=== PATIENT | female | born 1965 | race Caucasian/White ===

== ENCOUNTER 2016-08-01 08:59 | Emergency (ER) | payer MEDICAID ==
[~2016-08-01] VITALS: Ht 162.6 cm; Wt 61.8 kg
[~2016-08-01 08:59] MED LIST: CORT1SOL RIGHT EAR; FURO1TAB62 PO; LEVO50TA4 PO; SPIR50TA PO; XIFA550T4 PO
[2016-08-01 09:05] VITALS: BP 113/59; PULSE 92; RESP 16; TEMP 99; O2SAT 97
[2016-08-01] MEDS ORDERED: ONDANSETRON ODT 4 MG TAB PO ONE (09:30)
[2016-08-01] MEDS ORDERED: DICYCLOMINE HCL 20 MG/2 ML VIAL IM ONE (09:30)
[2016-08-01] MEDS ORDERED: SODIUM CHLORIDE 0.9% FLUSH 5 ML FLUSH IVF PRN (09:30)
--- NOTE | 2016-08-01 09:33 | PD ---
HPI Chief Complaint: GI Complaint Time Seen by Provider: 09:16 Travel History International Travel<30 days: No Contact w/Intl Traveler<30days: No Traveled to known affect area: No History of Present Illness HPI Patient presents with complaints of nausea vomiting and loose stools since last night. Patient has concerns of blood in her stool. States it is bright red. Patient with history of cirrhosis and ascites. 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 Reports poor fluid intake. Denies fever. Positive sick contacts. No new rashes. Reports alcohol cessation for 4 years. PFSH Past Medical History Hx Anticoagulant Therapy: No Arthritis: No Asthma: No Autoimmune Disease: No Anxiety: No Depression: Yes Heart Rhythm Problems: No Cancer: No Cardiovascular Problems: No High Cholesterol: No Chemotherapy: No Chest Pain: No Congestive Heart Failure: No Cirrhosis: Yes COPD: No Cerebrovascular Accident: No Diabetes: No Diminished Hearing: No Endocrine: Yes Gastrointestinal Disorders: Yes (HX OF UPPER GI BLEED;ESOPHAGEAL VARICES ; BLEEDING ULCERS) GERD: Yes Genitourinary: No Hepatitis: Yes (ALCOHOLIC HEPATITIS) Hiatal Hernia: No Immune Disorder: No Kidney Stones: No Musculoskeletal: No Neurologic: Yes Psychiatric: Yes Reproductive: No Respiratory: No Immunizations Current: Yes Migraines: No Radiation Therapy: No Renal Failure: No Seizures: No Sickle Cell Disease: No Sleep Apnea: No Thyroid Disease: Yes (Hypothyroidism) Ulcer: Yes ?: Not Menopausal: Yes Past Surgical History Abdominal Surgery: Yes (umbilical hernia repair ; CHOLECYSTECTOMY) AICD: No Body Medical Devices: NONE Cardiac Surgery: No Cholecystectomy: Yes (2006) Ear Surgery: No Endocrine Surgery: No Eye Surgery: Yes (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) Genitourinary Surgery: No Gynecologic Surgery: Yes (PT STATES AFTER OF DAUGHTER PLACENTA WAS PARITALLY RETAINED; ) Hysterectomy: No Insulin Pump: No Joint Replacement: Yes (RIGHT HIP REPLACEMENT) Oral Surgery: Yes (MULTIPLE ENDOSCOPY WITH CLIPPING AND BANDING) Pacemaker: No Thoracic Surgery: No Other Surgery: Yes (Cholecystectomy) Social History Alcohol Use: No (H/O ALCOHOLISM QUIT 3 YEARS AGO) Tobacco Use: No Substance Use: Yes Allergies-Medications (Allergen,Severity, Reaction): Coded Allergies: Codeine (Verified Allergy, Severe, VOMITING, 08/01/16) MILD REACTION- VOMITING Morphine (Verified Allergy, Severe, Nausea/Vomiting, 08/01/16) MILD REACTION Aspirin (Verified Adverse Reaction, Severe, Bleeding, 08/01/16) STOMACH "BLEEDS" PER PT ; SEVERE REACTION Nortriptyline (Verified Adverse Reaction, Severe, Hallucinations, 08/01/16) vomiting ; INTERMEDIATE REACTION Reported Meds & Prescriptions Reported Meds & Active Scripts Active Zofran (Ondansetron HCl) 4 Mg Tab 4 Mg PO Q6HR PRN Levsin (Hyoscyamine Sulfate) 0.125 Mg Tab 0.125 Mg PO Q4H Reported Zinc 25 Mg Tab 25 Mg PO DAILY Magnesium Citrate 100 Mg Tab 100 Mg PO DAILY Klor-Con M10 (Potassium Chloride Microencaps) 10 Meq Tab 10 Meq PO DAILY Levothyroxine (Levothyroxine Sodium) 50 Mcg Tab 25 Mcg PO DAILY Spironolactone 50 Mg Tab 50 Mg PO DAILY Lasix (Furosemide) 20 Mg Tab 20 Mg PO DAILY Xifaxan (Rifaximin) 550 Mg Tab 550 Mg PO DAILY Review of Systems General / Constitutional: No: Fever Eyes: No: Visual changes HENT: No: Headaches Cardiovascular: No: Chest Pain or Discomfort Respiratory: No: Shortness of Breath Gastrointestinal: Positive: Nausea, Vomiting, Diarrhea, No: Abdominal Pain Genitourinary: No: Dysuria Musculoskeletal: No: Pain Skin: No Rash Neurologic: No: Weakness Psychiatric: No: Depression Endocrine: No: Polydipsia Hematologic/Lymphatic: No: Easy Bruising Physical Exam Narrative GENERAL: Well-nourished, well-developed patient. SKIN: Warm and dry. HEAD: Normocephalic. EYES: No scleral icterus. No injection or drainage. NECK: Supple, trachea midline. No JVD or lymphadenopathy. CARDIOVASCULAR: Regular rate and rhythm without murmurs, gallops, or rubs. RESPIRATORY: Breath sounds equal bilaterally. No accessory muscle use. GASTROINTESTINAL: Abdomen soft, distended, nontender, positive fluid wave MUSCULOSKELETAL: No cyanosis, or edema. BACK: Nontender without obvious deformity. No CVA tenderness. Data Data Last Documented VS Vital Signs Date Time Temp Pulse Resp B/P Pulse Ox O2 Delivery O2 Flow Rate FiO2 08/01/16 09:31 20 08/01/16 09:05 99.0 92 113/59 97 Orders Complete Blood Count With Diff (08/01/16 09:16) Urinalysis - C+S If Indicated (08/01/16 09:16) Iv Access Insert/Monitor (08/01/16 09:16) Sodium Chloride 0.9% Flush (Ns Flush) (08/01/16 09:30) Dicyclomine Inj (Bentyl Inj) (08/01/16 09:30) Ondansetron Odt (Zofran Odt) (08/01/16 09:30) Urine Culture (08/01/16 09:35) Labs Laboratory Tests Test 08/01/16 08/01/16 09:35 09:38 Urine Collection Type CLEAN CATCH Urine Color DILAN Urine Turbidity SLIGHT Urine pH 8.0 Urine Specific [place] 1.026 Urine Protein TRACE mg/dL Urine Glucose (UA) NEG mg/dL Urine Ketones TRACE mg/dL Urine Occult Blood TRACE Urine Nitrite NEG Urine Bilirubin NEG Urine Leukocyte Esterase NEG Urine RBC 0-3 /hpf Urine WBC 0-2 /hpf Urine Squamous Epithelial 6-8 /hpf Cells Urine Amorphous Sediment MOD Urine Bacteria MOD /hpf Microscopic Urinalysis Comment CULTURE INDICATED Urine Collection Time 0935 White Blood Count 3.5 TH/MM3 Red Blood Count 3.67 MIL/MM3 Hemoglobin 12.2 GM/DL Hematocrit 35.5 % Mean Corpuscular Volume 96.7 FL Mean Corpuscular Hemoglobin 33.1 PG Mean Corpuscular Hemoglobin 34.2 % Concent Red Cell Distribution Width 16.0 % Platelet Count 79 TH/MM3 Mean Platelet Volume 7.1 FL Neutrophils (%) (Auto) 55.8 % Lymphocytes (%) (Auto) 19.0 % Monocytes (%) (Auto) 18.6 % Eosinophils (%) (Auto) 4.8 % Basophils (%) (Auto) 1.8 % Neutrophils # (Auto) 1.9 TH/MM3 Lymphocytes # (Auto) 0.7 TH/MM3 Monocytes # (Auto) 0.6 TH/MM3 Eosinophils # (Auto) 0.2 TH/MM3 Basophils # (Auto) 0.1 TH/MM3 CBC Comment AUTO DIFF Differential Comment AUTO DIFF CONFIRMED Platelet Estimate LOW Platelet Morphology Comment NORMAL MDM Medical Decision Making Medical Screen Exam Complete: Yes Emergency Medical Condition: Yes Differential Diagnosis Gastroenteritis, progressive cirrhosis, reflux Narrative Course Assessment and plan discussed with patient at bedside. Hemoccult positive. Tolerated fluid challenge. CBC did not reveal anemia. Diagnosis Primary Impression: Gastroenteritis Additional Impression: BRBPR (bright red blood per rectum) Additional Instructions: Anti-medic and antispasmodic as directed. Encouraged to keep her Tuesday appointment with her thermodynamicist. Encouraged a bland high-fiber brat diet. Encouraged fluids. Med/Other Pt SpecificInfo: Prescription(s) given Scripts Ondansetron (Zofran)4 Mg Tab4 Mg PO Q6HR PRN (NAUSEA OR VOMITING) #20 TAB Ref 0 Prov:Alonso Salas MD 08/01/16 Hyoscyamine (Levsin)0.125 Mg Tab0.125 Mg PO Q4H #20 TAB Ref 0 Prov:Alonso Salas MD 08/01/16 Disposition: DISCHARGE HOME Condition: Good Alonso Salas MD Aug 01, 2016 09:33
[2016-08-01] MEDS ORDERED: ZINC25TA PO (09:39)
[2016-08-01] MEDS ORDERED: MAGN100T2 PO (09:39)
[2016-08-01] MEDS ORDERED: POTA-88 PO (09:39)
[2016-08-01 09:46] LABS: AUTOMATED NEUTROPHIL # 1.9 TH/MM3 (1.8-7.7); BASOPHIL # 0.1 TH/MM3 (0-0.2); BASOPHIL % 1.8 % (0.0-2.0); EOSINOPHIL # 0.2 TH/MM3 (0-0.4); EOSINOPHIL % 4.8 % (0.0-4.0); HEMATOCRIT 35.5 % (35.0-46.0); LYMPHOCYTE # 0.7 TH/MM3 (1.0-4.8); MEAN CELL VOLUME 96.7 FL (80.0-100.0); MEAN CORPUSCULAR HEMOGLOBIN 33.1 PG (27.0-34.0); MEAN CORPUSCULAR HGB CONC 34.2 % (32.0-36.0); MONO % 18.6 % (0.0-8.0); NEUT % 55.8 % (16.0-70.0); PLATELET COUNT 79 TH/MM3 (150-450); RED BLOOD COUNT 3.67 MIL/MM3 (4.00-5.30); WHITE BLOOD COUNT 3.5 TH/MM3 (4.0-11.0)
[2016-08-01 09:49] LABS: HEMO FLAGS AUTO DIFF
[2016-08-01 09:57] LABS: BLOOD, URINE TRACE (NEG); GLUCOSE,URINE NEG (NEG); KETONE, URINE TRACE mg/dL (NEG); NITRITE,URINE NEG (NEG)
[2016-08-01] MEDS ORDERED: ZOFR4TAB PO (09:58)
[2016-08-01] MEDS ORDERED: LEVS0.123 PO (09:58)
[2016-08-01 09:59] LABS: METHOD OF COLLECTION CLEAN CATCH; URINE COLOR AMBER (YELLW/STRAW)
[2016-08-01 10:02] LABS: BACTERIA, URINE MOD /hpf; COMMENT (UR) CULTURE INDICATED; COMMENT2 (UR) MUCOUS PRESENT; CULTURE IF INDICATED CULTURE INDICATED; RBC, URINE 0-3 /hpf (0-3); WBC, URINE 0-2 /hpf (0-5)
[2016-08-01 10:06] LABS: PLATELET ESTIMATE SMEAR LOW (NORMAL); PLATELET MORPHOLOGY NORMAL (NORMAL); SCAN/DIFF AUTO DIFF CONFIRMED
[2016-08-01 11:20] VITALS: BP 115/61
== END 2016-08-01 11:22 | disposition home or self-care (01) ==
LOC: PHED 08:59
DX: K52.9 Noninfective gastroenteritis and colitis, unspecified (principal); K62.5 Hemorrhage of anus and rectum; K74.60 Unspecified cirrhosis of liver; R18.8 Other ascites; K21.9 Gastro-esophageal reflux disease without esophagitis; E03.9 Hypothyroidism, unspecified; R82.90 Unspecified abnormal findings in urine
CPT/HCPCS: 81001; 85025; 87086; 96372; 99284; J0500

== ENCOUNTER 2016-08-07 08:40 | Emergency (ER) | payer MEDICAID ==
[~2016-08-07] VITALS: Ht 162.6 cm; Wt 62.0 kg
[~2016-08-07 08:40] MED LIST changes: -CORT1SOL RIGHT EAR; +LEVS0.123 PO; +MAGN100T2 PO; +POTA-88 PO; +ZINC25TA PO; +ZOFR4TAB PO
[2016-08-07 08:44] VITALS: BP 113/66; PULSE 86; RESP 16; TEMP 98.6; O2SAT 97
[2016-08-07] MEDS ORDERED: PANT40TA3 PO (09:05)
[2016-08-07] MEDS ORDERED: SODIUM CHLORIDE 0.9% FLUSH 5 ML FLUSH IVF PRN (09:15)
--- NOTE | 2016-08-07 09:16 | PD ---
HPI Chief Complaint: Abdominal Pain Time Seen by Provider: 09:07 Travel History International Travel<30 days: No Contact w/Intl Traveler<30days: No Traveled to known affect area: No History of Present Illness HPI 51-year-old female with history of cirrhosis, GI bleeding, ascites, follows up with Drs. Tsai, seen last week for gastroenteritis, presents to the ER today because of increased abdominal bloating, discomfort, and shortness of breath. She states that she had been seen by her GI doctor on Tuesday and they had increased her furosemide and her spironolactone. However, she is still feeling increased bloating. Pain is rated 8 out of 10. She denies any vomiting, fevers, blood in the stools, black stools, or any other symptoms. She states that she had some blood in the stools as well during her last visit. Modifying Factors: None Associated Signs & Symptoms: Increased abdominal girth, abdominal discomfort, shortness of breath Risk Factors: Cirrhosis, ascites PFSH Past Medical History Hx Anticoagulant Therapy: No Arthritis: No Asthma: No Autoimmune Disease: No Anxiety: No Depression: Yes Heart Rhythm Problems: No Cancer: No Cardiovascular Problems: No High Cholesterol: No Chemotherapy: No Chest Pain: No Congestive Heart Failure: No Cirrhosis: Yes COPD: No Cerebrovascular Accident: No Diabetes: No Diminished Hearing: No Endocrine: Yes Gastrointestinal Disorders: Yes (HX OF UPPER GI BLEED;ESOPHAGEAL VARICES ; BLEEDING ULCERS) GERD: Yes Genitourinary: No Hepatitis: Yes (ALCOHOLIC HEPATITIS) Hiatal Hernia: No Immune Disorder: No Kidney Stones: No Medical other: Yes (ETHROMBOCYTOPENIA) Musculoskeletal: No Neurologic: Yes Psychiatric: Yes Reproductive: No Respiratory: No Immunizations Current: Yes Migraines: No Radiation Therapy: No Renal Failure: No Seizures: No Sickle Cell Disease: No Sleep Apnea: No Thyroid Disease: Yes (Hypothyroidism) Ulcer: Yes ?: Not LMP: MENOPAUSAL Menopausal: Yes Past Surgical History Abdominal Surgery: Yes (umbilical hernia repair , ESOPHAGEAL BANDING) AICD: No Body Medical Devices: NONE Cardiac Surgery: No Cholecystectomy: Yes (2006) Ear Surgery: No Endocrine Surgery: No Eye Surgery: Yes (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) Genitourinary Surgery: No Gynecologic Surgery: Yes (PT STATES AFTER OF DAUGHTER PLACENTA WAS PARITALLY RETAINED; ) Hysterectomy: No Insulin Pump: No Joint Replacement: Yes (RIGHT HIP REPLACEMENT) Oral Surgery: Yes Pacemaker: No Thoracic Surgery: No Other Surgery: Yes (Cholecystectomy) Social History Alcohol Use: No (H/O ALCOHOLISM QUIT 3 YEARS AGO) Tobacco Use: No Substance Use: Yes Allergies-Medications (Allergen,Severity, Reaction): Coded Allergies: Codeine (Verified Allergy, Severe, VOMITING, 08/07/16) MILD REACTION- VOMITING Morphine (Verified Allergy, Severe, Nausea/Vomiting, 08/07/16) MILD REACTION Aspirin (Verified Adverse Reaction, Severe, Bleeding, 08/07/16) STOMACH "BLEEDS" PER PT ; SEVERE REACTION Nortriptyline (Verified Adverse Reaction, Severe, Hallucinations, 08/07/16) vomiting ; INTERMEDIATE REACTION Reported Meds & Prescriptions Reported Meds & Active Scripts Active Reported Pantoprazole (Pantoprazole Sodium) 40 Mg Tab 40 Mg PO DAILY Levothyroxine (Levothyroxine Sodium) 50 Mcg Tab 50 Mcg PO DAILY Spironolactone 50 Mg Tab 100 Mg PO DAILY Lasix (Furosemide) 20 Mg Tab 40 Mg PO DAILY Xifaxan (Rifaximin) 550 Mg Tab 550 Mg PO DAILY Review of Systems Except as stated in HPI: all other systems reviewed are Neg Physical Exam Narrative GENERAL: Well-nourished, well-developed middle aged white female patient in no acute distress at rest. SKIN: Warm and dry. HEAD: Normocephalic. EYES: No scleral icterus. No injection or drainage. NECK: Supple, trachea midline. CARDIOVASCULAR: Regular rate and rhythm without murmurs, gallops, or rubs. RESPIRATORY: Breath sounds equal bilaterally. No accessory muscle use. GASTROINTESTINAL: Abdomen moderately distended, nontender, positive fluid wave. MUSCULOSKELETAL: No cyanosis, or edema. BACK: Nontender without obvious deformity. No CVA tenderness. Data Data Last Documented VS Vital Signs Date Time Temp Pulse Resp B/P Pulse Ox O2 Delivery O2 Flow Rate FiO2 08/07/16 09:37 99 Room Air 08/07/16 08:44 98.6 86 16 113/66 Orders Complete Blood Count With Diff (08/07/16 09:07) Comprehensive Metabolic Panel (08/07/16 09:07) Lipase (08/07/16 09:07) Urinalysis - C+S If Indicated (08/07/16 09:07) Abdomen, Flat & Upright (08/07/16 ) Iv Access Insert/Monitor (08/07/16 09:07) Ecg Monitoring (08/07/16 09:07) Oximetry (08/07/16 09:07) Sodium Chloride 0.9% Flush (Ns Flush) (08/07/16 09:15) Chest, Single Ap (08/07/16 09:07) Furosemide Inj (Lasix Inj) (08/07/16 11:15) Labs Laboratory Tests Test 08/07/16 08/07/16 09:21 09:25 White Blood Count 4.5 TH/MM3 Red Blood Count 3.82 MIL/MM3 Hemoglobin 12.5 GM/DL Hematocrit 37.2 % Mean Corpuscular Volume 97.2 FL Mean Corpuscular Hemoglobin 32.7 PG Mean Corpuscular Hemoglobin 33.6 % Concent Red Cell Distribution Width 17.7 % Platelet Count 108 TH/MM3 Mean Platelet Volume 7.9 FL Neutrophils (%) (Auto) 54.8 % Lymphocytes (%) (Auto) 25.6 % Monocytes (%) (Auto) 11.8 % Eosinophils (%) (Auto) 5.7 % Basophils (%) (Auto) 2.1 % Neutrophils # (Auto) 2.4 TH/MM3 Lymphocytes # (Auto) 1.2 TH/MM3 Monocytes # (Auto) 0.5 TH/MM3 Eosinophils # (Auto) 0.3 TH/MM3 Basophils # (Auto) 0.1 TH/MM3 CBC Comment DIFF FINAL Differential Comment Sodium Level 137 MEQ/L Potassium Level 4.8 MEQ/L Chloride Level 104 MEQ/L Carbon Dioxide Level 24.5 MEQ/L Anion Gap 9 MEQ/L Blood Urea Nitrogen 5 MG/DL Creatinine 0.76 MG/DL Estimat Glomerular Filtration 80 ML/MIN Rate Random Glucose 101 MG/DL Calcium Level 7.5 MG/DL Protein Corrected Calcium 7.5 MG/DL Total Bilirubin 3.2 MG/DL Aspartate Amino Transf 87 U/L (AST/SGOT) Alanine Aminotransferase 35 U/L (ALT/SGPT) Alkaline Phosphatase 198 U/L Total Protein 7.0 GM/DL Albumin 1.9 GM/DL Lipase 96 U/L Urine Collection Type CLEAN CATCH Urine Color YELLOW Urine Turbidity CLEAR Urine pH 6.5 Urine Specific [place] 1.007 Urine Protein NEG mg/dL Urine Glucose (UA) NEG mg/dL Urine Ketones NEG mg/dL Urine Occult Blood NEG Urine Nitrite NEG Urine Bilirubin NEG Urine Leukocyte Esterase NEG Urine WBC 0-2 /hpf Urine Squamous Epithelial 0-5 /hpf Cells Microscopic Urinalysis Comment CULT NOT INDICATED Urine Collection Time 09:25 [facility] Medical Decision Making Medical Screen Exam Complete: Yes Emergency Medical Condition: Yes Medical Record Reviewed: Yes Interpretation(s) Laboratory Tests Test 08/07/16 09:21 Red Blood Count 3.82 MIL/MM3 (4.00-5.30) Red Cell Distribution Width 17.7 % (11.6-17.2) Platelet Count 108 TH/MM3 (150-450) Monocytes (%) (Auto) 11.8 % (0.0-8.0) Eosinophils (%) (Auto) 5.7 % (0.0-4.0) Basophils (%) (Auto) 2.1 % (0.0-2.0) Blood Urea Nitrogen 5 MG/DL (7-18) Estimat Glomerular Filtration 80 ML/MIN (>89) Rate Calcium Level 7.5 MG/DL (8.5-10.1) Protein Corrected Calcium 7.5 MG/DL (8.5-10.1) Total Bilirubin 3.2 MG/DL (0.2-1.0) Aspartate Amino Transf 87 U/L (15-37) (AST/SGOT) Alkaline Phosphatase 198 U/L (45-117) Albumin 1.9 GM/DL (3.4-5.0) Last 24 hours Impressions Chest X-Ray 08/07/16 0907 Signed Impressions: Service Date/Time: Sunday, August 07, 2016 09:25 - CONCLUSION: No acute disease. Chandrakant Srinivasan MD Abdomen X-Ray 08/07/16 0000 Signed Impressions: Service Date/Time: Sunday, August 07, 2016 09:21 - CONCLUSION: Nonobstructive bowel gas pattern. Chandrakant Srinivasan MD Differential Diagnosis Worsening ascites versus SBP versus obstruction Narrative Course Patient has no significant leukocytosis and abdomen is nontender, I do not suspect SBP in this case. X-ray of the abdomen did not reveal any signs of acute obstruction. Chest x-ray did not show any signs of acute pulmonary processes. Lab work did not show significant changes from baseline. Her liver enzymes are mildly elevated consistent with history of cirrhosis. Her ascites is moderate although not tense at this time. Vital signs are stable with normal saturations. She is not in acute distress in the ER. At this point, the case was discussed with Dr. Moscoso who is covering for patient's GI doctor and he states that at this point he would continue medical management on current dosages and give the patient a dose of Lasix here in the ER. He has recommended that the patient follow-up in the office this week to see how her medical management is going and she can always get paracentesis in the office as needed as well. In addition, he agrees with giving tramadol for pain as needed. Return for any worsening in symptoms as necessary. The plan has been discussed with her and she is agreeable. Diagnosis Primary Impression: OTHER ASCITES Referrals: Dillon Burnett MD Med/Other Pt SpecificInfo: Prescription(s) given Scripts Tramadol 50 Mg Tab50 Mg PO Q6H PRN (PAIN) #20 TAB Ref 0 Prov:Jennifer Levi MD 08/07/16 Disposition: 01 DISCHARGE HOME Condition: Stable Jennifer Levi MD Aug 07, 2016 09:16
[2016-08-07 09:32] LABS: BLOOD, URINE NEG (NEG); GLUCOSE,URINE NEG (NEG); KETONE, URINE NEG (NEG); NITRITE,URINE NEG (NEG); PH, URINE 6.5 (5.0-8.5)
[2016-08-07 09:33] LABS: AUTOMATED NEUTROPHIL # 2.4 TH/MM3 (1.8-7.7); BASOPHIL # 0.1 TH/MM3 (0-0.2); BASOPHIL % 2.1 % (0.0-2.0); EOSINOPHIL # 0.3 TH/MM3 (0-0.4); EOSINOPHIL % 5.7 % (0.0-4.0); HEMATOCRIT 37.2 % (35.0-46.0); HEMO FLAGS DIFF FINAL; LYMPH % 25.6 % (9.0-44.0); LYMPHOCYTE # 1.2 TH/MM3 (1.0-4.8); MEAN CELL VOLUME 97.2 FL (80.0-100.0); MEAN CORPUSCULAR HEMOGLOBIN 32.7 PG (27.0-34.0); MEAN CORPUSCULAR HGB CONC 33.6 % (32.0-36.0); MONO % 11.8 % (0.0-8.0); NEUT % 54.8 % (16.0-70.0); PLATELET COUNT 108 TH/MM3 (150-450); RED BLOOD COUNT 3.82 MIL/MM3 (4.00-5.30); RED CELL DISTRIBUTION WIDTH 17.7 % (11.6-17.2); WHITE BLOOD COUNT 4.5 TH/MM3 (4.0-11.0)
[2016-08-07 09:36] LABS: METHOD OF COLLECTION CLEAN CATCH; URINE COLOR YELLOW (YELLW/STRAW); WBC, URINE 0-2 /hpf (0-5)
[2016-08-07 09:37] VITALS: O2SAT 99
[2016-08-07 09:37] LABS: COMMENT (UR) CULT NOT INDICATED; CULTURE IF INDICATED CULT NOT INDICATED; SQUAMOUS EPITHELIAL CELL URINE 0-5 /hpf (0-5)
--- NOTE | 2016-08-07 09:46 | RADHPO ---
EXAM DATE/TIME: 08/07/2016 09:21 [facility] COMPARISON: No previous studies available for comparison. INDICATIONS : Abdomen pain, swelling, fever, cough, short of breath MEDICAL HISTORY : Liver failure, ascites SURGICAL HISTORY : Inguinal hernia repair. left hip ENCOUNTER: Initial ACUITY: 1 week PAIN SCORE: 8/10 LOCATION: Bilateral abdomen FINDINGS: Supine and upright views of the abdomen were performed. The abdominal bowel gas pattern is normal. No air fluid levels are seen. No abnormal masses, calcifications, or organomegaly is seen. The visu alized lower lungs are clear. No evidence of free intraperitoneal gas. Left hip prosthesis. The oss eous structures are unremarkable. CONCLUSION: Nonobstructive bowel gas pattern. Chandrakant Srinivasan MD on August 07, 2016 at 9:44 Board Certified Radiologist. This report was verified electronically.
--- NOTE | 2016-08-07 09:46 | RADHPO ---
EXAM DATE/TIME: 08/07/2016 09:25 [facility] COMPARISON: CHEST SINGLE AP, March 09, 2013, 9:18. INDICATIONS : Short of breath, fever, cough, abdomen pain MEDICAL HISTORY : liver failure, ascites SURGICAL HISTORY : Inguinal hernia repair. left hip ENCOUNTER: Initial ACUITY: 1 week PAIN SCORE: 0/10 LOCATION: Bilateral chest FINDINGS: A single view of the chest demonstrates the lungs to be symmetrically aerated without evidence of mas s, infiltrate or effusion. The cardiomediastinal contours are unremarkable. Osseous structures are intact. CONCLUSION: No acute disease. Chandrakant Srinivasan MD on August 07, 2016 at 9:45 Board Certified Radiologist. This report was verified electronically.
[2016-08-07 10:39] LABS: BICARBONATE 24.5 MEQ/L (21.0-32.0); CALCIUM-PROTEIN CORRECTED 7.5 MG/DL (8.5-10.1); POTASSIUM 4.8 MEQ/L (3.5-5.1); TOTAL BILIRUBIN ADULT 3.2 MG/DL (0.2-1.0)
[2016-08-07] MEDS ORDERED: FUROSEMIDE 40 MG/4 ML VIAL IV PUSH ONE (11:15)
[2016-08-07] MEDS ORDERED: TRAM50TA PO (11:20)
[2016-08-07 11:38] VITALS: BP 95/53; PULSE 76; RESP 15; O2SAT 98
== END 2016-08-07 12:03 | disposition home or self-care (01) ==
LOC: PHED 08:40
DX: R18.8 Other ascites (principal); K74.60 Unspecified cirrhosis of liver; R06.02 Shortness of breath; E03.9 Hypothyroidism, unspecified; Z86.59 Personal history of other mental and behavioral disorders; Z87.19 Personal history of other diseases of the digestive system; Z86.69 Personal history of other diseases of the nervous system and sense organs; Z86.2 Personal history of diseases of the blood and blood-forming organs and certain disorders involving the immune mechanism
CPT/HCPCS: 71010; 74020; 80053; 81001; 83690; 85025; 99284

== ENCOUNTER 2016-08-13 10:13 | Emergency (ER) | payer MEDICAID ==
[~2016-08-13] VITALS: Ht 162.6 cm; Wt 58.5 kg
[~2016-08-13 10:13] MED LIST changes: -LEVS0.123 PO; -MAGN100T2 PO; +PANT40TA3 PO; -POTA-88 PO; +TRAM50TA PO; -ZINC25TA PO; -ZOFR4TAB PO
[2016-08-13 10:16] VITALS: BP 100/54; PULSE 80; RESP 16; TEMP 99.2; O2SAT 96
[2016-08-13] MEDS ORDERED: SODIUM CHLOR 0.9% 1000 ML INJ 1,000 ML IV SCH (11:24)
[2016-08-13 11:26] VITALS: O2SAT 96
[2016-08-13] MEDS ORDERED: SODIUM CHLORIDE 0.9% FLUSH 5 ML FLUSH IVF PRN (11:30)
[2016-08-13 11:34] LABS: AUTOMATED NEUTROPHIL # 2.8 TH/MM3 (1.8-7.7); BASOPHIL # 0.1 TH/MM3 (0-0.2); BASOPHIL % 3.2 % (0.0-2.0); EOSINOPHIL # 0.2 TH/MM3 (0-0.4); EOSINOPHIL % 5.1 % (0.0-4.0); HEMATOCRIT 40.2 % (35.0-46.0); HEMO FLAGS DIFF FINAL; LYMPH % 17.9 % (9.0-44.0); LYMPHOCYTE # 0.8 TH/MM3 (1.0-4.8); MEAN CELL VOLUME 98.3 FL (80.0-100.0); MEAN CORPUSCULAR HEMOGLOBIN 32.2 PG (27.0-34.0); MEAN CORPUSCULAR HGB CONC 32.8 % (32.0-36.0); MONO % 10.2 % (0.0-8.0); NEUT % 63.6 % (16.0-70.0); PLATELET COUNT 104 TH/MM3 (150-450); RED BLOOD COUNT 4.09 MIL/MM3 (4.00-5.30); WHITE BLOOD COUNT 4.3 TH/MM3 (4.0-11.0)
[2016-08-13 11:50] LABS: INTERNATIONAL NORMALIZED RATIO 1.4 RATIO; PROTHROMBIN TIME - PATIENT 16.2 SEC (9.8-11.6)
--- NOTE | 2016-08-13 12:06 | PD ---
HPI Chief Complaint: GI Complaint Time Seen by Provider: 11:01 Travel History International Travel<30 days: No Contact w/Intl Traveler<30days: No Traveled to known affect area: No History of Present Illness HPI 51-year-old female came to the emergency room with history of ascites, constipation and abdominal discomfort that's been for past week. Her last bowel movement was 1 week ago. Patient has history of alcoholic cirrhosis and has history of ascites. She was seen in the emergency room on the for abdominal pain with some rectal bleeding. After the workup she was discharged home. As per the patient she went to see her GI specialist Dr. Burnett and was told that she should go back to the emergency room to be admitted so that a colonoscopy can be done. She says that her GI specialist just cannot do it in the office since he no longer takes her insurance. Patient does not have any rectal bleed currently. In fact she hasn't had a bowel movement in 6 days. She has not been drinking much fluid she says. Her appetite is not what it used to be. Vital signs however are stable. [facility] Past Medical History Narrative Medical List of her past, social and family medical history was reviewed from the nursing note. Hx Anticoagulant Therapy: No Arthritis: No Asthma: No Autoimmune Disease: No Anxiety: No Depression: Yes Heart Rhythm Problems: No Cancer: No Cardiovascular Problems: No High Cholesterol: No Chemotherapy: No Chest Pain: No Congestive Heart Failure: No Cirrhosis: Yes COPD: No Cerebrovascular Accident: No Diabetes: No Diminished Hearing: No Endocrine: Yes Gastrointestinal Disorders: Yes (HX OF UPPER GI BLEED;ESOPHAGEAL VARICES ; BLEEDING ULCERS) GERD: Yes Genitourinary: No Hepatitis: Yes (ALCOHOLIC HEPATITIS) Hiatal Hernia: No Immune Disorder: No Kidney Stones: No Medical other: Yes (ESOPHAGEAL VARICES; LIVER CIRRHOSIS; THROMBOCYTOPENIA ;) Musculoskeletal: No Neurologic: Yes Psychiatric: Yes Reproductive: No Respiratory: No Immunizations Current: Yes Migraines: No Radiation Therapy: No Renal Failure: No Seizures: No Sickle Cell Disease: No Sleep Apnea: No Thyroid Disease: Yes (Hypothyroidism) Ulcer: Yes Tetanus Vaccination: > 5 Years Influenza Vaccination: Yes ?: Not Menopausal: Yes Past Surgical History Abdominal Surgery: Yes (umbilical hernia repair , ESOPHAGEAL BANDING) AICD: No Body Medical Devices: NONE Cardiac Surgery: No Cholecystectomy: Yes (2006) Ear Surgery: No Endocrine Surgery: No Eye Surgery: Yes (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) Genitourinary Surgery: No Gynecologic Surgery: Yes (PT STATES AFTER OF DAUGHTER PLACENTA WAS PARITALLY RETAINED; ) Hysterectomy: No Insulin Pump: No Joint Replacement: Yes (RIGHT HIP REPLACEMENT) Oral Surgery: Yes Pacemaker: No Thoracic Surgery: No Other Surgery: Yes (Cholecystectomy) Social History Alcohol Use: No (H/O ALCOHOLISM QUIT 3 YEARS AGO) Tobacco Use: No Substance Use: Yes Allergies-Medications (Allergen,Severity, Reaction): Coded Allergies: Codeine (Verified Allergy, Severe, VOMITING, 08/13/16) MILD REACTION- VOMITING Morphine (Verified Allergy, Severe, Nausea/Vomiting, 08/13/16) MILD REACTION Aspirin (Verified Adverse Reaction, Severe, Bleeding, 08/13/16) STOMACH "BLEEDS" PER PT ; SEVERE REACTION Nortriptyline (Verified Adverse Reaction, Severe, Hallucinations, 08/13/16) vomiting ; INTERMEDIATE REACTION Comments List of her allergies reviewed from the nursing note. Reported Meds & Prescriptions Reported Meds & Active Scripts Active Reported Pantoprazole (Pantoprazole Sodium) 40 Mg Tab 40 Mg PO DAILY Levothyroxine (Levothyroxine Sodium) 50 Mcg Tab 50 Mcg PO DAILY Spironolactone 50 Mg Tab 100 Mg PO DAILY Lasix (Furosemide) 20 Mg Tab 40 Mg PO DAILY Xifaxan (Rifaximin) 550 Mg Tab 550 Mg PO DAILY Narrative Medication List of her home medications reviewed from the nursing note. Review of Systems Except as stated in HPI: all other systems reviewed are Neg Physical Exam Narrative GENERAL: Awake, alert, mild distress SKIN: Warm and dry. HEAD: Atraumatic. Normocephalic. EYES: Pupils equal and round. No scleral icterus. No injection or drainage. ENT: No nasal bleeding or discharge. Dry mucous membrane NECK: Trachea midline. No JVD. CARDIOVASCULAR: Regular rate and rhythm. No murmur appreciated. RESPIRATORY: No accessory muscle use. Clear to auscultation. Breath sounds equal bilaterally. GASTROINTESTINAL: Abdomen soft, distended, ascites. Hepatic and splenic margins not palpable. MUSCULOSKELETAL: No obvious deformities. No clubbing. No cyanosis. No edema. NEUROLOGICAL: Awake and alert. No obvious cranial nerve deficits. Motor grossly within normal limits. Normal speech. PSYCHIATRIC: Appropriate mood and affect; insight and judgment normal. Data Data Last Documented VS Vital Signs Date Time Temp Pulse Resp B/P Pulse Ox O2 Delivery O2 Flow Rate FiO2 08/13/16 13:40 74 17 101/65 98 Room Air 08/13/16 10:16 99.2 Orders Complete Blood Count With Diff (08/13/16 11:24) Comprehensive Metabolic Panel (08/13/16 11:24) Prothrombin Time / Inr (Pt) (08/13/16 11:24) Ct Abd/Pel W/O Iv Contrast (08/13/16 11:24) Iv Access Insert/Monitor (08/13/16 11:24) Ecg Monitoring (08/13/16 11:24) Oximetry (08/13/16 11:24) Sodium Chlor 0.9% 1000 Ml Inj (Ns 1000 M (08/13/16 11:24) Sodium Chloride 0.9% Flush (Ns Flush) (08/13/16 11:30) Type And Screen (08/13/16 11:24) Labs Laboratory Tests Test 08/13/16 08/13/16 11:30 12:25 White Blood Count 4.3 TH/MM3 Red Blood Count 4.09 MIL/MM3 Hemoglobin 13.2 GM/DL Hematocrit 40.2 % Mean Corpuscular Volume 98.3 FL Mean Corpuscular Hemoglobin 32.2 PG Mean Corpuscular Hemoglobin 32.8 % Concent Red Cell Distribution Width 17.0 % Platelet Count 104 TH/MM3 Mean Platelet Volume 7.1 FL Neutrophils (%) (Auto) 63.6 % Lymphocytes (%) (Auto) 17.9 % Monocytes (%) (Auto) 10.2 % Eosinophils (%) (Auto) 5.1 % Basophils (%) (Auto) 3.2 % Neutrophils # (Auto) 2.8 TH/MM3 Lymphocytes # (Auto) 0.8 TH/MM3 Monocytes # (Auto) 0.4 TH/MM3 Eosinophils # (Auto) 0.2 TH/MM3 Basophils # (Auto) 0.1 TH/MM3 CBC Comment DIFF FINAL Differential Comment Prothrombin Time 16.2 SEC Prothromb Time International 1.4 RATIO Ratio Blood Type O POSITIVE Antibody Screen NEGATIVE Sodium Level 139 MEQ/L Potassium Level 3.9 MEQ/L Chloride Level 103 MEQ/L Carbon Dioxide Level 26.3 MEQ/L Anion Gap 10 MEQ/L Blood Urea Nitrogen 6 MG/DL Creatinine 0.68 MG/DL Estimat Glomerular Filtration 91 ML/MIN Rate Random Glucose 91 MG/DL Calcium Level 7.6 MG/DL Total Bilirubin 3.7 MG/DL Aspartate Amino Transf 71 U/L (AST/SGOT) Alanine Aminotransferase 31 U/L (ALT/SGPT) Alkaline Phosphatase 219 U/L Total Protein 7.5 GM/DL Albumin 2.1 GM/DL MDM Medical Decision Making Medical Screen Exam Complete: Yes Emergency Medical Condition: Yes Medical Record Reviewed: Yes Differential Diagnosis Ascites, constipation, rectal bleeding Narrative Course 1:11 PM blood test results are back and within acceptable limits. CT Scan shows tense ascites. Awaiting for the hospitalist to call back to admit this patient. They will need to consult her GI specialist when she is admitted to get further instructions. 2:02 PM I discussed the case with patient's GI specialist Dr. Burnett upon the Hospitalist's request since she did not meet admission criteria as per her and expressed to him about the lab results being completely normal and patient not having any active rectal bleed. He said there was a miscommunication and what he had actually told the patient was that she should come to the emergency room if she is having rectal bleeding. Otherwise if I am comfortable then the patient can be discharged home. He will follow-up with the patient and try to schedule a colonoscopy as an outpatient. This has been mentioned to the patient and she understands. She will be going home. Procedures EKG Prior to Arrival: No Diagnosis Primary Impression: Ascites Qualified Code: K70.31 - Ascites due to alcoholic cirrhosis Additional Impressions: Alcoholic cirrhosis of liver Qualified Code: K70.31 - Alcoholic cirrhosis of liver with ascites History of rectal bleeding Jaundice Referrals: Dillon Burnett MD 2 days Additional Instructions: Please return to the ER if you're having rectal bleeding or any other concerns. Otherwise follow-up with your GI specialist in couple days. Med/Other Pt SpecificInfo: No Change to Meds Disposition: 01 DISCHARGE HOME Condition: Stable Sotero Tolentino MD Aug 13, 2016 12:06
--- NOTE | 2016-08-13 12:27 | RADHPO ---
EXAM DATE/TIME: 08/13/2016 11:46 [facility] COMPARISON: No previous studies available for comparison. INDICATIONS: Abdominal pain and distention x 2 weeks. Constipation x 6 days. ORAL CONTRAST: No oral contrast ingested. RADIATION DOSE: 6.65 CTDIvol (mGy) MEDICAL HISTORY: Gastroesophageal reflux disease. Ascites. SURGICAL HISTORY: Cholecystectomy. ENCOUNTER: Initial ACUITY: 2 weeks PAIN SCALE: 7/10 LOCATION: Diffuse abdomen. TECHNIQUE: Volumetric scanning of the abdomen and pelvis was performed. Using automated exposure control and ad justment of the mA and/or kV according to patient size, radiation dose was kept as low as reasonably achievable to obtain optimal diagnostic quality images. FINDINGS: Lung bases are clear. Moderate ascites is present extending into the pelvis. Moderate edema is pre sent in the mesentery. Liver is small and shrunken. Spleen is mildly prominent. Lack of intravenous contrast makes evaluation of portal vein difficult. There is a focal low density lesion present in the left lobe of the liver that measures approximately 1.8 cm. This is incompletely evaluated on today's exam. Kidneys are unremarkable. Pelvic contents otherwise than ascites unremarkable. CONCLUSION: Tense ascites. Etiology is not apparent on this non-contrast CT. Kaz Anderson MD FACR on August 13, 2016 at 12:19 Board Certified Radiologist. This report was verified electronically.
[2016-08-13 12:40] LABS: CHLORIDE 103 MEQ/L (98-107); POTASSIUM 3.9 MEQ/L (3.5-5.1); SODIUM (NA) 139 MEQ/L (136-145)
[2016-08-13 12:45] LABS: ANION GAP 10 MEQ/L (5-15); BICARBONATE 26.3 MEQ/L (21.0-32.0); BLOOD UREA NITROGEN 6 MG/DL (7-18)
[2016-08-13 12:48] LABS: ALT (GPT) 31 U/L (10-53); AST (GOT) 71 U/L (15-37); GLOMERULAR FILTRATION RATE 91 ML/MIN (>89)
[2016-08-13 12:50] LABS: TOTAL BILIRUBIN ADULT 3.7 MG/DL (0.2-1.0)
[2016-08-13 12:51] LABS: ALKALINE PHOSPHATASE 219 U/L (45-117)
[2016-08-13 13:40] VITALS: BP 101/65; PULSE 74; RESP 17; O2SAT 98
== END 2016-08-13 14:22 | disposition home or self-care (01) ==
LOC: PHED 10:13
DX: K70.31 Alcoholic cirrhosis of liver with ascites (principal); E03.9 Hypothyroidism, unspecified; F10.21 Alcohol dependence, in remission; Z79.899 Other long term (current) drug therapy
CPT/HCPCS: 74176; 80053; 85025; 85610; 86850; 86900; 86901; 96360; 99284; J7030

== ENCOUNTER 2016-08-24 17:38 | Emergency (ER) | payer MEDICAID ==
[~2016-08-24] VITALS: Ht 162.6 cm; Wt 57.0 kg
[~2016-08-24 17:38] MED LIST changes: -TRAM50TA PO
[2016-08-24 17:43] VITALS: BP 93/66; PULSE 87; RESP 16; TEMP 98.8; O2SAT 97
--- NOTE | 2016-08-24 18:08 | PD ---
HPI Chief Complaint: Pain: Acute or Chronic Time Seen by Provider: 17:56 Travel History International Travel<30 days: No Contact w/Intl Traveler<30days: No Traveled to known affect area: No History of Present Illness HPI This is a 51-year-old female who has a history of alcoholic cirrhosis who presents to the emergency department with 1 day of pain in both of her legs, described as a sharp stabbing feeling in her knees, extending down her calf and upper mid thigh on the right leg, worse with movement and walking, improved with rest. Her reports she has trouble sitting down and standing. This is never happened before. She has no swelling and has had no trauma. She tried to take tramadol but that didn't help. She denies any numbness or weakness. PFSH Past Medical History Hx Anticoagulant Therapy: No Arthritis: No Asthma: No Autoimmune Disease: No Anxiety: No Depression: Yes Heart Rhythm Problems: No Cancer: No Cardiovascular Problems: No High Cholesterol: No Chemotherapy: No Chest Pain: No Congestive Heart Failure: No Cirrhosis: Yes COPD: No Cerebrovascular Accident: No Diabetes: No Diminished Hearing: No Endocrine: Yes Gastrointestinal Disorders: Yes (HX OF UPPER GI BLEED;ESOPHAGEAL VARICES ; BLEEDING ULCERS) GERD: Yes Genitourinary: No Headaches: No Hepatitis: Yes (ALCOHOLIC HEPATITIS) Hiatal Hernia: No Heparin Induced Thrombocytopen: No Hypertension: No Immune Disorder: No Implanted Vascular Access Dvce: No Kidney Stones: No Medical other: Yes (ESOPHAGEAL VARICES; LIVER CIRRHOSIS; THROMBOCYTOPENIA ;) Musculoskeletal: No Neurologic: Yes Psychiatric: Yes Reproductive: No Respiratory: No Immunizations Current: Yes Migraines: No Radiation Therapy: No Renal Failure: No Seizures: No Sickle Cell Disease: No Sleep Apnea: No Thyroid Disease: Yes (Hypothyroidism) Ulcer: Yes ?: Not LMP: MENOPAUSAL Menopausal: Yes Past Surgical History Abdominal Surgery: Yes (umbilical hernia repair , ESOPHAGEAL BANDING) AICD: No Body Medical Devices: NONE Cardiac Surgery: No Cholecystectomy: Yes (2006) Ear Surgery: No Endocrine Surgery: No Eye Surgery: Yes (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) Genitourinary Surgery: No Gynecologic Surgery: Yes (PT STATES AFTER OF DAUGHTER PLACENTA WAS PARITALLY RETAINED; ) Hysterectomy: No Insulin Pump: No Joint Replacement: Yes (RIGHT HIP REPLACEMENT) Neurologic Surgery: No Oral Surgery: Yes Pacemaker: No Thoracic Surgery: No Other Surgery: Yes (Cholecystectomy) Social History Alcohol Use: No (H/O ALCOHOLISM QUIT 3 YEARS AGO) Tobacco Use: No Substance Use: Yes Allergies-Medications (Allergen,Severity, Reaction): Coded Allergies: Codeine (Verified Allergy, Severe, VOMITING, 08/24/16) MILD REACTION- VOMITING Morphine (Verified Allergy, Severe, PT DENIES, 08/24/16) MILD REACTION Aspirin (Verified Adverse Reaction, Severe, Bleeding, 08/24/16) STOMACH "BLEEDS" PER PT ; SEVERE REACTION Nortriptyline (Verified Adverse Reaction, Severe, Hallucinations, 08/24/16) vomiting ; INTERMEDIATE REACTION Reported Meds & Prescriptions Reported Meds & Active Scripts Active Reported Pantoprazole (Pantoprazole Sodium) 40 Mg Tab 40 Mg PO DAILY Levothyroxine (Levothyroxine Sodium) 50 Mcg Tab 50 Mcg PO DAILY Spironolactone 50 Mg Tab 100 Mg PO DAILY Lasix (Furosemide) 20 Mg Tab 40 Mg PO DAILY Xifaxan (Rifaximin) 550 Mg Tab 550 Mg PO DAILY Review of Systems Except as stated in HPI: all other systems reviewed are Neg Physical Exam Narrative GENERAL: Chronically ill-appearing. SKIN: Warm and dry. HEAD: Atraumatic. Normocephalic. EYES: Pupils equal and round. No injection or drainage. ENT: Moist mucous membranes NECK: Trachea midline. CARDIOVASCULAR: Regular rate and rhythm. No murmur appreciated. 2+ bilateral DP pulses with normal capillary refill. RESPIRATORY: Clear to auscultation. Breath sounds equal bilaterally. GASTROINTESTINAL: Abdomen soft, non-tender, mildly distended with ascites. MUSCULOSKELETAL: No obvious deformities. No warmth or effusion at the knees or ankles. No swelling of the legs. No focal tenderness in the lumbar spine. NEUROLOGICAL: Awake and alert. No obvious cranial nerve deficits. 5 out of 5 strength in the bilateral lower extremities. PSYCHIATRIC: Appropriate mood and affect; insight and judgment normal. Data Data Last Documented VS Vital Signs Date Time Temp Pulse Resp B/P Pulse Ox O2 Delivery O2 Flow Rate FiO2 08/24/16 17:43 98.8 87 16 93/66 97 Orders Complete Blood Count With Diff (08/24/16 18:04) Comprehensive Metabolic Panel (08/24/16 18:04) ^ Insert Iv (08/24/16 18:04) Oxycodone (Roxicodone) (08/24/16 18:15) Ondansetron Odt (Zofran Odt) (08/24/16 19:00) Labs Laboratory Tests Test 08/24/16 18:38 White Blood Count 5.7 TH/MM3 Red Blood Count 3.73 MIL/MM3 Hemoglobin 12.1 GM/DL Hematocrit 36.0 % Mean Corpuscular Volume 96.6 FL Mean Corpuscular Hemoglobin 32.3 PG Mean Corpuscular Hemoglobin 33.4 % Concent Red Cell Distribution Width 16.1 % Platelet Count 105 TH/MM3 Mean Platelet Volume 7.0 FL Neutrophils (%) (Auto) 61.1 % Lymphocytes (%) (Auto) 18.4 % Monocytes (%) (Auto) 11.2 % Eosinophils (%) (Auto) 5.3 % Basophils (%) (Auto) 4.0 % Neutrophils # (Auto) 3.5 TH/MM3 Lymphocytes # (Auto) 1.1 TH/MM3 Monocytes # (Auto) 0.6 TH/MM3 Eosinophils # (Auto) 0.3 TH/MM3 Basophils # (Auto) 0.2 TH/MM3 CBC Comment DIFF FINAL Differential Comment MDM Medical Decision Making Medical Screen Exam Complete: Yes Emergency Medical Condition: Yes Differential Diagnosis Electrolyte abnormality, hemarthrosis, osteoarthritis, septic arthritis Narrative Course This is a 51-year-old female who has a history of cirrhosis who presents to the emergency department with pain in her knees and legs unlike pain she's had in the past. She denies any back pain, numbness or weakness. She has a normal neurovascular exam. I eyes physician for this patient would be an electrolyte abnormality causing her pain given she is on diuretics for her cirrhosis. Labs were obtained. She was given oxycodone and Zofran. Labs will be followed up by oncoming provider. Jacy Dhaliwal MD Aug 24, 2016 18:08
[2016-08-24 18:47] LABS: AUTOMATED NEUTROPHIL # 3.5 TH/MM3 (1.8-7.7); BASOPHIL # 0.2 TH/MM3 (0-0.2); EOSINOPHIL # 0.3 TH/MM3 (0-0.4); EOSINOPHIL % 5.3 % (0.0-4.0); HEMO FLAGS DIFF FINAL; LYMPH % 18.4 % (9.0-44.0); LYMPHOCYTE # 1.1 TH/MM3 (1.0-4.8); MEAN CELL VOLUME 96.6 FL (80.0-100.0); MEAN CORPUSCULAR HEMOGLOBIN 32.3 PG (27.0-34.0); MEAN CORPUSCULAR HGB CONC 33.4 % (32.0-36.0); MONO % 11.2 % (0.0-8.0); NEUT % 61.1 % (16.0-70.0); PLATELET COUNT 105 TH/MM3 (150-450); RED BLOOD COUNT 3.73 MIL/MM3 (4.00-5.30); RED CELL DISTRIBUTION WIDTH 16.1 % (11.6-17.2); WHITE BLOOD COUNT 5.7 TH/MM3 (4.0-11.0)
[2016-08-24] MEDS ORDERED: ONDANSETRON ODT 4 MG TAB PO ONE (19:00)
[2016-08-24 19:01] VITALS: BP 101/67; PULSE 88; RESP 16; O2SAT 99
[2016-08-24 19:12] LABS: CHLORIDE 95 MEQ/L (98-107); POTASSIUM 3.8 MEQ/L (3.5-5.1); SODIUM (NA) 130 MEQ/L (136-145)
[2016-08-24 19:15] LABS: ANION GAP 10 MEQ/L (5-15); BICARBONATE 24.7 MEQ/L (21.0-32.0)
[2016-08-24 19:16] LABS: BLOOD UREA NITROGEN 6 MG/DL (7-18)
[2016-08-24 19:18] LABS: ALT (GPT) 35 U/L (10-53)
[2016-08-24 19:19] LABS: AST (GOT) 72 U/L (15-37); GLOMERULAR FILTRATION RATE 90 ML/MIN (>89)
[2016-08-24 19:20] LABS: TOTAL BILIRUBIN ADULT 5.6 MG/DL (0.2-1.0)
[2016-08-24 19:21] LABS: ALKALINE PHOSPHATASE 202 U/L (45-117); CREATINE KINASE 177 U/L (26-192)
[2016-08-24] MEDS ORDERED: PROMETHAZINE INJ 25 MG/ML VIAL IM ONE ×2 (19:45→20:15)
--- NOTE | 2016-08-24 19:56 | PD ---
Physical Exam Time Seen by Provider: 19:[address] Dhaliwal but this patient with me to make a disposition. The patient has been here on a weekly basis, 4 times this month now. Most of her visits regarding pain associated with ascites but today's visit is pain regarding both knees and the left ankle. She said she was sent home on tramadol but tramadol doesn't work at all she states. She states the only thing that worked for her was Dilaudid. She was given Roxicodone in the emergency department and vomited. She is given both Zofran and Phenergan for her vomiting. She says the Roxicodone has not helped the patient's pain. Data Data Last Documented VS Vital Signs Date Time Temp Pulse Resp B/P Pulse Ox O2 Delivery O2 Flow Rate FiO2 08/24/16 20:07 87 16 114/67 99 Room Air 08/24/16 17:43 98.8 Orders Complete Blood Count With Diff (08/24/16 18:04) Comprehensive Metabolic Panel (08/24/16 18:04) ^ Insert Iv (08/24/16 18:04) Oxycodone (Roxicodone) (08/24/16 18:15) Ondansetron Odt (Zofran Odt) (08/24/16 19:00) Creatine Kinase (Cpk) (08/24/16 18:38) Promethazine Inj (Phenergan Inj) (08/24/16 19:45) Lipase (08/24/16 18:38) Hydromorphone Pf Inj (Dilaudid Pf Inj) (08/24/16 20:15) Promethazine Inj (Phenergan Inj) (08/24/16 20:15) Labs Laboratory Tests Test 08/24/16 18:38 White Blood Count 5.7 TH/MM3 Red Blood Count 3.73 MIL/MM3 Hemoglobin 12.1 GM/DL Hematocrit 36.0 % Mean Corpuscular Volume 96.6 FL Mean Corpuscular Hemoglobin 32.3 PG Mean Corpuscular Hemoglobin 33.4 % Concent Red Cell Distribution Width 16.1 % Platelet Count 105 TH/MM3 Mean Platelet Volume 7.0 FL Neutrophils (%) (Auto) 61.1 % Lymphocytes (%) (Auto) 18.4 % Monocytes (%) (Auto) 11.2 % Eosinophils (%) (Auto) 5.3 % Basophils (%) (Auto) 4.0 % Neutrophils # (Auto) 3.5 TH/MM3 Lymphocytes # (Auto) 1.1 TH/MM3 Monocytes # (Auto) 0.6 TH/MM3 Eosinophils # (Auto) 0.3 TH/MM3 Basophils # (Auto) 0.2 TH/MM3 CBC Comment DIFF FINAL Differential Comment Sodium Level 130 MEQ/L Potassium Level 3.8 MEQ/L Chloride Level 95 MEQ/L Carbon Dioxide Level 24.7 MEQ/L Anion Gap 10 MEQ/L Blood Urea Nitrogen 6 MG/DL Creatinine 0.69 MG/DL Estimat Glomerular Filtration 90 ML/MIN Rate Random Glucose 86 MG/DL Calcium Level 7.6 MG/DL Total Bilirubin 5.6 MG/DL Aspartate Amino Transf 72 U/L (AST/SGOT) Alanine Aminotransferase 35 U/L (ALT/SGPT) Alkaline Phosphatase 202 U/L Total Creatine Kinase 177 U/L Total Protein 7.6 GM/DL Albumin 2.2 GM/DL Lipase 89 U/L [facility] Medical Record Reviewed: Yes Supervised Visit with SHALA: Yes Interpretation(s) The complete metabolic profile shows a sodium of 1:30, calcium corrected the CBC is essentially normal. Of 7.6, total bilirubin of 5.6 with AST of 72 and alkaline phosphatase of 202 and albumin of 2.2. Differential Diagnosis Arthralgias associated with cirrhosis, joint space infectionhighly unlikely, drug seeking behaviorunlikely Narrative Course The patient appears to have cirrhosis associated polyarthralgias. The patient states she has significant pain and will be given Dilaudid 2 mg tablets #15. She needs to keep her appointment with Dr. Friedman next Tuesday as scheduled. Diagnosis Primary Impression: Alcoholic cirrhosis of liver Additional Impression: Large joint arthralgia of multiple sites Additional Instruction: Use of Dilaudid as sparingly as he can. You are very sensitive to narcotics and the Dilaudid may make you nauseated. The Phenergan is for nausea. Do not drink alcohol or drive on either of these medications. I know you are not going to drink alcohol. Follow-up with her media producer as scheduled Med/Other Pt SpecificInfo: Prescription(s) given Scripts Promethazine (Phenergan)25 Mg Tab25 Mg PO Q6H PRN (Nausea/Vomiting) #30 TAB Ref 0 Prov:Kendall Vargas MD 08/24/16 Hydromorphone (Dilaudid)2 Mg Tab2 Mg PO Q6H PRN (Pain Management) #15 TAB Ref 0 Prov:Kendall Vargas MD 08/24/16 Disposition: 01 DISCHARGE HOME Condition: Stable Kendall Vargas MD Aug 24, 2016 19:56
[2016-08-24 20:07] VITALS: BP 114/67; PULSE 87; RESP 16; O2SAT 99
[2016-08-24] MEDS ORDERED: HYDROmorphone HCL PF 1 MG/ML VIAL IVP ONE (20:15)
[2016-08-24] MEDS ORDERED: DILA2TAB2 PO (20:39)
[2016-08-24] MEDS ORDERED: PROM25TA5 PO (20:39)
[2016-08-24 21:31] VITALS: BP 112/72
== END 2016-08-24 21:34 | disposition home or self-care (01) ==
LOC: PHED 17:38
DX: K70.31 Alcoholic cirrhosis of liver with ascites (principal); K70.11 Alcoholic hepatitis with ascites; F10.21 Alcohol dependence, in remission
CPT/HCPCS: 80053; 82550; 83690; 85025; 96372; 96374; 99283; J1170; J2550

== ENCOUNTER 2016-11-19 13:40 | Inpatient (IN) | payer MEDICAID ==
[2016-11-19] VITALS (9 sets, daily range): BP systolic 100–115; BP diastolic 55–67; PULSE 89–107; RESP 16–20; TEMP 97.4–97.9; O2SAT 98–100
[~2016-11-19] VITALS: Ht 152.4 cm; Wt 60.8 kg
[~2016-11-19 13:40] MED LIST changes: +DILA2TAB2 PO; +PROM25TA5 PO
--- NOTE | 2016-11-19 13:54 | PD ---
HPI Chief Complaint: Altered Mental Status Time Seen by Provider: 13:42 Travel History International Travel<30 days: No Contact w/Intl Traveler<30days: No Traveled to known affect area: No History of Present Illness HPI The patient is a 51-year-old female who presents emergency department for altered mental status. The patient's poor historian and is unable to provide any significant history, she repetitively says "I'm okay Calvin ". The patient will say yes to a complete review of systems, however, does have an altered mental status. The patient does have a history of cirrhosis with previous liver failure and esophageal varices with previous admissions. The patient does not provide any further information. The history is obtained from the electronic medical record. PFSH Past Medical History Hx Anticoagulant Therapy: No Arthritis: No Asthma: No Autoimmune Disease: No Anxiety: No Depression: Yes Heart Rhythm Problems: No Cancer: No Cardiovascular Problems: No High Cholesterol: No Chemotherapy: No Chest Pain: No Congestive Heart Failure: No Cirrhosis: Yes COPD: No Cerebrovascular Accident: No Diabetes: No Diminished Hearing: No Endocrine: Yes Gastrointestinal Disorders: Yes (HX OF UPPER GI BLEED;ESOPHAGEAL VARICES ; BLEEDING ULCERS) GERD: Yes Genitourinary: No Headaches: No Hepatitis: Yes (ALCOHOLIC HEPATITIS) Hiatal Hernia: No Heparin Induced Thrombocytopen: No Hypertension: No Immune Disorder: No Implanted Vascular Access Dvce: No Kidney Stones: No Musculoskeletal: No Neurologic: Yes Psychiatric: Yes Reproductive: No Respiratory: No Immunizations Current: Yes Migraines: No Radiation Therapy: No Renal Failure: No Seizures: No Sickle Cell Disease: No Sleep Apnea: No Thyroid Disease: Yes (Hypothyroidism) Ulcer: Yes Menopausal: Yes Past Surgical History Abdominal Surgery: Yes (umbilical hernia repair , ESOPHAGEAL BANDING) AICD: No Body Medical Devices: NONE Cardiac Surgery: No Cholecystectomy: Yes (2006) Ear Surgery: No Endocrine Surgery: No Eye Surgery: Yes (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) Genitourinary Surgery: No Gynecologic Surgery: Yes (PT STATES AFTER OF DAUGHTER PLACENTA WAS PARITALLY RETAINED; ) Hysterectomy: No Insulin Pump: No Joint Replacement: Yes (RIGHT HIP REPLACEMENT) Neurologic Surgery: No Oral Surgery: Yes Pacemaker: No Thoracic Surgery: No Other Surgery: Yes (Cholecystectomy) Social History Alcohol Use: No (H/O ALCOHOLISM QUIT 3 YEARS AGO) Tobacco Use: No Substance Use: Yes Allergies-Medications (Allergen,Severity, Reaction): Coded Allergies: Codeine (Verified Allergy, Severe, VOMITING, 08/24/16) MILD REACTION- VOMITING Morphine (Verified Allergy, Severe, PT DENIES, 08/24/16) MILD REACTION Aspirin (Verified Adverse Reaction, Severe, Bleeding, 08/24/16) STOMACH "BLEEDS" PER PT ; SEVERE REACTION Nortriptyline (Verified Adverse Reaction, Severe, Hallucinations, 08/24/16) vomiting ; INTERMEDIATE REACTION Reported Meds & Prescriptions Reported Meds & Active Scripts Active Phenergan (Promethazine HCl) 25 Mg Tab 25 Mg PO Q6H PRN Dilaudid (Hydromorphone HCl) 2 Mg Tab 2 Mg PO Q6H PRN Reported Pantoprazole (Pantoprazole Sodium) 40 Mg Tab 40 Mg PO DAILY Levothyroxine (Levothyroxine Sodium) 50 Mcg Tab 50 Mcg PO DAILY Spironolactone 50 Mg Tab 100 Mg PO DAILY Lasix (Furosemide) 20 Mg Tab 40 Mg PO DAILY Xifaxan (Rifaximin) 550 Mg Tab 550 Mg PO DAILY Review of Systems ROS Limitations: Altered Mental Status Except as stated in HPI: all other systems reviewed are Neg Neurologic: Positive: Change in Mentation Physical Exam Exam Limitations: Altered Mental Status Narrative GENERAL: Awake, confused 51-year-old female who appears older than her stated age but is in no acute respiratory distress. SKIN: Focused skin assessment warm/dry. Telangiectasias noted over the chest wall. HEAD: Atraumatic. Normocephalic. EYES: Pupils equal and round. Pupils are 5 mm bilateral and reactive. ENT: No nasal bleeding or discharge. Mucous membranes pink and moist. NECK: Trachea midline. No JVD. CARDIOVASCULAR: Regular rate and rhythm. No murmur appreciated. Heart rate in the 90s. RESPIRATORY: No accessory muscle use. Clear to auscultation. Breath sounds equal bilaterally. GASTROINTESTINAL: Abdomen soft, enlarged liver border. Minimal caput medusa. MUSCULOSKELETAL: No obvious deformities. No clubbing. No cyanosis. No edema. Thin extremities with mild atrophy. NEUROLOGICAL: Awake, confused, but is all 4 extremities, but does not follow commands or answer questions. PSYCHIATRIC: Confused. Data Data Last Documented VS Vital Signs Date Time Temp Pulse Resp B/P Pulse Ox O2 Delivery O2 Flow Rate FiO2 11/19/16 14:58 93 18 100/55 100 11/19/16 14:26 97.4 Orders Ammonia (11/19/16 13:47) Complete Blood Count With Diff (11/19/16 13:47) Comprehensive Metabolic Panel (11/19/16 13:47) Creatine Kinase (Cpk) (11/19/16 13:47) Prothrombin Time / Inr (Pt) (11/19/16 13:47) Act Partial Throm Time (Ptt) (11/19/16 13:47) Troponin I (11/19/16 13:47) Thyroid Stimulating Hormone (11/19/16 13:47) Urinalysis - C+S If Indicated (11/19/16 13:47) Lactic Acid Sepsis Protocol (11/19/16 13:47) Blood Culture (11/19/16 13:47) Chest, Single Ap (11/19/16 13:47) Ct Brain W/O Iv Contrast(Rout) (11/19/16 13:47) Blood Glucose (11/19/16 13:47) Ecg Monitoring (11/19/16 13:47) Iv Access Insert/Monitor (11/19/16 13:47) Oximetry (11/19/16 13:47) Sodium Chloride 0.9% Flush (Ns Flush) (11/19/16 14:00) Drug Screen, Random Urine (11/19/16 13:54) Alcohol (Ethanol) (11/19/16 13:47) Lactulose Liq (Lactulose Liq) (11/19/16 14:30) Urine Culture (11/19/16 14:22) Lactulose Liq (Lactulose Liq) (11/19/16 15:30) Admit Order (Ed Use Only) (11/19/16 15:28) Labs Laboratory Tests Test 11/19/16 11/19/16 13:58 14:22 White Blood Count 6.0 TH/MM3 Red Blood Count 3.37 MIL/MM3 Hemoglobin 11.7 GM/DL Hematocrit 34.6 % Mean Corpuscular Volume 102.8 FL Mean Corpuscular Hemoglobin 34.7 PG Mean Corpuscular Hemoglobin 33.8 % Concent Red Cell Distribution Width 15.8 % Platelet Count 121 TH/MM3 Mean Platelet Volume 6.9 FL Neutrophils (%) (Auto) 68.7 % Lymphocytes (%) (Auto) 12.7 % Monocytes (%) (Auto) 14.1 % Eosinophils (%) (Auto) 2.6 % Basophils (%) (Auto) 1.9 % Neutrophils # (Auto) 4.0 TH/MM3 Lymphocytes # (Auto) 0.8 TH/MM3 Monocytes # (Auto) 0.9 TH/MM3 Eosinophils # (Auto) 0.2 TH/MM3 Basophils # (Auto) 0.1 TH/MM3 CBC Comment DIFF FINAL Differential Comment Prothrombin Time 16.1 SEC Prothromb Time International 1.4 RATIO Ratio Activated Partial 31.4 SEC Thromboplast Time Sodium Level 129 MEQ/L Potassium Level 4.1 MEQ/L Chloride Level 97 MEQ/L Carbon Dioxide Level 22.9 MEQ/L Anion Gap 9 MEQ/L Blood Urea Nitrogen 9 MG/DL Creatinine 0.97 MG/DL Estimat Glomerular Filtration 61 ML/MIN Rate Random Glucose 127 MG/DL Lactic Acid Level 3.0 mmol/L Calcium Level 7.7 MG/DL Total Bilirubin 4.6 MG/DL Aspartate Amino Transf 77 U/L (AST/SGOT) Alanine Aminotransferase 42 U/L (ALT/SGPT) Alkaline Phosphatase 209 U/L Ammonia 223 MCMOL/L Total Creatine Kinase 190 U/L Troponin I LESS THAN 0.02 NG/ML Total Protein 7.1 GM/DL Albumin 1.9 GM/DL Thyroid Stimulating Hormone 1.700 uIU/ML 3rd Gen Ethyl Alcohol Level LESS THAN 3 MG/DL Urine Collection Type CATH Urine Color YELLOW Urine Turbidity CLEAR Urine pH 8.0 Urine Specific [place] 1.024 Urine Protein 30 mg/dL Urine Glucose (UA) NEG mg/dL Urine Ketones TRACE mg/dL Urine Occult Blood NEG Urine Nitrite NEG Urine Bilirubin SMALL Urine Leukocyte Esterase NEG Urine WBC 0-2 /hpf Urine Squamous Epithelial > 8 /hpf Cells Urine Bacteria MOD /hpf Microscopic Urinalysis Comment CATH-CULTURE IND Urine Collection Time 14:22 Urine Opiates Screen NEG Urine Barbiturates Screen NEG Urine Amphetamines Screen NEG Urine Benzodiazepines Screen NEG Urine Cocaine Screen NEG Urine Cannabinoids Screen NEG MDM Medical Decision Making Medical Screen Exam Complete: Yes Emergency Medical Condition: Yes Medical Record Reviewed: Yes Interpretation(s) EKG reveals normal sinus rhythm with a rate in 93. Low QRS voltage noted. Nonspecific T-wave changes. Laboratory Tests Test 11/19/16 11/19/16 13:58 14:22 White Blood Count 6.0 TH/MM3 Red Blood Count 3.37 MIL/MM3 Hemoglobin 11.7 GM/DL Hematocrit 34.6 % Mean Corpuscular Volume 102.8 FL Mean Corpuscular Hemoglobin 34.7 PG Mean Corpuscular Hemoglobin 33.8 % Concent Red Cell Distribution Width 15.8 % Platelet Count 121 TH/MM3 Mean Platelet Volume 6.9 FL Neutrophils (%) (Auto) 68.7 % Lymphocytes (%) (Auto) 12.7 % Monocytes (%) (Auto) 14.1 % Eosinophils (%) (Auto) 2.6 % Basophils (%) (Auto) 1.9 % Neutrophils # (Auto) 4.0 TH/MM3 Lymphocytes # (Auto) 0.8 TH/MM3 Monocytes # (Auto) 0.9 TH/MM3 Eosinophils # (Auto) 0.2 TH/MM3 Basophils # (Auto) 0.1 TH/MM3 CBC Comment DIFF FINAL Differential Comment Prothrombin Time 16.1 SEC Prothromb Time International 1.4 RATIO Ratio Activated Partial 31.4 SEC Thromboplast Time Sodium Level 129 MEQ/L Potassium Level 4.1 MEQ/L Chloride Level 97 MEQ/L Carbon Dioxide Level 22.9 MEQ/L Anion Gap 9 MEQ/L Blood Urea Nitrogen 9 MG/DL Creatinine 0.97 MG/DL Estimat Glomerular Filtration 61 ML/MIN Rate Random Glucose 127 MG/DL Lactic Acid Level 3.0 mmol/L Calcium Level 7.7 MG/DL Total Bilirubin 4.6 MG/DL Aspartate Amino Transf 77 U/L (AST/SGOT) Alanine Aminotransferase 42 U/L (ALT/SGPT) Alkaline Phosphatase 209 U/L Ammonia 223 MCMOL/L Total Creatine Kinase 190 U/L Troponin I LESS THAN 0.02 NG/ML Total Protein 7.1 GM/DL Albumin 1.9 GM/DL Thyroid Stimulating Hormone 1.700 uIU/ML 3rd Gen Ethyl Alcohol Level LESS THAN 3 MG/DL Urine Collection Type CATH Urine Color YELLOW Urine Turbidity CLEAR Urine pH 8.0 Urine Specific [place] 1.024 Urine Protein 30 mg/dL Urine Glucose (UA) NEG mg/dL Urine Ketones TRACE mg/dL Urine Occult Blood NEG Urine Nitrite NEG Urine Bilirubin SMALL Urine Leukocyte Esterase NEG Urine WBC 0-2 /hpf Urine Squamous Epithelial > 8 /hpf Cells Urine Bacteria MOD /hpf Microscopic Urinalysis Comment CATH-CULTURE IND Urine Collection Time 14:22 Urine Opiates Screen NEG Urine Barbiturates Screen NEG Urine Amphetamines Screen NEG Urine Benzodiazepines Screen NEG Urine Cocaine Screen NEG Urine Cannabinoids Screen NEG Last Impressions Chest X-Ray 11/19/16 1347 Signed Impressions: Service Date/Time: Saturday, November 19, 2016 14:09 - CONCLUSION: No acute disease. Chandrakant Srinivasan MD CT of the brain reveals no acute intracranial disease Differential Diagnosis Differential diagnosis includes elevated ammonia level, encephalopathy, encephalitis, meningitis, hyponatremia, subdural hemorrhage, intracranial hemorrhage, alcohol intoxication, sepsis. Narrative Course IV was established, labs are drawn and sent, and the patient was placed on cardiac telemetry monitoring and continuous pulse oximetry monitoring. EKG was ordered and interpreted. CT of the brain and chest x-ray were obtained. Bedside blood glucose was 118. Rectal temperature was obtained. Ammonia level was sent to lab. CT the brain is negative. Chest x-rays unremarkable. Patient 's sodium is 129, however, ammonia levels 223. Electrolytes orally was ordered , however, the patient refused to drink the lactulose secondary to her altered mental status. Therefore, rectal lactulose enema was ordered. The patient's service desk associate is Dr. Burnett and who recently increased her lactulose dose , however, the states the patient did not take her lactulose yesterday. She is also on another medication for elevated ammonia levels, however, the cannot recall the name. The patient will be admitted for elevated ammonia level. Physician Communication Physician Communication The on-call medical service was paged for admission. I discussed the patient with Dr. Hernandez who agrees with admission. Diagnosis Primary Impression: Hyperammonemia Additional Impression: Altered mental status Qualified Code: R41.82 - Altered mental status, unspecified altered mental status type Admitting Information Admitting Physician Requests: Admit Condition: Stable Shekhar Laureano MD November 19, 2016 13:54
[2016-11-19] MEDS ORDERED: SODIUM CHLORIDE 0.9% FLUSH 5 ML FLUSH IV FLUSH PRN (14:00)
[2016-11-19 14:10] LABS: BASOPHIL # 0.1 TH/MM3 (0-0.2); BASOPHIL % 1.9 % (0.0-2.0); EOSINOPHIL # 0.2 TH/MM3 (0-0.4); EOSINOPHIL % 2.6 % (0.0-4.0); HEMATOCRIT 34.6 % (35.0-46.0); LYMPH % 12.7 % (9.0-44.0); LYMPHOCYTE # 0.8 TH/MM3 (1.0-4.8); MEAN CELL VOLUME 102.8 FL (80.0-100.0); MEAN CORPUSCULAR HEMOGLOBIN 34.7 PG (27.0-34.0); MEAN CORPUSCULAR HGB CONC 33.8 % (32.0-36.0); MONO % 14.1 % (0.0-8.0); NEUT % 68.7 % (16.0-70.0); PLATELET COUNT 121 TH/MM3 (150-450); RED BLOOD COUNT 3.37 MIL/MM3 (4.00-5.30); RED CELL DISTRIBUTION WIDTH 15.8 % (11.6-17.2)
[2016-11-19 14:11] LABS: HEMO FLAGS DIFF FINAL
[2016-11-19 14:15] LABS: CHLORIDE 97 MEQ/L (98-107); POTASSIUM 4.1 MEQ/L (3.5-5.1); SODIUM (NA) 129 MEQ/L (136-145)
[2016-11-19 14:18] LABS: ANION GAP 9 MEQ/L (5-15); BICARBONATE 22.9 MEQ/L (21.0-32.0)
[2016-11-19 14:19] LABS: BLOOD UREA NITROGEN 9 MG/DL (7-18)
[2016-11-19 14:21] LABS: ALT (GPT) 42 U/L (10-53); AST (GOT) 77 U/L (15-37)
[2016-11-19 14:22] LABS: APTT (PATIENT) 31.4 SEC (24.3-30.1); GLOMERULAR FILTRATION RATE 61 ML/MIN (>89); INTERNATIONAL NORMALIZED RATIO 1.4 RATIO; PROTHROMBIN TIME - PATIENT 16.1 SEC (9.8-11.6)
[2016-11-19 14:23] LABS: TOTAL BILIRUBIN ADULT 4.6 MG/DL (0.2-1.0)
[2016-11-19 14:24] LABS: ALKALINE PHOSPHATASE 209 U/L (45-117); CREATINE KINASE 190 U/L (26-192)
[2016-11-19] MEDS ORDERED: LACTULOSE SYRUP 20 GM/30 ML CUP PO ONE (14:30)
--- NOTE | 2016-11-19 14:40 | RADHPO ---
EXAM DATE/TIME: 11/19/2016 14:09 [facility] COMPARISON: CHEST SINGLE AP, August 07, 2016, 9:25. INDICATIONS : Patient passed out today and is short of breath. MEDICAL HISTORY : Gastroesophageal reflux disease. Ascites. SURGICAL HISTORY : Cholecystectomy. ENCOUNTER: Initial ACUITY: 1 day PAIN SCORE: 0/10 LOCATION: Bilateral chest FINDINGS: A single view of the chest demonstrates the lungs to be symmetrically aerated without evidence of mas s, infiltrate or effusion. The cardiomediastinal contours are unremarkable. Osseous structures are intact. CONCLUSION: No acute disease. Chandrakant Srinivasan MD on November 19, 2016 at 14:38 Board Certified Radiologist. This report was verified electronically.
[2016-11-19 14:52] LABS: BLOOD, URINE NEG (NEG); GLUCOSE,URINE NEG (NEG); KETONE, URINE TRACE mg/dL (NEG); NITRITE,URINE NEG (NEG)
[2016-11-19 15:00] LABS: BARBITURATES, URINE NEG (NEG)
[2016-11-19 15:01] LABS: AMPHETAMINE, URINE NEG (NEG)
[2016-11-19 15:09] LABS: COCAINE, URINE NEG (NEG)
[2016-11-19 15:10] LABS: METHOD OF COLLECTION CATH; URINE COLOR YELLOW (YELLW/STRAW)
[2016-11-19 15:11] LABS: BACTERIA, URINE MOD /hpf; COMMENT (UR) CATH-CULTURE IND; CULTURE IF INDICATED CATH CULTURE IND; SQUAMOUS EPITHELIAL CELL URINE > 8 /hpf (0-5); WBC, URINE 0-2 /hpf (0-5)
--- NOTE | 2016-11-19 15:19 | RADHPO ---
EXAM DATE/TIME: 11/19/2016 14:38 [facility] COMPARISON: CT BRAIN W/O CONTRAST, March 21, 2013, 9:09. INDICATIONS : Altered mental stratus changes, cirrhosis. RADIATION DOSE: 58.83 CTDIvol (mGy) MEDICAL HISTORY : Gastroesophageal reflux disease. thrombocytopenia, gi bleed, former alcohol abuse SURGICAL HISTORY : Inguinal hernia repair. left eye issues, loss of vision ENCOUNTER: Initial ACUITY: 1 day PAIN SCALE: Non-responsive LOCATION: cranial confusion TECHNIQUE: Multiple contiguous axial images were obtained of the head. Using automated exposure control and adj ustment of the mA and/or kV according to patient size, radiation dose was kept as low as reasonably a chievable to obtain optimal diagnostic quality images. FINDINGS: CEREBRUM: Cortical atrophy. The ventricles are normal for age. No evidence of midline shift, mass lesion, hemo rrhage or acute infarction. No extra-axial fluid collections are seen. POSTERIOR FOSSA: The cerebellum and brainstem are intact. The 4th ventricle is midline. The cerebellopontine angle i s unremarkable. EXTRACRANIAL: The visualized portion of the orbits is intact. SKULL: The calvaria is intact. No evidence of skull fracture. CONCLUSION: No acute intracranial disease. Chandrakant Srinivasan MD on November 19, 2016 at 15:16 Board Certified Radiologist. This report was verified electronically.
[2016-11-19 16:04] LABS: LACTIC ACID GHOST NOT REPORTABLE
[2016-11-19] MEDS ORDERED: SODIUM CHLORIDE 0.9% FLUSH 10 ML FLUSH IV FLUSH PRN (16:15)
[2016-11-19] MEDS ORDERED: ONDANSETRON HCL 4 MG/2 ML VIAL IVP PRN (16:15)
[2016-11-19] MEDS ORDERED: LACTULOSE LIQ 300 ML in WATER STERILE FOR IRR BTL 700 ML RECTAL ONE (16:30)
[2016-11-19] MEDS ORDERED: PANTOPRAZOLE SODIUM 40 MG VIAL IV PUSH SCH (17:00)
--- NOTE | 2016-11-19 17:04 | HHI.HP ---
[facility] Service [facility] Primary Care Physician David Vo MD Admission Diagnosis hyperammonia, altered mental status Diagnoses: Chief Complaint: Altered mental status Travel History International Travel<30 Days: No Contact w/Intl Traveler <30 Da: No Traveled to Known Affected Are: No History of Present Illness The patient is a 51-year-old female with a past medical history of alcohol cirrhosis who is presenting to the hospital with altered mental status. The patient is unable to participate in her history that she only says "yes" over and over. She appears uncomfortable and tries to climb out of bed frequently. She did seem to indicate abdominal pain with palpation in that area. She also seemed to indicate some photophobia as bright lights seem to irritate her. Per the patient's the patient has been having difficulty with taking her pills. She has been vomiting after ingesting medications. He does not believe she has been taking her lactulose. She follows with gastroenterology and was recommended to go to the hospital a few weeks ago by her sap bpc developer for low sodium levels but the patient did not want to. The patient's states that the patient does want everything done. He says that she has tried hospice in the past but had a bad experience at that time. He stated that she suffered anoxic brain injury about 4 years ago while at hospice. The patient had a sitter outside of her room for safety purposes. Review of Systems ROS Limitations: Clinical Condition, Altered Mental Status, Uncooperative, Poor Historian Except as stated in HPI: all other systems reviewed are Neg Past Family Social History Past Medical History Alcohol cirrhosis History of alcohol abuse Hyperammonemia History of esophageal varices Hypothyroidism Chronic thrombocytopenia Depression History of anorexia with bulimia Past Surgical History Hernia repair Cholecystectomy Allergies: Coded Allergies: Codeine (Verified Allergy, Severe, VOMITING, 08/24/16) MILD REACTION- VOMITING Morphine (Verified Allergy, Severe, PT DENIES, 08/24/16) MILD REACTION Aspirin (Verified Adverse Reaction, Severe, Bleeding, 08/24/16) STOMACH "BLEEDS" PER PT ; SEVERE REACTION Nortriptyline (Verified Adverse Reaction, Severe, Hallucinations, 08/24/16) vomiting ; INTERMEDIATE REACTION Active Ordered Medications Current Medications Medications (Trade) Dose Ordered Sig/Ángela Route Start Time Stop Time Status Last Admin (Xifaxan) 550 mg BID PO 11/19/16 21:00 (NS Flush) 2 ml UNSCH PRN IV FLUSH 11/19/16 16:15 (NS Flush) 2 ml BID IV FLUSH 11/19/16 21:00 (Zofran Inj) 4 mg Q6H PRN IVP 11/19/16 16:15 (Lactulose Liq) 30 ml QID PO 11/19/16 18:00 (Protonix Inj) 40 mg Q24H IV PUSH 11/19/16 17:00 (Synthroid Inj) 25 mcg DAILY@06 IV PUSH 11/19/16 17:00 Family History Unable to obtain at this time Social History Unable to obtain at this time Physical Exam Vital Signs Vital Signs Date Time Temp Pulse Resp B/P Pulse Ox O2 Delivery O2 Flow Rate FiO2 11/19/16 14:58 93 18 100/55 100 11/19/16 14:31 100 11/19/16 14:26 97.4 91 18 107/62 100 11/19/16 13:45 100 20 100/55 100 Physical Exam GENERAL: Awake and restless. SKIN: Focused skin assessment warm/dry. Telangiectasias noted over the chest wall. HEAD: Atraumatic. Normocephalic. EYES: Pupils equal and round. Pupils are 5 mm bilateral and reactive. ENT: No nasal bleeding or discharge. Mucous membranes pink and moist. NECK: Trachea midline. No JVD. CARDIOVASCULAR: Tachycardic. Grade 2 systolic murmur appreciated. RESPIRATORY: No accessory muscle use. Clear to auscultation. Breath sounds equal bilaterally. GASTROINTESTINAL: Abdomen soft, enlarged liver border. Minimal caput medusa. MUSCULOSKELETAL: No obvious deformities. No clubbing. No cyanosis. No edema. Thin extremities with mild atrophy. NEUROLOGICAL: Awake, confused, but moves all 4 extremities, but does not follow commands or answer questions. PSYCHIATRIC: Confused. Laboratory Laboratory Tests Test 11/19/16 11/19/16 13:58 14:22 White Blood Count 6.0 Red Blood Count 3.37 Hemoglobin 11.7 Hematocrit 34.6 Mean Corpuscular Volume 102.8 Mean Corpuscular Hemoglobin 34.7 Mean Corpuscular Hemoglobin 33.8 Concent Red Cell Distribution Width 15.8 Platelet Count 121 Mean Platelet Volume 6.9 Neutrophils (%) (Auto) 68.7 Lymphocytes (%) (Auto) 12.7 Monocytes (%) (Auto) 14.1 Eosinophils (%) (Auto) 2.6 Basophils (%) (Auto) 1.9 Neutrophils # (Auto) 4.0 Lymphocytes # (Auto) 0.8 Monocytes # (Auto) 0.9 Eosinophils # (Auto) 0.2 Basophils # (Auto) 0.1 CBC Comment DIFF FINAL Differential Comment Prothrombin Time 16.1 Prothromb Time International 1.4 Ratio Activated Partial 31.4 Thromboplast Time Sodium Level 129 Potassium Level 4.1 Chloride Level 97 Carbon Dioxide Level 22.9 Anion Gap 9 Blood Urea Nitrogen 9 Creatinine 0.97 Estimat Glomerular Filtration 61 Rate Random Glucose 127 Lactic Acid Level 3.0 Calcium Level 7.7 Total Bilirubin 4.6 Aspartate Amino Transf 77 (AST/SGOT) Alanine Aminotransferase 42 (ALT/SGPT) Alkaline Phosphatase 209 Ammonia 223 Total Creatine Kinase 190 Troponin I LESS THAN 0.02 Total Protein 7.1 Albumin 1.9 Thyroid Stimulating Hormone 1.700 3rd Gen Ethyl Alcohol Level LESS THAN 3 Urine Collection Type CATH Urine Color YELLOW Urine Turbidity CLEAR Urine pH 8.0 Urine Specific [place] 1.024 Urine Protein 30 Urine Glucose (UA) NEG Urine Ketones TRACE Urine Occult Blood NEG Urine Nitrite NEG Urine Bilirubin SMALL Urine Leukocyte Esterase NEG Urine WBC 0-2 Urine Squamous Epithelial > 8 Cells Urine Bacteria MOD Microscopic Urinalysis Comment CATH-CULTURE IND Urine Collection Time 14:22 Urine Opiates Screen NEG Urine Barbiturates Screen NEG Urine Amphetamines Screen NEG Urine Benzodiazepines Screen NEG Urine Cocaine Screen NEG Urine Cannabinoids Screen NEG Date/Time Procedure Status Source Growth 11/19/16 14:22 Urine Culture Received Urine Clean Catch Pending 11/19/16 14:06 Aerobic Blood Culture Received Blood Peripheral Pending 11/19/16 14:06 Anaerobic Blood Culture Received Blood Peripheral Pending Result Diagram: 11/19/16 1358 11/19/16 1358 Imaging Last Impressions Head CT 11/19/167 Signed Impressions: Service Date/Time: Saturday, November 19, 2016 14:38 - CONCLUSION: No acute intracranial disease. Chandrakant Srinivasan MD Chest X-Ray 11/19/16 1347 Signed Impressions: Service Date/Time: Saturday, November 19, 2016 14:09 - CONCLUSION: No acute disease. Chandrakant Srinivasan MD Assessment and Plan Assessment and Plan Acute metabolic encephalopathy The patient is altered. She is found to have an ammonia level of 223. She has not been able to take her home medications secondary to nausea and vomiting. - Lactulose enema ordered. - NG tube if patient unable to take home meds including lactulose and rifaximin. - GI consult requested. - Monitor LFTs. - PT/ OT/ ST. - Neuro checks. - blood and urine cultures pending. - keep the pt NPO. 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 MELD score calculated at 22. - hold off on diuretics as lactic acid level was 3 and pt can use intravascular volume. Will follow levels. - continue lactulose and rifaximin. NGT if needed. May need to start tube feeds eventually. - GI eval pending. - consider palliative consult. - IV PPI. - follow blood glucose levels. - consider paracentesis to rule out SBP. Pt is currently afebrile and without leukocytosis. Will defer to GI. Hyponatremia S/t hypervolemia. - monitor while pt is NPO. Hold off on IVFs. - resume diuretics when appropriate. Thrombocytopenia S/t liver disease and likely splenic sequestration. - follow CBC. Hypotension Likely s/t liver disease. - hold off on diuretics. Hypothyroidism The pt is on levothyroxine. - switch to IV levothyroxine as the pt cannot safely swallow pills at this time. PPx: SCDs Code Status Full Discussed Condition With Pt, pt's , Dr. BagleyLaureano Physician Certification 2 Midnight Certification Type: Admission for Inpatient Services Order for Inpatient Services The services are ordered in accordance with Medicare regulations or non- Medicare payer requirements, as applicable. In the case of services not specified as inpatient-only, they are appropriately provided as inpatient services in accordance with the 2-midnight benchmark. Estimated LOS (days): 2 days is the estimated time the patient will need to remain in the hospital, assuming treatment plan goals are met and no additional complications. Post-Hospital Plan: Not yet determined Calvin Hernandez DO November 19, 2016 17:04
[2016-11-19] MEDS ORDERED: FURO40TA PO (17:08)
[2016-11-19] MEDS: LEVOTHYROXINE SODIUM 100 MCG VIAL IV PUSH SCH (19:00)
[2016-11-19] MEDS: LACTULOSE SYRUP 20 GM/30 ML CUP PO SCH ×2 (20:06→22:44)
[2016-11-19] MEDS: RIFAXIMIN 550 MG TAB PO SCH (21:16)
[2016-11-19] MEDS: SODIUM CHLORIDE 0.9% FLUSH 10 ML FLUSH IV FLUSH SCH (21:16)
[2016-11-20] VITALS (8 sets, daily range): BP systolic 104–116; BP diastolic 64–72; PULSE 80–103; RESP 16–22; TEMP 96.9–99.1; O2SAT 98–100
[2016-11-20] MEDS ORDERED: DEXTROSE 5% IN WATE 1000ML INJ 1,000 ML IV SCH (07:00)
[2016-11-20] MEDS: LEVOTHYROXINE SODIUM 100 MCG VIAL IV PUSH SCH (07:18)
[2016-11-20 07:33] LABS: CHLORIDE 101 MEQ/L (98-107); POTASSIUM 3.7 MEQ/L (3.5-5.1); SODIUM (NA) 133 MEQ/L (136-145)
[2016-11-20 07:36] LABS: AUTOMATED NEUTROPHIL # 2.6 TH/MM3 (1.8-7.7); BASOPHIL # 0.1 TH/MM3 (0-0.2); BASOPHIL % 1.5 % (0.0-2.0); EOSINOPHIL # 0.3 TH/MM3 (0-0.4); HEMATOCRIT 32.4 % (35.0-46.0); HEMO FLAGS DIFF FINAL; LYMPH % 17.3 % (9.0-44.0); LYMPHOCYTE # 0.8 TH/MM3 (1.0-4.8); MEAN CELL VOLUME 102.2 FL (80.0-100.0); MEAN CORPUSCULAR HEMOGLOBIN 33.8 PG (27.0-34.0); MEAN CORPUSCULAR HGB CONC 33.1 % (32.0-36.0); MONO % 17.5 % (0.0-8.0); NEUT % 57.7 % (16.0-70.0); PLATELET COUNT 111 TH/MM3 (150-450); RED BLOOD COUNT 3.17 MIL/MM3 (4.00-5.30); RED CELL DISTRIBUTION WIDTH 15.6 % (11.6-17.2); WHITE BLOOD COUNT 4.6 TH/MM3 (4.0-11.0)
[2016-11-20 07:45] LABS: ANION GAP 10 MEQ/L (5-15); BLOOD UREA NITROGEN 10 MG/DL (7-18)
[2016-11-20 07:46] LABS: GLOMERULAR FILTRATION RATE 83 ML/MIN (>89)
[2016-11-20 07:47] LABS: AST (GOT) 68 U/L (15-37)
[2016-11-20 07:49] LABS: ALKALINE PHOSPHATASE 135 U/L (45-117); ALT (GPT) 34 U/L (10-53); INTERNATIONAL NORMALIZED RATIO 1.5 RATIO; PROTHROMBIN TIME - PATIENT 17.1 SEC (9.8-11.6)
[2016-11-20] MEDS ORDERED: LEVOTHYROXINE SODIUM 50 MCG TAB PO SCH (09:00)
[2016-11-20] MEDS: RIFAXIMIN 550 MG TAB PO SCH ×2 (09:01→21:23)
[2016-11-20] MEDS: LACTULOSE SYRUP 20 GM/30 ML CUP PO SCH ×4 (09:01→21:23)
[2016-11-20] MEDS: SODIUM CHLORIDE 0.9% FLUSH 10 ML FLUSH IV FLUSH SCH ×2 (09:02→21:23)
[2016-11-20] MEDS: cefTRIAXone INJ 1,000 MG in SODIUM CHLORIDE 0.9% INJ 100 ML IV SCH (09:02)
--- NOTE | 2016-11-20 09:50 | HHI.PR ---
Subjective Remarks The patient was resting in bed. She was awake and alert and able to answer all questions. She stated that she has not taken her lactulose in 3 years because it causes diarrhea. She says she takes her rifaximin once a day instead of twice a day. She says she does have abdominal pain from the ascites. Discussed with gastroenterology. Objective Vitals Vital Signs Date Time Temp Pulse Resp B/P Pulse Ox O2 Delivery O2 Flow Rate FiO2 11/20/16 08:00 97.1 94 17 108/69 100 11/20/16 04:00 98.2 80 16 115/70 100 11/20/16 00:53 98.0 86 18 116/72 99 11/19/16 21:26 97.9 89 16 115/67 98 11/19/16 20:00 92 11/19/16 19:07 99 11/19/16 17:29 107 16 100/60 100 11/19/16 16:30 100 21 11/19/16 14:58 93 18 100/55 100 11/19/16 14:31 100 11/19/16 14:26 97.4 91 18 107/62 100 11/19/16 13:45 100 20 100/55 100 Result Diagram: 11/20/1617 11/20/16616 Imaging Last Impressions Head CT 11/19/161346 Signed Impressions: Service Date/Time: Saturday, November 19, 2016 14:38 - CONCLUSION: No acute intracranial disease. Chandrakant Srinivasan MD Chest X-Ray 11/19/161346 Signed Impressions: Service Date/Time: Saturday, November 19, 2016 14:09 - CONCLUSION: No acute disease. Chandrakant Srinivasan MD Objective Remarks GENERAL: No apparent distress. SKIN: Focused skin assessment warm/dry. Telangiectasias noted over the chest wall. HEAD: Atraumatic. Normocephalic. EYES: Pupils equal and round. Pupils are 5 mm bilateral and reactive. ENT: No nasal bleeding or discharge. Mucous membranes pink and moist. NECK: Trachea midline. No JVD. CARDIOVASCULAR: Tachycardic. Grade 2 systolic murmur appreciated. RESPIRATORY: No accessory muscle use. Clear to auscultation. Breath sounds equal bilaterally. GASTROINTESTINAL: Abdomen soft, enlarged liver border. Minimal caput medusa. MUSCULOSKELETAL: No obvious deformities. No clubbing. No cyanosis. No edema. Thin extremities with mild atrophy. NEUROLOGICAL: Awake and alert, moves all 4 extremities. PSYCHIATRIC: Mood and affect appropriate. Medications and IVs Current Medications Medications (Trade) Dose Ordered Sig/Ángela Route Start Time Stop Time Status Last Admin (Xifaxan) 550 mg BID PO 11/19/16 21:00 11/20/16 09:01 (NS Flush) 2 ml UNSCH PRN IV FLUSH 11/19/16 16:15 (NS Flush) 2 ml BID IV FLUSH 11/19/16 21:00 11/20/16 09:02 (Zofran Inj) 4 mg Q6H PRN IVP 11/19/16 16:15 (Lactulose Liq) 30 ml QID PO 11/19/16 18:00 11/20/16 09:01 (Protonix Inj) 40 mg Q24H IV PUSH 11/19/16 17:00 11/19/16 20:06 Levothyroxine Sodium 25 mcg 25 mcg DAILY@06 IV PUSH 11/19/16 17:00 11/20/16 07:18 Dextrose 1,000 ml @ 42 mls/hr [id number] IV 11/20/16 07:00 11/20/16 07:18 (Rocephin Inj/NS Inj) 100 ml @ 200 mls/hr Q24H IV 11/20/16 09:00 11/20/16 09:02 A/P Assessment and Plan Acute metabolic encephalopathy The patient is altered. She is found to have an ammonia level of 223. She has not been able to take her home medications secondary to nausea and vomiting. S/ p NGT. The pt is now alert and oriented. GI consult appreciated. - Lactulose QID. - GI following. - Monitor LFTs. - PT/ OT/ ST. - start diet. - Neuro checks. - blood and urine cultures pending. - repeat ammonia level. 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 MELD score calculated at 22. - resume diuretics. - continue lactulose and rifaximin. - PPI. - follow blood glucose levels. - paracentesis ordered to rule out SBP. Hyponatremia S/t hypervolemia. - monitor while pt is NPO. Hold off on IVFs. - resume diuretics when appropriate. Thrombocytopenia/ Anemia S/t liver disease, splenic sequestration. - follow CBC. Hypotension Likely s/t liver disease. Improved. - resume diuretics. Hypothyroidism The pt is on levothyroxine. - continue home meds. PPx: SCDs Discharge Planning Awaiting clinical improvement. Calvin Hernandez DO November 20, 2016 09:50
[2016-11-20] MEDS: PANTOPRAZOLE SOD 40 MG DELAYED RELEASE TAB PO SCH (10:47)
[2016-11-20] MEDS: FUROSEMIDE 40 MG TAB PO SCH (10:47)
--- NOTE | 2016-11-20 11:22 | MB ---
cc: ANTONIO DREW MD DATE OF CONSULTATION: 11/20/2016. REASON FOR CONSULTATION: Hepatic encephalopathy. HISTORY OF PRESENT ILLNESS: Ms. Santamaria is a 51-year-old female patient with a known case of alcohol-induced liver disease who was hospitalized in the past and evaluated for possible liver transplantation and was taken off the list after improvement in her condition. She is known to our service from previous admission. She came to the emergency room this time complaining of decreased level of consciousness and as reported by her . The patient was not taking her medicine and was throwing up and having abdominal pain. The patient was seen in the emergency room and initial evaluation showed she had evidence of hepatic encephalopathy as manifested by increase in ammonia level and low sodium level. The patient was admitted for further evaluation, and over the last 24-hours, the patient improved significantly. At the current time, she is able to communicate, although she cannot remember the reason why she was hospitalized. The patient denies any abdominal pain, nausea, vomiting. Denies any fevers, chills. Denies any change in urine color or stool color. No other symptoms. The patient is known to Dr. Burnett from the office with frequent visits for her liver cirrhosis and possible liver transplantation. She was found to have recently a sodium of 129 and was advised to be hospitalized, but the patient refused to do so. Also, the patient was seen at [facility] for possible liver transplantation and she was placed on the list. She was taken off the list after her improvement. REVIEW OF SYSTEMS All fourteen element review of systems negative other than the ones mentioned in the history of present illness. PAST MEDICAL HISTORY: 1. The patient is known to have alcohol-induced liver cirrhosis. 2. . 3. History of alcohol abuse. The patient denies recent alcohol use over the last 2 years. 4. 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 5. History of esophageal varices. 6. History of chronic thrombocytopenia. 7. Depression. 8. History of anorexia with bulimia. 9. Hypothyroidism. PAST SURGICAL HISTORY: 1. Hernia repair. 2. Cholecystectomy. MEDICATIONS: 1. Xifaxan 550 milligrams p.o. twice a day. 2. Synthroid 25 micrograms p.o. daily. 3. Protonix 40 milligrams p.o. daily. 4. Lactulose 50 mL p.o. four times a day. ALLERGIES: 1. CODEINE. 2. MORPHINE. 3. ASPIRIN. 4. NORTRIPTYLINE. FAMILY HISTORY: Noncontributory. PSYCHOSOCIAL HISTORY: The patient lives with her . Limited psychosocial history at the current time secondary to her encephalopathy. PHYSICAL EXAMINATION: GENERAL: On examination, the patient was found to be comfortable in bed. At the current time, not in distress or in pain. Jaundice and slight pallor. HEAD AND NECK: Atraumatic and normocephalic. Pupils equal and react to light bilaterally. Yellow-tinged skin. The neck is supple. No lymphadenopathy. No thyromegaly. CHEST: Multiple spider angiomas on the anterior chest wall. No chest wall deformity. Clear to auscultation bilaterally. No crackles or wheezes. HEART: Regular rate and rhythm. No murmurs. ABDOMEN: Abdomen soft with no tenderness. Distended with a moderate amount of ascites. EXTREMITIES: Normal pulses. +1 edema bilateral. NEUROLOGICAL EXAMINATION: Cranial nerves II through XII are grossly intact. No asterixis at this time. No motor or sensory deficit. SKIN: No rashes. LABORATORY DATA: Sodium 153 up from 129 on admission. Lactic acid 1.9 down from 3 on admission. AST of 68, ALT 34, alkaline phosphatase 135. Albumin 1.7, total bilirubin 4.6. INR 1.6. IMAGING STUDIES: CT head is negative for acute injury. ASSESSMENT AND PLAN: A 51-year-old female patient who presented with: 1. 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 2. Recurrent ascites. The patient is a due for abdominal paracentesis. Will need to schedule that during this hospitalization to rule occult spontaneous bacterial peritonitis as that can contribute to her encephalopathy. 3. Hyponatremia, improved with proper hydration. 5. Thrombocytopenia secondary to portal hypertension. 6. Esophageal varices. 7. History of alcohol abuse. The patient denies using alcohol over the last two years. 8. Depression. 9. Hypothyroidism. PLAN: Agree with the plan as above. 1. Will switch to lactulose orally today since she is more awake and resume Xifaxan as previously prescribed. 2. Continue correction of hyponatremia as ordered 3. Schedule abdominal paracentesis for diagnostic and therapeutic purposes. 4. Continue supportive care. Further recommendations to follow. Thank you for the consult. Antonio HERNÁNDEZ/MARCO ANTONIO /8:55 AM /11:06 AM SONIA
--- NOTE | 2016-11-20 14:35 | PD.RAD ---
Post US Procedure Prog Note Pre Procedure Diagnosis: (1) Ascites Post Procedure Diagnosis: (1) Ascites Procedure Date: November 20, 2016 Supervising Radiologist: David Olvera Proceduralist/Assist: Amaya Hayes Anesthesia: Local Plan of Activity Patient to Unit: Nursing Unit Patient Condition: Good See PACS Report for procedural detail/treatment Drainage Procedure Procedure 1 Imaging Guidance: Ultrasound Side: Left Procedure Type: Paracentesis Colombian: 6 Drainage: Suction Fluid Description: Clear, Yellow David Olvera MD November 20, 2016 14:35
--- NOTE | 2016-11-20 15:39 | RADHPO ---
EXAM DATE/TIME: 11/20/2016 11:02 [facility] COMPARISON: No previous studies available for comparison. EXTERNAL COMPARISON: [facility], Ultrasound abdomen, Jul 01 2016 INDICATIONS : Ascites. MEDICAL HISTORY : Cirrhosis. Gastroesophageal reflux disease. Trombocytopenia. GI bleed. ETOH abuse. SURGICAL HISTORY : Inguinal hernia. Left eye problems. ENCOUNTER: Subsequent ACUITY: > 1 yr PAIN SCORE: 5/10 LOCATION: Left lower quadrant FLUID: Total volume of 3900 cc of clear, red fluid was removed. Fluid was sent to lab for ordered studies. Post procedure scanning reveals no hematoma or other complication. TECHNIQUE: 1. Ultrasound guidance for abdominal paracentesis. 2. Paracentesis. The risks, benefits, and alternatives to ultrasound guided paracentesis were explained to the patient in detail including the risk of bleeding and infection. Written and verbal informed consent was obt ained. With the patient on the ultrasound table, ultrasound imaging was used to select the most appropriate approach for paracentesis. Overlying skin was prepped and draped in the usual sterile fashion and wi th a local anesthetic, a dermatotomy was made with an 11 blade scalpel. A 6 Swazi [id number] ca theter was introduced into the peritoneal cavity and fluid was collected. The patient tolerated the procedure well and left the ultrasound suite in stable condition. CONCLUSION: Uncomplicated ultrasound guided paracentesis. David Olvera MD on November 20, 2016 at 15:37 Board Certified Radiologist. This report was verified electronically.
--- NOTE | 2016-11-20 16:49 | EKG ---
Date Performed: 11/19/2016 Time Performed: 13:38:06 PTAGE: 51 years EKG: Sinus rhythm Poor R wave progression - probable normal variant Anterior T wave changes are nonspecific Low QRS vo ltages in precordial leads Borderline ECG Since PREVIOUS TRACING 03/21/2013, QRS voltage generally decreased and the ST-T changes are ne w. PREVIOUS TRACIN03/21/2013 08.42 DOCTOR: Ulises Guevara Interpretating Date/Time 11/20/2016 16:48:57
[2016-11-20 16:56] LABS: PERITONEAL LYMPHS 11 %; PERITONEAL MESOTHELIAL 58 %; PERITONEAL MONOS 4 %; PERITONEAL POLYS(SEGS) 27 %; PERITONEAL WBC 121 /MM3 (0-10)
[2016-11-20] MEDS: SPIRONOLACTONE 50 MG TAB PO SCH (17:39)
[2016-11-20] MEDS: HYDROmorphone HCL PF 1 MG/ML VIAL IV PUSH PRN (22:11)
[2016-11-21 00:48] VITALS: BP 115/72; PULSE 92; RESP 18; TEMP 98.8; O2SAT 98
[2016-11-21] MEDS: HYDROmorphone HCL PF 1 MG/ML VIAL IV PUSH PRN ×2 (02:10→06:13)
[2016-11-21 04:00] VITALS: BP 104/61; PULSE 80; RESP 16; TEMP 98; O2SAT 100
[2016-11-21] MEDS ORDERED: LEVOTHYROXINE SODIUM 50 MCG TAB PO SCH (06:00)
[2016-11-21 07:35] LABS: HEMATOCRIT 33.3 % (35.0-46.0); MEAN CELL VOLUME 103.4 FL (80.0-100.0); MEAN CORPUSCULAR HEMOGLOBIN 34.8 PG (27.0-34.0); MEAN CORPUSCULAR HGB CONC 33.7 % (32.0-36.0); PLATELET COUNT 120 TH/MM3 (150-450); RED BLOOD COUNT 3.22 MIL/MM3 (4.00-5.30); REVIEW FLAG FINAL; WHITE BLOOD COUNT 5.6 TH/MM3 (4.0-11.0)
[2016-11-21 07:37] LABS: POTASSIUM 3.7 MEQ/L (3.5-5.1)
[2016-11-21 07:41] LABS: BICARBONATE 22.7 MEQ/L (21.0-32.0); MAGNESIUM 1.8 MG/DL (1.5-2.5)
[2016-11-21 08:00] VITALS: BP 117/89; PULSE 102; RESP 20; TEMP 97.3; O2SAT 96
[2016-11-21] MEDS: RIFAXIMIN 550 MG TAB PO SCH (09:10)
[2016-11-21] MEDS: FUROSEMIDE 40 MG TAB PO SCH (09:11)
[2016-11-21] MEDS: SPIRONOLACTONE 50 MG TAB PO SCH (09:11)
[2016-11-21] MEDS: PANTOPRAZOLE SOD 40 MG DELAYED RELEASE TAB PO SCH (09:11)
[2016-11-21] MEDS: LACTULOSE SYRUP 20 GM/30 ML CUP PO SCH (09:13)
[2016-11-21] MEDS: cefTRIAXone INJ 1,000 MG in SODIUM CHLORIDE 0.9% INJ 100 ML IV SCH (09:14)
[2016-11-21] MEDS: SODIUM CHLORIDE 0.9% FLUSH 10 ML FLUSH IV FLUSH SCH (09:14)
--- NOTE | 2016-11-21 09:54 | HHI.GIFU ---
Subjective Remarks Awake and Alert, asymptomatic Objective Vitals I&O Vital Signs Date Time Temp Pulse Resp B/P Pulse Ox O2 Delivery O2 Flow Rate FiO2 11/21/16 08:00 97.3 102 20 117/89 96 11/21/16 04:00 98.0 80 16 104/61 100 11/21/16 00:48 98.8 92 18 115/72 98 11/20/16 21:25 99.1 99 22 106/64 99 11/20/16 19:55 103 11/20/16 15:45 97.2 94 18 108/72 98 11/20/16 12:00 96.9 100 18 104/70 99 11/20/16 10:00 99 21 I/O 11/20/16 11/20/16 11/20/16 11/21/16 11/21/16 11/21/16 07:00 15:00 23:00 07:00 15:00 23:00 Intake Total 0 ml Balance 0 ml Intake Oral 0 ml # Voids 3 3 4 # Bowel Movements 1 3 2 Laboratory Laboratory Tests Test 11/20/16 11/20/16 11/21/16 09:54 14:20 06:50 Lactate Dehydrogenase 258 Total Protein 6.4 Peritoneal Fluid WBC 121 Peritoneal Fluid RBC 3350 Peritoneal Fluid Neutrophils 27 Peritoneal Fluid Lymphocytes 11 Peritoneal Fluid Monocytes 4 Peritoneal Fluid Mesothelial 58 Cells White Blood Count 5.6 Red Blood Count 3.22 Hemoglobin 11.2 Hematocrit 33.3 Mean Corpuscular Volume 103.4 Mean Corpuscular Hemoglobin 34.8 Mean Corpuscular Hemoglobin 33.7 Concent Red Cell Distribution Width 15.0 Platelet Count 120 Mean Platelet Volume 6.7 Sodium Level 133 Potassium Level 3.7 Chloride Level 102 Carbon Dioxide Level 22.7 Anion Gap 8 Blood Urea Nitrogen 13 Creatinine 0.81 Estimat Glomerular Filtration 75 Rate Random Glucose 116 Calcium Level 8.1 Magnesium Level 1.8 Date/Time Procedure Status Source Growth 11/20/16 14:20 Gram Stain - Final Resulted Fluid Peritoneal Fluid 11/20/16 14:20 Body Fluid Culture Resulted Fluid Peritoneal Fluid Pending 11/19/16 14:22 Urine Culture - Final Complete Urine Clean Catch 10-50,000 CFU/ML MIXED MANDY... 11/19/16 14:06 Aerobic Blood Culture - Preliminary Resulted Blood Peripheral NO GROWTH IN 1 DAY 11/19/16 14:06 Anaerobic Blood Culture - Preliminary Resulted Blood Peripheral NO GROWTH IN 1 DAY Physical Exam HEENT: Pupils round and reactive to light; normocephalic; atraumatic; no jaundice. Throat is clear. NECK: Neck is supple, no JVD, no lymphadenopathy. CHEST: Chest is clear to auscultation and percussion. CARDIAC: Regular rate and rhythm with no murmur gallop or rubs. ABDOMEN: Soft, nondistended, nontender; no hepatosplenomegaly; bowel sounds are present in all four quadrants. EXTREMITIES: No clubbing, cyanosis, or edema. SKIN: Normal; no rash; no jaundice. 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 Assessment and Plan Plan 1. 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 2. Recurrent ascites. S/P paracentesis of 3.9 liters, negative for SBP 3. Hyponatremia, improved with proper hydration. 4. Thrombocytopenia secondary to portal hypertension. 5 . Esophageal varices. 6 . History of alcohol abuse. The patient denies using alcohol over the last two years. 7 . Depression. 8. Hypothyroidism. PLAN: - Continue lactulose orally and Xifaxan. - Supportive care. - Stable from GI point of view for discharge and follow up at [facility]. Antonio Wilson MD November 21, 2016 09:54
[2016-11-21] MEDS ORDERED: XIFA550T4 PO (11:03)
[2016-11-21] MEDS ORDERED: ALDA50TA2 PO (11:03)
[2016-11-21] MEDS ORDERED: OXYC-392 PO (11:03)
[2016-11-21] MEDS ORDERED: LACT10SO PO (11:03)
[2016-11-21] MEDS ORDERED: LEVO50TA4 PO (11:03)
--- NOTE | 2016-11-21 11:05 | HHI.DCPOC ---
Discharge Care Plan Diagnosis: (1) Ascites (2) Altered mental status (3) Hyperammonemia (4) Alcoholic cirrhosis of liver Goals to Promote Your Health * To prevent worsening of your condition and complications * To maintain your health at the optimal level Directions to Meet Your Goals Take your medications as prescribed Follow your dietary instruction Follow activity as directed Keep your appointments as scheduled Take your immunizations and boosters as scheduled If your symptoms worsen call your PCP, if no PCP go to Urgent Care Center or Emergency Room Smoking is Dangerous to Your Health. Avoid second hand smoke Call the 24-hour hour crisis hotline for domestic abuse at Calvin Hernandez DO November 21, 2016 11:05
--- NOTE | 2016-11-21 11:10 | HHI.PR ---
Subjective Remarks The patient was feeling great this morning. She was tolerating a diet. She did have pain at the site of the paracentesis. She is requesting pain medication for that. She has been having bowel movements. She has been ambulating. Discussed with nursing. Objective Vitals Vital Signs Date Time Temp Pulse Resp B/P Pulse Ox O2 Delivery O2 Flow Rate FiO2 11/21/16 08:00 97.3 102 20 117/89 96 11/21/16 04:00 98.0 80 16 104/61 100 11/21/16 00:48 98.8 92 18 115/72 98 11/20/16 21:25 99.1 99 22 106/64 99 11/20/16 19:55 103 11/20/16 15:45 97.2 94 18 108/72 98 11/20/16 12:00 96.9 100 18 104/70 99 I/O 11/20/16 11/20/16 11/20/16 11/21/16 11/21/16 11/21/16 07:00 15:00 23:00 07:00 15:00 23:00 Intake Total 0 ml Balance 0 ml Intake Oral 0 ml # Voids 3 3 4 # Bowel Movements 1 3 2 Result Diagram: 11/21/16 0650 11/21/16 0650 Imaging Last Impressions Cyst Biopsy Asp-Paracentesis US 11/20/16 0000 Signed Impressions: Service Date/Time: Sunday, November 20, 2016 11:02 - CONCLUSION: Uncomplicated ultrasound guided paracentesis. David Olvera MD Head CT 11/19/16 1347 Signed Impressions: Service Date/Time: Saturday, November 19, 2016 14:38 - CONCLUSION: No acute intracranial disease. Chandrakant Srinivasan MD Chest X-Ray 11/19/16 9809 Signed Impressions: Service Date/Time: Saturday, November 19, 2016 14:09 - CONCLUSION: No acute disease. Chandrakant Srinivasan MD Objective Remarks GENERAL: No apparent distress. SKIN: Focused skin assessment warm/dry. HEAD: Atraumatic. Normocephalic. EYES: Pupils equal and round. Pupils are 5 mm bilateral and reactive. ENT: No nasal bleeding or discharge. Mucous membranes pink and moist. NECK: Trachea midline. No JVD. Enlarged thyroid. CARDIOVASCULAR: Tachycardic. Grade 2 systolic murmur appreciated. RESPIRATORY: No accessory muscle use. Clear to auscultation. Breath sounds equal bilaterally. GASTROINTESTINAL: Abdomen soft, enlarged liver border. Tender to palpation at paracentesis sites. MUSCULOSKELETAL: No obvious deformities. No clubbing. No cyanosis. No edema. Thin extremities with mild atrophy. NEUROLOGICAL: Awake and alert, moves all 4 extremities. PSYCHIATRIC: Mood and affect appropriate. Procedures Paracentesis 11/20/16 Medications and IVs Current Medications Medications (Trade) Dose Ordered Sig/Ángela Route Start Time Stop Time Status Last Admin (Xifaxan) 550 mg BID PO 11/19/16 21:00 11/21/16 09:10 (NS Flush) 2 ml UNSCH PRN IV FLUSH 11/19/16 16:15 (NS Flush) 2 ml BID IV FLUSH 11/19/16 21:00 11/21/16 09:14 (Zofran Inj) 4 mg Q6H PRN IVP 11/19/16 16:15 11/21/16 06:12 Lactulose 30 ml 30 ml QID PO 11/19/16 18:00 11/21/16 09:13 (Rocephin Inj/NS Inj) 100 ml @ 200 mls/hr Q24H IV 11/20/16 09:00 11/21/16 09:14 (Lasix) 40 mg DAILY PO 11/20/16 10:00 11/21/16 09:11 (Aldactone) 50 mg BID@09,18 PO 11/20/16 18:00 11/21/16 09:11 (Synthroid) 50 mcg DAILY@0600 PO 11/21/16 06:00 11/21/16 06:12 (Protonix) 40 mg DAILY PO 11/20/16 10:00 11/21/16 09:11 (Roxicodone) 5 mg Q6H PRN PO 11/20/16 22:00 11/21/16 09:13 (Dilaudid Pf Inj) 0.2 mg Q4H PRN IV PUSH 11/20/16 22:00 11/21/16 06:13 A/P Assessment and Plan Acute metabolic encephalopathy The patient is altered. She is found to have an ammonia level of 223. She has not been able to take her home medications secondary to nausea and vomiting. S/ p NGT. The pt is now alert and oriented. GI consult appreciated. Ammonia level is down to 33. S/p paracentesis 11/21, no SBP. - Lactulose, titrate to 3-4 bowel movements daily. - GI follow up. - Monitor LFTs. - PT/ OT/ ST. - diet as tolerated. - Neuro checks. - peritoneal, blood and urine cultures pending. NGTD. 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 MELD score calculated at 22. S/p paracentesis. - resume diuretics. - continue lactulose and rifaximin. - PPI. - follow blood glucose levels. - outpt GI follow-up. Hyponatremia S/t hypervolemia. Sodium improved to 133. - resume diuretics. Thrombocytopenia/ Anemia S/t liver disease, splenic sequestration. - follow CBC. Hypotension Likely s/t liver disease. Improved. - resumed diuretics. Hypothyroidism The pt is on levothyroxine. She has an enlarged thyroid on exam. - continue home meds. PPx: SCDs Discharge Planning Discharge home. Discharge time greater than 30 minutes. Calvin Hernandez DO November 21, 2016 11:10
== END 2016-11-21 12:07 | disposition home or self-care (01) | DRG 71 ==
LOC: PHED 13:40 → PHEDA 15:29 → PH3B 18:14
PROVIDERS: ADMIT Hospitalist; ATTEND Hospitalist
PROC: 0W9G30Z Drainage of Peritoneal Cavity with Drainage Device, Percutaneous Approach (ICD-10-PCS; principal; 2016-11-20)
DX: G93.41 Metabolic encephalopathy (principal); E87.1 Hypo-osmolality and hyponatremia; D69.59 Other secondary thrombocytopenia; K76.6 Portal hypertension; I85.00 Esophageal varices without bleeding; E72.4 Disorders of ornithine metabolism; I95.9 Hypotension, unspecified; G93.1 Anoxic brain damage, not elsewhere classified; K70.31 Alcoholic cirrhosis of liver with ascites; E87.70 Fluid overload, unspecified; K72.90 Hepatic failure, unspecified without coma; R62.7 Adult failure to thrive; E03.9 Hypothyroidism, unspecified; F10.20 Alcohol dependence, uncomplicated; R63.0 Anorexia; F32.9 Major depressive disorder, single episode, unspecified; D64.9 Anemia, unspecified; K21.9 Gastro-esophageal reflux disease without esophagitis; Z86.59 Personal history of other mental and behavioral disorders; Z86.73 Personal history of transient ischemic attack (TIA), and cerebral infarction without residual deficits
CPT/HCPCS: 49083; 70450; 71010; 80048; 80053; 80307; 81001; 82042; 82140; 82550; 82945; 82948; 83605; 83615; 83690; 83735; 84155; 84157; 84443; 84484; 85025; 85027; 85610; 85730; 87040; 87070; 87086; 87205; 89051; 93005; C1729; C9113; J0696; J1170; J2405; J7070

== ENCOUNTER 2016-11-26 21:46 | Emergency (ER) | payer MEDICAID ==
[~2016-11-26] VITALS: Ht 162.6 cm; Wt 56.6 kg
[~2016-11-26 21:46] MED LIST changes: +ALDA50TA2 PO; -DILA2TAB2 PO; -FURO1TAB62 PO; +FURO40TA PO; +LACT10SO PO; +OXYC-392 PO; -PANT40TA3 PO; -PROM25TA5 PO; -SPIR50TA PO
[2016-11-26 21:51] VITALS: BP 106/63; PULSE 89; RESP 18; TEMP 98.7; O2SAT 99
--- NOTE | 2016-11-26 22:24 | PD ---
HPI Chief Complaint: Abdominal Pain Time Seen by Provider: 22:09 Travel History International Travel<30 days: No Contact w/Intl Traveler<30days: No Traveled to known affect area: No History of Present Illness HPI She does take Rifaximin twice daily to lower her ammonia level. She also takes Aldactone and furosemide and oxycodone. The patient is a 51-year-old female with a history of alcoholic cirrhosis who complains of bilateral lower abdominal pain. She had 4 L removed on Tuesday, [address] Mclaughlin said there probably 6 L (she denies any fever or vomiting but does have nausea. She does not smoke. She has not drank alcohol in 4 years. PFSH Past Medical History Hx Anticoagulant Therapy: No Arthritis: No Asthma: No Autoimmune Disease: No Anxiety: No Depression: Yes Heart Rhythm Problems: No Cancer: No Cardiovascular Problems: No High Cholesterol: No Chemotherapy: No Chest Pain: No Congestive Heart Failure: No Cirrhosis: Yes COPD: No Cerebrovascular Accident: No Diabetes: No Diminished Hearing: No Endocrine: Yes Gastrointestinal Disorders: Yes (HX OF UPPER GI BLEED;ESOPHAGEAL VARICES ; BLEEDING ULCERS) GERD: No Genitourinary: No Headaches: No Hepatitis: Yes (ALCOHOLIC HEPATITIS) Hiatal Hernia: Yes Heparin Induced Thrombocytopen: No Hypertension: No Immune Disorder: No Implanted Vascular Access Dvce: No Kidney Stones: No Medical other: Yes (ESOPHAGEAL VARICES; LIVER CIRRHOSIS; THROMBOCYTOPENIA ;) Musculoskeletal: No Neurologic: No Psychiatric: Yes Reproductive: No Respiratory: No Immunizations Current: Yes Migraines: No Radiation Therapy: No Renal Failure: No Seizures: No Sickle Cell Disease: No Sleep Apnea: No Thyroid Disease: Yes (Hypothyroidism) Ulcer: No Tetanus Vaccination: > 5 Years Influenza Vaccination: Yes ?: Not Menopausal: Yes Past Surgical History Abdominal Surgery: Yes (lewis briseno) AICD: No Body Medical Devices: NONE Cardiac Surgery: No Cholecystectomy: Yes (2006) Ear Surgery: No Endocrine Surgery: No Eye Surgery: No Genitourinary Surgery: No Gynecologic Surgery: No Hysterectomy: No Insulin Pump: No Joint Replacement: Yes (RIGHT HIP REPLACEMENT) Neurologic Surgery: No Oral Surgery: No Pacemaker: No Thoracic Surgery: No Other Surgery: Yes (Cholecystectomy) Social History Alcohol Use: No (H/O ALCOHOLISM QUIT 3 YEARS AGO) Tobacco Use: No Substance Use: Yes Allergies-Medications (Allergen,Severity, Reaction): Coded Allergies: Codeine (Verified Allergy, Severe, VOMITING, 11/26/16) MILD REACTION- VOMITING Morphine (Verified Allergy, Severe, PT DENIES, 11/26/16) MILD REACTION Aspirin (Verified Adverse Reaction, Severe, Bleeding, 11/26/16) STOMACH "BLEEDS" PER PT ; SEVERE REACTION Nortriptyline (Verified Adverse Reaction, Severe, Hallucinations, 11/26/16) vomiting ; INTERMEDIATE REACTION Reported Meds & Prescriptions Reported Meds & Active Scripts Active Oxycodone (Oxycodone HCl) 5 Mg Tab 5 Mg PO Q6H PRN Aldactone (Spironolactone) 50 Mg Tab 50 Mg PO BID@, Xifaxan (Rifaximin) 550 Mg Tab 550 Mg PO BID Lactulose Liq (Lactulose) 10 Gm/15 Ml Soln 30 Ml PO TID PRN Titrate to 3-4 bowel movements daily Levothyroxine (Levothyroxine Sodium) 50 Mcg Tab 125 Mcg PO DAILY Reported Furosemide 40 Mg Tab 40 Mg PO DAILY Review of Systems Except as stated in HPI: all other systems reviewed are Neg Physical Exam Narrative GENERAL: The patient is alert, oriented 3 in slight apparent distress with her bilateral abdominal discomfort. Her vital signs are normal. SKIN: Focused skin assessment warm/dry. HEAD: Atraumatic. Normocephalic. EYES: Pupils equal and round. No scleral icterus. No injection or drainage. ENT: No nasal bleeding or discharge. Mucous membranes pink and moist. NECK: Trachea midline. No JVD. CARDIOVASCULAR: Regular rate and rhythm. No murmur appreciated. RESPIRATORY: No accessory muscle use. Clear to auscultation. Breath sounds equal bilaterally. GASTROINTESTINAL: Abdomen soft, tender in the bilateral lower quadrants to direct palpation, moderately distended from ascites. Hepatic and splenic margins not palpable. No guarding or rebound is present. MUSCULOSKELETAL: No obvious deformities. No clubbing. No cyanosis. No edema. NEUROLOGICAL: Awake and alert. No obvious cranial nerve deficits. Motor grossly within normal limits. Normal speech. PSYCHIATRIC: Appropriate mood and affect; insight and judgment normal. Data Data Last Documented VS Vital Signs Date Time Temp Pulse Resp B/P Pulse Ox O2 Delivery O2 Flow Rate FiO2 11/26/16 21:51 98.7 89 18 106/63 99 Orders Complete Blood Count With Diff (6/2/17 22:16) Comprehensive Metabolic Panel (11/26/16 22:16) Ammonia (11/26/16 22:16) Ct Abd/Pel W/O Iv Contrast (11/26/16 22:16) Labs Laboratory Tests Test 11/26/16 22:50 White Blood Count 7.3 TH/MM3 Red Blood Count 3.05 MIL/MM3 Hemoglobin 10.6 GM/DL Hematocrit 31.4 % Mean Corpuscular Volume 102.8 FL Mean Corpuscular Hemoglobin 34.7 PG Mean Corpuscular Hemoglobin 33.8 % Concent Red Cell Distribution Width 14.6 % Platelet Count 141 TH/MM3 Mean Platelet Volume 7.1 FL Neutrophils (%) (Auto) 61.2 % Lymphocytes (%) (Auto) 13.7 % Monocytes (%) (Auto) 17.6 % Eosinophils (%) (Auto) 3.7 % Basophils (%) (Auto) 3.8 % Neutrophils # (Auto) 4.4 TH/MM3 Lymphocytes # (Auto) 1.0 TH/MM3 Monocytes # (Auto) 1.3 TH/MM3 Eosinophils # (Auto) 0.3 TH/MM3 Basophils # (Auto) 0.3 TH/MM3 CBC Comment DIFF FINAL Differential Comment Sodium Level 128 MEQ/L Potassium Level 4.7 MEQ/L Chloride Level 95 MEQ/L Carbon Dioxide Level 21.8 MEQ/L Anion Gap 11 MEQ/L Blood Urea Nitrogen 13 MG/DL Creatinine 0.87 MG/DL Estimat Glomerular Filtration 69 ML/MIN Rate Random Glucose 111 MG/DL Calcium Level 8.1 MG/DL Total Bilirubin 2.6 MG/DL Aspartate Amino Transf 72 U/L (AST/SGOT) Alanine Aminotransferase 39 U/L (ALT/SGPT) Alkaline Phosphatase 199 U/L Ammonia 102 MCMOL/L Total Protein 6.5 GM/DL Albumin 1.7 GM/DL [facility] Medical Decision Making Medical Screen Exam Complete: Yes Emergency Medical Condition: Yes Medical Record Reviewed: Yes Interpretation(s) The CT of the abdomen/pelvis without IV contrast shows cirrhosis, splenomegaly with signs of hypertension and moderate ascites. The left hepatic lobe has a cystic mass which is getting larger since July 2016. The CBC shows a hemoglobin of 10.6, hematocrit of 31.4, MCV of 103 and platelet count of 141, 000. It is not significantly different than one done on the of last month. The sodium is 128, glucose 111, calcium 8.1, total bilirubin 2.6, AST of 72 and alkaline phosphatase of 199 with ammonia level of 102 and albumin of 1.7. The only significant change from blood drawn on the of last month is the ammonia. Differential Diagnosis Abdominal pain from ascites, intra-abdominal abscessunlikely, diverticulitis, urinary tract infection, elevated ammonia level, electrolyte disorder Narrative Course The patient is alert and oriented 3 and the ammonia level does not appear to be a problem at this time. She states she can take her Xifaxan/lactulose. She will need to follow-up on the cystic mass outlined above. Diagnosis Primary Impression: Cirrhosis of liver Additional Impressions: Ascites Mass of left lobe of liver Additional Instructions: As we discussed, you will need to follow-up with the cystic mass with your GI doctor to make sure it is not a cancer. We will refill your Zofran prescription tonight. Follow-up with your GI doctor as soon as possible. Med/Other Pt SpecificInfo: Prescription(s) given Scripts Ondansetron (Zofran)8 Mg Tab8 Mg PO TID #30 TAB Ref 0 Prov:Kendall Vargas MD 11/27/16 Disposition: 01 DISCHARGE HOME Condition: Stable Kendall Vargas MD Nov 26, 2016 22:24
[2016-11-26 23:04] LABS: AUTOMATED NEUTROPHIL # 4.4 TH/MM3 (1.8-7.7); BASOPHIL # 0.3 TH/MM3 (0-0.2); BASOPHIL % 3.8 % (0.0-2.0); CHLORIDE 95 MEQ/L (98-107); EOSINOPHIL # 0.3 TH/MM3 (0-0.4); EOSINOPHIL % 3.7 % (0.0-4.0); HEMATOCRIT 31.4 % (35.0-46.0); HEMO FLAGS DIFF FINAL; LYMPH % 13.7 % (9.0-44.0); MEAN CELL VOLUME 102.8 FL (80.0-100.0); MEAN CORPUSCULAR HEMOGLOBIN 34.7 PG (27.0-34.0); MEAN CORPUSCULAR HGB CONC 33.8 % (32.0-36.0); MONO % 17.6 % (0.0-8.0); NEUT % 61.2 % (16.0-70.0); PLATELET COUNT 141 TH/MM3 (150-450); POTASSIUM 4.7 MEQ/L (3.5-5.1); RED BLOOD COUNT 3.05 MIL/MM3 (4.00-5.30); RED CELL DISTRIBUTION WIDTH 14.6 % (11.6-17.2); SODIUM (NA) 128 MEQ/L (136-145); WHITE BLOOD COUNT 7.3 TH/MM3 (4.0-11.0)
[2016-11-26 23:08] LABS: ANION GAP 11 MEQ/L (5-15); BICARBONATE 21.8 MEQ/L (21.0-32.0); BLOOD UREA NITROGEN 13 MG/DL (7-18)
[2016-11-26 23:11] LABS: ALT (GPT) 39 U/L (10-53); AST (GOT) 72 U/L (15-37); GLOMERULAR FILTRATION RATE 69 ML/MIN (>89)
[2016-11-26 23:13] LABS: TOTAL BILIRUBIN ADULT 2.6 MG/DL (0.2-1.0)
[2016-11-26 23:14] LABS: ALKALINE PHOSPHATASE 199 U/L (45-117)
--- NOTE | 2016-11-26 23:32 | RADHPO ---
EXAM DATE/TIME: 11/26/2016 23:01 [facility] COMPARISON: CT ABDOMEN & PELVIS W/O CONTRAST, August 13, 2016, 11:46. INDICATIONS : Lower abdominal pain. ORAL CONTRAST: No oral contrast ingested. RADIATION DOSE: 9.44 CTDIvol (mGy) MEDICAL HISTORY : Cirrhosis. Ulcers. Hernia, hiatal.Hep C. Ascites. SURGICAL HISTORY : Left hip replacement. ENCOUNTER: Initial ACUITY: 3 days PAIN SCALE: 10/10 LOCATION: Bilateral lower quadrant TECHNIQUE: Volumetric scanning of the abdomen and pelvis was performed. Using automated exposure control and ad justment of the mA and/or kV according to patient size, radiation dose was kept as low as reasonably achievable to obtain optimal diagnostic quality images. FINDINGS: The previously seen low attenuating mainly cystic mass in the left hepatic lobe has enlarged ishan suring 2.5 cm, it measured 1.8 cm previously. The liver appears cirrhotic with moderate ascites throu ghout the abdomen and pelvis not significantly changed with haziness of the mesentery probably due to passive congestion. The spleen is enlarged measuring 14.6 cm in craniocaudal dimension without focal lesions for technique. There are varices in the upper abdomen at the level of the gastroesophageal j unction and splenic hilum in addition to retroperitoneum. The kidneys, adrenals and pancreas are unre markable. CONCLUSION: 1. Cirrhosis, splenomegaly signs of portal venous hypertension and moderate amount of ascites. 2. Left hepatic lobe mainly low attenuating cystic mass appears larger since 07/2016. Underlying neopl astic etiologies are difficult to exclude and not adequately characterized. Bailey Quick MD on November 26, 2016 at 23:23 Board Certified Radiologist. This report was verified electronically.
[2016-11-26 23:58] VITALS: BP 100/66; PULSE 76; RESP 16; O2SAT 97
[2016-11-27] MEDS ORDERED: ZOFR8TAB PO (00:07)
[2016-11-27 00:20] VITALS: BP 100/60; TEMP 98.2
== END 2016-11-27 00:43 | disposition home or self-care (01) ==
LOC: PHED 21:46
DX: K70.31 Alcoholic cirrhosis of liver with ascites (principal); K76.89 Other specified diseases of liver; R11.0 Nausea; E03.9 Hypothyroidism, unspecified; Z86.59 Personal history of other mental and behavioral disorders; Z87.19 Personal history of other diseases of the digestive system
CPT/HCPCS: 74176; 80053; 82140; 85025

== ENCOUNTER 2016-12-04 14:28 | Emergency (ER) | payer MEDICAID ==
[~2016-12-04] VITALS: Ht 162.6 cm; Wt 53.5 kg
[~2016-12-04 14:28] MED LIST changes: +ZOFR8TAB PO
[2016-12-04 14:32] VITALS: BP 109/61; PULSE 90; RESP 16; TEMP 98.5; O2SAT 99
[2016-12-04] MEDS ORDERED: SODIUM CHLORIDE 0.9% FLUSH 5 ML FLUSH IV FLUSH PRN (14:45)
--- NOTE | 2016-12-04 14:55 | PD ---
HPI Chief Complaint: Abnormal Results Time Seen by Provider: 14:48 Travel History International Travel<30 days: No Contact w/Intl Traveler<30days: No Traveled to known affect area: No History of Present Illness HPI 51-year-old female with history of hepatitis and cirrhosis, hypothyroidism, has had episodes of elevated ammonia levels leading to altered mental status in the past, is brought in I her significant other because she has been looking more disoriented, and he is concerned that this is the same pattern as per previous episodes of elevated ammonia levels. Patient is conversant, denies any fevers, vomiting, abdominal pains, or any other new issues. Modifying Factors: None Associated Signs & Symptoms: Increased disorientation Risk Factors: Liver issues, elevated ammonia levels PFSH Past Medical History Hx Anticoagulant Therapy: No Arthritis: No Asthma: No Autoimmune Disease: No Anxiety: No Depression: Yes Heart Rhythm Problems: No Cancer: No Cardiovascular Problems: No High Cholesterol: No Chemotherapy: No Chest Pain: No Congestive Heart Failure: No Cirrhosis: Yes COPD: No Cerebrovascular Accident: No Diabetes: No Diminished Hearing: No Endocrine: Yes Gastrointestinal Disorders: Yes (HX OF UPPER GI BLEED;ESOPHAGEAL VARICES ; BLEEDING ULCERS) GERD: No Genitourinary: No Headaches: No Hepatitis: Yes (ALCOHOLIC HEPATITIS) Hiatal Hernia: Yes Heparin Induced Thrombocytopen: No Hypertension: No Immune Disorder: No Implanted Vascular Access Dvce: No Kidney Stones: No Medical other: Yes (ESOPHAGEAL VARICES; LIVER CIRRHOSIS; THROMBOCYTOPENIA ;) Musculoskeletal: No Neurologic: No Psychiatric: Yes Reproductive: No Respiratory: No Immunizations Current: Yes Migraines: No Radiation Therapy: No Renal Failure: No Seizures: No Sickle Cell Disease: No Sleep Apnea: No Thyroid Disease: Yes (Hypothyroidism) Ulcer: No ?: Not Menopausal: Yes Past Surgical History Abdominal Surgery: Yes (lewis briseno) AICD: No Body Medical Devices: NONE Cardiac Surgery: No Cholecystectomy: Yes (2006) Ear Surgery: No Endocrine Surgery: No Eye Surgery: No Genitourinary Surgery: No Gynecologic Surgery: No Hysterectomy: No Insulin Pump: No Joint Replacement: Yes (RIGHT HIP REPLACEMENT) Neurologic Surgery: No Oral Surgery: No Pacemaker: No Thoracic Surgery: No Other Surgery: Yes (Cholecystectomy) Social History Alcohol Use: No (H/O ALCOHOLISM ) Tobacco Use: No Substance Use: Yes Allergies-Medications (Allergen,Severity, Reaction): Coded Allergies: Codeine (Verified Allergy, Severe, VOMITING, 12/04/16) MILD REACTION- VOMITING Morphine (Verified Allergy, Severe, PT DENIES, 12/04/16) MILD REACTION Aspirin (Verified Adverse Reaction, Severe, Bleeding, 12/04/16) STOMACH "BLEEDS" PER PT ; SEVERE REACTION Nortriptyline (Verified Adverse Reaction, Severe, Hallucinations, 12/04/16) vomiting ; INTERMEDIATE REACTION Reported Meds & Prescriptions Reported Meds & Active Scripts Active Zofran (Ondansetron HCl) 8 Mg Tab 8 Mg PO TID Oxycodone (Oxycodone HCl) 5 Mg Tab 5 Mg PO Q6H PRN Aldactone (Spironolactone) 50 Mg Tab 50 Mg PO BID@,18 Xifaxan (Rifaximin) 550 Mg Tab 550 Mg PO BID Lactulose Liq (Lactulose) 10 Gm/15 Ml Soln 30 Ml PO TID PRN Titrate to 3-4 bowel movements daily Levothyroxine (Levothyroxine Sodium) 50 Mcg Tab 125 Mcg PO DAILY Reported Furosemide 40 Mg Tab 40 Mg PO DAILY Review of Systems Except as stated in HPI: all other systems reviewed are Neg (patient is able to answer some questions on her own, the rest is from her ) Physical Exam Narrative GENERAL: Well-developed middle age female patient currently in mild distress. Awake, alert, oriented 3. Answering questions on her own. SKIN: Focused skin assessment warm/dry. HEAD: Atraumatic. Normocephalic. EYES: Pupils equal and round. No scleral icterus. No injection or drainage. ENT: No nasal bleeding or discharge. Mucous membranes pink and moist. NECK: Trachea midline. No JVD. CARDIOVASCULAR: Regular rate and rhythm. No murmur appreciated. RESPIRATORY: No accessory muscle use. Clear to auscultation. Breath sounds equal bilaterally. GASTROINTESTINAL: Abdomen soft, non-tender, nondistended. Hepatic and splenic margins not palpable. MUSCULOSKELETAL: No obvious deformities. No clubbing. No cyanosis. No edema. NEUROLOGICAL: Awake and alert. No obvious cranial nerve deficits. Motor grossly within normal limits. Normal speech. PSYCHIATRIC: Appropriate mood and affect; insight and judgment normal. Data Data Last Documented VS Vital Signs Date Time Temp Pulse Resp B/P Pulse Ox O2 Delivery O2 Flow Rate FiO2 12/04/16 15:04 100 Room Air 12/04/16 14:32 98.5 90 16 109/61 Orders Ammonia (12/04/16 14:40) Complete Blood Count With Diff (12/04/16 14:40) Comprehensive Metabolic Panel (12/04/16 14:40) Urinalysis - C+S If Indicated (12/04/16 14:40) Blood Glucose (12/04/16 14:40) Ecg Monitoring (12/04/16 14:40) Iv Access Insert/Monitor (12/04/16 14:40) Oximetry (12/04/16 14:40) Sodium Chloride 0.9% Flush (Ns Flush) (12/04/16 14:45) Prothrombin Time / Inr (Pt) (12/04/16 14:48) Act Partial Throm Time (Ptt) (12/04/16 14:48) Urine Culture (12/04/16 15:00) Labs Laboratory Tests Test 12/04/16 12/04/16 15:00 15:03 Urine Collection Type CLEAN CATCH Urine Color YELLOW Urine Turbidity CLEAR Urine pH 6.0 Urine Specific [place] 1.006 Urine Protein NEG mg/dL Urine Glucose (UA) NEG mg/dL Urine Ketones NEG mg/dL Urine Occult Blood NEG Urine Nitrite NEG Urine Bilirubin NEG Urine Leukocyte Esterase NEG Urine RBC 0-3 /hpf Urine Squamous Epithelial 0-5 /hpf Cells Urine Amorphous Sediment FEW Urine Bacteria MOD /hpf Microscopic Urinalysis Comment CULTURE INDICATED Urine Collection Time 1500 White Blood Count 5.8 TH/MM3 Red Blood Count 3.64 MIL/MM3 Hemoglobin 12.5 GM/DL Hematocrit 37.3 % Mean Corpuscular Volume 102.4 FL Mean Corpuscular Hemoglobin 34.3 PG Mean Corpuscular Hemoglobin 33.5 % Concent Red Cell Distribution Width 15.0 % Platelet Count 163 TH/MM3 Mean Platelet Volume 7.4 FL Neutrophils (%) (Auto) 74.4 % Lymphocytes (%) (Auto) 9.8 % Monocytes (%) (Auto) 9.8 % Eosinophils (%) (Auto) 3.3 % Basophils (%) (Auto) 2.7 % Neutrophils # (Auto) 4.2 TH/MM3 Lymphocytes # (Auto) 0.6 TH/MM3 Monocytes # (Auto) 0.6 TH/MM3 Eosinophils # (Auto) 0.2 TH/MM3 Basophils # (Auto) 0.2 TH/MM3 CBC Comment DIFF FINAL Differential Comment Prothrombin Time 14.4 SEC Prothromb Time International 1.3 RATIO Ratio Activated Partial 29.4 SEC Thromboplast Time Sodium Level 133 MEQ/L Potassium Level 4.4 MEQ/L Chloride Level 102 MEQ/L Carbon Dioxide Level 20.9 MEQ/L Anion Gap 10 MEQ/L Blood Urea Nitrogen 10 MG/DL Creatinine 0.90 MG/DL Estimat Glomerular Filtration 66 ML/MIN Rate Random Glucose 142 MG/DL Calcium Level 7.7 MG/DL Total Bilirubin 3.5 MG/DL Aspartate Amino Transf 76 U/L (AST/SGOT) Alanine Aminotransferase 43 U/L (ALT/SGPT) Alkaline Phosphatase 199 U/L Ammonia 68 MCMOL/L Total Protein 7.7 GM/DL Albumin 2.0 GM/DL MDM Medical Decision Making Medical Screen Exam Complete: Yes Emergency Medical Condition: Yes Medical Record Reviewed: Yes Interpretation(s) Laboratory Tests Test 12/04/16 12/04/16 15:00 15:03 Urine Bacteria MOD /hpf (NONE) Red Blood Count 3.64 MIL/MM3 (4.00-5.30) Mean Corpuscular Volume 102.4 FL (80.0-100.0) Mean Corpuscular Hemoglobin 34.3 PG (27.0-34.0) Neutrophils (%) (Auto) 74.4 % (16.0-70.0) Monocytes (%) (Auto) 9.8 % (0.0-8.0) Basophils (%) (Auto) 2.7 % (0.0-2.0) Lymphocytes # (Auto) 0.6 TH/MM3 (1.0-4.8) Prothrombin Time 14.4 SEC (9.8-11.6) Sodium Level 133 MEQ/L (136-145) Carbon Dioxide Level 20.9 MEQ/L (21.0-32.0) Estimat Glomerular Filtration 66 ML/MIN (>89) Rate Random Glucose 142 MG/DL (74-106) Calcium Level 7.7 MG/DL (8.5-10.1) Total Bilirubin 3.5 MG/DL (0.2-1.0) Aspartate Amino Transf 76 U/L (15-37) (AST/SGOT) Alkaline Phosphatase 199 U/L (45-117) Ammonia 68 MCMOL/L (11-32) Albumin 2.0 GM/DL (3.4-5.0) Differential Diagnosis Increased disorientationrule out metabolic issues versus elevated ammonia level versus liver failure Narrative Course Patient is alert, awake and able to answer questions quite appropriately. At this point, lab work returns showing mildly elevated ammonia levels of 68 which appears to be improved from the last admission. Otherwise, LFTs are elevated, appears to be baseline for this patient. There are no signs of significant infections or significant metabolic issues. Abdomen is benign, it is not significantly distended at this time. I have talked to patient and regarding observation admission versus close follow-up with her physicians. Patient's states that he is comfortable with close outpatient follow-up , he states that he is fairly used to observing her on his own and will bring her back should she develop any further symptoms. At this point, my plan would be to release her with follow-up to primary care physician and GI doctor. Patient is already on Aldactone and Lasix. She has chronic diarrhea secondary to the lactulose that she also gets. There does not appear to be other acute processes. Return for any worsening in symptoms as needed. The plan was discussed with patient's and he states understanding. Case is discussed with Drs. Burnett who agrees with plan. Diagnosis Primary Impression: Cirrhosis of liver Additional Impression: Hyperammonemia Disposition: 01 DISCHARGE HOME Condition: Stable Jennifer Levi MD Dec 04, 2016 14:55 Jennifer Levi MD Dec 04, 2016 14:55
[2016-12-04 15:04] VITALS: O2SAT 100
[2016-12-04 15:09] LABS: AUTOMATED NEUTROPHIL # 4.2 TH/MM3 (1.8-7.7); BASOPHIL # 0.2 TH/MM3 (0-0.2); BASOPHIL % 2.7 % (0.0-2.0); EOSINOPHIL # 0.2 TH/MM3 (0-0.4); EOSINOPHIL % 3.3 % (0.0-4.0); HEMATOCRIT 37.3 % (35.0-46.0); HEMO FLAGS DIFF FINAL; LYMPH % 9.8 % (9.0-44.0); LYMPHOCYTE # 0.6 TH/MM3 (1.0-4.8); MEAN CELL VOLUME 102.4 FL (80.0-100.0); MEAN CORPUSCULAR HEMOGLOBIN 34.3 PG (27.0-34.0); MEAN CORPUSCULAR HGB CONC 33.5 % (32.0-36.0); MONO % 9.8 % (0.0-8.0); NEUT % 74.4 % (16.0-70.0); PLATELET COUNT 163 TH/MM3 (150-450); RED BLOOD COUNT 3.64 MIL/MM3 (4.00-5.30); WHITE BLOOD COUNT 5.8 TH/MM3 (4.0-11.0)
[2016-12-04 15:11] LABS: BLOOD, URINE NEG (NEG); GLUCOSE,URINE NEG (NEG); KETONE, URINE NEG (NEG); NITRITE,URINE NEG (NEG)
[2016-12-04 15:17] LABS: CHLORIDE 102 MEQ/L (98-107); POTASSIUM 4.4 MEQ/L (3.5-5.1); SODIUM (NA) 133 MEQ/L (136-145)
[2016-12-04 15:18] LABS: METHOD OF COLLECTION CLEAN CATCH; RBC, URINE 0-3 /hpf (0-3); URINE COLOR YELLOW (YELLW/STRAW)
[2016-12-04 15:19] LABS: BACTERIA, URINE MOD /hpf; COMMENT (UR) CULTURE INDICATED; COMMENT2 (UR) MUCOUS PRESENT; CULTURE IF INDICATED CULTURE INDICATED; SQUAMOUS EPITHELIAL CELL URINE 0-5 /hpf (0-5)
[2016-12-04 15:20] LABS: ANION GAP 10 MEQ/L (5-15); BICARBONATE 20.9 MEQ/L (21.0-32.0)
[2016-12-04 15:21] LABS: BLOOD UREA NITROGEN 10 MG/DL (7-18)
[2016-12-04 15:22] LABS: APTT (PATIENT) 29.4 SEC (24.3-30.1); INTERNATIONAL NORMALIZED RATIO 1.3 RATIO; PROTHROMBIN TIME - PATIENT 14.4 SEC (9.8-11.6)
[2016-12-04 15:23] LABS: ALT (GPT) 43 U/L (10-53); AST (GOT) 76 U/L (15-37)
[2016-12-04 15:24] LABS: GLOMERULAR FILTRATION RATE 66 ML/MIN (>89)
[2016-12-04 15:25] LABS: TOTAL BILIRUBIN ADULT 3.5 MG/DL (0.2-1.0)
[2016-12-04 15:26] LABS: ALKALINE PHOSPHATASE 199 U/L (45-117)
[2016-12-04 17:17] VITALS: BP 106/70; PULSE 70; RESP 16; O2SAT 98
== END 2016-12-04 17:19 | disposition home or self-care (01) ==
LOC: PHED 14:28
DX: K74.60 Unspecified cirrhosis of liver (principal); E72.20 Disorder of urea cycle metabolism, unspecified; R79.89 Other specified abnormal findings of blood chemistry; K75.9 Inflammatory liver disease, unspecified; E03.9 Hypothyroidism, unspecified; Z86.59 Personal history of other mental and behavioral disorders; Z87.19 Personal history of other diseases of the digestive system
CPT/HCPCS: 80053; 81001; 82140; 85025; 85610; 85730; 87086; 99283

== ENCOUNTER 2016-12-22 02:25 | Observation (INO) | payer MEDICAID ==
[2016-12-22] VITALS (14 sets, daily range): BP systolic 88–118; BP diastolic 49–78; PULSE 90–106; RESP 17–24; TEMP 97.4–98.5; O2SAT 98–100
[~2016-12-22] VITALS: Ht 162.6 cm; Wt 56.5 kg
[2016-12-22] MEDS ORDERED: PANT40TA3 PO (02:55)
[2016-12-22] MEDS ORDERED: ONDANSETRON HCL 4 MG/2 ML VIAL IV PUSH ONE (03:15)
[2016-12-22] MEDS ORDERED: VANCOMYCIN INJ 1,000 MG in SODIUM CHLOR 0.9% 250 ML INJ 250 ML IV ONE (03:15)
[2016-12-22] MEDS ORDERED: SODIUM CHLORID 0.9% 500 ML INJ 500 ML IV ONE (03:15)
[2016-12-22] MEDS ORDERED: SODIUM CHLORIDE 0.9% FLUSH 10 ML FLUSH IV FLUSH PRN ×2 (03:15→06:00)
--- NOTE | 2016-12-22 03:35 | PD ---
HPI Chief Complaint: Abdominal Pain Time Seen by Provider: 03:04 Travel History International Travel<30 days: No Contact w/Intl Traveler<30days: No Traveled to known affect area: No History of Present Illness HPI 51-year-old female presents to the emergency department by private transportation for 3 days of increasing abdominal girth with abdominal pain and shortness of breath. Patient states last paracentesis was November 28. Patient denies fever or chills. Patient does complain of generalized weakness. Patient did not take her pain medication reportedly because she does not like Her feel reportedly. She did not contact her managing physician. Patient has end-stage alcoholic liver disease. Patient has had peritonitis in the past. Patient reportedly is being assessed for liver transplant. Patient is followed by primary care provider as well as computer operations specialist Dr. Burnett. No report of vomiting or hematemesis and no change with bowels and no change in bowel movements no hematochezia no melena. Patient has had ongoing nausea. PFSH Past Medical History Narrative Medical Depression cirrhosis ascites peritonitis hepatic encephalopathy alcoholism esophageal varices GI bleed hypothyroidism paracentesis cholecystectomy substance use; nursing notes reviewed Hx Anticoagulant Therapy: No Arthritis: No Asthma: No Autoimmune Disease: No Anxiety: No Depression: Yes Heart Rhythm Problems: No Cancer: No Cardiovascular Problems: No High Cholesterol: No Chemotherapy: No Chest Pain: No Congestive Heart Failure: No Cirrhosis: Yes COPD: No Cerebrovascular Accident: No Diabetes: No Diminished Hearing: No Endocrine: Yes Gastrointestinal Disorders: Yes (HX OF UPPER GI BLEED;ESOPHAGEAL VARICES ; BLEEDING ULCERS) GERD: No Genitourinary: No Headaches: No Hepatitis: Yes (ALCOHOLIC HEPATITIS) Hiatal Hernia: Yes Heparin Induced Thrombocytopen: No Hypertension: No Immune Disorder: No Implanted Vascular Access Dvce: No Kidney Stones: No Medical other: Yes (ESOPHAGEAL VARICES; LIVER CIRRHOSIS; THROMBOCYTOPENIA ;) Musculoskeletal: No Neurologic: No Psychiatric: Yes Reproductive: No Respiratory: No Immunizations Current: Yes Migraines: No Radiation Therapy: No Renal Failure: No Seizures: No Sickle Cell Disease: No Sleep Apnea: No Thyroid Disease: Yes (Hypothyroidism) Ulcer: No Tetanus Vaccination: Unknown Influenza Vaccination: Yes ?: Not Menopausal: Yes Past Surgical History Abdominal Surgery: Yes (lewis briseno) AICD: No Body Medical Devices: NONE Cardiac Surgery: No Cholecystectomy: Yes (2006) Ear Surgery: No Endocrine Surgery: No Eye Surgery: No Genitourinary Surgery: No Gynecologic Surgery: No Hysterectomy: No Insulin Pump: No Joint Replacement: Yes (RIGHT HIP REPLACEMENT) Neurologic Surgery: No Oral Surgery: No Pacemaker: No Thoracic Surgery: No Other Surgery: Yes (Cholecystectomy) Social History Alcohol Use: No (H/O ALCOHOLISM ) Tobacco Use: No Substance Use: Yes Allergies-Medications (Allergen,Severity, Reaction): Coded Allergies: Codeine (Verified Allergy, Severe, VOMITING, 12/22/16) MILD REACTION- VOMITING Morphine (Verified Allergy, Severe, PT DENIES, 12/22/16) MILD REACTION Aspirin (Verified Adverse Reaction, Severe, Bleeding, 12/22/16) STOMACH "BLEEDS" PER PT ; SEVERE REACTION Nortriptyline (Verified Adverse Reaction, Severe, Hallucinations, 12/22/16) vomiting ; INTERMEDIATE REACTION Reported Meds & Prescriptions Reported Meds & Active Scripts Active Zofran (Ondansetron HCl) 8 Mg Tab 8 Mg PO TID Oxycodone (Oxycodone HCl) 5 Mg Tab 5 Mg PO Q6H PRN Aldactone (Spironolactone) 50 Mg Tab 50 Mg PO BID@,18 Xifaxan (Rifaximin) 550 Mg Tab 550 Mg PO BID Lactulose Liq (Lactulose) 10 Gm/15 Ml Soln 30 Ml PO TID PRN Titrate to 3-4 bowel movements daily Levothyroxine (Levothyroxine Sodium) 50 Mcg Tab 125 Mcg PO DAILY Reported Pantoprazole (Pantoprazole Sodium) 40 Mg Tab 40 Mg PO DAILY Furosemide 40 Mg Tab 40 Mg PO DAILY Review of Systems Except as stated in HPI: all other systems reviewed are Neg General / Constitutional: Positive: Chills, No: Fever HENT: No: Congestion Cardiovascular: No: Chest Pain or Discomfort Respiratory: Positive: Shortness of Breath Gastrointestinal: Positive: Nausea, Abdominal Pain, No: Vomiting, Diarrhea Genitourinary: No: Dysuria Musculoskeletal: No: Myalgias, Arthralgias Skin: No Rash Neurologic: Positive: Weakness Psychiatric: No: Anxiety Hematologic/Lymphatic: Positive: Easy Bruising, No: Lymph Node Enlargement Physical Exam Narrative GENERAL: Thin female in no acute distress no respiratory distress SKIN: Warm and dry. [place] HEAD: Normocephalic. EYES: No scleral icterus. No injection or drainage. NECK: Supple, trachea midline. No JVD or lymphadenopathy. CARDIOVASCULAR: Regular rate and rhythm without murmurs, gallops, or rubs. RESPIRATORY: Breath sounds equal bilaterally. No accessory muscle use. GASTROINTESTINAL: Abdomen soft, diffusely tender with fluid wave, nondistended. MUSCULOSKELETAL: No cyanosis, or edema. BACK: Nontender without obvious deformity. No CVA tenderness. Data Data Last Documented VS Vital Signs Date Time Temp Pulse Resp B/P Pulse Ox O2 Delivery O2 Flow Rate FiO2 12/22/16 04:25 105 24 102/50 98 Room Air 12/22/16 02:31 98.5 Orders Complete Blood Count With Diff (12/22/16 03:04) Comprehensive Metabolic Panel (12/22/16 03:04) Lipase (12/22/16 03:04) Lactic Acid (12/22/16 03:04) Prothrombin Time / Inr (Pt) (12/22/16 03:04) Act Partial Throm Time (Ptt) (12/22/16 03:04) Urinalysis - C+S If Indicated (12/22/16 03:04) Ct Abd/Pel W Iv Contrast(Rout) (12/22/16 03:04) Iv Access Insert/Monitor (12/22/16 03:04) Ecg Monitoring (12/22/16 03:04) Oximetry (12/22/16 03:04) Sodium Chloride 0.9% Flush (Ns Flush) (12/22/16 03:15) Electrocardiogram (12/22/16 03:04) Chest, Single Ap (12/22/16 03:04) Ammonia (12/22/16 03:04) Blood Culture (12/22/16 03:04) Magnesium (Mg) (12/22/16 03:04) Alcohol (Ethanol) (12/22/16 03:04) Ondansetron Inj (Zofran Inj) (12/22/16 03:15) Sodium Chlor 0.9% 1000 Ml Inj (Ns 1000 M (12/22/16 03:15) Sodium Chlorid 0.9% 500 Ml Inj (Ns 500 M (12/22/16 03:15) Vancomycin Inj (Vancomycin Inj) (12/22/16 03:15) Lactulose Liq (Lactulose Liq) (12/22/16 04:15) Lactic Acid (12/22/16 04:41) Iohexol 350 Inj (Omnipaque 350 Inj) (12/22/16 04:47) Piperacil-Tazo 4.5 Gm Premix (Zosyn 4.5 (12/22/16 05:00) Admit To Inpatient (12/22/16 ) Vital Signs (Adult) Q4H (12/22/16 06:00) Activity Oob With Assistance (12/22/16 06:00) Retread Technician / Telemetry .CONTINUOUS (12/22/16 06:00) Diet Heart Healthy (12/22/16 Breakfast) Sodium Chloride 0.9% Flush (Ns Flush) (12/22/16 06:00) Sodium Chloride 0.9% Flush (Ns Flush) (12/22/16 09:00) Basic Metabolic Panel (Bmp) (12/23/16 06:00) Complete Blood Count With Diff (12/23/16 06:00) Case Management Consult (12/22/16 06:00) Naloxone Inj (Narcan Inj) (12/22/16 06:00) Inpatient Certification (12/22/16 ) Labs Laboratory Tests Test 12/22/16 12/22/16 12/22/16 03:00 03:10 05:11 Urine Color DILAN Urine Turbidity CLEAR Urine pH 5.5 Urine Specific [place] GREATER THAN 1.035 Urine Protein TRACE mg/dL Urine Glucose (UA) NEG mg/dL Urine Ketones NEG mg/dL Urine Occult Blood NEG Urine Nitrite NEG Urine Bilirubin MOD Urine Leukocyte Esterase NEG Urine RBC 0-3 /hpf Urine Squamous Epithelial 0-5 /hpf Cells Urine Bacteria FEW /hpf Urine Mucus MOD /lpf Microscopic Urinalysis Comment CULT NOT INDICATED White Blood Count 6.8 TH/MM3 Red Blood Count 2.98 MIL/MM3 Hemoglobin 10.4 GM/DL Hematocrit 30.7 % Mean Corpuscular Volume 102.8 FL Mean Corpuscular Hemoglobin 34.7 PG Mean Corpuscular Hemoglobin 33.8 % Concent Red Cell Distribution Width 15.1 % Platelet Count 117 TH/MM3 Mean Platelet Volume 6.8 FL Neutrophils (%) (Auto) 61.3 % Lymphocytes (%) (Auto) 17.6 % Monocytes (%) (Auto) 15.0 % Eosinophils (%) (Auto) 4.3 % Basophils (%) (Auto) 1.8 % Neutrophils # (Auto) 4.2 TH/MM3 Lymphocytes # (Auto) 1.2 TH/MM3 Monocytes # (Auto) 1.0 TH/MM3 Eosinophils # (Auto) 0.3 TH/MM3 Basophils # (Auto) 0.1 TH/MM3 CBC Comment DIFF FINAL Differential Comment Prothrombin Time 15.5 SEC Prothromb Time International 1.4 RATIO Ratio Activated Partial 31.5 SEC Thromboplast Time Sodium Level 133 MEQ/L Potassium Level 4.0 MEQ/L Chloride Level 100 MEQ/L Carbon Dioxide Level 21.4 MEQ/L Anion Gap 12 MEQ/L Blood Urea Nitrogen 7 MG/DL Creatinine 0.68 MG/DL Estimat Glomerular Filtration 91 ML/MIN Rate Random Glucose 133 MG/DL Lactic Acid Level 3.3 mmol/L 2.3 mmol/L Calcium Level 7.4 MG/DL Protein Corrected Calcium 7.6 MG/DL Magnesium Level 1.6 MG/DL Total Bilirubin 2.6 MG/DL Aspartate Amino Transf 63 U/L (AST/SGOT) Alanine Aminotransferase 36 U/L (ALT/SGPT) Alkaline Phosphatase 197 U/L Ammonia 231 MCMOL/L Total Protein 6.8 GM/DL Albumin 1.8 GM/DL Lipase 209 U/L Ethyl Alcohol Level LESS THAN 3 MG/DL MDM Medical Decision Making Medical Screen Exam Complete: Yes Emergency Medical Condition: Yes Medical Record Reviewed: Yes Interpretation(s) NH3: 231, elevated Last Impressions Chest X-Ray 12/22/16303 Signed Impressions: Service Date/Time: Thursday, December 22, 2016 03:21 - CONCLUSION: The lungs are clear. Faisal Geronimo MD Abdomen/Pelvis CT 12/22/16303 Signed Impressions: Service Date/Time: Thursday, December 22, 2016 04:35 - CONCLUSION: No acute findings. Cirrhosis and severe ascites, similar in severity to 2013.. Faisal Geronimo MD CBC & BMP Diagram 12/22/16 03:10 Vital Signs Date Time Temp Pulse Resp B/P Pulse Ox O2 Delivery O2 Flow Rate FiO2 12/22/16 04:25 105 24 102/50 98 Room Air 12/22/16 03:46 104 94/49 99 Room Air 12/22/16 02:43 18 12/22/16 02:31 98.5 106 18 99/63 100 lactic acid: 3.3, elevated Differential Diagnosis Abdominal pain, increasing ascites, spontaneous bacterial peritonitis, UTI, pancreatitis, hepatic encephalopathy/hyperammonemia, alcohol ingestion Narrative Course Patient with tachycardia hypotension abdominal tenderness with fluid wave consistent with ascites concerning for SBP blood cultures and lactic acid specimens collected along with basic labs and serum ammonia level; chest x-ray ordered; patient presumptively administered vancomycin may require addition of Zosyn. Patient given fluid bolus 500 cc normal saline. Patient identified to have ascites CT abdomen and pelvis reveals no other acute abnormality total white cell count is within normal range patient does have chronic thrombocytopenia is noted to have hyperammonemia due to abdominal tenderness with ascites and worsening symptoms within the past 2 days patient presumptively manage for possible peritonitis and does note to have elevated lactic acid. Patient resting more comfortably has received lactulose Patient aware plan for admission and patient's case discussed with JARAD Howell Sepsis Criteria SIRS Criteria (2 or more): Heart rate over 90 Physician Communication Physician Communication discussed with Dr Crabtree--admit to [facility] service Diagnosis Primary Impression: Abdominal pain Qualified Code: R10.84 - Generalized abdominal pain Additional Impressions: Ascites Qualified Code: K70.31 - Ascites due to alcoholic cirrhosis Cirrhosis of liver Hyperammonemia Admitting Information Admitting Physician Requests: Admit Kerrie Boyle MD Dec 22, 2016 03:35
[2016-12-22 03:38] LABS: AUTOMATED NEUTROPHIL # 4.2 TH/MM3 (1.8-7.7); BASOPHIL # 0.1 TH/MM3 (0-0.2); BASOPHIL % 1.8 % (0.0-2.0); EOSINOPHIL # 0.3 TH/MM3 (0-0.4); EOSINOPHIL % 4.3 % (0.0-4.0); HEMATOCRIT 30.7 % (35.0-46.0); HEMO FLAGS DIFF FINAL; LYMPH % 17.6 % (9.0-44.0); LYMPHOCYTE # 1.2 TH/MM3 (1.0-4.8); MEAN CELL VOLUME 102.8 FL (80.0-100.0); MEAN CORPUSCULAR HEMOGLOBIN 34.7 PG (27.0-34.0); MEAN CORPUSCULAR HGB CONC 33.8 % (32.0-36.0); NEUT % 61.3 % (16.0-70.0); PLATELET COUNT 117 TH/MM3 (150-450); RED BLOOD COUNT 2.98 MIL/MM3 (4.00-5.30); RED CELL DISTRIBUTION WIDTH 15.1 % (11.6-17.2); WHITE BLOOD COUNT 6.8 TH/MM3 (4.0-11.0)
[2016-12-22] MEDS: SODIUM CHLOR 0.9% 1000 ML INJ 1,000 ML IV SCH ×2 (03:39→12:39)
[2016-12-22 03:41] LABS: BLOOD, URINE NEG (NEG); GLUCOSE,URINE NEG (NEG); KETONE, URINE NEG (NEG); NITRITE,URINE NEG (NEG); PH, URINE 5.5 (5.0-8.5)
[2016-12-22 03:47] LABS: CHLORIDE 100 MEQ/L (98-107); SODIUM (NA) 133 MEQ/L (136-145)
[2016-12-22 03:52] LABS: APTT (PATIENT) 31.5 SEC (24.3-30.1); INTERNATIONAL NORMALIZED RATIO 1.4 RATIO; PROTHROMBIN TIME - PATIENT 15.5 SEC (9.8-11.6)
[2016-12-22 03:56] LABS: URINE COLOR AMBER (YELLW/STRAW)
[2016-12-22 03:57] LABS: BACTERIA, URINE FEW /hpf; MUCUS URINE MOD /lpf (OCC); SQUAMOUS EPITHELIAL CELL URINE 0-5 /hpf (0-5)
[2016-12-22 03:58] LABS: COMMENT (UR) CULT NOT INDICATED; CULTURE IF INDICATED CULT NOT INDICATED; RBC, URINE 0-3 /hpf (0-3)
[2016-12-22] MEDS ORDERED: LACTULOSE SYRUP 20 GM/30 ML CUP PO ONE (04:15)
--- NOTE | 2016-12-22 04:16 | RADRPT ---
EXAM DATE/TIME: 12/22/2016 03:21 [facility] COMPARISON: CHEST SINGLE AP, November 19, 2016, 14:09. INDICATIONS : Chest and abdominal pain. MEDICAL HISTORY : Cirrhosis. Ulcers. Hernia, hiatal.Hep C. Ascites. SURGICAL HISTORY : None. ENCOUNTER: Initial ACUITY: 1 day PAIN SCORE: 8/10 LOCATION: Bilateral lower chest FINDINGS: A single view of the chest demonstrates the lungs to be symmetrically aerated without evidence of mas s, infiltrate or effusion. The cardiomediastinal contours are unremarkable. Osseous structures are intact. CONCLUSION: The lungs are clear. Faisal Geronimo MD on December 22, 2016 at 4:14 Board Certified Radiologist. This report was verified electronically.
[2016-12-22 04:25] LABS: ALKALINE PHOSPHATASE 197 U/L (45-117); ALT (GPT) 36 U/L (10-53); ANION GAP 12 MEQ/L (5-15); AST (GOT) 63 U/L (15-37); BICARBONATE 21.4 MEQ/L (21.0-32.0); BLOOD UREA NITROGEN 7 MG/DL (7-18); CALCIUM-PROTEIN CORRECTED 7.6 MG/DL (8.5-10.1); GLOMERULAR FILTRATION RATE 91 ML/MIN (>89); MAGNESIUM 1.6 MG/DL (1.5-2.5); TOTAL BILIRUBIN ADULT 2.6 MG/DL (0.2-1.0)
[2016-12-22] MEDS ORDERED: IOHEXOL 350 MG/ML 10 ML VIAL (for RAD DIAG) IV ONE (04:47)
[2016-12-22] MEDS ORDERED: PIPERACIL-TAZO 4.5 GM PREMIX 100 ML IV ONE (05:00)
--- NOTE | 2016-12-22 05:17 | RADRPT ---
EXAM DATE/TIME: 12/22/2016 04:35 [facility] COMPARISON: CT ABDOMEN & PELVIS W CONTRAST, January 16, 2013, 1:33. INDICATIONS : Bilateral flank pain. IV CONTRAST: 85 cc Omnipaque 350 (iohexol) IV ORAL CONTRAST: No oral contrast ingested. RADIATION DOSE: 6.58 CTDIvol (mGy) MEDICAL HISTORY : Hepatitis C. Cirrhosis. Hypothyroidism. SURGICAL HISTORY : Cholecystectomy. Umbilical hernia repair. ENCOUNTER: Initial ACUITY: 4 - 6 days PAIN SCALE: 7/10 LOCATION: Bilateral flank TECHNIQUE: Volumetric scanning of the abdomen and pelvis was performed. Using automated exposure control and ad justment of the mA and/or kV according to patient size, radiation dose was kept as low as reasonably achievable to obtain optimal diagnostic quality images. DICOM format image data is available electro nically for review and comparison. FINDINGS: Comparison is made to an examination performed in December 2012 which demonstrated cirrhosis, left hepati c cyst, severe ascites and multiple upper abdominal varices. On today's examination, the severity of the ascites and the configuration of the liver is stable. There is symmetric enhancement of the kid neys without evidence of hydronephrosis or renal stone. The spleen is enlarged, stable from prior. No dilated loops of small or large bowel. Left total hip arthroplasty. Cholecystectomy. The visual ized lower lungs are clear. CONCLUSION: No acute findings. Cirrhosis and severe ascites, similar in severity to 2012.. Faisal Geronimo MD on December 22, 2016 at 5:07 Board Certified Radiologist. This report was verified electronically.
[2016-12-22] MEDS ORDERED: NALOXONE HCL 0.4 MG/ML AMP IV PRN (06:00)
[2016-12-22] MEDS ORDERED: SODIUM CHLORIDE 0.9% FLUSH 10 ML FLUSH IVF PRN (06:15)
[2016-12-22] MEDS: LEVOTHYROXINE SODIUM 125 MCG TAB PO SCH (07:41)
[2016-12-22] MEDS ORDERED: SODIUM CHLORIDE 0.9% FLUSH 10 ML FLUSH IV FLUSH SCH (09:00)
--- NOTE | 2016-12-22 09:57 | RADRPT ---
EXAM DATE/TIME: 12/22/2016 07:42 [facility] COMPARISON: EXTERNAL COMPARISON: US GUIDED ABD PARACENTESIS, November 20, 2016, 11:02. [facility], US ABDOMEN - COMPLETE , Jul 01 2016, July 08, 2015. INDICATIONS : Ascites. MEDICAL HISTORY : Hypothyroidism. Hernia, hiatal. Cirrhosis. Hep C. Thrombocytopenia. Esophogeal varices. GI bleed. Ble eding ulcers. GERD. Anorexia. Bulimia. ETOH abuse. SURGICAL HISTORY : Cholecystectomy Paracentesis. EGD banding. Right hip replacement. Blood transfusions. ENCOUNTER: Subsequent ACUITY: 1 month PAIN SCORE: 8/10 LOCATION: Left lower quadrant FLUID: Total volume of 3,400 cc of clear, yellow fluid was removed. Fluid was sent to lab for ordered studies. Post procedure scanning reveals no hematoma or other complication. TECHNIQUE: 1. Ultrasound guidance for abdominal paracentesis. 2. Paracentesis. The risks, benefits, and alternatives to ultrasound guided paracentesis were explained to the patient in detail including the risk of bleeding and infection. Written and verbal informed consent was obt ained. With the patient on the ultrasound table, ultrasound imaging was used to select the most appropriate approach for paracentesis. Overlying skin was prepped and draped in the usual sterile fashion and wi th a local anesthetic, a dermatotomy was made with an 11 blade scalpel. A 6 [place] Elh-[id number] ca theter was introduced into the peritoneal cavity and fluid was collected. The patient tolerated the procedure well and left the ultrasound suite in stable condition. CONCLUSION: Uncomplicated ultrasound guided paracentesis. Faisal Soriano Jr., MD on December 22, 2016 at 9:54 Board Certified Radiologist. This report was verified electronically.
[2016-12-22] MEDS: SODIUM CHLORIDE 0.9% FLUSH 10 ML FLUSH IV FLUSH SCH ×2 (10:22→20:55)
[2016-12-22] MEDS: ONDANSETRON ODT 4 MG TAB PO SCH ×3 (10:23→17:03)
[2016-12-22] MEDS: SPIRONOLACTONE 50 MG TAB PO SCH ×2 (10:23→17:03)
[2016-12-22] MEDS: LACTULOSE SYRUP 20 GM/30 ML CUP PO SCH ×4 (10:23→20:55)
[2016-12-22] MEDS: FUROSEMIDE 40 MG TAB PO SCH (10:23)
[2016-12-22] MEDS: RIFAXIMIN 550 MG TAB PO SCH ×2 (10:23→20:56)
[2016-12-22] MEDS: PANTOPRAZOLE SOD 40 MG DELAYED RELEASE TAB PO SCH (10:23)
[2016-12-22 11:39] LABS: PERITONEAL WBC 149 /MM3 (0-10)
[2016-12-22 12:19] LABS: PERITONEAL HISTIOCYTES 71 %; PERITONEAL LYMPHS 6 %; PERITONEAL MESOTHELIAL 17 %; PERITONEAL POLYS(SEGS) 6 %
[2016-12-22] MEDS: PIPERACIL-TAZO 4.5 GM PREMIX 100 ML IV SCH ×3 (12:39→23:15)
--- NOTE | 2016-12-22 20:31 | MB ---
cc: KAE CASTELLANOS M.D. DATE OF CONSULTATION 12/22/[address] Crabtree REASON FOR CONSULTATION Ascites, nausea. HISTORY OF PRESENT ILLNESS Ms. Santamaria is a 51-year-old lady with history of liver cirrhosis secondary to alcohol, known to us from previous visits to the hospital and to the office who came to emergency room with increased abdominal distension, found to have ascites. Also, she has some nausea. She has had paracentesis since her admission to the hospital. She feels much better. She was recently seen in our office and was advised to continue her current medication, low-salt diet and started on lactulose due to elevated ammonia level. The patient was evaluated to [facility] for possible liver transplantation, placed on the list initially but due to her clinical improvement she was taken off. Today, she is feeling much better after paracentesis. She denies any use of alcohol. She denies noncompliance with medication, recent travel or infection. PAST MEDICAL HISTORY She has liver cirrhosis secondary to alcohol, hypothyroidism, history of GI bleed secondary to esophageal varices, history status post banding. PAST SURGICAL HISTORY She has left hip replaced. Lap choley, hernia repair. ALLERGIES ASPIRIN, CODEINE, MORPHINE AND NORTRIPTYLINE. SOCIAL HISTORY She denies any smoking, drinking or drug use. Stopped drinking 4 years ago. MEDICATIONS She is takin. Lasix. 2. Lactulose. 3. Synthroid. 4. Zofran. 5. Protonix. 6. Piperacillin. 7. Rifaximine. At home she is takin. Lasix. 2. Lactulose. 3. Synthroid. 4. Zofran. 5. Oxycodone. 6. Protonix. 7. Rifaximine. 8. Spironolactone. REVIEW OF SYSTEMS CONSTITUTIONAL: On review of systems she denies any fever or chills, weight loss or weight gain. ENT: No alteration in baseline hearing or visual acuity PULMONARY: Denies any chest pain, shortness of breath. GASTROINTESTINAL: As above. GENITOURINARY: Denies dysuria, hematuria. HEMATOLOGIC: No history of anemia or bleeding disorder. SKIN: No alteration in baseline skin lesion. NEUROLOGICAL: No history of TIA or CVA kind of symptoms. PHYSICAL EXAMINATION GENERAL: On clinical examination she is sitting comfortably in bed at this time in no acute distress. VITAL SIGNS: Temperature is 97.7, pulse 98, respirations 17, blood pressure 104/65. She was hypertensive earlier in the day. HEENT: Jaundice. NECK: No JVD. No lymphadenopathy. CHEST: Clear to auscultation, palpation. CARDIOVASCULAR: S1-S2. No murmur. ABDOMEN: Abdomen is soft, mildly distended. Mild ascites. Bowel sounds are present. RADIOGRAPHER TECHNOLOGIST: Is awake, alert, oriented x3. No indication of flapping tremor at this time. LABORATORY DATA Her hemoglobin was 10.4, white count is 6.8, MCV 102, platelets 117. Her bilirubin is 2.6, ammonia 231, AST 63, ALT 36. Her alcohol level was negative. Paracentesis showed WBC 149 with neutrophils 6%, RBC 219, albumin and total protein is pending. No indication of SBP at this time. IMPRESSION Ms. Santamaria is a 51-year-old lady with history of end-stage liver disease secondary to alcohol admitted with increased abdominal distension and ascites. No indication of SBP at this time. RECOMMENDATIONS Two gram sodium diet. Continue Lasix and Aldactone tailored according to her blood pressure. Ammonia level no clinical indication at this time of hepatic encephalopathy. Continue lactulose and spironolactone. If stable, may be discharged home in the morning and follow up in the office in 1-2 weeks. Thank you for referring her to our office for consultation. If remains hospitalized will continue to follow the patient along with you. Kae Castellanos MD BSB/EO /5:57 PM /8:20 PM
--- NOTE | 2016-12-22 23:09 | EKG ---
Date Performed: 12/22/2016 Time Performed: 03:59:08 PTAGE: 51 years EKG: SINUS TACHYCARDIA WITH OCCASIONAL SUPRAVENTRICULAR PREMATURE COMPLEXES ABNORMAL RHYTHM ECG PREVIOUS TRACING : 11/19/2016 13.38 Compared to prior tracing no significant change DOCTOR: Uzma Galarza Interpretating Date/Time 12/22/2016 23:07:16
[2016-12-23] VITALS: BP 92/56; PULSE 91; RESP 18; TEMP 98.3; O2SAT 97
[2016-12-23] MEDS: SODIUM CHLOR 0.9% 1000 ML INJ 1,000 ML IV SCH ×2 (02:23→10:52)
[2016-12-23 03:12] LABS: BODY FLUID LDH 40 U/L (()); BODY FLUID LDH SOURCE PERITONEAL (())
[2016-12-23 04:00] VITALS: BP 90/68; PULSE 91; RESP 16; TEMP 98.2; O2SAT 97
[2016-12-23] MEDS: LEVOTHYROXINE SODIUM 125 MCG TAB PO SCH (05:44)
[2016-12-23] MEDS: PIPERACIL-TAZO 4.5 GM PREMIX 100 ML IV SCH ×2 (05:44→11:00)
[2016-12-23 06:16] LABS: AUTOMATED NEUTROPHIL # 2.9 TH/MM3 (1.8-7.7); BASOPHIL % 0.3 % (0.0-2.0); EOSINOPHIL # 0.3 TH/MM3 (0-0.4); EOSINOPHIL % 6.6 % (0.0-4.0); HEMATOCRIT 27.6 % (35.0-46.0); LYMPH % 16.3 % (9.0-44.0); LYMPHOCYTE # 0.7 TH/MM3 (1.0-4.8); MEAN CORPUSCULAR HEMOGLOBIN 34.3 PG (27.0-34.0); MONO % 14.3 % (0.0-8.0); NEUT % 62.5 % (16.0-70.0); PLATELET COUNT 100 TH/MM3 (150-450); RED BLOOD COUNT 2.73 MIL/MM3 (4.00-5.30); RED CELL DISTRIBUTION WIDTH 14.4 % (11.6-17.2); WHITE BLOOD COUNT 4.6 TH/MM3 (4.0-11.0)
[2016-12-23 06:18] LABS: HEMO FLAGS DIFF FINAL
[2016-12-23 06:25] LABS: POTASSIUM 3.3 MEQ/L (3.5-5.1)
[2016-12-23 06:36] LABS: BICARBONATE 20.4 MEQ/L (21.0-32.0)
[2016-12-23 08:00] VITALS: BP 97/65; PULSE 81; RESP 18; TEMP 97.9; O2SAT 98
[2016-12-23] MEDS: LACTULOSE SYRUP 20 GM/30 ML CUP PO SCH (08:22)
[2016-12-23] MEDS: ONDANSETRON ODT 4 MG TAB PO SCH (08:22)
[2016-12-23] MEDS: RIFAXIMIN 550 MG TAB PO SCH (08:22)
[2016-12-23] MEDS: PANTOPRAZOLE SOD 40 MG DELAYED RELEASE TAB PO SCH (08:22)
[2016-12-23] MEDS: SPIRONOLACTONE 50 MG TAB PO SCH (09:00)
[2016-12-23] MEDS: FUROSEMIDE 40 MG TAB PO SCH (09:00)
[2016-12-23] MEDS: SODIUM CHLORIDE 0.9% FLUSH 10 ML FLUSH IV FLUSH SCH (10:53)
--- NOTE | 2016-12-23 11:54 | HHI.HP ---
[facility] Service [facility] Primary Care Physician David Vo MD Admission Diagnosis abdominal pain; cirrhosis w/ascites; hyperammonemia Diagnoses: Chief Complaint: Abdominal pain, ascites. Travel History International Travel<30 Days: No Contact w/Intl Traveler <30 Da: No Traveled to Known Affected Are: No History of Present Illness Ms. Santamaria is a pleasant 51-year-old female with a history of alcoholic liver disease who presented to the emergency department on 12/22/2016 due to abdominal distention, pain, ascites. Patient recently underwent paracentesis on November 28, 2016. Patient denies any chest pain, fever or chills. Denies any changes in bowel or bladder habits. Patient underwent paracentesis which improved her symptoms. Review of Systems Except as stated in HPI: all other systems reviewed are Neg Past Family Social History Past Medical History Alcoholic liver disease, hypothyroidism, esophageal varices. Past Surgical History Left hip replacement, laparoscopic cholecystectomy, hernia repair Reported Medications Zofran (Ondansetron HCl) 8 Mg Tab 8 Mg PO TID Oxycodone (Oxycodone HCl) 5 Mg Tab 5 Mg PO Q6H PRN Aldactone (Spironolactone) 50 Mg Tab 50 Mg PO BID@09,18 Xifaxan (Rifaximin) 550 Mg Tab 550 Mg PO BID Lactulose Liq (Lactulose) 10 Gm/15 Ml Soln 30 Ml PO TID PRN Titrate to 3-4 bowel movements daily Levothyroxine (Levothyroxine Sodium) 50 Mcg Tab 125 Mcg PO DAILY Reported Pantoprazole (Pantoprazole Sodium) 40 Mg Tab 40 Mg PO DAILY Furosemide 40 Mg Tab 40 Mg PO DAILY Allergies: Coded Allergies: Codeine (Verified Allergy, Severe, VOMITING, 12/22/16) MILD REACTION- VOMITING Morphine (Verified Allergy, Severe, PT DENIES, 12/22/16) MILD REACTION Aspirin (Verified Adverse Reaction, Severe, Bleeding, 12/22/16) STOMACH "BLEEDS" PER PT ; SEVERE REACTION Nortriptyline (Verified Adverse Reaction, Severe, Hallucinations, 12/22/16) vomiting ; INTERMEDIATE REACTION Family History Patient was adopted and thus does not know much family history. Social History Denies using tobacco or alcohol. Physical Exam Vital Signs Vital Signs Date Time Temp Pulse Resp B/P Pulse Ox O2 Delivery O2 Flow Rate FiO2 12/23/16 08:00 97.9 81 18 97/65 98 12/23/16 04:00 98.2 91 16 90/68 97 12/23/16 00:00 98.3 91 18 92/56 97 12/22/16 21:35 99 21 12/22/16 20:07 90 12/22/16 20:00 97.4 99 18 118/78 100 12/22/16 16:00 97.7 98 17 104/65 98 12/22/16 12:00 97.7 96 18 91/52 100 Physical Exam GENERAL: This is a well-nourished, well-developed patient, in no apparent distress. SKIN: No rashes, ecchymoses or lesions. Warm and dry. HEAD: Atraumatic. Normocephalic. No temporal or scalp tenderness. EYES: Pupils equal round and reactive. No injection or drainage. ENT: Nose without bleeding, purulent drainage or septal hematoma. Airway patent. NECK: Trachea midline. No lymphadenopathy. Supple, nontender, no meningeal signs. CARDIOVASCULAR: Regular rate and rhythm without murmurs, gallops, or rubs. No JVD. RESPIRATORY: Clear to auscultation. Breath sounds equal bilaterally. No wheezes , rales, or rhonchi. GASTROINTESTINAL: Abdomen soft, somewhat distended, non-tender. No guarding. MUSCULOSKELETAL: Extremities without clubbing, cyanosis, or edema. NEUROLOGICAL: Awake and alert. Cranial nerves II through XII intact. No focal neurological deficits. Normal speech. Laboratory Laboratory Tests Test 12/23/16 05:15 White Blood Count 4.6 Red Blood Count 2.73 Hemoglobin 9.4 Hematocrit 27.6 Mean Corpuscular Volume 101.0 Mean Corpuscular Hemoglobin 34.3 Mean Corpuscular Hemoglobin 34.0 Concent Red Cell Distribution Width 14.4 Platelet Count 100 Mean Platelet Volume 6.8 Neutrophils (%) (Auto) 62.5 Lymphocytes (%) (Auto) 16.3 Monocytes (%) (Auto) 14.3 Eosinophils (%) (Auto) 6.6 Basophils (%) (Auto) 0.3 Neutrophils # (Auto) 2.9 Lymphocytes # (Auto) 0.7 Monocytes # (Auto) 0.7 Eosinophils # (Auto) 0.3 Basophils # (Auto) 0.0 CBC Comment DIFF FINAL Differential Comment Sodium Level 138 Potassium Level 3.3 Chloride Level 107 Carbon Dioxide Level 20.4 Anion Gap 11 Blood Urea Nitrogen 6 Creatinine 0.65 Estimat Glomerular Filtration 96 Rate Random Glucose 137 Calcium Level 7.2 Protein Corrected Calcium 8.0 Total Protein 5.6 Date/Time Procedure Status Source Growth 12/22/16 09:18 Gram Stain - Final Resulted Fluid Peritoneal Fluid 12/22/16 09:18 Body Fluid Culture Resulted Fluid Peritoneal Fluid Pending 12/22/16 03:15 Aerobic Blood Culture - Preliminary Resulted Blood Peripheral NO GROWTH IN 1 DAY 12/22/16 03:15 Anaerobic Blood Culture - Preliminary Resulted Blood Peripheral NO GROWTH IN 1 DAY Result Diagram: 12/23/16 0515 12/23/16 0515 Imaging Last Impressions Chest X-Ray 12/22/164 Signed Impressions: Service Date/Time: Thursday, December 22, 2016 03:21 - CONCLUSION: The lungs are clear. Faisal Geronimo MD Abdomen/Pelvis CT 12/22/164 Signed Impressions: Service Date/Time: Thursday, December 22, 2016 04:35 - CONCLUSION: No acute findings. Cirrhosis and severe ascites, similar in severity to 2013.. Faisal Geronimo MD Cyst Biopsy Asp-Paracentesis US 12/22/16 0000 Signed Impressions: Service Date/Time: Thursday, December 22, 2016 07:42 - CONCLUSION: Uncomplicated ultrasound guided paracentesis. Faisal Soriano Jr., MD Assessment and Plan Problem List: (1) Alcoholic cirrhosis of liver ICD Code: K70.30 Status: Acute (2) Ascites ICD Code: R18.8 Status: Acute (3) Hypothyroidism ICD Code: 244.9 Status: Chronic Assessment and Plan Ms. Santamaria is a 51-year-old female with a history of alcoholic liver disease who presented to the emergency department on 12/22/2016 due to ascites, abdominal pain, abdominal distention. No fever or chills. Patient underwent GI evaluation as well as paracentesis. - Alcoholic cirrhosis of liver - Ascites - Status post paracentesis. Currently patient is doing well. - Continue Lasix and Aldactone. He blood pressure is low patient was advised to reduce dosages of these 2 medications. - Follow-up with GI in the outpatient setting. - No signs of hepatitic encephalopathy. Continue lactulose to obtain 2-3 loose bowel movements. - Hypothyroidism - continue levothyroxine. Full code. Discharge patient to home Condition on discharge: Improved Heart healthy, low-sodium Diet as tolerated Ad Jennifer activity Rx written: None Follow-up with primary care physician within one week and GI follow-up within one to 2 weeks. Problem Qualifiers (1) Ascites: Qualified Code: K70.31 - Ascites due to alcoholic cirrhosis Stephen Danielle DO Dec 23, 2016 11:54 am
[2016-12-23 12:00] VITALS: BP 113/70; PULSE 121; RESP 22; TEMP 97.8; O2SAT 91
== END 2016-12-23 13:17 | disposition home or self-care (01) ==
LOC: PHED 02:25 → PHEDA 06:02 → INTOOBSV 06:02 → PH3A 08:14
PROVIDERS: ADMIT Hospitalist; ATTEND Hospitalist
DX: K70.31 Alcoholic cirrhosis of liver with ascites (principal); E03.9 Hypothyroidism, unspecified; B19.20 Unspecified viral hepatitis C without hepatic coma; R16.1 Splenomegaly, not elsewhere classified; R11.0 Nausea; R94.31 Abnormal electrocardiogram [ECG] [EKG]; R00.0 Tachycardia, unspecified; R53.1 Weakness; R06.02 Shortness of breath; F10.20 Alcohol dependence, uncomplicated; F32.9 Major depressive disorder, single episode, unspecified; Z79.899 Other long term (current) drug therapy
CPT/HCPCS: 49083; 71010; 74177; 76937; 80048; 80053; 80307; 81001; 82140; 83605; 83615; 83690; 83735; 84155; 85025; 85610; 85730; 87040; 87070; 87205; 89051; 93005; 96361; 96365; 96367; 96375; 99285; C1729; G0378; J2405; J2543; J3370; J7030; J7040; J7050; Q9967

== ENCOUNTER 2017-01-05 12:31 | Emergency (ER) | payer MEDICAID ==
[~2017-01-05] VITALS: Ht 162.6 cm; Wt 65.7 kg
[~2017-01-05 12:31] MED LIST changes: +PANT40TA3 PO
[2017-01-05 12:39] VITALS: BP 96/58; PULSE 95; RESP 20; TEMP 97.8; O2SAT 100
--- NOTE | 2017-01-05 12:59 | PD ---
HPI Chief Complaint: Abdominal Pain Time Seen by Provider: 12:44 Travel History International Travel<30 days: No Contact w/Intl Traveler<30days: No Traveled to known affect area: No History of Present Illness HPI The patient was seen and examined in the presence of the nurse. This patient complains of abdominal bloating and wants paracentesis. She has alcoholic liver disease with ascites and gets frequent paracentesis. She has not set up outpatient one. Not having acute abdominal pain. Severity is moderate. She no longer drinks alcohol. No alleviating factors. She used to be on hospice but no longer is. Last paracentesis was 2 weeks ago. No fever PFSH Past Medical History Hx Anticoagulant Therapy: No Arthritis: No Asthma: No Autoimmune Disease: No Anxiety: No Depression: Yes Heart Rhythm Problems: No Cancer: No Cardiovascular Problems: No High Cholesterol: No Chemotherapy: No Chest Pain: No Congestive Heart Failure: No Cirrhosis: Yes COPD: No Cerebrovascular Accident: No Diabetes: No Diminished Hearing: No Endocrine: Yes Gastrointestinal Disorders: Yes (HX OF UPPER GI BLEED;ESOPHAGEAL VARICES ; BLEEDING ULCERS) GERD: No Genitourinary: No Headaches: No Hepatitis: Yes (ALCOHOLIC HEPATITIS) Hiatal Hernia: Yes Heparin Induced Thrombocytopen: No Hypertension: No Immune Disorder: No Implanted Vascular Access Dvce: No Kidney Stones: No Musculoskeletal: No Neurologic: No Psychiatric: Yes Reproductive: No Respiratory: No Immunizations Current: Yes Migraines: No Radiation Therapy: No Renal Failure: No Seizures: No Sickle Cell Disease: No Sleep Apnea: No Thyroid Disease: Yes (Hypothyroidism) Ulcer: No ?: Not Menopausal: Yes Past Surgical History Abdominal Surgery: Yes (lap benjamin, hernia repair) AICD: No Body Medical Devices: NONE Cardiac Surgery: No Cholecystectomy: Yes (2006) Ear Surgery: No Endocrine Surgery: No Eye Surgery: No Genitourinary Surgery: No Gynecologic Surgery: No Hysterectomy: No Insulin Pump: No Joint Replacement: Yes (LEFT HIP REPLACEMENT) Neurologic Surgery: No Oral Surgery: No Pacemaker: No Thoracic Surgery: No Other Surgery: Yes (Cholecystectomy) Social History Alcohol Use: No (H/O ALCOHOLISM ) Tobacco Use: No Substance Use: Yes ("STOPPED 30 YEARS AGO") Allergies-Medications (Allergen,Severity, Reaction): Coded Allergies: Codeine (Verified Allergy, Severe, VOMITING, 01/05/17) MILD REACTION- VOMITING Morphine (Verified Allergy, Severe, PT DENIES, 01/05/17) MILD REACTION Aspirin (Verified Adverse Reaction, Severe, Bleeding, 01/05/17) STOMACH "BLEEDS" PER PT ; SEVERE REACTION Nortriptyline (Verified Adverse Reaction, Severe, Hallucinations, 01/05/17) vomiting ; INTERMEDIATE REACTION Reported Meds & Prescriptions Reported Meds & Active Scripts Active Aldactone (Spironolactone) 50 Mg Tab 50 Mg PO BID@18 Xifaxan (Rifaximin) 550 Mg Tab 550 Mg PO BID Lactulose Liq (Lactulose) 10 Gm/15 Ml Soln 30 Ml PO TID PRN Titrate to 3-4 bowel movements daily Levothyroxine (Levothyroxine Sodium) 50 Mcg Tab 125 Mcg PO DAILY Reported Levaquin (Levofloxacin) 500 Mg Tablet 500 Mg PO Q6HR Pantoprazole (Pantoprazole Sodium) 40 Mg Tab 40 Mg PO DAILY Furosemide 40 Mg Tab 40 Mg PO DAILY Review of Systems General / Constitutional: No: Fever Eyes: No: Visual changes HENT: No: Headaches Cardiovascular: No: Chest Pain or Discomfort Respiratory: No: Shortness of Breath Gastrointestinal: No: Abdominal Pain Genitourinary: No: Dysuria Musculoskeletal: No: Pain Skin: No Rash Neurologic: No: Weakness Psychiatric: No: Depression Endocrine: No: Polydipsia Hematologic/Lymphatic: No: Easy Bruising Physical Exam Narrative GENERAL: Well-nourished, well-developed patient in no apparent distress. SKIN: Focused skin assessment reveals no rash and nodules. Skin is Warm and dry. HEAD: Atraumatic. Normocephalic. EYES: Pupils equal and round. No scleral icterus. No injection or drainage. ENT: No nasal bleeding or discharge. Mucous membranes pink and moist. NECK: Trachea midline. No JVD. CARDIOVASCULAR: Regular rate and rhythm. No murmur appreciated. RESPIRATORY: No accessory muscle use. Clear to auscultation. Breath sounds equal bilaterally. GASTROINTESTINAL: Abdomen soft, distended, nontender. Hepatic and splenic margins not palpable. MUSCULOSKELETAL: No obvious deformities. No clubbing. No cyanosis. No edema. NEUROLOGICAL: Awake and alert. No obvious cranial nerve deficits. Motor grossly within normal limits. Normal speech. PSYCHIATRIC: Appropriate mood and affect; insight and judgment normal. Data Data Last Documented VS Vital Signs Date Time Temp Pulse Resp B/P Pulse Ox O2 Delivery O2 Flow Rate FiO2 01/05/17 12:39 97.8 95 20 96/58 100 Orders Complete Blood Count With Diff (01/05/17 13:31) Prothrombin Time / Inr (Pt) (01/05/17 13:31) Act Partial Throm Time (Ptt) (01/05/17 13:31) Tramadol (Ultram) (01/05/17 14:00) Labs Laboratory Tests Test 01/05/17 13:50 White Blood Count 5.3 TH/MM3 Red Blood Count 3.43 MIL/MM3 Hemoglobin 11.1 GM/DL Hematocrit 33.9 % Mean Corpuscular Volume 99.0 FL Mean Corpuscular Hemoglobin 32.4 PG Mean Corpuscular Hemoglobin 32.8 % Concent Red Cell Distribution Width 14.6 % Platelet Count 111 TH/MM3 Mean Platelet Volume 6.9 FL Neutrophils (%) (Auto) 61.4 % Lymphocytes (%) (Auto) 15.1 % Monocytes (%) (Auto) 16.8 % Eosinophils (%) (Auto) 5.4 % Basophils (%) (Auto) 1.3 % Neutrophils # (Auto) 3.2 TH/MM3 Lymphocytes # (Auto) 0.8 TH/MM3 Monocytes # (Auto) 0.9 TH/MM3 Eosinophils # (Auto) 0.3 TH/MM3 Basophils # (Auto) 0.1 TH/MM3 CBC Comment DIFF FINAL Differential Comment Prothrombin Time 17.6 SEC Prothromb Time International 1.6 RATIO Ratio Activated Partial 34.8 SEC Thromboplast Time MDM Medical Decision Making Medical Screen Exam Complete: Yes Emergency Medical Condition: Yes Medical Record Reviewed: Yes Differential Diagnosis Ascites, alcoholic liver disease, hepatitis Narrative Course I have reviewed the patient's electronic medical record. Reviewed her most recent history and physical from November 2016. She had 2 paracentesis in November I'm going to ask shoe parts caser to me with her and attempt to set up an outpatient paracentesis for the near future and instructor in the future how to set this up because it's obviously going to be an ongoing issue. She does not need paracentesis emergently now. She has a soft benign nontender abdomen with obvious ascites. manager information has arranged for her to have outpatient paracentesis tomorrow morning at 8 AM They asked her if we could run a CBC and coagulation studies which I am doing so she will not have to go to an outpatient lab for that. She stable for outpatient follow-up tomorrow as scheduled Diagnosis Primary Impression: Alcoholic cirrhosis of liver Qualified Code: K70.31 - Alcoholic cirrhosis of liver with ascites Additional Instructions: The patient was advised to follow up with their physician and return if they worsen. You have outpatient paracentesis scheduled for 8 AM tomorrow morning Med/Other Pt SpecificInfo: Other Disposition: 01 DISCHARGE HOME Condition: Stable Nick Garcia MD Jan 05, 2017 12:59
[2017-01-05] MEDS ORDERED: LEVA500T20 PO (13:06)
[2017-01-05 13:57] LABS: AUTOMATED NEUTROPHIL # 3.2 TH/MM3 (1.8-7.7); BASOPHIL # 0.1 TH/MM3 (0-0.2); BASOPHIL % 1.3 % (0.0-2.0); EOSINOPHIL # 0.3 TH/MM3 (0-0.4); EOSINOPHIL % 5.4 % (0.0-4.0); HEMATOCRIT 33.9 % (35.0-46.0); HEMO FLAGS DIFF FINAL; LYMPH % 15.1 % (9.0-44.0); LYMPHOCYTE # 0.8 TH/MM3 (1.0-4.8); MEAN CORPUSCULAR HEMOGLOBIN 32.4 PG (27.0-34.0); MEAN CORPUSCULAR HGB CONC 32.8 % (32.0-36.0); MONO % 16.8 % (0.0-8.0); NEUT % 61.4 % (16.0-70.0); PLATELET COUNT 111 TH/MM3 (150-450); RED BLOOD COUNT 3.43 MIL/MM3 (4.00-5.30); RED CELL DISTRIBUTION WIDTH 14.6 % (11.6-17.2); WHITE BLOOD COUNT 5.3 TH/MM3 (4.0-11.0)
[2017-01-05] MEDS ORDERED: traMADol HCL 50 MG TAB PO ONE (14:00)
[2017-01-05 14:14] LABS: APTT (PATIENT) 34.8 SEC (24.3-30.1); INTERNATIONAL NORMALIZED RATIO 1.6 RATIO; PROTHROMBIN TIME - PATIENT 17.6 SEC (9.8-11.6)
[2017-01-05] MEDS ORDERED: PHYTONADIONE 10 MG/ML VIAL SQ ONE (14:30)
[2017-01-05 14:33] VITALS: BP 104/56
== END 2017-01-05 14:46 | disposition home or self-care (01) ==
LOC: PHED 12:31
DX: K70.31 Alcoholic cirrhosis of liver with ascites (principal); F10.21 Alcohol dependence, in remission
CPT/HCPCS: 85025; 85610; 85730; 96372; 99284; J3430

== ENCOUNTER 2017-01-06 07:45 | Day surgery (SDC) | payer MEDICAID ==
[~2017-01-06 07:45] MED LIST changes: +LEVA500T20 PO; -OXYC-392 PO; -ZOFR8TAB PO
[2017-01-06 08:12] VITALS: BP 102/61; PULSE 95; RESP 16; TEMP 98.7; O2SAT 99
[2017-01-06 09:55] VITALS: BP 102/66; PULSE 93; RESP 16; TEMP 97.6; O2SAT 93
--- NOTE | 2017-01-06 10:01 | RADRPT ---
EXAM DATE/TIME: 01/06/2017 08:04 [facility] COMPARISON: EXTERNAL COMPARISON: US GUIDED ABD PARACENTESIS, December 22, 2016, 7:42. [facility], US ABDOMEN COMPLETE, Jul 08. [facility], US ABDOMEN COMPLETE, Jul 01, 2016. INDICATIONS : Ascities. MEDICAL HISTORY : Cirrhosis. Hepatitis. Hypothyroidism. Anorexia. Hiatal hernia. Thrombocytopenia. Esophogeal varices. SURGICAL HISTORY : Cholecystectomy Left hip replacement. ENCOUNTER: Subsequent ACUITY: > 1 yr PAIN SCORE: 8/10 LOCATION: Left lower quadrant FLUID: Total volume of 5100 cc of clear, yellow fluid was removed. Fluid was discarded. Paracentesis was therapeutic only. Post procedure scanning reveals no hematoma or other complication. TECHNIQUE: 1. Ultrasound guidance for abdominal paracentesis. 2. Paracentesis. The risks, benefits, and alternatives to ultrasound guided paracentesis were explained to the patient in detail including the risk of bleeding and infection. Written and verbal informed consent was obt ained. With the patient on the ultrasound table, ultrasound imaging was used to select the most appropriate approach for paracentesis. Overlying skin was prepped and draped in the usual sterile fashion and wi th a local anesthetic, a dermatotomy was made with an 11 blade scalpel. A 6 [id number] ca theter was introduced into the peritoneal cavity and fluid was collected. The patient tolerated the procedure well and left the ultrasound suite in stable condition. CONCLUSION: Uncomplicated ultrasound guided paracentesis. Hussain Anderson MD on January 06, 2017 at 9:54 Board Certified Radiologist. This report was verified electronically.
[2017-01-06 10:10] VITALS: BP 95/65; PULSE 90; RESP 16; O2SAT 93
[2017-01-06] MEDS ORDERED: ALBUMIN HUMAN 25% 12.5GM-W/25GM FOR 37.5GM IV ONE (10:15)
[2017-01-06] MEDS ORDERED: ALBUMIN HUMAN 25% 25GM-W/12.5GM FOR 37.5GM IV ONE (10:15)
[2017-01-06 10:25] VITALS: BP 100/62; PULSE 86; RESP 16; O2SAT 100
== END 2017-01-06 11:15 | disposition home or self-care (01) ==
LOC: HRAD 07:45 → HRIP 07:59 → HRAD 11:15
PROVIDERS: ATTEND Internal Medicine Gastroenterology
DX: R18.8 Other ascites (principal); K75.9 Inflammatory liver disease, unspecified; K74.60 Unspecified cirrhosis of liver; E03.9 Hypothyroidism, unspecified; Z96.642 Presence of left artificial hip joint
CPT/HCPCS: 49083; 96365; C1729; P9047

== ENCOUNTER 2017-02-03 15:44 | Emergency (ER) | payer MEDICAID ==
[~2017-02-03] VITALS: Ht 162.6 cm; Wt 60.0 kg
[2017-02-03 15:46] VITALS: BP 109/59; PULSE 89; RESP 16; TEMP 97.8; O2SAT 100
--- NOTE | 2017-02-03 16:17 | PD ---
HPI Chief Complaint: Abdominal Pain Time Seen by Provider: 16:17 Travel History International Travel<30 days: No Contact w/Intl Traveler<30days: No Traveled to known affect area: No History of Present Illness HPI 51-year-old female with history of alcohol cirrhosis and associated ascites with multiple paracentesis in the past, presents today for evaluation of worsening ascites with associated shortness of breath. Patient states that she has not followed up with her primary care or GI specialist and is requesting a paracentesis today here in the emergency department. Reports abdominal "pressure" and feels like her spleen is being "pushed on." Denies nausea or vomiting. Denies any recent illnesses, fever, or chills. Patient states that she follows with Dr. Burnett and has appointment with him next week. States she is no longer drinking alcohol. She has no other symptoms to report at this time. PFSH Past Medical History Hx Anticoagulant Therapy: No Arthritis: No Asthma: No Autoimmune Disease: No Anxiety: No Depression: Yes Heart Rhythm Problems: No Cancer: No Cardiovascular Problems: No High Cholesterol: No Chemotherapy: No Chest Pain: No Congestive Heart Failure: No Cirrhosis: Yes COPD: No Cerebrovascular Accident: No Diabetes: No Diminished Hearing: No Endocrine: Yes Gastrointestinal Disorders: Yes (HX OF UPPER GI BLEED;ESOPHAGEAL VARICES ; BLEEDING ULCERS) GERD: No Genitourinary: No Headaches: No Hepatitis: Yes (ALCOHOLIC HEPATITIS) Hiatal Hernia: Yes Heparin Induced Thrombocytopen: No Hypertension: No Immune Disorder: No Implanted Vascular Access Dvce: No Kidney Stones: No Musculoskeletal: No Neurologic: No Psychiatric: Yes Reproductive: No Respiratory: No Immunizations Current: Yes Migraines: No Radiation Therapy: No Renal Failure: No Seizures: No Sickle Cell Disease: No Sleep Apnea: No Thyroid Disease: Yes (Hypothyroidism) Ulcer: No ?: Not Menopausal: Yes Past Surgical History Abdominal Surgery: Yes (lap benjamin, hernia repair) AICD: No Body Medical Devices: NONE Cardiac Surgery: No Cholecystectomy: Yes (2006) Ear Surgery: No Endocrine Surgery: No Eye Surgery: No Genitourinary Surgery: No Gynecologic Surgery: No Hysterectomy: No Insulin Pump: No Joint Replacement: Yes (LEFT HIP REPLACEMENT) Neurologic Surgery: No Oral Surgery: No Pacemaker: No Thoracic Surgery: No Other Surgery: Yes (Cholecystectomy) Social History Alcohol Use: No (H/O ALCOHOLISM ) Tobacco Use: No Substance Use: Yes Allergies-Medications (Allergen,Severity, Reaction): Coded Allergies: Codeine (Verified Allergy, Severe, VOMITING, 02/03/17) MILD REACTION- VOMITING Morphine (Verified Allergy, Severe, PT DENIES, 02/03/17) MILD REACTION Aspirin (Verified Adverse Reaction, Severe, Bleeding, 02/03/17) STOMACH "BLEEDS" PER PT ; SEVERE REACTION Nortriptyline (Verified Adverse Reaction, Severe, Hallucinations, 02/03/17) vomiting ; INTERMEDIATE REACTION Reported Meds & Prescriptions Reported Meds & Active Scripts Active Aldactone (Spironolactone) 50 Mg Tab 50 Mg PO BID@ Xifaxan (Rifaximin) 550 Mg Tab 550 Mg PO BID Levothyroxine (Levothyroxine Sodium) 50 Mcg Tab 125 Mcg PO DAILY Reported Lactulose Liq (Lactulose) 10 Gm/15 Ml Soln 30 Ml PO BID PRN Pantoprazole (Pantoprazole Sodium) 40 Mg Tab 40 Mg PO DAILY Furosemide 40 Mg Tab 40 Mg PO DAILY Review of Systems Except as stated in HPI: all other systems reviewed are Neg Physical Exam Narrative GENERAL: Chronically ill-appearing female patient, ambulatory and in no acute distress SKIN: Focused skin assessment warm/dry. HEAD: Atraumatic. Normocephalic. EYES: Pupils equal and round. No scleral icterus. No injection or drainage. ENT: No nasal bleeding or discharge. Mucous membranes pink and moist. NECK: Trachea midline. No JVD. CARDIOVASCULAR: Regular rate and rhythm. No murmur appreciated. RESPIRATORY: No accessory muscle use. Clear to auscultation. Breath sounds equal bilaterally. GASTROINTESTINAL: Abdomen soft, nontender, ascitic in nature.. No rebound tenderness. No guarding. MUSCULOSKELETAL: No obvious deformities. No clubbing. No cyanosis. No edema. NEUROLOGICAL: Awake and alert. No obvious cranial nerve deficits. Motor grossly within normal limits. Normal speech. Data Data Last Documented VS Vital Signs Date Time Temp Pulse Resp B/P Pulse Ox O2 Delivery O2 Flow Rate FiO2 02/03/17 16:17 20 02/03/17 15:46 97.8 89 109/59 100 Room Air Orders Iv Access Insert/Monitor (02/03/17 16:24) Complete Blood Count With Diff (02/03/17 16:24) Comprehensive Metabolic Panel (02/03/17 16:24) Coag Profile (02/03/17 16:24) Us Abdomen Lower Limited (02/03/17 ) Potassium Chloride (Kcl) (02/03/17 17:30) Labs Laboratory Tests Test 02/03/17 16:35 White Blood Count 4.4 TH/MM3 Red Blood Count 3.49 MIL/MM3 Hemoglobin 11.6 GM/DL Hematocrit 34.2 % Mean Corpuscular Volume 98.1 FL Mean Corpuscular Hemoglobin 33.4 PG Mean Corpuscular Hemoglobin 34.0 % Concent Red Cell Distribution Width 15.8 % Platelet Count 116 TH/MM3 Mean Platelet Volume 7.1 FL Neutrophils (%) (Auto) 59.6 % Lymphocytes (%) (Auto) 21.4 % Monocytes (%) (Auto) 12.1 % Eosinophils (%) (Auto) 6.1 % Basophils (%) (Auto) 0.8 % Neutrophils # (Auto) 2.6 TH/MM3 Lymphocytes # (Auto) 0.9 TH/MM3 Monocytes # (Auto) 0.5 TH/MM3 Eosinophils # (Auto) 0.3 TH/MM3 Basophils # (Auto) 0.0 TH/MM3 CBC Comment DIFF FINAL Differential Comment Prothrombin Time 16.6 SEC Prothromb Time International 1.5 RATIO Ratio Activated Partial 32.5 SEC Thromboplast Time Sodium Level 136 MEQ/L Potassium Level 3.2 MEQ/L Chloride Level 102 MEQ/L Carbon Dioxide Level 23.9 MEQ/L Anion Gap 10 MEQ/L Blood Urea Nitrogen 6 MG/DL Creatinine 0.81 MG/DL Estimat Glomerular Filtration 75 ML/MIN Rate Random Glucose 137 MG/DL Calcium Level 7.7 MG/DL Total Bilirubin 4.6 MG/DL Aspartate Amino Transf 51 U/L (AST/SGOT) Alanine Aminotransferase 29 U/L (ALT/SGPT) Alkaline Phosphatase 191 U/L Total Protein 7.3 GM/DL Albumin 2.0 GM/DL MDM Medical Decision Making Medical Screen Exam Complete: Yes Emergency Medical Condition: Yes Medical Record Reviewed: Yes Differential Diagnosis Ascites versus alcoholic cirrhosis versus liver failure versus the left leg abnormality versus fluid overload Narrative Course 51-year-old female presents to the emergency department for evaluation of ascites. This is chronic and ongoing for the patient. She appears without distress. Her vital signs are stable. Laboratory Tests Test 02/03/17 16:35 White Blood Count 4.4 TH/MM3 Red Blood Count 3.49 MIL/MM3 Hemoglobin 11.6 GM/DL Hematocrit 34.2 % Mean Corpuscular Volume 98.1 FL Mean Corpuscular Hemoglobin 33.4 PG Mean Corpuscular Hemoglobin 34.0 % Concent Red Cell Distribution Width 15.8 % Platelet Count 116 TH/MM3 Mean Platelet Volume 7.1 FL Neutrophils (%) (Auto) 59.6 % Lymphocytes (%) (Auto) 21.4 % Monocytes (%) (Auto) 12.1 % Eosinophils (%) (Auto) 6.1 % Basophils (%) (Auto) 0.8 % Neutrophils # (Auto) 2.6 TH/MM3 Lymphocytes # (Auto) 0.9 TH/MM3 Monocytes # (Auto) 0.5 TH/MM3 Eosinophils # (Auto) 0.3 TH/MM3 Basophils # (Auto) 0.0 TH/MM3 CBC Comment DIFF FINAL Differential Comment Prothrombin Time 16.6 SEC Prothromb Time International 1.5 RATIO Ratio Activated Partial 32.5 SEC Thromboplast Time Sodium Level 136 MEQ/L Potassium Level 3.2 MEQ/L Chloride Level 102 MEQ/L Carbon Dioxide Level 23.9 MEQ/L Anion Gap 10 MEQ/L Blood Urea Nitrogen 6 MG/DL Creatinine 0.81 MG/DL Estimat Glomerular Filtration 75 ML/MIN Rate Random Glucose 137 MG/DL Calcium Level 7.7 MG/DL Total Bilirubin 4.6 MG/DL Aspartate Amino Transf 51 U/L (AST/SGOT) Alanine Aminotransferase 29 U/L (ALT/SGPT) Alkaline Phosphatase 191 U/L Total Protein 7.3 GM/DL Albumin 2.0 GM/DL Last Impressions Abdomen Ultrasound 02/03/17 0000 Signed Impressions: Service Date/Time: January 16:40 - CONCLUSION: Moderate amount of abdominal/pelvic ascites. Deepak Rhoades MD Patient's bilirubin is elevated, but similar to previous lab work. Liver enzymes are also elevated and this is to be expected. I discussed my attending physician who has reviewed the findings. Patient will be discharged with an outpatient order for ultrasound-guided paracentesis. 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
[2017-02-03] MEDS ORDERED: LACT10SO PO (16:25)
[2017-02-03 16:52] LABS: AUTOMATED NEUTROPHIL # 2.6 TH/MM3 (1.8-7.7); BASOPHIL % 0.8 % (0.0-2.0); EOSINOPHIL # 0.3 TH/MM3 (0-0.4); EOSINOPHIL % 6.1 % (0.0-4.0); HEMATOCRIT 34.2 % (35.0-46.0); HEMO FLAGS DIFF FINAL; LYMPH % 21.4 % (9.0-44.0); LYMPHOCYTE # 0.9 TH/MM3 (1.0-4.8); MEAN CELL VOLUME 98.1 FL (80.0-100.0); MEAN CORPUSCULAR HEMOGLOBIN 33.4 PG (27.0-34.0); MONO % 12.1 % (0.0-8.0); NEUT % 59.6 % (16.0-70.0); PLATELET COUNT 116 TH/MM3 (150-450); RED BLOOD COUNT 3.49 MIL/MM3 (4.00-5.30); RED CELL DISTRIBUTION WIDTH 15.8 % (11.6-17.2); WHITE BLOOD COUNT 4.4 TH/MM3 (4.0-11.0)
[2017-02-03 17:06] LABS: APTT (PATIENT) 32.5 SEC (24.3-30.1); INTERNATIONAL NORMALIZED RATIO 1.5 RATIO; PROTHROMBIN TIME - PATIENT 16.6 SEC (9.8-11.6)
--- NOTE | 2017-02-03 17:08 | RADRPT ---
EXAM DATE/TIME: 02/03/2017 16:40 [facility] COMPARISON: US GUIDED ABD PARACENTESIS, December 22, 2016, 7:42. US ABDOMEN - LOWER LIMITED, February 06, 2013, 12:30. INDICATIONS : Ascities. MEDICAL HISTORY : Arthritis. Cirrhosis. Hepatitis. Hypothyroidism. Asthma. Upper GI bleed. Esophageal varices. Anorexia . Hiatal hernia. Endocrine disorders. Depression. Anxiety. Thrombocytopenia. SURGICAL HISTORY : Cholecystectomy. EGD banding. Hernia repair. Left hip replacement. ENCOUNTER: Initial ACUITY: 1 day PAIN SCORE: 2/10 LOCATION: Abdomen. AREA EVALUATED: Abdomen. FINDINGS: Imaging of the abdomen and pelvis was performed to evaluate for ascites for possible paracentesis. T here is a moderate amount of ascites the abdomen. CONCLUSION: Moderate amount of abdominal/pelvic ascites. Deepak Rhoades MD on February 03, 2017 at 17:05 Board Certified Radiologist. This report was verified electronically.
[2017-02-03 17:12] LABS: ALT (GPT) 29 U/L (10-53); ANION GAP 10 MEQ/L (5-15); AST (GOT) 51 U/L (15-37); BICARBONATE 23.9 MEQ/L (21.0-32.0); BLOOD UREA NITROGEN 6 MG/DL (7-18); CHLORIDE 102 MEQ/L (98-107); GLOMERULAR FILTRATION RATE 75 ML/MIN (>89); POTASSIUM 3.2 MEQ/L (3.5-5.1); SODIUM (NA) 136 MEQ/L (136-145)
[2017-02-03 17:14] LABS: ALKALINE PHOSPHATASE 191 U/L (45-117); TOTAL BILIRUBIN ADULT 4.6 MG/DL (0.2-1.0)
[2017-02-03] MEDS ORDERED: POTASSIUM CHLORIDE 10 MEQ CONTROLLED RELEASE TAB PO ONE (17:30)
== END 2017-02-03 17:45 | disposition home or self-care (01) ==
LOC: NEPC 15:44
DX: K70.11 Alcoholic hepatitis with ascites (principal); K70.31 Alcoholic cirrhosis of liver with ascites; E87.6 Hypokalemia; E03.9 Hypothyroidism, unspecified; Z86.59 Personal history of other mental and behavioral disorders; Z87.19 Personal history of other diseases of the digestive system
CPT/HCPCS: 76705; 80053; 85025; 85610; 85730; 99284

== ENCOUNTER 2017-02-05 20:48 | Emergency (ER) | payer MEDICAID ==
[~2017-02-05] VITALS: Ht 162.6 cm; Wt 61.0 kg
[~2017-02-05 20:48] MED LIST changes: -LEVA500T20 PO
[2017-02-05 20:49] VITALS: BP 114/58; PULSE 100; RESP 18; TEMP 98.8; O2SAT 97
--- NOTE | 2017-02-05 21:08 | PD ---
HPI Chief Complaint: Abdominal Pain Time Seen by Provider: 21:08 Travel History International Travel<30 days: No Contact w/Intl Traveler<30days: No Traveled to known affect area: No History of Present Illness HPI 51 YO female with PMH of alcoholic liver failure presents to the ED for evaluation of belly pain, increased ascites. Patient states that she was seen here 2 days ago but her symptoms are "much worse" since that visit. She endorses difficulty breathing and distention of the abdomen. She denies lower extremity edema, fever, chills, nausea, vomiting. She endorses compliance with her spironolactone and furosemide. She has an appointment with Dr. Friedman for paracentesis in two days. PFSH Past Medical History Hx Anticoagulant Therapy: No Arthritis: Yes Asthma: Yes Autoimmune Disease: No Anxiety: Yes Depression: Yes Heart Rhythm Problems: No Cancer: No Cardiovascular Problems: No High Cholesterol: No Chemotherapy: No Chest Pain: No Congestive Heart Failure: No Cirrhosis: Yes COPD: No Cerebrovascular Accident: No Diabetes: No Diminished Hearing: No Endocrine: Yes Gastrointestinal Disorders: Yes (HX OF UPPER GI BLEED;ESOPHAGEAL VARICES ; BLEEDING ULCERS) GERD: No Genitourinary: No Headaches: No Hepatitis: Yes (ALCOHOLIC HEPATITIS) Hiatal Hernia: Yes Heparin Induced Thrombocytopen: No Hypertension: No Immune Disorder: No Implanted Vascular Access Dvce: No Kidney Stones: No Musculoskeletal: No Neurologic: No Psychiatric: Yes Reproductive: No Respiratory: No Immunizations Current: Yes Migraines: No Radiation Therapy: No Renal Failure: No Seizures: No Sickle Cell Disease: No Sleep Apnea: No Thyroid Disease: Yes (Hypothyroidism) Ulcer: No ?: Not Menopausal: Yes Past Surgical History Abdominal Surgery: Yes (lap benjamin, hernia repair) AICD: No Body Medical Devices: NONE Cardiac Surgery: No Cholecystectomy: Yes (2006) Ear Surgery: No Endocrine Surgery: No Eye Surgery: No Genitourinary Surgery: No Gynecologic Surgery: No Hysterectomy: No Insulin Pump: No Joint Replacement: Yes (LEFT HIP REPLACEMENT) Neurologic Surgery: No Oral Surgery: No Pacemaker: No Thoracic Surgery: No Other Surgery: Yes (Cholecystectomy) Social History Alcohol Use: No (H/O ALCOHOLISM ) Tobacco Use: No Substance Use: Yes Allergies-Medications (Allergen,Severity, Reaction): Coded Allergies: Codeine (Verified Allergy, Severe, VOMITING, 02/05/17) MILD REACTION- VOMITING Morphine (Verified Allergy, Severe, PT DENIES, 02/05/17) MILD REACTION Aspirin (Verified Adverse Reaction, Severe, Bleeding, 02/05/17) STOMACH "BLEEDS" PER PT ; SEVERE REACTION Nortriptyline (Verified Adverse Reaction, Severe, Hallucinations, 02/05/17) vomiting ; INTERMEDIATE REACTION Reported Meds & Prescriptions Reported Meds & Active Scripts Active Roxicodone (Oxycodone HCl) 5 Mg Tab 5 Mg PO Q8HR USE SPARRINGLY POSSIBLE Aldactone (Spironolactone) 50 Mg Tab 50 Mg PO BID@ Xifaxan (Rifaximin) 550 Mg Tab 550 Mg PO BID Levothyroxine (Levothyroxine Sodium) 50 Mcg Tab 125 Mcg PO DAILY Reported Lactulose Liq (Lactulose) 10 Gm/15 Ml Soln 30 Ml PO BID PRN Pantoprazole (Pantoprazole Sodium) 40 Mg Tab 40 Mg PO DAILY Furosemide 40 Mg Tab 40 Mg PO DAILY Review of Systems Except as stated in HPI: all other systems reviewed are Neg Physical Exam Narrative GENERAL: Well-nourished, well-developed patient. SKIN: Focused skin assessment warm/dry. HEAD: Normocephalic. EYES: No scleral icterus. No injection or drainage. NECK: Supple, trachea midline. No JVD or lymphadenopathy. CARDIOVASCULAR: Regular rate and rhythm without murmurs, gallops, or rubs. RESPIRATORY: Breath sounds clear and equal bilaterally. No accessory muscle use. GASTROINTESTINAL: Abdomen soft, distended, positive fluid wave shift. MUSCULOSKELETAL: No cyanosis, or edema. BACK: Nontender without obvious deformity. No CVA tenderness. Data Data Last Documented VS Vital Signs Date Time Temp Pulse Resp B/P Pulse Ox O2 Delivery O2 Flow Rate FiO2 02/05/17 21:22 91 18 100 Room Air 02/05/17 20:49 98.8 114/58 Orders Complete Blood Count With Diff (02/05/17 21:15) Comprehensive Metabolic Panel (02/05/17 21:15) Prothrombin Time / Inr (Pt) (02/05/17 21:15) Act Partial Throm Time (Ptt) (02/05/17 21:15) Sodium Chloride 0.9% Flush (Ns Flush) (02/05/17 21:15) Electrocardiogram (02/05/17 21:15) Ammonia (02/05/17 21:15) Chest, Single Ap (02/05/17 ) Ondansetron Odt (Zofran Odt) (02/05/17 22:00) Oxycodone-Acetamin 5-325 Mg (Percocet (02/05/17 22:00) Calcium Carbonate Chew (Tums Chew) (02/05/17 22:45) Labs Laboratory Tests Test 02/05/17 21:30 White Blood Count 4.6 TH/MM3 Red Blood Count 3.09 MIL/MM3 Hemoglobin 10.0 GM/DL Hematocrit 30.5 % Mean Corpuscular Volume 98.7 FL Mean Corpuscular Hemoglobin 32.3 PG Mean Corpuscular Hemoglobin 32.7 % Concent Red Cell Distribution Width 15.9 % Platelet Count 114 TH/MM3 Mean Platelet Volume 7.3 FL Neutrophils (%) (Auto) 52.5 % Lymphocytes (%) (Auto) 22.7 % Monocytes (%) (Auto) 16.2 % Eosinophils (%) (Auto) 8.2 % Basophils (%) (Auto) 0.4 % Neutrophils # (Auto) 2.4 TH/MM3 Lymphocytes # (Auto) 1.1 TH/MM3 Monocytes # (Auto) 0.8 TH/MM3 Eosinophils # (Auto) 0.4 TH/MM3 Basophils # (Auto) 0.0 TH/MM3 CBC Comment DIFF FINAL Differential Comment Prothrombin Time 16.6 SEC Prothromb Time International 1.5 RATIO Ratio Activated Partial 33.8 SEC Thromboplast Time Sodium Level 134 MEQ/L Potassium Level 4.2 MEQ/L Chloride Level 103 MEQ/L Carbon Dioxide Level 22.1 MEQ/L Anion Gap 9 MEQ/L Blood Urea Nitrogen 5 MG/DL Creatinine 0.73 MG/DL Estimat Glomerular Filtration 84 ML/MIN Rate Random Glucose 125 MG/DL Calcium Level 7.2 MG/DL Protein Corrected Calcium 7.5 MG/DL Total Bilirubin 2.8 MG/DL Aspartate Amino Transf 54 U/L (AST/SGOT) Alanine Aminotransferase 26 U/L (ALT/SGPT) Alkaline Phosphatase 182 U/L Ammonia 127 MCMOL/L Total Protein 6.5 GM/DL Albumin 1.8 GM/DL [facility] Medical Decision Making Medical Screen Exam Complete: Yes Emergency Medical Condition: Yes Interpretation(s) EKG rate 93, sinus rhythm. Normal intervals. Normal axis. No ST changes. Reviewed by Dr. Tellez. Differential Diagnosis Ascites versus spontaneous bacterial peritonitis versus pleural effusion versus other Narrative Course 51 YO female with PMH of alcoholic liver failure presents to the ED for evaluation of belly pain, increased ascites. Patient states that she was seen here 2 days ago but her symptoms are "much worse" since that visit. She endorses difficulty breathing and distention of the abdomen. She denies lower extremity edema, fever, chills, nausea, vomiting. She endorses compliance with her spironolactone and furosemide. She has an appointment with Dr. Tam for paracentesis in 2 days. Patient afebrile on presentation. Belly is tense with a positive fluid wave shift. Mild extra work of breathing but the lungs are clear to auscultation bilaterally. Reviewed the patient's record reveals she had lab work drawn 2 days ago. Labs today show protein corrected calcium of 7.2. Patient was administered 1g calcium chew. Ammonia mildly elevated at 127. Patient on lactulose at home. Patient was administered sublingual Zofran and by mouth Percocet. Chest x-ray without acute cardiopulmonary process. Dr. Ott discussed outpatient paracentesis with the patient. She is stable and discharged for outpatient paracentesis as planned. Diagnosis Primary Impression: Abdominal pain Qualified Code: R10.9 - Abdominal pain, unspecified abdominal location Additional Impression: Ascites Qualified Code: K70.31 - Ascites due to alcoholic cirrhosis Referrals: Dillon Burnett MD Patient Instructions: Ascites (ED), General Instructions Additional Instructions: Follow-up with Dr. Burnett as planned. Return to the ED for any urgent or emergent medical condition. Scripts Oxycodone (Roxicodone)5 Mg Tab5 Mg PO Q8HR #10 TAB Ref 0 USE SPARRINGLY POSSIBLE Prov:Ravi Tellez MD 02/05/17 Disposition: 01 DISCHARGE HOME Condition: Stable Saloni Jenkins Feb 05, 2017 21:08
[2017-02-05] MEDS ORDERED: SODIUM CHLORIDE 0.9% FLUSH 10 ML FLUSH IV FLUSH PRN (21:15)
[2017-02-05 21:22] VITALS: PULSE 91; RESP 18; O2SAT 100
[2017-02-05 21:44] LABS: AUTOMATED NEUTROPHIL # 2.4 TH/MM3 (1.8-7.7); BASOPHIL % 0.4 % (0.0-2.0); EOSINOPHIL # 0.4 TH/MM3 (0-0.4); EOSINOPHIL % 8.2 % (0.0-4.0); HEMATOCRIT 30.5 % (35.0-46.0); HEMO FLAGS DIFF FINAL; LYMPH % 22.7 % (9.0-44.0); LYMPHOCYTE # 1.1 TH/MM3 (1.0-4.8); MEAN CELL VOLUME 98.7 FL (80.0-100.0); MEAN CORPUSCULAR HEMOGLOBIN 32.3 PG (27.0-34.0); MEAN CORPUSCULAR HGB CONC 32.7 % (32.0-36.0); MONO % 16.2 % (0.0-8.0); NEUT % 52.5 % (16.0-70.0); PLATELET COUNT 114 TH/MM3 (150-450); RED BLOOD COUNT 3.09 MIL/MM3 (4.00-5.30); RED CELL DISTRIBUTION WIDTH 15.9 % (11.6-17.2); WHITE BLOOD COUNT 4.6 TH/MM3 (4.0-11.0)
--- NOTE | 2017-02-05 21:48 | RADRPT ---
EXAM DATE/TIME: 02/05/2017 21:26 [facility] COMPARISON: CHEST SINGLE AP, December 22, 2016, 3:21. INDICATIONS : Shortness of breath. MEDICAL HISTORY : None. SURGICAL HISTORY : Cholecystectomy. ENCOUNTER: Initial ACUITY: 1 day PAIN SCORE: 9/10 LOCATION: Left lower chest FINDINGS: Single AP view of the chest. The lungs are clear. Cardiomediastinal silhouette within normal limits. No evidence of pleural effusion or pneumothorax. CONCLUSION: No acute cardiopulmonary disease identified. Dario Langford MD on February 05, 2017 at 21:46 Board Certified Radiologist. This report was verified electronically.
--- NOTE | 2017-02-05 21:52 | PD ---
Data Data Last Documented VS Vital Signs Date Time Temp Pulse Resp B/P Pulse Ox O2 Delivery O2 Flow Rate FiO2 02/05/17 21:22 91 18 100 Room Air 02/05/17 20:49 98.8 114/58 Orders Complete Blood Count With Diff (02/05/17 21:15) Comprehensive Metabolic Panel (02/05/17 21:15) Prothrombin Time / Inr (Pt) (02/05/17 21:15) Act Partial Throm Time (Ptt) (02/05/17 21:15) Sodium Chloride 0.9% Flush (Ns Flush) (02/05/17 21:15) Electrocardiogram (02/05/17 21:15) Ammonia (02/05/17 21:15) Chest, Single Ap (02/05/17 ) Ondansetron Odt (Zofran Odt) (02/05/17 22:00) Oxycodone-Acetamin 5-325 Mg (Percocet (02/05/17 22:00) Labs Laboratory Tests Test 02/05/17 21:30 White Blood Count 4.6 TH/MM3 Red Blood Count 3.09 MIL/MM3 Hemoglobin 10.0 GM/DL Hematocrit 30.5 % Mean Corpuscular Volume 98.7 FL Mean Corpuscular Hemoglobin 32.3 PG Mean Corpuscular Hemoglobin 32.7 % Concent Red Cell Distribution Width 15.9 % Platelet Count 114 TH/MM3 Mean Platelet Volume 7.3 FL Neutrophils (%) (Auto) 52.5 % Lymphocytes (%) (Auto) 22.7 % Monocytes (%) (Auto) 16.2 % Eosinophils (%) (Auto) 8.2 % Basophils (%) (Auto) 0.4 % Neutrophils # (Auto) 2.4 TH/MM3 Lymphocytes # (Auto) 1.1 TH/MM3 Monocytes # (Auto) 0.8 TH/MM3 Eosinophils # (Auto) 0.4 TH/MM3 Basophils # (Auto) 0.0 TH/MM3 CBC Comment DIFF FINAL Differential Comment Prothrombin Time 16.6 SEC Prothromb Time International 1.5 RATIO Ratio Activated Partial 33.8 SEC Thromboplast Time Sodium Level 134 MEQ/L Potassium Level 4.2 MEQ/L Chloride Level 103 MEQ/L Carbon Dioxide Level 22.1 MEQ/L Anion Gap 9 MEQ/L Blood Urea Nitrogen 5 MG/DL Creatinine 0.73 MG/DL Estimat Glomerular Filtration 84 ML/MIN Rate Random Glucose 125 MG/DL Calcium Level 7.2 MG/DL Protein Corrected Calcium 7.5 MG/DL Total Bilirubin 2.8 MG/DL Aspartate Amino Transf 54 U/L (AST/SGOT) Alanine Aminotransferase 26 U/L (ALT/SGPT) Alkaline Phosphatase 182 U/L Ammonia 127 MCMOL/L Total Protein 6.5 GM/DL Albumin 1.8 GM/DL [facility] Supervised Visit with SHALA: Yes Narrative Course I, Dr. Tellez, have reviewed the advance practice practitioner's documentation and am in agreement, met with the patient face to face, made the diagnosis, and the medical decision making was done by me. *My assessment and Findings: And is a 51-year-old female with a history of alcoholic cirrhosis and recurrent ascites presents emergency Department with recurrent ascites. She second visit to the emergency department this week. Patient my physical exam is a fair amount of ascites but certainly her abdomen is not tense. It is benign and soft. No peritoneal signs. She is afebrile. Labs were obtained today and certainly she has a fair amount of hypoalbuminemia with the albumin of 1.8. Her ammonia was 127 and a time of the patient is alert and awake and oriented at this point. Chest x-ray was obtained here because her primary concern is that it hurts her when she takes a deep breath. Chest x-ray is clear. She is in no distress at all. She was given pain medicine. I discussed with her that at this point it would be safer for her to have ultrasonic guided paracentesis. Discussed with her continued use of her lactulose discussed return to ED criteria. Med/Other Pt SpecificInfo: Prescription(s) given Scripts Oxycodone (Roxicodone)5 Mg Tab5 Mg PO Q8HR #10 TAB Ref 0 USE SPARRINGLY POSSIBLE Prov:Ravi Tellez MD 02/05/17 Disposition: 01 DISCHARGE HOME Condition: Stable Ravi Tellez MD Feb 05, 2017 21:52
[2017-02-05 21:54] LABS: APTT (PATIENT) 33.8 SEC (24.3-30.1); INTERNATIONAL NORMALIZED RATIO 1.5 RATIO; PROTHROMBIN TIME - PATIENT 16.6 SEC (9.8-11.6)
[2017-02-05] MEDS ORDERED: ONDANSETRON ODT 4 MG TAB PO ONE (22:00)
[2017-02-05] MEDS ORDERED: oxyCODONE/ACETAMINOPHEN 5 MG/325 MG TAB PO ONE (22:00)
[2017-02-05 22:06] LABS: BICARBONATE 22.1 MEQ/L (21.0-32.0); CALCIUM-PROTEIN CORRECTED 7.5 MG/DL (8.5-10.1); POTASSIUM 4.2 MEQ/L (3.5-5.1); TOTAL BILIRUBIN ADULT 2.8 MG/DL (0.2-1.0)
[2017-02-05] MEDS ORDERED: OXYC1TAB13 PO (22:31)
[2017-02-05] MEDS ORDERED: CALCIUM CARBONATE 500 MG CHEWABLE TAB CHEW ONE (22:45)
--- NOTE | 2017-02-06 12:23 | EKG ---
Date Performed: 02/05/2017 Time Performed: 21:27:04 PTAGE: 51 years EKG: Sinus rhythm NORMAL ECG PREVIOUS TRACING : 12/22/2016 03.59 Compared to prior tracing no significant change DOCTOR: Enrike Main Interpretating Date/Time 02/06/2017 12:21:41
== END 2017-02-05 22:56 | disposition home or self-care (01) ==
LOC: NEPC 20:48
DX: K70.31 Alcoholic cirrhosis of liver with ascites (principal); E88.09 Other disorders of plasma-protein metabolism, not elsewhere classified; K70.40 Alcoholic hepatic failure without coma; K70.11 Alcoholic hepatitis with ascites; M13.88 Other specified arthritis, other site; J45.909 Unspecified asthma, uncomplicated; F41.9 Anxiety disorder, unspecified; E03.9 Hypothyroidism, unspecified; Z79.899 Other long term (current) drug therapy
CPT/HCPCS: 71010; 80053; 82140; 85025; 85610; 85730; 93005; 99285

== ENCOUNTER 2017-02-08 09:58 | Day surgery (SDC) | payer MEDICAID ==
[~2017-02-08 09:58] MED LIST changes: +OXYC1TAB13 PO
[2017-02-08] MEDS ORDERED: ALBUMIN HUMAN 25% 25 GM/100 ML BAGP IV ONE (12:30)
[2017-02-08 12:50] VITALS: BP 102/57; PULSE 88; RESP 18; TEMP 97.9; O2SAT 99
[2017-02-08 13:20] VITALS: BP 112/72; PULSE 68; RESP 20; O2SAT 99
--- NOTE | 2017-02-08 13:54 | RADRPT ---
EXAM DATE/TIME: 02/08/2017 11:30 [facility] COMPARISON: US GUIDED ABD PARACENTESIS, January 06, 2017, 8:04. INDICATIONS : Ascites. MEDICAL HISTORY : Hypothyroidism. Hernia, hiatal. Arthritis. Asthma. Upper GI bleed. Bleeding ulcers. Esophageal varice s. Anorexia. Bulimia. Cirrhosis. Alcoholic hepatitis. Thrombocytopenia. Depression. Anxiety. Substanc e use. SURGICAL HISTORY : Cholecystectomy EGD banding. Hernia repair. Left hip replacement. Blood transfusions. ENCOUNTER: Subsequent ACUITY: 1 month PAIN SCORE: 8/10 LOCATION: Left lower quadrant FLUID: Total volume of 3,500 cc of clear, yellow fluid was removed. Fluid was discarded. Paracentesis was therapeutic only. Post procedure scanning reveals no hematoma or other complication. TECHNIQUE: 1. Ultrasound guidance for abdominal paracentesis. 2. Paracentesis. The risks, benefits, and alternatives to ultrasound guided paracentesis were explained to the patient in detail including the risk of bleeding and infection. Written and verbal informed consent was obt ained. With the patient on the ultrasound table, ultrasound imaging was used to select the most appropriate approach for paracentesis. Overlying skin was prepped and draped in the usual sterile fashion and wi th a local anesthetic, a dermatotomy was made with an 11 blade scalpel. A 6 [place] [id number] ca theter was introduced into the peritoneal cavity and fluid was collected. The patient tolerated the procedure well and left the ultrasound suite in stable condition. CONCLUSION: Uncomplicated ultrasound guided paracentesis. Ravi Russo MD on February 08, 2017 at 13:53 Board Certified Radiologist. This report was verified electronically.
== END 2017-02-08 13:30 | disposition home or self-care (01) ==
LOC: HRAD 09:58 → HRIP 09:59 → HRAD 13:30
PROVIDERS: ATTEND Emergency Medicine Emergency Medical Services
DX: K70.31 Alcoholic cirrhosis of liver with ascites (principal); F10.20 Alcohol dependence, uncomplicated; K70.10 Alcoholic hepatitis without ascites; E03.9 Hypothyroidism, unspecified; J45.909 Unspecified asthma, uncomplicated; F32.9 Major depressive disorder, single episode, unspecified; F41.9 Anxiety disorder, unspecified; D69.6 Thrombocytopenia, unspecified; R63.0 Anorexia
CPT/HCPCS: 49083; C1729

== ENCOUNTER 2017-02-12 11:23 | Emergency (ER) | payer MEDICAID ==
[~2017-02-12] VITALS: Ht 162.6 cm; Wt 52.7 kg
[2017-02-12 11:30] VITALS: BP 100/52; PULSE 107; RESP 15; TEMP 98.4; O2SAT 99
--- NOTE | 2017-02-12 12:20 | PD ---
HPI Chief Complaint: Abnormal Results Time Seen by Provider: 12:06 Travel History International Travel<30 days: No Contact w/Intl Traveler<30days: No Traveled to known affect area: No History of Present Illness HPI Patient presents with concerns of elevated ammonia levels. Diagnosed with end- stage liver disease 4 years ago. Receives paracentesis to 3 weeks. Reports undergoing this procedure on Tuesday when she was given a sleep aid. States she slept through her treatment to reduce her ammonia levels on and has become more lethargic since. Denies any nausea vomiting diarrhea or fever. No new rashes. Denies any alcohol use. PFSH Past Medical History Hx Anticoagulant Therapy: No Arthritis: Yes Asthma: Yes Autoimmune Disease: No Anxiety: Yes Depression: Yes Heart Rhythm Problems: No Cancer: No Cardiovascular Problems: No High Cholesterol: No Chemotherapy: No Chest Pain: No Congestive Heart Failure: No Cirrhosis: Yes COPD: No Cerebrovascular Accident: No Diabetes: No Diminished Hearing: No Endocrine: Yes Gastrointestinal Disorders: Yes (HX OF UPPER GI BLEED;ESOPHAGEAL VARICES ; BLEEDING ULCERS) GERD: No Genitourinary: No Headaches: No Hepatitis: Yes (ALCOHOLIC HEPATITIS) Hiatal Hernia: Yes Heparin Induced Thrombocytopen: No Hypertension: No Immune Disorder: No Implanted Vascular Access Dvce: No Kidney Stones: No Musculoskeletal: No Neurologic: No Psychiatric: Yes Reproductive: No Respiratory: No Immunizations Current: Yes Migraines: No Radiation Therapy: No Renal Failure: No Seizures: No Sickle Cell Disease: No Sleep Apnea: No Thyroid Disease: Yes (Hypothyroidism) Ulcer: No Menopausal: Yes Past Surgical History Abdominal Surgery: Yes (lap benjamin, hernia repair) AICD: No Body Medical Devices: NONE Cardiac Surgery: No Cholecystectomy: Yes (2006) Ear Surgery: No Endocrine Surgery: No Eye Surgery: No Genitourinary Surgery: No Gynecologic Surgery: No Hysterectomy: No Insulin Pump: No Joint Replacement: Yes (LEFT HIP REPLACEMENT) Neurologic Surgery: No Oral Surgery: No Pacemaker: No Thoracic Surgery: No Other Surgery: Yes (Cholecystectomy) Social History Alcohol Use: No (H/O ALCOHOLISM ) Tobacco Use: No Substance Use: Yes Allergies-Medications (Allergen,Severity, Reaction): Coded Allergies: codeine (Unverified Allergy, Severe, VOMITING, 02/12/17) MILD REACTION- VOMITING morphine (Unverified Allergy, Severe, PT DENIES, 02/12/17) MILD REACTION aspirin (Unverified Adverse Reaction, Severe, Bleeding, 02/12/17) STOMACH "BLEEDS" PER PT ; SEVERE REACTION nortriptyline (Unverified Adverse Reaction, Severe, Hallucinations, ) vomiting ; INTERMEDIATE REACTION Reported Meds & Prescriptions Reported Meds & Active Scripts Active Roxicodone (Oxycodone HCl) 5 Mg Tab 5 Mg PO Q8HR USE SPARRINGLY POSSIBLE Aldactone (Spironolactone) 50 Mg Tab 50 Mg PO BID@ Xifaxan (Rifaximin) 550 Mg Tab 550 Mg PO BID Levothyroxine (Levothyroxine Sodium) 50 Mcg Tab 125 Mcg PO DAILY Reported Lactulose Liq (Lactulose) 10 Gm/15 Ml Soln 30 Ml PO BID PRN Pantoprazole (Pantoprazole Sodium) 40 Mg Tab 40 Mg PO DAILY Furosemide 40 Mg Tab 40 Mg PO DAILY Review of Systems General / Constitutional: No: Fever Eyes: No: Visual changes HENT: No: Headaches Cardiovascular: No: Chest Pain or Discomfort Respiratory: No: Shortness of Breath Gastrointestinal: No: Abdominal Pain Genitourinary: No: Dysuria Musculoskeletal: No: Pain Skin: No Rash Neurologic: No: Weakness Psychiatric: No: Depression Endocrine: No: Polydipsia Hematologic/Lymphatic: No: Easy Bruising Physical Exam Narrative GENERAL: Failure to thrive SKIN: Focused skin assessment warm/dry. HEAD: Normocephalic. EYES: No scleral icterus. No injection or drainage. NECK: Supple, trachea midline. No JVD or lymphadenopathy. CARDIOVASCULAR: Regular rate and rhythm without murmurs, gallops, or rubs. RESPIRATORY: Breath sounds equal bilaterally. No accessory muscle use. GASTROINTESTINAL: Abdomen soft, non-tender, minimally distended no hepatomegaly MUSCULOSKELETAL: No cyanosis, or edema. BACK: Nontender without obvious deformity. No CVA tenderness. Data Data Last Documented VS Vital Signs Date Time Temp Pulse Resp B/P Pulse Ox O2 Delivery O2 Flow Rate FiO2 02/12/17 13:48 100 16 99 Room Air 02/12/17 13:38 104/46 02/12/17 11:30 98.4 Orders Comprehensive Metabolic Panel (02/12/17 12:06) Complete Blood Count With Diff (02/12/17 12:06) Urinalysis - C+S If Indicated (02/12/17 12:06) Ammonia (02/12/17 12:06) Thyroid Stimulating Hormone (02/12/17 12:20) Labs Laboratory Tests Test 02/12/17 02/12/17 12:30 12:40 Urine Collection Type CLEAN CATCH Urine Color YELLOW Urine Turbidity CLEAR Urine pH 5.5 Urine Specific [place] 1.006 Urine Protein NEG mg/dL Urine Glucose (UA) NEG mg/dL Urine Ketones NEG mg/dL Urine Occult Blood NEG Urine Nitrite NEG Urine Bilirubin NEG Urine Leukocyte Esterase NEG Urine WBC 0-2 /hpf Urine Squamous Epithelial 0-5 /hpf Cells Microscopic Urinalysis Comment CULT NOT INDICATED Urine Collection Time 12:30 White Blood Count 6.4 TH/MM3 Red Blood Count 3.59 MIL/MM3 Hemoglobin 11.7 GM/DL Hematocrit 34.0 % Mean Corpuscular Volume 94.9 FL Mean Corpuscular Hemoglobin 32.7 PG Mean Corpuscular Hemoglobin 34.5 % Concent Red Cell Distribution Width 15.9 % Platelet Count 148 TH/MM3 Mean Platelet Volume 6.9 FL Neutrophils (%) (Auto) 65.5 % Lymphocytes (%) (Auto) 15.8 % Monocytes (%) (Auto) 12.4 % Eosinophils (%) (Auto) 1.6 % Basophils (%) (Auto) 4.7 % Neutrophils # (Auto) 4.1 TH/MM3 Lymphocytes # (Auto) 1.0 TH/MM3 Monocytes # (Auto) 0.8 TH/MM3 Eosinophils # (Auto) 0.1 TH/MM3 Basophils # (Auto) 0.3 TH/MM3 CBC Comment DIFF FINAL Differential Comment Sodium Level 127 MEQ/L Potassium Level 3.3 MEQ/L Chloride Level 94 MEQ/L Carbon Dioxide Level 22.4 MEQ/L Anion Gap 11 MEQ/L Blood Urea Nitrogen 8 MG/DL Creatinine 0.85 MG/DL Estimat Glomerular Filtration 71 ML/MIN Rate Random Glucose 111 MG/DL Calcium Level 8.3 MG/DL Total Bilirubin 4.1 MG/DL Aspartate Amino Transf 60 U/L (AST/SGOT) Alanine Aminotransferase 33 U/L (ALT/SGPT) Alkaline Phosphatase 186 U/L Ammonia 67 MCMOL/L Total Protein 7.5 GM/DL Albumin 2.0 GM/DL Thyroid Stimulating Hormone 0.006 uIU/ML 3rd Gen [facility] Medical Decision Making Medical Screen Exam Complete: Yes Emergency Medical Condition: Yes Differential Diagnosis Liver failure, hyperammonemia, sepsis, UTI Narrative Course Assessment and plan discussed with patient and at bedside. Labs discussed. Ammonia levels discussed. Diagnosis Primary Impression: Hyperammonemia Additional Impression: Alcoholic cirrhosis of liver Qualified Code: K70.31 - Alcoholic cirrhosis of liver with ascites Patient Instructions: General Instructions Additional Instructions: Encouraged to continue lactulose as directed. Encouraged to continue/follow-up with specialists. Return to emergency room with any onset of new symptoms. Med/Other Pt SpecificInfo: No Meds Exist/No RX given Disposition: 01 DISCHARGE HOME Condition: Good Alonso Salas MD Feb 12, 2017 12:20
[2017-02-12 12:30] VITALS: BP 97/48; PULSE 99; RESP 16; O2SAT 100
[2017-02-12 12:49] LABS: AUTOMATED NEUTROPHIL # 4.1 TH/MM3 (1.8-7.7); BASOPHIL # 0.3 TH/MM3 (0-0.2); BASOPHIL % 4.7 % (0.0-2.0); EOSINOPHIL # 0.1 TH/MM3 (0-0.4); EOSINOPHIL % 1.6 % (0.0-4.0); HEMO FLAGS DIFF FINAL; LYMPH % 15.8 % (9.0-44.0); MEAN CELL VOLUME 94.9 FL (80.0-100.0); MEAN CORPUSCULAR HEMOGLOBIN 32.7 PG (27.0-34.0); MEAN CORPUSCULAR HGB CONC 34.5 % (32.0-36.0); MONO % 12.4 % (0.0-8.0); NEUT % 65.5 % (16.0-70.0); PLATELET COUNT 148 TH/MM3 (150-450); RED BLOOD COUNT 3.59 MIL/MM3 (4.00-5.30); RED CELL DISTRIBUTION WIDTH 15.9 % (11.6-17.2); WHITE BLOOD COUNT 6.4 TH/MM3 (4.0-11.0)
[2017-02-12 12:50] LABS: BLOOD, URINE NEG (NEG); GLUCOSE,URINE NEG (NEG); KETONE, URINE NEG (NEG); NITRITE,URINE NEG (NEG); PH, URINE 5.5 (5.0-8.5)
[2017-02-12 12:55] VITALS: BP 93/47; PULSE 99; RESP 16; O2SAT 100
[2017-02-12 12:56] LABS: COMMENT (UR) CULT NOT INDICATED; CULTURE IF INDICATED CULT NOT INDICATED; METHOD OF COLLECTION CLEAN CATCH; SQUAMOUS EPITHELIAL CELL URINE 0-5 /hpf (0-5); URINE COLOR YELLOW (YELLW/STRAW); WBC, URINE 0-2 /hpf (0-5)
[2017-02-12 13:00] LABS: CHLORIDE 94 MEQ/L (98-107); POTASSIUM 3.3 MEQ/L (3.5-5.1); SODIUM (NA) 127 MEQ/L (136-145)
[2017-02-12 13:04] LABS: ANION GAP 11 MEQ/L (5-15); BICARBONATE 22.4 MEQ/L (21.0-32.0); BLOOD UREA NITROGEN 8 MG/DL (7-18)
[2017-02-12 13:07] LABS: ALT (GPT) 33 U/L (10-53); AST (GOT) 60 U/L (15-37); GLOMERULAR FILTRATION RATE 71 ML/MIN (>89)
[2017-02-12 13:08] LABS: TOTAL BILIRUBIN ADULT 4.1 MG/DL (0.2-1.0)
[2017-02-12 13:10] LABS: ALKALINE PHOSPHATASE 186 U/L (45-117)
[2017-02-12 13:38] VITALS: BP 104/46; PULSE 101; RESP 16; O2SAT 100
[2017-02-12 14:32] VITALS: BP 100/53
== END 2017-02-12 14:35 | disposition home or self-care (01) ==
LOC: PHED 11:23
DX: E72.20 Disorder of urea cycle metabolism, unspecified (principal); K70.31 Alcoholic cirrhosis of liver with ascites; E03.9 Hypothyroidism, unspecified
CPT/HCPCS: 80053; 81001; 82140; 84443; 85025; 99283

== ENCOUNTER 2017-02-15 05:28 | Inpatient (IN) | payer MEDICAID ==
[~2017-02-15] VITALS: Ht 162.6 cm; Wt 60.4 kg
[2017-02-15] VITALS (9 sets, daily range): BP systolic 104–124; BP diastolic 55–83; PULSE 86–102; RESP 14–20; TEMP 96.7–98.2; O2SAT 96–100
[2017-02-15] MEDS ORDERED: SODIUM CHLOR 0.9% 1000 ML INJ 1,000 ML IV SCH (06:00)
[2017-02-15] MEDS ORDERED: ONDANSETRON HCL 4 MG/2 ML VIAL IV ONE ×2 (06:00→07:00)
--- NOTE | 2017-02-15 06:08 | PD ---
HPI Chief Complaint: GI Complaint Time Seen by Provider: 05:42 Travel History International Travel<30 days: No Contact w/Intl Traveler<30days: No Traveled to known affect area: No History of Present Illness HPI The patient is a 51-year-old female, frequent visitor to this emergency department, who has alcoholic cirrhosis and has had intractable vomiting since . She came in on Tuesday, 2 days ago and was sent home. Her states she cannot handle even clear liquids and vomits even water. She gave up drinking alcohol for 9 years ago. The vomiting has caused her abdominal pain which she states is a 10 over 10. The abdominal pain is in the midline epigastric region. She denies any blood in the vomitus or stool. She denies any fever. She has been unable to take the Zofran pills that she was prescribed. She is followed by Dr. Vo as her primary care physician and Dr. Reed is her manager technical training. She claims her abdominal pain is a 10 over 10 PFSH Past Medical History Hx Anticoagulant Therapy: No Arthritis: Yes Asthma: Yes Autoimmune Disease: No Anxiety: Yes Depression: Yes Heart Rhythm Problems: No Cancer: No Cardiovascular Problems: No High Cholesterol: No Chemotherapy: No Chest Pain: No Congestive Heart Failure: No Cirrhosis: Yes (end stage) COPD: No Cerebrovascular Accident: No Diabetes: No Diminished Hearing: No Endocrine: Yes Gastrointestinal Disorders: Yes (HX OF UPPER GI BLEED;ESOPHAGEAL VARICES ; BLEEDING ULCERS) GERD: No Genitourinary: No Headaches: No Hepatitis: Yes (ALCOHOLIC HEPATITIS) Hiatal Hernia: Yes Heparin Induced Thrombocytopen: No Hypertension: No Immune Disorder: No Implanted Vascular Access Dvce: No Kidney Stones: No Medical other: Yes (ESOPHAGEAL VARICES; LIVER CIRRHOSIS; THROMBOCYTOPENIA ;) Musculoskeletal: No Neurologic: No Psychiatric: Yes Reproductive: No Respiratory: No Immunizations Current: Yes Migraines: No Radiation Therapy: No Renal Failure: No Seizures: No Sickle Cell Disease: No Sleep Apnea: No Thyroid Disease: Yes (Hypothyroidism) Ulcer: No Tetanus Vaccination: Unknown Influenza Vaccination: Yes ?: Not Menopausal: Yes Past Surgical History Abdominal Surgery: Yes (lap benjamin,umbilical hernia repair) AICD: No Body Medical Devices: NONE Cardiac Surgery: No Cholecystectomy: Yes (2006) Ear Surgery: No Endocrine Surgery: No Eye Surgery: No Genitourinary Surgery: No Gynecologic Surgery: No Hysterectomy: No Insulin Pump: No Joint Replacement: Yes (LEFT HIP REPLACEMENT) Neurologic Surgery: No Oral Surgery: No Pacemaker: No Thoracic Surgery: No Other Surgery: Yes (Cholecystectomy) Social History Alcohol Use: No (H/O ALCOHOLISM ) Tobacco Use: No Substance Use: No Allergies-Medications (Allergen,Severity, Reaction): Coded Allergies: codeine (Unverified Allergy, Severe, VOMITING, 02/15/17) MILD REACTION- VOMITING morphine (Unverified Allergy, Severe, PT DENIES, 02/15/17) MILD REACTION aspirin (Unverified Adverse Reaction, Severe, Bleeding, 02/15/17) STOMACH "BLEEDS" PER PT ; SEVERE REACTION nortriptyline (Unverified Adverse Reaction, Severe, Hallucinations, ) vomiting ; INTERMEDIATE REACTION Reported Meds & Prescriptions Reported Meds & Active Scripts Active Roxicodone (Oxycodone HCl) 5 Mg Tab 5 Mg PO Q8HR USE SPARRINGLY POSSIBLE Aldactone (Spironolactone) 50 Mg Tab 50 Mg PO BID@ Xifaxan (Rifaximin) 550 Mg Tab 550 Mg PO BID Levothyroxine (Levothyroxine Sodium) 50 Mcg Tab 125 Mcg PO DAILY Reported Lactulose Liq (Lactulose) 10 Gm/15 Ml Soln 30 Ml PO BID PRN Pantoprazole (Pantoprazole Sodium) 40 Mg Tab 40 Mg PO DAILY Furosemide 40 Mg Tab 40 Mg PO DAILY Review of Systems Except as stated in HPI: all other systems reviewed are Neg Physical Exam Narrative GENERAL: The patient is alert, oriented 3 in moderate to severe distress with her abdominal pain. Her vital signs show pulse of 100 and blood pressure 119/ 55 but are otherwise normal. SKIN: Focused skin assessment warm/dry. HEAD: Atraumatic. Normocephalic. EYES: Pupils equal and round. No scleral icterus. No injection or drainage. ENT: No nasal bleeding or discharge. Mucous membranes pink and moist. NECK: Trachea midline. No JVD. CARDIOVASCULAR: Regular rate and rhythm. No murmur appreciated. RESPIRATORY: No accessory muscle use. Clear to auscultation. Breath sounds equal bilaterally. GASTROINTESTINAL: Abdomen soft, with tenderness to direct palpation above the umbilicus midline, slightly distended. Hepatic and splenic margins not palpable. No guarding or rebound is present. MUSCULOSKELETAL: No obvious deformities. No clubbing. No cyanosis. No edema. NEUROLOGICAL: Awake and alert. No obvious cranial nerve deficits. Motor grossly within normal limits. Normal speech. PSYCHIATRIC: Appropriate mood and affect; insight and judgment normal. Data Data Last Documented VS Vital Signs Date Time Temp Pulse Resp B/P (MAP) Pulse Ox O2 Delivery O2 Flow Rate FiO2 02/15/17 05:50 98 15 104/57 (73) 99 Room Air 02/15/17 05:32 98.1 Orders Orders Complete Blood Count With Diff (02/15/17 05:56) Comprehensive Metabolic Panel (02/15/17 05:56) Prothrombin Time / Inr (Pt) (02/15/17 05:56) Act Partial Throm Time (Ptt) (02/15/17 05:56) Urinalysis - C+S If Indicated (02/15/17 05:56) Ammonia (02/15/17 05:56) Ondansetron Inj (Zofran Inj) (02/15/17 06:00) Sodium Chlor 0.9% 1000 Ml Inj (Ns 1000 M (02/15/17 06:00) Hydromorphone Pf Inj (Dilaudid Pf Inj) (02/15/17 06:15) Ondansetron Inj (Zofran Inj) (02/15/17 07:00) Hydromorphone Pf Inj (Dilaudid Pf Inj) (02/15/17 07:00) Labs Laboratory Tests Test 02/15/17 05:55 02/15/17 06:45 White Blood Count 6.5 TH/MM3 Red Blood Count 3.42 MIL/MM3 Hemoglobin 10.9 GM/DL Hematocrit 32.3 % Mean Corpuscular Volume 94.5 FL Mean Corpuscular Hemoglobin 32.0 PG Mean Corpuscular Hemoglobin Concent 33.8 % Red Cell Distribution Width 15.0 % Platelet Count 148 TH/MM3 Mean Platelet Volume 6.9 FL Neutrophils (%) (Auto) 61.9 % Lymphocytes (%) (Auto) 18.0 % Monocytes (%) (Auto) 14.0 % Eosinophils (%) (Auto) 5.0 % Basophils (%) (Auto) 1.1 % Neutrophils # (Auto) 4.0 TH/MM3 Lymphocytes # (Auto) 1.2 TH/MM3 Monocytes # (Auto) 0.9 TH/MM3 Eosinophils # (Auto) 0.3 TH/MM3 Basophils # (Auto) 0.1 TH/MM3 CBC Comment DIFF FINAL Differential Comment MDM Medical Decision Making Medical Screen Exam Complete: Yes Emergency Medical Condition: Yes Medical Record Reviewed: Yes Differential Diagnosis Gastritis with intractable vomiting, dehydration, electrolyte disorder, pancreatitis, colitis, hepatic encephalopathy, hypo-/hyperglycemia, renal insufficiency, dehydration Narrative Course It is now 0700 and the patient is transferred to Dr. Espinoza. Kendall Vargas MD Feb 15, 2017 06:08
[2017-02-15] MEDS ORDERED: HYDROmorphone HCL PF 1 MG/ML VIAL IVP ONE ×2 (06:15→07:00)
[2017-02-15 06:26] LABS: BASOPHIL # 0.1 TH/MM3 (0-0.2); BASOPHIL % 1.1 % (0.0-2.0); EOSINOPHIL # 0.3 TH/MM3 (0-0.4); HEMATOCRIT 32.3 % (35.0-46.0); HEMO FLAGS DIFF FINAL; LYMPHOCYTE # 1.2 TH/MM3 (1.0-4.8); MEAN CELL VOLUME 94.5 FL (80.0-100.0); MEAN CORPUSCULAR HGB CONC 33.8 % (32.0-36.0); NEUT % 61.9 % (16.0-70.0); PLATELET COUNT 148 TH/MM3 (150-450); RED BLOOD COUNT 3.42 MIL/MM3 (4.00-5.30); WHITE BLOOD COUNT 6.5 TH/MM3 (4.0-11.0)
[2017-02-15 07:00] LABS: POTASSIUM 3.1 MEQ/L (3.5-5.1)
[2017-02-15 07:05] LABS: APTT (PATIENT) 33.9 SEC (24.3-30.1); INTERNATIONAL NORMALIZED RATIO 1.6 RATIO; PROTHROMBIN TIME - PATIENT 18.1 SEC (9.8-11.6)
[2017-02-15 07:10] LABS: BICARBONATE 23.6 MEQ/L (21.0-32.0); CALCIUM-PROTEIN CORRECTED 7.7 MG/DL (8.5-10.1); TOTAL BILIRUBIN ADULT 3.4 MG/DL (0.2-1.0)
[2017-02-15 07:21] LABS: BLOOD, URINE NEG (NEG); GLUCOSE,URINE NEG (NEG); KETONE, URINE TRACE mg/dL (NEG); NITRITE,URINE POS (NEG); PH, URINE 5.5 (5.0-8.5)
[2017-02-15 07:26] LABS: BACTERIA, URINE RARE /hpf; COMMENT (UR) CULTURE INDICATED; CULTURE IF INDICATED CULTURE INDICATED; METHOD OF COLLECTION CLEAN CATCH; SQUAMOUS EPITHELIAL CELL URINE 0-5 /hpf (0-5); URINE COLOR AMBER (YELLW/STRAW); WBC, URINE 0-2 /hpf (0-5)
[2017-02-15] MEDS ORDERED: PROMETHAZINE INJ 25 MG/ML VIAL IM ONE (07:45)
[2017-02-15] MEDS ORDERED: IOHEXOL 350 MG/ML 10 ML VIAL (for RAD DIAG) IVCONTRAST ONE (07:54)
--- NOTE | 2017-02-15 07:59 | PD ---
Physical Exam Date Seen by Provider: Feb 15, 2017 Time Seen by Provider: 07:00 Narrative Patient signed out to me by Dr. Vargas, please see previous notes for further details. Patient has had multiple episodes of vomiting at home and not doing well despite Zofran given several days ago. She is actively vomiting in the ER and had been given multiple doses of Zofran as well here. IV fluids given. Laboratory Tests Test 02/15/17 05:55 02/15/17 06:45 02/15/17 07:05 Red Blood Count 3.42 MIL/MM3 (4.00-5.30) Hemoglobin 10.9 GM/DL (11.6-15.3) Hematocrit 32.3 % (35.0-46.0) Platelet Count 148 TH/MM3 (150-450) Mean Platelet Volume 6.9 FL (7.0-11.0) Monocytes (%) (Auto) 14.0 % (0.0-8.0) Eosinophils (%) (Auto) 5.0 % (0.0-4.0) Prothrombin Time 18.1 SEC (9.8-11.6) Activated Partial Thromboplast Time 33.9 SEC (24.3-30.1) Albumin 1.7 GM/DL (3.4-5.0) Calcium Level 7.3 MG/DL (8.5-10.1) Alkaline Phosphatase 143 U/L (45-117) Aspartate Amino Transf (AST/SGOT) 46 U/L (15-37) Total Bilirubin 3.4 MG/DL (0.2-1.0) Sodium Level 126 MEQ/L (136-145) Potassium Level 3.1 MEQ/L (3.5-5.1) Chloride Level 93 MEQ/L (98-107) Protein Corrected Calcium 7.7 MG/DL (8.5-10.1) Ammonia 87 MCMOL/L (11-32) Urine Color DILAN (YELLW/STRAW) Urine Protein 30 mg/dL (NEG-TRACE) Urine Ketones TRACE mg/dL (NEG) Urine Nitrite POS (NEG) Urine Bilirubin MOD (NEG) Urine Bacteria RARE /hpf (NONE) Lab work shows hyponatremia and at this point, my plan would be to admit the patient for further treatment of nausea and vomiting as well as hyponatremia as per discussion with Dr. Vargas. Case is discussed with Dr. Duggan for admission. Data Data Last Documented VS Vital Signs Date Time Temp Pulse Resp B/P (MAP) Pulse Ox O2 Delivery O2 Flow Rate FiO2 02/15/17 07:51 99 16 112/67 (82) 98 02/15/17 06:55 Room Air 02/15/17 05:32 98.1 Orders Orders Complete Blood Count With Diff (02/15/17 05:56) Comprehensive Metabolic Panel (02/15/17 05:56) Prothrombin Time / Inr (Pt) (02/15/17 05:56) Act Partial Throm Time (Ptt) (02/15/17 05:56) Urinalysis - C+S If Indicated (02/15/17 05:56) Ammonia (02/15/17 05:56) Ondansetron Inj (Zofran Inj) (02/15/17 06:00) Sodium Chlor 0.9% 1000 Ml Inj (Ns 1000 M (02/15/17 06:00) Hydromorphone Pf Inj (Dilaudid Pf Inj) (02/15/17 06:15) Ondansetron Inj (Zofran Inj) (02/15/17 07:00) Hydromorphone Pf Inj (Dilaudid Pf Inj) (02/15/17 07:00) Abdomen, Flat & Upright (02/15/17 07:13) Urine Culture (02/15/17 07:05) Promethazine Inj (Phenergan Inj) (02/15/17 07:45) Admit Order (Ed Use Only) (02/15/17 07:53) Labs Laboratory Tests Test 02/15/17 05:55 02/15/17 06:45 02/15/17 07:05 White Blood Count 6.5 TH/MM3 Red Blood Count 3.42 MIL/MM3 Hemoglobin 10.9 GM/DL Hematocrit 32.3 % Mean Corpuscular Volume 94.5 FL Mean Corpuscular Hemoglobin 32.0 PG Mean Corpuscular Hemoglobin Concent 33.8 % Red Cell Distribution Width 15.0 % Platelet Count 148 TH/MM3 Mean Platelet Volume 6.9 FL Neutrophils (%) (Auto) 61.9 % Lymphocytes (%) (Auto) 18.0 % Monocytes (%) (Auto) 14.0 % Eosinophils (%) (Auto) 5.0 % Basophils (%) (Auto) 1.1 % Neutrophils # (Auto) 4.0 TH/MM3 Lymphocytes # (Auto) 1.2 TH/MM3 Monocytes # (Auto) 0.9 TH/MM3 Eosinophils # (Auto) 0.3 TH/MM3 Basophils # (Auto) 0.1 TH/MM3 CBC Comment DIFF FINAL Differential Comment Prothrombin Time 18.1 SEC Prothromb Time International Ratio 1.6 RATIO Activated Partial Thromboplast Time 33.9 SEC Blood Urea Nitrogen 8 MG/DL Creatinine 0.66 MG/DL Random Glucose 103 MG/DL Total Protein 6.4 GM/DL Albumin 1.7 GM/DL Calcium Level 7.3 MG/DL Alkaline Phosphatase 143 U/L Aspartate Amino Transf (AST/SGOT) 46 U/L Alanine Aminotransferase (ALT/SGPT) 29 U/L Total Bilirubin 3.4 MG/DL Sodium Level 126 MEQ/L Potassium Level 3.1 MEQ/L Chloride Level 93 MEQ/L Carbon Dioxide Level 23.6 MEQ/L Anion Gap 9 MEQ/L Estimat Glomerular Filtration Rate 94 ML/MIN Protein Corrected Calcium 7.7 MG/DL Ammonia 87 MCMOL/L Urine Collection Type CLEAN CATCH Urine Color DILAN Urine Turbidity CLEAR Urine pH 5.5 Urine Specific [place] 1.030 Urine Protein 30 mg/dL Urine Glucose (UA) NEG mg/dL Urine Ketones TRACE mg/dL Urine Occult Blood NEG Urine Nitrite POS Urine Bilirubin MOD Urine Leukocyte Esterase NEG Urine WBC 0-2 /hpf Urine Squamous Epithelial Cells 0-5 /hpf Urine Amorphous Sediment SMALL Urine Bacteria RARE /hpf Microscopic Urinalysis Comment CULTURE INDICATED MDM Medical Record Reviewed: Yes Supervised Visit with SHALA: No Diagnosis Primary Impression: Nausea and vomiting Additional Impression: Hyponatremia Admitting Information Admitting Physician Requests: Admit Jennifer Levi MD Feb 15, 2017 07:59
[2017-02-15] MEDS ORDERED: METOCLOPRAMIDE HCL 10 MG/2 ML VIAL IV PUSH PRN (08:15)
[2017-02-15] MEDS ORDERED: NALOXONE HCL 0.4 MG/ML AMP IV PRN (08:15)
[2017-02-15] MEDS ORDERED: PROMETHAZINE INJ 25 MG/ML VIAL IM PRN (08:15)
[2017-02-15] MEDS ORDERED: SODIUM CHLORIDE 0.9% FLUSH 10 ML FLUSH IV FLUSH PRN (08:15)
--- NOTE | 2017-02-15 08:28 | RADRPT ---
EXAM DATE/TIME: 02/15/2017 08:03 [facility] COMPARISON: ABDOMEN FLAT & UPRIGHT, August 07, 2016, 9:21. INDICATIONS : Vomiting. MEDICAL HISTORY : Hypothyroidism. Cirrhosis. Asthma. GI bleed. Esophageal varices. Alcoholic hepatitis. Thrombocyt opneia. SURGICAL HISTORY : Cholecystectomy. Umbilical hernia repair. Esophageal dilitation. Total left hip replacement. ENCOUNTER: Initial ACUITY: 4 - 6 days PAIN SCORE: 10/10 LOCATION: entire abdomen. FINDINGS: There are multiple loops of mildly dilated small bowel primarily in the upper abdomen. Air is seen in the distal descending colon and rectum. No significant air-fluid levels on upright view. No signific ant pneumatosis or free air. Small calcifications in the right pelvis likely reflect phleboliths. No abnormal calcifications. Left hip arthroplasty in place. No focal bony lesions. CONCLUSION: 1. Findings consistent with partial small bowel obstruction versus developing adynamic ileus. 2. No evidence for perforation or bowel infarction at this time. Martin Olmos MD on February 15, 2017 at 8:24 Board Certified Radiologist. This report was verified electronically.
[2017-02-15] MEDS: SODIUM CHLORIDE 0.9% FLUSH 10 ML FLUSH IV FLUSH SCH ×2 (09:00→20:01)
[2017-02-15] MEDS: FUROSEMIDE 40 MG TAB PO SCH (09:11)
[2017-02-15] MEDS: PANTOPRAZOLE SOD 40 MG DELAYED RELEASE TAB PO SCH (09:11)
[2017-02-15] MEDS: D5-1/2 NS + KCL 20 MEQ INJ 1,000 ML IV SCH ×2 (09:11→17:08)
[2017-02-15] MEDS: LACTULOSE SYRUP 20 GM/30 ML CUP PO SCH ×2 (09:12→20:01)
--- NOTE | 2017-02-15 10:57 | HHI.HP ---
[facility] David Vo MD Admission Diagnosis vomiting/dehydration/hyponatremia Diagnoses: (1) Nausea and vomiting (2) Alcoholic cirrhosis of liver (3) Hyperammonemia (4) Hyponatremia (5) Hypokalemia (6) Ascites (7) Abdominal pain Travel History International Travel<30 Days: No Contact w/Intl Traveler <30 Da: No Traveled to Known Affected Are: No History of Present Illness This is a 57-year-old female with long-standing history of cirrhosis due to alcoholism who presents with a five-day history of nausea and vomiting, she has been unable to keep any food down including broth. The patient also complains of diffuse abdominal pain which is typical for ascites. She presented to the ER for this last night and was requested for observation. The patient undergoes routine paracentesis with the last being February 08. She is followed by the [facility]. The patient denies fever or chills. She denies hematochezia, melena, hematemesis. Denies dysuria. She does endorse night sweats. She denies any recent confusion. She states she has been compliant with lactulose. Review of Systems Constitutional: DENIES: Fever, Chills Eyes: DENIES: Diplopia Ears, nose, mouth, throat: DENIES: Throat pain, Hoarseness Respiratory: DENIES: Cough, Shortness of breath Cardiovascular: DENIES: Chest pain, Lower Extremity Edema Gastrointestinal: COMPLAINS OF: Abdominal pain, Nausea, Vomiting, DENIES: Black stools, Bloody stools, Diarrhea Genitourinary: DENIES: Urgency, Dysuria Musculoskeletal: DENIES: Muscle aches, Joint Swelling Integumentary: COMPLAINS OF: Pruritus, DENIES: Rash Hematologic/lymphatic: DENIES: Lymphadenopathy Neurologic: DENIES: Abnormal gait, Localized weakness Psychiatric: DENIES: Anxiety, Confusion Past Family Social History Past Medical History Alcoholic cirrhosis of the liver, ascites with regular paracentesis History of esophageal varices History of hospitalizations for hepatic encephalopathy Depression History of anorexia with bulimia Hypothyroidism Past Surgical History Hernia repair Cholecystectomy Allergies: Coded Allergies: codeine (Unverified Allergy, Severe, VOMITING, 02/15/17) MILD REACTION- VOMITING morphine (Unverified Allergy, Severe, PT DENIES, 02/15/17) MILD REACTION aspirin (Unverified Adverse Reaction, Severe, Bleeding, 02/15/17) STOMACH "BLEEDS" PER PT ; SEVERE REACTION nortriptyline (Unverified Adverse Reaction, Severe, Hallucinations, ) vomiting ; INTERMEDIATE REACTION Family History Reviewed and noncontributory Social History The patient denies alcohol use. Denies illicit drug use. She is . Physical Exam Vital Signs Vital Signs Date Time Temp Pulse Resp B/P (MAP) Pulse Ox O2 Delivery O2 Flow Rate FiO2 02/15/17 09:41 96.7 102 16 119/83 (95) 100 02/15/17 09:33 99 16 124/74 (91) 98 02/15/17 07:51 99 16 112/67 (82) 98 02/15/17 07:00 16 02/15/17 06:55 101 20 115/67 (83) 98 Room Air 02/15/17 05:50 98 15 104/57 (73) 99 Room Air 02/15/17 05:32 98.1 100 14 119/55 (76) 100 Physical Exam GENERAL: chronically ill appearing female patient. SKIN: Warm and dry. Scattered spider telangiectasias. HEAD: Normocephalic. EYES: No scleral icterus. No injection or drainage. Pupils are constricted. NECK: Supple, trachea midline. No JVD or lymphadenopathy. CARDIOVASCULAR: Regular rate and rhythm with 2/6 systolic murmur at the left sternal border. RESPIRATORY: Breath sounds equal bilaterally. No accessory muscle use. GASTROINTESTINAL: Abdomen soft, non-tender, nondistended. Positive ascites noted. EXTREMITIES: No pedal edema. NEUROLOGICAL: Awake, alert, and oriented x 3. Non-focal. Laboratory Laboratory Tests Test 02/15/17 05:55 02/15/17 06:45 02/15/17 07:05 White Blood Count 6.5 Red Blood Count 3.42 Hemoglobin 10.9 Hematocrit 32.3 Mean Corpuscular Volume 94.5 Mean Corpuscular Hemoglobin 32.0 Mean Corpuscular Hemoglobin Concent 33.8 Red Cell Distribution Width 15.0 Platelet Count 148 Mean Platelet Volume 6.9 Neutrophils (%) (Auto) 61.9 Lymphocytes (%) (Auto) 18.0 Monocytes (%) (Auto) 14.0 Eosinophils (%) (Auto) 5.0 Basophils (%) (Auto) 1.1 Neutrophils # (Auto) 4.0 Lymphocytes # (Auto) 1.2 Monocytes # (Auto) 0.9 Eosinophils # (Auto) 0.3 Basophils # (Auto) 0.1 CBC Comment DIFF FINAL Differential Comment Prothrombin Time 18.1 Prothromb Time International Ratio 1.6 Activated Partial Thromboplast Time 33.9 Blood Urea Nitrogen 8 Creatinine 0.66 Random Glucose 103 Total Protein 6.4 Albumin 1.7 Calcium Level 7.3 Alkaline Phosphatase 143 Aspartate Amino Transf (AST/SGOT) 46 Alanine Aminotransferase (ALT/SGPT) 29 Total Bilirubin 3.4 Sodium Level 126 Potassium Level 3.1 Chloride Level 93 Carbon Dioxide Level 23.6 Anion Gap 9 Estimat Glomerular Filtration Rate 94 Protein Corrected Calcium 7.7 Ammonia 87 Lipase 105 Thyroid Stimulating Hormone 3rd Gen LESS THAN 0.005 Urine Collection Type CLEAN CATCH Urine Color DILAN Urine Turbidity CLEAR Urine pH 5.5 Urine Specific [place] 1.030 Urine Protein 30 Urine Glucose (UA) NEG Urine Ketones TRACE Urine Occult Blood NEG Urine Nitrite POS Urine Bilirubin MOD Urine Leukocyte Esterase NEG Urine WBC 0-2 Urine Squamous Epithelial Cells 0-5 Urine Amorphous Sediment SMALL Urine Bacteria RARE Microscopic Urinalysis Comment CULTURE INDICATED Date/Time Source Procedure Growth Status 02/15/17 07:05 Urine Clean Catch Urine Culture Pending Received Result Diagram: 02/15/17 0555 02/15/17 0645 Caprini VTE Risk Assessment Caprini VTE Risk Assessment: Mod/High Risk (score >= 2) VTE Pharm Contraindication: End Stage Liver Disease Caprini Risk Assessment Model Point Value = 1 Point Value = 2 Point Value = 3 Point Value = 5 Age 41-60 Minor surgery BMI > 25 kg/m2 Swollen legs Varicose veins or History of unexplained or recurrent spontaneous Oral contraceptives or hormone replacement Sepsis (< 1 month) Serious lung disease, including pneumonia (< 1 month) Abnormal pulmonary function Acute myocardial infarction Congestive heart failure (< 1 month) History of inflammatory bowel disease Medical patient at bed rest Age 61-74 Arthroscopic surgery Major open surgery (> 45 min) Laparoscopic surgery (> 45 min) Malignancy Confined to bed (> 72 hours) Immobilizing plaster cast Central venous access Age >= 75 History of VTE Family history of VTE Factor V Leiden Prothrombin [id number] Lupus anticoagulant Anticardiolipin antibodies Elevated serum homocysteine Heparin-induced thrombocytopenia Other congenital or acquired thrombophilia Stroke (< 1 month) Elective arthroplasty Hip, pelvis, or leg fracture Acute spinal cord injury (< 1 month) Prophylaxis Regimen Total Risk Factor Score Risk Level Prophylaxis Regimen 0-1 Low Early ambulation 2 Moderate Order ONE of the following: *Sequential Compression Device (SCD) *Heparin 5000 units SQ BID 3-4 Higher Order ONE of the following medications: *Heparin 5000 units SQ TID *Enoxaparin/Lovenox 40 mg SQ daily (WT < 150 kg, CrCl > 30 mL/min) *Enoxaparin/Lovenox 30 mg SQ daily (WT < 150 kg, CrCl > 10-29 mL/min) *Enoxaparin/Lovenox 30 mg SQ BID (WT < 150 kg, CrCl > 30 mL/min) AND/OR *Sequential Compression Device (SCD) 5 or more Highest Order ONE of the following medications: *Heparin 5000 units SQ TID (Preferred with Epidurals) *Enoxaparin/Lovenox 40 mg SQ daily (WT < 150 kg, CrCl > 30 mL/min) *Enoxaparin/Lovenox 30 mg SQ daily (WT < 150 kg, CrCl > 10-29 mL/min) *Enoxaparin/Lovenox 30 mg SQ BID (WT < 150 kg, CrCl > 30 mL/min) AND *Sequential Compression Device (SCD) Assessment and Plan Assessment and Plan 57 year-old female with cirrhosis of the liver due to alcoholism presents with intractable nausea and vomiting for 5 days Assessment: Intractable nausea and vomiting Hyponatremia Hypokalemia Abnormal urinalysis Alcoholic cirrhosis of the liver, ascites with regular paracentesis History of esophageal varices History of hospitalizations for hepatic encephalopathy Depression History of anorexia with bulimia Hypothyroidism place in observation, give gentle IV fluids D5 1/2 NS with 20 meq Kcl/L, anti- emetics. Replace her potassium. GI has been consulted. We'll follow-up abdominal x-ray ordered in the emergency department. Continue lactulose and rifaximin. Will start Rocephin pending results of urine culture. Continue Synthroid. Monitor ammonia levels. Currently mentation is clear but she does have risk for hepatic encephalopathy. Caution with pain medications. Monitor labs/electrolytes. DVT prophylaxis with SCDs. Suzie Duggan MD Feb 15, 2017 10:57
[2017-02-15] MEDS: SPIRONOLACTONE 50 MG TAB PO SCH ×2 (12:46→17:07)
[2017-02-15] MEDS: RIFAXIMIN 550 MG TAB PO SCH ×2 (12:46→20:01)
[2017-02-15] MEDS: cefTRIAXone INJ 1,000 MG in SODIUM CHLORIDE 0.9% INJ 100 ML IV SCH (12:46)
[2017-02-15] MEDS: LEVOTHYROXINE SODIUM 125 MCG TAB PO SCH (12:48)
--- NOTE | 2017-02-15 19:42 | MB ---
cc: ELMIRA RODRIGUEZ M.D. DATE OF CONSULTATION 02/15/[address] Duggan. REASON FOR REFERRAL Mental status changes and nausea, vomiting. HISTORY OF THE PRESENT ILLNESS Thank you for the consultation. This is a pleasant 57-year-old lady who is known to our practice. The patient has a long history of cirrhosis, alcohol-induced. The patient has not been drinking for at least a couple of years. She has been seen by us on a regular basis. She had paracentesis a few days ago on Tuesday and the day after she started having discomfort with nausea, vomiting. She had the paracentesis because of distension and abdominal pain because of the ascites. The patient denied any fever or chills but most of her problem was the nausea and vomiting that was not controlled with antiemetics and she felt that she had some fogginess and she doubled her dose of lactulose according to her in the last 24 hours. Currently she is doing okay. She feels good. No confusion recently and less nausea. REVIEW OF SYSTEMS All 12-point negative except HPI. ALLERGIES CODEINE, MORPHINE, ASPIRIN. NORTRIPTYLINE. FAMILY HISTORY Noncontributory. SOCIAL HISTORY No alcohol at this time. No drug or smoking. PAST MEDICAL HISTORY Significant for: 1. Depression. 2. Anoxia. 3. Hypothyroidism. 4. Esophageal varices. 5. Alcoholic cirrhosis. PHYSICAL EXAMINATION GENERAL: Alert, oriented no acute distress. VITAL SIGNS: Stable. HEENT: Pupils are round and reactive to light. NECK: Supple. CHEST: Clear to auscultation. CARDIOVASCULAR: Regular rate and rhythm. ABDOMEN: Soft, nondistended at this time, nontender, questionable ascites. EXTREMITIES: No edema, clubbing or cyanosis. NEUROLOGIC: Alert, oriented. PSYCHIATRIC: Appropriate. LABORATORY DATA White count 6.5, hemoglobin 10.9, platelets 148. INR 1.6. Total bilirubin 3.4. AST 46. ALT 29. Albumin 1.7. Lipase 105. Potassium 3.1. IMAGING Abdominal x-ray finding consistent of partial small bowel obstruction versus developing of ileus. ASSESSMENT/PLAN 1. Pleasant 51-year-old lady with cirrhosis secondary to alcohol. Apparently the patient does not drink alcohol and she is still on medical regimen. Her ascites is less frequent and smaller amount with the diuretics but she still needs that from time to time. 2. She might have an ileus, I doubt that she had bowel obstruction. Her symptom seems to be resolving and if tomorrow she is doing okay, then we are going to start a diet and advance as tolerated. Possibly small bowel follow-through to rule out obstruction or lesion. Meanwhile will continue lactulose and diuretics and we will follow up with you. MD OLVIN Moy/KK /6:17 PM /7:26 PM
[2017-02-16] VITALS: BP 118/67; PULSE 76; RESP 16; TEMP 97.9; O2SAT 100
[2017-02-16] MEDS: ONDANSETRON HCL 4 MG/2 ML VIAL IVP PRN ×2 (00:20→19:44)
[2017-02-16 04:00] VITALS: BP 125/75; PULSE 90; RESP 18; TEMP 97.8; O2SAT 98
[2017-02-16] MEDS: D5-1/2 NS + KCL 20 MEQ INJ 1,000 ML IV SCH ×3 (04:11→22:39)
--- NOTE | 2017-02-16 06:51 | RADRPT ---
EXAM DATE/TIME: 02/16/2017 06:15 [facility] COMPARISON: ABDOMEN FLAT & UPRIGHT, February 15, 2017, 8:03. INDICATIONS : Vomiting. MEDICAL HISTORY : Hypothyroidism. Cirrhosis. Asthma. GI bleed. Esophageal varices. Alcoholic hepatitis. Thrombocytopeni a. SURGICAL HISTORY : Cholecystectomy. Umbilical hernia repair. Esophageal dilatation. Total left hip replacement. ENCOUNTER: Subsequent ACUITY: 4 - 6 days PAIN SCORE: 7/10 LOCATION: all quadrants. FINDINGS: Supine and upright views of the abdomen were performed. There is gaseous distention of small and larg e bowel characteristic of a diffuse ileus. No definite evidence for obstruction. Previous left hip re placement. No free air identified. CONCLUSION: 1. Persistent gaseous distention of bowel most characteristic of an ileus, or possibly partial obstru ction.. Rogelio Lynch MD on February 16, 2017 at 6:47 Board Certified Radiologist. This report was verified electronically.
[2017-02-16 07:15] LABS: BICARBONATE 22.5 MEQ/L (21.0-32.0); CALCIUM-PROTEIN CORRECTED 7.9 MG/DL (8.5-10.1); TOTAL BILIRUBIN ADULT 3.3 MG/DL (0.2-1.0)
[2017-02-16 07:27] LABS: INTERNATIONAL NORMALIZED RATIO 1.6 RATIO; PROTHROMBIN TIME - PATIENT 17.8 SEC (9.8-11.6)
[2017-02-16 08:00] VITALS: BP 103/68; PULSE 80; PULSE 81; RESP 17; TEMP 97.9; O2SAT 100
[2017-02-16] MEDS: RIFAXIMIN 550 MG TAB PO SCH ×3 (09:07→22:24)
[2017-02-16] MEDS: FUROSEMIDE 40 MG TAB PO SCH (09:07)
[2017-02-16] MEDS: LACTULOSE SYRUP 20 GM/30 ML CUP PO SCH ×3 (09:07→22:24)
[2017-02-16] MEDS: SPIRONOLACTONE 50 MG TAB PO SCH ×2 (09:07→18:07)
[2017-02-16] MEDS: SODIUM CHLORIDE 0.9% FLUSH 10 ML FLUSH IV FLUSH SCH ×2 (09:07→20:57)
[2017-02-16] MEDS: LEVOTHYROXINE SODIUM 125 MCG TAB PO SCH (09:07)
[2017-02-16] MEDS: PANTOPRAZOLE SOD 40 MG DELAYED RELEASE TAB PO SCH (09:07)
[2017-02-16] MEDS ORDERED: POTASSIUM CHLORIDE 10 MEQ CONTROLLED RELEASE TAB PO ONE (09:45)
[2017-02-16] MEDS ORDERED: MAGNESIUM SULFATE 1 GM PREMIX 100 ML IV ONE (09:45)
[2017-02-16] MEDS ORDERED: POTASSIUM CHLOR 10 MEQ PREMIX 100 ML IV ONE (09:45)
[2017-02-16 12:00] VITALS: BP 104/78; PULSE 88; RESP 17; TEMP 98.3; O2SAT 100
[2017-02-16] MEDS ORDERED: LACTULOSE SYRUP 20 GM/30 ML CUP PO ONE (12:00)
[2017-02-16] MEDS: cefTRIAXone INJ 1,000 MG in SODIUM CHLORIDE 0.9% INJ 100 ML IV SCH ×2 (13:07→14:01)
[2017-02-16] MEDS ORDERED: POTASSIUM CHLORIDE 20 MEQ CONTROLLED RELEASE TAB PO ONE (13:30)
[2017-02-16 16:00] VITALS: BP 103/66; PULSE 89; RESP 17; TEMP 98.6; O2SAT 99
--- NOTE | 2017-02-16 17:15 | HHI.GIFU ---
GI Follow-up Note Consult Follow-up Subjective: Patient laying in bed comfortably, tolerated clear liquids, had liquid bowel movement ..Abdominal x -ray stable .No nausea, vomiting today , ordering food now Objective: PHYSICAL EXAMINATION: Vitals signs stable No fever Vital Signs Date Time Temp Pulse Resp B/P (MAP) Pulse Ox O2 Delivery O2 Flow Rate FiO2 02/16/17 16:00 98.6 89 17 103/66 (78) 99 02/16/17 12:00 98.3 88 17 104/78 (87) 100 HEENT: Pupils round and reactive to light; normocephalic; atraumatic; no jaundice. Throat is clear. NECK: Neck is supple, no JVD, no lymphadenopathy. CHEST: Chest is clear to auscultation and percussion. CARDIAC: Regular rate and rhythm with no murmur gallop or rubs. ABDOMEN: Soft, distended, nontender; no hepatosplenomegaly; bowel sounds are present in all four quadrants, hyperactive EXTREMITIES: No clubbing, cyanosis, or edema. SKIN: Normal; no rash; no jaundice. [employer]ER: No focal deficits; alert and oriented times three. Available Data (labs, X- Rays, Procedues) : Laboratory Tests Test 02/15/17 05:55 02/15/17 06:45 02/15/17 07:05 02/16/17 05:47 White Blood Count 6.5 TH/MM3 Red Blood Count 3.42 MIL/MM3 Hemoglobin 10.9 GM/DL Hematocrit 32.3 % Mean Corpuscular Volume 94.5 FL Mean Corpuscular Hemoglobin 32.0 PG Mean Corpuscular Hemoglobin Concent 33.8 % Red Cell Distribution Width 15.0 % Platelet Count 148 TH/MM3 Mean Platelet Volume 6.9 FL Neutrophils (%) (Auto) 61.9 % Lymphocytes (%) (Auto) 18.0 % Monocytes (%) (Auto) 14.0 % Eosinophils (%) (Auto) 5.0 % Basophils (%) (Auto) 1.1 % Neutrophils # (Auto) 4.0 TH/MM3 Lymphocytes # (Auto) 1.2 TH/MM3 Monocytes # (Auto) 0.9 TH/MM3 Eosinophils # (Auto) 0.3 TH/MM3 Basophils # (Auto) 0.1 TH/MM3 CBC Comment DIFF FINAL Differential Comment Prothrombin Time 18.1 SEC 17.8 SEC Prothromb Time International Ratio 1.6 RATIO 1.6 RATIO Activated Partial Thromboplast Time 33.9 SEC Blood Urea Nitrogen 8 MG/DL 5 MG/DL Creatinine 0.66 MG/DL 0.66 MG/DL Random Glucose 103 MG/DL 108 MG/DL Total Protein 6.4 GM/DL 6.0 GM/DL Albumin 1.7 GM/DL 1.6 GM/DL Calcium Level 7.3 MG/DL 7.3 MG/DL Alkaline Phosphatase 143 U/L 117 U/L Aspartate Amino Transf (AST/SGOT) 46 U/L 54 U/L Alanine Aminotransferase (ALT/SGPT) 29 U/L 30 U/L Total Bilirubin 3.4 MG/DL 3.3 MG/DL Sodium Level 126 MEQ/L 127 MEQ/L Potassium Level 3.1 MEQ/L 3.0 MEQ/L Chloride Level 93 MEQ/L 97 MEQ/L Carbon Dioxide Level 23.6 MEQ/L 22.5 MEQ/L Anion Gap 9 MEQ/L 8 MEQ/L Estimat Glomerular Filtration Rate 94 ML/MIN 94 ML/MIN Protein Corrected Calcium 7.7 MG/DL 7.9 MG/DL Ammonia 87 MCMOL/L 86 MCMOL/L Lipase 105 U/L Thyroid Stimulating Hormone 3rd Gen LESS THAN 0.005 uIU/ML Urine Collection Type CLEAN CATCH Urine Color DILAN Urine Turbidity CLEAR Urine pH 5.5 Urine Specific [place] 1.030 Urine Protein 30 mg/dL Urine Glucose (UA) NEG mg/dL Urine Ketones TRACE mg/dL Urine Occult Blood NEG Urine Nitrite POS Urine Bilirubin MOD Urine Leukocyte Esterase NEG Urine WBC 0-2 /hpf Urine Squamous Epithelial Cells 0-5 /hpf Urine Amorphous Sediment SMALL Urine Bacteria RARE /hpf Microscopic Urinalysis Comment CULTURE INDICATED Magnesium Level 1.4 MG/DL ASSESSMENT/PLAN: liver cirrhosis secondary ETOH use- states abstinent for a long time recurrent ascites s/p paracentesis - no indication of SBP ileus vs partial bowel obstruction nausea, vomiting resolved Recommendations ct abdomen/pelvis in am advance diet as tolerated paracentesis prn avoid ETOH and other hepatotoxics It was a pleasure seeing RosalioMichelle Leyla. Thank you for this consult. Entered by: Kae Pinon MD Feb 16, 2017 17:15
[2017-02-16] MEDS ORDERED: DIATRIZOATE MEGLUM/DIATRIZOATE SOD 9 ML CUP PO ONE (18:30)
[2017-02-16 20:00] VITALS: BP 108/62; PULSE 94; RESP 20; TEMP 99.2; O2SAT 99
[2017-02-16] MEDS ORDERED: HYDROmorphone HCL PF 1 MG/ML VIAL IV PUSH ONE (20:30)
--- NOTE | 2017-02-16 22:12 | RADRPT ---
EXAM DATE/TIME: 02/16/2017 21:34 [facility] COMPARISON: No previous studies available for comparison. INDICATIONS : Abdominal pain, evaluate ascites, ileus, or obstruction. IV CONTRAST: 100 cc Omnipaque 350 (iohexol) IV ORAL CONTRAST: Prescribed oral contrast ingested. RADIATION DOSE: 8.35 CTDIvol (mGy) MEDICAL HISTORY : Cirrhosis. Hepatitis. Thrombocytopenia. SURGICAL HISTORY : Cholecystectomy. Umbilical hernia repair.Hip replacement, left. ENCOUNTER: Initial ACUITY: 1 day PAIN SCALE: 5/10 LOCATION: abdomen TECHNIQUE: Volumetric scanning of the abdomen and pelvis was performed. Using automated exposure control and ad justment of the mA and/or kV according to patient size, radiation dose was kept as low as reasonably achievable to obtain optimal diagnostic quality images. DICOM format image data is available electro nically for review and comparison. FINDINGS: Lung bases demonstrate some dependent atelectasis. The liver cirrhosis. Stable hepatic cyst since November. Spleen, adrenals, kidneys and pancreas unremarka ble. Previous cholecystectomy. There is moderate ascites. No bowel obstruction. No free air. There is diffuse mural thickening of the colon most characteristic of a colitis. Moderate pelvic asci randi. Previous left hip replacement. CONCLUSION: 1. Diffuse mural thickening of the colon most characteristic of a mild colitis. 2. Liver cirrhosis with moderate ascites. 3. No bowel obstruction or free air. 4. Splenomegaly to 15 cm. Rogelio Lynch MD on February 16, 2017 at 22:05 Board Certified Radiologist. This report was verified electronically.
--- NOTE | 2017-02-16 22:59 | HHI.PR ---
Subjective Remarks Patient seen this morning. Says she is feeling a little better. Would like to try eating. Says that nausea is improving. Objective Vital Signs Date Time Temp Pulse Resp B/P (MAP) Pulse Ox O2 Delivery O2 Flow Rate FiO2 02/16/17 16:00 98.6 89 17 103/66 (78) 99 02/16/17 12:00 98.3 88 17 104/78 (87) 100 02/16/17 08:00 81 02/16/17 08:00 97.9 80 17 103/68 (80) 100 02/16/17 04:00 97.8 90 18 125/75 (92) 98 02/16/17 00:00 97.9 76 16 118/67 (84) 100 I/O 02/15/17 02/15/17 02/15/17 02/16/17 02/16/17 02/16/17 07:00 15:00 23:00 07:00 15:00 23:00 Intake Total 1360 ml 680 ml 180 ml 1050 ml Output Total 1 ml Balance 1360 ml 680 ml 179 ml 1050 ml Intake Oral 360 ml 380 ml 180 ml IV Total 1000 ml 300 ml 1050 ml Output Urine Total 1 ml # Voids 3 1 # Bowel Movements 4 0 0 Result Diagram: 02/15/17 0555 02/16/17 0547 Objective Remarks GENERAL: patient sitting up in bed. Appears comfortable. Alert and oriented. SKIN: Warm and dry. HEAD: Normocephalic. EYES: No scleral icterus. No injection or drainage. NECK: Supple, trachea midline. No JVD. CARDIOVASCULAR: Regular rate and rhythm without murmurs, gallops, or rubs. RESPIRATORY: Breath sounds equal bilaterally. No accessory muscle use. GASTROINTESTINAL: Abdomen soft, distended. Nontender. No rebound or guarding. MUSCULOSKELETAL: No cyanosis, or edema. BACK: Nontender without obvious deformity. No CVA tenderness. A/P Assessment and Plan ==02/16/17========= Hypokalemia. Potassium 3.0. Replaced. Hypomagnesemia. Potassium 1.4. Replaced. Hyponatremia. Sodium 127 up from 126. Hold IV fluids. Nausea and vomiting. Appreciate GI Assistance. 57 year-old female with cirrhosis of the liver due to alcoholism presents with intractable nausea and vomiting for 5 days Assessment: //Intractable nausea and vomiting //Hyponatremia //Hypokalemia //Abnormal urinalysis //Alcoholic cirrhosis of the liver, ascites with regular paracentesis //History of esophageal varices //History of hospitalizations for hepatic encephalopathy //Depression //History of anorexia with bulimia //Hypothyroidism place in observation, give gentle IV fluids D5 1/2 NS with 20 meq Kcl/L, anti- emetics. Replace her potassium. GI has been consulted. We'll follow-up abdominal x-ray ordered in the emergency department. Continue lactulose and rifaximin. Will start Rocephin pending results of urine culture. Continue Synthroid. Monitor ammonia levels. Currently mentation is clear but she does have risk for hepatic encephalopathy. Caution with pain medications. Monitor labs/electrolytes. DVT prophylaxis with SCDs. Discharge Planning discharge when cleared by gastroenterology. Jem Ramirez MD Feb 16, 2017 22:59
[2017-02-17] VITALS (7 sets, daily range): BP systolic 87–102; BP diastolic 59–74; PULSE 78–99; RESP 16–20; TEMP 97.6–99.1; O2SAT 96–99
[2017-02-17 05:56] LABS: BASOPHIL # 0.1 TH/MM3 (0-0.2); BASOPHIL % 1.2 % (0.0-2.0); EOSINOPHIL # 0.5 TH/MM3 (0-0.4); EOSINOPHIL % 8.8 % (0.0-4.0); HEMATOCRIT 29.5 % (35.0-46.0); HEMO FLAGS DIFF FINAL; LYMPH % 20.5 % (9.0-44.0); LYMPHOCYTE # 1.2 TH/MM3 (1.0-4.8); MEAN CELL VOLUME 95.7 FL (80.0-100.0); MEAN CORPUSCULAR HEMOGLOBIN 31.7 PG (27.0-34.0); MEAN CORPUSCULAR HGB CONC 33.2 % (32.0-36.0); MONO % 13.7 % (0.0-8.0); NEUT % 55.8 % (16.0-70.0); PLATELET COUNT 123 TH/MM3 (150-450); RED BLOOD COUNT 3.09 MIL/MM3 (4.00-5.30); RED CELL DISTRIBUTION WIDTH 15.2 % (11.6-17.2); WHITE BLOOD COUNT 5.6 TH/MM3 (4.0-11.0)
[2017-02-17 06:09] LABS: POTASSIUM 3.6 MEQ/L (3.5-5.1)
[2017-02-17 06:32] LABS: BICARBONATE 21.3 MEQ/L (21.0-32.0); MAGNESIUM 1.7 MG/DL (1.5-2.5)
[2017-02-17] MEDS: SODIUM CHLORIDE 0.9% FLUSH 10 ML FLUSH IV FLUSH SCH ×2 (09:00→20:17)
[2017-02-17] MEDS: LACTULOSE SYRUP 20 GM/30 ML CUP PO SCH ×2 (09:18→20:16)
[2017-02-17] MEDS: FUROSEMIDE 40 MG TAB PO SCH (09:19)
[2017-02-17] MEDS: SPIRONOLACTONE 50 MG TAB PO SCH ×2 (09:19→17:17)
[2017-02-17] MEDS: PANTOPRAZOLE SOD 40 MG DELAYED RELEASE TAB PO SCH (09:19)
[2017-02-17] MEDS: RIFAXIMIN 550 MG TAB PO SCH ×2 (09:19→20:16)
[2017-02-17 10:17] LABS: CALCIUM-PROTEIN CORRECTED 7.5 MG/DL (8.5-10.1)
[2017-02-17] MEDS: POTASSIUM PHOSPHATE/SODIUM PHOSPHATE 250 MG TAB PO SCH ×3 (12:20→22:25)
[2017-02-17] MEDS ORDERED: SODIUM PHOSPHATE INJ 15 MMOL in SODIUM CHLORIDE 0.9% INJ 150 ML IV ONE (13:00)
--- NOTE | 2017-02-17 19:35 | HHI.PR ---
Subjective Remarks Patient seen this morning. Says she tolerated a little breakfast. Reports nausea improved. Objective Vital Signs Date Time Temp Pulse Resp B/P (MAP) Pulse Ox O2 Delivery O2 Flow Rate FiO2 02/17/17 16:00 97.9 79 18 97/61 (73) 97 02/17/17 12:00 98.2 78 19 100/63 (75) 98 02/17/17 08:00 96 02/17/17 08:00 98.0 88 18 99/59 (72) 98 02/17/17 04:00 98.3 94 20 87/60 (69) 99 02/17/17 00:00 99.1 97 20 102/74 (83) 96 02/16/17 20:00 99.2 94 20 108/62 (77) 99 I/O 02/16/17 02/16/17 02/16/17 02/17/17 02/17/17 02/17/17 07:00 15:00 23:00 07:00 15:00 23:00 Intake Total 180 ml 1050 ml 1000 ml 1525 ml 380 ml Output Total 1 ml 370 ml 500 ml Balance 179 ml 1050 ml 630 ml 1025 ml 380 ml Intake Oral 180 ml 1000 ml 200 ml 380 ml IV Total 1050 ml 1325 ml Output Urine Total 1 ml 360 ml 500 ml Emesis 10 ml # Voids 1 1 # Bowel Movements 0 7 1 Result Diagram: 02/17/1751602/17/17516 Objective Remarks GENERAL: patient sitting up in bed. Appears comfortable. Alert and oriented. SKIN: Warm and dry. HEAD: Normocephalic. EYES: No scleral icterus. No injection or drainage. NECK: Supple, trachea midline. No JVD. CARDIOVASCULAR: Regular rate and rhythm without murmurs, gallops, or rubs. RESPIRATORY: Breath sounds equal bilaterally. No accessory muscle use. GASTROINTESTINAL: Abdomen soft, distended. Nontender. No rebound or guarding. MUSCULOSKELETAL: No cyanosis, or edema. BACK: Nontender without obvious deformity. No CVA tenderness. A/P Assessment and Plan ==02/17/17========= //Colitis as seen on CT. Switch antibiotics to Cipro and Flagyl. //Hypokalemia. Potassium 3.6. Resolved. //Hypomagnesemia. Potassium 1.7. Resolved after replacement. //Hyponatremia. Sodium 130 up from 127. Continue to Hold IV fluids. //Hyperthyroidism. Patient initially hypothyroid, however appears to be supratherapeutic on dosage. Holding for several days. We'll restart lower dose. //Nausea and vomiting. Appears to be improved. //Refused diarrhea reported by patient. Will check C. difficile. Likely this is secondary to lactulose however //Hepatic encephalopathy. Ammonia 86 most recently. Continue lactulose and rifaximin. 57 year-old female with cirrhosis of the liver due to alcoholism presents with intractable nausea and vomiting for 5 days Assessment: //Intractable nausea and vomiting //Hyponatremia //Hypokalemia //Abnormal urinalysis //Alcoholic cirrhosis of the liver, ascites with regular paracentesis //History of esophageal varices //History of hospitalizations for hepatic encephalopathy //Depression //History of anorexia with bulimia //Hypothyroidism place in observation, give gentle IV fluids D5 1/2 NS with 20 meq Kcl/L, anti- emetics. Replace her potassium. GI has been consulted. We'll follow-up abdominal x-ray ordered in the emergency department. Continue lactulose and rifaximin. Will start Rocephin pending results of urine culture. Continue Synthroid. Monitor ammonia levels. Currently mentation is clear but she does have risk for hepatic encephalopathy. Caution with pain medications. Monitor labs/electrolytes. DVT prophylaxis with SCDs. Discharge Planning discharge when cleared by gastroenterology. Jem Ramirez MD Feb 17, 2017 19:35
[2017-02-17] MEDS: CIPROFLOXACIN 500 MG TAB PO SCH (20:16)
[2017-02-17] MEDS: metroNIDAZOLE 500 MG TAB PO SCH (22:25)
[2017-02-18] VITALS: BP 109/72; PULSE 89; RESP 16; TEMP 97.1; O2SAT 96
[2017-02-18 01:53] LABS: C. DIFF EPI 027 PRESUMPTIVE NEGATIVE (NEGATIVE)
[2017-02-18 04:00] VITALS: BP 94/61; PULSE 88; RESP 16; TEMP 97.1; O2SAT 98
[2017-02-18] MEDS: POTASSIUM PHOSPHATE/SODIUM PHOSPHATE 250 MG TAB PO SCH (05:22)
[2017-02-18] MEDS: metroNIDAZOLE 500 MG TAB PO SCH ×2 (05:22→13:28)
[2017-02-18 06:57] LABS: AUTOMATED NEUTROPHIL # 2.8 TH/MM3 (1.8-7.7); BASOPHIL % 0.5 % (0.0-2.0); EOSINOPHIL # 0.5 TH/MM3 (0-0.4); EOSINOPHIL % 10.1 % (0.0-4.0); HEMATOCRIT 30.6 % (35.0-46.0); HEMO FLAGS DIFF FINAL; LYMPH % 22.6 % (9.0-44.0); LYMPHOCYTE # 1.2 TH/MM3 (1.0-4.8); MEAN CELL VOLUME 95.9 FL (80.0-100.0); MEAN CORPUSCULAR HEMOGLOBIN 31.9 PG (27.0-34.0); MEAN CORPUSCULAR HGB CONC 33.3 % (32.0-36.0); MONO % 13.2 % (0.0-8.0); NEUT % 53.6 % (16.0-70.0); PLATELET COUNT 124 TH/MM3 (150-450); RED CELL DISTRIBUTION WIDTH 15.3 % (11.6-17.2); WHITE BLOOD COUNT 5.2 TH/MM3 (4.0-11.0)
[2017-02-18 07:24] LABS: POTASSIUM 3.3 MEQ/L (3.5-5.1)
[2017-02-18 07:46] LABS: BICARBONATE 21.5 MEQ/L (21.0-32.0); INDIRECT BILIRUBIN 1.3 MG/DL (0.0-0.8); MAGNESIUM 1.6 MG/DL (1.5-2.5); TOTAL BILIRUBIN ADULT 2.5 MG/DL (0.2-1.0)
[2017-02-18 08:00] VITALS: BP 102/67; PULSE 93; PULSE 97; RESP 20; TEMP 98.4; O2SAT 97
--- NOTE | 2017-02-18 08:12 | HHI.GIFU ---
GI Follow-up Note Consult Follow-up Subjective: Patient laying in bed comfortably, feeling better.Pain in luq after eating, not new -scheduled for egd on mar 02, if not better we will add colonoscopy.Ileus-resolved Objective: PHYSICAL EXAMINATION: Vitals signs stable No fever Laboratory Tests Test 02/17/17 05:17 02/17/17 19:00 02/18/17 05:35 White Blood Count 5.6 TH/MM3 5.2 TH/MM3 Red Blood Count 3.09 MIL/MM3 3.20 MIL/MM3 Hemoglobin 9.8 GM/DL 10.2 GM/DL Hematocrit 29.5 % 30.6 % Mean Corpuscular Volume 95.7 FL 95.9 FL Mean Corpuscular Hemoglobin 31.7 PG 31.9 PG Mean Corpuscular Hemoglobin Concent 33.2 % 33.3 % Red Cell Distribution Width 15.2 % 15.3 % Platelet Count 123 TH/MM3 124 TH/MM3 Mean Platelet Volume 6.7 FL 6.7 FL Neutrophils (%) (Auto) 55.8 % 53.6 % Lymphocytes (%) (Auto) 20.5 % 22.6 % Monocytes (%) (Auto) 13.7 % 13.2 % Eosinophils (%) (Auto) 8.8 % 10.1 % Basophils (%) (Auto) 1.2 % 0.5 % Neutrophils # (Auto) 3.0 TH/MM3 2.8 TH/MM3 Lymphocytes # (Auto) 1.2 TH/MM3 1.2 TH/MM3 Monocytes # (Auto) 0.8 TH/MM3 0.7 TH/MM3 Eosinophils # (Auto) 0.5 TH/MM3 0.5 TH/MM3 Basophils # (Auto) 0.1 TH/MM3 0.0 TH/MM3 CBC Comment DIFF FINAL DIFF FINAL Differential Comment Blood Urea Nitrogen 3 MG/DL 4 MG/DL Creatinine 0.58 MG/DL 0.57 MG/DL Random Glucose 136 MG/DL 88 MG/DL Total Protein 6.2 GM/DL 6.3 GM/DL Albumin 1.7 GM/DL 1.7 GM/DL Calcium Level 7.0 MG/DL 7.2 MG/DL Phosphorus Level 1.8 MG/DL 2.9 MG/DL Magnesium Level 1.7 MG/DL 1.6 MG/DL Sodium Level 130 MEQ/L 132 MEQ/L Potassium Level 3.6 MEQ/L 3.3 MEQ/L Chloride Level 100 MEQ/L 100 MEQ/L Carbon Dioxide Level 21.3 MEQ/L 21.5 MEQ/L Anion Gap 9 MEQ/L 11 MEQ/L Estimat Glomerular Filtration Rate 110 ML/MIN 112 ML/MIN Protein Corrected Calcium 7.5 MG/DL Stool C. difficile Toxin (PCR) NEGATIVE Stl C. difficile Toxin Epiderm 027 PRESUMPTIVE NEGATIVE Alkaline Phosphatase 173 U/L Aspartate Amino Transf (AST/SGOT) 44 U/L Alanine Aminotransferase (ALT/SGPT) 28 U/L Total Bilirubin 2.5 MG/DL Direct Bilirubin 1.2 MG/DL Indirect Bilirubin 1.3 MG/DL HEENT: Pupils round and reactive to light; normocephalic; atraumatic; jaundice. Throat is clear. NECK: Neck is supple, no JVD, no lymphadenopathy. CHEST: Chest is clear to auscultation and percussion. CARDIAC: Regular rate and rhythm with no murmur gallop or rubs. ABDOMEN: Soft, nondistended, nontender; no hepatosplenomegaly; bowel sounds are present in all four quadrants. EXTREMITIES: No clubbing, cyanosis, or edema. SKIN: Normal; no rash; jaundice. 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 Available Data (labs, X- Rays, Procedues) : ASSESSMENT/PLAN: [id number] indication of sbo ascites -recurrent s/p recent paracentesis-no indication of sbp liver cirrhosis secondary etoh-abstinent at this time colitis on ct possible secondary third sapcing, stoo c diff negative Recommendations advance diet egd/colonoscopy as scheduled op, if not better and remains hospitalized we will do inpt if stable may dc home in 1-2 days avoid etoh/hepatotoxics It was a pleasure seeing Michelle Santamaria. Thank you for this consult. Entered by: Kae Pinon MD Feb 18, 2017 08:11
[2017-02-18 08:57] LABS: CALCIUM-PROTEIN CORRECTED 7.9 MG/DL (8.5-10.1)
[2017-02-18] MEDS: MAGNESIUM SULFATE 1 GM PREMIX 100 ML IV SCH ×2 (09:00→10:00)
[2017-02-18] MEDS ORDERED: POTASSIUM CHLORIDE 20 MEQ CONTROLLED RELEASE TAB PO ONE ×2 (09:00→13:00)
[2017-02-18] MEDS: SODIUM CHLORIDE 0.9% FLUSH 10 ML FLUSH IV FLUSH SCH (09:00)
[2017-02-18] MEDS: RIFAXIMIN 550 MG TAB PO SCH (09:42)
[2017-02-18] MEDS: CIPROFLOXACIN 500 MG TAB PO SCH (09:42)
[2017-02-18] MEDS: SPIRONOLACTONE 50 MG TAB PO SCH (09:42)
[2017-02-18] MEDS: PANTOPRAZOLE SOD 40 MG DELAYED RELEASE TAB PO SCH (09:42)
[2017-02-18] MEDS: LACTULOSE SYRUP 20 GM/30 ML CUP PO SCH (09:42)
[2017-02-18] MEDS: FUROSEMIDE 40 MG TAB PO SCH (09:42)
[2017-02-18 12:14] VITALS: BP 116/78; PULSE 89; RESP 19; TEMP 97.9; O2SAT 100
[2017-02-18] MEDS ORDERED: MAGN400T2 PO (12:36)
[2017-02-18] MEDS ORDERED: LEVO50TA4 PO (12:36)
[2017-02-18] MEDS ORDERED: METR-1 PO (12:36)
[2017-02-18] MEDS ORDERED: ONDA4TAB7 SL (12:36)
[2017-02-18] MEDS ORDERED: POTA10TA2 PO (12:36)
[2017-02-18] MEDS ORDERED: CIPR-9 PO (12:36)
[2017-02-18] MEDS ORDERED: MAGNESIUM OXIDE 400 MG TAB PO ONE (14:00)
[2017-02-18] MEDS ORDERED: POTASSIUM CHLORIDE 10 MEQ CONTROLLED RELEASE TAB PO ONE (14:00)
--- NOTE | 2017-02-21 15:37 | HHI.PR ---
Subjective Remarks Patient seen on the morning of 02/18. Feeling much better. Denies any chest pain or shortness of breath. Tolerating food. Would like to go home. Objective Result Diagram: 02/18/1735 02/18/1735 Objective Remarks GENERAL: patient sitting up in bed. Appears comfortable. Alert and oriented x3. SKIN: Warm and dry. HEAD: Normocephalic. EYES: No scleral icterus. No injection or drainage. NECK: Supple, trachea midline. No JVD. CARDIOVASCULAR: Regular rate and rhythm without murmurs, gallops, or rubs. RESPIRATORY: Breath sounds equal bilaterally. No accessory muscle use. GASTROINTESTINAL: Abdomen soft, distended. Nontender. No rebound or guarding. MUSCULOSKELETAL: No cyanosis, or edema. BACK: Nontender without obvious deformity. No CVA tenderness. A/P Assessment and Plan ==02/18/17========= //Colitis as seen on CT. continue Cipro and Flagyl. //Hypokalemia. Potassium 3.3. Replaced.. //Hypomagnesemia. 1.6 Resolved after replacement. //Hyponatremia. Sodium 132 up from 130. Tolerating by mouth fluids. Continue to Hold IV fluids. //Hypothyroidism. Patient initially hypothyroid, however appears to be supratherapeutic on dosage. Holding for several days. We'll restart lower dose at home. //Nausea and vomiting. Appears to be improved. //Profuse diarrhea reported by patient. Negative C. difficile. Likely this is secondary to lactulose. //Hepatic encephalopathy. Ammonia 86 most recently. She is alert and oriented 3. Continue lactulose and rifaximin. 57 year-old female with cirrhosis of the liver due to alcoholism presents with intractable nausea and vomiting for 5 days Assessment: //Intractable nausea and vomiting //Hyponatremia //Hypokalemia //Abnormal urinalysis //Alcoholic cirrhosis of the liver, ascites with regular paracentesis //History of esophageal varices //History of hospitalizations for hepatic encephalopathy //Depression //History of anorexia with bulimia //Hypothyroidism place in observation, give gentle IV fluids D5 1/2 NS with 20 meq Kcl/L, anti- emetics. Replace her potassium. GI has been consulted. We'll follow-up abdominal x-ray ordered in the emergency department. Continue lactulose and rifaximin. Will start Rocephin pending results of urine culture. Continue Synthroid. Monitor ammonia levels. Currently mentation is clear but she does have risk for hepatic encephalopathy. Caution with pain medications. Monitor labs/electrolytes. DVT prophylaxis with SCDs. Discharge Planning discharge home. Follow-up with gastroenterology as outpatient. Jem Raimrez MD Feb 21, 2017 15:37
--- NOTE | 2017-02-21 15:42 | HHI.DS ---
Discharge Summary Admission Date Feb 15, 2017 at 08:08 Discharge Date: Feb 18, 2017 Admitting Diagnosis vomiting/dehydration/hyponatremia (1) Nausea and vomiting ICD Code: R11.2 - Nausea with vomiting, unspecified Status: Acute (2) Alcoholic cirrhosis of liver ICD Code: K70.30 - Alcoholic cirrhosis of liver without ascites Status: Acute (3) Hyperammonemia ICD Code: E72.20 - Hyperammonemia Status: Acute (4) Hyponatremia ICD Code: E87.1 - Hypo-osmolality and hyponatremia Status: Acute (5) Hypokalemia ICD Code: E87.6 - Hypokalemia Status: Acute (6) Ascites ICD Code: R18.8 - Other ascites Status: Acute (7) Abdominal pain ICD Code: R10.9 - Unspecified abdominal pain Status: Acute Procedures No invasive procedures. Brief History - From Admission This is a 57-year-old female with long-standing history of cirrhosis due to alcoholism who presents with a five-day history of nausea and vomiting, she has been unable to keep any food down including broth. The patient also complains of diffuse abdominal pain which is typical for ascites. She presented to the ER for this last night and was requested for observation. The patient undergoes routine paracentesis with the last being February 08. [facility]. The patient denies fever or chills. She denies hematochezia, melena, hematemesis. Denies dysuria. She does endorse night sweats. She denies any recent confusion. She states she has been compliant with lactulose. CBC/BMP: 02/18/17 0535 02/18/17 0535 Imaging Last Impressions Abdomen/Pelvis CT 02/16/17 0000 Signed Impressions: Service Date/Time: Thursday, February 16, 2017 21:34 - CONCLUSION: 1. Diffuse mural thickening of the colon most characteristic of a mild colitis. 2. Liver cirrhosis with moderate ascites. 3. No bowel obstruction or free air. 4. Splenomegaly to 15 cm. Rogelio Lynch MD Abdomen X-Ray 02/16/17 0000 Signed Impressions: Service Date/Time: Thursday, February 16, 2017 06:15 - CONCLUSION: 1. Persistent gaseous distention of bowel most characteristic of an ileus, or possibly partial obstruction.. Rogelio Lynch MD Hospital Course Intractable nausea and vomiting was treated with antiemetics with improvement. She was continued on lactulose for hepatic encephalopathy. She did have profuse diarrhea, however this is likely secondary lactulose. C. difficile tested and negative. CT abdomen showed colitis. Patient was treated with broad -spectrum antibiotics with improvement, and will be continued on Cipro and Flagyl at home.. Patient did have some hypokalemia, as well as hypomagnesemia during admission, and will be sent home with supplementation. TSH was also found to be very low, and patient's dose of Synthroid was decreased. She will need a follow-up with primary care for this. Patient conveys understanding. Gastroenterology consulted during admission, will see patient in clinic. For problem-based summary for most recent progress note, please see below. ==02/18/17========= //Colitis as seen on CT. continue Cipro and Flagyl. //Hypokalemia. Potassium 3.3. Replaced.. //Hypomagnesemia. 1.6 Resolved after replacement. //Hyponatremia. Sodium 132 up from 130. Tolerating by mouth fluids. Continue to Hold IV fluids. //Hypothyroidism. Patient initially hypothyroid, however appears to be supratherapeutic on dosage. Holding for several days. We'll restart lower dose at home. //Nausea and vomiting. Appears to be improved. //Profuse diarrhea reported by patient. Negative C. difficile. Likely this is secondary to lactulose. //Hepatic encephalopathy. Ammonia 86 most recently. She is alert and oriented 3. Continue lactulose and rifaximin. 57 year-old female with cirrhosis of the liver due to alcoholism presents with intractable nausea and vomiting for 5 days Assessment: //Intractable nausea and vomiting //Hyponatremia //Hypokalemia //Abnormal urinalysis //Alcoholic cirrhosis of the liver, ascites with regular paracentesis //History of esophageal varices //History of hospitalizations for hepatic encephalopathy //Depression //History of anorexia with bulimia //Hypothyroidism place in observation, give gentle IV fluids D5 1/2 NS with 20 meq Kcl/L, anti- emetics. Replace her potassium. GI has been consulted. We'll follow-up abdominal x-ray ordered in the emergency department. Continue lactulose and rifaximin. Will start Rocephin pending results of urine culture. Continue Synthroid. Monitor ammonia levels. Currently mentation is clear but she does have risk for hepatic encephalopathy. Caution with pain medications. Monitor labs/electrolytes. DVT prophylaxis with SCDs. Pt Condition on Discharge: Good Discharge Disposition: Discharge Home Discharge Time: > 30 minutes Discharge Instructions DIET: Follow Instructions for: As Tolerated, No Restrictions Activities you can perform: Regular-No Restrictions Follow up Referrals: Gastroenterology - 1 Week with Kae Woodson MD PCP Follow-up - 1 Week with David Vo MD New Medications: Levothyroxine (Levothyroxine) 50 Mcg Tab 50 MCG PO DAILY for Thyroid, #30 TAB 0 Refills Magnesium Oxide (Magnesium Oxide) 400 Mg Tab 400 MG PO DAILY for Nutritional Supplement for 30 Days, TAB 0 Refills Ondansetron Odt (Ondansetron Odt) 4 Mg Tab 4 MG SL Q6HR PRN for Nausea/Vomiting, #28 TAB 0 Refills Potassium Chloride ER (Potassium Chloride ER) 10 Meq Tab 10 MEQ PO DAILY for Electrolyte Replacement, #30 TAB 0 Refills Ciprofloxacin (Cipro) 500 Mg Tab 500 MG PO Q12HR for colitis for 10 Days, TAB Metronidazole (Flagyl) 500 Mg Tab 500 MG PO Q8HR for colitis for 10 Days, TAB Continued Medications: Furosemide (Furosemide) 40 Mg Tab 40 MG PO DAILY, #30 TAB 0 Refills Lactulose Liq (Lactulose Liq) 10 Gm/15 Ml Soln 30 ML PO BID PRN for titrate to 3-4 bm, ML 0 Refills Oxycodone (Roxicodone) 5 Mg Tab 5 MG PO Q8HR for Pain Management, #10 TAB 0 Refills USE SPARRINGLY POSSIBLE Pantoprazole (Pantoprazole) 40 Mg Tab 40 MG PO DAILY for Reflux, #30 TAB 0 Refills Rifaximin (Xifaxan) 550 Mg Tab 550 MG PO BID for Liver, #60 TAB Spironolactone (Aldactone) 50 Mg Tab 50 MG PO BID@09,18 for Liver, #60 TAB Discontinued Medications: Levothyroxine (Levothyroxine) 50 Mcg Tab 125 MCG PO DAILY for Thyroid, #0 TAB 0 Refills Jem Ramirez MD Feb 21, 2017 15:42
== END 2017-02-18 13:48 | disposition home or self-care (01) | DRG 389 ==
LOC: PHED 05:28 → PHEDA 07:53 → OBSVTOIN 08:08 → PH3B 09:29
PROVIDERS: ADMIT Internal Medicine; ATTEND Internal Medicine
DX: K56.7 Ileus, unspecified (principal); E87.1 Hypo-osmolality and hyponatremia; K70.31 Alcoholic cirrhosis of liver with ascites; K72.90 Hepatic failure, unspecified without coma; K52.9 Noninfective gastroenteritis and colitis, unspecified; E83.42 Hypomagnesemia; E87.6 Hypokalemia; F32.9 Major depressive disorder, single episode, unspecified; E03.9 Hypothyroidism, unspecified; E86.0 Dehydration; Z86.59 Personal history of other mental and behavioral disorders
CPT/HCPCS: 74020; 74177; 76937; 80053; 80069; 80076; 81001; 82140; 83690; 83735; 84155; 84443; 85025; 85610; 85730; 87086; 87493; 96361; 96372; 96374; 96375; 96376; G8987-GP; G8988-GP; J0696; J1170; J2405; J2550; J2765; J3475; J3480; J7030; Q9963; Q9967

== ENCOUNTER 2017-02-23 17:53 | Inpatient (IN) | payer MEDICAID ==
[~2017-02-23] VITALS: Ht 162.6 cm; Wt 61.4 kg
[2017-02-23] VITALS (8 sets, daily range): BP systolic 73–98; BP diastolic 35–50; PULSE 61–72; RESP 16–18; TEMP 98.4; O2SAT 61–100
[~2017-02-23 17:53] MED LIST changes: +CIPR-9 PO; +MAGN400T2 PO; +METR-1 PO; +ONDA4TAB7 SL; +POTA10TA2 PO
[2017-02-23] MEDS ORDERED: SODIUM CHLORIDE 0.9% FLUSH 10 ML FLUSH IV FLUSH PRN ×2 (19:15→22:45)
[2017-02-23] MEDS ORDERED: HYDROmorphone HCL PF 1 MG/ML VIAL IV PUSH ONE (19:15)
[2017-02-23] MEDS ORDERED: ONDANSETRON HCL 4 MG/2 ML VIAL IV PUSH ONE (19:15)
[2017-02-23] MEDS ORDERED: SODIUM CHLORID 0.9% 500 ML INJ 500 ML IV ONE ×2 (19:15→20:30)
--- NOTE | 2017-02-23 19:20 | PD ---
HPI Chief Complaint: Abdominal Pain Time Seen by Provider: 19:18 Travel History International Travel<30 days: No Contact w/Intl Traveler<30days: No Traveled to known affect area: No History of Present Illness HPI 51-year-old female presents to the emergency department by private transportation the care of her spouse for evaluation of abdominal pain. Complains of sharp stabbing right upper quadrant abdominal pain. Pain is unremitting; 8-10/10 in intensity. Patient is been taking prescription oxycodone without symptomatically. No fever no chills no nausea no vomiting or diarrhea. Patient reportedly has been having bowel movements. Patient is status post cholecystectomy. Patient has history of chronic cirrhotic liver disease secondary to prior alcohol abuse. Patient rates pain as severe and unremitting. Patient also has history of ascites and is scheduled for paracentesis in 2 weeks. Patient was recently hospitalized last Tuesday through Tuesday for colitis, dehydration, and hyponatremia. Patient was discharged to home and on Tuesday started to develop sharp right upper quadrant abdominal pain. Patient is unable to identify exacerbating or alleviating factors. Patient has been drinking fluids but has noted decreased appetite. Patient is not noticed increase in abdominal. No report of hematemesis coffee- ground emesis melena hematochezia. Patient denies any alcohol use. Patient reports that Tuesday she did contact her ep specialist office Dr. Hayes and was encouraged to come to the emergency department if symptoms worsen. [facility] Past Medical History Narrative Medical Arthritis asthma anxiety depression cirrhosis ascites alcoholism esophageal varices GI bleed cholecystectomy hypothyroidism; no alcohol use no tobacco use; nursing notes reviewed Hx Anticoagulant Therapy: No Arthritis: Yes Asthma: Yes Autoimmune Disease: No Anxiety: Yes Depression: Yes Heart Rhythm Problems: No Cancer: No Cardiovascular Problems: No High Cholesterol: No Chemotherapy: No Chest Pain: No Congestive Heart Failure: No Cirrhosis: Yes (end stage) COPD: No Cerebrovascular Accident: No Diabetes: No Diminished Hearing: No Endocrine: Yes Gastrointestinal Disorders: Yes (HX OF UPPER GI BLEED;ESOPHAGEAL VARICES ; BLEEDING ULCERS) GERD: No Genitourinary: No Headaches: No Hepatitis: Yes (ALCOHOLIC HEPATITIS) Hiatal Hernia: Yes Heparin Induced Thrombocytopen: No Hypertension: No Immune Disorder: No Implanted Vascular Access Dvce: No Kidney Stones: No Medical other: Yes (ESOPHAGEAL VARICES; LIVER CIRRHOSIS; THROMBOCYTOPENIA ;) Musculoskeletal: No Neurologic: No Psychiatric: Yes Reproductive: No Respiratory: No Immunizations Current: Yes Migraines: No Radiation Therapy: No Renal Failure: No Seizures: No Sickle Cell Disease: No Sleep Apnea: No Thyroid Disease: Yes (Hypothyroidism) Ulcer: No Tetanus Vaccination: Unknown ?: Not Menopausal: Yes Past Surgical History Abdominal Surgery: Yes (lap benjamin,umbilical hernia repair) AICD: No Body Medical Devices: NONE Cardiac Surgery: No Cholecystectomy: Yes (2006) Ear Surgery: No Endocrine Surgery: No Eye Surgery: No Genitourinary Surgery: No Gynecologic Surgery: No Hysterectomy: No Insulin Pump: No Joint Replacement: Yes (LEFT HIP REPLACEMENT) Neurologic Surgery: No Oral Surgery: No Pacemaker: No Thoracic Surgery: No Other Surgery: Yes (Cholecystectomy) Social History Alcohol Use: No (H/O ALCOHOLISM ) Tobacco Use: No Substance Use: No Allergies-Medications (Allergen,Severity, Reaction): Coded Allergies: codeine (Unverified Allergy, Severe, VOMITING, 02/23/17) MILD REACTION- VOMITING morphine (Unverified Allergy, Severe, PT DENIES, 02/23/17) MILD REACTION aspirin (Unverified Adverse Reaction, Severe, Bleeding, 02/23/17) STOMACH "BLEEDS" PER PT ; SEVERE REACTION nortriptyline (Unverified Adverse Reaction, Severe, Hallucinations, ) vomiting ; INTERMEDIATE REACTION Reported Meds & Prescriptions Reported Meds & Active Scripts Active Potassium Chloride ER (Potassium Chloride) 10 Meq Tab 10 Meq PO DAILY Magnesium Oxide 400 Mg Tab 400 Mg PO DAILY 30 Days Ondansetron Odt 4 Mg Tab 4 Mg SL Q6HR PRN Flagyl (Metronidazole) 500 Mg Tab 500 Mg PO Q8HR 10 Days Levothyroxine (Levothyroxine Sodium) 50 Mcg Tab 50 Mcg PO DAILY Cipro (Ciprofloxacin HCl) 500 Mg Tab 500 Mg PO Q12HR 10 Days Roxicodone (Oxycodone HCl) 5 Mg Tab 5 Mg PO Q8HR USE SPARRINGLY POSSIBLE Aldactone (Spironolactone) 50 Mg Tab 50 Mg PO BID@ Xifaxan (Rifaximin) 550 Mg Tab 550 Mg PO BID Reported Lactulose Liq (Lactulose) 10 Gm/15 Ml Soln 30 Ml PO BID PRN Pantoprazole (Pantoprazole Sodium) 40 Mg Tab 40 Mg PO DAILY Furosemide 40 Mg Tab 40 Mg PO DAILY Review of Systems Except as stated in HPI: all other systems reviewed are Neg General / Constitutional: No: Fever, Weight Loss HENT: No: Sore Throat, Congestion Cardiovascular: No: Chest Pain or Discomfort Respiratory: No: Shortness of Breath Gastrointestinal: Positive: Abdominal Pain, Loss of Appetite, No: Nausea, Vomiting, Diarrhea, Hematemesis, Hematochezia Genitourinary: No: Dysuria, Decreased Urinary Output Musculoskeletal: No: Myalgias, Arthralgias, Cramping Skin: No Rash Neurologic: No: Weakness Psychiatric: No: Anxiety Endocrine: No: Heat Intolerance Hematologic/Lymphatic: No: Easy Bruising Physical Exam Narrative GENERAL: Well developed well nourished female in discomfort no respiratory distress SKIN: Warm and dry. HEAD: Normocephalic. EYES: No scleral icterus. No injection or drainage. NECK: Supple, trachea midline. No JVD or lymphadenopathy. CARDIOVASCULAR: Regular rate and rhythm without murmurs, gallops, or rubs. RESPIRATORY: Breath sounds equal bilaterally. No accessory muscle use. GASTROINTESTINAL: Abdomen soft, tender RUQ and epigastric distribution, soft non -tense distended, fluid wave. Rectal exam: Normal sphincter tone brown stool/ mucus on exam glove; no gross blood identified. MUSCULOSKELETAL: No cyanosis, or edema. BACK: Nontender without obvious deformity. No CVA tenderness. Data Data Last Documented VS Vital Signs Date Time Temp Pulse Resp B/P (MAP) Pulse Ox O2 Delivery O2 Flow Rate FiO2 02/23/17 22:33 61 18 81/35 (50) 61 Room Air 02/23/17 18:23 98.4 Orders Orders Complete Blood Count With Diff (02/23/17 19:15) Comprehensive Metabolic Panel (02/23/17 19:15) Lipase (02/23/17 19:15) Lactic Acid (02/23/17 19:15) Prothrombin Time / Inr (Pt) (02/23/17 19:15) Act Partial Throm Time (Ptt) (02/23/17 19:15) Urinalysis - C+S If Indicated (02/23/17 19:15) Iv Access Insert/Monitor (02/23/17 19:15) Ecg Monitoring (02/23/17 19:15) Oximetry (02/23/17 19:15) Sodium Chloride 0.9% Flush (Ns Flush) (02/23/17 19:15) Chest, Single Ap (02/23/17 19:15) Blood Culture (02/23/17 19:15) Magnesium (Mg) (02/23/17 19:15) Ondansetron Inj (Zofran Inj) (02/23/17 19:15) Hydromorphone Pf Inj (Dilaudid Pf Inj) (02/23/17 19:15) Sodium Chlorid 0.9% 500 Ml Inj (Ns 500 M (02/23/17 19:15) Ammonia (02/23/17 19:27) Ct Abd/Pel W/O Iv Contrast (02/23/17 ) Piperacil-Tazo 3.375 Gm Premix (Zosyn 3. (02/23/17 20:30) Sodium Chlorid 0.9% 500 Ml Inj (Ns 500 M (02/23/17 20:30) Sodium Chlor 0.9% 1000 Ml Inj (Ns 1000 M (02/23/17 21:45) Admit To Inpatient (02/23/17 ) Vital Signs (Adult) Q4H (02/23/17 22:34) Activity Oob With Assistance (02/23/17 22:34) Violin Maker Hand / Telemetry .CONTINUOUS (02/23/17 22:34) Intake + Output COCO.QSHIFT (02/23/17 22:34) Diet Heart Healthy (02/24/17 Breakfast) Sodium Chloride 0.9% Flush (Ns Flush) (02/23/17 22:45) Sodium Chloride 0.9% Flush (Ns Flush) (02/24/17 09:00) Basic Metabolic Panel (Bmp) (02/24/17 06:00) Complete Blood Count With Diff (02/24/17 06:00) Case Management Consult (02/23/17 22:34) Naloxone Inj (Narcan Inj) (02/23/17 22:45) Inpatient Certification (02/23/17 ) Ciprofloxacin 400 Mg Premix (Cipro 400 M (02/23/17 23:00) Admit Order (Ed Use Only) (02/23/17 ) ^ Saline Lock (02/23/17 22:37) Resp Oxygen Aldair C Titrat 1-4 L (02/23/17 ) Notify Dr: Other (02/23/17 22:37) Sodium Chloride 0.9% Flush (Ns Flush) (02/24/17 09:00) Sodium Chloride 0.9% Flush (Ns Flush) (02/23/17 22:45) Metronidazole 500 Mg Inj (Flagyl 500 Mg (02/24/17 00:00) Us Guided Abd Paracentesis (02/24/17 ) Protein Corrected Calcium(Pcc) (02/24/17 05:05) Labs Laboratory Tests Test 02/23/17 19:22 02/23/17 19:28 02/23/17 20:35 White Blood Count 5.9 TH/MM3 Red Blood Count 3.21 MIL/MM3 Hemoglobin 10.2 GM/DL Hematocrit 30.9 % Mean Corpuscular Volume 96.1 FL Mean Corpuscular Hemoglobin 31.7 PG Mean Corpuscular Hemoglobin Concent 33.0 % Red Cell Distribution Width 15.1 % Platelet Count 129 TH/MM3 Mean Platelet Volume 7.2 FL Neutrophils (%) (Auto) 59.3 % Lymphocytes (%) (Auto) 16.9 % Monocytes (%) (Auto) 17.9 % Eosinophils (%) (Auto) 5.4 % Basophils (%) (Auto) 0.5 % Neutrophils # (Auto) 3.5 TH/MM3 Lymphocytes # (Auto) 1.0 TH/MM3 Monocytes # (Auto) 1.0 TH/MM3 Eosinophils # (Auto) 0.3 TH/MM3 Basophils # (Auto) 0.0 TH/MM3 CBC Comment DIFF FINAL Differential Comment Prothrombin Time 18.7 SEC Prothromb Time International Ratio 1.7 RATIO Activated Partial Thromboplast Time 37.3 SEC Blood Urea Nitrogen 14 MG/DL Creatinine 2.00 MG/DL Random Glucose 172 MG/DL Total Protein 6.4 GM/DL Albumin 1.6 GM/DL Calcium Level 7.9 MG/DL Magnesium Level 1.8 MG/DL Alkaline Phosphatase 135 U/L Aspartate Amino Transf (AST/SGOT) 43 U/L Alanine Aminotransferase (ALT/SGPT) 28 U/L Total Bilirubin 2.2 MG/DL Sodium Level 127 MEQ/L Potassium Level 4.3 MEQ/L Chloride Level 96 MEQ/L Carbon Dioxide Level 20.6 MEQ/L Anion Gap 10 MEQ/L Estimat Glomerular Filtration Rate 26 ML/MIN Ammonia 22 MCMOL/L Lipase 130 U/L Lactic Acid Level 3.3 mmol/L Urine Color BROWN Urine Turbidity SLIGHT Urine pH 5.0 Urine Specific [place] 1.016 Urine Protein TRACE mg/dL Urine Glucose (UA) NEG mg/dL Urine Ketones TRACE mg/dL Urine Occult Blood NEG Urine Nitrite NEG Urine Bilirubin NEG Urine Leukocyte Esterase TRACE Urine RBC 0-3 /hpf Urine WBC 0-2 /hpf Urine Squamous Epithelial Cells 6-8 /hpf Urine Hyaline Casts 20-24 /lpf Microscopic Urinalysis Comment CULT NOT INDICATED MDM Medical Decision Making Medical Screen Exam Complete: Yes Emergency Medical Condition: Yes Medical Record Reviewed: Yes Interpretation(s) CT abd/pel w/o contrast: CONCLUSION: 1. Cirrhotic liver with a moderate to large amount of ascites. 2. 2 cm mass in the left lobe of the liver representing a cyst. This has gotten smaller over time. It was shown to represent a cyst on a prior MRI examination. 3. Splenomegaly. This is likely secondary to the hepatic abnormality and portal hypertension. David Fernandez MD on February 23, 2017 at 21:50 Last Impressions Chest X-Ray 02/23/17 1915 Signed Impressions: Service Date/Time: Thursday, February 23, 2017 19:54 - CONCLUSION: No acute disease. David Fernandez MD CBC & BMP Diagram 02/23/17 19:22 Total Protein 6.4, Albumin 1.6 L, Calcium Level 7.9 L, Magnesium Level 1.8, Alkaline Phosphatase 135 H, Aspartate Amino Transf (AST/SGOT) 43 H, Alanine Aminotransferase (ALT/SGPT) 28, Total Bilirubin 2.2 H, lipase 1:30, not elevated Lactic acid: 3.3, elevated Serum ammonia: 22, not elevated Urinalysis positive for small ketones small leukocyte Estrace and hyaline casts culture is not indicated Taz a patient's that is mildly prolonged Differential Diagnosis Peptic ulcer disease, gastritis, pancreatitis, colitis, perforated viscus, spontaneous bacterial peritonitis, dehydration, electrolyte disturbance Narrative Course IV access obtained specimens collected and sent for resulting including blood culture and lactic acid along with serum ammonia; patient given bolus of normal saline 500 cc times one dose as well as Zofran 4 mg IV and Dilaudid 0.2 mg IV Patient with additional normal saline bolus and blood pressure remains in the 90s/upper 80s additional bolus of normal saline administered total white cell count in normal range automated differential no left shift or neutrophilia; however lactic acid is elevated at 3.3 and bicarbonate is 20.6 mildly decreased ; review of abdominal pain with history of ascites patient given Zosyn 3.375 g IV piggyback with plan of additional dose of vancomycin to cover for spontaneous bacterial peritonitis; patient remains afebrile without tachycardia GCS 15; patient is currently on Cipro and Flagyl as an outpatient for diagnosis of colitis. At 10:[address] abdomen and pelvis resulted shows moderate ascites is increased from moderate to moderate to large ascites otherwise no acute process noted; patient GCS 15; patient receiving second bolus of normal saline 500 cc with plan for additional 500 cc bolus for blood pressure maintenance however will need to have paracentesis for ascites and need ongoing IV fluids for maintenance of intravascular volume. Patient is aware of plan for admission. Call placed to [facility] service. Critical Care Narrative Aggregate critical care time was 35 minutes. Time to perform other separately billable procedures was not included in the critical care time. My time did not include minutes spent treating any other patients simultaneously or on activities that did not directly contribute to the patient's treatment. The services I provided to this patient were to treat and/or prevent clinically significant deterioration that could result in: Sepsis, hypovolemic shock, I provided critical care services requiring my management, as noted below: Chart data review, documentation time, medication orders and management, vital sign assessments/reviewing monitor data, ordering and reviewing lab tests, ordering and interpreting/reviewing x-rays and diagnostic studies, care of the patient and discussion of the patient with the admitting physicians. [facility] Point of Care Internal Pos. & Neg. Controls: Passed Fecal Specimen Occult Blood: Positive Sepsis Criteria Severe Sepsis (+one): Lactate >2 Physician Communication Physician Communication call placed to [facility] --discussed with Dr Crabtree -- admit symptomatic ascites Diagnosis Primary Impression: Abdominal pain Qualified Codes: R10.11 - Right upper quadrant pain Additional Impressions: Ascites Qualified Codes: K70.31 - Alcoholic cirrhosis of liver with ascites Acute renal insufficiency Heme positive stool Thrombocytopenia Admitting Information Admitting Physician Requests: it Kerrie Boyle MD Feb 23, 2017 19:20
[2017-02-23 19:43] LABS: AUTOMATED NEUTROPHIL # 3.5 TH/MM3 (1.8-7.7); BASOPHIL % 0.5 % (0.0-2.0); EOSINOPHIL # 0.3 TH/MM3 (0-0.4); EOSINOPHIL % 5.4 % (0.0-4.0); HEMATOCRIT 30.9 % (35.0-46.0); HEMO FLAGS DIFF FINAL; LYMPH % 16.9 % (9.0-44.0); MEAN CELL VOLUME 96.1 FL (80.0-100.0); MEAN CORPUSCULAR HEMOGLOBIN 31.7 PG (27.0-34.0); MONO % 17.9 % (0.0-8.0); NEUT % 59.3 % (16.0-70.0); PLATELET COUNT 129 TH/MM3 (150-450); RED BLOOD COUNT 3.21 MIL/MM3 (4.00-5.30); RED CELL DISTRIBUTION WIDTH 15.1 % (11.6-17.2); WHITE BLOOD COUNT 5.9 TH/MM3 (4.0-11.0)
[2017-02-23 19:49] LABS: CHLORIDE 96 MEQ/L (98-107); POTASSIUM 4.3 MEQ/L (3.5-5.1); SODIUM (NA) 127 MEQ/L (136-145)
[2017-02-23 19:53] LABS: ANION GAP 10 MEQ/L (5-15); APTT (PATIENT) 37.3 SEC (24.3-30.1); BICARBONATE 20.6 MEQ/L (21.0-32.0); BLOOD UREA NITROGEN 14 MG/DL (7-18); INTERNATIONAL NORMALIZED RATIO 1.7 RATIO; MAGNESIUM 1.8 MG/DL (1.5-2.5); PROTHROMBIN TIME - PATIENT 18.7 SEC (9.8-11.6)
[2017-02-23 19:55] LABS: ALT (GPT) 28 U/L (10-53); AST (GOT) 43 U/L (15-37)
[2017-02-23 19:56] LABS: GLOMERULAR FILTRATION RATE 26 ML/MIN (>89)
[2017-02-23 19:57] LABS: TOTAL BILIRUBIN ADULT 2.2 MG/DL (0.2-1.0)
[2017-02-23 19:58] LABS: ALKALINE PHOSPHATASE 135 U/L (45-117)
--- NOTE | 2017-02-23 20:25 | RADRPT ---
EXAM DATE/TIME: 02/23/2017 19:54 [facility] COMPARISON: CHEST SINGLE AP, February 05, 2017, 21:26. INDICATIONS : Lower chest pain. MEDICAL HISTORY : Cirrhosis. Hepatitis. Thrombocytopenia. SURGICAL HISTORY : Cholecystectomy. Umbilical hernia repair.Hip replacement, left. ENCOUNTER: Initial ACUITY: 3 days PAIN SCORE: 10/10 LOCATION: Bilateral lower chest FINDINGS: A single view of the chest demonstrates the lungs to be symmetrically aerated without evidence of mas s, infiltrate or effusion. The cardiomediastinal contours are unremarkable. Osseous structures are intact. CONCLUSION: No acute disease. David Fernandez MD on February 23, 2017 at 20:23 Board Certified Radiologist. This report was verified electronically.
[2017-02-23] MEDS ORDERED: PIPERACIL-TAZO 3.375 GM PREMIX 50 ML IV ONE (20:30)
[2017-02-23 20:49] LABS: BLOOD, URINE NEG (NEG); GLUCOSE,URINE NEG (NEG); KETONE, URINE TRACE mg/dL (NEG); NITRITE,URINE NEG (NEG)
[2017-02-23 20:53] LABS: URINE COLOR BROWN (YELLW/STRAW)
[2017-02-23 20:54] LABS: RBC, URINE 0-3 /hpf (0-3); WBC, URINE 0-2 /hpf (0-5)
[2017-02-23 20:55] LABS: COMMENT (UR) CULT NOT INDICATED; CULTURE IF INDICATED CULT NOT INDICATED
[2017-02-23] MEDS ORDERED: SODIUM CHLOR 0.9% 1000 ML INJ 1,000 ML IV ONE (21:45)
--- NOTE | 2017-02-23 22:07 | RADRPT ---
EXAM DATE/TIME: 02/23/2017 21:14 [facility] COMPARISON: US ABDOMEN - LOWER LIMITED, February 03, 2017, 16:40. CHEST SINGLE AP, February 05, 2017, 21:26. CT ABDOMEN & PELVIS W CONTRAST, February 16, 2017, 21:34. CT ABDOMEN & PELVIS W/O CO NTRAST, November 26, 2016, 23:01. INDICATIONS : Right upper quadrant pain. ORAL CONTRAST: No oral contrast ingested. RADIATION DOSE: 7.78 CTDIvol (mGy) MEDICAL HISTORY : Cirrhosis. Hepatitis. SURGICAL HISTORY : Cholecystectomy. Umbilical hernia repair. ENCOUNTER: Initial ACUITY: 3 days PAIN SCALE: 8/10 LOCATION: Right upper quadrant TECHNIQUE: Volumetric scanning of the abdomen and pelvis was performed. Using automated exposure control and adjustment of the mA and/or kV according to patient size, radiation dose was kept as low as reasonably achievable to obtain optimal diagnostic quality images. DICOM format image data is av ailable electronically for review and comparison. FINDINGS: There is a cirrhotic appearing liver. There is hypertrophy of the left lobe and caudat e and atrophy of the right lobe. The liver surface is nodular. There is a moderate to large amount of ascites seen throughout the peritoneal cavity. There is a 2 cm mass seen at the left lobe of the liver. This appears smaller on the current exam. The spleen is enlarged measuring 14 cm in length. No focal splenic lesions are seen. The pancreas, a drenal glands and kidneys are unremarkable. The bowel is unremarkable. The patient is status post c holecystectomy. The pelvic structures appear grossly intact. There is a left hip prosthesis in plac e. There is some minimal dependent atelectasis at the lung bases. CONCLUSION: 1. Cirrhotic liver with a moderate to large amount of ascites. 2. 2 cm mass in the left lobe of the liver representing a cyst. This has gotten smaller over time. I t was shown to represent a cyst on a prior MRI examination. 3. Splenomegaly. This is likely secondary to the hepatic abnormality and portal hypertension. David Fernandez MD on February 23, 2017 at 21:50 Board Certified Radiologist. This report was verified electronically.
[2017-02-23] MEDS ORDERED: NALOXONE HCL 0.4 MG/ML AMP IV PRN (22:45)
[2017-02-23] MEDS ORDERED: SODIUM CHLORIDE 0.9% FLUSH 10 ML FLUSH IVF PRN (22:45)
[2017-02-23] MEDS: CIPROFLOXACIN 400 MG PREMIX 200 ML IV SCH (22:59)
[2017-02-24] VITALS (14 sets, daily range): BP systolic 80–92; BP diastolic 42–58; PULSE 60–68; RESP 16–18; TEMP 97–98.5; O2SAT 96–100
[2017-02-24] MEDS: metroNIDAZOLE 500 MG INJ 100 ML IV SCH ×4 (00:04→19:09)
[2017-02-24 05:34] LABS: BASOPHIL # 0.1 TH/MM3 (0-0.2); BASOPHIL % 1.8 % (0.0-2.0); EOSINOPHIL # 0.4 TH/MM3 (0-0.4); EOSINOPHIL % 8.7 % (0.0-4.0); HEMATOCRIT 29.3 % (35.0-46.0); HEMO FLAGS DIFF FINAL; LYMPH % 24.1 % (9.0-44.0); LYMPHOCYTE # 1.1 TH/MM3 (1.0-4.8); MEAN CELL VOLUME 93.3 FL (80.0-100.0); MEAN CORPUSCULAR HEMOGLOBIN 30.6 PG (27.0-34.0); MEAN CORPUSCULAR HGB CONC 32.7 % (32.0-36.0); MONO % 17.7 % (0.0-8.0); NEUT % 47.7 % (16.0-70.0); PLATELET COUNT 122 TH/MM3 (150-450); RED BLOOD COUNT 3.14 MIL/MM3 (4.00-5.30); RED CELL DISTRIBUTION WIDTH 14.6 % (11.6-17.2); WHITE BLOOD COUNT 4.4 TH/MM3 (4.0-11.0)
[2017-02-24 05:42] LABS: POTASSIUM 4.1 MEQ/L (3.5-5.1)
[2017-02-24 06:01] LABS: BICARBONATE 23.4 MEQ/L (21.0-32.0)
[2017-02-24] MEDS ORDERED: SODIUM CHLORIDE 0.9% FLUSH 10 ML FLUSH IV FLUSH SCH (09:00)
[2017-02-24] MEDS: SODIUM CHLORIDE 0.9% FLUSH 10 ML FLUSH IV FLUSH SCH ×2 (09:22→21:00)
--- NOTE | 2017-02-24 11:43 | HHI.HP ---
[facility] David Vo MD Admission Diagnosis Abdominal pain w/cirrhotic ascites; ARF;elevated lactic ac Diagnoses: Chief Complaint: Abdominal pain Travel History International Travel<30 Days: No Contact w/Intl Traveler <30 Da: No Traveled to Known Affected Are: No History of Present Illness Patient seen in ER after complaining of new right sided abdominal pain after recently being discharged to the hospital 02/21 after supportive and conservative treatment of ileus. The bedtime patient had left-sided sided abdominal pain. Tonight the pain is 7 out of 10 localized under the liver border. She had run out of her oxycodone. She denies constipation and has been having appropriate bowel movements per her report. 2 weeks ago she had a paracentesis. She denies fever or chills but notes that her abdomen is more distended and feels as if she has more fluid in the abdomen. She has had decreased appetite but no hematemesis or emesis. There is no melena. She does follow-up with advanced gastroenterology. Review of Systems Constitutional: DENIES: Diaphoretic episodes, Fatigue, Fever, Weight gain, Weight loss, Chills, Dizziness, Change in appetite, Night Sweats Endocrine: DENIES: Abnorml menstrual pattern, Heat/cold intolerance, Polydipsia , Polyuria, Polyphagia Eyes: DENIES: Blurred vision, Diplopia, Eye inflammation, Eye pain, Vision loss , Photosensitivity, Double Vision Ears, nose, mouth, throat: DENIES: Tinnitus, Hearing loss, Vertigo, Nasal discharge, Oral lesions, Throat pain, Hoarseness, Ear Pain, Running Nose, Epistaxis, Sinus Pain, Toothache, Odynophagia Respiratory: DENIES: Apneas, Cough, Snoring, Wheezing, Hemoptysis, Sputum production, Shortness of breath Cardiovascular: DENIES: Chest pain, Palpitations, Syncope, Dyspnea on Exertion , PND, Lower Extremity Edema, Orthopnea, Claudication Gastrointestinal: COMPLAINS OF: Abdominal pain, DENIES: Black stools, Bloody stools, Constipation, Diarrhea, Nausea, Vomiting, Difficulty Swallowing, Anorexia Genitourinary: DENIES: Abnormal vaginal bleeding, Dysmenorrhea, Dyspareunia, Sexual dysfunction, Urinary frequency, Urinary incontinence, Urgency, Hematuria , Dysuria, Nocturia, Vaginal discharge Musculoskeletal: DENIES: Joint pain, Muscle aches, Stiffness, Joint Swelling, Back pain, Neck pain Integumentary: DENIES: Abnormal pigmentation, Pruritus, Rash, Nail changes, Breast masses, Breast skin changes, Nipple discharge Hematologic/lymphatic: DENIES: Bruising, Lymphadenopathy Immunologic/allergic: DENIES: Eczema, Urticaria Neurologic: DENIES: Abnormal gait, Headache, Localized weakness, Paresthesias, Seizures, Speech Problems, Tremor, Poor Balance Psychiatric: DENIES: Anxiety, Confusion, Mood changes, Depression, Hallucinations, Agitation, Suicidal Ideation, Homicidal Ideation, Delusions Past Family Social History Past Medical History Alcoholic cirrhosis of the liver, ascites with regular paracentesis History of esophageal varices History of hospitalizations for hepatic encephalopathy Depression History of anorexia with bulimia Hypothyroidism Past Surgical History Hernia repair Cholecystectomy Reported Medications reviewed in EMR Allergies: Coded Allergies: codeine (Unverified Allergy, Severe, VOMITING, 02/23/17) MILD REACTION- VOMITING morphine (Unverified Allergy, Severe, PT DENIES, 02/23/17) MILD REACTION aspirin (Unverified Adverse Reaction, Severe, Bleeding, 02/23/17) STOMACH "BLEEDS" PER PT ; SEVERE REACTION nortriptyline (Unverified Adverse Reaction, Severe, Hallucinations, ) vomiting ; INTERMEDIATE REACTION Family History adopted Social History The patient denies current alcohol/tobacco use (quit 4 yrs ago). Denies illicit drug use. She is . Physical Exam Vital Signs Vital Signs Date Time Temp Pulse Resp B/P (MAP) Pulse Ox O2 Delivery O2 Flow Rate FiO2 02/24/17 08:10 63 16 88/47 (61) 98 02/24/17 08:00 97.0 61 16 83/50 (61) 96 02/24/17 07:27 16 02/24/17 07:05 98.2 62 16 89/43 (58) 100 Room Air 02/24/17 06:11 16 02/24/17 05:53 60 16 84/56 (65) 99 Room Air 02/24/17 05:33 60 16 87/46 (60) 100 Room Air 02/24/17 03:30 60 16 82/45 (57) 100 Room Air 02/24/17 01:24 61 18 84/42 (56) 100 Room Air 02/24/17 00:08 100 21 02/23/17 23:52 61 16 73/43 (53) 100 Room Air 02/23/17 23:49 61 16 81/47 (58) 100 Room Air 02/23/17 22:33 61 18 81/35 (50) 61 Room Air 02/23/17 21:50 64 18 90/45 (60) 100 Room Air 02/23/17 20:50 64 18 85/43 (57) 99 02/23/17 20:18 18 02/23/17 19:54 72 18 91/41 (58) 99 Room Air 02/23/17 19:00 18 02/23/17 19:00 72 18 98/44 (62) 100 Room Air 02/23/17 18:23 98.4 71 16 97/50 (66) 98 Physical Exam GENERAL: This is a well-nourished, well-developed patient, in no apparent distress. SKIN: No rashes, ecchymoses or lesions. Cool and dry. HEAD: Atraumatic. Normocephalic. No temporal or scalp tenderness. EYES: Pupils equal round and reactive. Extraocular motions intact. No scleral icterus. No injection or drainage. ENT: Nose without bleeding, purulent drainage or septal hematoma. Throat without erythema, tonsillar hypertrophy or exudate. Uvula midline. Airway patent. NECK: Trachea midline. No JVD or lymphadenopathy. Supple, nontender, no meningeal signs. CARDIOVASCULAR: Regular rate and rhythm without murmurs, gallops, or rubs. RESPIRATORY: Clear to auscultation. Breath sounds equal bilaterally. No wheezes , rales, or rhonchi. GASTROINTESTINAL: Abdomen soft, moderately tender, minimally distended. No hepato-splenomegaly, or palpable masses. No guarding. MUSCULOSKELETAL: Extremities without clubbing, cyanosis, or edema. No joint tenderness, effusion, or edema noted. No calf tenderness. Negative Homans sign bilaterally. NEUROLOGICAL: Awake and alert. Cranial nerves II through XII intact. Motor and sensory grossly within normal limits. Five out of 5 muscle strength in all muscle groups. Normal speech. Laboratory Laboratory Tests Test 02/23/17 19:22 02/23/17 19:28 02/23/17 20:35 02/24/17 05:05 White Blood Count 5.9 4.4 Red Blood Count 3.21 3.14 Hemoglobin 10.2 9.6 Hematocrit 30.9 29.3 Mean Corpuscular Volume 96.1 93.3 Mean Corpuscular Hemoglobin 31.7 30.6 Mean Corpuscular Hemoglobin Concent 33.0 32.7 Red Cell Distribution Width 15.1 14.6 Platelet Count 129 122 Mean Platelet Volume 7.2 6.9 Neutrophils (%) (Auto) 59.3 47.7 Lymphocytes (%) (Auto) 16.9 24.1 Monocytes (%) (Auto) 17.9 17.7 Eosinophils (%) (Auto) 5.4 8.7 Basophils (%) (Auto) 0.5 1.8 Neutrophils # (Auto) 3.5 2.0 Lymphocytes # (Auto) 1.0 1.1 Monocytes # (Auto) 1.0 0.8 Eosinophils # (Auto) 0.3 0.4 Basophils # (Auto) 0.0 0.1 CBC Comment DIFF FINAL DIFF FINAL Differential Comment Prothrombin Time 18.7 Prothromb Time International Ratio 1.7 Activated Partial Thromboplast Time 37.3 Blood Urea Nitrogen 14 14 Creatinine 2.00 1.70 Random Glucose 172 86 Total Protein 6.4 5.8 Albumin 1.6 Calcium Level 7.9 7.3 Magnesium Level 1.8 Alkaline Phosphatase 135 Aspartate Amino Transf (AST/SGOT) 43 Alanine Aminotransferase (ALT/SGPT) 28 Total Bilirubin 2.2 Sodium Level 127 130 Potassium Level 4.3 4.1 Chloride Level 96 100 Carbon Dioxide Level 20.6 23.4 Anion Gap 10 7 Estimat Glomerular Filtration Rate 26 32 Ammonia 22 Lipase 130 Lactic Acid Level 3.3 Urine Color BROWN Urine Turbidity SLIGHT Urine pH 5.0 Urine Specific [place] 1.016 Urine Protein TRACE Urine Glucose (UA) NEG Urine Ketones TRACE Urine Occult Blood NEG Urine Nitrite NEG Urine Bilirubin NEG Urine Leukocyte Esterase TRACE Urine RBC 0-3 Urine WBC 0-2 Urine Squamous Epithelial Cells 6-8 Urine Hyaline Casts 20-24 Microscopic Urinalysis Comment CULT NOT INDICATED Protein Corrected Calcium 8.0 Date/Time Source Procedure Growth Status 02/23/17 19:28 Blood Peripheral Aerobic Blood Culture - Preliminary NO GROWTH IN 1 DAY Resulted 02/23/17 19:28 Blood Peripheral Anaerobic Blood Culture - Preliminary NO GROWTH IN 1 DAY Resulted Result Diagram: 02/24/17 0505 02/24/17 0505 Imaging Last Impressions Chest X-Ray 02/23/17 1915 Signed Impressions: Service Date/Time: Thursday, February 23, 2017 19:54 - CONCLUSION: No acute disease. David Fernandez MD Abdomen/Pelvis CT 02/23/17 0000 Signed Impressions: Service Date/Time: Thursday, February 23, 2017 21:14 - CONCLUSION: 1. Cirrhotic liver with a moderate to large amount of ascites. 2. 2 cm mass in the left lobe of the liver representing a cyst. This has gotten smaller over time. It was shown to represent a cyst on a prior MRI examination. 3. Splenomegaly. This is likely secondary to the hepatic abnormality and portal hypertension. MD Margareth No VTE Risk Assessment Margareth VTE Risk Assessment: Mod/High Risk (score >= 2) VTE Pharm Contraindication: End Stage Liver Disease Caprini Risk Assessment Model Point Value = 1 Point Value = 2 Point Value = 3 Point Value = 5 Age 41-60 Minor surgery BMI > 25 kg/m2 Swollen legs Varicose veins or History of unexplained or recurrent spontaneous Oral contraceptives or hormone replacement Sepsis (< 1 month) Serious lung disease, including pneumonia (< 1 month) Abnormal pulmonary function Acute myocardial infarction Congestive heart failure (< 1 month) History of inflammatory bowel disease Medical patient at bed rest Age 61-74 Arthroscopic surgery Major open surgery (> 45 min) Laparoscopic surgery (> 45 min) Malignancy Confined to bed (> 72 hours) Immobilizing plaster cast Central venous access Age >= 75 History of VTE Family history of VTE Factor V Leiden Prothrombin [id number] Lupus anticoagulant Anticardiolipin antibodies Elevated serum homocysteine Heparin-induced thrombocytopenia Other congenital or acquired thrombophilia Stroke (< 1 month) Elective arthroplasty Hip, pelvis, or leg fracture Acute spinal cord injury (< 1 month) Prophylaxis Regimen Total Risk Factor Score Risk Level Prophylaxis Regimen 0-1 Low Early ambulation 2 Moderate Order ONE of the following: *Sequential Compression Device (SCD) *Heparin 5000 units SQ BID 3-4 Higher Order ONE of the following medications: *Heparin 5000 units SQ TID *Enoxaparin/Lovenox 40 mg SQ daily (WT < 150 kg, CrCl > 30 mL/min) *Enoxaparin/Lovenox 30 mg SQ daily (WT < 150 kg, CrCl > 10-29 mL/min) *Enoxaparin/Lovenox 30 mg SQ BID (WT < 150 kg, CrCl > 30 mL/min) AND/OR *Sequential Compression Device (SCD) 5 or more Highest Order ONE of the following medications: *Heparin 5000 units SQ TID (Preferred with Epidurals) *Enoxaparin/Lovenox 40 mg SQ daily (WT < 150 kg, CrCl > 30 mL/min) *Enoxaparin/Lovenox 30 mg SQ daily (WT < 150 kg, CrCl > 10-29 mL/min) *Enoxaparin/Lovenox 30 mg SQ BID (WT < 150 kg, CrCl > 30 mL/min) AND *Sequential Compression Device (SCD) Assessment and Plan Problem List: (1) Cirrhosis of liver Status: Chronic Plan: ETOH Related, chronic with new pain Stable with minimal ascites Will try diagnosis paracentesis r/o SBP empiric Flagyl/cipro Resume home oral pain medicine Follow overnight if cultures negative likely discharge home Code Status Full code Discussed Condition With Patient, spouse, MedSurg RN Physician Certification 2 Midnight Certification Type: Admission for Inpatient Services Order for Inpatient Services The services are ordered in accordance with Medicare regulations or non- Medicare payer requirements, as applicable. In the case of services not specified as inpatient-only, they are appropriately provided as inpatient services in accordance with the 2-midnight benchmark. Estimated LOS (days): 2 2 days is the estimated time the patient will need to remain in the hospital, assuming treatment plan goals are met and no additional complications. Post-Hospital Plan: Caryn Bunch MD Feb 24, 2017 11:43
[2017-02-24] MEDS: CIPROFLOXACIN 400 MG PREMIX 200 ML IV SCH ×2 (13:48→23:52)
[2017-02-24 14:39] LABS: PERITONEAL LYMPHS 12 %; PERITONEAL MONOS 38 %; PERITONEAL POLYS(SEGS) 3 %; PERITONEAL WBC 117 /MM3 (0-10)
[2017-02-24 14:41] LABS: PERITONEAL HISTIOCYTES 41 %; PERITONEAL MESOTHELIAL 6 %
[2017-02-25] VITALS: BP 84/53; PULSE 70; RESP 16; TEMP 98.3; O2SAT 98
[2017-02-25] MEDS: metroNIDAZOLE 500 MG INJ 100 ML IV SCH ×2 (01:09→05:53)
[2017-02-25 08:00] VITALS: BP 107/57; PULSE 66; RESP 17; TEMP 96.1; O2SAT 99
[2017-02-25] MEDS: SODIUM CHLORIDE 0.9% FLUSH 10 ML FLUSH IV FLUSH SCH (08:00)
[2017-02-25] MEDS ORDERED: ONDANSETRON HCL 4 MG/2 ML VIAL IV PUSH PRN (09:15)
[2017-02-25] MEDS ORDERED: OXYC1TAB13 PO (10:47)
[2017-02-25] MEDS ORDERED: ONDA4TAB7 SL (10:47)
--- NOTE | 2017-02-25 10:47 | HHI.DCPOC ---
Discharge Care Plan Diagnosis: (1) Abdominal pain Goals to Promote Your Health * To prevent worsening of your condition and complications * To maintain your health at the optimal level Directions to Meet Your Goals Take your medications as prescribed Follow your dietary instruction Follow activity as directed Keep your appointments as scheduled Take your immunizations and boosters as scheduled If your symptoms worsen call your PCP, if no PCP go to Urgent Care Center or Emergency Room Smoking is Dangerous to Your Health. Avoid second hand smoke Call the 24-hour hour crisis hotline for domestic abuse at Caryn Christie MD Feb 25, 2017 10:47
--- NOTE | 2017-02-25 10:58 | HHI.DS ---
Discharge Summary Admission Date Feb 23, 2017 at 22:39 Discharge Date: Feb 25, 2017 Admitting Diagnosis Abdominal pain w/cirrhotic ascites; ARF;elevated lactic ac (1) Cirrhosis of liver Status: Chronic Procedures Paracentesis 3.6 L Brief History - From Admission Patient seen in ER after complaining of new right sided abdominal pain after recently being discharged to the hospital 02/21 after supportive and conservative treatment of ileus. The bedtime patient had left-sided sided abdominal pain. Tonight the pain is 7 out of 10 localized under the liver border. She had run out of her oxycodone. She denies constipation and has been having appropriate bowel movements per her report. 2 weeks ago she had a paracentesis. She denies fever or chills but notes that her abdomen is more distended and feels as if she has more fluid in the abdomen. She has had decreased appetite but no hematemesis or emesis. There is no melena. She does follow-up with advanced gastroenterology. CBC/BMP: 02/24/17 0505 02/24/17 0505 Significant Findings Laboratory Tests Test 02/23/17 19:22 02/23/17 19:28 02/23/17 20:35 02/24/17 05:05 Red Blood Count 3.21 MIL/MM3 (4.00-5.30) 3.14 MIL/MM3 (4.00-5.30) Hemoglobin 10.2 GM/DL (11.6-15.3) 9.6 GM/DL (11.6-15.3) Hematocrit 30.9 % (35.0-46.0) 29.3 % (35.0-46.0) Platelet Count 129 TH/MM3 (150-450) 122 TH/MM3 (150-450) Monocytes (%) (Auto) 17.9 % (0.0-8.0) 17.7 % (0.0-8.0) Eosinophils (%) (Auto) 5.4 % (0.0-4.0) 8.7 % (0.0-4.0) Monocytes # (Auto) 1.0 TH/MM3 (0-0.9) Prothrombin Time 18.7 SEC (9.8-11.6) Activated Partial Thromboplast Time 37.3 SEC (24.3-30.1) Creatinine 2.00 MG/DL (0.50-1.00) 1.70 MG/DL (0.50-1.00) Random Glucose 172 MG/DL (74-106) Albumin 1.6 GM/DL (3.4-5.0) Calcium Level 7.9 MG/DL (8.5-10.1) 7.3 MG/DL (8.5-10.1) Alkaline Phosphatase 135 U/L (45-117) Aspartate Amino Transf (AST/SGOT) 43 U/L (15-37) Total Bilirubin 2.2 MG/DL (0.2-1.0) Sodium Level 127 MEQ/L (136-145) 130 MEQ/L (136-145) Chloride Level 96 MEQ/L (98-107) Carbon Dioxide Level 20.6 MEQ/L (21.0-32.0) Estimat Glomerular Filtration Rate 26 ML/MIN (>89) 32 ML/MIN (>89) Lactic Acid Level 3.3 mmol/L (0.4-2.0) Urine Color BROWN (YELLW/STRAW) Urine Ketones TRACE mg/dL (NEG) Urine Leukocyte Esterase TRACE (NEG) Urine Squamous Epithelial Cells 6-8 /hpf (0-5) Urine Hyaline Casts 20-24 /lpf (RARE) Mean Platelet Volume 6.9 FL (7.0-11.0) Total Protein 5.8 GM/DL (6.4-8.2) Protein Corrected Calcium 8.0 MG/DL (8.5-10.1) Test 02/24/17 11:30 Peritoneal Fluid WBC 117 /MM3 (0-10) Peritoneal Fluid RBC 152 /MM3 (0-0) Imaging Last Impressions Chest X-Ray 02/23/17 1915 Signed Impressions: Service Date/Time: Thursday, February 23, 2017 19:54 - CONCLUSION: No acute disease. David Fernandez MD Abdomen/Pelvis CT 02/23/17 0000 Signed Impressions: Service Date/Time: Thursday, February 23, 2017 21:14 - CONCLUSION: 1. Cirrhotic liver with a moderate to large amount of ascites. 2. 2 cm mass in the left lobe of the liver representing a cyst. This has gotten smaller over time. It was shown to represent a cyst on a prior MRI examination. 3. Splenomegaly. This is likely secondary to the hepatic abnormality and portal hypertension. David Fernandez MD PE at Discharge GENERAL: This is a well-nourished, well-developed patient, in no apparent distress. CARDIOVASCULAR: Regular rate and rhythm without murmurs, gallops, or rubs. RESPIRATORY: Clear to auscultation. Breath sounds equal bilaterally. No wheezes , rales, or rhonchi. GASTROINTESTINAL: Abdomen soft, non-tender, nondistended. Normal active bowel sounds MUSCULOSKELETAL: Extremities without clubbing, cyanosis, or edema. NEURO: Alert & Oriented x4 to person, place, time, situation. Moves all ext x4 Pt update on day of discharge Doing better. Abdominal pain resolved. Fluids does not look infected on preliminary studies, cultures pending Hospital Course Patient seen and evaluated for abdominal pain. She did require a paracentesis and this appeared to improve her abdominal discomfort. 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 Pt Condition on Discharge: Good Discharge Disposition: Discharge Home Discharge Time: <= 30 minutes Discharge Instructions DIET: Follow Instructions for: Heart Healthy Diet Activities you can perform: Regular-No Restrictions Follow up Referrals: Gastroenterology - 03/02/17 Continued Medications: Ciprofloxacin (Cipro) 500 Mg Tab 500 MG PO Q12HR for colitis for 10 Days, TAB Furosemide (Furosemide) 40 Mg Tab 40 MG PO DAILY, #30 TAB 0 Refills Lactulose Liq (Lactulose Liq) 10 Gm/15 Ml Soln 30 ML PO BID PRN for titrate to 3-4 bm, ML 0 Refills Levothyroxine (Levothyroxine) 50 Mcg Tab 50 MCG PO DAILY for Thyroid, #30 TAB 0 Refills Magnesium Oxide (Magnesium Oxide) 400 Mg Tab 400 MG PO DAILY for Nutritional Supplement for 30 Days, TAB 0 Refills Metronidazole (Flagyl) 500 Mg Tab 500 MG PO Q8HR for colitis for 10 Days, TAB Ondansetron Odt (Ondansetron Odt) 4 Mg Tab 4 MG SL Q6HR PRN for Nausea/Vomiting, #28 TAB 0 Refills (This prescription has been renewed) Oxycodone (Roxicodone) 5 Mg Tab 5 MG PO Q8HR for Pain Management, #20 TAB 0 Refills (This prescription has been renewed) USE SPARRINGLY POSSIBLE Pantoprazole (Pantoprazole) 40 Mg Tab 40 MG PO DAILY for Reflux, #30 TAB 0 Refills Potassium Chloride ER (Potassium Chloride ER) 10 Meq Tab 10 MEQ PO DAILY for Electrolyte Replacement, #30 TAB 0 Refills Rifaximin (Xifaxan) 550 Mg Tab 550 MG PO BID for Liver, #60 TAB Spironolactone (Aldactone) 50 Mg Tab 50 MG PO BID@18 for Liver, #60 TAB Caryn Christie MD Feb 25, 2017 10:58
[2017-02-25] MEDS: CIPROFLOXACIN 400 MG PREMIX 200 ML IV SCH (11:00)
--- NOTE | 2017-03-03 12:28 | RADRPT ---
EXAM DATE/TIME: 02/24/2017 10:57 [facility] COMPARISON: No previous studies available for comparison. INDICATIONS : Ascites. MEDICAL HISTORY : Hypothyroidism. Hernia, hiatal. Arthritis. Asthma. Upper GI bleed. Bleeding SURGICAL HISTORY : Cholecystectomy EGD banding. Hernia repair. Left hip replacement. Blood ENCOUNTER: Subsequent ACUITY: 2 weeks PAIN SCORE: 4/10 LOCATION: Right lower quadrant FLUID: Total volume of 3600 cc of clear, yellow fluid was removed. Fluid was sent to lab for ordered studies. Post procedure scanning reveals no hematoma or other complication. TECHNIQUE: 1. Ultrasound guidance for abdominal paracentesis. 2. Paracentesis. The risks, benefits, and alternatives to ultrasound guided paracentesis were explained to the patient in detail including the risk of bleeding and infection. Written and verbal informed consent was obt ained. With the patient on the ultrasound table, ultrasound imaging was used to select the most appropriate approach for paracentesis. Overlying skin was prepped and draped in the usual sterile fashion and wi th a local anesthetic, a dermatotomy was made with an 11 blade scalpel. A 6 [place] Tly-L-pevivelb ca theter was introduced into the peritoneal cavity and fluid was collected. The patient tolerated the procedure well and left the ultrasound suite in stable condition. CONCLUSION: Uncomplicated ultrasound guided paracentesis. Chandrakant Srinivasan MD on March 03, 2017 at 12:27 Board Certified Radiologist. This report was verified electronically.
== END 2017-02-25 11:33 | disposition home or self-care (01) | DRG 433 ==
LOC: PHED 17:53 → OBSVTOIN 22:39 → PHEDA 22:39 → PHEDH 02-24 02:39 → PH3A 02-24 08:15
PROVIDERS: ADMIT Hospitalist; ATTEND Hospitalist
PROC: 0W9G3ZX Drainage of Peritoneal Cavity, Percutaneous Approach, Diagnostic (ICD-10-PCS; principal; 2017-02-24)
DX: K70.31 Alcoholic cirrhosis of liver with ascites (principal); N17.9 Acute kidney failure, unspecified; K76.6 Portal hypertension; D69.6 Thrombocytopenia, unspecified; Z96.642 Presence of left artificial hip joint; E03.9 Hypothyroidism, unspecified; J45.909 Unspecified asthma, uncomplicated; M19.90 Unspecified osteoarthritis, unspecified site; F41.9 Anxiety disorder, unspecified; F32.9 Major depressive disorder, single episode, unspecified; F10.21 Alcohol dependence, in remission
CPT/HCPCS: 49083; 71010; 74176; 80048; 80053; 81001; 82140; 82150; 83605; 83690; 83735; 84155; 85025; 85610; 85730; 87040; 87070; 87205; 89051; 96361; 96365; 96375; C1729; J0744; J1170; J2405; J2543; J7030; J7040

== ENCOUNTER → 2017-03-02 | Day surgery (SDC) | payer MEDICAID ==
[~2017-03-02] MED LIST changes: +COMMODE BEDSIDE1 MI1; +LACTATED RINGER'S 1000 ML INJ 1,000 ML ONE; +PROM25TA10 PO; +PROP10TA6 PO; +PROPOFOL 500 MG/50 ML BTL IV ONE; +SPIR100T PO; +SPIR50TA PO; +ZOFR4TAB3 SL
--- NOTE | 2017-03-02 15:51 | GIPROC ---
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 TOPICAL ANESTHETIC: CONSENT: The patient understands the risks and benefits of the procedure and understands that these risks include, but are not limited to: sedation, allergic reaction, infection, perforation and/or bleeding. Alternative means of evaluation and treatment include, among others: physical exam, x-rays, and/or surgical intervention. The patient elects to proceed with this endoscopic procedure. medical equipment was checked for proper function. Hand hygiene and appropriate measures for infection prevention was taken. After the risks, benefits and alternatives of the procedure were thoroughly explained, Informed consent was verified, confirmed and timeout was successfully executed by the treatment team. The patient was anesthetized with topical anesthesia and the EC-[id number] ([id number]) endoscope was introduced through the mouth and advanced to the second portion of the duodenum. Retroflexed views revealed no abnormalities The gastroscope was then slowly withdrawn and removed. ESOPHAGUS: There was a single small varix. The varices were not bleeding. There was evidence of prior scarring. STOMACH: There was severe gastritis in the gastric antrum. A biopsy was performed using cold forceps. Sample sent for histology. DUODENUM: A medium sized angiodysplastic lesion with no bleeding found in the 1st part of the duodenum. Bipolar (BICAP) cautery with a 10Fr probe was applied to the site(s) for 5 secs using 20 valdez power. Moderate pressure was applied to the cautery site with complete hemostasis achieved. ADVERSE EVENTS: There were no complications. IMPRESSIONS: 1. There was gastritis in the gastric antrum; biopsy was performed 2. Medium sized angiodysplastic lesion with no bleeding found in the 1st part of the duodenum; Bipolar (BICAP) cautery with a 10Fr probe was applied to the site(s) for 5 secs; with complete hemostasis achieved 3. Retroflexed views revealed no abnormalities RECOMMENDATIONS: 1. Await biopsy results. Biopsy results will not be ready for 7-10 days. If you don't hear from us in two weeks, call our office for biopsy results. 2. Anti-reflux regimen 3. Continue PPI 4. Avoid NSAIDS PATIENT CONDITION: stable DISPOSITION: Home REPEAT EXAM: Return 1 year EGD Amy Reed MD eSigned: Amy Reed MD 03/02/2017 3:51 PM cc: Bobby Morales [facility] Penelope Vo M.D. PATIENT NAME: Michelle Santamaria MR#: [id number]
== END | disposition home or self-care (01) ==
LOC: ESDC 13:10
PROVIDERS: ATTEND Internal Medicine Gastroenterology
DX: K74.60 Unspecified cirrhosis of liver (principal); I85.00 Esophageal varices without bleeding; K29.70 Gastritis, unspecified, without bleeding; K31.89 Other diseases of stomach and duodenum
CPT/HCPCS: 00740; 43239; 43270; 88305; J7120

== ENCOUNTER 2017-03-08 21:19 | Inpatient (IN) | payer MEDICAID ==
[~2017-03-08] VITALS: Ht 170.2 cm; Wt 61.0 kg
[~2017-03-08 21:19] MED LIST changes: -COMMODE BEDSIDE1 MI1; -LACTATED RINGER'S 1000 ML INJ 1,000 ML ONE; -PROM25TA10 PO; -PROP10TA6 PO; -PROPOFOL 500 MG/50 ML BTL IV ONE; -SPIR100T PO; -SPIR50TA PO; -ZOFR4TAB3 SL
[2017-03-08 21:22] VITALS: BP 89/53; PULSE 86; RESP 16; TEMP 99.2; O2SAT 96
[2017-03-08] MEDS ORDERED: SPIR100T PO (21:39)
[2017-03-08] MEDS ORDERED: PROP10TA6 PO (21:39)
[2017-03-08 22:00] VITALS: BP 84/50; PULSE 76; RESP 16; O2SAT 100
[2017-03-08] MEDS ORDERED: SODIUM CHLORID 0.9% 500 ML INJ 500 ML IV ONE (22:00)
[2017-03-08] MEDS ORDERED: ONDANSETRON HCL 4 MG/2 ML VIAL IVP ONE (22:00)
[2017-03-08] MEDS ORDERED: SODIUM CHLORIDE 0.9% FLUSH 10 ML FLUSH IV FLUSH PRN (22:00)
[2017-03-08 22:30] VITALS: BP 78/47; PULSE 74; RESP 16; O2SAT 99
[2017-03-08 22:38] LABS: HEMATOCRIT 30.1 % (35.0-46.0); HEMO FLAGS DIFF FINAL; LYMPH % 16.1 % (9.0-44.0); MEAN CELL VOLUME 95.4 FL (80.0-100.0); MEAN CORPUSCULAR HEMOGLOBIN 32.7 PG (27.0-34.0); MEAN CORPUSCULAR HGB CONC 34.3 % (32.0-36.0); MONO % 14.9 % (0.0-8.0); NEUT % 60.9 % (16.0-70.0); PLATELET COUNT 158 TH/MM3 (150-450); RED BLOOD COUNT 3.16 MIL/MM3 (4.00-5.30); RED CELL DISTRIBUTION WIDTH 16.7 % (11.6-17.2); WHITE BLOOD COUNT 6.8 TH/MM3 (4.0-11.0)
[2017-03-08 22:39] LABS: AUTOMATED NEUTROPHIL # 4.1 TH/MM3 (1.8-7.7); BASOPHIL % 0.5 % (0.0-2.0); EOSINOPHIL # 0.5 TH/MM3 (0-0.4); EOSINOPHIL % 7.6 % (0.0-4.0); LYMPHOCYTE # 1.1 TH/MM3 (1.0-4.8)
--- NOTE | 2017-03-08 22:41 | RADRPT ---
EXAM DATE/TIME: 03/08/2017 22:12 [facility] COMPARISON: CHEST SINGLE AP, February 23, 2017, 19:54. INDICATIONS : Short of breath. MEDICAL HISTORY : Hypothyroidism. Hernia, hiatal. Arthritis. Asthma. Upper GI bleed. SURGICAL HISTORY : Cholecystectomy EGD banding. Hernia repair. Left hip replacement. ENCOUNTER: Subsequent ACUITY: 1 day PAIN SCORE: 0/10 LOCATION: Bilateral chest FINDINGS: A single view of the chest demonstrates the lungs to be symmetrically aerated without evidence of mas s, infiltrate or effusion. The cardiomediastinal contours are unremarkable. Osseous structures are intact. CONCLUSION: No evidence of acute cardiopulmonary disease. David Moreno MD on March 08, 2017 at 22:39 Board Certified Radiologist. This report was verified electronically.
[2017-03-08 22:42] LABS: INTERNATIONAL NORMALIZED RATIO 1.5 RATIO; PROTHROMBIN TIME - PATIENT 17.4 SEC (9.8-11.6)
[2017-03-08 22:51] LABS: INDIRECT BILIRUBIN 1.2 MG/DL (0.0-0.8); TOTAL BILIRUBIN ADULT 2.8 MG/DL (0.2-1.0)
[2017-03-08 22:53] LABS: BICARBONATE 20.6 MEQ/L (21.0-32.0); POTASSIUM 3.9 MEQ/L (3.5-5.1)
[2017-03-08 23:12] VITALS: BP 80/44; PULSE 75; RESP 16; O2SAT 100
[2017-03-08 23:20] VITALS: BP 80/44; PULSE 78; RESP 18; O2SAT 99
[2017-03-08] MEDS ORDERED: SODIUM CHLOR 0.9% 250 ML INJ 250 ML IV ONE (23:30)
[2017-03-09] VITALS (14 sets, daily range): BP systolic 78–89; BP diastolic 43–57; PULSE 67–87; RESP 14–18; TEMP 97.3–98.4; O2SAT 97–100
--- NOTE | 2017-03-09 00:12 | RADRPT ---
EXAM DATE/TIME: 03/08/2017 23:45 [place] COMPARISON: No previous studies available for comparison. INDICATIONS : Diffuse abdominal pain. ORAL CONTRAST: No oral contrast ingested. RADIATION DOSE: 6.63 CTDIvol (mGy) MEDICAL HISTORY : Cirrhosis. Ascites. GI bleed. Ulcers. Hiatal hernia. Hep C. SURGICAL HISTORY : Cholecystectomy. Umbilical hernia repair.Left hip replacement. Paracentesis. ENCOUNTER: Initial ACUITY: 2 days PAIN SCALE: 8/10 LOCATION: All quadrants. TECHNIQUE: Volumetric scanning of the abdomen and pelvis was performed. Using automated exposure control and ad justment of the mA and/or kV according to patient size, radiation dose was kept as low as reasonably achievable to obtain optimal diagnostic quality images. DICOM format image data is available electro nically for review and comparison. FINDINGS: Trace pleural fluid and dependent atelectasis in the lungs. The severe liver cirrhosis with stable 1.9 cm cyst in the left lobe. Mild splenomegaly to 13.4 cm. Moderate to severe ascites present. No free air. No bowel obstruction. Appendix normal. No acute bony abnormalities. Previous left hip replacement. CONCLUSION: 1. Liver cirrhosis with moderate to severe ascites. No bowel obstruction. No free air. No significant change from February 23. Rogelio Lynch MD on March 09, 2017 at 0:05 Board Certified Radiologist. This report was verified electronically.
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
[2017-03-09] MEDS ORDERED: SODIUM CHLORIDE 0.9% FLUSH 10 ML FLUSH IV FLUSH PRN (01:15)
[2017-03-09] MEDS ORDERED: NALOXONE HCL 0.4 MG/ML AMP IV PRN (01:15)
[2017-03-09] MEDS: SODIUM CHLORIDE 0.9% FLUSH 10 ML FLUSH IV FLUSH SCH ×2 (08:20→21:01)
[2017-03-09] MEDS: LEVOTHYROXINE SODIUM 50 MCG TAB PO SCH (08:29)
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
[2017-03-09] MEDS ORDERED: ALBUMIN HUMAN 25% 25 GM/100 ML BAGP IV ONE ×2 (10:30)
--- NOTE | 2017-03-09 10:42 | RADRPT ---
EXAM DATE/TIME: 03/09/2017 10:18 [facility] COMPARISON: US GUIDED ABD PARACENTESIS, February 24, 2017, 10:57. INDICATIONS : Abnormal labs. MEDICAL HISTORY : Hypothyroidism. Hernia, hiatal. Arthritis. Asthma. Upper GI bleed. SURGICAL HISTORY : Cholecystectomy EGD banding. Hernia repair. Left hip replacement. ENCOUNTER: Initial ACUITY: 1 day PAIN SCORE: 1/10 LOCATION: Bilateral flank MEASUREMENTS: RIGHT KIDNEY: 10.6 x 5.0 x 5.3 cm LEFT KIDNEY: 11.2 x 4.4 x 5.2 cm FINDINGS: RIGHT KIDNEY: Renal cortex is normal in thickness and echotexture. No hydronephrosis, stone, or mass. LEFT KIDNEY: Renal cortex is normal in thickness and echotexture. No hydronephrosis, stone, or mass. BLADDER: Within normal limits given the degree of distension. Note is made of diffuse abdominal ascites. CONCLUSION: 1. Diffuse abdominal ascites. 2. The kidneys are normal in appearance bilaterally without evidence of hydronephrosis. 3. The small portion of liver visualized appears quite cirrhotic. Hussain Anderson MD on March 09, 2017 at 10:39 Board Certified Radiologist. This report was verified electronically.
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
--- NOTE | 2017-03-09 11:32 | RADRPT ---
EXAM DATE/TIME: 03/09/2017 09:18 [facility] COMPARISON: US GUIDED ABD PARACENTESIS, February 24, 2017, 10:57. INDICATIONS : Ascites. MEDICAL HISTORY : Hypothyroidism. Hernia, hiatal. Arthritis. Asthma. Upper GI bleed. SURGICAL HISTORY : Paracentesis. Cholecystectomy. EGD banding. Hernia repair. Left hip replacement. ENCOUNTER: Subsequent ACUITY: 2 weeks PAIN SCORE: 1/10 LOCATION: Right lower quadrant FLUID: Total volume of 5000 cc of clear, yellow fluid was removed. Fluid was sent to lab for ordered studies. Post procedure scanning reveals no hematoma or other complication. TECHNIQUE: 1. Ultrasound guidance for abdominal paracentesis. 2. Paracentesis. The risks, benefits, and alternatives to ultrasound guided paracentesis were explained to the patient in detail including the risk of bleeding and infection. Written and verbal informed consent was obt ained. With the patient on the ultrasound table, ultrasound imaging was used to select the most appropriate approach for paracentesis. Overlying skin was prepped and draped in the usual sterile fashion and wi th a local anesthetic, a dermatotomy was made with an 11 blade scalpel. A 6 [id number] ca theter was introduced into the peritoneal cavity and fluid was collected. The patient tolerated the procedure well and left the ultrasound suite in stable condition. CONCLUSION: Uncomplicated ultrasound guided paracentesis. Ravi Russo MD on March 09, 2017 at 11:30 Board Certified Radiologist. This report was verified electronically.
[2017-03-09 11:42] LABS: PERITONEAL BASO 1 %; PERITONEAL HISTIOCYTES 55 %; PERITONEAL LYMPHS 14 %; PERITONEAL MESOTHELIAL 12 %; PERITONEAL MONOS 13 %; PERITONEAL POLYS(SEGS) 5 %
[2017-03-09 11:43] LABS: PERITONEAL WBC 60 /MM3 (0-10)
[2017-03-09] MEDS ORDERED: ALBUMIN HUMAN 25% 25GM-W/12.5GM FOR 37.5GM IV ONE (11:45)
[2017-03-09] MEDS ORDERED: ALBUMIN HUMAN 25% 12.5GM-W/25GM FOR 37.5GM IV ONE (11:45)
[2017-03-09] MEDS: RIFAXIMIN 550 MG TAB PO SCH ×2 (12:32→21:01)
[2017-03-09] MEDS: PANTOPRAZOLE SOD 40 MG DELAYED RELEASE TAB PO SCH (12:32)
[2017-03-09] MEDS: LACTULOSE SYRUP 20 GM/30 ML CUP PO SCH ×4 (12:32→21:01)
--- NOTE | 2017-03-09 14:10 | RADRPT ---
EXAM DATE/TIME: 03/09/2017 13:29 [facility] COMPARISON: US KIDNEY/RENAL/BLADDER, March 09, 2017, 10:18. INDICATIONS : Evaluate for portal vein thrombosis. MEDICAL HISTORY : Hypothyroidism. Arthritis. Cirrhosis. Confusion. Asthma. Anorexi. Bulimia. Hiatal hernia. Upper GI Bl eed. Esophageal varices. Alcoholic hepatitis. Thrombocytopenia. Ascites. Depression. Anxiety. SURGICAL HISTORY : Cholecystectomy. Umbilical hernia repair. Esophageal banding. Left hip replacement. Blood transfusi ons. Paracentesis. ENCOUNTER: Initial ACUITY: 1 day PAIN SCORE: 8/10 LOCATION: Bilateral upper quadrant MEASUREMENTS: LIVER: 12.0 cm length COMMON DUCT: 5 mm RIGHT KIDNEY: 10.0 x 4.7 x 5.3 cm SPLEEN: 14.5 cm length FINDINGS: LIVER: There is heterogeneous, increased echotexture of the liver most consistent with advanced cirrhosis. T he liver is quite small in size. No definite solid mass is seen. The main portal vein is patent with biphasic flow. There is diffuse ascites within the upper abdomen. COMMON DUCT: No intraluminal mass or stone visualized. GALLBLADDER: Surgically absent. PANCREAS: The pancreas was not visualized due to overlying bowel gas. RIGHT KIDNEY: No hydronephrosis, stone or mass. SPLEEN: The spleen is enlarged measuring at least 14.5 cm in transverse dimension. CONCLUSION: 1. Cirrhotic appearing, small liver with splenomegaly and ascites consistent with cirrhosis and mary l hypertension. Hussain Anderson MD on March 09, 2017 at 14:06 Board Certified Radiologist. This report was verified electronically.
[2017-03-10] VITALS (8 sets, daily range): BP systolic 81–91; BP diastolic 47–57; PULSE 65–80; RESP 16–18; TEMP 97.5–98.6; O2SAT 96–100
[2017-03-10 06:10] LABS: AUTOMATED NEUTROPHIL # 1.7 TH/MM3 (1.8-7.7); BASOPHIL % 0.6 % (0.0-2.0); EOSINOPHIL # 0.4 TH/MM3 (0-0.4); EOSINOPHIL % 9.9 % (0.0-4.0); HEMATOCRIT 30.1 % (35.0-46.0); HEMO FLAGS DIFF FINAL; LYMPH % 27.1 % (9.0-44.0); MEAN CELL VOLUME 95.6 FL (80.0-100.0); MEAN CORPUSCULAR HEMOGLOBIN 32.1 PG (27.0-34.0); MEAN CORPUSCULAR HGB CONC 33.6 % (32.0-36.0); MONO % 15.5 % (0.0-8.0); NEUT % 46.9 % (16.0-70.0); PLATELET COUNT 100 TH/MM3 (150-450); RED BLOOD COUNT 3.15 MIL/MM3 (4.00-5.30); RED CELL DISTRIBUTION WIDTH 16.9 % (11.6-17.2); WHITE BLOOD COUNT 3.6 TH/MM3 (4.0-11.0)
[2017-03-10] MEDS: ONDANSETRON HCL 4 MG/2 ML VIAL IV PUSH PRN ×2 (06:10→20:37)
[2017-03-10] MEDS: LEVOTHYROXINE SODIUM 50 MCG TAB PO SCH (06:10)
[2017-03-10 06:22] LABS: INTERNATIONAL NORMALIZED RATIO 1.7 RATIO; PROTHROMBIN TIME - PATIENT 19.4 SEC (9.8-11.6)
[2017-03-10 06:56] LABS: INDIRECT BILIRUBIN 1.6 MG/DL (0.0-0.8); TOTAL BILIRUBIN ADULT 2.9 MG/DL (0.2-1.0)
[2017-03-10 08:02] LABS: BICARBONATE 20.7 MEQ/L (21.0-32.0); POTASSIUM 3.4 MEQ/L (3.5-5.1)
[2017-03-10] MEDS ORDERED: ALBUMIN HUMAN 25% 12.5 GM/50 ML BAGP IV SCH (08:15)
[2017-03-10] MEDS: LACTULOSE SYRUP 20 GM/30 ML CUP PO SCH ×4 (09:00→21:00)
[2017-03-10] MEDS ORDERED: POTASSIUM CHLORIDE 20 MEQ CONTROLLED RELEASE TAB PO ONE (09:00)
[2017-03-10] MEDS: PANTOPRAZOLE SOD 40 MG DELAYED RELEASE TAB PO SCH (09:11)
[2017-03-10] MEDS: RIFAXIMIN 550 MG TAB PO SCH ×2 (09:12→21:00)
[2017-03-10] MEDS: SODIUM CHLORIDE 0.9% FLUSH 10 ML FLUSH IV FLUSH SCH ×2 (09:12→20:37)
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
--- NOTE | 2017-03-10 10:10 | HHI.PR ---
Subjective Remarks Follow-up for cirrhosis. The patient complains of lightheadedness and dizziness. She states lightheadedness has been going on for the past 2 weeks, but feels worse today. She complains of nausea and, poor appetite, and dry heaving. She has tolerated a little food here. She denies any abdominal pain and her abdomen feels better after paracentesis yesterday. She denies any fevers or chills. Objective Vitals Vital Signs Date Time Temp Pulse Resp B/P (MAP) Pulse Ox O2 Delivery O2 Flow Rate FiO2 03/10/17 08:59 97.8 65 16 91/57 (68) 100 03/10/17 04:01 97.9 73 18 83/51 (62) 96 03/10/17 00:12 98.6 71 18 83/47 (59) 99 03/09/17 20:15 71 03/09/17 19:36 97.3 78 18 82/53 (63) 100 03/09/17 15:49 98.4 77 17 85/50 (62) 99 03/09/17 12:10 67 03/09/17 11:42 97.7 72 18 87/53 (64) 100 03/09/17 11:23 98.0 69 14 82/50 (61) 100 03/09/17 11:10 98.0 76 14 81/52 (62) 99 I/O 03/09/17 03/09/17 03/09/17 03/10/17 03/10/17 03/10/17 07:00 15:00 23:00 07:00 15:00 23:00 Intake Total 750 ml Balance 750 ml Intake IV Total 750 ml Result Diagram: 03/10/17 0457 03/10/17 0457 Imaging Last Impressions Renal Ultrasound 03/09/17 0000 Signed Impressions: Service Date/Time: Thursday, March 09, 2017 10:18 - CONCLUSION: 1. Diffuse abdominal ascites. 2. The kidneys are normal in appearance bilaterally without evidence of hydronephrosis. 3. The small portion of liver visualized appears quite cirrhotic. Hussain Anderson MD Liver Ultrasound 03/09/17 0000 Signed Impressions: Service Date/Time: Thursday, March 09, 2017 13:29 - CONCLUSION: 1. Cirrhotic appearing, small liver with splenomegaly and ascites consistent with cirrhosis and portal hypertension. Hussain Anderson MD Cyst Biopsy Asp-Paracentesis US 03/09/17 0000 Signed Impressions: Service Date/Time: Thursday, March 09, 2017 09:18 - CONCLUSION: Uncomplicated ultrasound guided paracentesis. Ravi Russo MD Chest X-Ray 03/08/172146 Signed Impressions: Service Date/Time: Wednesday, March 08, 2017 22:12 - CONCLUSION: No evidence of acute cardiopulmonary disease. David Moreno MD Abdomen/Pelvis CT 03/08/17 0000 Signed Impressions: Service Date/Time: Wednesday, March 08, 2017 23:45 - CONCLUSION: 1. Liver cirrhosis with moderate to severe ascites. No bowel obstruction. No free air. No significant change from February 23. Rogelio Lynch MD Objective Remarks GENERAL: Well-developed well-nourished. Chronically ill appearing. Appears uncomfortable, but in no acute distress. SKIN: Warm and dry. No lesions noted. HEENT: Normocephalic. Pupils equal and round. Mucous membranes pink and moist. CARDIOVASCULAR: Regular rate and rhythm. No murmur appreciated. RESPIRATORY: No accessory muscle use. Clear to auscultation. Breath sounds equal bilaterally. GASTROINTESTINAL: Abdomen soft, non-tender, nondistended. Bowel sounds x4. MUSCULOSKELETAL: No obvious deformities. No clubbing or cyanosis. No edema. NEUROLOGICAL: Awake and alert. No focal neurological deficits. Moves upper and lower extremities spontaneously. Normal speech. PSYCHIATRIC: Appropriate mood and affect; insight and judgment normal. A/P Assessment and Plan 51-year-old female with past medical history of alcohol-induced cirrhosis who presented to the hospital with increasing abdominal pain and distention Alcohol cirrhosis/ Ascites/ Abdominal pain/ Failure to thrive The patient has previously been on hospice. She was recently hospitalized and treated for SBP. She also recently had a paracentesis. Now with increasing abdominal pain and distention, along with lower extremity edema. She received IV albumin in the ED. CT abdomen without acute process. Symptoms somewhat improved after paracentesis 03/09. No signs of SBP. - continue lactulose and rifaximin. Mental status seems to be at baseline. - GI consulted. Symptoms likely secondary to worsening end-stage liver disease. - Palliative care consulted. - PPI. - Renal failure improving, resume diuretics as tolerated - Continue him oxycodone as needed for pain Acute renal failure Creatinine is elevated compared to baseline, although improving overnight with diuretics held. Possibly s/t hepatorenal syndrome or overdiuresis. Renal ultrasound with normal-appearing kidneys. - Resume Lasix and Aldactone at a decreased dose. - avoid nephrotoxic agents. - GI added IV albumin and recommended nephrology consult - Consult nephrology, appreciate assistance Hyponatremia S/t hypervolemia. - resume diuretics. Thrombocytopenia/ Anemia S/t liver disease and likely splenic sequestration. Hgb at baseline. - follow CBC. Hypotension Likely s/t liver disease. Stable at this time. - Resume diuretics cautiously Hypokalemia: Mild. -Potassium 3.4, replace potassium orally -Follow up BMP and magnesium PPx: SCDs D/W Dr. Hernandez Discharge Planning May need SNF or C, case management consulted. Benjamin Beverly Mar 10, 2017 10:10
[2017-03-10] MEDS: SPIRONOLACTONE 25 MG TAB PO SCH ×2 (12:05→18:10)
[2017-03-10] MEDS: FUROSEMIDE 40 MG TAB PO SCH (12:05)
--- NOTE | 2017-03-10 14:48 | HHI.HCSW ---
Information Systems Specialist Visit Cognitive Functioning Asleep. Easily awakens. . Significant Family/Friend No family/friends at bedside. . Advance Directive Provided health care surrogate and living will paperwork. Mrs. Santamaria did not wish to fill out during my visit. Requested papers be left for her review. . Follow Up Visit Palliative care SW will follow-up to obtain copies of living will and health care surrogate after completion. Will be available to assist with documents if needed. Jennifer Soriano, [employer]PER[employer] Mar 10, 2017 14:48
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
[2017-03-10] MEDS: ALBUMIN HUMAN 25% 12.5 GM/50 ML BAGP IV SCH ×2 (16:39→22:03)
[2017-03-11] VITALS (7 sets, daily range): BP systolic 89–106; BP diastolic 53–66; PULSE 78–90; RESP 16–18; TEMP 97.8–98.2; O2SAT 96–100
[2017-03-11] MEDS: LEVOTHYROXINE SODIUM 50 MCG TAB PO SCH (05:50)
[2017-03-11] MEDS: ONDANSETRON HCL 4 MG/2 ML VIAL IV PUSH PRN (05:51)
[2017-03-11] MEDS: ALBUMIN HUMAN 25% 12.5 GM/50 ML BAGP IV SCH ×3 (05:51→23:30)
--- NOTE | 2017-03-11 08:06 | HHI.PR ---
Subjective Remarks Follow-up for cirrhosis. Patient continues to complain of some dizziness especially with standing, unchanged. She states she hasn't really been able to stand her walker. Discussed rehabilitation placement after discharge. She states she's been tolerating water, but otherwise hasn't been tolerating oral intake due to nausea. She reports good urine output. Objective Vitals Vital Signs Date Time Temp Pulse Resp B/P (MAP) Pulse Ox O2 Delivery O2 Flow Rate FiO2 03/11/17 07:35 98.0 78 16 100/58 (72) 100 03/11/17 04:21 98.0 80 17 89/58 (68) 98 03/11/17 00:00 98.2 78 18 89/53 (65) 96 03/10/17 20:47 97.9 80 17 81/52 (62) 99 03/10/17 20:15 79 03/10/17 15:41 98.0 76 18 86/51 (63) 98 03/10/17 15:21 66 03/10/17 11:16 97.5 66 18 91/55 (67) 100 03/10/17 08:59 97.8 65 16 91/57 (68) 100 Result Diagram: 03/10/17 0457 03/10/17 0457 Imaging Last Impressions Renal Ultrasound 03/09/17 0000 Signed Impressions: Service Date/Time: Thursday, March 09, 2017 10:18 - CONCLUSION: 1. Diffuse abdominal ascites. 2. The kidneys are normal in appearance bilaterally without evidence of hydronephrosis. 3. The small portion of liver visualized appears quite cirrhotic. Hussain Anderson MD Liver Ultrasound 03/09/17 0000 Signed Impressions: Service Date/Time: Thursday, March 09, 2017 13:29 - CONCLUSION: 1. Cirrhotic appearing, small liver with splenomegaly and ascites consistent with cirrhosis and portal hypertension. Hussain Anderson MD Cyst Biopsy Asp-Paracentesis US 03/09/17 0000 Signed Impressions: Service Date/Time: Thursday, March 09, 2017 09:18 - CONCLUSION: Uncomplicated ultrasound guided paracentesis. Ravi Russo MD Chest X-Ray 03/08/172146 Signed Impressions: Service Date/Time: Wednesday, March 08, 2017 22:12 - CONCLUSION: No evidence of acute cardiopulmonary disease. David Moreno MD Abdomen/Pelvis CT 03/08/17 0000 Signed Impressions: Service Date/Time: Wednesday, March 08, 2017 23:45 - CONCLUSION: 1. Liver cirrhosis with moderate to severe ascites. No bowel obstruction. No free air. No significant change from February 23. Rogelio Lynch MD Objective Remarks GENERAL: Well-developed well-nourished. Chronically ill appearing. In no acute distress. SKIN: Warm and dry. No lesions noted. HEENT: Normocephalic. Pupils equal and round. Mucous membranes pink and moist. CARDIOVASCULAR: Regular rate and rhythm. No murmur appreciated. RESPIRATORY: No accessory muscle use. Clear to auscultation. Breath sounds equal bilaterally. GASTROINTESTINAL: Abdomen soft, non-tender, mild distention. Bowel sounds x4. MUSCULOSKELETAL: No obvious deformities. No clubbing or cyanosis. No edema. NEUROLOGICAL: Awake and alert. No focal neurological deficits. Moves upper and lower extremities spontaneously. Normal speech. PSYCHIATRIC: Appropriate mood and affect; insight and judgment normal. A/P Assessment and Plan 51-year-old female with past medical history of alcohol-induced cirrhosis who presented to the hospital with increasing abdominal pain and distention Alcohol cirrhosis/ Ascites/ Abdominal pain/ Failure to thrive The patient has previously been on hospice. She was recently hospitalized and treated for SBP. She also recently had a paracentesis. Now with increasing abdominal pain and distention, along with lower extremity edema. She received IV albumin in the ED. CT abdomen without acute process. Symptoms somewhat improved after paracentesis 03/09. No signs of SBP. - continue lactulose and rifaximin. Mental status seems to be at baseline. - GI consulted. Symptoms likely secondary to worsening end-stage liver disease. - Palliative care on board. - PPI. - Renal failure improving, resumed diuretics as tolerated with albumin - Continue him oxycodone as needed for pain Acute renal failure Creatinine is elevated compared to baseline, although improving overnight with diuretics held. Possibly s/t hepatorenal syndrome or overdiuresis. Renal ultrasound with normal-appearing kidneys. - Resumed Lasix and Aldactone at a decreased dose. - avoid nephrotoxic agents. - GI added IV albumin and recommended nephrology consult - Nephrology on board, appreciate assistance - Follow up BMP Hyponatremia S/t hypervolemia. - Continue diuretics. Thrombocytopenia/ Anemia S/t liver disease and likely splenic sequestration. Hgb at baseline. - follow CBC. Hypotension Likely s/t liver disease. Stable at this time. - Resume diuretics cautiously - Check orthostatics Hypokalemia: Mild. -Potassium 3.4, replace potassium orally -Follow up BMP and magnesium PPx: SCDs Discharge Planning May need SNF or HHC, case management consulted. Benjamin Beverly Mar 11, 2017 08:06
[2017-03-11] MEDS: LACTULOSE SYRUP 20 GM/30 ML CUP PO SCH ×4 (08:22→21:00)
[2017-03-11] MEDS: SPIRONOLACTONE 25 MG TAB PO SCH ×2 (08:23→18:03)
[2017-03-11] MEDS: RIFAXIMIN 550 MG TAB PO SCH ×2 (08:23→21:42)
[2017-03-11] MEDS: PANTOPRAZOLE SOD 40 MG DELAYED RELEASE TAB PO SCH (08:23)
[2017-03-11] MEDS: FUROSEMIDE 40 MG TAB PO SCH (08:24)
[2017-03-11] MEDS: SODIUM CHLORIDE 0.9% FLUSH 10 ML FLUSH IV FLUSH SCH ×2 (08:24→21:42)
[2017-03-11 09:17] LABS: AUTOMATED NEUTROPHIL # 2.6 TH/MM3 (1.8-7.7); BASOPHIL % 0.4 % (0.0-2.0); EOSINOPHIL # 0.3 TH/MM3 (0-0.4); EOSINOPHIL % 7.9 % (0.0-4.0); HEMATOCRIT 30.2 % (35.0-46.0); HEMO FLAGS DIFF FINAL; LYMPH % 19.7 % (9.0-44.0); LYMPHOCYTE # 0.9 TH/MM3 (1.0-4.8); MEAN CELL VOLUME 97.2 FL (80.0-100.0); MEAN CORPUSCULAR HEMOGLOBIN 32.7 PG (27.0-34.0); MEAN CORPUSCULAR HGB CONC 33.6 % (32.0-36.0); MONO % 12.3 % (0.0-8.0); NEUT % 59.7 % (16.0-70.0); PLATELET COUNT 102 TH/MM3 (150-450); RED BLOOD COUNT 3.11 MIL/MM3 (4.00-5.30); RED CELL DISTRIBUTION WIDTH 17.2 % (11.6-17.2); WHITE BLOOD COUNT 4.4 TH/MM3 (4.0-11.0)
[2017-03-11 09:38] LABS: BICARBONATE 20.9 MEQ/L (21.0-32.0); MAGNESIUM 1.6 MG/DL (1.5-2.5)
[2017-03-11] MEDS ORDERED: MAGNESIUM SULFATE 1 GM PREMIX 100 ML IV ONE (10:45)
--- NOTE | 2017-03-11 17:08 | HHI.GIFU ---
Subjective Remarks Resting in bed. No fevers or chills. No abdominal pain. States her abdomen is filling up again- she does have ascites, but soft and nontender- not tense. Objective Vitals I&O Vital Signs Date Time Temp Pulse Resp B/P (MAP) Pulse Ox O2 Delivery O2 Flow Rate FiO2 03/11/17 16:07 98.1 90 18 91/57 (68) 100 03/11/17 13:13 20 03/11/17 12:08 97.8 78 16 94/57 (69) 96 97/61 (73) 106/66 (79) 03/11/17 07:35 98.0 78 16 100/58 (72) 100 03/11/17 04:21 98.0 80 17 89/58 (68) 98 03/11/17 00:00 98.2 78 18 89/53 (65) 96 03/10/17 20:47 97.9 80 17 81/52 (62) 99 03/10/17 20:15 79 I/O 03/10/17 03/10/17 03/10/17 03/11/17 03/11/17 03/11/17 07:00 15:00 23:00 07:00 15:00 23:00 Intake Total 100 ml Balance 100 ml Intake IV Total 100 ml Laboratory Laboratory Tests Test 03/11/17 08:45 White Blood Count 4.4 Red Blood Count 3.11 Hemoglobin 10.2 Hematocrit 30.2 Mean Corpuscular Volume 97.2 Mean Corpuscular Hemoglobin 32.7 Mean Corpuscular Hemoglobin Concent 33.6 Red Cell Distribution Width 17.2 Platelet Count 102 Mean Platelet Volume 7.7 Neutrophils (%) (Auto) 59.7 Lymphocytes (%) (Auto) 19.7 Monocytes (%) (Auto) 12.3 Eosinophils (%) (Auto) 7.9 Basophils (%) (Auto) 0.4 Neutrophils # (Auto) 2.6 Lymphocytes # (Auto) 0.9 Monocytes # (Auto) 0.5 Eosinophils # (Auto) 0.3 Basophils # (Auto) 0.0 CBC Comment DIFF FINAL Differential Comment Blood Urea Nitrogen 15 Creatinine 0.99 Random Glucose 88 Calcium Level 8.2 Magnesium Level 1.6 Sodium Level 129 Potassium Level 4.0 Chloride Level 99 Carbon Dioxide Level 20.9 Anion Gap 9 Estimat Glomerular Filtration Rate 59 Date/Time Source Procedure Growth Status 03/09/17 10:20 Fluid Peritoneal Fluid Gram Stain - Final Resulted 03/09/17 10:20 Fluid Peritoneal Fluid Body Fluid Culture - Preliminary NO GROWTH IN 48 HOURS. Resulted Imaging Last Impressions Renal Ultrasound 03/09/17 0000 Signed Impressions: Service Date/Time: Thursday, March 09, 2017 10:18 - CONCLUSION: 1. Diffuse abdominal ascites. 2. The kidneys are normal in appearance bilaterally without evidence of hydronephrosis. 3. The small portion of liver visualized appears quite cirrhotic. Hussain Anderson MD Liver Ultrasound 03/09/17 0000 Signed Impressions: Service Date/Time: Thursday, March 09, 2017 13:29 - CONCLUSION: 1. Cirrhotic appearing, small liver with splenomegaly and ascites consistent with cirrhosis and portal hypertension. Hussain Anderson MD Cyst Biopsy Asp-Paracentesis US 03/09/17 0000 Signed Impressions: Service Date/Time: Thursday, March 09, 2017 09:18 - CONCLUSION: Uncomplicated ultrasound guided paracentesis. Ravi Russo MD Chest X-Ray 03/08/172146 Signed Impressions: Service Date/Time: Wednesday, March 08, 2017 22:12 - CONCLUSION: No evidence of acute cardiopulmonary disease. David Moreno MD Abdomen/Pelvis CT 03/08/17 0000 Signed Impressions: Service Date/Time: Wednesday, March 08, 2017 23:45 - CONCLUSION: 1. Liver cirrhosis with moderate to severe ascites. No bowel obstruction. No free air. No significant change from February 23. Rogelio Lynch MD Physical Exam HEENT: Normocephalic; atraumatic; no jaundice. CHEST: CTA CARDIAC: RRR ABDOMEN: Soft, distended with ascites- not tense, nontender; bowel sounds are present in all four quadrants. EXTREMITIES: No clubbing, cyanosis, or edema. SKIN: Normal; no rash; no jaundice. NAVIGATION TEACHER: No focal deficits; alert and oriented times three. Assessment and Plan Plan ASSESSMENT: - Recurrent ascites. S/P paracentesis 2 weeks ago. Worsening ascites since discharge. On Lasix 40mg daily and Spironolactone 100mg po BID at home. She reports that she follows a low sodium diet. S/P paracentesis, with removal of 5,000cc drained. WBC 60, but RBC 110. Neutrophils 5. Peritoneal cx pending. S/P Albumin. Diuretics on hold secondary to ARF. US liver (03/09/17)---> Cirrhotic appearing, small liver with splenomegaly and ascites consistent with cirrhosis and portal hypertension. There is no evidence of portal vein thrombosis to explain her decompensation and therefore believe this is worsening end stage liver disease. Albumin. Lasix. Spironolactone. She has ascites, but not tense. her abdomen is soft and nontender. - ESLD, Liver cirrhosis. No ETOH x 5 years. Was evaluated at [facility] in past (4-5 years ago), did not meet criteria to go on transplant list at that time per patient. She was briefly on hospice for ESLD about 4 years ago, but states that her goals have changed and she is wanting aggressive treatment and is a full code. CT Scan abdomen and pelvis without IV contrast (03/09/17)--> Liver cirrhosis with moderate to severe ascites. No bowel obstruction. No free air. No significant change from February 23. MELD Score 20. Lactulose, PPI, Propranolol, Xifaxan, Spironolactone, Lasix at home. No portal vein thrombosis appreciated on US. Likely worsening of end stage liver disease. She has been referred to [facility] as outpatient- pt states that she has not gone yet, but has received calls to set up appointment. - Hepatic encephalopathy. Ammonia 23. A/O x 3. Xifaxan, Lactulose. - Gastritis, duodenal AVMs. S/P recent EGD (03/02/17)---> 1. There was gastritis in the gastric antrum; biopsy was performed 2. Medium sized angiodysplastic lesion with no bleeding found in the 1st part of the duodenum; Bipolar (BICAP) cautery with a 10Fr probe was applied to the site(s) for 5 secs; with complete hemostasis achieved 3. Retroflexed views revealed no abnormalities. Pathology revealed reactive gastropathy, as may be seen with bile reflux or drug therapy. - Anemia. S/P recent EGD as above (03/02/17)---> gastritis and duodenal avms. Prior to that, EGD/Colonoscopy (08/30/16)----> acute gastritis was found in the gastric antrum and on the posterior wall of the stomach, portal hypertensive gastropathy was found in the gastric body, duodenal inflammation was found in the bulb and second portion of the dudoenum, retroflexed views revealed no abnormalities; normal colonoscopy, rectal varices, retroflexed views revealed internal grade II hemorrhoids, a digital rectal exam was performed and revealed medium external hemorrhoids. Duodenal polyp inflammatory polyp showing ulcer , reactive epithelial changes, gastric metaplasia, chronic inflammation and vascular proliferation. HH 10.2/30.2. - Coagulopathy. PT 19.4, INR 1.7 - KAYLEIGH, Improved. Renal US with diffuse abdominal ascites, kidneys normal in appearance bilaterally without evidence of hydronephrosis, small portion of liver visualized appears quite cirrhotic. Renal following, appears to have prerenal azotemia which has improved after paracentesis. Albumin, lasix, Aldactone. PLAN: - Low sodium diet, fluid restriction - Albumin today- d/c in am. - Cont. Spironolactone - Cont. Lasix - Cont. PPI - Cont. Xifaxan - Cont. Lactulose - Monitor labs - Monitor I/O's - Palliative care following - Renal following - Supportive care - Further recommendations to follow based on results of above - No evidence of portal vein thrombosis on US to explain decompensation. This is likely worsening of her end stage liver disease. Pt has referral to [facility] for transplant evaluation as outpatient - Pt seen and examined by Dr. Woodson and myself and this note is written on her behalf. Caridad Baig Mar 11, 2017 17:08
[2017-03-12] VITALS (7 sets, daily range): BP systolic 88–112; BP diastolic 53–67; PULSE 77–90; RESP 16–18; TEMP 97.8–98.8; O2SAT 97–100
[2017-03-12] MEDS: LEVOTHYROXINE SODIUM 50 MCG TAB PO SCH (05:35)
[2017-03-12] MEDS: ALBUMIN HUMAN 25% 12.5 GM/50 ML BAGP IV SCH (05:37)
--- NOTE | 2017-03-12 08:17 | HHI.GIFU ---
Subjective Remarks Doing well. Tolerating diet. No n/v. No abdominal pain. (Caridad Baig) Objective Vitals I&O Vital Signs Date Time Temp Pulse Resp B/P (MAP) Pulse Ox O2 Delivery O2 Flow Rate FiO2 03/12/17 04:45 98.8 86 18 92/53 (66) 98 108/54 (72) 112/67 (82) 03/12/17 04:01 77 03/12/17 00:45 98.7 80 18 96/55 (69) 97 03/12/17 00:00 80 03/11/17 20:52 98.0 90 18 89/54 (66) 98 03/11/17 20:06 82 03/11/17 16:07 98.1 90 18 91/57 (68) 100 03/11/17 13:13 20 03/11/17 12:08 97.8 78 16 94/57 (69) 96 97/61 (73) 106/66 (79) I/O 03/11/17 03/11/17 03/11/17 03/12/17 03/12/17 03/12/17 07:00 15:00 23:00 07:00 15:00 23:00 Intake Total 100 ml Balance 100 ml Intake IV Total 100 ml Laboratory Laboratory Tests Test 03/11/17 08:45 White Blood Count 4.4 Red Blood Count 3.11 Hemoglobin 10.2 Hematocrit 30.2 Mean Corpuscular Volume 97.2 Mean Corpuscular Hemoglobin 32.7 Mean Corpuscular Hemoglobin Concent 33.6 Red Cell Distribution Width 17.2 Platelet Count 102 Mean Platelet Volume 7.7 Neutrophils (%) (Auto) 59.7 Lymphocytes (%) (Auto) 19.7 Monocytes (%) (Auto) 12.3 Eosinophils (%) (Auto) 7.9 Basophils (%) (Auto) 0.4 Neutrophils # (Auto) 2.6 Lymphocytes # (Auto) 0.9 Monocytes # (Auto) 0.5 Eosinophils # (Auto) 0.3 Basophils # (Auto) 0.0 CBC Comment DIFF FINAL Differential Comment Blood Urea Nitrogen 15 Creatinine 0.99 Random Glucose 88 Calcium Level 8.2 Magnesium Level 1.6 Sodium Level 129 Potassium Level 4.0 Chloride Level 99 Carbon Dioxide Level 20.9 Anion Gap 9 Estimat Glomerular Filtration Rate 59 Date/Time Source Procedure Growth Status 03/09/17 10:20 Fluid Peritoneal Fluid Gram Stain - Final Resulted 03/09/17 10:20 Fluid Peritoneal Fluid Body Fluid Culture - Preliminary NO GROWTH IN 48 HOURS. Resulted Imaging Last Impressions Renal Ultrasound 03/09/17 0000 Signed Impressions: Service Date/Time: Thursday, March 09, 2017 10:18 - CONCLUSION: 1. Diffuse abdominal ascites. 2. The kidneys are normal in appearance bilaterally without evidence of hydronephrosis. 3. The small portion of liver visualized appears quite cirrhotic. Hussain Anderson MD Liver Ultrasound 03/09/17 0000 Signed Impressions: Service Date/Time: Thursday, March 09, 2017 13:29 - CONCLUSION: 1. Cirrhotic appearing, small liver with splenomegaly and ascites consistent with cirrhosis and portal hypertension. Hussain Anderson MD Cyst Biopsy Asp-Paracentesis US 03/09/17 0000 Signed Impressions: Service Date/Time: Thursday, March 09, 2017 09:18 - CONCLUSION: Uncomplicated ultrasound guided paracentesis. Ravi Russo MD Chest X-Ray 03/08/172146 Signed Impressions: Service Date/Time: Wednesday, March 08, 2017 22:12 - CONCLUSION: No evidence of acute cardiopulmonary disease. David Moreno MD Abdomen/Pelvis CT 03/08/17 0000 Signed Impressions: Service Date/Time: Wednesday, March 08, 2017 23:45 - CONCLUSION: 1. Liver cirrhosis with moderate to severe ascites. No bowel obstruction. No free air. No significant change from February 23. Rogelio Lynch MD Physical Exam HEENT: Normocephalic; atraumatic; mildjaundice. CHEST: CTA CARDIAC: RRR ABDOMEN: Soft, distended with ascites- not tense, nontender; bowel sounds are present in all four quadrants. EXTREMITIES: No clubbing, cyanosis, or edema. SKIN: Normal; no rash; no jaundice. MASTER CHEF: No focal deficits; alert and oriented times three. (Caridad Baig) Assessment and Plan Plan ASSESSMENT: - Recurrent ascites. S/P paracentesis 2 weeks ago. Worsening ascites since discharge. On Lasix 40mg daily and Spironolactone 100mg po BID at home. She reports that she follows a low sodium diet. S/P paracentesis, with removal of 5,000cc drained. WBC 60, but RBC 110. Neutrophils 5. Peritoneal cx pending. S/P Albumin. Diuretics on hold secondary to ARF. US liver (03/09/17)---> Cirrhotic appearing, small liver with splenomegaly and ascites consistent with cirrhosis and portal hypertension. There is no evidence of portal vein thrombosis to explain her decompensation and therefore believe this is worsening end stage liver disease. Albumin (last dose this am). Lasix. Spironolactone. She has ascites, but not tense. her abdomen is soft and nontender. - ESLD, Liver cirrhosis. No ETOH x 5 years. Was evaluated at [facility] in past (4-5 years ago), did not meet criteria to go on transplant list at that time per patient. She was briefly on hospice for ESLD about 4 years ago, but states that her goals have changed and she is wanting aggressive treatment and is a full code. CT Scan abdomen and pelvis without IV contrast (03/09/17)--> Liver cirrhosis with moderate to severe ascites. No bowel obstruction. No free air. No significant change from February 23. MELD Score 20. Lactulose, PPI, Propranolol, Xifaxan, Spironolactone, Lasix at home. No portal vein thrombosis appreciated on US. Likely worsening of end stage liver disease. She has been referred to [facility] as outpatient- pt states that she has not gone yet, but has received calls to set up appointment. - Hepatic encephalopathy. Ammonia 23. A/O x 3. Xifaxan, Lactulose. - Gastritis, duodenal AVMs. S/P recent EGD (03/02/17)---> 1. There was gastritis in the gastric antrum; biopsy was performed 2. Medium sized angiodysplastic lesion with no bleeding found in the 1st part of the duodenum; Bipolar (BICAP) cautery with a 10Fr probe was applied to the site(s) for 5 secs; with complete hemostasis achieved 3. Retroflexed views revealed no abnormalities. Pathology revealed reactive gastropathy, as may be seen with bile reflux or drug therapy. - Anemia. S/P recent EGD as above (03/02/17)---> gastritis and duodenal avms. Prior to that, EGD/Colonoscopy (08/30/16)----> acute gastritis was found in the gastric antrum and on the posterior wall of the stomach, portal hypertensive gastropathy was found in the gastric body, duodenal inflammation was found in the bulb and second portion of the dudoenum, retroflexed views revealed no abnormalities; normal colonoscopy, rectal varices, retroflexed views revealed internal grade II hemorrhoids, a digital rectal exam was performed and revealed medium external hemorrhoids. Duodenal polyp inflammatory polyp showing ulcer , reactive epithelial changes, gastric metaplasia, chronic inflammation and vascular proliferation. - Coagulopathy. PT 19.4, INR 1.7 on 03/10. - KAYLEIGH, Improved. Renal US with diffuse abdominal ascites, kidneys normal in appearance bilaterally without evidence of hydronephrosis, small portion of liver visualized appears quite cirrhotic. Renal following, appears to have prerenal azotemia which has improved after paracentesis. Albumin, lasix, Aldactone. PLAN: - Okay to d/c home from GI standpoint - Low sodium diet, fluid restriction - Cont. Spironolactone - Cont. Lasix - Cont. PPI - Cont. Xifaxan - Cont. Lactulose - FU JULIAN 2 weeks - Outpatient referral to [facility] for transplant evaluation - Pt seen and examined by Dr. Reed and myself and this note is written on his behalf. (Caridad Baig) Physician Comments Seen and examined with [facility], doing well. Going home today, will call liver center next week. GI fu upon dc. Paracentesis 2 days ago. Thank you (Amy Reed MD) Caridad Baig Mar 12, 2017 08:17 Amy Reed MD Mar 12, 2017 10:13
[2017-03-12] MEDS: LACTULOSE SYRUP 20 GM/30 ML CUP PO SCH ×2 (08:39→12:22)
[2017-03-12] MEDS: SODIUM CHLORIDE 0.9% FLUSH 10 ML FLUSH IV FLUSH SCH (08:40)
[2017-03-12] MEDS: FUROSEMIDE 40 MG TAB PO SCH (08:40)
[2017-03-12] MEDS: PANTOPRAZOLE SOD 40 MG DELAYED RELEASE TAB PO SCH (08:40)
[2017-03-12] MEDS: SPIRONOLACTONE 25 MG TAB PO SCH (08:40)
[2017-03-12] MEDS: RIFAXIMIN 550 MG TAB PO SCH (08:41)
[2017-03-12] MEDS ORDERED: SPIR50TA PO (09:17)
--- NOTE | 2017-03-12 09:18 | HHI.FF ---
Face to Face Verification Diagnosis: (1) Liver failure (2) Acute renal failure (3) Abdominal pain (4) Hypotension Home Health Nursing Order: Medical education Signs/symptoms of disease process Medication education-adverse effect Nursing assessment with vital signs I have seen patient Michelle Santamaria on 03/12/17. My clinical findings support the need for the requested home health care services because: Ltd mobility - disease progression Deconditioned w/ increased weakness I certify that my clinical findings support that this patient is homebound because: Unsteady gait/balance Poor cardiac reserve Benjamin Beverly Mar 12, 2017 09:18
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
== END 2017-03-12 12:51 | disposition home or self-care (01) | DRG 433 ==
LOC: NEPE 21:19 → INTOOBSV 03-09 01:14 → NEDA 03-09 01:14 → NEPFCDU 03-09 02:12 → OBSVTOIN 03-09 10:48
PROVIDERS: ADMIT Internal Medicine; ATTEND Internal Medicine
PROC: 0W9G3ZZ Drainage of Peritoneal Cavity, Percutaneous Approach (ICD-10-PCS; principal; 2017-03-09)
DX: K70.31 Alcoholic cirrhosis of liver with ascites (principal); K76.6 Portal hypertension; N17.9 Acute kidney failure, unspecified; E46 Unspecified protein-calorie malnutrition; K72.90 Hepatic failure, unspecified without coma; E87.1 Hypo-osmolality and hyponatremia; D69.59 Other secondary thrombocytopenia; J45.909 Unspecified asthma, uncomplicated; F32.9 Major depressive disorder, single episode, unspecified; F41.9 Anxiety disorder, unspecified; E03.9 Hypothyroidism, unspecified; Z86.59 Personal history of other mental and behavioral disorders; R62.7 Adult failure to thrive; K21.9 Gastro-esophageal reflux disease without esophagitis; K31.819 Angiodysplasia of stomach and duodenum without bleeding; E87.6 Hypokalemia
CPT/HCPCS: 49083; 71010; 74176; 76705; 76775; 80048; 80076; 82042; 82140; 82570; 82945; 83605; 83615; 83690; 83735; 84155; 84157; 84300; 85025; 85610; 85730; 87070; 87205; 89051; 96361; 96374; 96375; C1729; G8987-GP; G8988-GP; J2405; J3475; J7040; J7050; P9047

== ENCOUNTER 2017-03-18 09:59 | Emergency (ER) | payer MEDICAID ==
[~2017-03-18 09:59] MED LIST changes: -ALDA50TA2 PO; -CIPR-9 PO; -METR-1 PO; +PROP10TA6 PO; +SPIR50TA PO
[2017-03-18 10:11] VITALS: BP 106/66; PULSE 67; RESP 16; TEMP 98.5; O2SAT 99
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
[2017-03-18] MEDS ORDERED: ONDANSETRON HCL 4 MG/2 ML VIAL IVP ONE (10:30)
[2017-03-18 10:43] LABS: EOSINOPHIL # 0.2 TH/MM3 (0-0.4); HEMATOCRIT 34.7 % (35.0-46.0); HEMO FLAGS DIFF FINAL; LYMPH % 24.1 % (9.0-44.0); LYMPHOCYTE # 0.9 TH/MM3 (1.0-4.8); MEAN CELL VOLUME 95.5 FL (80.0-100.0); MEAN CORPUSCULAR HEMOGLOBIN 32.4 PG (27.0-34.0); MEAN CORPUSCULAR HGB CONC 33.9 % (32.0-36.0); MONO % 19.9 % (0.0-8.0); PLATELET COUNT 115 TH/MM3 (150-450); RED BLOOD COUNT 3.64 MIL/MM3 (4.00-5.30); RED CELL DISTRIBUTION WIDTH 19.2 % (11.6-17.2); WHITE BLOOD COUNT 3.9 TH/MM3 (4.0-11.0)
[2017-03-18 10:52] LABS: CHLORIDE 99 MEQ/L (98-107); POTASSIUM 3.6 MEQ/L (3.5-5.1); SODIUM (NA) 133 MEQ/L (136-145)
[2017-03-18 10:56] LABS: ANION GAP 10 MEQ/L (5-15); BICARBONATE 24.3 MEQ/L (21.0-32.0); BLOOD UREA NITROGEN 12 MG/DL (7-18)
[2017-03-18 10:59] LABS: ALT (GPT) 25 U/L (10-53); AST (GOT) 44 U/L (15-37); GLOMERULAR FILTRATION RATE 79 ML/MIN (>89)
[2017-03-18 11:00] LABS: TOTAL BILIRUBIN ADULT 3.4 MG/DL (0.2-1.0)
[2017-03-18 11:02] LABS: ALKALINE PHOSPHATASE 124 U/L (45-117)
[2017-03-18] MEDS ORDERED: PROM25TA10 PO (11:19)
[2017-03-18] MEDS ORDERED: PROMETHAZINE INJ 25 MG/ML VIAL IM ONE (11:30)
[2017-03-18 11:38] VITALS: BP 106/68
== END 2017-03-18 11:42 | disposition home or self-care (01) ==
LOC: PHED 09:59
DX: K70.31 Alcoholic cirrhosis of liver with ascites (principal)
CPT/HCPCS: 80053; 85025; 96372; 96374; 99284; J2405; J2550

== ENCOUNTER 2017-03-19 09:36 | Observation (INO) | payer MEDICAID ==
[2017-03-19] VITALS (13 sets, daily range): BP systolic 92–110; BP diastolic 52–66; PULSE 69–102; RESP 12–23; TEMP 98–98.8; O2SAT 96–100
[~2017-03-19] VITALS: Ht 162.6 cm; Wt 55.2 kg
[~2017-03-19 09:36] MED LIST changes: +PROM25TA10 PO
[2017-03-19] MEDS ORDERED: SODIUM CHLOR 0.9% 1000 ML INJ 1,000 ML IV SCH ×2 (09:41→12:34)
[2017-03-19] MEDS ORDERED: DEXTROSE 50% IN WATER 50 ML VIAL(D50) IV PRN ×2 (09:45→13:30)
[2017-03-19] MEDS ORDERED: SODIUM CHLORIDE 0.9% FLUSH 5 ML FLUSH IV FLUSH PRN (09:45)
[2017-03-19 09:57] LABS: AUTOMATED NEUTROPHIL # 2.4 TH/MM3 (1.8-7.7); BASOPHIL # 0.1 TH/MM3 (0-0.2); BASOPHIL % 1.3 % (0.0-2.0); EOSINOPHIL # 0.1 TH/MM3 (0-0.4); EOSINOPHIL % 3.5 % (0.0-4.0); HEMATOCRIT 32.3 % (35.0-46.0); HEMO FLAGS DIFF FINAL; LYMPH % 21.3 % (9.0-44.0); LYMPHOCYTE # 0.9 TH/MM3 (1.0-4.8); MEAN CELL VOLUME 94.6 FL (80.0-100.0); MEAN CORPUSCULAR HEMOGLOBIN 31.5 PG (27.0-34.0); MEAN CORPUSCULAR HGB CONC 33.4 % (32.0-36.0); MONO % 13.7 % (0.0-8.0); NEUT % 60.2 % (16.0-70.0); PLATELET COUNT 121 TH/MM3 (150-450); RED BLOOD COUNT 3.42 MIL/MM3 (4.00-5.30); RED CELL DISTRIBUTION WIDTH 18.3 % (11.6-17.2); WHITE BLOOD COUNT 4.1 TH/MM3 (4.0-11.0)
--- NOTE | 2017-03-19 10:01 | PD ---
HPI Chief Complaint: Altered Mental Status Time Seen by Provider: 09:41 Travel History International Travel<30 days: No Contact w/Intl Traveler<30days: No Traveled to known affect area: No History of Present Illness HPI 51-year-old female with history of alcoholic cirrhosis, end-stage liver disease , currently being evaluated for liver transplant, presents to the ER today brought in by because of worsening lethargy and disorientation, has not been eating or drinking in several days according to the . He states that she was seen yesterday for similar symptoms but at that time vital signs were stable and she had been released. She has had no significant vomiting of blood or any black stools, no fevers according to . Modifying Factors: None Associated Signs & Symptoms: Worsening lethargy, disorientation Risk Factors: Cirrhosis PFSH Past Medical History Hx Anticoagulant Therapy: No Arthritis: Yes Asthma: Yes Autoimmune Disease: No Anxiety: Yes Depression: Yes Heart Rhythm Problems: No Cancer: No Cardiovascular Problems: No High Cholesterol: No Chemotherapy: No Chest Pain: No Congestive Heart Failure: No Cirrhosis: Yes (end stage) COPD: No Cerebrovascular Accident: No Diabetes: No Diminished Hearing: No Endocrine: Yes Gastrointestinal Disorders: Yes (HX OF UPPER GI BLEED;ESOPHAGEAL VARICES ; BLEEDING ULCERS) GERD: No Genitourinary: No Headaches: No Hepatitis: Yes (ALCOHOLIC HEPATITIS) Hiatal Hernia: Yes Heparin Induced Thrombocytopen: No Hypertension: No Immune Disorder: No Implanted Vascular Access Dvce: No Kidney Stones: No Musculoskeletal: No Neurologic: No Psychiatric: Yes Reproductive: No Respiratory: No Immunizations Current: Yes Migraines: No Radiation Therapy: No Renal Failure: No Seizures: No Sickle Cell Disease: No Sleep Apnea: No Thyroid Disease: Yes (Hypothyroidism) Ulcer: No Menopausal: Yes Past Surgical History Abdominal Surgery: Yes (lap benjamin,umbilical hernia repair) AICD: No Body Medical Devices: NONE Cardiac Surgery: No Cholecystectomy: Yes (2006) Ear Surgery: No Endocrine Surgery: No Eye Surgery: No Genitourinary Surgery: No Gynecologic Surgery: No Hysterectomy: No Insulin Pump: No Joint Replacement: Yes (LEFT HIP REPLACEMENT) Neurologic Surgery: No Oral Surgery: No Pacemaker: No Thoracic Surgery: No Other Surgery: Yes (Cholecystectomy) Social History Alcohol Use: No (H/O ALCOHOLISM ) Tobacco Use: No Substance Use: No Allergies-Medications (Allergen,Severity, Reaction): Coded Allergies: codeine (Unverified Allergy, Severe, VOMITING, 03/19/17) MILD REACTION- VOMITING morphine (Unverified Allergy, Severe, PT DENIES, 03/19/17) MILD REACTION aspirin (Unverified Adverse Reaction, Severe, Bleeding, 03/19/17) STOMACH "BLEEDS" PER PT ; SEVERE REACTION nortriptyline (Unverified Adverse Reaction, Severe, Hallucinations, ) vomiting ; INTERMEDIATE REACTION Reported Meds & Prescriptions Reported Meds & Active Scripts Active Phenergan (Promethazine HCl) 25 Mg Tablet 25 Mg PO Q6H PRN Spironolactone 50 Mg Tab 50 Mg PO BIDPC Ondansetron Odt 4 Mg Tab 4 Mg SL Q6HR PRN Roxicodone (Oxycodone HCl) 5 Mg Tab 5 Mg PO Q8HR USE SPARRINGLY POSSIBLE Potassium Chloride ER (Potassium Chloride) 10 Meq Tab 10 Meq PO DAILY Magnesium Oxide 400 Mg Tab 400 Mg PO DAILY 30 Days Levothyroxine (Levothyroxine Sodium) 50 Mcg Tab 50 Mcg PO DAILY Xifaxan (Rifaximin) 550 Mg Tab 550 Mg PO BID Reported Propranolol (Propranolol HCl) 10 Mg Tab 10 Mg PO Q12HR Lactulose Liq (Lactulose) 10 Gm/15 Ml Soln 30 Ml PO BID PRN Pantoprazole (Pantoprazole Sodium) 40 Mg Tab 40 Mg PO DAILY Furosemide 40 Mg Tab 40 Mg PO DAILY Review of Systems Except as stated in HPI: all other systems reviewed are Neg Physical Exam Narrative GENERAL: Well-developed middle age female patient currently in moderate distress , disoriented, lethargic. SKIN: Focused skin assessment warm/dry. Pale. HEAD: Atraumatic. Normocephalic. EYES: Pupils equal and round. Mild scleral icterus. No injection or drainage. ENT: No nasal bleeding or discharge. Mucous membranes pink and moist. Airway is intact. NECK: Trachea midline. No JVD. CARDIOVASCULAR: Regular rate and rhythm. No murmur appreciated. RESPIRATORY: No accessory muscle use. Clear to auscultation. Breath sounds equal bilaterally. GASTROINTESTINAL: Abdomen soft, non-tender, nondistended. MUSCULOSKELETAL: No obvious deformities. No clubbing. No cyanosis. No edema. NEUROLOGICAL: Lethargic. Moving all 4 extremities. Poorly responsive to pain. PSYCHIATRIC: Lethargic, disoriented Data Data Last Documented VS Vital Signs Date Time Temp Pulse Resp B/P (MAP) Pulse Ox O2 Delivery O2 Flow Rate FiO2 03/19/17 10:00 83 16 104/57 (73) 100 Room Air 03/19/17 09:41 98.8 Orders Orders Electrocardiogram (03/19/17 09:41) Ammonia (03/19/17 09:41) Complete Blood Count With Diff (03/19/17 09:41) Comprehensive Metabolic Panel (03/19/17 09:41) Troponin I (03/19/17 09:41) Urinalysis - C+S If Indicated (03/19/17 09:41) Lactic Acid Sepsis Protocol (03/19/17 09:41) Arterial Blood Gas (Abg) (03/19/17 09:41) Blood Culture (03/19/17 09:41) Chest, Single Ap (03/19/17 09:41) Ct Brain W/O Iv Contrast(Rout) (03/19/17 09:41) Blood Glucose (03/19/17 09:41) Ecg Monitoring (03/19/17 09:41) Iv Access Insert/Monitor (03/19/17 09:41) Cath For Specimen (03/19/17 09:41) Oximetry (03/19/17 09:41) Dextrose 50% In Abdoulaye (Vial) Inj (D50w (Vi (03/19/17 09:45) Sodium Chloride 0.9% Flush (Ns Flush) (03/19/17 09:45) Sodium Chlor 0.9% 1000 Ml Inj (Ns 1000 M (03/19/17 09:41) Drug Screen, Random Urine (03/19/17 09:41) Alcohol (Ethanol) (03/19/17 09:41) Admit Order (Ed Use Only) (03/19/17 12:12) Labs Laboratory Tests Test 03/19/17 09:45 03/19/17 09:57 03/19/17 10:09 White Blood Count 4.1 TH/MM3 Red Blood Count 3.42 MIL/MM3 Hemoglobin 10.8 GM/DL Hematocrit 32.3 % Mean Corpuscular Volume 94.6 FL Mean Corpuscular Hemoglobin 31.5 PG Mean Corpuscular Hemoglobin Concent 33.4 % Red Cell Distribution Width 18.3 % Platelet Count 121 TH/MM3 Mean Platelet Volume 7.4 FL Neutrophils (%) (Auto) 60.2 % Lymphocytes (%) (Auto) 21.3 % Monocytes (%) (Auto) 13.7 % Eosinophils (%) (Auto) 3.5 % Basophils (%) (Auto) 1.3 % Neutrophils # (Auto) 2.4 TH/MM3 Lymphocytes # (Auto) 0.9 TH/MM3 Monocytes # (Auto) 0.6 TH/MM3 Eosinophils # (Auto) 0.1 TH/MM3 Basophils # (Auto) 0.1 TH/MM3 CBC Comment DIFF FINAL Differential Comment Blood Urea Nitrogen 18 MG/DL Creatinine 0.83 MG/DL Random Glucose 74 MG/DL Total Protein 7.6 GM/DL Albumin 2.5 GM/DL Calcium Level 8.2 MG/DL Alkaline Phosphatase 83 U/L Aspartate Amino Transf (AST/SGOT) 58 U/L Alanine Aminotransferase (ALT/SGPT) 26 U/L Total Bilirubin 3.5 MG/DL Sodium Level 130 MEQ/L Potassium Level 4.5 MEQ/L Chloride Level 99 MEQ/L Carbon Dioxide Level 22.4 MEQ/L Anion Gap 9 MEQ/L Estimat Glomerular Filtration Rate 72 ML/MIN Lactic Acid Level 1.6 mmol/L Ammonia 15 MCMOL/L Troponin I LESS THAN 0.02 NG/ML Ethyl Alcohol Level LESS THAN 3 MG/DL Blood Gas Puncture Site LT RADIAL Blood Gas Patient Temperature 98.6 Blood Gas HCO3 22 mmol/L Blood Gas Base Excess -1.7 mmol/L Blood Gas Oxygen Saturation 93 % Arterial Blood pH 7.46 Arterial Blood Partial Pressure CO2 31 mmHG Arterial Blood Partial Pressure O2 79 mmHG Arterial Blood Oxygen Content 11.9 Vol % Arterial Blood Carboxyhemoglobin 2.2 % Arterial Blood Methemoglobin 1.1 % Blood Gas Hemoglobin 9.0 G/DL Oxygen Delivery Device ROOM AIR Blood Gas Inspired Oxygen 21 % Urine Collection Type CATH Urine Color DILAN Urine Turbidity SLIGHT Urine pH 5.5 Urine Specific [place] 1.029 Urine Protein TRACE mg/dL Urine Glucose (UA) 250 mg/dL Urine Ketones TRACE mg/dL Urine Occult Blood NEG Urine Nitrite POS Urine Bilirubin MOD Urine Leukocyte Esterase NEG Urine WBC 3-5 /hpf Urine Squamous Epithelial Cells 0-5 /hpf Urine Amorphous Sediment MOD Urine Hyaline Casts 0-2 /lpf Urine Fine Granular Casts 0-2 /lpf Microscopic Urinalysis Comment CATH-CULT NOT IND Urine Collection Time 1009 Urine Opiates Screen NEG Urine Barbiturates Screen NEG Urine Amphetamines Screen NEG Urine Benzodiazepines Screen NEG Urine Cocaine Screen NEG Urine Cannabinoids Screen NEG MDM Medical Decision Making Medical Screen Exam Complete: Yes Emergency Medical Condition: Yes Medical Record Reviewed: Yes Interpretation(s) EKG shows NSR, no ST elevation or depression, and no arrhythmias. No significant T-wave inversions. Laboratory Tests Test 03/19/17 09:45 03/19/17 09:57 03/19/17 10:09 Red Blood Count 3.42 MIL/MM3 (4.00-5.30) Hemoglobin 10.8 GM/DL (11.6-15.3) Hematocrit 32.3 % (35.0-46.0) Red Cell Distribution Width 18.3 % (11.6-17.2) Platelet Count 121 TH/MM3 (150-450) Monocytes (%) (Auto) 13.7 % (0.0-8.0) Lymphocytes # (Auto) 0.9 TH/MM3 (1.0-4.8) Albumin 2.5 GM/DL (3.4-5.0) Calcium Level 8.2 MG/DL (8.5-10.1) Aspartate Amino Transf (AST/SGOT) 58 U/L (15-37) Total Bilirubin 3.5 MG/DL (0.2-1.0) Sodium Level 130 MEQ/L (136-145) Estimat Glomerular Filtration Rate 72 ML/MIN (>89) Troponin I LESS THAN 0.02 NG/ML Arterial Blood pH 7.46 (7.380-7.420) Arterial Blood Partial Pressure CO2 31 mmHG (38-42) Arterial Blood Oxygen Content 11.9 Vol % (12.0-20.0) Blood Gas Hemoglobin 9.0 G/DL (12.0-16.0) Urine Color DILAN (YELLW/STRAW) Urine Glucose (UA) 250 mg/dL (NEG) Urine Ketones TRACE mg/dL (NEG) Urine Nitrite POS (NEG) Urine Bilirubin MOD (NEG) Last [address] 03/19/17 0955 Signed Impressions: Service Date/Time: Sunday, March 19, 2017 10:28 - CONCLUSION: No acute intracranial abnormality is identified. There is moderate generalized cerebral atrophy. David Child MD Chest X-Ray 03/19/17 0965 Signed Impressions: Service Date/Time: Sunday, March 19, 2017 10:35 - CONCLUSION: No acute cardiopulmonary abnormality is identified. David Child MD Differential Diagnosis Altered mental status: Hepatic encephalopathy versus sepsis versus metabolic issues Narrative Course CT the brain is negative. Lab work shows mild hyponatremia but is otherwise unremarkable. Patient was hypoglycemic on initial evaluation and dextrose was given the ER but mental status did not improve after given dextrose. She does not have focal neurological deficits. Airway is intact. However, considering the change in mental status according to her since yesterday, poor responsiveness in the ER, my plan would be to admit her for further evaluation and observation. Case was discussed with Dr. Christie for admission. Diagnosis Primary Impression: Altered mental status Additional Impression: Alcoholic cirrhosis of liver Admitting Information Admitting Physician Requests: Admit Jennifer Levi MD Mar 19, 2017 10:01
[2017-03-19 10:05] LABS: BLOOD GAS BASE EXCESS -1.7 mmol/L (-2-2); BLOOD GAS CARBOXYHEMOGLOBIN 2.2 % (0-4); BLOOD GAS HCO3 22 mmol/L (22-26); BLOOD GAS METHEMOGLOBIN 1.1 % (0-2); BLOOD GAS O2 HGB SATURATION 93 % (90-100); BLOOD GAS OXYGEN CONTENT 11.9 Vol % (12.0-20.0); BLOOD GAS PCO2 31 mmHG (38-42); BLOOD GAS PO2 79 mmHG (61-120); CRITICAL VALUE NO; FIO2 21 %; NUMBER OF ARTERIAL PUNCTURES 1; OXYGEN DEVICE ROOM AIR; STAT YES; TEMP CORR TO 98.6; ULNAR PULSE PRESENT
[2017-03-19 10:06] LABS: DRAW SITE LT RADIAL
[2017-03-19 10:22] LABS: ALKALINE PHOSPHATASE 83 U/L (45-117); ALT (GPT) 26 U/L (10-53); ANION GAP 9 MEQ/L (5-15); AST (GOT) 58 U/L (15-37); BICARBONATE 22.4 MEQ/L (21.0-32.0); BLOOD UREA NITROGEN 18 MG/DL (7-18); CHLORIDE 99 MEQ/L (98-107); GLOMERULAR FILTRATION RATE 72 ML/MIN (>89); POTASSIUM 4.5 MEQ/L (3.5-5.1); SODIUM (NA) 130 MEQ/L (136-145); TOTAL BILIRUBIN ADULT 3.5 MG/DL (0.2-1.0)
[2017-03-19 10:23] LABS: BLOOD, URINE NEG (NEG); GLUCOSE,URINE 250 mg/dL (NEG); KETONE, URINE TRACE mg/dL (NEG); NITRITE,URINE POS (NEG); PH, URINE 5.5 (5.0-8.5)
[2017-03-19 10:23] LABS: ALCOHOL LESS THAN 3 MG/DL (0-5)
[2017-03-19 10:27] LABS: METHOD OF COLLECTION CATH; URINE COLOR AMBER (YELLW/STRAW)
[2017-03-19 10:29] LABS: CULTURE IF INDICATED CATH CULTURE NOT IND
[2017-03-19 10:30] LABS: COMMENT (UR) CATH-CULT NOT IND; COMMENT2 (UR) MUCOUS PRESENT; HYALINE CAST, URINE 0-2 /lpf (RARE); SQUAMOUS EPITHELIAL CELL URINE 0-5 /hpf (0-5)
--- NOTE | 2017-03-19 11:09 | RADRPT ---
EXAM DATE/TIME: 03/19/2017 10:35 [facility] COMPARISON: CHEST SINGLE AP, March 08, 2017, 22:12. INDICATIONS : Syncope. Lethargic. MEDICAL HISTORY : None. SURGICAL HISTORY : None. ENCOUNTER: Initial ACUITY: 1 day PAIN SCORE: Non-responsive. LOCATION: Bilateral chest FINDINGS: Portable AP view of the chest demonstrates a normal-sized cardiac silhouette. No effusion, consolidat ion, or pneumothorax is visualized. The bones and soft tissues demonstrate no acute abnormality. Lung s are underinflated. There are cholecystectomy clips. CONCLUSION: No acute cardiopulmonary abnormality is identified. David Child MD on March 19, 2017 at 11:07 Board Certified Radiologist. This report was verified electronically.
--- NOTE | 2017-03-19 11:16 | RADRPT ---
EXAM DATE/TIME: 03/19/2017 10:28 [facility] COMPARISON: CT BRAIN W/O CONTRAST, November 19, 2016, 14:38. INDICATIONS : Altered mental status, non-responsive. RADIATION DOSE: 61.89 CTDIvol (mGy) MEDICAL HISTORY : Hypothyroidism. Cirrhosis. SURGICAL HISTORY : None. ENCOUNTER: Initial ACUITY: 1 day PAIN SCALE: Non-responsive LOCATION: cranial TECHNIQUE: Multiple contiguous axial images were obtained of the head. Using automated exposure control and adj ustment of the mA and/or kV according to patient size, radiation dose was kept as low as reasonably a chievable to obtain optimal diagnostic quality images. DICOM format image data is available electro nically for review and comparison. FINDINGS: CEREBRUM: There is moderate generalized atrophy. Ventricles are normal in size. There is bilateral basal gangli a calcification.. No evidence of midline shift, mass lesion, hemorrhage or acute infarction. No ext ra-axial fluid collections are seen. POSTERIOR FOSSA: The cerebellum and brainstem demonstrate no acute finding.. The 4th ventricle is midline. The cereb ellopontine angle is unremarkable. EXTRACRANIAL: There is mucoperiosteal thickening within the right posterior ethmoid sinus. SKULL: The calvaria is intact. No evidence of skull fracture. CONCLUSION: No acute intracranial abnormality is identified. There is moderate generalized cerebral atrophy. David Child MD on March 19, 2017 at 11:11 Board Certified Radiologist. This report was verified electronically.
[2017-03-19] MEDS ORDERED: NALOXONE HCL 0.4 MG/ML AMP IV PUSH PRN (12:45)
[2017-03-19] MEDS ORDERED: SODIUM CHLORIDE 0.9% FLUSH 10 ML FLUSH IV FLUSH PRN (12:45)
[2017-03-19] MEDS ORDERED: GLUCAGON 1 MG/ML VIAL IM PRN (13:30)
--- NOTE | 2017-03-19 13:31 | HHI.HP ---
HPI Service [facility] Primary Care Physician David Vo MD Admission Diagnosis altered mental status/cirrhosis Diagnoses: Chief Complaint: sleepy Travel History International Travel<30 Days: No Contact w/Intl Traveler <30 Da: No Traveled to Known Affected Are: No History of Present Illness This is a 51year old female with known alcoholic cirrhosis who came in the ER because her believes she has worsening lethargy and disorientation. She has not been eating or drinking in several days and has been sleeping a lot. There have been no fever and no pain complaint. On exam she is somnolent and groans. 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 Past Surgical History left hip gb Reported Medications reviewed in the emr Allergies: Coded Allergies: codeine (Unverified Allergy, Severe, VOMITING, 03/19/17) MILD REACTION- VOMITING morphine (Unverified Allergy, Severe, PT DENIES, 03/19/17) MILD REACTION aspirin (Unverified Adverse Reaction, Severe, Bleeding, 03/19/17) STOMACH "BLEEDS" PER PT ; SEVERE REACTION nortriptyline (Unverified Adverse Reaction, Severe, Hallucinations, ) vomiting ; INTERMEDIATE REACTION Active Ordered Medications reviewed in the emr Family History adopted Social History quit etoh Physical Exam Vital Signs Vital Signs Date Time Temp Pulse Resp B/P (MAP) Pulse Ox O2 Delivery O2 Flow Rate FiO2 03/19/17 12:49 76 18 108/66 (80) 99 Room Air 03/19/17 10:00 83 16 104/57 (73) 100 Room Air 03/19/17 09:50 97 Room Air 03/19/17 09:45 97 Room Air 03/19/17 09:41 98.8 82 12 102/52 (69) 97 Physical Exam GENERAL: This is a well-nourished, well-developed patient, in no apparent distress. SKIN: No rashes, ecchymoses or lesions. Cool and dry. HEAD: Atraumatic. Normocephalic. No temporal or scalp tenderness. EYES: Pupils equal round and reactive. Extraocular motions intact. No scleral icterus. No injection or drainage. ENT: Nose without bleeding, purulent drainage or septal hematoma. Throat without erythema, tonsillar hypertrophy or exudate. Uvula midline. Airway patent. NECK: Trachea midline. No JVD or lymphadenopathy. Supple, nontender, no meningeal signs. CARDIOVASCULAR: Regular rate and rhythm without murmurs, gallops, or rubs. RESPIRATORY: Clear to auscultation. Breath sounds equal bilaterally. No wheezes , rales, or rhonchi. GASTROINTESTINAL: Abdomen soft, non-tender, nondistended. No hepato-splenomegaly , or palpable masses. No guarding. MUSCULOSKELETAL: Extremities without clubbing, cyanosis, or edema. No joint tenderness, effusion, or edema noted. No calf tenderness. Negative Homans sign bilaterally. NEUROLOGICAL: somnolent. Laboratory Laboratory Tests Test 03/19/17 09:45 03/19/17 09:57 03/19/17 10:09 White Blood Count 4.1 Red Blood Count 3.42 Hemoglobin 10.8 Hematocrit 32.3 Mean Corpuscular Volume 94.6 Mean Corpuscular Hemoglobin 31.5 Mean Corpuscular Hemoglobin Concent 33.4 Red Cell Distribution Width 18.3 Platelet Count 121 Mean Platelet Volume 7.4 Neutrophils (%) (Auto) 60.2 Lymphocytes (%) (Auto) 21.3 Monocytes (%) (Auto) 13.7 Eosinophils (%) (Auto) 3.5 Basophils (%) (Auto) 1.3 Neutrophils # (Auto) 2.4 Lymphocytes # (Auto) 0.9 Monocytes # (Auto) 0.6 Eosinophils # (Auto) 0.1 Basophils # (Auto) 0.1 CBC Comment DIFF FINAL Differential Comment Blood Urea Nitrogen 18 Creatinine 0.83 Random Glucose 74 Total Protein 7.6 Albumin 2.5 Calcium Level 8.2 Alkaline Phosphatase 83 Aspartate Amino Transf (AST/SGOT) 58 Alanine Aminotransferase (ALT/SGPT) 26 Total Bilirubin 3.5 Sodium Level 130 Potassium Level 4.5 Chloride Level 99 Carbon Dioxide Level 22.4 Anion Gap 9 Estimat Glomerular Filtration Rate 72 Lactic Acid Level 1.6 Ammonia 15 Troponin I LESS THAN 0.02 Ethyl Alcohol Level LESS THAN 3 Blood Gas Puncture Site LT RADIAL Blood Gas Patient Temperature 98.6 Blood Gas HCO3 22 Blood Gas Base Excess -1.7 Blood Gas Oxygen Saturation 93 Arterial Blood pH 7.46 Arterial Blood Partial Pressure CO2 31 Arterial Blood Partial Pressure O2 79 Arterial Blood Oxygen Content 11.9 Arterial Blood Carboxyhemoglobin 2.2 Arterial Blood Methemoglobin 1.1 Blood Gas Hemoglobin 9.0 Oxygen Delivery Device ROOM AIR Blood Gas Inspired Oxygen 21 Urine Collection Type CATH Urine Color DILAN Urine Turbidity SLIGHT Urine pH 5.5 Urine Specific [place] 1.029 Urine Protein TRACE Urine Glucose (UA) 250 Urine Ketones TRACE Urine Occult Blood NEG Urine Nitrite POS Urine Bilirubin MOD Urine Leukocyte Esterase NEG Urine WBC 3-5 Urine Squamous Epithelial Cells 0-5 Urine Amorphous Sediment MOD Urine Hyaline Casts 0-2 Urine Fine Granular Casts 0-2 Microscopic Urinalysis Comment CATH-CULT NOT IND Urine Collection Time 1009 Urine Opiates Screen NEG Urine Barbiturates Screen NEG Urine Amphetamines Screen NEG Urine Benzodiazepines Screen NEG Urine Cocaine Screen NEG Urine Cannabinoids Screen NEG Date/Time Source Procedure Growth Status 03/19/17 10:55 Blood Peripheral Aerobic Blood Culture Pending Received 03/19/17 10:55 Blood Peripheral Anaerobic Blood Culture Pending Received Result Diagram: 03/19/17 0945 03/19/17 0945 Imaging Last Impressions Head CT 03/19/17 0941 Signed Impressions: Service Date/Time: Sunday, March 19, 2017 10:28 - CONCLUSION: No acute intracranial abnormality is identified. There is moderate generalized cerebral atrophy. David Child MD Chest X-Ray 03/19/17 0941 Signed Impressions: Service Date/Time: Sunday, March 19, 2017 10:35 - CONCLUSION: No acute cardiopulmonary abnormality is identified. David Child MD Capelvisi VTE Risk Assessment Caprini VTE Risk Assessment: Mod/High Risk (score >= 2) VTE Pharm Contraindication: Coagulopathy,INR elevated Caprini Risk Assessment Model Point Value = 1 Point Value = 2 Point Value = 3 Point Value = 5 Age 41-60 Minor surgery BMI > 25 kg/m2 Swollen legs Varicose veins or History of unexplained or recurrent spontaneous Oral contraceptives or hormone replacement Sepsis (< 1 month) Serious lung disease, including pneumonia (< 1 month) Abnormal pulmonary function Acute myocardial infarction Congestive heart failure (< 1 month) History of inflammatory bowel disease Medical patient at bed rest Age 61-74 Arthroscopic surgery Major open surgery (> 45 min) Laparoscopic surgery (> 45 min) Malignancy Confined to bed (> 72 hours) Immobilizing plaster cast Central venous access Age >= 75 History of VTE Family history of VTE Factor V Leiden Prothrombin [id number] Lupus anticoagulant Anticardiolipin antibodies Elevated serum homocysteine Heparin-induced thrombocytopenia Other congenital or acquired thrombophilia Stroke (< 1 month) Elective arthroplasty Hip, pelvis, or leg fracture Acute spinal cord injury (< 1 month) Prophylaxis Regimen Total Risk Factor Score Risk Level Prophylaxis Regimen 0-1 Low Early ambulation 2 Moderate Order ONE of the following: *Sequential Compression Device (SCD) *Heparin 5000 units SQ BID 3-4 Higher Order ONE of the following medications: *Heparin 5000 units SQ TID *Enoxaparin/Lovenox 40 mg SQ daily (WT < 150 kg, CrCl > 30 mL/min) *Enoxaparin/Lovenox 30 mg SQ daily (WT < 150 kg, CrCl > 10-29 mL/min) *Enoxaparin/Lovenox 30 mg SQ BID (WT < 150 kg, CrCl > 30 mL/min) AND/OR *Sequential Compression Device (SCD) 5 or more Highest Order ONE of the following medications: *Heparin 5000 units SQ TID (Preferred with Epidurals) *Enoxaparin/Lovenox 40 mg SQ daily (WT < 150 kg, CrCl > 30 mL/min) *Enoxaparin/Lovenox 30 mg SQ daily (WT < 150 kg, CrCl > 10-29 mL/min) *Enoxaparin/Lovenox 30 mg SQ BID (WT < 150 kg, CrCl > 30 mL/min) AND *Sequential Compression Device (SCD) Assessment and Plan Problem List: (1) Metabolic encephalopathy ICD Code: G93.41 - Metabolic encephalopathy Plan: may be hepatic in origin, although ammonia is normal but patient is hypoglycemic Rule out sepsis, follow BC, tsh, pt rehydrate with IVF, npo until awake check eeg Code Status full Caryn Christie MD Mar 19, 2017 13:31
--- NOTE | 2017-03-19 16:58 | EKG ---
Date Performed: 03/19/2017 Time Performed: 09:47:35 PTAGE: 51 years EKG: Sinus rhythm NORMAL ECG PREVIOUS TRACING : 02/05/2017 21.27 Compared to prior tracing no significant change DOCTOR: Ulises Guevara Interpretating Date/Time 03/19/2017 16:57:48
[2017-03-19 19:09] LABS: INTERNATIONAL NORMALIZED RATIO 1.3 RATIO; PROTHROMBIN TIME - PATIENT 14.5 SEC (9.8-11.6)
[2017-03-19] MEDS: SODIUM CHLORIDE 0.9% FLUSH 10 ML FLUSH IV FLUSH SCH (19:49)
--- NOTE | 2017-03-19 21:47 | MG ---
cc: AMENA FIERRO MD Lab No: Date: 03/19/17 Age: 51 Sex: F Race: REFERRING PHYSICIAN 8 Dr. Christie. An EEG was obtained on this 51-year-old patient with history of increasing encephalopathy, lethargy. The EEG shows some beta rhythm diffusely. There are some low amplitude theta and alpha rhythms posteriorly. There appears to be some left temporal slower rhythms, fairly consistent throughout the recording. There are some sharp waves but no spike type of discharge. There is probable awake and drowsiness in the recording. Photic stimulation showed possible driving response. The patient is more awake towards the end of the recording along with the photic stimulation. INTERPRETATION This EEG shows some mild abnormality. There is left more than right temporal slowing suggesting a possibility of left hemisphere structural abnormality. There are some sharp waves but no definite epileptiform discharge. Amena Fierro MD [facility]/ /9:08 PM /9:41 PM
[2017-03-19] MEDS ORDERED: SODIUM CHLOR 0.9% 1000 ML INJ 1,000 ML IV ONE (22:00)
[2017-03-19] MEDS: DEXT 5%-NACL 0.9% 1000 ML INJ 1,000 ML IV SCH (22:10)
[2017-03-20] VITALS (10 sets, daily range): BP systolic 85–118; BP diastolic 49–76; PULSE 64–83; RESP 12–20; TEMP 98.3–99.3; O2SAT 92–99
[2017-03-20] MEDS: DEXT 5%-NACL 0.9% 1000 ML INJ 1,000 ML IV SCH ×3 (08:00→20:56)
--- NOTE | 2017-03-20 08:28 | HHI.DCPOC ---
Discharge Care Plan Diagnosis: (1) Metabolic encephalopathy Goals to Promote Your Health * To prevent worsening of your condition and complications * To maintain your health at the optimal level Directions to Meet Your Goals Take your medications as prescribed Follow your dietary instruction Follow activity as directed Keep your appointments as scheduled Take your immunizations and boosters as scheduled If your symptoms worsen call your PCP, if no PCP go to Urgent Care Center or Emergency Room Smoking is Dangerous to Your Health. Avoid second hand smoke Call the 24-hour hour crisis hotline for domestic abuse at Caryn Christie MD Mar 20, 2017 08:28
--- NOTE | 2017-03-20 08:30 | HHI.DS ---
Discharge Summary Admission Date Mar 19, 2017 at 12:13 Discharge Date: Mar 20, 2017 Admitting Diagnosis altered mental status/cirrhosis (1) Metabolic encephalopathy ICD Code: G93.41 - Metabolic encephalopathy Procedures none Brief History - From Admission This is a 51year old female with known alcoholic cirrhosis who came in the ER because her believes she has worsening lethargy and disorientation. She has not been eating or drinking in several days and has been sleeping a lot. There have been no fever and no pain complaint. On exam she is somnolent and groans. CT brain is not remarkable for acte pathology on my review Drug screen neg, ptn admitted for further evaluation CBC/BMP: 03/19/17 0945 03/19/17 1333 Significant Findings Laboratory Tests Test 03/19/17 09:45 03/19/17 09:57 03/19/17 10:09 03/19/17 13:33 Red Blood Count 3.42 MIL/MM3 (4.00-5.30) Hemoglobin 10.8 GM/DL (11.6-15.3) Hematocrit 32.3 % (35.0-46.0) Red Cell Distribution Width 18.3 % (11.6-17.2) Platelet Count 121 TH/MM3 (150-450) Monocytes (%) (Auto) 13.7 % (0.0-8.0) Lymphocytes # (Auto) 0.9 TH/MM3 (1.0-4.8) Albumin 2.5 GM/DL (3.4-5.0) Calcium Level 8.2 MG/DL (8.5-10.1) Aspartate Amino Transf (AST/SGOT) 58 U/L (15-37) Total Bilirubin 3.5 MG/DL (0.2-1.0) Sodium Level 130 MEQ/L (136-145) Estimat Glomerular Filtration Rate 72 ML/MIN (>89) Troponin I LESS THAN 0.02 NG/ML Arterial Blood pH 7.46 (7.380-7.420) Arterial Blood Partial Pressure CO2 31 mmHG (38-42) Arterial Blood Oxygen Content 11.9 Vol % (12.0-20.0) Blood Gas Hemoglobin 9.0 G/DL (12.0-16.0) Urine Color DILAN (YELLW/STRAW) Urine Glucose (UA) 250 mg/dL (NEG) Urine Ketones TRACE mg/dL (NEG) Urine Nitrite POS (NEG) Urine Bilirubin MOD (NEG) Thyroid Stimulating Hormone 3rd Gen 17.600 uIU/ML (0.358-3.740) Salicylates Level LESS THAN 2.0 MG/DL Acetaminophen Level LESS THAN 2.0 MCG/ML Test 03/19/17 18:45 Prothrombin Time 14.5 SEC (9.8-11.6) Total Triiodothyronine 29 NG/DL (60-181) Imaging Last Impressions Head CT 03/19/17940 Signed Impressions: Service Date/Time: Sunday, March 19, 2017 10:28 - CONCLUSION: No acute intracranial abnormality is identified. There is moderate generalized cerebral atrophy. David Child MD Chest X-Ray 03/19/17940 Signed Impressions: Service Date/Time: Sunday, March 19, 2017 10:35 - CONCLUSION: No acute cardiopulmonary abnormality is identified. David Child MD PE at Discharge GENERAL: This is a well-nourished, well-developed patient, in no apparent distress. CARDIOVASCULAR: Regular rate and rhythm without murmurs, gallops, or rubs. RESPIRATORY: Clear to auscultation. Breath sounds equal bilaterally. No wheezes , rales, or rhonchi. GASTROINTESTINAL: Abdomen soft, non-tender, nondistended. Normal active bowel sounds MUSCULOSKELETAL: Extremities without clubbing, cyanosis, or edema. NEURO: Alert & Oriented x4 to person, place, time, situation. Moves all ext x4 Pt update on day of discharge Patient's mental status is greatly resolved back to baseline. Patient sugar has been stable. Care plan and discharge plan discussed with patient and HOTEL ATTENDANT. Hospital Course Patient is a 51-year-old female with known liver failure secondary to alcoholic liver disease. Patient had some somnolence and some hypoglycemia. She was evaluated for metabolic encephalopathy. The symptoms resolved. Patient continued to improve and was discharged home. An EEG was done which showed some mild changes not consistent with seizure Pt Condition on Discharge: Good Discharge Disposition: Discharge Home Discharge Time: <= 30 minutes Discharge Instructions DIET: Follow Instructions for: Low Sodium Diet Activities you can perform: Regular-No Restrictions Follow up Referrals: Gastroenterology - 1 Week with Amy Reed MD Continued Medications: Furosemide (Furosemide) 40 Mg Tab 40 MG PO DAILY, #30 TAB 0 Refills Lactulose Liq (Lactulose Liq) 10 Gm/15 Ml Soln 30 ML PO BID PRN for titrate to 3-4 bm, ML 0 Refills Levothyroxine (Levothyroxine) 50 Mcg Tab 50 MCG PO DAILY for Thyroid, #30 TAB 0 Refills Magnesium Oxide (Magnesium Oxide) 400 Mg Tab 400 MG PO DAILY for Nutritional Supplement for 30 Days, TAB 0 Refills Ondansetron Odt (Ondansetron Odt) 4 Mg Tab 4 MG SL Q6HR PRN for Nausea/Vomiting, #28 TAB 0 Refills Oxycodone (Roxicodone) 5 Mg Tab 5 MG PO Q8HR for Pain Management, #20 TAB 0 Refills USE SPARRINGLY POSSIBLE Pantoprazole (Pantoprazole) 40 Mg Tab 40 MG PO DAILY for Reflux, #30 TAB 0 Refills Potassium Chloride ER (Potassium Chloride ER) 10 Meq Tab 10 MEQ PO DAILY for Electrolyte Replacement, #30 TAB 0 Refills Promethazine (Phenergan) 25 Mg Tablet 25 MG PO Q6H PRN for NAUSEA OR VOMITING, #15 TAB 0 Refills Propranolol (Propranolol) 10 Mg Tab 10 MG PO Q12HR, #60 TAB 0 Refills Rifaximin (Xifaxan) 550 Mg Tab 550 MG PO BID for Liver, #60 TAB Spironolactone (Spironolactone) 50 Mg Tab 50 MG PO BIDPC for fluid retention, #60 TAB 0 Refills Caryn Christie MD Mar 20, 2017 08:30
[2017-03-20] MEDS: SODIUM CHLORIDE 0.9% FLUSH 10 ML FLUSH IV FLUSH SCH ×2 (09:00→21:00)
[2017-03-20] MEDS ORDERED: INFLUENZA VIRUS VACCINE (QUADRIVALENT) 0.5 ML SYR IM ONE (10:00)
[2017-03-20] MEDS: ONDANSETRON HCL 4 MG/2 ML VIAL IV PRN ×2 (10:50→20:56)
[2017-03-20] MEDS ORDERED: PROMETHAZINE HCL 25 MG TAB PO PRN (13:00)
[2017-03-20] MEDS ORDERED: LACTULOSE SYRUP 20 GM/30 ML CUP PO PRN (13:00)
[2017-03-20] MEDS: MAGNESIUM OXIDE 400 MG TAB PO SCH (13:32)
[2017-03-20] MEDS: PROPRANOLOL HCL 10 MG TAB PO SCH ×2 (13:32→21:30)
[2017-03-20] MEDS: RIFAXIMIN 550 MG TAB PO SCH ×2 (13:33→20:56)
[2017-03-20] MEDS ORDERED: LEVOTHYROXINE SODIUM 50 MCG TAB PO ONE (14:00)
[2017-03-20] MEDS: SPIRONOLACTONE 50 MG TAB PO SCH (17:35)
[2017-03-21] VITALS: BP_SYST 100; BP_SYST 150; BP_DIAS 64; BP_DIAS 93; PULSE 69; PULSE 73; RESP 20; TEMP 98.8; O2SAT 100; O2SAT 97
[2017-03-21 04:00] VITALS: BP 96/60; PULSE 76; RESP 20; TEMP 98.3; O2SAT 99
[2017-03-21] MEDS: DEXT 5%-NACL 0.9% 1000 ML INJ 1,000 ML IV SCH (06:18)
[2017-03-21 08:00] VITALS: BP 126/82; PULSE 82; RESP 19; TEMP 97.6; O2SAT 94
[2017-03-21] MEDS: SODIUM CHLORIDE 0.9% FLUSH 10 ML FLUSH IV FLUSH SCH ×2 (09:00→21:00)
[2017-03-21] MEDS: RIFAXIMIN 550 MG TAB PO SCH ×2 (09:02→21:19)
[2017-03-21] MEDS: PROPRANOLOL HCL 10 MG TAB PO SCH ×2 (09:02→21:19)
[2017-03-21] MEDS: MAGNESIUM OXIDE 400 MG TAB PO SCH (09:02)
[2017-03-21] MEDS: SPIRONOLACTONE 50 MG TAB PO SCH ×2 (09:02→17:14)
--- NOTE | 2017-03-21 11:25 | HHI.PR ---
Subjective Remarks Patient seen and evaluated today in follow-up for a metabolic encephalopathy which is resolved. Patient now complaining of increased abdominal discomfort. Discharge held yesterday for the same. Patient nauseated and unable to tolerate food. Blood sugars remain euglycemic. Care plan discussed with patient, nursing and case management as well as spouse at bedside Objective Vitals Vital Signs Date Time Temp Pulse Resp B/P (MAP) Pulse Ox O2 Delivery O2 Flow Rate FiO2 03/21/17 08:00 97.6 82 19 126/82 (97) 94 03/21/17 04:00 98.3 76 20 96/60 (72) 99 03/21/17 00:00 98.8 73 20 100/64 (76) 100 03/20/17 20:00 98.6 83 20 118/76 (90) 98 03/20/17 15:52 98.5 72 20 108/70 (83) 99 I/O 03/20/17 03/20/17 03/20/17 03/21/17 03/21/17 03/21/17 07:00 15:00 23:00 07:00 15:00 23:00 Intake Total 0 ml 1280 ml 2245 ml 1000 ml Output Total 250 ml 300 ml Balance -250 ml 1280 ml 1945 ml 1000 ml Intake Oral 0 ml 480 ml 960 ml IV Total 800 ml 1285 ml 1000 ml Output Urine Total 250 ml 300 ml # Voids 1 4 # Bowel Movements 0 1 0 Result Diagram: 03/19/17 0945 03/19/17 2763 Objective Remarks GENERAL: This is a well-nourished, well-developed patient, in no apparent distress. CARDIOVASCULAR: Regular rate and rhythm without murmurs, gallops, or rubs. RESPIRATORY: Clear to auscultation. Breath sounds equal bilaterally. No wheezes , rales, or rhonchi. GASTROINTESTINAL: Abdomen soft, non-tender, nondistended. Normal active bowel sounds MUSCULOSKELETAL: Extremities without clubbing, cyanosis, or edema. NEURO: Alert & Oriented x4 to person, place, time, situation. Moves all ext x4 Procedures none A/P Problem List: (1) Metabolic encephalopathy ICD Code: G93.41 - Metabolic encephalopathy Plan: resolved tsh abnl rehydrate with IVF, diet advanced but with some nausea EEG without (2) Hypothyroidism Status: Chronic Plan: increase synthroid (decreased las admission) (3) Nausea & vomiting ICD Code: R11.2 - Nausea with vomiting, unspecified Plan: Etiology unclear, antiemetics scheduled Follow-up CT abdomen pelvis done 03/08, ABD xray pending Recent paracentesis 2 weeks ago Caryn Christie MD Mar 21, 2017 11:25
[2017-03-21 12:00] VITALS: BP 131/79; PULSE 77; RESP 18; TEMP 97.9; O2SAT 95
[2017-03-21] MEDS: LEVOTHYROXINE SODIUM 75 MCG TAB PO SCH (12:57)
[2017-03-21] MEDS: PROMETHAZINE HCL 25 MG TAB PO SCH ×3 (12:57→23:57)
--- NOTE | 2017-03-21 12:57 | RADRPT ---
EXAM DATE/TIME: 03/21/2017 12:14 [facility] COMPARISON: ABDOMEN FLAT & UPRIGHT, February 16, 2017, 6:15. INDICATIONS : Nausea MEDICAL HISTORY : Hiatal hernia. Hypothyroidism. Bleeeding ulcers. End stage cirrhosis SURGICAL HISTORY : Cholecystectomy. Umbilical hernia repair, Left hip replacement ENCOUNTER: Initial ACUITY: 3 days PAIN SCORE: 10/10 LOCATION: Abdomen FINDINGS: Scattered air-fluid levels. Air is seen throughout small and large bowel, with mildly distended small bowel loops present over the central abdomen measuring up to 3.8 cm. The degree of bowel distention is slightly decreased from the previous study. Surgical clips right upper quadrant. CONCLUSION: 1. Nonspecific bowel gas pattern suggestive of an ileus as above. Taz Christianson MD on March 21, 2017 at 12:55 Board Certified Radiologist. This report was verified electronically.
--- NOTE | 2017-03-21 15:46 | HHI.FF ---
Face to Face Verification Diagnosis: (1) Alcoholic cirrhosis of liver Home Health Nursing Order: Medical education Signs/symptoms of disease process Medication education-adverse effect I have seen patient Michelle Santamaria on 03/21/17. My clinical findings support the need for the requested home health care services because: Ltd mobility - disease progression I certify that my clinical findings support that this patient is homebound because: Unsteady gait/balance Caryn Christie MD Mar 21, 2017 15:46
[2017-03-21] MEDS ORDERED: COMMODE BEDSIDE1 MI1 (15:49)
[2017-03-21 16:00] VITALS: BP 124/81; PULSE 80; RESP 17; TEMP 97.7; O2SAT 96
[2017-03-21 20:00] VITALS: BP 99/62; PULSE 81; RESP 16; TEMP 98.6; O2SAT 97
[2017-03-22] VITALS: BP 96/72; PULSE 78; RESP 18; TEMP 97.6; O2SAT 98
[2017-03-22] MEDS: LEVOTHYROXINE SODIUM 75 MCG TAB PO SCH (06:21)
[2017-03-22] MEDS: PROMETHAZINE HCL 25 MG TAB PO SCH ×2 (06:21→12:38)
[2017-03-22 06:46] LABS: AUTOMATED NEUTROPHIL # 2.5 TH/MM3 (1.8-7.7); BASOPHIL % 0.6 % (0.0-2.0); EOSINOPHIL # 0.2 TH/MM3 (0-0.4); EOSINOPHIL % 5.3 % (0.0-4.0); HEMATOCRIT 28.7 % (35.0-46.0); LYMPH % 24.8 % (9.0-44.0); LYMPHOCYTE # 1.1 TH/MM3 (1.0-4.8); MEAN CELL VOLUME 95.8 FL (80.0-100.0); MEAN CORPUSCULAR HEMOGLOBIN 32.6 PG (27.0-34.0); MONO % 14.7 % (0.0-8.0); NEUT % 54.6 % (16.0-70.0); PLATELET COUNT 98 TH/MM3 (150-450); RED BLOOD COUNT 2.99 MIL/MM3 (4.00-5.30); RED CELL DISTRIBUTION WIDTH 18.9 % (11.6-17.2); WHITE BLOOD COUNT 4.5 TH/MM3 (4.0-11.0)
[2017-03-22 07:01] LABS: HEMO FLAGS AUTO DIFF
[2017-03-22 07:03] LABS: ALKALINE PHOSPHATASE 83 U/L (45-117); ALT (GPT) 28 U/L (10-53); ANION GAP 8 MEQ/L (5-15); AST (GOT) 56 U/L (15-37); BICARBONATE 20.7 MEQ/L (21.0-32.0); BLOOD UREA NITROGEN 4 MG/DL (7-18); CHLORIDE 110 MEQ/L (98-107); GLOMERULAR FILTRATION RATE 105 ML/MIN (>89); POTASSIUM 3.5 MEQ/L (3.5-5.1); SODIUM (NA) 139 MEQ/L (136-145); TOTAL BILIRUBIN ADULT 2.2 MG/DL (0.2-1.0)
[2017-03-22 08:00] VITALS: BP 96/71; PULSE 74; RESP 20; TEMP 97; O2SAT 97
[2017-03-22 08:11] LABS: PLATELET ESTIMATE SMEAR LOW (NORMAL); PLATELET MORPHOLOGY NORMAL (NORMAL); SCAN/DIFF AUTO DIFF CONFIRMED
[2017-03-22] MEDS: SODIUM CHLORIDE 0.9% FLUSH 10 ML FLUSH IV FLUSH SCH (08:40)
[2017-03-22] MEDS: RIFAXIMIN 550 MG TAB PO SCH (08:40)
[2017-03-22] MEDS: MAGNESIUM OXIDE 400 MG TAB PO SCH (08:40)
[2017-03-22] MEDS: SPIRONOLACTONE 50 MG TAB PO SCH (08:40)
[2017-03-22] MEDS: PROPRANOLOL HCL 10 MG TAB PO SCH (08:41)
[2017-03-22] MEDS: DEXT 5%-NACL 0.9% 1000 ML INJ 1,000 ML IV SCH ×2 (08:59)
[2017-03-22 12:00] VITALS: BP 96/65; PULSE 75; RESP 20; TEMP 97.1; O2SAT 97
[2017-03-22] MEDS ORDERED: PROM25TA10 PO (12:06)
--- NOTE | 2017-03-22 12:06 | HHI.PR ---
Subjective Remarks Patient seen and evaluated today in follow-up for weakness. Overall stronger with physical therapy. Patient unable to get home healthcare insurance. We have attempted to arrange for outpatient therapy. Patient tolerating her diet and nausea is resolved Objective Vitals Vital Signs Date Time Temp Pulse Resp B/P (MAP) Pulse Ox O2 Delivery O2 Flow Rate FiO2 03/22/17 08:00 97.0 74 20 96/71 (79) 97 03/22/17 00:00 97.6 78 18 96/72 (80) 98 03/21/17 20:00 98.6 81 16 99/62 (74) 97 03/21/17 16:00 97.7 80 17 124/81 (95) 96 I/O 03/21/17 03/21/17 03/21/17 03/22/17 03/22/17 03/22/17 07:00 15:00 23:00 07:00 15:00 23:00 Intake Total 1000 ml 787 ml Balance 1000 ml 787 ml IV Total 1000 ml 787 ml # Voids 4 Result Diagram: 03/22/17 0500 03/22/17 0500 Objective Remarks GENERAL: This is a well-nourished, well-developed patient, in no apparent distress. CARDIOVASCULAR: Regular rate and rhythm without murmurs, gallops, or rubs. RESPIRATORY: Clear to auscultation. Breath sounds equal bilaterally. No wheezes , rales, or rhonchi. GASTROINTESTINAL: Abdomen soft, non-tender, nondistended. Normal active bowel sounds MUSCULOSKELETAL: Extremities without clubbing, cyanosis, or edema. NEURO: Alert & Oriented x4 to person, place, time, situation. Moves all ext x4 Procedures none A/P Problem List: (1) Metabolic encephalopathy ICD Code: G93.41 - Metabolic encephalopathy Plan: resolved (2) Hypothyroidism Status: Chronic Plan: increase synthroid (decreased last admission) (3) Nausea & vomiting ICD Code: R11.2 - Nausea with vomiting, unspecified Plan: Ileus resolved Continue Discharge Planning Discharge home Activity unrestricted Diet 2 g Caryn Spain MD Mar 22, 2017 12:06
== END 2017-03-22 13:52 | disposition home or self-care (01) ==
LOC: PHED 09:36 → INTOOBSV 12:13 → PHEDA 12:13 → PHICU 14:55 → PH3A 03-20 15:00
PROVIDERS: ADMIT Hospitalist; ATTEND Hospitalist
DX: G93.41 Metabolic encephalopathy (principal); K70.30 Alcoholic cirrhosis of liver without ascites; K70.40 Alcoholic hepatic failure without coma; R11.2 Nausea with vomiting, unspecified; E03.9 Hypothyroidism, unspecified; J45.909 Unspecified asthma, uncomplicated; R94.01 Abnormal electroencephalogram [EEG]; Z23 Encounter for immunization
CPT/HCPCS: 36600; 51702; 70450; 71010; 74020; 76937; 80053; 80307; 81001; 82140; 82805; 82947; 82948; 83605; 84436; 84443; 84480; 84484; 85025; 85610; 87040; 90471; 90686; 93005; 95819; 96361; 96374; 96375; 96376; 97110; 97116; 97163; 99285; G0378; G8987; G8988; J2405; J7030; J7042; Q0169; G0008; Q2038

== ENCOUNTER 2017-03-23 14:41 | Observation (INO) | payer MEDICAID ==
[~2017-03-23] VITALS: Ht 162.6 cm; Wt 63.8 kg
[~2017-03-23 14:41] MED LIST changes: +COMMODE BEDSIDE1 MI1
[2017-03-23 14:44] VITALS: BP 114/70; PULSE 82; RESP 16; TEMP 99.3; O2SAT 100
[2017-03-23] MEDS ORDERED: SODIUM CHLOR 0.9% 1000 ML INJ 1,000 ML IV ONE (15:07)
[2017-03-23 15:10] VITALS: O2SAT 98
[2017-03-23] MEDS ORDERED: SODIUM CHLORIDE 0.9% FLUSH 10 ML FLUSH IVF PRN (15:15)
--- NOTE | 2017-03-23 15:21 | PD ---
HPI Chief Complaint: Syncope/Near-Syncope Time Seen by Provider: 14:54 Travel History International Travel<30 days: No Contact w/Intl Traveler<30days: No Traveled to known affect area: No History of Present Illness HPI Patient is a 51 year old female who returns to the ER with her for treatment of metabolic encephalopathy. Patient is a well-known patient to her hospital, she has history of alcohol cirrhosis with chronic metabolic encephalopathy. Patient presented initially to the emergency room on March 19, 2017 for worsening lethargy as well as disorientation. After prolonged stay , patient was discharged to home with outpatient follow-up. Patient's reports that since her discharge home, patient has fallen about 5 times. Reports that she continues to be lethargic and disoriented. Reports that he cannot care for her at home and reports that she ultimately needs middle or intermediate school principal care. Patient disoriented in the ER, cannot provide hpi. PFSH Past Medical History Hx Anticoagulant Therapy: No Arthritis: Yes Asthma: Yes Autoimmune Disease: No Anxiety: Yes Depression: Yes Heart Rhythm Problems: No Cancer: No Cardiovascular Problems: No High Cholesterol: No Chemotherapy: No Chest Pain: No Congestive Heart Failure: No Cirrhosis: Yes (End stage ) COPD: No Cerebrovascular Accident: No Diabetes: No Diminished Hearing: No Endocrine: Yes Gastrointestinal Disorders: Yes (Upper GIB, varices, bleeding ulcers ) GERD: No Genitourinary: No Headaches: No Hepatitis: Yes (Alcoholic ) Hiatal Hernia: Yes Heparin Induced Thrombocytopen: No Hypertension: No Immune Disorder: No Implanted Vascular Access Dvce: No Kidney Stones: No Medical other: Yes (Thrombocytopenia ) Musculoskeletal: No Neurologic: No Psychiatric: Yes Reproductive: No Respiratory: No Immunizations Current: Yes Migraines: No Radiation Therapy: No Renal Failure: No Seizures: No Sickle Cell Disease: No Sleep Apnea: No Thyroid Disease: Yes (Hypothyroidism) Ulcer: No Tetanus Vaccination: > 5 Years Influenza Vaccination: Yes ?: Not Menopausal: Yes Past Surgical History Abdominal Surgery: Yes (Umb. hernia repair ) AICD: No Body Medical Devices: NONE Cardiac Surgery: No Cholecystectomy: Yes (2006) Ear Surgery: No Endocrine Surgery: No Eye Surgery: No Genitourinary Surgery: No Gynecologic Surgery: No Hysterectomy: No Insulin Pump: No Joint Replacement: Yes (Lt. hip) Neurologic Surgery: No Oral Surgery: No Pacemaker: No Thoracic Surgery: No Other Surgery: Yes (Cholecystectomy) Social History Alcohol Use: No (H/O alcoholism ) Tobacco Use: No Substance Use: No Allergies-Medications (Allergen,Severity, Reaction): Coded Allergies: aspirin (Unverified Adverse Reaction, Severe, Bleeding, 03/23/17) codeine (Unverified Adverse Reaction, Severe, Vomiting, 03/23/17) morphine (Unverified Adverse Reaction, Severe, 03/23/17) Patient's states someone overdosed her on XR morphine nortriptyline (Unverified Adverse Reaction, Severe, Hallucinations, vomiting , 03/23/17) Reported Meds & Prescriptions Reported Meds & Active Scripts Active Phenergan (Promethazine HCl) 25 Mg Tablet 25 Mg PO Q6H PRN Spironolactone 50 Mg Tab 50 Mg PO BIDPC Ondansetron Odt 4 Mg Tab 4 Mg SL Q6HR PRN Roxicodone (Oxycodone HCl) 5 Mg Tab 5 Mg PO Q8HR USE SPARRINGLY POSSIBLE Potassium Chloride ER (Potassium Chloride) 10 Meq Tab 10 Meq PO DAILY Magnesium Oxide 400 Mg Tab 400 Mg PO DAILY 30 Days Levothyroxine (Levothyroxine Sodium) 50 Mcg Tab 50 Mcg PO DAILY Xifaxan (Rifaximin) 550 Mg Tab 550 Mg PO BID Reported Propranolol (Propranolol HCl) 10 Mg Tab 10 Mg PO Q12HR Lactulose Liq (Lactulose) 10 Gm/15 Ml Soln 30 Ml PO BID PRN Pantoprazole (Pantoprazole Sodium) 40 Mg Tab 40 Mg PO DAILY Furosemide 40 Mg Tab 40 Mg PO DAILY Review of Systems ROS Limitations: Altered Mental Status General / Constitutional: No: Fever Eyes: No: Visual changes HENT: No: Headaches Cardiovascular: No: Chest Pain or Discomfort Respiratory: No: Shortness of Breath Gastrointestinal: No: Abdominal Pain Genitourinary: No: Dysuria Musculoskeletal: No: Pain Skin: No Rash Neurologic: No: Weakness Psychiatric: No: Depression Endocrine: No: Polydipsia Hematologic/Lymphatic: No: Easy Bruising Physical Exam Narrative GENERAL: nad SKIN: Focused skin assessment warm/dry. HEAD: Atraumatic. Normocephalic. EYES: Pupils equal and round. positive scleral icterus. No injection or drainage. ENT: No nasal bleeding or discharge. Mucous membranes pink and moist. NECK: Trachea midline. No JVD. CARDIOVASCULAR: Regular rate and rhythm. No murmur appreciated. RESPIRATORY: No accessory muscle use. Clear to auscultation. Breath sounds equal bilaterally. GASTROINTESTINAL: Abdomen soft, non-tender, nondistended. Hepatic and splenic margins not palpable. MUSCULOSKELETAL: No obvious deformities. No clubbing. No cyanosis. No edema. NEUROLOGICAL: Awake and alert. PSYCHIATRIC: Flat mood and affect Data Data Last Documented VS Vital Signs Date Time Temp Pulse Resp B/P (MAP) Pulse Ox O2 Delivery O2 Flow Rate FiO2 03/23/17 15:10 98 Room Air 03/23/17 14:44 99.3 82 16 114/70 (85) Orders Orders Electrocardiogram (03/23/17 15:07) Complete Blood Count With Diff (03/23/17 15:07) Comprehensive Metabolic Panel (03/23/17 15:07) Magnesium (Mg) (03/23/17 15:07) Ckmb (Isoenzyme) Profile (03/23/17 15:07) Troponin I (03/23/17 15:07) Act Partial Throm Time (Ptt) (03/23/17 15:07) Prothrombin Time / Inr (Pt) (03/23/17 15:07) Chest, Single Ap (03/23/17 15:07) Ct Brain W/O Iv Contrast(Rout) (03/23/17 15:07) Ecg Monitoring (03/23/17 15:07) Iv Access Insert/Monitor (03/23/17 15:07) Oximetry (03/23/17 15:07) Sodium Chloride 0.9% Flush (Ns Flush) (03/23/17 15:15) Sodium Chlor 0.9% 1000 Ml Inj (Ns 1000 M (03/23/17 15:07) Ammonia (03/23/17 15:07) Hospice Consult (03/23/17 15:18) (Hub Use Only)Inp Phy Cons/Ref (03/23/17 ) (Hub Use Only)Inp Phy Cons/Ref (03/23/17 ) MDM Medical Decision Making Medical Screen Exam Complete: Yes Emergency Medical Condition: Yes Medical Record Reviewed: Yes Interpretation(s) Vital Signs Date Time Temp Pulse Resp B/P (MAP) Pulse Ox O2 Delivery O2 Flow Rate FiO2 03/23/17 14:44 99.3 82 16 114/70 (85) 100 Differential Diagnosis Differential includes liver cirrhosis, metabolic encephalopathy, electrolyte abnormality, ICH Narrative Course Patient was placed on a shelter monitor upon arrival to the emergency room. CT of the head, CBC, CMP, ammonia level ordered. Discussed with patient's possibilities of hospice placement, patient now agreeable to talking to hospice. Hospice consult ordered. garage manager is currently working on possible placement for patient. Patient signed out to Dr. Hair at change of shift. Denise Peterson DO Mar 23, 2017 15:21
--- NOTE | 2017-03-23 15:39 | RADRPT ---
EXAM DATE/TIME: 03/23/2017 15:17 [facility] COMPARISON: CT BRAIN W/O CONTRAST, March 19, 2017, 10:28. INDICATIONS : Syncope. RADIATION DOSE: 58.32 CTDIvol (mGy) MEDICAL HISTORY : Cirrhosis. Hepatitis. SURGICAL HISTORY : Cholecystectomy. ENCOUNTER: Initial ACUITY: 1 day PAIN SCALE: 0/10 LOCATION: cranial TECHNIQUE: Multiple contiguous axial images were obtained of the head. Using automated exposure control and adj ustment of the mA and/or kV according to patient size, radiation dose was kept as low as reasonably a chievable to obtain optimal diagnostic quality images. DICOM format image data is available electro nically for review and comparison. FINDINGS: There is marked central and cortical atrophy with dilatation of ventricular and sulcal spaces. There is no parenchymal hemorrhage, acute infarction or mass lesion identified. There are no extra-axial fluid collections appreciated. Minimal basalganglia calcifications are noted. The posterior fossa i s unremarkable with midline fourth ventricle. The portion of the orbits and paranasal sinuses visual ized are unremarkable. CONCLUSION: Atrophy otherwise negative. Kaz Anderson MD FACR on March 23, 2017 at 15:37 Board Certified Radiologist. This report was verified electronically.
[2017-03-23 15:57] LABS: AUTOMATED NEUTROPHIL # 2.3 TH/MM3 (1.8-7.7); BASOPHIL % 1.2 % (0.0-2.0); EOSINOPHIL # 0.2 TH/MM3 (0-0.4); EOSINOPHIL % 4.8 % (0.0-4.0); HEMATOCRIT 28.9 % (35.0-46.0); HEMO FLAGS DIFF FINAL; LYMPH % 22.6 % (9.0-44.0); LYMPHOCYTE # 0.9 TH/MM3 (1.0-4.8); MEAN CELL VOLUME 96.4 FL (80.0-100.0); MEAN CORPUSCULAR HEMOGLOBIN 32.6 PG (27.0-34.0); MEAN CORPUSCULAR HGB CONC 33.8 % (32.0-36.0); MONO % 15.7 % (0.0-8.0); NEUT % 55.7 % (16.0-70.0); PLATELET COUNT 180 TH/MM3 (150-450); RED CELL DISTRIBUTION WIDTH 19.8 % (11.6-17.2)
--- NOTE | 2017-03-23 15:58 | RADRPT ---
EXAM DATE/TIME: 03/23/2017 15:15 [facility] COMPARISON: CHEST SINGLE AP, March 19, 2017, 10:35. INDICATIONS : Syncopal episode today MEDICAL HISTORY : None. SURGICAL HISTORY : None. ENCOUNTER: Initial ACUITY: 1 day PAIN SCORE: Non-responsive. LOCATION: Bilateral chest FINDINGS: Minimal nonspecific linear parenchymal opacity left base. Right lung is clear. The he art and pulmonary vascularity are normal. CONCLUSION: Minimal parenchymal changes left base, nonspecific. Kaz Anderson MD FACR on March 23, 2017 at 15:36 Board Certified Radiologist. This report was verified electronically.
[2017-03-23 16:30] VITALS: BP 102/67; PULSE 73; RESP 14; O2SAT 97
[2017-03-23 16:32] LABS: APTT (PATIENT) 29.7 SEC (24.3-30.1); INTERNATIONAL NORMALIZED RATIO 1.5 RATIO; PROTHROMBIN TIME - PATIENT 17.3 SEC (9.8-11.6)
[2017-03-23 16:39] LABS: ALKALINE PHOSPHATASE 122 U/L (45-117); ANION GAP 5 MEQ/L (5-15); AST (GOT) 165 U/L (15-37); BICARBONATE 24.4 MEQ/L (21.0-32.0); BLOOD UREA NITROGEN 8 MG/DL (7-18); CHLORIDE 103 MEQ/L (98-107); CREATINE KINASE 251 U/L (26-192); GLOMERULAR FILTRATION RATE 80 ML/MIN (>89); MAGNESIUM 1.7 MG/DL (1.5-2.5); SODIUM (NA) 132 MEQ/L (136-145); TOTAL BILIRUBIN ADULT 1.9 MG/DL (0.2-1.0)
[2017-03-23] MEDS ORDERED: LACTULOSE SYRUP 20 GM/30 ML CUP PO ONE (16:45)
[2017-03-23 17:20] LABS: POTASSIUM 3.5 MEQ/L (3.5-5.1)
[2017-03-23 17:25] LABS: ALT (GPT) 26 U/L (10-53)
--- NOTE | 2017-03-23 18:21 | PD ---
Physical Exam Date Seen by Provider: Mar 23, 2017 Time Seen by Provider: 18:20 Narrative This 51-year-old female had presented with lethargy and frequent falls. She was discharged from the hospital on 926 after staying for several days for metabolic encephalopathy. Her said that she had fallen whenever she tried to stand up area he said she did fallen 5 times since released. She has been extremely lethargic. He has not had any alcohol. Apparently her problems are largely related to a history of heavy drinking in the past. She was seen initially by Dr. Peterson who ordered lab work. The ammonia level was initially reported at 117. She was given lactulose. It was thought that possibly this may be an appropriate disposition for the patient. This is a fairly discussed with the and initially seemed agreeable with after the hospice nurses, on her evaluation he says that he adamantly refuses to take her to hospice. She is not stable for discharge. She was extremely lethargic initially. She has had somewhat of a wavering mental status. CT scan of the brain has been read as negative. Data Data Last Documented VS Vital Signs Date Time Temp Pulse Resp B/P (MAP) Pulse Ox O2 Delivery O2 Flow Rate FiO2 03/23/17 16:30 73 14 102/67 (79) 97 Room Air 03/23/17 14:44 99.3 Orders Orders Electrocardiogram (03/23/17 15:07) Complete Blood Count With Diff (03/23/17 15:07) Comprehensive Metabolic Panel (03/23/17 15:07) Magnesium (Mg) (03/23/17 15:07) Ckmb (Isoenzyme) Profile (03/23/17 15:07) Troponin I (03/23/17 15:07) Act Partial Throm Time (Ptt) (03/23/17 15:07) Prothrombin Time / Inr (Pt) (03/23/17 15:07) Chest, Single Ap (03/23/17 15:07) Ct Brain W/O Iv Contrast(Rout) (03/23/17 15:07) Ecg Monitoring (03/23/17 15:07) Iv Access Insert/Monitor (03/23/17 15:07) Oximetry (03/23/17 15:07) Sodium Chloride 0.9% Flush (Ns Flush) (03/23/17 15:15) Sodium Chlor 0.9% 1000 Ml Inj (Ns 1000 M (03/23/17 15:07) Ammonia (03/23/17 15:07) Hospice Consult (03/23/17 15:18) (Hub Use Only)Inp Phy Cons/Ref (03/23/17 ) (Hub Use Only)Inp Phy Cons/Ref (03/23/17 ) Lactulose Liq (Lactulose Liq) (03/23/17 16:45) CKMB (03/23/17 17:00) CKMB% (03/23/17 17:00) Admit Order (Ed Use Only) (03/23/17 18:29) Labs Laboratory Tests Test 03/23/17 15:40 03/23/17 17:00 White Blood Count 4.0 TH/MM3 Red Blood Count 3.00 MIL/MM3 Hemoglobin 9.8 GM/DL Hematocrit 28.9 % Mean Corpuscular Volume 96.4 FL Mean Corpuscular Hemoglobin 32.6 PG Mean Corpuscular Hemoglobin Concent 33.8 % Red Cell Distribution Width 19.8 % Platelet Count 180 TH/MM3 Mean Platelet Volume 8.2 FL Neutrophils (%) (Auto) 55.7 % Lymphocytes (%) (Auto) 22.6 % Monocytes (%) (Auto) 15.7 % Eosinophils (%) (Auto) 4.8 % Basophils (%) (Auto) 1.2 % Neutrophils # (Auto) 2.3 TH/MM3 Lymphocytes # (Auto) 0.9 TH/MM3 Monocytes # (Auto) 0.6 TH/MM3 Eosinophils # (Auto) 0.2 TH/MM3 Basophils # (Auto) 0.0 TH/MM3 CBC Comment DIFF FINAL Differential Comment Prothrombin Time 17.3 SEC Prothromb Time International Ratio 1.5 RATIO Activated Partial Thromboplast Time 29.7 SEC Ammonia LESS THAN 10 MCMOL/L Blood Urea Nitrogen 8 MG/DL Creatinine 0.76 MG/DL Random Glucose 102 MG/DL Total Protein 7.2 GM/DL Albumin 2.1 GM/DL Calcium Level 7.9 MG/DL Magnesium Level 1.7 MG/DL Alkaline Phosphatase 122 U/L Aspartate Amino Transf (AST/SGOT) 165 U/L Alanine Aminotransferase (ALT/SGPT) 26 U/L Total Bilirubin 1.9 MG/DL Sodium Level 132 MEQ/L Potassium Level 3.5 MEQ/L Chloride Level 103 MEQ/L Carbon Dioxide Level 24.4 MEQ/L Anion Gap 5 MEQ/L Estimat Glomerular Filtration Rate 80 ML/MIN Total Creatine Kinase 251 U/L Creatine Kinase MB 1.1 NG/ML Creatine Kinase MB % 0.4 % Troponin I LESS THAN 0.02 NG/ML [facility] Medical Record Reviewed: Yes Supervised Visit with SHALA: Yes Differential Diagnosis Differential includes subdural, hepatic encephalopathy, encephalopathy Narrative Course CT brain is negative. Patient's initially agreed to hospice evaluation however he later refused to have her go to hospice. She is nontoxic stable for discharge and will be admitted to the hospital Diagnosis Primary Impression: Altered mental status Flaco Torres MD Mar 23, 2017 18:21
[2017-03-23 18:22] LABS: CKMB 1.1 NG/ML (0.5-3.6)
[2017-03-23 18:40] VITALS: BP 99/65; PULSE 73; RESP 14; O2SAT 99
[2017-03-23] MEDS ORDERED: LACTULOSE SYRUP 20 GM/30 ML CUP PO PRN ×2 (18:45)
[2017-03-23] MEDS ORDERED: SODIUM CHLORIDE 0.9% FLUSH 10 ML FLUSH IV FLUSH PRN (18:45)
[2017-03-23] MEDS ORDERED: NALOXONE HCL 0.4 MG/ML AMP IV PUSH PRN (18:45)
[2017-03-23] MEDS ORDERED: BISACODYL 10 MG SUPP RECTAL PRN (18:45)
[2017-03-23] MEDS ORDERED: SENNOSIDES 8.6 MG TAB PO PRN (18:45)
[2017-03-23] MEDS ORDERED: PROMETHAZINE HCL 25 MG TAB PO PRN (18:45)
[2017-03-23] MEDS ORDERED: ONDANSETRON ODT 4 MG TAB SL PRN (18:45)
[2017-03-23] MEDS ORDERED: ONDANSETRON HCL 4 MG/2 ML VIAL IVP PRN (19:00)
[2017-03-23 20:00] VITALS: BP 96/59; PULSE 63; RESP 18; TEMP 97.5; O2SAT 94
[2017-03-23] MEDS ORDERED: MAGNESIUM HYDROXIDE SUSP 30 ML CUP PO PRN (20:00)
[2017-03-23] MEDS ORDERED: ACETAMINOPHEN 325 MG TAB PO PRN (20:00)
[2017-03-23 22:21] VITALS: O2SAT 99
[2017-03-23] MEDS: ENOXAPARIN SODIUM 40 MG/0.4 ML SYRINGE SQ SCH (23:14)
[2017-03-23] MEDS: RIFAXIMIN 550 MG TAB PO SCH (23:15)
[2017-03-23] MEDS: DOCUSATE SODIUM 50 MG/SENNA 8.6 MG TAB PO SCH (23:15)
[2017-03-23] MEDS: SODIUM CHLORIDE 0.9% FLUSH 10 ML FLUSH IV FLUSH SCH (23:15)
[2017-03-23] MEDS: PROPRANOLOL HCL 10 MG TAB PO SCH (23:16)
[2017-03-24] VITALS (8 sets, daily range): BP systolic 81–98; BP diastolic 54–74; PULSE 64–85; RESP 14–25; TEMP 95.7–99.5; O2SAT 95–100
[2017-03-24] MEDS: LEVOTHYROXINE SODIUM 50 MCG TAB PO SCH (05:49)
--- NOTE | 2017-03-24 07:55 | EKG ---
Date Performed: 03/23/2017 Time Performed: 15:48:35 PTAGE: 51 years EKG: Sinus rhythm NORMAL ECG Since PREVIOUS TRACING , no significant change noted PREVIOUS TRACIN03/19/2017 09.47 DOCTOR: Tasha Luque Interpretating Date/Time 03/24/2017 07:53:55
[2017-03-24 08:41] LABS: POTASSIUM 3.5 MEQ/L (3.5-5.1)
[2017-03-24 08:44] LABS: AUTOMATED NEUTROPHIL # 1.7 TH/MM3 (1.8-7.7); BASOPHIL # 0.1 TH/MM3 (0-0.2); BASOPHIL % 1.9 % (0.0-2.0); EOSINOPHIL # 0.2 TH/MM3 (0-0.4); LYMPH % 23.9 % (9.0-44.0); LYMPHOCYTE # 0.8 TH/MM3 (1.0-4.8); MEAN CORPUSCULAR HEMOGLOBIN 31.4 PG (27.0-34.0); MEAN CORPUSCULAR HGB CONC 32.7 % (32.0-36.0); NEUT % 55.2 % (16.0-70.0); RED BLOOD COUNT 3.02 MIL/MM3 (4.00-5.30); RED CELL DISTRIBUTION WIDTH 19.4 % (11.6-17.2); WHITE BLOOD COUNT 3.2 TH/MM3 (4.0-11.0)
[2017-03-24 08:45] LABS: BICARBONATE 22.3 MEQ/L (21.0-32.0)
[2017-03-24 08:55] LABS: HEMO FLAGS AUTO DIFF; PLATELET COUNT 100 TH/MM3 (150-450)
[2017-03-24] MEDS: PROPRANOLOL HCL 10 MG TAB PO SCH ×2 (09:00→21:19)
[2017-03-24] MEDS: FUROSEMIDE 40 MG TAB PO SCH (09:00)
[2017-03-24] MEDS: SPIRONOLACTONE 50 MG TAB PO SCH ×2 (09:00→17:53)
[2017-03-24 09:14] LABS: PLATELET ESTIMATE SMEAR LOW (NORMAL); PLATELET MORPHOLOGY NORMAL (NORMAL); SCAN/DIFF AUTO DIFF CONFIRMED
[2017-03-24] MEDS ORDERED: SODIUM CHLOR 0.9% 1000 ML INJ 1,000 ML IV SCH (09:15)
[2017-03-24] MEDS ORDERED: SODIUM CHLOR 0.9% 1000 ML INJ 1,000 ML IV ONE (09:15)
[2017-03-24] MEDS: PANTOPRAZOLE SOD 40 MG DELAYED RELEASE TAB PO SCH (10:21)
[2017-03-24] MEDS: MAGNESIUM OXIDE 400 MG TAB PO SCH (10:21)
[2017-03-24] MEDS: DOCUSATE SODIUM 50 MG/SENNA 8.6 MG TAB PO SCH ×2 (10:21→21:16)
[2017-03-24] MEDS: RIFAXIMIN 550 MG TAB PO SCH ×2 (10:21→21:18)
[2017-03-24] MEDS: POTASSIUM CHLORIDE 10 MEQ CONTROLLED RELEASE TAB PO SCH (10:21)
[2017-03-24] MEDS: SODIUM CHLORIDE 0.9% FLUSH 10 ML FLUSH IV FLUSH SCH ×2 (10:22→21:16)
--- NOTE | 2017-03-24 15:11 | HHI.HP ---
HPI Service [facility] Primary Care Physician David Vo MD Admission Diagnosis ALTERED MENTAL STATUS Diagnoses: (1) Fall at home Diagnosis: Principal (2) Alcoholic cirrhosis of liver Diagnosis: Principal Chief Complaint: [place] home Travel History International Travel<30 Days: No Contact w/Intl Traveler <30 Da: No Traveled to Known Affected Are: No History of Present Illness Written by Nick Vargas, acting as scribe for Dr. Connelly on 03/24/17 at 15: 00. 51-year-old female with rather unfortunate situation with end-stage liver disease, from alcohol cirrhosis who was brought back to the hospital because of recurrent falls at home. Patient was just recently hospitalized for hepatic encephalopathy from 03/19/17 until 03/22/17. Patient went home and it was indicated by her significant other that she had fallen 5 times since she had gotten home. Because of that reason he brought her back to the hospital for evaluation. Patient had workup done emergency department with mild abnormalities to include mild hyponatremia, CT scans, chest x-rays were performed which did not indicate any acute abnormality. The patient significant other is very worried that he cannot take care of her home. He is trying to get her into a nursing home facility, however due to insurance reasons he has been unsuccessful. He indicates that the patient is trying to qualify for liver transplant, possible get TIPS procedure in order to manage her cirrhosis better. She had paracentesis done approximately 3 weeks ago with 5 L removal. She is followed by Dr Reed on a regular basis. Patient states that she is doing well this time her encephalopathy has significant improved since her last admission. She is able to form full sentences. Is recommended by the ER physician that the patient be observed in the hospital for further recommendations. Review of Systems Neurologic: COMPLAINS OF: Abnormal gait, Poor Balance Except as stated in HPI: all other systems reviewed are Neg Past Family Social History Past Medical History Cirrhosis History of alcohol abuse Recurrent ascites Duodenal AVMs History of esophageal varices Hepatic encephalopathy Portal hypertension Past Surgical History EGD Colonoscopy Cholecystectomy Left hip replacement Umbilical hernia repair Reported Medications Reported Meds & Active Scripts Active Phenergan (Promethazine HCl) 25 Mg Tablet 25 Mg PO Q6H PRN Spironolactone 50 Mg Tab 50 Mg PO BIDPC Ondansetron Odt 4 Mg Tab 4 Mg SL Q6HR PRN Roxicodone (Oxycodone HCl) 5 Mg Tab 5 Mg PO Q8HR USE SPARRINGLY POSSIBLE Potassium Chloride ER (Potassium Chloride) 10 Meq Tab 10 Meq PO DAILY Magnesium Oxide 400 Mg Tab 400 Mg PO DAILY 30 Days Levothyroxine (Levothyroxine Sodium) 50 Mcg Tab 50 Mcg PO DAILY Xifaxan (Rifaximin) 550 Mg Tab 550 Mg PO BID Reported Propranolol (Propranolol HCl) 10 Mg Tab 10 Mg PO Q12HR Lactulose Liq (Lactulose) 10 Gm/15 Ml Soln 30 Ml PO BID PRN Pantoprazole (Pantoprazole Sodium) 40 Mg Tab 40 Mg PO DAILY Furosemide 40 Mg Tab 40 Mg PO DAILY Allergies: Coded Allergies: aspirin (Unverified Adverse Reaction, Severe, Bleeding, 03/23/17) codeine (Unverified Adverse Reaction, Severe, Vomiting, 03/23/17) morphine (Unverified Adverse Reaction, Severe, 03/23/17) Patient's states someone overdosed her on XR morphine nortriptyline (Unverified Adverse Reaction, Severe, Hallucinations, vomiting , 03/23/17) Family History Patient is adopted, does not know specifics about her family history but she indicates that she believes her father and grandfather had alcohol abuse Social History Patient denies any tobacco or illicit drugs. She quit using alcohol 5 years ago , prior to that she used to drink a bottle of vodka daily Physical Exam Vital Signs Vital Signs Date Time Temp Pulse Resp B/P (MAP) Pulse Ox O2 Delivery O2 Flow Rate FiO2 03/24/17 08:00 95.7 64 18 81/55 (64) 95 03/24/17 04:00 97.9 76 20 95/66 (76) 95 03/24/17 00:00 97.5 78 20 84/57 (66) 99 03/23/17 22:21 99 21 03/23/17 20:00 97.5 63 18 96/59 (71) 94 03/23/17 18:40 73 14 99/65 (76) 99 Room Air 03/23/17 16:30 73 14 102/67 (79) 97 Room Air 9/27/17 15:10 98 Room Air Physical Exam GENERAL: Well-developed, well-nourished, in no acute distress. alert and orientated HEENT: Head is normocephalic without any lesions or masses noted. Facial features are symmetric. Eyes: Pupils equal round reactive to light. Extraocular muscles are intact. Conjunctivae were clear. Oropharyngeal: Pharynx without any erythema edema. Tongue is midline without deviation. Buccal mucosa is moist without any masses or lesions NECK: Supple without any masses. Trachea midline no deviation. No JVD, no bruits are appreciated CARDIAC: Regular rhythm, regular rate. S1/S2 are heard. No murmurs gallops or rubs. LUNGS: Clear to auscultation bilaterally. No wheeze, rhonchi or rales. No use of accessory muscles on inspiration or expiration. ABDOMEN: Soft, nontender. Mild distention, tympanic to percussion. Bowel sounds heard in all 4 quadrants. No organomegaly or masses. Negative rebound, negative guarding EXTREMITIES: No edema, pulses are equal bilaterally. No cyanosis or clubbing NEUROLOGY: Mood and affect appear appropriate. Cranial nerves II through XII grossly intact. Muscle strength 5/5 in upper and lower extremities bilaterally. Deep tendon reflexes are 2+ in upper and lower extremities bilaterally. Laboratory Laboratory Tests Test 03/23/17 15:40 03/23/17 17:00 03/24/17 07:25 White Blood Count 4.0 3.2 Red Blood Count 3.00 3.02 Hemoglobin 9.8 9.5 Hematocrit 28.9 29.0 Mean Corpuscular Volume 96.4 96.0 Mean Corpuscular Hemoglobin 32.6 31.4 Mean Corpuscular Hemoglobin Concent 33.8 32.7 Red Cell Distribution Width 19.8 19.4 Platelet Count 180 100 Mean Platelet Volume 8.2 7.7 Neutrophils (%) (Auto) 55.7 55.2 Lymphocytes (%) (Auto) 22.6 23.9 Monocytes (%) (Auto) 15.7 14.0 Eosinophils (%) (Auto) 4.8 5.0 Basophils (%) (Auto) 1.2 1.9 Neutrophils # (Auto) 2.3 1.7 Lymphocytes # (Auto) 0.9 0.8 Monocytes # (Auto) 0.6 0.4 Eosinophils # (Auto) 0.2 0.2 Basophils # (Auto) 0.0 0.1 CBC Comment DIFF FINAL AUTO DIFF Differential Comment AUTO DIFF CONFIRMED Prothrombin Time 17.3 Prothromb Time International Ratio 1.5 Activated Partial Thromboplast Time 29.7 Ammonia LESS THAN 10 Blood Urea Nitrogen 8 6 Creatinine 0.76 0.52 Random Glucose 102 87 Total Protein 7.2 Albumin 2.1 Calcium Level 7.9 7.9 Magnesium Level 1.7 Alkaline Phosphatase 122 Aspartate Amino Transf (AST/SGOT) 165 Alanine Aminotransferase (ALT/SGPT) 26 Total Bilirubin 1.9 Sodium Level 132 139 Potassium Level 3.5 3.5 Chloride Level 103 107 Carbon Dioxide Level 24.4 22.3 Anion Gap 5 10 Estimat Glomerular Filtration Rate 80 124 Total Creatine Kinase 251 Creatine Kinase MB 1.1 Creatine Kinase MB % 0.4 Troponin I LESS THAN 0.02 Platelet Estimate LOW Platelet Morphology Comment NORMAL Result Diagram: 03/24/17 0725 03/24/17 0725 Imaging Last Impressions Head CT 03/23/17 1507 Signed Impressions: Service Date/Time: Thursday, March 23, 2017 15:17 - CONCLUSION: Atrophy otherwise negative. Kaz Anderson MD FACR Chest X-Ray 03/23/17 1507 Signed Impressions: Service Date/Time: Thursday, March 23, 2017 15:15 - CONCLUSION: Minimal parenchymal changes left base, nonspecific. Kaz Anderson MD FACR Caprini VTE Risk Assessment Caprini VTE Risk Assessment: Mod/High Risk (score >= 2) Caprini Risk Assessment Model Point Value = 1 Point Value = 2 Point Value = 3 Point Value = 5 Age 41-60 Minor surgery BMI > 25 kg/m2 Swollen legs Varicose veins or History of unexplained or recurrent spontaneous Oral contraceptives or hormone replacement Sepsis (< 1 month) Serious lung disease, including pneumonia (< 1 month) Abnormal pulmonary function Acute myocardial infarction Congestive heart failure (< 1 month) History of inflammatory bowel disease Medical patient at bed rest Age 61-74 Arthroscopic surgery Major open surgery (> 45 min) Laparoscopic surgery (> 45 min) Malignancy Confined to bed (> 72 hours) Immobilizing plaster cast Central venous access Age >= 75 History of VTE Family history of VTE Factor V Leiden Prothrombin [id number] Lupus anticoagulant Anticardiolipin antibodies Elevated serum homocysteine Heparin-induced thrombocytopenia Other congenital or acquired thrombophilia Stroke (< 1 month) Elective arthroplasty Hip, pelvis, or leg fracture Acute spinal cord injury (< 1 month) Prophylaxis Regimen Total Risk Factor Score Risk Level Prophylaxis Regimen 0-1 Low Early ambulation 2 Moderate Order ONE of the following: *Sequential Compression Device (SCD) *Heparin 5000 units SQ BID 3-4 Higher Order ONE of the following medications: *Heparin 5000 units SQ TID *Enoxaparin/Lovenox 40 mg SQ daily (WT < 150 kg, CrCl > 30 mL/min) *Enoxaparin/Lovenox 30 mg SQ daily (WT < 150 kg, CrCl > 10-29 mL/min) *Enoxaparin/Lovenox 30 mg SQ BID (WT < 150 kg, CrCl > 30 mL/min) AND/OR *Sequential Compression Device (SCD) 5 or more Highest Order ONE of the following medications: *Heparin 5000 units SQ TID (Preferred with Epidurals) *Enoxaparin/Lovenox 40 mg SQ daily (WT < 150 kg, CrCl > 30 mL/min) *Enoxaparin/Lovenox 30 mg SQ daily (WT < 150 kg, CrCl > 10-29 mL/min) *Enoxaparin/Lovenox 30 mg SQ BID (WT < 150 kg, CrCl > 30 mL/min) AND *Sequential Compression Device (SCD) Assessment and Plan Assessment and Plan Falls at home Likely secondary to underlying cirrhosis, liver failure, encephalopathy Physical therapy consulted and indicates that patient would benefit from occupational therapy as well as PT at rehabilitation Case management consulted for rehabilitation placement Cirrhosis, history of alcohol abuse, ascites, hepatic encephalopathy, pancytopenia Continue home medications Ammonia level less than 10 Continue monitor CBC DVT prevention Sequential compression devices This note was transcribed by BARAK Gaxiola . I, Dr. Allyn Connelly personally performed the history, physical exam, and medical decision making; and confirmed the accuracy of the information in the transcribed note. Authenticated by Dr. Allyn Connelly on 03/24/17 at 15:00. Nick Vargas Mar 24, 2017 15:11 Allyn Connelly MD Mar 24, 2017 17:02
[2017-03-24] MEDS: ENOXAPARIN SODIUM 40 MG/0.4 ML SYRINGE SQ SCH (21:16)
[2017-03-25 04:00] VITALS: BP 95/61; PULSE 89; RESP 20; TEMP 98.6; O2SAT 97
[2017-03-25] MEDS: LEVOTHYROXINE SODIUM 50 MCG TAB PO SCH (05:35)
[2017-03-25 08:32] VITALS: BP 102/63; PULSE 76; RESP 22; TEMP 98.6; O2SAT 99
[2017-03-25] MEDS: PANTOPRAZOLE SOD 40 MG DELAYED RELEASE TAB PO SCH (08:32)
[2017-03-25] MEDS: MAGNESIUM OXIDE 400 MG TAB PO SCH (08:32)
[2017-03-25] MEDS: PROPRANOLOL HCL 10 MG TAB PO SCH ×2 (08:32→08:35)
[2017-03-25 08:33] VITALS: PULSE 71
[2017-03-25] MEDS: DOCUSATE SODIUM 50 MG/SENNA 8.6 MG TAB PO SCH (08:33)
[2017-03-25] MEDS: SPIRONOLACTONE 50 MG TAB PO SCH (08:33)
[2017-03-25] MEDS: SODIUM CHLORIDE 0.9% FLUSH 10 ML FLUSH IV FLUSH SCH (08:33)
[2017-03-25] MEDS: FUROSEMIDE 40 MG TAB PO SCH (08:33)
[2017-03-25] MEDS: RIFAXIMIN 550 MG TAB PO SCH (08:33)
[2017-03-25] MEDS: POTASSIUM CHLORIDE 10 MEQ CONTROLLED RELEASE TAB PO SCH (08:33)
--- NOTE | 2017-03-25 10:26 | HHI.PR ---
Subjective Remarks In bed. Feels much better today. Walked with PT. Discussed with PT patient is better, can walk 200 FT with the walker. Patient says she has a walker at home however did not use it. No fever or chills. No n/v/d/c. Eating well. Feels comfortable to go home./ says her will come and pick her up. Objective Vitals Vital Signs Date Time Temp Pulse Resp B/P (MAP) Pulse Ox O2 Delivery O2 Flow Rate FiO2 03/25/17 08:32 98.6 76 22 102/63 (76) 99 03/25/17 04:00 98.6 89 20 95/61 (72) 97 03/24/17 23:41 99.3 82 20 93/63 (73) 95 03/24/17 22:18 16 03/24/17 20:00 99.5 85 20 98/65 (76) 100 03/24/17 16:00 96.6 75 14 98/54 (69) 99 03/24/17 15:30 64 03/24/17 12:00 96.3 25 97/74 (82) 99 I/O 03/24/17 03/24/17 03/24/17 03/25/17 03/25/17 03/25/17 06:59 14:59 22:59 06:59 14:59 22:59 Intake Total 480 ml 1000 ml 480 ml 240 ml Output Total 4 ml Balance 476 ml 1000 ml 480 ml 240 ml Intake Oral 480 ml 480 ml 240 ml IV Total 1000 ml Output Urine Total 4 ml # Voids 3 2 # Bowel Movements 1 0 0 Result Diagram: 03/24/1772403/24/17724 Imaging Last Impressions Head CT 03/23/171506 Signed Impressions: Service Date/Time: Thursday, March 23, 2017 15:17 - CONCLUSION: Atrophy otherwise negative. Kaz Anderson MD FACR Chest X-Ray 03/23/171506 Signed Impressions: Service Date/Time: Thursday, March 23, 2017 15:15 - CONCLUSION: Minimal parenchymal changes left base, nonspecific. Kaz Anderson MD FACR Objective Remarks GENERAL: Well-developed, well-nourished, in no acute distress. alert and orientated CARDIAC: Regular rhythm, regular rate. S1/S2 are heard. No murmurs gallops or rubs. LUNGS: Clear to auscultation bilaterally. No wheeze, rhonchi or rales. No use of accessory muscles on inspiration or expiration. ABDOMEN: Soft, nontender. Mild distention, tympanic to percussion. Bowel sounds heard in all 4 quadrants. No organomegaly or masses. Negative rebound, negative guarding EXTREMITIES: No edema, pulses are equal bilaterally. No cyanosis or clubbing NEUROLOGY: Mood and affect appear appropriate. Cranial nerves II through XII grossly intact. Muscle strength 5/5 in upper and lower extremities bilaterally. A/P Problem List: (1) Fall at home ICD Code: W19.XXXA - Unspecified fall, initial encounter; Y92.099 - Unspecified place in other non-institutional residence as the place of occurrence of the external cause (2) Alcoholic cirrhosis of liver ICD Code: K70.30 - Alcoholic cirrhosis of liver without ascites Status: Acute Assessment and Plan Falls at home Likely secondary to underlying cirrhosis, liver failure, encephalopathy Physical therapy consulted and indicates that patient would benefit from occupational therapy as well as PT at rehabilitation Case management consulted for rehabilitation placement Cirrhosis, history of alcohol abuse, ascites, hepatic encephalopathy, pancytopenia Continue home medications Ammonia level less than 10 Continue monitor CBC DVT prevention Sequential compression devices DC plan: Walked with pT today 200 FT with a walker. Discussed with PT patient is safe for DC , patient has a walker at home. Case management following for DC plan Allyn Connelly MD Mar 25, 2017 10:26
--- NOTE | 2017-03-25 11:30 | HHI.DS ---
Discharge Summary Admission Date Mar 23, 2017 at 18:30 Discharge Date: Mar 25, 2017 Admitting Diagnosis ALTERED MENTAL STATUS (1) Fall at home ICD Code: W19.XXXA - Unspecified fall, initial encounter; Y92.099 - Unspecified place in other non-institutional residence as the place of occurrence of the external cause Diagnosis: Principal (2) Alcoholic cirrhosis of liver ICD Code: K70.30 - Alcoholic cirrhosis of liver without ascites Diagnosis: Principal Status: Acute Procedures none Brief History - From Admission Written by Nick Vargas, acting as scribe for Dr. Connelly on 03/24/17 at 15: 00. 51-year-old female with rather unfortunate situation with end-stage liver disease, from alcohol cirrhosis who was brought back to the hospital because of recurrent falls at home. Patient was just recently hospitalized for hepatic encephalopathy from 03/19/17 until 03/22/17. Patient went home and it was indicated by her significant other that she had fallen 5 times since she had gotten home. Because of that reason he brought her back to the hospital for evaluation. Patient had workup done emergency department with mild abnormalities to include mild hyponatremia, CT scans, chest x-rays were performed which did not indicate any acute abnormality. The patient significant other is very worried that he cannot take care of her home. He is trying to get her into a intermediate facility, however due to insurance reasons he has been unsuccessful. He indicates that the patient is trying to qualify for liver transplant, possible get TIPS procedure in order to manage her cirrhosis better. She had paracentesis done approximately 3 weeks ago with 5 L removal. She is followed by Dr Reed on a regular basis. Patient states that she is doing well this time her encephalopathy has significant improved since her last admission. She is able to form full sentences. Is recommended by the ER physician that the patient be observed in the hospital for further recommendations. CBC/BMP: 03/24/17 0725 03/24/17 0725 Significant Findings Laboratory Tests Test 03/23/17 15:40 03/23/17 17:00 03/24/17 07:25 Red Blood Count 3.00 MIL/MM3 (4.00-5.30) 3.02 MIL/MM3 (4.00-5.30) Hemoglobin 9.8 GM/DL (11.6-15.3) 9.5 GM/DL (11.6-15.3) Hematocrit 28.9 % (35.0-46.0) 29.0 % (35.0-46.0) Red Cell Distribution Width 19.8 % (11.6-17.2) 19.4 % (11.6-17.2) Monocytes (%) (Auto) 15.7 % (0.0-8.0) 14.0 % (0.0-8.0) Eosinophils (%) (Auto) 4.8 % (0.0-4.0) 5.0 % (0.0-4.0) Lymphocytes # (Auto) 0.9 TH/MM3 (1.0-4.8) 0.8 TH/MM3 (1.0-4.8) Prothrombin Time 17.3 SEC (9.8-11.6) Ammonia LESS THAN 10 MCMOL/L Albumin 2.1 GM/DL (3.4-5.0) Calcium Level 7.9 MG/DL (8.5-10.1) 7.9 MG/DL (8.5-10.1) Alkaline Phosphatase 122 U/L (45-117) Aspartate Amino Transf (AST/SGOT) 165 U/L (15-37) Total Bilirubin 1.9 MG/DL (0.2-1.0) Sodium Level 132 MEQ/L (136-145) Estimat Glomerular Filtration Rate 80 ML/MIN (>89) Total Creatine Kinase 251 U/L (26-192) Troponin I LESS THAN 0.02 NG/ML White Blood Count 3.2 TH/MM3 (4.0-11.0) Platelet Count 100 TH/MM3 (150-450) Neutrophils # (Auto) 1.7 TH/MM3 (1.8-7.7) Platelet Estimate LOW (NORMAL) Blood Urea Nitrogen 6 MG/DL (7-18) Imaging Last Impressions Head CT 03/23/17 1507 Signed Impressions: Service Date/Time: Thursday, March 23, 2017 15:17 - CONCLUSION: Atrophy otherwise negative. Kaz Anderson MD FACR Chest X-Ray 03/23/17 1507 Signed Impressions: Service Date/Time: Thursday, March 23, 2017 15:15 - CONCLUSION: Minimal parenchymal changes left base, nonspecific. Kaz Anderson MD FACR PE at Discharge GENERAL: Well-developed, well-nourished, in no acute distress. alert and orientated CARDIAC: Regular rhythm, regular rate. S1/S2 are heard. No murmurs gallops or rubs. LUNGS: Clear to auscultation bilaterally. No wheeze, rhonchi or rales. No use of accessory muscles on inspiration or expiration. ABDOMEN: Soft, nontender. Mild distention, tympanic to percussion. Bowel sounds heard in all 4 quadrants. No organomegaly or masses. Negative rebound, negative guarding EXTREMITIES: No edema, pulses are equal bilaterally. No cyanosis or clubbing NEUROLOGY: Mood and affect appear appropriate. Cranial nerves II through XII grossly intact. Muscle strength 5/5 in upper and lower extremities bilaterally. Pt update on day of discharge In bed. Feels much better today. Walked with PT. Discussed with PT patient is better, can walk 200 FT with the walker. Patient says she has a walker at home however did not use it. No fever or chills. No n/v/d/c. Eating well. Feels comfortable to go home./ says her will come and pick her up. Hospital Course 51-year-old female with rather unfortunate situation with end-stage liver disease, from alcohol cirrhosis who was brought back to the hospital because of recurrent falls at home. Patient was just recently hospitalized for hepatic encephalopathy from 03/19/17 until 03/22/17. Patient went home and it was indicated by her significant other that she had fallen 5 times since she had gotten home. Because of that reason he brought her back to the hospital for evaluation. Patient had workup done emergency department with mild abnormalities to include mild hyponatremia, CT scans, chest x-rays were performed which did not indicate any acute abnormality. The patient significant other is very worried that he cannot take care of her home. He is trying to get her into a intermediate facility, however due to insurance reasons he has been unsuccessful. He indicates that the patient is trying to qualify for liver transplant, possible get TIPS procedure in order to manage her cirrhosis better. She had paracentesis done approximately 3 weeks ago with 5 L removal. She is followed by Dr Reed on a regular basis. Patient states that she is doing well this time her encephalopathy has significant improved since her last admission. She is able to form full sentences. Is recommended by the ER physician that the patient be observed in the hospital for further recommendations. Patient improved, was evaluated by PT. Walked with PT 200 FT with a walker. Discussed with PT patient is safe for DC , patient has a walker at home. Discharged home in stable condition to follow up with PCP and consultants. Falls at home Likely secondary to underlying cirrhosis, liver failure, encephalopathy Physical therapy consulted and indicates that patient would benefit from occupational therapy as well as PT at rehabilitation Case management consulted for rehabilitation placement Cirrhosis, history of alcohol abuse, ascites, hepatic encephalopathy, pancytopenia Continue home medications Ammonia level less than 10 Continue monitor CBC DVT prevention Sequential compression devices DC plan: Walked with PT 200 FT with a walker. Discussed with PT patient is safe for DC , patient has a walker at home. Case management following for DC plan Pt Condition on Discharge: Stable Discharge Disposition: Disch w/ Home Health Serv Discharge Time: > 30 minutes Discharge Instructions DIET: Follow Instructions for: Heart Healthy Diet Activities you can perform: Regular-No Restrictions Follow up Referrals: Gastroenterology - 2 Weeks PCP Follow-up - 2-3 Days Continued Medications: Furosemide (Furosemide) 40 Mg Tab 40 MG PO DAILY, #30 TAB 0 Refills Lactulose Liq (Lactulose Liq) 10 Gm/15 Ml Soln 30 ML PO BID PRN for titrate to 3-4 bm, ML 0 Refills Levothyroxine (Levothyroxine) 50 Mcg Tab 50 MCG PO DAILY for Thyroid, #30 TAB 0 Refills Magnesium Oxide (Magnesium Oxide) 400 Mg Tab 400 MG PO DAILY for Nutritional Supplement for 30 Days, TAB 0 Refills Ondansetron Odt (Ondansetron Odt) 4 Mg Tab 4 MG SL Q6HR PRN for Nausea/Vomiting, #28 TAB 0 Refills Oxycodone (Roxicodone) 5 Mg Tab 5 MG PO Q8HR for Pain Management, #20 TAB 0 Refills USE SPARRINGLY POSSIBLE Pantoprazole (Pantoprazole) 40 Mg Tab 40 MG PO DAILY for Reflux, #30 TAB 0 Refills Potassium Chloride ER (Potassium Chloride ER) 10 Meq Tab 10 MEQ PO DAILY for Electrolyte Replacement, #30 TAB 0 Refills Promethazine (Phenergan) 25 Mg Tablet 25 MG PO Q6H PRN for NAUSEA OR VOMITING, #15 TAB 0 Refills Propranolol (Propranolol) 10 Mg Tab 10 MG PO Q12HR, #60 TAB 0 Refills Rifaximin (Xifaxan) 550 Mg Tab 550 MG PO BID for Liver, #60 TAB Spironolactone (Spironolactone) 50 Mg Tab 50 MG PO BIDPC for fluid retention, #60 TAB 0 Refills Allyn Connelly MD Mar 25, 2017 11:30
--- NOTE | 2017-03-25 12:27 | HHI.HCPN ---
Spoke with Dr. Connelly regarding Palliative Care consult. Ms. Santamaria indicated she was not interested in speaking with Palliative Care. She was not interested in speaking with some one from hospice. Her goals remain aggressive. Patient is being discharged home with home health services today 03/25/17. . Ileana Huber Mar 25, 2017 12:27
[2017-03-25 12:46] VITALS: BP 99/62; PULSE 78; RESP 16; TEMP 98.4; O2SAT 100
--- NOTE | 2017-03-25 14:09 | HHI.FF ---
Face to Face Verification Diagnosis: (1) Fall at home (2) Alcoholic cirrhosis of liver (3) Metabolic encephalopathy Home Health Nursing Order: Medical education Nursing assessment with vital signs I have seen patient Michelle Santamaria on 03/25/17. My clinical findings support the need for the requested home health care services because: Ltd mobility - disease progression Deconditioned w/ increased weakness I certify that my clinical findings support that this patient is homebound because: Impaired cognitive ability/safety Unsteady gait/balance Nick Vargas Mar 25, 2017 14:09
== END 2017-03-25 15:27 | disposition home or self-care (01) ==
LOC: PHED 14:41 → INTOOBSV 18:30 → PHEDA 18:30 → PH5A 20:51
PROVIDERS: ADMIT Hospitalist; ATTEND Hospitalist
DX: R41.82 Altered mental status, unspecified (principal); K70.31 Alcoholic cirrhosis of liver with ascites; G93.41 Metabolic encephalopathy; K92.2 Gastrointestinal hemorrhage, unspecified; F41.9 Anxiety disorder, unspecified; F10.20 Alcohol dependence, uncomplicated; E87.1 Hypo-osmolality and hyponatremia; E03.9 Hypothyroidism, unspecified; K76.6 Portal hypertension; J45.909 Unspecified asthma, uncomplicated; K72.90 Hepatic failure, unspecified without coma; R29.6 Repeated falls; Z96.642 Presence of left artificial hip joint; W19.XXXA Unspecified fall, initial encounter; Y92.009 Unspecified place in unspecified non-institutional (private) residence as the place of occurrence of the external cause
CPT/HCPCS: 70450; 71010; 80048; 80053; 82140; 82550; 82552; 82948; 83735; 84484; 85025; 85610; 85730; 93005; 96360; 96361; 96372; 97110; 97116; 97162; 97167; 99285; G0378; G8987; G8988; J1650; J7030

== ENCOUNTER 2017-03-29 10:12 | Day surgery (SDC) | payer MEDICAID ==
[~2017-03-29 10:12] MED LIST changes: -COMMODE BEDSIDE1 MI1
[2017-03-29 10:51] VITALS: BP 86/57; PULSE 73; RESP 20; TEMP 98.3; O2SAT 100
[2017-03-29 11:45] VITALS: BP 85/54; PULSE 71; RESP 20; TEMP 97.8; O2SAT 100
[2017-03-29 12:00] VITALS: BP 90/60; PULSE 69; RESP 20; O2SAT 100
[2017-03-29] MEDS ORDERED: LIDOCAINE HCL 1% PF 30 ML VIAL ONE (12:01)
--- NOTE | 2017-03-29 13:28 | RADRPT ---
EXAM DATE/TIME: 03/29/2017 10:42 [facility] COMPARISON: US GUIDED ABD PARACENTESIS, March 09, 2017, 9:18. INDICATIONS : Ascites. MEDICAL HISTORY : Hypothyroidism. Arthritis. Cirrhosis. Confusion. Asthma. Anorexi. Bulimia. Hiatal hernia. Upper GI Bl eed. Esophageal varices. Alcoholic hepatitis. Thrombocytopenia. Ascites. Depression. Anxiety. SURGICAL HISTORY : Cholecystectomy. Umbilical hernia repair. Esophageal banding. Left hip replacement. Blood transfusion s. Paracentesis. ENCOUNTER: Subsequent ACUITY: 3 weeks PAIN SCORE: 8/10 LOCATION: Right lower quadrant FLUID: Total volume of 4,000 cc of clear, yellow fluid was removed. Fluid was discarded. Paracentesis was therapeutic only. Post procedure scanning reveals no hematoma or other complication. TECHNIQUE: 1. Ultrasound guidance for abdominal paracentesis. 2. Paracentesis. The risks, benefits, and alternatives to ultrasound guided paracentesis were explained to the patient in detail including the risk of bleeding and infection. Written and verbal informed consent was obt ained. With the patient on the ultrasound table, ultrasound imaging was used to select the most appropriate approach for paracentesis. Overlying skin was prepped and draped in the usual sterile fashion and wi th a local anesthetic, a dermatotomy was made with an 11 blade scalpel. A 6 [place] ca theter was introduced into the peritoneal cavity and fluid was collected. The patient tolerated the procedure well and left the ultrasound suite in stable condition. CONCLUSION: Uncomplicated ultrasound guided paracentesis. Babak Yi MD on March 29, 2017 at 13:27 Board Certified Radiologist. This report was verified electronically.
== END 2017-03-29 12:20 | disposition home or self-care (01) ==
LOC: HRAD 10:12 → HRIP 10:14 → HRAD 12:20
PROVIDERS: ATTEND Internal Medicine Gastroenterology
DX: R18.8 Other ascites (principal); K74.60 Unspecified cirrhosis of liver; E03.9 Hypothyroidism, unspecified; J45.909 Unspecified asthma, uncomplicated; M19.90 Unspecified osteoarthritis, unspecified site; Z96.642 Presence of left artificial hip joint
CPT/HCPCS: 49083; C1729

== ENCOUNTER 2017-04-08 10:03 | Day surgery (SDC) | payer MEDICAID ==
[2017-04-08 10:42] VITALS: BP 93/56; PULSE 72; RESP 14; TEMP 98; O2SAT 100
--- NOTE | 2017-04-08 11:46 | RADRPT ---
EXAM DATE/TIME: 04/08/2017 10:34 [facility] COMPARISON: US ABDOMEN - LOWER LIMITED, February 03, 2017, 16:40. INDICATIONS : Ascites. MEDICAL HISTORY : Hypothyroidism. Arthritis. Cirrhosis. Confusion. Asthma. Anorexia. Bulimia. Hiatal hernia. Upper GI B leed. Esophageal varices. Alcoholic hepatitis. Thrombocytopenia. Ascites. Depression. Anxiety. SURGICAL HISTORY : Cholecystectomy. Umbilical hernia repair. Esophageal banding. Left hip replacement. Blood transfusi ons. Paracentesis. ENCOUNTER: Subsequent ACUITY: 4-6 days PAIN SCORE: 3/10 LOCATION: Left lower quadrant AREA EVALUATED: Abdomen. FINDINGS: Sonographic evaluation of the abdomen was performed which shows a moderate amount of ascitic fluid. T he patient has multiple loops of bowel floating within the ascites. Initially a pocket was identified within the left lower quadrant where the bowel loops were not dispersed within the fluid, however, t he bowel quickly filled this area. Despite multiple changes in the patient's position I was unable to regain a pocket of fluid without bowel loops for safe paracentesis. We will have to await for more f luid accumulation prior to attempted paracentesis. CONCLUSION: The patient does have a fair amount of ascites, however, the patient's bowel loops are dispersed thro ughout the ascites and there is no pocket free of bowel loops to allow for safe paracentesis. We will have to wait for more fluid accumulation prior to paracentesis. Faisal Soriano Jr., MD on April 08, 2017 at 11:42 Board Certified Radiologist. This report was verified electronically.
[2017-04-08] MEDS ORDERED: LIDOCAINE HCL 1% 20 ML VIAL ONE (11:47)
== END 2017-04-08 11:39 | disposition home or self-care (01) ==
LOC: HRAD 10:03 → HRIP 10:03 → HRAD 11:39
PROVIDERS: ATTEND Internal Medicine Gastroenterology
DX: R18.8 Other ascites (principal)
CPT/HCPCS: 76705

== ENCOUNTER 2017-04-10 10:45 | Emergency (ER) | payer MEDICAID ==
[~2017-04-10] VITALS: Ht 162.6 cm; Wt 50.0 kg
[2017-04-10 10:55] VITALS: BP 103/57; PULSE 78; RESP 18; O2SAT 100
[2017-04-10] MEDS ORDERED: SODIUM CHLOR 0.9% 1000 ML INJ 1,000 ML IV SCH (11:15)
[2017-04-10] MEDS ORDERED: ONDANSETRON HCL 4 MG/2 ML VIAL IV ONE (11:45)
[2017-04-10 11:46] LABS: AUTOMATED NEUTROPHIL # 3.3 TH/MM3 (1.8-7.7); BASOPHIL % 0.7 % (0.0-2.0); EOSINOPHIL # 0.2 TH/MM3 (0-0.4); EOSINOPHIL % 3.2 % (0.0-4.0); HEMATOCRIT 28.9 % (35.0-46.0); HEMO FLAGS DIFF FINAL; LYMPH % 20.9 % (9.0-44.0); LYMPHOCYTE # 1.1 TH/MM3 (1.0-4.8); MEAN CORPUSCULAR HEMOGLOBIN 31.7 PG (27.0-34.0); MEAN CORPUSCULAR HGB CONC 33.3 % (32.0-36.0); MONO % 12.2 % (0.0-8.0); PLATELET COUNT 146 TH/MM3 (150-450); RED BLOOD COUNT 3.05 MIL/MM3 (4.00-5.30); RED CELL DISTRIBUTION WIDTH 18.5 % (11.6-17.2); WHITE BLOOD COUNT 5.2 TH/MM3 (4.0-11.0)
[2017-04-10 11:49] LABS: APTT (PATIENT) 31.3 SEC (24.3-30.1); INTERNATIONAL NORMALIZED RATIO 1.3 RATIO; PROTHROMBIN TIME - PATIENT 14.8 SEC (9.8-11.6)
[2017-04-10 11:53] LABS: CHLORIDE 96 MEQ/L (98-107); POTASSIUM 4.5 MEQ/L (3.5-5.1); SODIUM (NA) 127 MEQ/L (136-145)
[2017-04-10 11:56] LABS: ANION GAP 10 MEQ/L (5-15); BICARBONATE 21.3 MEQ/L (21.0-32.0)
[2017-04-10 11:57] LABS: BLOOD UREA NITROGEN 12 MG/DL (7-18)
--- NOTE | 2017-04-10 11:58 | PD ---
HPI Chief Complaint: Chest Pain Time Seen by Provider: 11:02 Travel History International Travel<30 days: No Contact w/Intl Traveler<30days: No Traveled to known affect area: No History of Present Illness HPI So 52 year-old woman presents to the emergency department complaining of nausea vomiting and chest pain. She is a history of end-stage liver disease from hepatic cirrhosis alcoholic cirrhosis. She takes diuretics, is rifaxin and lactulose. She follows with Dr. vicente santiago. She has occasional nausea and vomiting. She is Zofran as needed. She started having nausea and vomiting again last night but then this morning developed chest pain and pain radiating to the right arm and so her family brought her into the emergency department. No diarrhea. No fevers or chills. No abdominal pain. She otherwise has been feeling generally well and healthy. History Past Medical History Narrative Medical End-stage liver disease, alcoholic cirrhosis Hepatic encephalopathy Duodenal AVMs Hypothyroidism Tetanus Vaccination: > 5 Years Influenza Vaccination: Yes Menopausal: Yes Social History Alcohol Use: No (H/O alcoholism ) Tobacco Use: No Allergies-Medications (Allergen,Severity, Reaction): Coded Allergies: aspirin (Unverified Adverse Reaction, Severe, Bleeding, 04/10/17) codeine (Unverified Adverse Reaction, Severe, Vomiting, 04/10/17) morphine (Unverified Adverse Reaction, Severe, 04/10/17) Patient's states someone overdosed her on XR morphine nortriptyline (Unverified Adverse Reaction, Severe, Hallucinations, vomiting , 04/10/17) Reported Meds & Prescriptions Reported Meds & Active Scripts Active Phenergan (Promethazine HCl) 25 Mg Tablet 25 Mg PO Q6H PRN Spironolactone 50 Mg Tab 50 Mg PO BIDPC Ondansetron Odt 4 Mg Tab 4 Mg SL Q6HR PRN Roxicodone (Oxycodone HCl) 5 Mg Tab 5 Mg PO Q8HR USE SPARRINGLY POSSIBLE Potassium Chloride ER (Potassium Chloride) 10 Meq Tab 10 Meq PO DAILY Magnesium Oxide 400 Mg Tab 400 Mg PO DAILY 30 Days Levothyroxine (Levothyroxine Sodium) 50 Mcg Tab 50 Mcg PO DAILY Xifaxan (Rifaximin) 550 Mg Tab 550 Mg PO BID Reported Propranolol (Propranolol HCl) 10 Mg Tab 10 Mg PO Q12HR Lactulose Liq (Lactulose) 10 Gm/15 Ml Soln 30 Ml PO BID PRN Pantoprazole (Pantoprazole Sodium) 40 Mg Tab 40 Mg PO DAILY Furosemide 40 Mg Tab 40 Mg PO DAILY Review of Systems Except as stated in HPI: all other systems reviewed are Neg Physical Exam Narrative GENERAL: Chronically ill appearing 52 year-old woman, no acute distress. SKIN: Decreased skin turgor. HEAD: Atraumatic. Normocephalic. EYES: Pupils equal and round. No scleral icterus. No injection or drainage. ENT: No nasal bleeding or discharge. Dry mucous membranes. NECK: Trachea midline. No JVD. CARDIOVASCULAR: Regular rate and rhythm. No murmur appreciated. RESPIRATORY: No accessory muscle use. Clear to auscultation. Breath sounds equal bilaterally. GASTROINTESTINAL: Abdomen flat and soft. No significant ascites. Minimal diffuse tenderness, worse on the right. MUSCULOSKELETAL: No obvious deformities. No edema. NEUROLOGICAL: Awake and alert. No obvious cranial nerve deficits. Motor grossly within normal limits. Normal speech. PSYCHIATRIC: Appropriate mood and affect; insight and judgment normal. Data Data Last Documented VS Vital Signs Date Time Temp Pulse Resp B/P (MAP) Pulse Ox O2 Delivery O2 Flow Rate FiO2 04/10/17 12:10 82 16 108/54 (72) 99 Room Air Orders Orders Electrocardiogram (04/10/17 10:53) Complete Blood Count With Diff (04/10/17 11:14) Comprehensive Metabolic Panel (04/10/17 11:14) Act Partial Throm Time (Ptt) (04/10/17 11:14) Prothrombin Time / Inr (Pt) (04/10/17 11:14) Ammonia (04/10/17 11:14) Iv Access Insert/Monitor (04/10/17 11:14) Urinalysis - C+S If Indicated (04/10/17 11:14) Chest, Single Ap (04/10/17 ) Troponin I (04/10/17 11:14) Sodium Chlor 0.9% 1000 Ml Inj (Ns 1000 M (04/10/17 11:15) Ondansetron Inj (Zofran Inj) (04/10/17 11:45) Prochlorperazine Inj (Compazine Inj) (04/10/17 12:00) Urine Culture (04/10/17 12:15) Labs Laboratory Tests Test 04/10/17 11:29 04/10/17 12:15 White Blood Count 5.2 TH/MM3 Red Blood Count 3.05 MIL/MM3 Hemoglobin 9.6 GM/DL Hematocrit 28.9 % Mean Corpuscular Volume 95.0 FL Mean Corpuscular Hemoglobin 31.7 PG Mean Corpuscular Hemoglobin Concent 33.3 % Red Cell Distribution Width 18.5 % Platelet Count 146 TH/MM3 Mean Platelet Volume 7.1 FL Neutrophils (%) (Auto) 63.0 % Lymphocytes (%) (Auto) 20.9 % Monocytes (%) (Auto) 12.2 % Eosinophils (%) (Auto) 3.2 % Basophils (%) (Auto) 0.7 % Neutrophils # (Auto) 3.3 TH/MM3 Lymphocytes # (Auto) 1.1 TH/MM3 Monocytes # (Auto) 0.6 TH/MM3 Eosinophils # (Auto) 0.2 TH/MM3 Basophils # (Auto) 0.0 TH/MM3 CBC Comment DIFF FINAL Differential Comment Prothrombin Time 14.8 SEC Prothromb Time International Ratio 1.3 RATIO Activated Partial Thromboplast Time 31.3 SEC Blood Urea Nitrogen 12 MG/DL Creatinine 0.80 MG/DL Random Glucose 101 MG/DL Total Protein 8.4 GM/DL Albumin 2.3 GM/DL Calcium Level 7.9 MG/DL Alkaline Phosphatase 187 U/L Aspartate Amino Transf (AST/SGOT) 64 U/L Alanine Aminotransferase (ALT/SGPT) 29 U/L Total Bilirubin 4.6 MG/DL Sodium Level 127 MEQ/L Potassium Level 4.5 MEQ/L Chloride Level 96 MEQ/L Carbon Dioxide Level 21.3 MEQ/L Anion Gap 10 MEQ/L Estimat Glomerular Filtration Rate 75 ML/MIN Ammonia 52 MCMOL/L Troponin I LESS THAN 0.02 NG/ML Urine Collection Type CLEAN CATCH Urine Color DILAN Urine Turbidity SLIGHT Urine pH 6.0 Urine Specific [place] 1.028 Urine Protein 30 mg/dL Urine Glucose (UA) NEG mg/dL Urine Ketones NEG mg/dL Urine Occult Blood TRACE Urine Nitrite POS Urine Bilirubin SMALL Urine Leukocyte Esterase NEG Urine RBC 0-3 /hpf Urine WBC 0-2 /hpf Urine Squamous Epithelial Cells > 8 /hpf Urine Amorphous Sediment MOD Urine Bacteria MOD /hpf Microscopic Urinalysis Comment CULTURE INDICATED Urine Collection Time 1215 MDM Medical Decision Making Medical Screen Exam Complete: Yes Emergency Medical Condition: Yes Interpretation(s) My review of EKG: Normal sinus rhythm at a rate of 78, normal axis, normal intervals, no definite evidence of acute ischemia. LABS: CBC generally unremarkable. Medical benign 0.6. CMP with mildly low sodium, bilirubin 4.6, elevated total protein Troponin negative Ammonia 52 INR 1.3 UA is unremarkable. Chest x-ray: No acute disease. No significant change has occurred. Differential Diagnosis Weakness, ascites, infection, other Narrative Course Medical decision making 52 year-old woman presents to the emergency department complaining of nausea vomiting and chest pain. Has vomiting started first. She does have that from time to time with her of her disease. States she developed chest pain and right arm pain with it. I don't think this is likely cardiac. May be related to esophagitis with the vomiting. We'll check labs, x-ray, EKG, reassess. Diagnosis Primary Impression: Nausea and vomiting Additional Impression: Chest pain Additional Instructions: Continue Zofran as a for nausea or vomiting. Continue her other current medications. Follow-up with her primary doctor in the next 2-4 days. Med/Other Pt SpecificInfo: Prescription(s) given Scripts Ondansetron Odt (Zofran Odt) 4 Mg Tab 4 MG SL Q8HR Y for Nausea/Vomiting, #30 TAB 0 Refills Prov: Jesus Alberto Garcia MD 04/10/17 Disposition: 01 DISCHARGE HOME Condition: Stable Jesus Alberto Garcia MD Apr 10, 2017 11:58
[2017-04-10 11:59] LABS: ALT (GPT) 29 U/L (10-53); AST (GOT) 64 U/L (15-37)
[2017-04-10 12:00] LABS: GLOMERULAR FILTRATION RATE 75 ML/MIN (>89)
[2017-04-10] MEDS ORDERED: PROCHLORPERAZINE INJ 10 MG/2 ML VIAL IV PUSH ONE (12:00)
[2017-04-10 12:01] LABS: TOTAL BILIRUBIN ADULT 4.6 MG/DL (0.2-1.0)
--- NOTE | 2017-04-10 12:01 | RADRPT ---
EXAM DATE/TIME: 04/10/2017 11:20 [facility] COMPARISON: CHEST SINGLE AP, March 23, 2017, 15:15. INDICATIONS : Chest pain and tingling in right arm. MEDICAL HISTORY : Hypothyroidism. Arthritis. Cirrhosis. Confusion. Asthma. Anorexia. Bulimia. Hiatal SURGICAL HISTORY : Cholecystectomy. Umbilical hernia repair. Esophageal banding. Left hip replacement; paracentesis ENCOUNTER: Initial ACUITY: 1 day PAIN SCORE: 7/10 LOCATION: Right tingling in right arm FINDINGS: A single view of the chest demonstrates the lungs to be symmetrically aerated without evidence of mas s, infiltrate or effusion. The previously noted left lower lung atelectasis has resolved. The cardiom ediastinal contours are unremarkable. Osseous structures are intact. CONCLUSION: No acute disease. No significant change has occurred. Deepak Rhoades MD on April 10, 2017 at 12:00 Board Certified Radiologist. This report was verified electronically.
[2017-04-10 12:02] LABS: ALKALINE PHOSPHATASE 187 U/L (45-117)
--- NOTE | 2017-04-10 12:06 | EKG ---
Date Performed: 04/10/2017 Time Performed: 10:53:00 PTAGE: 52 years EKG: Sinus rhythm LOW QRS VOLTAGE IN PRECORDIAL LEADS NONSPECIFIC T-WAVE ABNORMALITY BORDERLINE ECG No significant ronni nge from prior electrocardiogram. PREVIOUS TRACING : 03/23/2017 15.48 DOCTOR: Maxi Meadows Interpretating Date/Time 04/10/2017 12:05:28
[2017-04-10 12:10] VITALS: BP 108/54; PULSE 82; RESP 16; O2SAT 99
[2017-04-10 12:19] LABS: GLUCOSE,URINE NEG (NEG); KETONE, URINE NEG (NEG); NITRITE,URINE POS (NEG)
[2017-04-10 12:21] LABS: BLOOD, URINE TRACE (NEG)
[2017-04-10 12:30] LABS: METHOD OF COLLECTION CLEAN CATCH
[2017-04-10 12:31] LABS: URINE COLOR AMBER (YELLW/STRAW); WBC, URINE 0-2 /hpf (0-5)
[2017-04-10 12:32] LABS: BACTERIA, URINE MOD /hpf; COMMENT (UR) CULTURE INDICATED; COMMENT2 (UR) MUCOUS PRESENT; CULTURE IF INDICATED CULTURE INDICATED; RBC, URINE 0-3 /hpf (0-3); SQUAMOUS EPITHELIAL CELL URINE > 8 /hpf (0-5)
[2017-04-10 13:00] VITALS: BP 105/58; PULSE 82; RESP 16; O2SAT 100
[2017-04-10] MEDS ORDERED: ZOFR4TAB3 SL (14:06)
[2017-04-10 14:45] VITALS: BP 107/53
== END 2017-04-10 14:47 | disposition home or self-care (01) ==
LOC: PHED 10:45
DX: R07.89 Other chest pain (principal); R11.2 Nausea with vomiting, unspecified; K70.30 Alcoholic cirrhosis of liver without ascites; E03.9 Hypothyroidism, unspecified; Z79.899 Other long term (current) drug therapy
CPT/HCPCS: 71010; 80053; 81001; 82140; 84484; 85025; 85610; 85730; 87086; 93005; 96361; 96374; 96375; 99285; J0780; J2405; J7030

== ENCOUNTER 2017-04-13 01:56 | Inpatient (IN) | payer MEDICAID ==
[2017-04-13] VITALS (11 sets, daily range): BP systolic 93–156; BP diastolic 50–69; PULSE 54–83; RESP 12–20; TEMP 96.8–99.1; O2SAT 96–100
[~2017-04-13] VITALS: Ht 162.6 cm; Wt 49.4 kg
[~2017-04-13 01:56] MED LIST changes: +ZOFR4TAB3 SL
--- NOTE | 2017-04-13 02:29 | PD ---
HPI Chief Complaint: GI Complaint Time Seen by Provider: 02:21 Travel History International Travel<30 days: No Contact w/Intl Traveler<30days: No Traveled to known affect area: No History of Present Illness HPI 52-year-old female presents to the emergency department for complaint of abdominal pain. Patient has end-stage alcoholic cirrhotic liver disease. Patient is seen frequently for exacerbation of her abdominal pain and recurrent ascites. Patient states she was seen here 2 days ago and at that time she was given a one-time dose of Zofran with resolution of her symptoms. Patient states she takes Zofran around 9 PM Tuesday evening but symptoms have not improved. Patient has had nausea vomiting and last bowel movement was last evening. Patient denies any abdominal distention. Patient does complain of lower abdominal pain. No hematemesis or coffee-ground emesis. Patient denies fever or chills. Patient is able to identify exacerbating or alleviating factors. PFSH Past Medical History Narrative Medical Arthritis asthma cirrhosis ascites anxiety depression hernia upper GI bleed variceal bleed Hx Anticoagulant Therapy: No Arthritis: Yes Asthma: Yes Autoimmune Disease: No Anxiety: Yes Depression: Yes Heart Rhythm Problems: No Cancer: No Cardiovascular Problems: No High Cholesterol: No Chemotherapy: No Chest Pain: No Congestive Heart Failure: No Cirrhosis: Yes (End stage ) COPD: No Cerebrovascular Accident: No Diabetes: No Diminished Hearing: No Endocrine: Yes Gastrointestinal Disorders: Yes (Upper GIB, varices, bleeding ulcers ) GERD: No Genitourinary: No Headaches: No Hepatitis: Yes (Alcoholic ) Hiatal Hernia: Yes Heparin Induced Thrombocytopen: No Hypertension: No Immune Disorder: No Implanted Vascular Access Dvce: No Kidney Stones: No Musculoskeletal: No Neurologic: No Psychiatric: Yes Reproductive: No Respiratory: No Immunizations Current: Yes Migraines: No Radiation Therapy: No Renal Failure: No Seizures: No Sickle Cell Disease: No Sleep Apnea: No Thyroid Disease: Yes (Hypothyroidism) Ulcer: No ?: Not Menopausal: Yes Past Surgical History Abdominal Surgery: Yes (Umb. hernia repair ) AICD: No Body Medical Devices: NONE Cardiac Surgery: No Cholecystectomy: Yes (2006) Ear Surgery: No Endocrine Surgery: No Eye Surgery: No Genitourinary Surgery: No Gynecologic Surgery: No Hysterectomy: No Insulin Pump: No Joint Replacement: Yes (Lt. hip) Neurologic Surgery: No Oral Surgery: No Pacemaker: No Thoracic Surgery: No Other Surgery: Yes (Cholecystectomy) Social History Alcohol Use: No (H/O alcoholism ) Tobacco Use: No Substance Use: No Allergies-Medications (Allergen,Severity, Reaction): Coded Allergies: aspirin (Unverified Adverse Reaction, Severe, Bleeding, 04/13/17) codeine (Unverified Adverse Reaction, Severe, Vomiting, 04/13/17) morphine (Unverified Adverse Reaction, Severe, 04/13/17) Patient's states someone overdosed her on XR morphine nortriptyline (Unverified Adverse Reaction, Severe, Hallucinations, vomiting , 04/13/17) Reported Meds & Prescriptions Reported Meds & Active Scripts Active Zofran Odt (Ondansetron Odt) 4 Mg Tab 4 Mg SL Q8HR PRN Phenergan (Promethazine HCl) 25 Mg Tablet 25 Mg PO Q6H PRN Spironolactone 50 Mg Tab 50 Mg PO BIDPC Ondansetron Odt 4 Mg Tab 4 Mg SL Q6HR PRN Roxicodone (Oxycodone HCl) 5 Mg Tab 5 Mg PO Q8HR USE SPARRINGLY POSSIBLE Potassium Chloride ER (Potassium Chloride) 10 Meq Tab 10 Meq PO DAILY Magnesium Oxide 400 Mg Tab 400 Mg PO DAILY 30 Days Levothyroxine (Levothyroxine Sodium) 50 Mcg Tab 50 Mcg PO DAILY Xifaxan (Rifaximin) 550 Mg Tab 550 Mg PO BID Reported Propranolol (Propranolol HCl) 10 Mg Tab 10 Mg PO Q12HR Lactulose Liq (Lactulose) 10 Gm/15 Ml Soln 30 Ml PO BID PRN Pantoprazole (Pantoprazole Sodium) 40 Mg Tab 40 Mg PO DAILY Furosemide 40 Mg Tab 40 Mg PO DAILY Review of Systems Except as stated in HPI: all other systems reviewed are Neg General / Constitutional: No: Fever Eyes: No: Visual changes HENT: No: Congestion Cardiovascular: No: Chest Pain or Discomfort Respiratory: Positive: Shortness of Breath Gastrointestinal: Positive: Nausea, Abdominal Pain Genitourinary: No: Dysuria, Decreased Urinary Output Musculoskeletal: No: Myalgias, Arthralgias Skin: No Rash Neurologic: Positive: Weakness Psychiatric: Positive: Anxiety Hematologic/Lymphatic: Positive: Easy Bruising Physical Exam Narrative GENERAL: Well-developed well-nourished female in no acute distress no respiratory distress SKIN: Warm and dry. HEAD: Normocephalic. EYES: No scleral icterus. No injection or drainage. NECK: Supple, trachea midline. No JVD or lymphadenopathy. CARDIOVASCULAR: Regular rate and rhythm without murmurs, gallops, or rubs. RESPIRATORY: Breath sounds equal bilaterally. No accessory muscle use. GASTROINTESTINAL: Abdomen soft, epigastric tenderness to palpation, no guarding and no rebound, nondistended. MUSCULOSKELETAL: No cyanosis, or edema. BACK: Nontender without obvious deformity. No CVA tenderness. Data Data Last Documented VS Vital Signs Date Time Temp Pulse Resp B/P (MAP) Pulse Ox O2 Delivery O2 Flow Rate FiO2 04/13/17 05:50 77 16 100/58 (72) 96 Room Air 04/13/17 03:15 98.6 Orders Orders Complete Blood Count With Diff (04/13/17 02:21) Comprehensive Metabolic Panel (04/13/17 02:21) Lipase (04/13/17 02:21) Lactic Acid (04/13/17 02:21) Prothrombin Time / Inr (Pt) (04/13/17 02:21) Act Partial Throm Time (Ptt) (04/13/17 02:21) Urinalysis - C+S If Indicated (04/13/17 02:21) Abdomen, Flat & Upright (04/13/17 ) Iv Access Insert/Monitor (04/13/17 02:21) Ecg Monitoring (04/13/17 02:21) Oximetry (04/13/17 02:21) Ondansetron Inj (Zofran Inj) (04/13/17 02:30) Sodium Chloride 0.9% Flush (Ns Flush) (04/13/17 02:30) Ammonia (04/13/17 02:21) Lactulose Liq (Lactulose Liq) (04/13/17 06:30) Cotton Agent / Telemetry COCO.Q8H (04/13/17 06:21) Diet Npo (04/13/17 Breakfast) Activity Oob With Assistance (04/13/17 06:21) Notify Dr: Other (04/13/17 06:21) Labs Laboratory Tests Test 04/13/17 02:58 04/13/17 03:51 04/13/17 03:57 Urine Color DILAN Urine Turbidity CLEAR Urine pH 6.5 Urine Specific [place] 1.026 Urine Protein NEG mg/dL Urine Glucose (UA) NEG mg/dL Urine Ketones NEG mg/dL Urine Occult Blood NEG Urine Nitrite NEG Urine Bilirubin NEG Urine Leukocyte Esterase NEG Urine WBC 0-2 /hpf Urine Squamous Epithelial Cells 6-8 /hpf Urine Hyaline Casts 15-19 /lpf Urine Mucus MOD /lpf Microscopic Urinalysis Comment CULT NOT INDICATED White Blood Count 5.9 TH/MM3 Red Blood Count 3.06 MIL/MM3 Hemoglobin 9.7 GM/DL Hematocrit 29.4 % Mean Corpuscular Volume 95.9 FL Mean Corpuscular Hemoglobin 31.8 PG Mean Corpuscular Hemoglobin Concent 33.2 % Red Cell Distribution Width 19.0 % Platelet Count 132 TH/MM3 Mean Platelet Volume 7.4 FL Neutrophils (%) (Auto) 63.8 % Lymphocytes (%) (Auto) 16.9 % Monocytes (%) (Auto) 14.1 % Eosinophils (%) (Auto) 4.0 % Basophils (%) (Auto) 1.2 % Neutrophils # (Auto) 3.8 TH/MM3 Lymphocytes # (Auto) 1.0 TH/MM3 Monocytes # (Auto) 0.8 TH/MM3 Eosinophils # (Auto) 0.2 TH/MM3 Basophils # (Auto) 0.1 TH/MM3 CBC Comment DIFF FINAL Differential Comment Prothrombin Time 14.7 SEC Prothromb Time International Ratio 1.3 RATIO Activated Partial Thromboplast Time 30.4 SEC Blood Urea Nitrogen 13 MG/DL Creatinine 0.86 MG/DL Random Glucose 112 MG/DL Total Protein 7.5 GM/DL Albumin 2.0 GM/DL Calcium Level 7.6 MG/DL Alkaline Phosphatase 202 U/L Aspartate Amino Transf (AST/SGOT) 57 U/L Alanine Aminotransferase (ALT/SGPT) 25 U/L Total Bilirubin 2.1 MG/DL Sodium Level 126 MEQ/L Potassium Level 4.9 MEQ/L Chloride Level 94 MEQ/L Carbon Dioxide Level 22.3 MEQ/L Anion Gap 10 MEQ/L Estimat Glomerular Filtration Rate 69 ML/MIN Ammonia 75 MCMOL/L Lipase 210 U/L Lactic Acid Level 1.8 mmol/L MDM Medical Decision Making Medical Screen Exam Complete: Yes Emergency Medical Condition: Yes Medical Record Reviewed: Yes Interpretation(s) NH3: 75, elevated ABD xr" colonic ileus per reading radiologist Last Impressions Abdomen X-Ray 04/13/17 0000 Signed Impressions: Service Date/Time: Thursday, April 13, 2017 02:35 - CONCLUSION: 1. Findings compatible with colonic ileus. Babak Yi MD CBC & BMP Diagram 04/13/17 03:51 Total Protein 7.5 #, Albumin 2.0 L, Calcium Level 7.6 L, Alkaline Phosphatase 202 H, Aspartate Amino Transf (AST/SGOT) 57 H, Alanine Aminotransferase (ALT/ SGPT) 25, Total Bilirubin 2.1 H Vital Signs Date Time Temp Pulse Resp B/P (MAP) Pulse Ox O2 Delivery O2 Flow Rate FiO2 04/13/17 05:50 77 16 100/58 (72) 96 Room Air 04/13/17 04:46 83 18 104/59 (74) 98 Room Air 04/13/17 04:15 78 18 98/52 (67) 98 Room Air 04/13/17 03:15 98.6 80 16 96/51 (66) 98 Room Air 04/13/17 02:24 99.1 81 18 108/53 (71) 100 04/13/17 02:04 99.1 81 12 108/53 (71) 100 Differential Diagnosis Abdominal pain, bowel obstruction, colitis, diverticulitis, peritonitis, UTI, hepatic encephalopathy Narrative Course IV access obtained specimens collected and sent for resulting and upright shows colonic ileus per reading radiologist elevated serum ammonia of 75 lactose administered CBC is automated differential values stable Metabolic panel remarkable for hypernatremia chronic hypocalcemia associated with hypoalbuminemia. BUN/creatinine stable Patient again complaining of nausea no further vomiting Discussed with on-call medicine for observation for bowel rest and management of hyperammonemia Physician Communication Physician Communication discussed with Dr Crabtree --OBS Diagnosis Primary Impression: Ileus Additional Impression: Nausea & vomiting Admitting Information Admitting Physician Requests: Observation Kerrie Boyle MD Apr 13, 2017 02:29
[2017-04-13] MEDS ORDERED: SODIUM CHLORIDE 0.9% FLUSH 10 ML FLUSH IV FLUSH PRN ×2 (02:30→06:30)
[2017-04-13] MEDS ORDERED: ONDANSETRON HCL 4 MG/2 ML VIAL IVP ONE (02:30)
[2017-04-13 03:18] LABS: BLOOD, URINE NEG (NEG); GLUCOSE,URINE NEG (NEG); KETONE, URINE NEG (NEG); NITRITE,URINE NEG (NEG); PH, URINE 6.5 (5.0-8.5)
[2017-04-13 03:29] LABS: URINE COLOR AMBER (YELLW/STRAW)
[2017-04-13 03:30] LABS: HYALINE CAST, URINE 15-19 /lpf (RARE); MUCUS URINE MOD /lpf (OCC); WBC, URINE 0-2 /hpf (0-5)
[2017-04-13 03:31] LABS: COMMENT (UR) CULT NOT INDICATED; CULTURE IF INDICATED CULT NOT INDICATED
--- NOTE | 2017-04-13 03:45 | RADRPT ---
EXAM DATE/TIME: 04/13/2017 02:35 [facility] COMPARISON: ABDOMEN FLAT & UPRIGHT, March 21, 2017, 12:14. INDICATIONS : Abdominal pain. MEDICAL HISTORY : Hypothyroidism. Arthritis. Cirrhosis. Confusion. Asthma. Anorexia. Bulimia. Hiatal hernia. Upper GI B leed. Esophageal varices. Alcoholic hepatitis. Thrombocytopenia. Ascites. SURGICAL HISTORY : Cholecystectomy. Umbilical hernia repair. Esophageal banding. Left hip replacement. Blood transfusion s. Paracentesis. ENCOUNTER: Initial ACUITY: 3 days PAIN SCORE: 8/10 LOCATION: all quadrants. TECH NOTE: AZRA GARSIA MR#[id number] :65 Exam date/desc:April 13, 2017ABDOMEN FLAT & UPRIGHT FINDINGS: Examination of the abdomen demonstrates gaseous distention of the colon most consistent with ileus .T here are no findings of small bowel obstruction. No free air is identified. No organomegaly is eviden t. There are surgical clips in the right upper quadrant compatible with prior cholecystectomy. CONCLUSION: 1. Findings compatible with colonic ileus. Babak Yi MD on April 13, 2017 at 3:42 Board Certified Radiologist. This report was verified electronically.
[2017-04-13 04:17] LABS: CHLORIDE 94 MEQ/L (98-107); SODIUM (NA) 126 MEQ/L (136-145)
[2017-04-13 04:21] LABS: ANION GAP 10 MEQ/L (5-15); BICARBONATE 22.3 MEQ/L (21.0-32.0); BLOOD UREA NITROGEN 13 MG/DL (7-18)
[2017-04-13 04:24] LABS: ALT (GPT) 25 U/L (10-53); AST (GOT) 57 U/L (15-37); GLOMERULAR FILTRATION RATE 69 ML/MIN (>89)
[2017-04-13 04:33] LABS: APTT (PATIENT) 30.4 SEC (24.3-30.1); INTERNATIONAL NORMALIZED RATIO 1.3 RATIO; PROTHROMBIN TIME - PATIENT 14.7 SEC (9.8-11.6)
[2017-04-13 04:39] LABS: POTASSIUM 4.9 MEQ/L (3.5-5.1)
[2017-04-13 04:40] LABS: ALKALINE PHOSPHATASE 202 U/L (45-117); TOTAL BILIRUBIN ADULT 2.1 MG/DL (0.2-1.0)
[2017-04-13 04:58] LABS: AUTOMATED NEUTROPHIL # 3.8 TH/MM3 (1.8-7.7); BASOPHIL # 0.1 TH/MM3 (0-0.2); BASOPHIL % 1.2 % (0.0-2.0); EOSINOPHIL # 0.2 TH/MM3 (0-0.4); HEMATOCRIT 29.4 % (35.0-46.0); HEMO FLAGS DIFF FINAL; LYMPH % 16.9 % (9.0-44.0); MEAN CELL VOLUME 95.9 FL (80.0-100.0); MEAN CORPUSCULAR HEMOGLOBIN 31.8 PG (27.0-34.0); MEAN CORPUSCULAR HGB CONC 33.2 % (32.0-36.0); MONO % 14.1 % (0.0-8.0); NEUT % 63.8 % (16.0-70.0); PLATELET COUNT 132 TH/MM3 (150-450); RED BLOOD COUNT 3.06 MIL/MM3 (4.00-5.30); WHITE BLOOD COUNT 5.9 TH/MM3 (4.0-11.0)
[2017-04-13] MEDS ORDERED: NALOXONE HCL 0.4 MG/ML AMP IV PUSH PRN (06:30)
[2017-04-13] MEDS ORDERED: LACTULOSE SYRUP 20 GM/30 ML CUP PO ONE (06:30)
[2017-04-13] MEDS: SODIUM CHLORIDE 0.9% FLUSH 10 ML FLUSH IV FLUSH SCH ×2 (09:55→21:13)
[2017-04-13] MEDS ORDERED: LACTULOSE SYRUP 20 GM/30 ML CUP PO PRN (12:15)
--- NOTE | 2017-04-13 12:21 | HHI.HP ---
[facility] Service [facility] Primary Care Physician David Vo MD Admission Diagnosis Ileus; vomiting; cirrhosis Diagnoses: Travel History International Travel<30 Days: No Contact w/Intl Traveler <30 Da: No Traveled to Known Affected Are: No History of Present Illness Patient planning abdominal pain with nausea and vomiting. This is a recurrent issue. Patient has chronic intermittent ileus related to her chronic liver failure. She also has been noted to be hyponatremic and with elevated ammonia. This is chronic as well. She normally takes Zofran at home for her abdominal discomfort but noted that did not work and she came to the hospital. She was given IV Zofran and that seemed to improve her symptoms. She had any fevers or chills. She has had regular bowel movements and notes no bleeding. She is been recommended for observation due to uncontrolled vomiting. Forcefully at this time vomiting is controlled the patient will benefit from supportive care and observation and likely discharge in a.m. Review of Systems Constitutional: DENIES: Diaphoretic episodes, Fatigue, Fever, Weight gain, Weight loss, Chills, Dizziness, Change in appetite, Night Sweats Endocrine: DENIES: Abnorml menstrual pattern, Heat/cold intolerance, Polydipsia , Polyuria, Polyphagia Eyes: DENIES: Blurred vision, Diplopia, Eye inflammation, Eye pain, Vision loss , Photosensitivity, Double Vision Ears, nose, mouth, throat: DENIES: Tinnitus, Hearing loss, Vertigo, Nasal discharge, Oral lesions, Throat pain, Hoarseness, Ear Pain, Running Nose, Epistaxis, Sinus Pain, Toothache, Odynophagia Respiratory: DENIES: Apneas, Cough, Snoring, Wheezing, Hemoptysis, Sputum production, Shortness of breath Gastrointestinal: COMPLAINS OF: Nausea, Vomiting, DENIES: Abdominal pain, Black stools, Bloody stools, Constipation, Diarrhea, Difficulty Swallowing, Anorexia Genitourinary: DENIES: Abnormal vaginal bleeding, Dysmenorrhea, Dyspareunia, Sexual dysfunction, Urinary frequency, Urinary incontinence, Urgency, Hematuria , Dysuria, Nocturia, Vaginal discharge Musculoskeletal: DENIES: Joint pain, Muscle aches, Stiffness, Joint Swelling, Back pain, Neck pain Hematologic/lymphatic: DENIES: Bruising, Lymphadenopathy Immunologic/allergic: DENIES: Eczema, Urticaria Psychiatric: DENIES: Anxiety, Confusion, Mood changes, Depression, Hallucinations, Agitation, Suicidal Ideation, Homicidal Ideation, Delusions Except as stated in HPI: all other systems reviewed are Neg Past Family Social History Past Medical History Cirrhosis, hypothyroidism Chronic thrombocytopenia, chronic hyponatremia Past Surgical History Left hip Hernia repair Multiple endoscopies for bleeding ulcers and variceal bleeds Reported Medications Reviewed in the EMR Allergies: Coded Allergies: aspirin (Unverified Adverse Reaction, Severe, Bleeding, 04/13/17) codeine (Unverified Adverse Reaction, Severe, Vomiting, 04/13/17) morphine (Unverified Adverse Reaction, Severe, 04/13/17) Patient's states someone overdosed her on XR morphine nortriptyline (Unverified Adverse Reaction, Severe, Hallucinations, vomiting , 04/13/17) Active Ordered Medications Reviewed in the EMR Family History Adopted Social History , no alcohol or tobacco Physical Exam Vital Signs Vital Signs Date Time Temp Pulse Resp B/P (MAP) Pulse Ox O2 Delivery O2 Flow Rate FiO2 04/13/17 10:40 97.4 71 20 94/50 (65) 98 04/13/17 10:04 04/13/17 07:01 77 18 101/54 (70) 98 Room Air 04/13/17 06:34 79 16 99/51 (67) 98 Room Air 04/13/17 05:50 77 16 100/58 (72) 96 Room Air 04/13/17 04:46 83 18 104/59 (74) 98 Room Air 04/13/17 04:15 78 18 98/52 (67) 98 Room Air 04/13/17 03:15 98.6 80 16 96/51 (66) 98 Room Air 04/13/17 02:24 99.1 81 18 108/53 (71) 100 04/13/17 02:04 99.1 81 12 108/53 (71) 100 Physical Exam GENERAL: This is a well-nourished, well-developed patient, in no apparent distress. SKIN: No rashes, ecchymoses or lesions. Cool and dry. HEAD: Atraumatic. Normocephalic. No temporal or scalp tenderness. EYES: Pupils equal round and reactive. Extraocular motions intact. No scleral icterus. No injection or drainage. ENT: Nose without bleeding, purulent drainage or septal hematoma. Throat without erythema, tonsillar hypertrophy or exudate. Uvula midline. Airway patent. NECK: Trachea midline. No JVD or lymphadenopathy. Supple, nontender, no meningeal signs. CARDIOVASCULAR: Regular rate and rhythm without murmurs, gallops, or rubs. RESPIRATORY: Clear to auscultation. Breath sounds equal bilaterally. No wheezes , rales, or rhonchi. GASTROINTESTINAL: Abdomen soft, non-tender, minimally distended. No hepato- splenomegaly, or palpable masses. No guarding. MUSCULOSKELETAL: Extremities without clubbing, cyanosis, or edema. No joint tenderness, effusion, or edema noted. No calf tenderness. Negative Homans sign bilaterally. NEUROLOGICAL: Awake and alert. Cranial nerves II through XII intact. Motor and sensory grossly within normal limits. Five out of 5 muscle strength in all muscle groups. Normal speech. Laboratory Laboratory Tests Test 04/13/17 02:58 04/13/17 03:51 04/13/17 03:57 Urine Color DILAN Urine Turbidity CLEAR Urine pH 6.5 Urine Specific [place] 1.026 Urine Protein NEG Urine Glucose (UA) NEG Urine Ketones NEG Urine Occult Blood NEG Urine Nitrite NEG Urine Bilirubin NEG Urine Leukocyte Esterase NEG Urine WBC 0-2 Urine Squamous Epithelial Cells 6-8 Urine Hyaline Casts 15-19 Urine Mucus MOD Microscopic Urinalysis Comment CULT NOT INDICATED White Blood Count 5.9 Red Blood Count 3.06 Hemoglobin 9.7 Hematocrit 29.4 Mean Corpuscular Volume 95.9 Mean Corpuscular Hemoglobin 31.8 Mean Corpuscular Hemoglobin Concent 33.2 Red Cell Distribution Width 19.0 Platelet Count 132 Mean Platelet Volume 7.4 Neutrophils (%) (Auto) 63.8 Lymphocytes (%) (Auto) 16.9 Monocytes (%) (Auto) 14.1 Eosinophils (%) (Auto) 4.0 Basophils (%) (Auto) 1.2 Neutrophils # (Auto) 3.8 Lymphocytes # (Auto) 1.0 Monocytes # (Auto) 0.8 Eosinophils # (Auto) 0.2 Basophils # (Auto) 0.1 CBC Comment DIFF FINAL Differential Comment Prothrombin Time 14.7 Prothromb Time International Ratio 1.3 Activated Partial Thromboplast Time 30.4 Blood Urea Nitrogen 13 Creatinine 0.86 Random Glucose 112 Total Protein 7.5 Albumin 2.0 Calcium Level 7.6 Alkaline Phosphatase 202 Aspartate Amino Transf (AST/SGOT) 57 Alanine Aminotransferase (ALT/SGPT) 25 Total Bilirubin 2.1 Sodium Level 126 Potassium Level 4.9 Chloride Level 94 Carbon Dioxide Level 22.3 Anion Gap 10 Estimat Glomerular Filtration Rate 69 Ammonia 75 Lipase 210 Lactic Acid Level 1.8 Result Diagram: 04/13/17 0351 04/13/17 0351 Imaging Last Impressions Abdomen X-Ray 04/13/17 0000 Signed Impressions: Service Date/Time: Thursday, April 13, 2017 02:35 - CONCLUSION: 1. Findings compatible with colonic ileus. Babak Yi MD Assessment and Plan Problem List: (1) Hyponatremia ICD Code: E87.1 - Hypo-osmolality and hyponatremia Plan: Chronic and recurrent, likely volume related, we'll continue to follow closely (2) Nausea & vomiting ICD Code: R11.2 - Nausea with vomiting, unspecified Plan: Continue with antiemetics as needed for nausea (3) Ileus ICD Code: K56.7 - Ileus, unspecified Status: Acute Plan: Chronic since December, continue with supportive care Repeat abdominal x-rays have been done No indication to follow-up with CT at this time (4) Alcoholic cirrhosis of liver ICD Code: K70.30 - Alcoholic cirrhosis of liver without ascites Status: Acute Plan: Chronic, patient seen palliative care and the patient and her spouse wish to pursue aggressive care for possible transplant and they have an appointment coming soon (5) Hypothyroidism Status: Chronic (6) Hyperammonemia ICD Code: E72.20 - Hyperammonemia Status: Acute Plan: Continue lactulose, follow ammonia (7) Malnutrition ICD Code: E46 - Unspecified protein-calorie malnutrition Plan: Continue to support dietary choices and patient education Code Status Full code Discussed Condition With Patient, Vicente KURTZ Physician Certification 2 Midnight Certification Type: Admission for Inpatient Services Order for Inpatient Services The services are ordered in accordance with Medicare regulations or non- Medicare payer requirements, as applicable. In the case of services not specified as inpatient-only, they are appropriately provided as inpatient services in accordance with the 2-midnight benchmark. Estimated LOS (days): 2 2 days is the estimated time the patient will need to remain in the hospital, assuming treatment plan goals are met and no additional complications. Post-Hospital Plan: Caryn Bunch MD Apr 13, 2017 12:21
[2017-04-13] MEDS: MAGNESIUM OXIDE 400 MG TAB PO SCH (13:25)
[2017-04-13] MEDS: POTASSIUM CHLORIDE 10 MEQ CONTROLLED RELEASE TAB PO SCH (13:26)
[2017-04-13] MEDS: SPIRONOLACTONE 50 MG TAB PO SCH ×2 (13:26→18:00)
[2017-04-13] MEDS: PROMETHAZINE HCL 25 MG TAB PO PRN (13:26)
[2017-04-13] MEDS: RIFAXIMIN 550 MG TAB PO SCH ×2 (13:26→21:13)
[2017-04-13] MEDS: FUROSEMIDE 40 MG TAB PO SCH (13:26)
[2017-04-13] MEDS: LEVOTHYROXINE SODIUM 50 MCG TAB PO SCH (13:27)
[2017-04-13] MEDS: PANTOPRAZOLE SOD 40 MG DELAYED RELEASE TAB PO SCH (13:27)
[2017-04-13] MEDS: PROPRANOLOL HCL 10 MG TAB PO SCH ×2 (13:27→21:13)
[2017-04-14] VITALS: BP 93/52; PULSE 65; RESP 16; TEMP 98.2; O2SAT 97
[2017-04-14 05:51] LABS: AUTOMATED NEUTROPHIL # 2.3 TH/MM3 (1.8-7.7); BASOPHIL # 0.1 TH/MM3 (0-0.2); BASOPHIL % 1.5 % (0.0-2.0); EOSINOPHIL # 0.5 TH/MM3 (0-0.4); EOSINOPHIL % 9.4 % (0.0-4.0); HEMATOCRIT 30.8 % (35.0-46.0); HEMO FLAGS DIFF FINAL; LYMPH % 24.7 % (9.0-44.0); LYMPHOCYTE # 1.2 TH/MM3 (1.0-4.8); MEAN CELL VOLUME 96.5 FL (80.0-100.0); MEAN CORPUSCULAR HEMOGLOBIN 31.9 PG (27.0-34.0); NEUT % 50.4 % (16.0-70.0); PLATELET COUNT 112 TH/MM3 (150-450); RED BLOOD COUNT 3.19 MIL/MM3 (4.00-5.30); RED CELL DISTRIBUTION WIDTH 19.8 % (11.6-17.2); WHITE BLOOD COUNT 4.8 TH/MM3 (4.0-11.0)
[2017-04-14 05:58] LABS: POTASSIUM 4.2 MEQ/L (3.5-5.1)
[2017-04-14 06:05] LABS: BICARBONATE 23.6 MEQ/L (21.0-32.0)
[2017-04-14] MEDS: LEVOTHYROXINE SODIUM 50 MCG TAB PO SCH (06:06)
[2017-04-14 08:00] VITALS: BP 103/67; PULSE 58; RESP 16; TEMP 97.8; O2SAT 99
[2017-04-14] MEDS: FUROSEMIDE 40 MG TAB PO SCH (09:28)
[2017-04-14] MEDS: PANTOPRAZOLE SOD 40 MG DELAYED RELEASE TAB PO SCH (09:28)
[2017-04-14] MEDS: POTASSIUM CHLORIDE 10 MEQ CONTROLLED RELEASE TAB PO SCH (09:29)
[2017-04-14] MEDS: PROPRANOLOL HCL 10 MG TAB PO SCH (09:29)
[2017-04-14] MEDS: SODIUM CHLORIDE 0.9% FLUSH 10 ML FLUSH IV FLUSH SCH (09:29)
[2017-04-14] MEDS: SPIRONOLACTONE 50 MG TAB PO SCH (09:29)
[2017-04-14] MEDS: MAGNESIUM OXIDE 400 MG TAB PO SCH (09:29)
[2017-04-14] MEDS: PROMETHAZINE HCL 25 MG TAB PO PRN (09:29)
[2017-04-14] MEDS: RIFAXIMIN 550 MG TAB PO SCH (09:29)
--- NOTE | 2017-04-14 11:09 | HHI.DCPOC ---
Discharge Care Plan Diagnosis: (1) Hyperammonemia (2) Hyponatremia (3) Alcoholic cirrhosis of liver (4) Nausea & vomiting (5) Ileus Goals to Promote Your Health * To prevent worsening of your condition and complications * To maintain your health at the optimal level Directions to Meet Your Goals Take your medications as prescribed Follow your dietary instruction Follow activity as directed Keep your appointments as scheduled Take your immunizations and boosters as scheduled If your symptoms worsen call your PCP, if no PCP go to Urgent Care Center or Emergency Room Smoking is Dangerous to Your Health. Avoid second hand smoke Call the 24-hour hour crisis hotline for domestic abuse at Caryn Christie MD Apr 14, 2017 11:09
--- NOTE | 2017-04-14 11:11 | HHI.DS ---
Discharge Summary Admission Date Apr 13, 2017 at 12:21 Discharge Date: Apr 14, 2017 Admitting Diagnosis Ileus; vomiting; cirrhosis (1) Hyponatremia ICD Code: E87.1 - Hypo-osmolality and hyponatremia (2) Nausea & vomiting ICD Code: R11.2 - Nausea with vomiting, unspecified (3) Ileus ICD Code: K56.7 - Ileus, unspecified Status: Acute (4) Alcoholic cirrhosis of liver ICD Code: K70.30 - Alcoholic cirrhosis of liver without ascites Status: Acute (5) Hypothyroidism Status: Chronic (6) Hyperammonemia ICD Code: E72.20 - Hyperammonemia Status: Acute (7) Malnutrition ICD Code: E46 - Unspecified protein-calorie malnutrition Procedures none Brief History - From Admission Patient planning abdominal pain with nausea and vomiting. This is a recurrent issue. Patient has chronic intermittent ileus related to her chronic liver failure. She also has been noted to be hyponatremic and with elevated ammonia. This is chronic as well. She normally takes Zofran at home for her abdominal discomfort but noted that did not work and she came to the hospital. She was given IV Zofran and that seemed to improve her symptoms. She had any fevers or chills. She has had regular bowel movements and notes no bleeding. She is been recommended for observation due to uncontrolled vomiting. Forcefully at this time vomiting is controlled the patient will benefit from supportive care and observation and likely discharge in a.m. CBC/BMP: 04/14/17 0532 04/14/17 0532 Significant Findings Laboratory Tests Test 04/13/17 02:58 04/13/17 03:51 04/13/17 03:57 04/14/17 05:32 Urine Color DILAN (YELLW/STRAW) Urine Squamous Epithelial Cells 6-8 /hpf (0-5) Urine Hyaline Casts -19 /lpf (RARE) Urine Mucus MOD /lpf (OCC) Red Blood Count 3.06 MIL/MM3 (4.00-5.30) 3.19 MIL/MM3 (4.00-5.30) Hemoglobin 9.7 GM/DL (11.6-15.3) 10.2 GM/DL (11.6-15.3) Hematocrit 29.4 % (35.0-46.0) 30.8 % (35.0-46.0) Red Cell Distribution Width 19.0 % (11.6-17.2) 19.8 % (11.6-17.2) Platelet Count 132 TH/MM3 (150-450) 112 TH/MM3 (150-450) Monocytes (%) (Auto) 14.1 % (0.0-8.0) 14.0 % (0.0-8.0) Prothrombin Time 14.7 SEC (9.8-11.6) Activated Partial Thromboplast Time 30.4 SEC (24.3-30.1) Random Glucose 112 MG/DL (74-106) Albumin 2.0 GM/DL (3.4-5.0) Calcium Level 7.6 MG/DL (8.5-10.1) 7.9 MG/DL (8.5-10.1) Alkaline Phosphatase 202 U/L (45-117) Aspartate Amino Transf (AST/SGOT) 57 U/L (15-37) Total Bilirubin 2.1 MG/DL (0.2-1.0) Sodium Level 126 MEQ/L (136-145) 132 MEQ/L (136-145) Chloride Level 94 MEQ/L (98-107) Estimat Glomerular Filtration Rate 69 ML/MIN (>89) 68 ML/MIN (>89) Ammonia 75 MCMOL/L (11-32) 63 MCMOL/L (11-32) Eosinophils (%) (Auto) 9.4 % (0.0-4.0) Eosinophils # (Auto) 0.5 TH/MM3 (0-0.4) Imaging Last Impressions Abdomen X-Ray 04/13/17 0000 Signed Impressions: Service Date/Time: Thursday, April 13, 2017 02:35 - CONCLUSION: 1. Findings compatible with colonic ileus. Babak Yi MD PE at Discharge Submandibular lipoma GENERAL: This is a well-nourished, well-developed patient, in no apparent distress. CARDIOVASCULAR: Regular rate and rhythm without murmurs, gallops, or rubs. RESPIRATORY: Clear to auscultation. Breath sounds equal bilaterally. No wheezes , rales, or rhonchi. GASTROINTESTINAL: Abdomen soft, non-tender, nondistended. Normal active bowel sounds MUSCULOSKELETAL: Extremities without clubbing, cyanosis, or edema. NEURO: Alert & Oriented x4 to person, place, time, situation. Moves all ext x4 Pt update on day of discharge Today patient is up and ambulatory. No complaints. Tolerating diet and no nausea. Discharge plans discussed with patient and with case management Hospital Course Patient has been seen and evaluated in follow-up for abdominal discomfort with vomiting. Patient has chronic ileus which is adynamic and has been present at least since December. Patient tolerating diet, bowels are moving. Ammonia is improved with lactulose, hyponatremia is improved with IV hydration. Her nausea is improved and she will benefit from her evaluation by the hepatology team in [facility]. Patient has been advised worrisome symptoms and when to return to the hospital. Pt Condition on Discharge: Fair Discharge Disposition: Discharge Home Discharge Time: <= 30 minutes Discharge Instructions DIET: Follow Instructions for: Heart Healthy Diet Activities you can perform: Regular-No Restrictions Follow up Referrals: Surgical - 05/02/17 with [facility] Continued Medications: Furosemide (Furosemide) 40 Mg Tab 40 MG PO DAILY, #30 TAB 0 Refills Lactulose Liq (Lactulose Liq) 10 Gm/15 Ml Soln 30 ML PO BID PRN for titrate to 3-4 bm, ML 0 Refills Levothyroxine (Levothyroxine) 50 Mcg Tab 50 MCG PO DAILY for Thyroid, #30 TAB 0 Refills Magnesium Oxide (Magnesium Oxide) 400 Mg Tab 400 MG PO DAILY for Nutritional Supplement for 30 Days, TAB 0 Refills Ondansetron Odt (Ondansetron Odt) 4 Mg Tab 4 MG SL Q6HR PRN for Nausea/Vomiting, #28 TAB 0 Refills Ondansetron Odt (Zofran Odt) 4 Mg Tab 4 MG SL Q8HR PRN for Nausea/Vomiting, #30 TAB 0 Refills Oxycodone (Roxicodone) 5 Mg Tab 5 MG PO Q8HR for Pain Management, #20 TAB 0 Refills USE SPARRINGLY POSSIBLE Pantoprazole (Pantoprazole) 40 Mg Tab 40 MG PO DAILY for Reflux, #30 TAB 0 Refills Potassium Chloride ER (Potassium Chloride ER) 10 Meq Tab 10 MEQ PO DAILY for Electrolyte Replacement, #30 TAB 0 Refills Promethazine (Phenergan) 25 Mg Tablet 25 MG PO Q6H PRN for NAUSEA OR VOMITING, #15 TAB 0 Refills Propranolol (Propranolol) 10 Mg Tab 10 MG PO Q12HR, #60 TAB 0 Refills Rifaximin (Xifaxan) 550 Mg Tab 550 MG PO BID for Liver, #60 TAB Spironolactone (Spironolactone) 50 Mg Tab 50 MG PO BIDPC for fluid retention, #60 TAB 0 Refills Caryn Christie MD Apr 14, 2017 11:11
== END 2017-04-14 11:53 | disposition home or self-care (01) | DRG 389 ==
LOC: PHED 01:56 → PHEDA 06:22 → PH3B 10:09 → OBSVTOIN 12:21
PROVIDERS: ADMIT Hospitalist; ATTEND Hospitalist
DX: K56.0 Paralytic ileus (principal); E87.1 Hypo-osmolality and hyponatremia; E46 Unspecified protein-calorie malnutrition; K70.31 Alcoholic cirrhosis of liver with ascites; Z68.1 Body mass index [BMI] 19.9 or less, adult; E03.9 Hypothyroidism, unspecified; Z51.5 Encounter for palliative care
CPT/HCPCS: 74020; 80048; 80053; 81001; 82140; 83605; 83690; 85025; 85610; 85730; J2405; Q0169

== ENCOUNTER 2017-04-26 14:51 | Observation (INO) | payer MEDICAID ==
[~2017-04-26] VITALS: Ht 162.6 cm; Wt 50.7 kg
[2017-04-26 14:55] VITALS: BP 101/69; PULSE 74; RESP 16; TEMP 97.4; O2SAT 100
[2017-04-26] MEDS ORDERED: SODIUM CHLOR 0.9% 1000 ML INJ 1,000 ML IV ONE ×2 (15:30)
--- NOTE | 2017-04-26 16:01 | RADRPT ---
EXAM DATE/TIME: 04/26/2017 15:34 [place] COMPARISON: CHEST SINGLE AP, April 10, 2017, 11:20. INDICATIONS : Cold symptoms. MEDICAL HISTORY : Hypothyroidism. Arthritis. Cirrhosis. Confusion. Asthma. Anorexia. SURGICAL HISTORY : Cholecystectomy. Umbilical hernia repair. Esophageal banding. Left hip ENCOUNTER: Initial ACUITY: 3 weeks PAIN SCORE: 0/10 LOCATION: Bilateral chest FINDINGS: A single view of the chest demonstrates the lungs to be symmetrically aerated without evidence of mas s, infiltrate or effusion. The cardiomediastinal contours are unremarkable. Osseous structures are intact. CONCLUSION: No acute disease. There is no evidence of pneumonia. Calvin Collins MD on April 26, 2017 at 15:59 Board Certified Radiologist. This report was verified electronically.
[2017-04-26 16:07] LABS: AUTOMATED NEUTROPHIL # 2.8 TH/MM3 (1.8-7.7); BASOPHIL % 0.7 % (0.0-2.0); EOSINOPHIL # 0.2 TH/MM3 (0-0.4); EOSINOPHIL % 4.5 % (0.0-4.0); HEMATOCRIT 27.3 % (35.0-46.0); HEMOGLOBIN 9.3 GM/DL (11.6-15.3); LYMPH % 21.9 % (9.0-44.0); MEAN CELL VOLUME 97.6 FL (80.0-100.0); MEAN CORPUSCULAR HEMOGLOBIN 33.1 PG (27.0-34.0); MEAN CORPUSCULAR HGB CONC 33.9 % (32.0-36.0); MEAN PLATELET VOLUME 7.1 FL (7.0-11.0); MONOCYTE # 0.4 TH/MM3 (0-0.9); NEUT % 62.9 % (16.0-70.0); PLATELET COUNT 102 TH/MM3 (150-450); RED CELL DISTRIBUTION WIDTH 18.8 % (11.6-17.2); WHITE BLOOD COUNT 4.4 TH/MM3 (4.0-11.0)
[2017-04-26 16:10] LABS: CHLORIDE 100 MEQ/L (98-107); SODIUM (NA) 130 MEQ/L (136-145)
[2017-04-26 16:14] LABS: BICARBONATE 18.5 MEQ/L (21.0-32.0); BLOOD UREA NITROGEN 11 MG/DL (7-18); CALCIUM 7.6 MG/DL (8.5-10.1); GLUCOSE,RANDOM 128 MG/DL (74-106); LIPASE 166 U/L (73-393); MAGNESIUM 2.1 MG/DL (1.5-2.5)
[2017-04-26 16:15] LABS: INTERNATIONAL NORMALIZED RATIO 1.3 RATIO; PROTHROMBIN TIME - PATIENT 14.3 SEC (9.8-11.6)
[2017-04-26 16:17] LABS: ALT (GPT) 33 U/L (10-53); AST (GOT) 49 U/L (15-37); CREATININE 0.88 MG/DL (0.50-1.00); GLOMERULAR FILTRATION RATE 67 ML/MIN (>89)
[2017-04-26 16:19] LABS: TOTAL BILIRUBIN ADULT 2.4 MG/DL (0.2-1.0); TOTAL PROTEIN 7.4 GM/DL (6.4-8.2)
[2017-04-26 16:20] LABS: ALKALINE PHOSPHATASE 246 U/L (45-117)
--- NOTE | 2017-04-26 16:21 | PD ---
HPI Chief Complaint: Cold / Flu Symptoms Time Seen by Provider: 15:24 Travel History International Travel<30 days: No Contact w/Intl Traveler<30days: No Traveled to known affect area: No History of Present Illness HPI This 52-year-old female is brought by her because of increasing lethargy. She has a history of hepatic encephalopathy and cirrhosis. Her cirrhosis and apparently secondary to alcohol abuse that she has not drank in years. He has been on lactulose. She has had a gradual deterioration over the last few days. He is not aware of fever or chills. There is been no vomiting or diarrhea PFSH Past Medical History Hx Anticoagulant Therapy: No Arthritis: Yes Asthma: Yes Autoimmune Disease: No Anxiety: Yes Depression: Yes Heart Rhythm Problems: No Cancer: No Cardiovascular Problems: No High Cholesterol: No Chemotherapy: No Chest Pain: No Congestive Heart Failure: No Cirrhosis: Yes (End stage ) COPD: No Cerebrovascular Accident: No Diabetes: No Diminished Hearing: No Endocrine: Yes Gastrointestinal Disorders: Yes (Upper GIB, varices, bleeding ulcers ) GERD: No Genitourinary: No Headaches: No Hepatitis: Yes (Alcoholic ) Hiatal Hernia: Yes Heparin Induced Thrombocytopen: No Hypertension: No Immune Disorder: No Implanted Vascular Access Dvce: No Kidney Stones: No Medical other: Yes (ESOPHAGEAL VARICES; LIVER CIRRHOSIS; THROMBOCYTOPENIA ;) Musculoskeletal: Yes (neck is "puffy" pt states "its puffy cause i have a endocrine problem") Neurologic: No Psychiatric: Yes Reproductive: No Respiratory: No Immunizations Current: Yes Migraines: No Radiation Therapy: No Renal Failure: No Seizures: No Sickle Cell Disease: No Sleep Apnea: No Thyroid Disease: Yes (Hypothyroidism) Ulcer: No Tetanus Vaccination: > 5 Years Influenza Vaccination: Yes ?: Not Menopausal: Yes Past Surgical History Abdominal Surgery: Yes (Umb. hernia repair ) AICD: No Body Medical Devices: NONE Cardiac Surgery: No Cholecystectomy: Yes (2006) Ear Surgery: No Endocrine Surgery: No Eye Surgery: No Genitourinary Surgery: No Gynecologic Surgery: No Hysterectomy: No Insulin Pump: No Joint Replacement: Yes (Lt. hip) Neurologic Surgery: No Oral Surgery: No Pacemaker: No Thoracic Surgery: No Other Surgery: Yes (Cholecystectomy) Social History Alcohol Use: No (H/O alcoholism ) Tobacco Use: No Substance Use: No Allergies-Medications (Allergen,Severity, Reaction): Coded Allergies: aspirin (Unverified Adverse Reaction, Severe, Bleeding, 04/26/17) codeine (Unverified Adverse Reaction, Severe, Vomiting, 04/26/17) morphine (Unverified Adverse Reaction, Severe, 04/26/17) Patient's states someone overdosed her on XR morphine nortriptyline (Unverified Adverse Reaction, Severe, Hallucinations, vomiting , 04/26/17) Reported Meds & Prescriptions Reported Meds & Active Scripts Active Zofran Odt (Ondansetron Odt) 4 Mg Tab 4 Mg SL Q8HR PRN Spironolactone 50 Mg Tab 50 Mg PO BIDPC Potassium Chloride ER (Potassium Chloride) 10 Meq Tab 10 Meq PO DAILY Magnesium Oxide 400 Mg Tab 400 Mg PO DAILY 30 Days Levothyroxine (Levothyroxine Sodium) 50 Mcg Tab 50 Mcg PO DAILY Xifaxan (Rifaximin) 550 Mg Tab 550 Mg PO BID Reported Propranolol (Propranolol HCl) 10 Mg Tab 10 Mg PO Q12HR Lactulose Liq (Lactulose) 10 Gm/15 Ml Soln 30 Ml PO BID PRN Pantoprazole (Pantoprazole Sodium) 40 Mg Tab 40 Mg PO DAILY Furosemide 40 Mg Tab 40 Mg PO DAILY Review of Systems General / Constitutional: No: Fever, Chills Eyes: No: Diploplia, Blurred Vision HENT: No: Headaches, Vertigo Cardiovascular: No: Chest Pain or Discomfort, Palpitations Respiratory: No: Shortness of Breath Gastrointestinal: Positive: Loss of Appetite, No: Nausea, Vomiting Genitourinary: No: Frequency, Dysuria Skin: No Rash Neurologic: Positive: Weakness Psychiatric: No: Anxiety Physical Exam Narrative GENERAL: Chronically ill-appearing female SKIN: Focused skin assessment warm/dry. HEAD: Atraumatic. Normocephalic. EYES: Pupils equal and round. No scleral icterus. No injection or drainage. ENT: No nasal bleeding or discharge. Mucous membranes pink and moist. NECK: Trachea midline. No JVD. CARDIOVASCULAR: Regular rate and rhythm. No murmur appreciated. RESPIRATORY: No accessory muscle use. Clear to auscultation. Breath sounds equal bilaterally. GASTROINTESTINAL: Abdomen soft, non-tender, nondistended. Hepatic and splenic margins not palpable. MUSCULOSKELETAL: No obvious deformities. No clubbing. No cyanosis. No edema. NEUROLOGICAL: Somewhat lethargic but she wakes easily. Pupils are round and reactive. Ribs are equal. She does have asterixis Data Data Last Documented VS Vital Signs Date Time Temp Pulse Resp B/P (MAP) Pulse Ox O2 Delivery O2 Flow Rate FiO2 04/26/17 15:12 100 Aerosol Mask 04/26/17 14:55 97.4 74 16 101/69 (80) Orders Orders Complete Blood Count With Diff (04/26/17 15:24) Comprehensive Metabolic Panel (04/26/17:24) Prothrombin Time / Inr (Pt) (04/26/17 15:24) Act Partial Throm Time (Ptt) (04/26/17:24) Lipase (04/26/17:24) Urinalysis - C+S If Indicated (04/26/17:24) Magnesium (Mg) (04/26/17 15:24) Ammonia (04/26/17:24) Chest, Single Ap (04/26/17 15:24) Sodium Chlor 0.9% 1000 Ml Inj (Ns 1000 M (04/26/17 15:30) Labs Laboratory Tests Test 04/26/17 15:55 White Blood Count 4.4 TH/MM3 Red Blood Count 2.80 MIL/MM3 Hemoglobin 9.3 GM/DL Hematocrit 27.3 % Mean Corpuscular Volume 97.6 FL Mean Corpuscular Hemoglobin 33.1 PG Mean Corpuscular Hemoglobin Concent 33.9 % Red Cell Distribution Width 18.8 % Platelet Count 102 TH/MM3 Mean Platelet Volume 7.1 FL Neutrophils (%) (Auto) 62.9 % Lymphocytes (%) (Auto) 21.9 % Monocytes (%) (Auto) 10.0 % Eosinophils (%) (Auto) 4.5 % Basophils (%) (Auto) 0.7 % Neutrophils # (Auto) 2.8 TH/MM3 Lymphocytes # (Auto) 1.0 TH/MM3 Monocytes # (Auto) 0.4 TH/MM3 Eosinophils # (Auto) 0.2 TH/MM3 Basophils # (Auto) 0.0 TH/MM3 CBC Comment DIFF FINAL Differential Comment Prothrombin Time 14.3 SEC Prothromb Time International Ratio 1.3 RATIO Activated Partial Thromboplast Time 32.3 SEC Blood Urea Nitrogen 11 MG/DL Creatinine 0.88 MG/DL Random Glucose 128 MG/DL Total Protein 7.4 GM/DL Albumin 2.0 GM/DL Calcium Level 7.6 MG/DL Magnesium Level 2.1 MG/DL Alkaline Phosphatase 246 U/L Aspartate Amino Transf (AST/SGOT) 49 U/L Alanine Aminotransferase (ALT/SGPT) 33 U/L Total Bilirubin 2.4 MG/DL Sodium Level 130 MEQ/L Potassium Level 4.0 MEQ/L Chloride Level 100 MEQ/L Carbon Dioxide Level 18.5 MEQ/L Anion Gap 12 MEQ/L Estimat Glomerular Filtration Rate 67 ML/MIN Lipase 166 U/L [facility] Medical Decision Making Medical Screen Exam Complete: Yes Emergency Medical Condition: Yes Medical Record Reviewed: Yes Differential Diagnosis Differential includes hepatic encephalopathy, metabolic disturbance Narrative Course Lab work is pending and disposition will be determined d by oncoming physician Flaco Torres MD Apr 26, 2017 16:21
[2017-04-26 16:45] VITALS: BP 90/54; PULSE 78; RESP 16; O2SAT 100
--- NOTE | 2017-04-26 16:59 | PD ---
Data Data Last Documented VS Vital Signs Date Time Temp Pulse Resp B/P (MAP) Pulse Ox O2 Delivery O2 Flow Rate FiO2 04/26/17 16:45 78 16 90/54 (66) 100 Room Air 04/26/17 14:55 97.4 Orders Orders Complete Blood Count With Diff (04/26/17 15:24) Comprehensive Metabolic Panel (04/26/17 15:24) Prothrombin Time / Inr (Pt) (04/26/17 15:24) Act Partial Throm Time (Ptt) (04/26/17 15:24) Lipase (04/26/17 15:24) Urinalysis - C+S If Indicated (04/26/17 15:24) Magnesium (Mg) (04/26/17 15:24) Ammonia (04/26/17 15:24) Chest, Single Ap (04/26/17 15:24) Sodium Chlor 0.9% 1000 Ml Inj (Ns 1000 M (04/26/17 15:30) Lactulose Liq (Lactulose Liq) (04/26/17 17:00) Labs Laboratory Tests Test 04/26/17 15:55 White Blood Count 4.4 TH/MM3 Red Blood Count 2.80 MIL/MM3 Hemoglobin 9.3 GM/DL Hematocrit 27.3 % Mean Corpuscular Volume 97.6 FL Mean Corpuscular Hemoglobin 33.1 PG Mean Corpuscular Hemoglobin Concent 33.9 % Red Cell Distribution Width 18.8 % Platelet Count 102 TH/MM3 Mean Platelet Volume 7.1 FL Neutrophils (%) (Auto) 62.9 % Lymphocytes (%) (Auto) 21.9 % Monocytes (%) (Auto) 10.0 % Eosinophils (%) (Auto) 4.5 % Basophils (%) (Auto) 0.7 % Neutrophils # (Auto) 2.8 TH/MM3 Lymphocytes # (Auto) 1.0 TH/MM3 Monocytes # (Auto) 0.4 TH/MM3 Eosinophils # (Auto) 0.2 TH/MM3 Basophils # (Auto) 0.0 TH/MM3 CBC Comment DIFF FINAL Differential Comment Prothrombin Time 14.3 SEC Prothromb Time International Ratio 1.3 RATIO Activated Partial Thromboplast Time 32.3 SEC Blood Urea Nitrogen 11 MG/DL Creatinine 0.88 MG/DL Random Glucose 128 MG/DL Total Protein 7.4 GM/DL Albumin 2.0 GM/DL Calcium Level 7.6 MG/DL Magnesium Level 2.1 MG/DL Alkaline Phosphatase 246 U/L Aspartate Amino Transf (AST/SGOT) 49 U/L Alanine Aminotransferase (ALT/SGPT) 33 U/L Total Bilirubin 2.4 MG/DL Sodium Level 130 MEQ/L Potassium Level 4.0 MEQ/L Chloride Level 100 MEQ/L Carbon Dioxide Level 18.5 MEQ/L Anion Gap 12 MEQ/L Estimat Glomerular Filtration Rate 67 ML/MIN Ammonia 95 MCMOL/L Lipase 166 U/L [facility] Supervised Visit with SHALA: No Narrative Course The patient was initially evaluated by the previous provider and sent out to me at the beginning of my shift pending labs and disposition. See his note for further details. Briefly this is a 52-year-old female with history of cirrhosis, hepatic encephalopathy, on lactulose and Xifaxan, here for evaluation of increasing lethargy. On exam the patient is sleepy but easily arousable. She is somewhat confused, however is oriented to person and place. No focal deficits on exam. Labs are remarkable for an ammonia level of 95. She will be given a dose of lactulose and admitted for further treatment and evaluation of hepatic encephalopathy. Case discussed with hospitalist Dr. Christie who will admit the patient to her service. Diagnosis Primary Impression: Hepatic encephalopathy Admitting Information Admitting Physician Requests: Admit Fercho Kwon MD Apr 26, 2017 16:59
[2017-04-26] MEDS ORDERED: LACTULOSE SYRUP 20 GM/30 ML CUP PO ONE ×2 (17:00)
[2017-04-26] MEDS: SODIUM CHLOR 0.9% 1000 ML INJ 1,000 ML IV SCH ×2 (17:11)
[2017-04-26] MEDS ORDERED: NALOXONE HCL 0.4 MG/ML AMP IV PUSH PRN ×2 (17:15)
[2017-04-26] MEDS ORDERED: SODIUM CHLORID 0.9% 500 ML INJ 500 ML IV ONE ×2 (17:15)
[2017-04-26] MEDS ORDERED: ONDANSETRON HCL 4 MG/2 ML VIAL IVP PRN ×2 (17:15)
[2017-04-26] MEDS ORDERED: SODIUM CHLORIDE 0.9% FLUSH 10 ML FLUSH IV FLUSH PRN ×2 (17:15)
--- NOTE | 2017-04-26 17:25 | HHI.HP ---
[facility] David Vo MD Admission Diagnosis Hepatic encephalopathy Diagnoses: (1) Metabolic encephalopathy Chief Complaint: Increasing lethargy and confusion Travel History International Travel<30 Days: No Contact w/Intl Traveler <30 Da: No Traveled to Known Affected Are: No History of Present Illness Written by Vicki Renee, acting as scribe for Dr. Christie on 04/26/17 at 17:11. Mrs. Santamaria is a 52-year-old female patient with a known medical history of chronic liver failure who presented to the ED with complaints of increasing lethargy and confusion. Patient seen in ED with at bedside. Patient has had increased confusion and lethargy for the past two days. Her labs show elevated ammonia and hyponatremia upon presentation. Denies any changes in medications. Denies any recent headache, dizziness or lightheadedness. Denies any recent fever, chills, cough, shortness of breath, abdominal pain, n/v or dysuria. Has been moving bowels, denies diarrhea or hematozemia. Last paracentesis was 5 weeks ago, denies any worsening ascites or swelling. states that patient has been loosing roughly 1 pound per day despite eating and drinking well. Patient does have a scheduled appointment with the transplant team at [facility] on May 02 to discuss possibility of liver transplant. Review of Systems Constitutional: DENIES: Fever, Chills, Dizziness Eyes: DENIES: Blurred vision, Vision loss Respiratory: COMPLAINS OF: Apneas, DENIES: Cough, Shortness of breath Cardiovascular: DENIES: Chest pain, Palpitations Gastrointestinal: DENIES: Abdominal pain, Bloody stools, Constipation, Diarrhea , Nausea, Vomiting Psychiatric: COMPLAINS OF: Anxiety, Confusion Except as stated in HPI: all other systems reviewed are Neg Past Family Social History Past Medical History Cirrhosis, hypothyroidism Chronic thrombocytopenia, chronic hyponatremia Past Surgical History Left hip Hernia repair Multiple endoscopies for bleeding ulcers and variceal bleeds Reported Medications Active Zofran Odt (Ondansetron Odt) 4 Mg Tab 4 Mg SL Q8HR PRN Spironolactone 50 Mg Tab 50 Mg PO BIDPC Potassium Chloride ER (Potassium Chloride) 10 Meq Tab 10 Meq PO DAILY Magnesium Oxide 400 Mg Tab 400 Mg PO DAILY 30 Days Levothyroxine (Levothyroxine Sodium) 50 Mcg Tab 50 Mcg PO DAILY Xifaxan (Rifaximin) 550 Mg Tab 550 Mg PO BID Reported Propranolol (Propranolol HCl) 10 Mg Tab 10 Mg PO Q12HR Lactulose Liq (Lactulose) 10 Gm/15 Ml Soln 30 Ml PO BID PRN Pantoprazole (Pantoprazole Sodium) 40 Mg Tab 40 Mg PO DAILY Furosemide 40 Mg Tab 40 Mg PO DAILY Allergies: Coded Allergies: aspirin (Unverified Adverse Reaction, Severe, Bleeding, 04/26/17) codeine (Unverified Adverse Reaction, Severe, Vomiting, 04/26/17) morphine (Unverified Adverse Reaction, Severe, 04/26/17) Patient's states someone overdosed her on XR morphine nortriptyline (Unverified Adverse Reaction, Severe, Hallucinations, vomiting , 04/26/17) Active Ordered Medications Current Medications Medications (Trade) Dose Ordered Sig/Ángela Route Start Time Stop Time Status Last Admin Sodium Chloride 1,000 ml @ 125 mls/hr Q8H ONCE IV 04/26/17 15:30 04/26/17 23:29 04/26/17 15:33 Family History Denies any significant family medical history, adopted. Social History Denies any current tobacco or alcohol use. Physical Exam Vital Signs Vital Signs Date Time Temp Pulse Resp B/P (MAP) Pulse Ox O2 Delivery O2 Flow Rate FiO2 04/26/17 16:45 78 16 90/54 (66) 100 Room Air 04/26/17 15:12 100 Aerosol Mask 04/26/17 14:55 97.4 74 16 101/69 (80) 100 Physical Exam GENERAL: This is a well-nourished, well-developed female patient, in no apparent distress. SKIN: No rashes or lesions. Warm and dry. HEENT: Atraumatic. Normocephalic. Pupils equal round and reactive. Extraocular motions intact. No scleral icterus. No injection or drainage. Nose without bleeding, purulent drainage or septal hematoma. Throat without erythema, tonsillar hypertrophy or exudate. Uvula midline. Airway patent. NECK: Trachea midline. No JVD or lymphadenopathy. Chronic lymphoma noted. CARDIOVASCULAR: Regular rate and rhythm without murmurs, gallops, or rubs. RESPIRATORY: Clear to auscultation. Breath sounds equal bilaterally. No wheezes , rales, or rhonchi. GASTROINTESTINAL: Abdomen soft, non-tender, non-distended. No guarding. MUSCULOSKELETAL: Extremities without clubbing, cyanosis, or edema. No joint tenderness, effusion, or edema noted. NEUROLOGICAL: Awake and alert. Cranial nerves II through XII intact. Motor and sensory grossly within normal limits. Five out of 5 muscle strength in all muscle groups. Normal speech. Laboratory Laboratory Tests Test 04/26/17 15:55 White Blood Count 4.4 Red Blood Count 2.80 Hemoglobin 9.3 Hematocrit 27.3 Mean Corpuscular Volume 97.6 Mean Corpuscular Hemoglobin 33.1 Mean Corpuscular Hemoglobin Concent 33.9 Red Cell Distribution Width 18.8 Platelet Count 102 Mean Platelet Volume 7.1 Neutrophils (%) (Auto) 62.9 Lymphocytes (%) (Auto) 21.9 Monocytes (%) (Auto) 10.0 Eosinophils (%) (Auto) 4.5 Basophils (%) (Auto) 0.7 Neutrophils # (Auto) 2.8 Lymphocytes # (Auto) 1.0 Monocytes # (Auto) 0.4 Eosinophils # (Auto) 0.2 Basophils # (Auto) 0.0 CBC Comment DIFF FINAL Differential Comment Prothrombin Time 14.3 Prothromb Time International Ratio 1.3 Activated Partial Thromboplast Time 32.3 Blood Urea Nitrogen 11 Creatinine 0.88 Random Glucose 128 Total Protein 7.4 Albumin 2.0 Calcium Level 7.6 Magnesium Level 2.1 Alkaline Phosphatase 246 Aspartate Amino Transf (AST/SGOT) 49 Alanine Aminotransferase (ALT/SGPT) 33 Total Bilirubin 2.4 Sodium Level 130 Potassium Level 4.0 Chloride Level 100 Carbon Dioxide Level 18.5 Anion Gap 12 Estimat Glomerular Filtration Rate 67 Ammonia 95 Lipase 166 Result Diagram: 04/26/17 1555 04/26/17 1555 Imaging Last Impressions Chest X-Ray 04/26/17 1524 Signed Impressions: Service Date/Time: Wednesday, April 26, 2017 15:34 - CONCLUSION: No acute disease. There is no evidence of pneumonia. MD Margareth Jacques VTE Risk Assessment Caprini VTE Risk Assessment: No/Low Risk (score <= 1) Caprini Risk Assessment Model Point Value = 1 Point Value = 2 Point Value = 3 Point Value = 5 Age 41-60 Minor surgery BMI > 25 kg/m2 Swollen legs Varicose veins or History of unexplained or recurrent spontaneous Oral contraceptives or hormone replacement Sepsis (< 1 month) Serious lung disease, including pneumonia (< 1 month) Abnormal pulmonary function Acute myocardial infarction Congestive heart failure (< 1 month) History of inflammatory bowel disease Medical patient at bed rest Age 61-74 Arthroscopic surgery Major open surgery (> 45 min) Laparoscopic surgery (> 45 min) Malignancy Confined to bed (> 72 hours) Immobilizing plaster cast Central venous access Age >= 75 History of VTE Family history of VTE Factor V Leiden Prothrombin [id number] Lupus anticoagulant Anticardiolipin antibodies Elevated serum homocysteine Heparin-induced thrombocytopenia Other congenital or acquired thrombophilia Stroke (< 1 month) Elective arthroplasty Hip, pelvis, or leg fracture Acute spinal cord injury (< 1 month) Prophylaxis Regimen Total Risk Factor Score Risk Level Prophylaxis Regimen 0-1 Low Early ambulation 2 Moderate Order ONE of the following: *Sequential Compression Device (SCD) *Heparin 5000 units SQ BID 3-4 Higher Order ONE of the following medications: *Heparin 5000 units SQ TID *Enoxaparin/Lovenox 40 mg SQ daily (WT < 150 kg, CrCl > 30 mL/min) *Enoxaparin/Lovenox 30 mg SQ daily (WT < 150 kg, CrCl > 10-29 mL/min) *Enoxaparin/Lovenox 30 mg SQ BID (WT < 150 kg, CrCl > 30 mL/min) AND/OR *Sequential Compression Device (SCD) 5 or more Highest Order ONE of the following medications: *Heparin 5000 units SQ TID (Preferred with Epidurals) *Enoxaparin/Lovenox 40 mg SQ daily (WT < 150 kg, CrCl > 30 mL/min) *Enoxaparin/Lovenox 30 mg SQ daily (WT < 150 kg, CrCl > 10-29 mL/min) *Enoxaparin/Lovenox 30 mg SQ BID (WT < 150 kg, CrCl > 30 mL/min) AND *Sequential Compression Device (SCD) Assessment and Plan Problem List: (1) Metabolic encephalopathy ICD Code: G93.41 - Metabolic encephalopathy Status: Acute Plan: Suspect secondary to hyperammonemia. Continue neuro checks. Repeat labs in am. Consult dietary for recommendations to maintain weight, appreciate input. (2) Alcoholic cirrhosis of liver ICD Code: K70.30 - Alcoholic cirrhosis of liver without ascites Status: Acute Plan: Chronic, patient and continue to desire aggressive care for possible transplant. Planned appointment for May.02 at [facility]. Continue home Rifaximin. (3) Hyperammonemia ICD Code: E72.20 - Hyperammonemia Status: Acute Plan: Place on Lactulose scheduled 30 ml q6hr. Follow ammonia levels. (4) Hyponatremia ICD Code: E87.1 - Hypo-osmolality and hyponatremia Status: Acute Plan: Chronic and recurrent, likely volume related, will continue to follow closely. Continue IV Fluids hold diuretics (5) Malnutrition ICD Code: E46 - Unspecified protein-calorie malnutrition Plan: Consult dietary regarding recommendations for maintaining weight. Continue to support dietary choices and patient education. (6) Hypothyroidism Status: Chronic Plan: Continue home Levothyroxine. Code Status Full code. Discussed Condition With ED physician. Medical Decision Making Impression and Plan This note was transcribed by tushar [Joseph]. I, Dr. Caryn Christie personally performed the history, physical exam, and medical decision making; and confirmed the accuracy of the information in the transcribed note. agree with above Authenticated by Dr. Caryn Christie on 04/26/17 at 17:51. Problem Qualifiers (1) Alcoholic cirrhosis of liver: Qualified Codes: K70.30 - Alcoholic cirrhosis of liver without ascites (2) Malnutrition: Qualified Codes: E44.0 - Moderate protein-calorie malnutrition Vicki Renee Apr 26, 2017 17:25 Caryn Christie MD Apr 26, 2017 17:52
[2017-04-26] MEDS: LACTULOSE SYRUP 20 GM/30 ML CUP PO SCH ×2 (17:32)
[2017-04-26 17:57] VITALS: BP 101/54; PULSE 75; RESP 16; O2SAT 100
[2017-04-26 20:00] VITALS: BP 96/51; PULSE 84; RESP 20; TEMP 98.4; O2SAT 100
[2017-04-26] MEDS: SODIUM CHLORIDE 0.9% FLUSH 10 ML FLUSH IV FLUSH SCH ×2 (20:38)
[2017-04-26] MEDS: RIFAXIMIN 550 MG TAB PO SCH ×2 (20:39)
[2017-04-26 23:55] VITALS: O2SAT 99
[2017-04-27] VITALS: BP 104/60; PULSE 83; RESP 20; TEMP 98.5; O2SAT 99
[2017-04-27] MEDS: LACTULOSE SYRUP 20 GM/30 ML CUP PO SCH ×6 (00:06→11:57)
[2017-04-27] MEDS: SODIUM CHLOR 0.9% 1000 ML INJ 1,000 ML IV SCH ×8 (03:24→14:38)
[2017-04-27 04:30] LABS: BILIRUBIN, URINE NEG (NEG); BLOOD, URINE NEG (NEG); GLUCOSE,URINE NEG (NEG); KETONE, URINE NEG (NEG); NITRITE,URINE NEG (NEG); URINE LEUKOCYTE ESTERASE NEG (NEG)
[2017-04-27 05:00] LABS: URINE COLOR AMBER (YELLW/STRAW)
[2017-04-27 05:02] LABS: MUCUS URINE OCC /lpf (OCC)
[2017-04-27 05:03] LABS: BACTERIA, URINE OCC /hpf; WBC, URINE 0-2 /hpf (0-5)
[2017-04-27] MEDS ORDERED: LEVOTHYROXINE SODIUM 50 MCG TAB PO SCH ×2 (06:00)
[2017-04-27 06:25] LABS: AUTOMATED NEUTROPHIL # 1.4 TH/MM3 (1.8-7.7); BASOPHIL % 0.5 % (0.0-2.0); EOSINOPHIL # 0.2 TH/MM3 (0-0.4); EOSINOPHIL % 7.4 % (0.0-4.0); HEMOGLOBIN 8.5 GM/DL (11.6-15.3); LYMPH % 30.9 % (9.0-44.0); LYMPHOCYTE # 0.8 TH/MM3 (1.0-4.8); MEAN CELL VOLUME 97.1 FL (80.0-100.0); MEAN PLATELET VOLUME 7.2 FL (7.0-11.0); MONO % 12.5 % (0.0-8.0); MONOCYTE # 0.3 TH/MM3 (0-0.9); NEUT % 48.7 % (16.0-70.0); PLATELET COUNT 70 TH/MM3 (150-450); RED BLOOD COUNT 2.57 MIL/MM3 (4.00-5.30); RED CELL DISTRIBUTION WIDTH 18.7 % (11.6-17.2); WHITE BLOOD COUNT 2.7 TH/MM3 (4.0-11.0)
[2017-04-27 06:53] LABS: ALBUMIN 1.7 GM/DL (3.4-5.0); BICARBONATE 18.9 MEQ/L (21.0-32.0); CALCIUM 6.9 MG/DL (8.5-10.1); CREATININE 0.77 MG/DL (0.50-1.00); TOTAL BILIRUBIN ADULT 2.7 MG/DL (0.2-1.0); TOTAL PROTEIN 6.1 GM/DL (6.4-8.2)
[2017-04-27 07:10] LABS: CALCIUM-PROTEIN CORRECTED 7.4 MG/DL (8.5-10.1)
[2017-04-27 08:00] VITALS: BP 101/55; PULSE 76; RESP 19; TEMP 97.7; O2SAT 100
[2017-04-27] MEDS ORDERED: PANTOPRAZOLE SOD 40 MG DELAYED RELEASE TAB PO SCH ×2 (09:00)
[2017-04-27] MEDS: SODIUM CHLORIDE 0.9% FLUSH 10 ML FLUSH IV FLUSH SCH ×2 (09:10)
[2017-04-27] MEDS: RIFAXIMIN 550 MG TAB PO SCH ×2 (09:10)
[2017-04-27 12:00] VITALS: BP 105/70; PULSE 75; RESP 21; TEMP 98.5; O2SAT 99
--- NOTE | 2017-04-27 13:47 | HHI.DS ---
Discharge Summary Admission Date Apr 26, 2017 at 16:59 Discharge Date: Apr 27, 2017 Admitting Diagnosis Hepatic encephalopathy (1) Metabolic encephalopathy ICD Code: G93.41 - Metabolic encephalopathy Status: Acute (2) Alcoholic cirrhosis of liver ICD Code: K70.30 - Alcoholic cirrhosis of liver without ascites Status: Acute (3) Hyperammonemia ICD Code: E72.20 - Hyperammonemia Status: Acute (4) Hyponatremia ICD Code: E87.1 - Hypo-osmolality and hyponatremia Status: Acute (5) Malnutrition ICD Code: E46 - Unspecified protein-calorie malnutrition (6) Hypothyroidism Status: Chronic Procedures none Brief History - From Admission Written by Vicki Renee, acting as scribe for Dr. Christie on 04/26/17 at 17:11. Mrs. Santamaria is a 52-year-old female patient with a known medical history of chronic liver failure who presented to the ED with complaints of increasing lethargy and confusion. Patient seen in ED with at bedside. Patient has had increased confusion and lethargy for the past two days. Her labs show elevated ammonia and hyponatremia upon presentation. Denies any changes in medications. Denies any recent headache, dizziness or lightheadedness. Denies any recent fever, chills, cough, shortness of breath, abdominal pain, n/v or dysuria. Has been moving bowels, denies diarrhea or hematozemia. Last paracentesis was 5 weeks ago, denies any worsening ascites or swelling. states that patient has been loosing roughly 1 pound per day despite eating and drinking well. Patient does have a scheduled appointment with the transplant team at [facility] on May 02 to discuss possibility of liver transplant. CBC/BMP: 04/27/17 0547 04/27/17 0547 Significant Findings Laboratory Tests Test 04/26/17 15:55 04/27/17 04:10 04/27/17 05:47 04/27/17 13:25 Red Blood Count 2.80 MIL/MM3 (4.00-5.30) 2.57 MIL/MM3 (4.00-5.30) Hemoglobin 9.3 GM/DL (11.6-15.3) 8.5 GM/DL (11.6-15.3) Hematocrit 27.3 % (35.0-46.0) 25.0 % (35.0-46.0) Red Cell Distribution Width 18.8 % (11.6-17.2) 18.7 % (11.6-17.2) Platelet Count 102 TH/MM3 (150-450) 70 TH/MM3 (150-450) Monocytes (%) (Auto) 10.0 % (0.0-8.0) 12.5 % (0.0-8.0) Eosinophils (%) (Auto) 4.5 % (0.0-4.0) 7.4 % (0.0-4.0) Prothrombin Time 14.3 SEC (9.8-11.6) Activated Partial Thromboplast Time 32.3 SEC (24.3-30.1) Random Glucose 128 MG/DL (74-106) Albumin 2.0 GM/DL (3.4-5.0) 1.7 GM/DL (3.4-5.0) Calcium Level 7.6 MG/DL (8.5-10.1) 6.9 MG/DL (8.5-10.1) Alkaline Phosphatase 246 U/L (45-117) 155 U/L (45-117) Aspartate Amino Transf (AST/SGOT) 49 U/L (15-37) Total Bilirubin 2.4 MG/DL (0.2-1.0) 2.7 MG/DL (0.2-1.0) Sodium Level 130 MEQ/L (136-145) Carbon Dioxide Level 18.5 MEQ/L (21.0-32.0) 18.9 MEQ/L (21.0-32.0) Estimat Glomerular Filtration Rate 67 ML/MIN (>89) 79 ML/MIN (>89) Ammonia 95 MCMOL/L (11-32) 135 MCMOL/L (11-32) Urine Color DILAN (YELLW/STRAW) Urine Squamous Epithelial Cells 6-8 /hpf (0-5) Urine Bacteria OCC /hpf (NONE) Urine Hyaline Casts 3-5 /lpf (RARE) White Blood Count 2.7 TH/MM3 (4.0-11.0) Neutrophils # (Auto) 1.4 TH/MM3 (1.8-7.7) Lymphocytes # (Auto) 0.8 TH/MM3 (1.0-4.8) Platelet Estimate LOW (NORMAL) Total Protein 6.1 GM/DL (6.4-8.2) Protein Corrected Calcium 7.4 MG/DL (8.5-10.1) Imaging Last Impressions Chest X-Ray 04/26/17 1524 Signed Impressions: Service Date/Time: Wednesday, April 26, 2017 15:34 - CONCLUSION: No acute disease. There is no evidence of pneumonia. Calvin Collins MD PE at Discharge submandibular lipoma GENERAL: This is a well-nourished, well-developed patient, in no apparent distress. CARDIOVASCULAR: Regular rate and rhythm without murmurs, gallops, or rubs. RESPIRATORY: Clear to auscultation. Breath sounds equal bilaterally. No wheezes , rales, or rhonchi. GASTROINTESTINAL: Abdomen soft, non-tender, nondistended. Normal active bowel sounds MUSCULOSKELETAL: Extremities without clubbing, cyanosis, or edema. NEURO: Alert & Oriented x4 to person, place, time, situation. Moves all ext x4 Pt update on day of discharge Patient seen and evaluated in follow-up for metabolic encephalopathy. Patient up in room and alert and oriented at baseline. No new events overnight. Hospital Course Patient was seen and evaluated in follow-up for encephalopathy. Patient with known hepatic failure. Her ammonia level was 95 and then 135 after her lactulose. She had minimal bowel movements per her report. Patient's mental status improved with IV hydration and she appeared quite dehydrated. She is taking Aldactone twice a day as well as furosemide. Her sodium was low as well. She has multiple reasons to have metabolic encephalopathy. This point patient will continue with appropriate hydration and follow-up with her hepatology appointment in [place] Pt Condition on Discharge: Stable Discharge Disposition: Discharge Home Discharge Time: <= 30 minutes Discharge Instructions DIET: Follow Instructions for: Heart Healthy Diet Activities you can perform: Regular-No Restrictions Follow up Referrals: Gastroenterology - 05/02/17 Continued Medications: Furosemide (Furosemide) 40 Mg Tab 40 MG PO DAILY, #30 TAB 0 Refills Lactulose Liq (Lactulose Liq) 10 Gm/15 Ml Soln 30 ML PO BID PRN for titrate to 3-4 bm, ML 0 Refills Levothyroxine (Levothyroxine) 50 Mcg Tab 50 MCG PO DAILY for Thyroid, #30 TAB 0 Refills Magnesium Oxide (Magnesium Oxide) 400 Mg Tab 400 MG PO DAILY for Nutritional Supplement for 30 Days, TAB 0 Refills Ondansetron Odt (Zofran Odt) 4 Mg Tab 4 MG SL Q8HR PRN for Nausea/Vomiting, #30 TAB 0 Refills Pantoprazole (Pantoprazole) 40 Mg Tab 40 MG PO DAILY for Reflux, #30 TAB 0 Refills Potassium Chloride ER (Potassium Chloride ER) 10 Meq Tab 10 MEQ PO DAILY for Electrolyte Replacement, #30 TAB 0 Refills Propranolol (Propranolol) 10 Mg Tab 10 MG PO Q12HR, #60 TAB 0 Refills Rifaximin (Xifaxan) 550 Mg Tab 550 MG PO BID for Liver, #60 TAB Spironolactone (Spironolactone) 50 Mg Tab 50 MG PO BIDPC for fluid retention, #60 TAB 0 Refills Caryn Christie MD Apr 27, 2017 13:47
== END 2017-04-27 15:32 | disposition home or self-care (01) ==
LOC: PHED 14:51 → INTOOBSV 16:59 → PHEDA 16:59 → PH3B 18:25
PROVIDERS: ADMIT Hospitalist; ATTEND Hospitalist
DX: G93.41 Metabolic encephalopathy (principal); K70.30 Alcoholic cirrhosis of liver without ascites; K72.10 Chronic hepatic failure without coma; F10.11 Alcohol abuse, in remission; E87.1 Hypo-osmolality and hyponatremia; E44.0 Moderate protein-calorie malnutrition; E03.9 Hypothyroidism, unspecified
CPT/HCPCS: 71010; 80053; 81001; 82140; 83690; 83735; 85025; 85610; 85730; 96360; 96361; 97162; 99285; G0378; G8987; G8988; J7030; J7040

== ENCOUNTER 2017-05-05 08:11 | Day surgery (SDC) | payer MEDICAID ==
[~2017-05-05 08:11] MED LIST changes: -ONDA4TAB7 SL; -OXYC1TAB13 PO; -PROM25TA10 PO
[2017-05-05 08:52] VITALS: BP 98/59; PULSE 75; RESP 20; TEMP 97; O2SAT 96
[2017-05-05] MEDS ORDERED: ALBUMIN 25% INJ 0 ML IV ONE (10:00)
[2017-05-05 10:05] VITALS: BP 94/56; PULSE 73; RESP 18; RESP 20; TEMP 98; O2SAT 100
--- NOTE | 2017-05-05 10:19 | PD.RAD ---
Post US Procedure Prog Note Pre Procedure Diagnosis: (1) Alcoholic cirrhosis of liver (2) Ascites Post Procedure Diagnosis: (1) Ascites Procedure Date: May 05, 2017 Supervising Radiologist: David Child Estimated blood loss: none Anesthesia: Local Plan of Activity Patient to Unit: ROPU Patient Condition: Good See PACS Report for procedural detail/treatment Drainage Procedure Procedure 1 Imaging Guidance: Ultrasound Side: Right Procedure Type: Paracentesis Drainage: Suction Fluid Removal (CCs): 3500 Fluid Description: Clear, Yellow Plan to ROPU for monitoring then discharge in 30 minutes if criteria met. David Child MD May 05, 2017 10:19
--- NOTE | 2017-05-05 10:19 | RADRPT ---
EXAM DATE/TIME: 05/05/2017 08:46 [facility] COMPARISON: US GUIDED ABD PARACENTESIS, March 29, 2017, 10:42. INDICATIONS : Ascites. MEDICAL HISTORY : Anxiety. Hypothyroidism. Arthritis. Cirrhosis. Confusion. Asthma. Anorexia. Bulimia. Hiatal Hiatal h ernia. Upper GI Bleed. Esophageal varices. Alcoholic hepatitis. Thrombocytopenia SURGICAL HISTORY : Cholecystectomy. Umbilical hernia repair. Esophageal banding. Left hip replacementreplacement. Blood transfusions. Paracentesis. ENCOUNTER: Subsequent ACUITY: 1 day PAIN SCORE: 2/10 LOCATION: Right lower quadrant FLUID: Total volume of 3500 cc of clear, yellow fluid was removed. Fluid was discarded. Paracentesis was therapeutic only. Post procedure scanning reveals no hematoma or other complication. TECHNIQUE: 1. Ultrasound guidance for abdominal paracentesis. 2. Paracentesis. The risks, benefits, and alternatives to ultrasound guided paracentesis were explained to the patient in detail including the risk of bleeding and infection. Written and verbal informed consent was obt ained. With the patient on the ultrasound table, ultrasound imaging was used to select the most appropriate approach for paracentesis. Overlying skin was prepped and draped in the usual sterile fashion and wi th a local anesthetic, a dermatotomy was made with an 11 blade scalpel. A 6 Tamazight [id number] ca theter was introduced into the peritoneal cavity and fluid was collected. The patient tolerated the procedure well and left the ultrasound suite in stable condition. CONCLUSION: Uncomplicated ultrasound guided paracentesis. David Child MD on May 05, 2017 at 10:16 Board Certified Radiologist. This report was verified electronically.
[2017-05-05 10:20] VITALS: BP 96/60; PULSE 73; RESP 18; O2SAT 100
[2017-05-06] MEDS ORDERED: THIA100 PO (11:34)
[2017-05-06] MEDS ORDERED: LACT10SO PO (11:34)
[2017-05-06] MEDS ORDERED: PROP10TA6 PO (11:34)
[2017-05-06] MEDS ORDERED: XIFA550T4 PO (11:34)
== END 2017-05-05 10:30 | disposition home or self-care (01) ==
LOC: HRAD 08:11 → HRIP 08:23 → HRAD 10:30
PROVIDERS: ATTEND Internal Medicine Gastroenterology
DX: K70.31 Alcoholic cirrhosis of liver with ascites (principal); K72.90 Hepatic failure, unspecified without coma
CPT/HCPCS: 49083; C1729

== ENCOUNTER 2017-05-05 12:02 | Inpatient (IN) | payer MEDICAID ==
[~2017-05-05] VITALS: Ht 162.6 cm; Wt 50.8 kg
[2017-05-05] VITALS (7 sets, daily range): BP systolic 90–98; BP diastolic 48–58; PULSE 69–76; RESP 16–20; TEMP 97.7–98.9; O2SAT 93–100
[2017-05-05] MEDS ORDERED: SODIUM CHLORIDE 0.9% FLUSH 5 ML FLUSH IV FLUSH PRN (12:30)
[2017-05-05 13:11] LABS: AUTOMATED NEUTROPHIL # 3.5 TH/MM3 (1.8-7.7); BASOPHIL % 0.9 % (0.0-2.0); EOSINOPHIL # 0.4 TH/MM3 (0-0.4); EOSINOPHIL % 7.3 % (0.0-4.0); HEMATOCRIT 27.8 % (35.0-46.0); HEMO FLAGS DIFF FINAL; LYMPH % 15.9 % (9.0-44.0); LYMPHOCYTE # 0.9 TH/MM3 (1.0-4.8); MEAN CELL VOLUME 97.7 FL (80.0-100.0); MEAN CORPUSCULAR HEMOGLOBIN 32.4 PG (27.0-34.0); MEAN CORPUSCULAR HGB CONC 33.2 % (32.0-36.0); MONO % 10.9 % (0.0-8.0); PLATELET COUNT 128 TH/MM3 (150-450); RED BLOOD COUNT 2.85 MIL/MM3 (4.00-5.30); RED CELL DISTRIBUTION WIDTH 17.7 % (11.6-17.2); WHITE BLOOD COUNT 5.4 TH/MM3 (4.0-11.0)
[2017-05-05 13:21] LABS: POTASSIUM 3.6 MEQ/L (3.5-5.1)
[2017-05-05 13:23] LABS: BLOOD, URINE TRACE (NEG); GLUCOSE,URINE NEG (NEG); KETONE, URINE NEG (NEG); NITRITE,URINE NEG (NEG); PH, URINE 6.5 (5.0-8.5)
[2017-05-05 13:29] LABS: METHOD OF COLLECTION CATH; URINE COLOR YELLOW (YELLW/STRAW)
[2017-05-05] MEDS ORDERED: SODIUM CHLOR 0.9% 1000 ML INJ 1,000 ML IV ONE (13:30)
[2017-05-05 13:31] LABS: COMMENT (UR) CULT NOT INDICATED; CULTURE IF INDICATED CULT NOT INDICATED; SQUAMOUS EPITHELIAL CELL URINE 0-5 /hpf (0-5); WBC, URINE 0-2 /hpf (0-5)
[2017-05-05] MEDS ORDERED: LACTULOSE SYRUP 20 GM/30 ML CUP PO ONE (14:00)
[2017-05-05 14:02] LABS: BICARBONATE 22.2 MEQ/L (21.0-32.0); TOTAL BILIRUBIN ADULT 2.1 MG/DL (0.2-1.0)
[2017-05-05 14:12] LABS: CALCIUM-PROTEIN CORRECTED 7.3 MG/DL (8.5-10.1)
--- NOTE | 2017-05-05 14:28 | PD ---
HPI Chief Complaint: Altered Mental Status Time Seen by Provider: 12:29 Travel History International Travel<30 days: No Contact w/Intl Traveler<30days: No Traveled to known affect area: No History of Present Illness HPI the patient's 52 years old and arrives due to generalized weakness and altered mental status according to the who provides the history. She has a history of alcoholic cirrhosis however she stopped drinking 4 years ago. Multiple similar prior episodes have responded well to lactulose and affect clinical presentations similar to those of today. Additionally dehydration has presented similarly. She has no abdominal pain. She has been compliant with lactulose spironolactone and Lasix. She underwent paracentesis earlier today. Symptoms were first noticed yesterday and worsened towards the evening. PFSH Past Medical History Hx Anticoagulant Therapy: No Arthritis: Yes Asthma: Yes Autoimmune Disease: No Anxiety: Yes Depression: Yes Heart Rhythm Problems: No Cancer: No Cardiovascular Problems: Yes (htn on meds) High Cholesterol: No Chemotherapy: No Chest Pain: No Congestive Heart Failure: No Cirrhosis: Yes (End stage ) COPD: No Cerebrovascular Accident: No Diabetes: No Diminished Hearing: No Endocrine: Yes Gastrointestinal Disorders: Yes (Upper GIB, varices, bleeding ulcers ) GERD: No Genitourinary: No Headaches: No Hepatitis: Yes (Alcoholic ) Hiatal Hernia: Yes Heparin Induced Thrombocytopen: No Hypertension: No Immune Disorder: No Implanted Vascular Access Dvce: No Kidney Stones: No Medical other: Yes (ESOPHAGEAL VARICES; LIVER CIRRHOSIS; THROMBOCYTOPENIA ;) Musculoskeletal: Yes (neck is "puffy" pt states "its puffy cause i have a endocrine problem") Neurologic: No Psychiatric: Yes Reproductive: No Respiratory: No Immunizations Current: Yes Migraines: No Radiation Therapy: No Renal Failure: No Seizures: No Sickle Cell Disease: No Sleep Apnea: No Thyroid Disease: Yes (Hypothyroidism) Ulcer: No Influenza Vaccination: Yes ?: Not Menopausal: Yes Past Surgical History Abdominal Surgery: Yes (Umb. hernia repair ) AICD: No Body Medical Devices: NONE Cardiac Surgery: No Cholecystectomy: Yes (2006) Ear Surgery: No Endocrine Surgery: No Eye Surgery: No Genitourinary Surgery: No Gynecologic Surgery: No Hysterectomy: No Insulin Pump: No Joint Replacement: Yes (Lt. hip) Neurologic Surgery: No Oral Surgery: No Pacemaker: No Thoracic Surgery: No Other Surgery: Yes (Cholecystectomy) Social History Alcohol Use: No (H/O alcoholism ) Tobacco Use: No Substance Use: No Allergies-Medications (Allergen,Severity, Reaction): Coded Allergies: aspirin (Unverified Adverse Reaction, Severe, Bleeding, 05/05/17) codeine (Unverified Adverse Reaction, Severe, Vomiting, 05/05/17) morphine (Unverified Adverse Reaction, Severe, 05/05/17) Patient's states someone overdosed her on XR morphine nortriptyline (Unverified Adverse Reaction, Severe, Hallucinations, vomiting , 05/05/17) Reported Meds & Prescriptions Reported Meds & Active Scripts Active Zofran Odt (Ondansetron Odt) 4 Mg Tab 4 Mg SL Q8HR PRN Spironolactone 50 Mg Tab 50 Mg PO BIDPC Potassium Chloride ER (Potassium Chloride) 10 Meq Tab 10 Meq PO DAILY Magnesium Oxide 400 Mg Tab 400 Mg PO DAILY 30 Days Levothyroxine (Levothyroxine Sodium) 50 Mcg Tab 50 Mcg PO DAILY Xifaxan (Rifaximin) 550 Mg Tab 550 Mg PO BID Reported Propranolol (Propranolol HCl) 10 Mg Tab 10 Mg PO Q12HR Lactulose Liq (Lactulose) 10 Gm/15 Ml Soln 30 Ml PO BID PRN Pantoprazole (Pantoprazole Sodium) 40 Mg Tab 40 Mg PO DAILY Furosemide 40 Mg Tab 40 Mg PO DAILY Review of Systems Except as stated in HPI: all other systems reviewed are Neg Physical Exam Narrative GENERAL: 52-year-old female pleasant well-nourished well-developed mild distress quite fatigued SKIN: Focused skin assessment warm/dry. HEAD: Atraumatic. Normocephalic. Occasional bruising but the forearms. EYES: Pupils equal and round. No scleral icterus. No injection or drainage. ENT: No nasal bleeding or discharge. Mucous membranes pink and moist. NECK: Trachea midline. No JVD. CARDIOVASCULAR: Regular rate and rhythm. No murmur appreciated. RESPIRATORY: No accessory muscle use. Clear to auscultation. Breath sounds equal bilaterally. GASTROINTESTINAL: Abdomen soft, non-tender, nondistended. Hepatic and splenic margins not palpable. MUSCULOSKELETAL: No obvious deformities. No clubbing. No cyanosis. No edema. NEUROLOGICAL: Patient is quite sleepy however opens her eyes and answers questions when appropriate. No focal cranial nerve deficit. Patient moves all extremities. PSYCHIATRIC: Appropriate mood and affect; insight and judgment normal. Data Data Last Documented VS Vital Signs Date Time Temp Pulse Resp B/P (MAP) Pulse Ox O2 Delivery O2 Flow Rate FiO2 05/05/17 14:13 73 18 97/48 (64) 98 Room Air 05/05/17 12:14 97.9 VS reviewed Orders Orders Ammonia (05/05/17 12:29) Complete Blood Count With Diff (05/05/17 12:29) Comprehensive Metabolic Panel (05/05/17 12:29) Prothrombin Time / Inr (Pt) (05/05/17 12:29) Act Partial Throm Time (Ptt) (05/05/17 12:29) Urinalysis - C+S If Indicated (05/05/17 12:29) Ecg Monitoring (05/05/17 12:29) Iv Access Insert/Monitor (05/05/17 12:29) Oximetry (05/05/17 12:29) Sodium Chloride 0.9% Flush (Ns Flush) (05/05/17 12:30) Sodium Chlor 0.9% 1000 Ml Inj (Ns 1000 M (05/05/17 13:30) Lactulose Liq (Lactulose Liq) (05/05/17 14:00) Labs Laboratory Tests Test 05/05/17 13:00 05/05/17 13:15 05/05/17 14:15 White Blood Count 5.4 TH/MM3 Red Blood Count 2.85 MIL/MM3 Hemoglobin 9.2 GM/DL Hematocrit 27.8 % Mean Corpuscular Volume 97.7 FL Mean Corpuscular Hemoglobin 32.4 PG Mean Corpuscular Hemoglobin Concent 33.2 % Red Cell Distribution Width 17.7 % Platelet Count 128 TH/MM3 Mean Platelet Volume 6.7 FL Neutrophils (%) (Auto) 65.0 % Lymphocytes (%) (Auto) 15.9 % Monocytes (%) (Auto) 10.9 % Eosinophils (%) (Auto) 7.3 % Basophils (%) (Auto) 0.9 % Neutrophils # (Auto) 3.5 TH/MM3 Lymphocytes # (Auto) 0.9 TH/MM3 Monocytes # (Auto) 0.6 TH/MM3 Eosinophils # (Auto) 0.4 TH/MM3 Basophils # (Auto) 0.0 TH/MM3 CBC Comment DIFF FINAL Differential Comment Blood Urea Nitrogen 8 MG/DL Creatinine 0.64 MG/DL Random Glucose 96 MG/DL Total Protein 6.7 GM/DL Albumin 1.9 GM/DL Calcium Level 7.1 MG/DL Alkaline Phosphatase 185 U/L Aspartate Amino Transf (AST/SGOT) 43 U/L Alanine Aminotransferase (ALT/SGPT) 32 U/L Total Bilirubin 2.1 MG/DL Sodium Level 132 MEQ/L Potassium Level 3.6 MEQ/L Chloride Level 103 MEQ/L Carbon Dioxide Level 22.2 MEQ/L Anion Gap 7 MEQ/L Estimat Glomerular Filtration Rate 97 ML/MIN Protein Corrected Calcium 7.3 MG/DL Ammonia 215 MCMOL/L Urine Collection Type CATH Urine Color YELLOW Urine Turbidity CLEAR Urine pH 6.5 Urine Specific [place] 1.006 Urine Protein NEG mg/dL Urine Glucose (UA) NEG mg/dL Urine Ketones NEG mg/dL Urine Occult Blood TRACE Urine Nitrite NEG Urine Bilirubin NEG Urine Leukocyte Esterase NEG Urine WBC 0-2 /hpf Urine Squamous Epithelial Cells 0-5 /hpf Microscopic Urinalysis Comment CULT NOT INDICATED MDM Medical Decision Making Medical Screen Exam Complete: Yes Emergency Medical Condition: Yes Medical Record Reviewed: Yes Differential Diagnosis hepatic encephalopathy, dehydration, metabolic disarray, sepsis Narrative Course CBC & BMP Diagram 05/05/17 13:00 Total Protein 6.7, Albumin 1.9 L, Calcium Level 7.1 *L, Alkaline Phosphatase 185 H, Aspartate Amino Transf (AST/SGOT) 43 H, Alanine Aminotransferase (ALT/ SGPT) 32, Total Bilirubin 2.1 H Ammonia 215 Lactulose started L EJ started at bedside by me, almost no blood return concerning for low volume status; IVF 1L NS d/w Dr Ramirez: admission for hepatic encephalopathy Diagnosis Primary Impression: Hyperammonemia Admitting Information Admitting Physician Requests: Admit Hussain Bauer MD May 05, 2017 14:28
[2017-05-05 14:37] LABS: APTT (PATIENT) 33.6 SEC (24.3-30.1); INTERNATIONAL NORMALIZED RATIO 1.4 RATIO; PROTHROMBIN TIME - PATIENT 15.5 SEC (9.8-11.6)
[2017-05-05] MEDS ORDERED: ONDANSETRON HCL 4 MG/2 ML VIAL IVP PRN (15:15)
[2017-05-05] MEDS ORDERED: MAGNESIUM HYDROXIDE SUSP 30 ML CUP PO PRN (15:15)
[2017-05-05] MEDS ORDERED: NALOXONE HCL 0.4 MG/ML AMP IV PUSH PRN (15:15)
[2017-05-05] MEDS ORDERED: LACTULOSE SYRUP 20 GM/30 ML CUP PO PRN (15:15)
[2017-05-05] MEDS ORDERED: SENNOSIDES 8.6 MG TAB PO PRN (15:15)
[2017-05-05] MEDS ORDERED: BISACODYL 10 MG SUPP RECTAL PRN (15:15)
[2017-05-05] MEDS ORDERED: SODIUM CHLORIDE 0.9% FLUSH 10 ML FLUSH IV FLUSH PRN (15:15)
--- NOTE | 2017-05-05 15:35 | HHI.HP ---
[facility] Primary Care Physician David Vo MD Admission Diagnosis Hepatic Encephalopathy Diagnoses: Travel History International Travel<30 Days: No Contact w/Intl Traveler <30 Da: No Traveled to Known Affected Are: No History of Present Illness 52-year-old female with a history of chronic liver failure, ascites, hepatic encephalopathy who presents with worsening generalized weakness, altered mental status. she underwent 3.5 L paracentesis this morning. Patient is extremely confused, with extremely disjointed speech. Family not at bedside at time of examination. History is obtained from ER, as well as chart review. Patient reported to be compliant with lactulose, and reportedly was not complaining of any abdominal pain. Review of Systems Attempted, however patient unable to answer questions appropriately. Past Family Social History Past Medical History Chronic alcoholic cirrhosis and quit drinking 4 years ago. Soft to varices Hyper thyroidism Chronic from cytopenia Chronic hyponatremia Past Surgical History Left hip surgery Hernia repair cholecystectomy Multiple variceal bleeds with EGDs with banding. Reported Medications Reported Meds & Active Scripts Active Zofran Odt (Ondansetron Odt) 4 Mg Tab 4 Mg SL Q8HR PRN Spironolactone 50 Mg Tab 50 Mg PO BIDPC Potassium Chloride ER (Potassium Chloride) 10 Meq Tab 10 Meq PO DAILY Magnesium Oxide 400 Mg Tab 400 Mg PO DAILY 30 Days Levothyroxine (Levothyroxine Sodium) 50 Mcg Tab 50 Mcg PO DAILY Xifaxan (Rifaximin) 550 Mg Tab 550 Mg PO BID Reported Propranolol (Propranolol HCl) 10 Mg Tab 10 Mg PO Q12HR Lactulose Liq (Lactulose) 10 Gm/15 Ml Soln 30 Ml PO BID PRN Pantoprazole (Pantoprazole Sodium) 40 Mg Tab 40 Mg PO DAILY Furosemide 40 Mg Tab 40 Mg PO DAILY Allergies: Coded Allergies: aspirin (Unverified Adverse Reaction, Severe, Bleeding, 05/05/17) codeine (Unverified Adverse Reaction, Severe, Vomiting, 05/05/17) morphine (Unverified Adverse Reaction, Severe, 05/05/17) Patient's states someone overdosed her on XR morphine nortriptyline (Unverified Adverse Reaction, Severe, Hallucinations, vomiting , 05/05/17) Family History Attempted, however patient unable to answer questions. Social History No reported current tobacco, alcohol or illicit drug use. Prior history of alcoholism, quitting 4 years ago. Physical Exam Vital Signs Vital Signs Date Time Temp Pulse Resp B/P (MAP) Pulse Ox O2 Delivery O2 Flow Rate FiO2 05/05/17 14:13 73 18 97/48 (64) 98 Room Air 05/05/17 12:51 75 18 94/58 (70) 98 Room Air 05/05/17 12:43 16 100 Room Air 05/05/17 12:14 97.9 76 16 96/55 (69) 100 Physical Exam GENERAL: Thin 52-year-old female appears greater than recorded age. Sleeping, wakes up for exam. Somnolent. Answers yes or no questions always with yes. After I asked her what year it was she keeps saying "99," and answered all subsequent yes/no questions with "99". SKIN: No rashes, ecchymoses or lesions. Cool and dry. HEAD: Atraumatic. Normocephalic. No temporal or scalp tenderness. EYES: Pupils equal round and reactive. Extraocular motions intact. No scleral icterus. No injection or drainage. ENT: Nose without bleeding, purulent drainage or septal hematoma. Throat without erythema, tonsillar hypertrophy or exudate. Uvula midline. Airway patent. NECK: Trachea midline. No JVD or lymphadenopathy. Supple, nontender, no meningeal signs. CARDIOVASCULAR: Regular rate and rhythm without murmurs, gallops, or rubs. RESPIRATORY: Clear to auscultation. Breath sounds equal bilaterally. No wheezes , rales, or rhonchi. GASTROINTESTINAL: Abdomen soft, non-tender, nondistended. No rebound or guarding. Positive bowel sounds. ascites present, however nondistended. MUSCULOSKELETAL: Extremities without clubbing, cyanosis, or edema. No joint tenderness, effusion, or edema noted. No calf tenderness. Negative Homans sign bilaterally. NEUROLOGICAL: Awake, somnolent, poor attention. Spontaneously moving all extremities. Variable ability to obey commands. Laboratory Laboratory Tests Test 05/05/17 13:00 05/05/17 13:15 05/05/17 14:15 White Blood Count 5.4 Red Blood Count 2.85 Hemoglobin 9.2 Hematocrit 27.8 Mean Corpuscular Volume 97.7 Mean Corpuscular Hemoglobin 32.4 Mean Corpuscular Hemoglobin Concent 33.2 Red Cell Distribution Width 17.7 Platelet Count 128 Mean Platelet Volume 6.7 Neutrophils (%) (Auto) 65.0 Lymphocytes (%) (Auto) 15.9 Monocytes (%) (Auto) 10.9 Eosinophils (%) (Auto) 7.3 Basophils (%) (Auto) 0.9 Neutrophils # (Auto) 3.5 Lymphocytes # (Auto) 0.9 Monocytes # (Auto) 0.6 Eosinophils # (Auto) 0.4 Basophils # (Auto) 0.0 CBC Comment DIFF FINAL Differential Comment Blood Urea Nitrogen 8 Creatinine 0.64 Random Glucose 96 Total Protein 6.7 Albumin 1.9 Calcium Level 7.1 Alkaline Phosphatase 185 Aspartate Amino Transf (AST/SGOT) 43 Alanine Aminotransferase (ALT/SGPT) 32 Total Bilirubin 2.1 Sodium Level 132 Potassium Level 3.6 Chloride Level 103 Carbon Dioxide Level 22.2 Anion Gap 7 Estimat Glomerular Filtration Rate 97 Protein Corrected Calcium 7.3 Ammonia 215 Urine Collection Type CATH Urine Color YELLOW Urine Turbidity CLEAR Urine pH 6.5 Urine Specific [place] 1.006 Urine Protein NEG Urine Glucose (UA) NEG Urine Ketones NEG Urine Occult Blood TRACE Urine Nitrite NEG Urine Bilirubin NEG Urine Leukocyte Esterase NEG Urine WBC 0-2 Urine Squamous Epithelial Cells 0-5 Microscopic Urinalysis Comment CULT NOT INDICATED Prothrombin Time 15.5 Prothromb Time International Ratio 1.4 Activated Partial Thromboplast Time 33.6 Result Diagram: 05/05/17 1300 05/05/17 1300 Caprini VTE Risk Assessment Caprini VTE Risk Assessment: No/Low Risk (score <= 1) Caprini Risk Assessment Model Point Value = 1 Point Value = 2 Point Value = 3 Point Value = 5 Age 41-60 Minor surgery BMI > 25 kg/m2 Swollen legs Varicose veins or History of unexplained or recurrent spontaneous Oral contraceptives or hormone replacement Sepsis (< 1 month) Serious lung disease, including pneumonia (< 1 month) Abnormal pulmonary function Acute myocardial infarction Congestive heart failure (< 1 month) History of inflammatory bowel disease Medical patient at bed rest Age 61-74 Arthroscopic surgery Major open surgery (> 45 min) Laparoscopic surgery (> 45 min) Malignancy Confined to bed (> 72 hours) Immobilizing plaster cast Central venous access Age >= 75 History of VTE Family history of VTE Factor V Leiden Prothrombin [id number] Lupus anticoagulant Anticardiolipin antibodies Elevated serum homocysteine Heparin-induced thrombocytopenia Other congenital or acquired thrombophilia Stroke (< 1 month) Elective arthroplasty Hip, pelvis, or leg fracture Acute spinal cord injury (< 1 month) Prophylaxis Regimen Total Risk Factor Score Risk Level Prophylaxis Regimen 0-1 Low Early ambulation 2 Moderate Order ONE of the following: *Sequential Compression Device (SCD) *Heparin 5000 units SQ BID 3-4 Higher Order ONE of the following medications: *Heparin 5000 units SQ TID *Enoxaparin/Lovenox 40 mg SQ daily (WT < 150 kg, CrCl > 30 mL/min) *Enoxaparin/Lovenox 30 mg SQ daily (WT < 150 kg, CrCl > 10-29 mL/min) *Enoxaparin/Lovenox 30 mg SQ BID (WT < 150 kg, CrCl > 30 mL/min) AND/OR *Sequential Compression Device (SCD) 5 or more Highest Order ONE of the following medications: *Heparin 5000 units SQ TID (Preferred with Epidurals) *Enoxaparin/Lovenox 40 mg SQ daily (WT < 150 kg, CrCl > 30 mL/min) *Enoxaparin/Lovenox 30 mg SQ daily (WT < 150 kg, CrCl > 10-29 mL/min) *Enoxaparin/Lovenox 30 mg SQ BID (WT < 150 kg, CrCl > 30 mL/min) AND *Sequential Compression Device (SCD) Assessment and Plan Assessment and Plan //Severe hepatic encephalopathy //Chronic alcoholic cirrhosis. //Abdominal ascites. -Status post 3.5 L paracentesis today. -Ammonia in the 200s. Severe confusion. Hemoglobin at chronic baseline. No evidence of acute bleeding. -Questionable compliance. -Start lactulose, rifaximin, metronidazole, diuretics, propranolol. -Give albumin 25 g of 25% 1. Consult GI. //Hypernatremia. 132. Chronic. Secondary to liver disease. Continue to monitor. //thropmbocytopenia. Platelets 120. No signs of bleeding. Continue monitor. //Chronic anemia. Hemoglobin 9.2. Appears at recent baseline. Continue to monitor. //Hypothyroidism. -Chronic. Check TSH. Continue home medication. //GERD. //History of gastric varices with banding in the past Continue home PPI. //DVT prophylaxis. SCDs. Discussed Condition With Patient, ER physician. Physician Certification 2 Midnight Certification Type: Admission for Inpatient Services Order for Inpatient Services The services are ordered in accordance with Medicare regulations or non- Medicare payer requirements, as applicable. In the case of services not specified as inpatient-only, they are appropriately provided as inpatient services in accordance with the 2-midnight benchmark. Estimated LOS (days): 3 days is the estimated time the patient will need to remain in the hospital, assuming treatment plan goals are met and no additional complications. Post-Hospital Plan: Not yet determined Jem Ramirez MD May 05, 2017 15:35
[2017-05-05] MEDS: LACTULOSE SYRUP 20 GM/30 ML CUP PO SCH ×3 (16:00→23:55)
[2017-05-05] MEDS ORDERED: THIAMINE HCL 100 MG TAB PO ONE (16:00)
[2017-05-05] MEDS: RIFAXIMIN 200 MG TAB PO SCH ×2 (16:38→21:19)
[2017-05-05] MEDS ORDERED: ALBUMIN 25% INJ 100 ML IV ONE (17:00)
[2017-05-05] MEDS: SPIRONOLACTONE 25 MG TAB PO SCH (18:11)
[2017-05-05 18:32] LABS: FREE T4 1.32 NG/DL (0.76-1.46)
[2017-05-05] MEDS: SODIUM CHLORIDE 0.9% FLUSH 10 ML FLUSH IV FLUSH SCH (21:19)
[2017-05-05] MEDS: PROPRANOLOL HCL 10 MG TAB PO SCH (21:19)
[2017-05-05] MEDS: metroNIDAZOLE 500 MG TAB PO SCH (21:19)
[2017-05-06] VITALS: BP 80/58; PULSE 78; RESP 16; TEMP 98.8; O2SAT 95
[2017-05-06 04:00] VITALS: BP 100/56; PULSE 80; RESP 16; TEMP 98.9; O2SAT 95
[2017-05-06] MEDS: metroNIDAZOLE 500 MG TAB PO SCH (05:28)
[2017-05-06] MEDS: LACTULOSE SYRUP 20 GM/30 ML CUP PO SCH ×3 (05:28→11:28)
[2017-05-06] MEDS: RIFAXIMIN 200 MG TAB PO SCH (05:28)
[2017-05-06] MEDS ORDERED: LEVOTHYROXINE SODIUM 50 MCG TAB PO SCH (06:00)
--- NOTE | 2017-05-06 06:16 | MB ---
cc: ELMIRA RODRIGUEZ M.D. DATE OF CONSULTATION 05/05/2017 DATE OF [address] Jem Ramirez REASON FOR REFERRAL Cirrhosis, encephalopathy. Thank you for the consultation. HISTORY OF PRESENT ILLNESS A 52-year-old lady who has been to the hospital multiple times. The patient is known to have cirrhosis secondary to alcohol. The patient had a scheduled paracentesis today as an outpatient where they obtained 3.5 liters. The patient after that felt weak and generalized fatigue and some altered mental status so she came to the emergency room, was found to have an ammonia level of 215. The patient felt that she was weak. Supposedly she is compliant with her medications including lactulose. She denied any abdominal pain except when it is distended and currently laying in bed comfortably, seems to be comfortable. No significant complaints except general fatigue after the paracentesis. REVIEW OF SYSTEMS All 12-points negative except HPI. PAST MEDICAL HISTORY 1. Significant for esophageal varices. 2. Hyperthyroidism. 3. Cytopenia. 4. Hyponatremia. 5. Alcohol liver disease. She quit drinking 4 years ago with cirrhosis. MEDICATIONS Reviewed in the chart. ALLERGIES ASPIRIN. CODEINE. MORPHINE. NORTRIPTYLINE SOCIAL HISTORY Negative for tobacco, drugs or alcohol. FAMILY HISTORY Noncontributory. PHYSICAL EXAMINATION GENERAL: Alert, oriented at this time, in no acute distress. VITAL SIGNS: Stable. HEENT: Pupils are round, reactive to light. No scleral icterus. NECK: Supple. CARDIAC: Regular rate and rhythm. No murmur or gallop. ABDOMEN: Soft, mild distension but not tender and positive bowel sounds. No hepatosplenomegaly that I could appreciate. The patient has small ascites. EXTREMITIES: No edema, clubbing or cyanosis. NEUROLOGIC: At this time alert, oriented, responding well to questions. Seems this is different from when she was in the emergency room. PSYCHIATRIC: Psychologically appropriate. LABORATORY DATA White count 5.4, hemoglobin 9.2, platelets 128. INR 1.4, calcium 7.1, AST 43, ALT 32, alk phos 185. Total bilirubin 2.1. Ammonia level 215. ASSESSMENT AND PLAN A 52-year-old lady who has history of cirrhosis secondary to alcohol. She is off alcohol for at least 4 years according to her. She had paracentesis. She is well managed as an outpatient with her antidiuretics, propranolol, lactulose and rifaximin. The patient said that she has been taking that. She always has high ammonia. Her symptoms could be related to possible hypovolemia or electrolyte imbalance from the paracentesis, currently doing well. We will repeat the ammonia level tomorrow, continue current care and further plan depends on how she is doing. MD OLVIN Moy/BILLY /8:54 PM /6:01 AM
[2017-05-06 06:44] LABS: AUTOMATED NEUTROPHIL # 2.1 TH/MM3 (1.8-7.7); BASOPHIL % 0.4 % (0.0-2.0); EOSINOPHIL # 0.4 TH/MM3 (0-0.4); EOSINOPHIL % 10.1 % (0.0-4.0); HEMO FLAGS DIFF FINAL; LYMPH % 24.8 % (9.0-44.0); LYMPHOCYTE # 0.9 TH/MM3 (1.0-4.8); MEAN CELL VOLUME 97.5 FL (80.0-100.0); MEAN CORPUSCULAR HEMOGLOBIN 32.6 PG (27.0-34.0); MEAN CORPUSCULAR HGB CONC 33.4 % (32.0-36.0); MONO % 11.4 % (0.0-8.0); NEUT % 53.3 % (16.0-70.0); PLATELET COUNT 109 TH/MM3 (150-450); RED BLOOD COUNT 2.67 MIL/MM3 (4.00-5.30); RED CELL DISTRIBUTION WIDTH 18.1 % (11.6-17.2); WHITE BLOOD COUNT 3.8 TH/MM3 (4.0-11.0)
[2017-05-06 06:48] LABS: CHLORIDE 108 MEQ/L (98-107); POTASSIUM 3.2 MEQ/L (3.5-5.1); SODIUM (NA) 137 MEQ/L (136-145)
[2017-05-06 06:52] LABS: ANION GAP 10 MEQ/L (5-15); BICARBONATE 19.4 MEQ/L (21.0-32.0); BLOOD UREA NITROGEN 8 MG/DL (7-18)
[2017-05-06 06:55] LABS: ALT (GPT) 29 U/L (10-53); AST (GOT) 37 U/L (15-37); GLOMERULAR FILTRATION RATE 88 ML/MIN (>89)
[2017-05-06 06:57] LABS: TOTAL BILIRUBIN ADULT 2.8 MG/DL (0.2-1.0)
[2017-05-06 06:58] LABS: ALKALINE PHOSPHATASE 132 U/L (45-117)
[2017-05-06] MEDS ORDERED: POTASSIUM CHLORIDE 20 MEQ CONTROLLED RELEASE TAB PO ONE (07:30)
[2017-05-06 08:00] VITALS: BP 126/59; PULSE 112; RESP 18; TEMP 98.4; O2SAT 99
[2017-05-06] MEDS ORDERED: THIAMINE HCL 100 MG TAB PO SCH (09:00)
[2017-05-06] MEDS ORDERED: PANTOPRAZOLE SOD 40 MG DELAYED RELEASE TAB PO SCH (09:00)
[2017-05-06] MEDS ORDERED: FUROSEMIDE 20 MG TAB PO SCH (09:00)
[2017-05-06] MEDS: SPIRONOLACTONE 25 MG TAB PO SCH (09:32)
[2017-05-06] MEDS: PROPRANOLOL HCL 10 MG TAB PO SCH (09:32)
[2017-05-06] MEDS: SODIUM CHLORIDE 0.9% FLUSH 10 ML FLUSH IV FLUSH SCH (09:33)
[2017-05-06] MEDS ORDERED: SODIUM BICARBONATE 325 MG TAB PO ONE (09:45)
--- NOTE | 2017-05-06 11:31 | HHI.FF ---
Face to Face Verification Diagnosis: (1) Hyperammonemia (2) Alcoholic cirrhosis of liver (3) Cirrhosis of liver Physical Therapy Order: Evaluate and Treat Home Health Nursing Order: Nursing assessment with vital signs Instructions: Patient will need home health nurse for medication management. I have seen patient Michelle Santamaria on 05/06/17. My clinical findings support the need for the requested home health care services because: Deconditioned w/ increased weakness I certify that my clinical findings support that this patient is homebound because: Unsafe to leave home unassisted Jem Ramirez MD May 06, 2017 11:31
[2017-05-06] MEDS ORDERED: XIFA550T4 PO (11:34)
[2017-05-06] MEDS ORDERED: LACT10SO PO (11:34)
[2017-05-06] MEDS ORDERED: THIA100 PO (11:34)
[2017-05-06] MEDS ORDERED: PROP10TA6 PO (11:34)
[2017-05-06 12:28] VITALS: BP 99/59; PULSE 76; RESP 18; TEMP 97.7; O2SAT 99
--- NOTE | 2017-05-07 01:27 | HHI.PR ---
Subjective Remarks Date of service 05/06/17. Patient seen the morning of 05/06/17. Patient says she is feeling well. She is alert and oriented 4. She says she ran out of lactulose several days ago, and needs a refill Objective Vital Signs Date Time Temp Pulse Resp B/P (MAP) Pulse Ox O2 Delivery O2 Flow Rate FiO2 05/06/17 12:28 97.7 76 18 99/59 (72) 99 05/06/17 08:00 98.4 112 18 126/59 (81) 99 05/06/17 04:00 98.9 80 16 100/56 (71) 95 I/O 05/06/17 05/06/17 05/06/17 05/07/17 05/07/17 05/07/17 07:00 15:00 23:00 07:00 15:00 23:00 Intake Total 600 ml 240 ml Balance 600 ml 240 ml Intake Oral 600 ml 240 ml # Voids 2 2 # Bowel Movements 2 0 Result Diagram: 05/06/17 0500 05/06/17 0500 Objective Remarks GENERAL: patient sitting up in bed. Alert and oriented 4. SKIN: Warm and dry. HEAD: Normocephalic. EYES: No scleral icterus. No injection or drainage. NECK: Supple, trachea midline. No JVD or lymphadenopathy. CARDIOVASCULAR: Regular rate and rhythm without murmurs, gallops, or rubs. RESPIRATORY: Breath sounds equal bilaterally. No accessory muscle use. GASTROINTESTINAL: Abdomen soft, non-tender, nondistended. MUSCULOSKELETAL: No cyanosis, or edema. BACK: Nontender without obvious deformity. No CVA tenderness. A/P Assessment and Plan //Severe hepatic encephalopathy //Chronic alcoholic cirrhosis. //Abdominal ascites. -Status post 3.5 L paracentesis today. -Ammonia in the 200s. Severe confusion. Hemoglobin at chronic baseline. No evidence of acute bleeding. -Questionable compliance. -Start lactulose, rifaximin, metronidazole, diuretics, propranolol. -Give albumin 25 g of 25% 1. Consult GI. = Improved. Ammonia 98 today. Secondary to noncompliance. Refill lactulose. Order home health for medication management. //Hyponatremia. 132. Chronic. Secondary to liver disease. Continue to monitor. //thropmbocytopenia. Platelets 120. No signs of bleeding. Continue monitor. //Chronic anemia. Hemoglobin 9.2. Appears at recent baseline. Continue to monitor. -Platelets, hemoglobin relatively stable, slightly down secondary to IV fluids. //Hypothyroidism. -Chronic. -TSH 12.4, however free T4 within normal limits. Likely elevated secondary to stress. Recheck as outpatient and nonacute setting. //GERD. //History of gastric varices with banding in the past Continue home PPI. //Hypokalemia. 3.2. Replaced. //DVT prophylaxis. SCDs. Discharge Planning Discharge home with home health. Activity ad sav. Continue regular diet. Please see discharge medication reconciliation medication list. Follow-up with primary care. Jem Ramirez MD May 07, 2017 01:27
== END 2017-05-06 13:22 | disposition home health service (06) | DRG 433 ==
LOC: PHED 12:02 → PHEDA 14:30 → PH3B 16:51
PROVIDERS: ADMIT Internal Medicine; ATTEND Internal Medicine
DX: K70.40 Alcoholic hepatic failure without coma (principal); E87.0 Hyperosmolality and hypernatremia; K70.31 Alcoholic cirrhosis of liver with ascites; D69.6 Thrombocytopenia, unspecified; E72.20 Disorder of urea cycle metabolism, unspecified; D64.9 Anemia, unspecified; E87.1 Hypo-osmolality and hyponatremia; K21.9 Gastro-esophageal reflux disease without esophagitis; I10 Essential (primary) hypertension; E03.9 Hypothyroidism, unspecified; E87.6 Hypokalemia; F10.21 Alcohol dependence, in remission; Z88.5 Allergy status to narcotic agent; Z88.6 Allergy status to analgesic agent; Z91.14 Patient's other noncompliance with medication regimen; Z96.642 Presence of left artificial hip joint
CPT/HCPCS: 49083; 80053; 81001; 82140; 83735; 84439; 84443; 85025; 85610; 85730; 96360; C1729; J7030; P9047

== ENCOUNTER 2017-05-18 10:16 | Inpatient (IN) | payer MEDICAID ==
[2017-05-18] VITALS (9 sets, daily range): BP systolic 86–95; BP diastolic 50–64; PULSE 54–70; RESP 12–20; TEMP 97–98.9; O2SAT 100
[~2017-05-18 10:16] MED LIST changes: +THIA100 PO
[2017-05-18] MEDS ORDERED: SODIUM CHLOR 0.9% 1000 ML INJ 1,000 ML IV STA (10:29)
--- NOTE | 2017-05-18 10:38 | PD ---
HPI Chief Complaint: Altered Mental Status Time Seen by Provider: 10:26 Travel History International Travel<30 days: No Contact w/Intl Traveler<30days: No Traveled to known affect area: No History of Present Illness HPI This 52-year-old female is brought by her because of altered mental status. History is obtained from her . 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 He says that she seemed okay yesterday. She was active in walking and talking normally. This morning he found her stuporous. There is no history of head trauma. She does have a history of hepatic encephalopathy and he says that this is how she gets with the encephalopathy. She is on lactulose and he thinks she's been taking it. She stopped drinking about 4 years ago. She is not on any sedative medication. He says she is being evaluated for liver transplant for the hospital in [place]. PFSH Past Medical History Hx Anticoagulant Therapy: No Arthritis: Yes Asthma: Yes Autoimmune Disease: No Anxiety: Yes Depression: Yes Heart Rhythm Problems: No Cancer: No Cardiovascular Problems: Yes (htn on meds) High Cholesterol: No Chemotherapy: No Chest Pain: No Congestive Heart Failure: No Cirrhosis: Yes (End stage ) COPD: No Cerebrovascular Accident: No Diabetes: No Diminished Hearing: No Endocrine: Yes Gastrointestinal Disorders: Yes (Upper GIB, varices, bleeding ulcers ) GERD: No Genitourinary: No Headaches: No Hepatitis: Yes (Alcoholic ) Hiatal Hernia: Yes Heparin Induced Thrombocytopen: No Hypertension: No Immune Disorder: No Implanted Vascular Access Dvce: No Kidney Stones: No Medical other: Yes (ESOPHAGEAL VARICES; LIVER CIRRHOSIS; THROMBOCYTOPENIA ;) Musculoskeletal: Yes (neck is "puffy" pt states "its puffy cause i have a endocrine problem") Neurologic: No Psychiatric: Yes Reproductive: No Respiratory: No Immunizations Current: Yes Migraines: No Radiation Therapy: No Renal Failure: No Seizures: No Sickle Cell Disease: No Sleep Apnea: No Thyroid Disease: Yes (Hypothyroidism) Ulcer: No Influenza Vaccination: Yes ?: Not Menopausal: Yes Past Surgical History Abdominal Surgery: Yes (Umb. hernia repair ) AICD: No Body Medical Devices: NONE Cardiac Surgery: No Cholecystectomy: Yes (2006) Ear Surgery: No Endocrine Surgery: No Eye Surgery: No Genitourinary Surgery: No Gynecologic Surgery: No Hysterectomy: No Insulin Pump: No Joint Replacement: Yes (Lt. hip) Neurologic Surgery: No Oral Surgery: No Pacemaker: No Thoracic Surgery: No Other Surgery: Yes (Cholecystectomy) Social History Alcohol Use: No (H/O alcoholism ) Tobacco Use: No Substance Use: No Allergies-Medications (Allergen,Severity, Reaction): Coded Allergies: aspirin (Unverified Adverse Reaction, Severe, Bleeding, 05/18/17) codeine (Unverified Adverse Reaction, Severe, Vomiting, 05/18/17) morphine (Unverified Adverse Reaction, Severe, 05/18/17) Patient's states someone overdosed her on XR morphine nortriptyline (Unverified Adverse Reaction, Severe, Hallucinations, vomiting , 05/18/17) Reported Meds & Prescriptions Reported Meds & Active Scripts Active Gnp Vitamin B-1 (Thiamine HCl) 100 Mg Tab 100 Mg PO DAILY 30 Days Lactulose Liq (Lactulose) 10 Gm/15 Ml Soln 30 Ml PO TID PRN 30 Days Xifaxan (Rifaximin) 550 Mg Tab 550 Mg PO BID Zofran Odt (Ondansetron Odt) 4 Mg Tab 4 Mg SL Q8HR PRN Spironolactone 50 Mg Tab 50 Mg PO BIDPC Potassium Chloride ER (Potassium Chloride) 10 Meq Tab 10 Meq PO DAILY Magnesium Oxide 400 Mg Tab 400 Mg PO DAILY 30 Days Levothyroxine (Levothyroxine Sodium) 50 Mcg Tab 50 Mcg PO DAILY Reported Pantoprazole (Pantoprazole Sodium) 40 Mg Tab 40 Mg PO DAILY Furosemide 40 Mg Tab 40 Mg PO DAILY Review of Systems ROS Limitations: Altered Mental Status General / Constitutional: No: Fever HENT: No: Headaches Respiratory: No: Cough, Shortness of Breath Gastrointestinal: No: Vomiting, Diarrhea Skin: No Rash Neurologic: Positive: Weakness, No: Focal Abnormalities Hematologic/Lymphatic: No: Easy Bruising Physical Exam Narrative GENERAL: Well-developed female. SKIN: Focused skin assessment warm/dry. HEAD: Atraumatic. Normocephalic. EYES: Pupils equal and round. No scleral icterus. No injection or drainage. ENT: No nasal bleeding or discharge. Mucous membranes pink and moist. NECK: Trachea midline. No JVD. CARDIOVASCULAR: Regular rate and rhythm. No murmur appreciated. RESPIRATORY: No accessory muscle use. Clear to auscultation. Breath sounds equal bilaterally. GASTROINTESTINAL: Abdomen soft, non-tender, nondistended. Hepatic and splenic margins not palpable. MUSCULOSKELETAL: No obvious deformities. No clubbing. No cyanosis. No edema. NEUROLOGICAL: The patient is stuporous. She does answer some questions with one -word answers. She tends to fall asleep. She is too lethargic for strength or psychiatric testing Data Data Last Documented VS Vital Signs Date Time Temp Pulse Resp B/P (MAP) Pulse Ox O2 Delivery O2 Flow Rate FiO2 05/18/17 12:52 59 14 95/52 (66) 100 Room Air 05/18/17 10:30 98.2 Orders Orders Electrocardiogram (05/18/17 10:29) Complete Blood Count With Diff (05/18/17 10:29) Comprehensive Metabolic Panel (05/18/17 10:29) Prothrombin Time / Inr (Pt) (05/18/17 10:29) Act Partial Throm Time (Ptt) (05/18/17 10:29) Urinalysis - C+S If Indicated (05/18/17 10:29) Magnesium (Mg) (05/18/17 10:29) Ammonia (05/18/17 10:29) Ct Brain W/O Iv Contrast(Rout) (05/18/17 10:29) Drug Screen, Random Urine (05/18/17 10:29) Alcohol (Ethanol) (05/18/17 10:29) Sodium Chlor 0.9% 1000 Ml Inj (Ns 1000 M (05/18/17 10:29) Lactulose Liq (Lactulose Liq) (05/18/17 11:00) Admit Order (Ed Use Only) (05/18/17 12:48) Labs Laboratory Tests Test 05/18/17 10:55 05/18/17 12:07 White Blood Count 4.9 TH/MM3 Red Blood Count 3.13 MIL/MM3 Hemoglobin 10.4 GM/DL Hematocrit 30.3 % Mean Corpuscular Volume 96.8 FL Mean Corpuscular Hemoglobin 33.1 PG Mean Corpuscular Hemoglobin Concent 34.2 % Red Cell Distribution Width 17.5 % Platelet Count 153 TH/MM3 Mean Platelet Volume 7.6 FL Neutrophils (%) (Auto) 56.0 % Lymphocytes (%) (Auto) 23.8 % Monocytes (%) (Auto) 12.0 % Eosinophils (%) (Auto) 5.7 % Basophils (%) (Auto) 2.5 % Neutrophils # (Auto) 2.7 TH/MM3 Lymphocytes # (Auto) 1.2 TH/MM3 Monocytes # (Auto) 0.6 TH/MM3 Eosinophils # (Auto) 0.3 TH/MM3 Basophils # (Auto) 0.1 TH/MM3 CBC Comment DIFF FINAL Differential Comment Prothrombin Time 15.9 SEC Prothromb Time International Ratio 1.4 RATIO Activated Partial Thromboplast Time 36.2 SEC Blood Urea Nitrogen 12 MG/DL Creatinine 0.78 MG/DL Random Glucose 97 MG/DL Total Protein 6.6 GM/DL Albumin 2.1 GM/DL Calcium Level 7.4 MG/DL Magnesium Level 1.9 MG/DL Alkaline Phosphatase 160 U/L Aspartate Amino Transf (AST/SGOT) 46 U/L Alanine Aminotransferase (ALT/SGPT) 33 U/L Total Bilirubin 1.9 MG/DL Sodium Level 131 MEQ/L Potassium Level 4.0 MEQ/L Chloride Level 103 MEQ/L Carbon Dioxide Level 19.0 MEQ/L Anion Gap 9 MEQ/L Estimat Glomerular Filtration Rate 78 ML/MIN Protein Corrected Calcium 7.7 MG/DL Ammonia 101 MCMOL/L Ethyl Alcohol Level LESS THAN 3 MG/DL MDM Medical Decision Making Medical Screen Exam Complete: Yes Emergency Medical Condition: Yes Medical Record Reviewed: Yes Differential Diagnosis Differential includes hepatic encephalopathy, electrolyte imbalance, subdural hematoma Narrative Course CT scan of the brain shows cerebral atrophy which has been seen on previous scans. There is no acute intracranial abnormality. Her ammonia level is 101. Hemoglobin is 10.4 with a white count of 4.9. Impression is hepatic encephalopathy. She will be admitted for further treatment. Diagnosis Primary Impression: Hepatic encephalopathy Admitting Information Admitting Physician Requests: Admit Flaco Torres MD May 18, 2017 10:38
[2017-05-18] MEDS: LACTULOSE SYRUP 20 GM/30 ML CUP PO ONE ×2 (11:00→14:06)
[2017-05-18 11:02] LABS: AUTOMATED NEUTROPHIL # 2.7 TH/MM3 (1.8-7.7); BASOPHIL # 0.1 TH/MM3 (0-0.2); BASOPHIL % 2.5 % (0.0-2.0); EOSINOPHIL # 0.3 TH/MM3 (0-0.4); EOSINOPHIL % 5.7 % (0.0-4.0); HEMATOCRIT 30.3 % (35.0-46.0); HEMO FLAGS DIFF FINAL; LYMPH % 23.8 % (9.0-44.0); LYMPHOCYTE # 1.2 TH/MM3 (1.0-4.8); MEAN CELL VOLUME 96.8 FL (80.0-100.0); MEAN CORPUSCULAR HEMOGLOBIN 33.1 PG (27.0-34.0); MEAN CORPUSCULAR HGB CONC 34.2 % (32.0-36.0); PLATELET COUNT 153 TH/MM3 (150-450); RED BLOOD COUNT 3.13 MIL/MM3 (4.00-5.30); RED CELL DISTRIBUTION WIDTH 17.5 % (11.6-17.2); WHITE BLOOD COUNT 4.9 TH/MM3 (4.0-11.0)
--- NOTE | 2017-05-18 11:42 | RADRPT ---
EXAM DATE/TIME: 05/18/2017 11:23 [facility] COMPARISON: CT BRAIN W/O CONTRAST, March 23, 2017, 15:17. INDICATIONS : Altered mental status. RADIATION DOSE: 61.41 CTDIvol (mGy) ; Patient motion MEDICAL HISTORY : Cirrhosis. Hepatitis. SURGICAL HISTORY : Cholecystectomy. ENCOUNTER: Initial ACUITY: 1 day PAIN SCALE: 0/10 LOCATION: cranial TECHNIQUE: Multiple contiguous axial images were obtained of the head. Using automated exposure control and adj ustment of the mA and/or kV according to patient size, radiation dose was kept as low as reasonably a chievable to obtain optimal diagnostic quality images. DICOM format image data is available electro nically for review and comparison. FINDINGS: CEREBRUM: Redemonstration of moderate diffuse cerebral atrophy. The ventricles are normal for degree of atrophy . Nonspecific bilateral basal ganglia calcifications. No evidence of midline shift, mass lesion, hemo rrhage or acute infarction. No extra-axial fluid collections are seen. POSTERIOR FOSSA: The cerebellum and brainstem are intact. The 4th ventricle is midline. The cerebellopontine angle i s unremarkable. EXTRACRANIAL: The visualized portion of the orbits is intact. SKULL: The calvaria is intact. No evidence of skull fracture. CONCLUSION: 1. Redemonstration of moderate diffuse cerebral atrophy out of proportion for age. 2. No acute intracranial abnormality. Martin Olmos MD on May 18, 2017 at 11:39 Board Certified Radiologist. This report was verified electronically.
[2017-05-18 12:19] LABS: CHLORIDE 103 MEQ/L (98-107); SODIUM (NA) 131 MEQ/L (136-145)
[2017-05-18 12:23] LABS: APTT (PATIENT) 36.2 SEC (24.3-30.1); INTERNATIONAL NORMALIZED RATIO 1.4 RATIO; PROTHROMBIN TIME - PATIENT 15.9 SEC (9.8-11.6)
[2017-05-18 12:27] LABS: ALT (GPT) 33 U/L (10-53); ANION GAP 9 MEQ/L (5-15); AST (GOT) 46 U/L (15-37); BLOOD UREA NITROGEN 12 MG/DL (7-18); MAGNESIUM 1.9 MG/DL (1.5-2.5)
[2017-05-18 12:32] LABS: ALCOHOL LESS THAN 3 MG/DL (0-5); ALKALINE PHOSPHATASE 160 U/L (45-117); CALCIUM-PROTEIN CORRECTED 7.7 MG/DL (8.5-10.1); GLOMERULAR FILTRATION RATE 78 ML/MIN (>89); TOTAL BILIRUBIN ADULT 1.9 MG/DL (0.2-1.0)
--- NOTE | 2017-05-18 13:20 | HHI.HP ---
HPI Service [facility] Primary Care Physician David Vo MD Admission Diagnosis HEPATIC ENCEPHALOPATHY Diagnoses: (1) Hepatic encephalopathy (2) Hyperammonemia (3) Cirrhosis of liver Chief Complaint: Altered mental status change Travel History International Travel<30 Days: No Contact w/Intl Traveler <30 Da: No Traveled to Known Affected Are: No History of Present Illness 52-year-old female with a history of chronic liver failure, ascites, hepatic encephalopathy who presents with altered mental status. Patient is extremely confused however alert. Per her significant other, she was in her usual state of health until last night before going to bed when she complains of abdominal pain. Around 6AM patient was AMS and could not talk and extremely confused. She was brought to the ED and was found to have Nh3 level of 100+. During my exam, she was alert and only oriented to self. Patient did follow commands. NO report of GI bleed, febrile episode. Per her significant other her belly has been soft and there does not appear to be significant recurrent accumulation of ascitic fluid. Review of Systems Except as stated in HPI: all other systems reviewed are Neg Past Family Social History Past Medical History Chronic alcoholic cirrhosis and quit drinking 4 years ago. Soft to varices Hyper thyroidism Chronic from cytopenia Chronic hyponatremia Past Surgical History Left hip surgery Hernia repair cholecystectomy Multiple variceal bleeds with EGDs with banding. Reported Medications Gnp Vitamin B-1 (Thiamine HCl) 100 Mg Tab 100 Mg PO DAILY 30 Days Lactulose Liq (Lactulose) 10 Gm/15 Ml Soln 30 Ml PO TID PRN 30 Days Xifaxan (Rifaximin) 550 Mg Tab 550 Mg PO BID Zofran Odt (Ondansetron Odt) 4 Mg Tab 4 Mg SL Q8HR PRN Spironolactone 50 Mg Tab 50 Mg PO BIDPC Potassium Chloride ER (Potassium Chloride) 10 Meq Tab 10 Meq PO DAILY Magnesium Oxide 400 Mg Tab 400 Mg PO DAILY 30 Days Levothyroxine (Levothyroxine Sodium) 50 Mcg Tab 50 Mcg PO DAILY Pantoprazole (Pantoprazole Sodium) 40 Mg Tab 40 Mg PO DAILY Furosemide 40 Mg Tab 40 Mg PO DAILY Allergies: Coded Allergies: aspirin (Unverified Adverse Reaction, Severe, Bleeding, 05/18/17) codeine (Unverified Adverse Reaction, Severe, Vomiting, 05/18/17) morphine (Unverified Adverse Reaction, Severe, 05/18/17) Patient's states someone overdosed her on XR morphine nortriptyline (Unverified Adverse Reaction, Severe, Hallucinations, vomiting , 05/18/17) Family History Adopted Social History Denies tobacco or alcohol Physical Exam Vital Signs Vital Signs Date Time Temp Pulse Resp B/P (MAP) Pulse Ox O2 Delivery O2 Flow Rate FiO2 05/18/17 12:52 59 14 95/52 (66) 100 Room Air 05/18/17 12:02 57 14 94/56 (69) 100 Room Air 05/18/17 11:15 54 14 91/50 (64) 100 Room Air 05/18/17 11:01 (68) 05/18/17 10:30 Room Air 05/18/17 10:30 98.2 63 12 89/57 (68) 100 Room Air Physical Exam GENERAL: NAD SKIN: No rashes, ecchymoses or lesions. Cool and dry. HEAD: Atraumatic. Normocephalic. No temporal or scalp tenderness. EYES: Pupils equal round and reactive. Extraocular motions intact. No scleral icterus. No injection or drainage. ENT: Nose without bleeding, purulent drainage or septal hematoma. Throat without erythema, tonsillar hypertrophy or exudate. Uvula midline. Airway patent. NECK: Trachea midline. No JVD or lymphadenopathy. Supple, nontender, no meningeal signs. CARDIOVASCULAR: Regular rate and rhythm without murmurs, gallops, or rubs. RESPIRATORY: Clear to auscultation. Breath sounds equal bilaterally. No wheezes , rales, or rhonchi. GASTROINTESTINAL: Abdomen soft, non-tender, nondistended. No hepato-splenomegaly , or palpable masses. No guarding. MUSCULOSKELETAL: Extremities without clubbing, cyanosis, or edema. No joint tenderness, effusion, or edema noted. No calf tenderness. Negative Homans sign bilaterally. NEUROLOGICAL: Awake and alert. Cranial nerves II through XII intact. Motor and sensory grossly within normal limits. Five out of 5 muscle strength in all muscle groups. Laboratory Laboratory Tests Test 05/18/17 10:55 05/18/17 12:07 White Blood Count 4.9 Red Blood Count 3.13 Hemoglobin 10.4 Hematocrit 30.3 Mean Corpuscular Volume 96.8 Mean Corpuscular Hemoglobin 33.1 Mean Corpuscular Hemoglobin Concent 34.2 Red Cell Distribution Width 17.5 Platelet Count 153 Mean Platelet Volume 7.6 Neutrophils (%) (Auto) 56.0 Lymphocytes (%) (Auto) 23.8 Monocytes (%) (Auto) 12.0 Eosinophils (%) (Auto) 5.7 Basophils (%) (Auto) 2.5 Neutrophils # (Auto) 2.7 Lymphocytes # (Auto) 1.2 Monocytes # (Auto) 0.6 Eosinophils # (Auto) 0.3 Basophils # (Auto) 0.1 CBC Comment DIFF FINAL Differential Comment Prothrombin Time 15.9 Prothromb Time International Ratio 1.4 Activated Partial Thromboplast Time 36.2 Blood Urea Nitrogen 12 Creatinine 0.78 Random Glucose 97 Total Protein 6.6 Albumin 2.1 Calcium Level 7.4 Magnesium Level 1.9 Alkaline Phosphatase 160 Aspartate Amino Transf (AST/SGOT) 46 Alanine Aminotransferase (ALT/SGPT) 33 Total Bilirubin 1.9 Sodium Level 131 Potassium Level 4.0 Chloride Level 103 Carbon Dioxide Level 19.0 Anion Gap 9 Estimat Glomerular Filtration Rate 78 Protein Corrected Calcium 7.7 Ammonia 101 Ethyl Alcohol Level LESS THAN 3 Result Diagram: 05/18/17 1055 05/18/17 1207 Imaging Last Impressions Head CT 05/18/17 1029 Signed Impressions: Service Date/Time: Thursday, May 18, 2017 11:23 - CONCLUSION: 1. Redemonstration of moderate diffuse cerebral atrophy out of proportion for age. 2. No acute intracranial abnormality. MD Margareth Marsh VTE Risk Assessment Caprini VTE Risk Assessment: No/Low Risk (score <= 1) VTE Pharm Contraindication: High risk for bleeding Caprini Risk Assessment Model Point Value = 1 Point Value = 2 Point Value = 3 Point Value = 5 Age 41-60 Minor surgery BMI > 25 kg/m2 Swollen legs Varicose veins or History of unexplained or recurrent spontaneous Oral contraceptives or hormone replacement Sepsis (< 1 month) Serious lung disease, including pneumonia (< 1 month) Abnormal pulmonary function Acute myocardial infarction Congestive heart failure (< 1 month) History of inflammatory bowel disease Medical patient at bed rest Age 61-74 Arthroscopic surgery Major open surgery (> 45 min) Laparoscopic surgery (> 45 min) Malignancy Confined to bed (> 72 hours) Immobilizing plaster cast Central venous access Age >= 75 History of VTE Family history of VTE Factor V Leiden Prothrombin [id number] Lupus anticoagulant Anticardiolipin antibodies Elevated serum homocysteine Heparin-induced thrombocytopenia Other congenital or acquired thrombophilia Stroke (< 1 month) Elective arthroplasty Hip, pelvis, or leg fracture Acute spinal cord injury (< 1 month) Prophylaxis Regimen Total Risk Factor Score Risk Level Prophylaxis Regimen 0-1 Low Early ambulation 2 Moderate Order ONE of the following: *Sequential Compression Device (SCD) *Heparin 5000 units SQ BID 3-4 Higher Order ONE of the following medications: *Heparin 5000 units SQ TID *Enoxaparin/Lovenox 40 mg SQ daily (WT < 150 kg, CrCl > 30 mL/min) *Enoxaparin/Lovenox 30 mg SQ daily (WT < 150 kg, CrCl > 10-29 mL/min) *Enoxaparin/Lovenox 30 mg SQ BID (WT < 150 kg, CrCl > 30 mL/min) AND/OR *Sequential Compression Device (SCD) 5 or more Highest Order ONE of the following medications: *Heparin 5000 units SQ TID (Preferred with Epidurals) *Enoxaparin/Lovenox 40 mg SQ daily (WT < 150 kg, CrCl > 30 mL/min) *Enoxaparin/Lovenox 30 mg SQ daily (WT < 150 kg, CrCl > 10-29 mL/min) *Enoxaparin/Lovenox 30 mg SQ BID (WT < 150 kg, CrCl > 30 mL/min) AND *Sequential Compression Device (SCD) Assessment and Plan Problem List: (1) Hepatic encephalopathy ICD Code: K72.90 - Hepatic failure, unspecified without coma Status: Acute (2) Cirrhosis of liver Status: Chronic (3) Hyperammonemia ICD Code: E72.20 - Hyperammonemia Status: Acute Assessment and Plan 52-year-old female with Severe hepatic encephalopathy Chronic alcoholic cirrhosis. Head CT noted and review by me without any intracranial abnormalities Start lactulose, rifaximin, diuretics, propranolol. Swallow eval to be performed prior to feeding Consider GI consultation if no improvement Hyponatremia. 131. Chronic. Secondary to liver disease. Continue to monitor. Chronic anemia. Appears at recent baseline. Continue to monitor. Hypothyroidism. Chronic. Resume home medication. GERD. History of gastric varices with banding in the past Continue home PPI. DVT prophylaxis. SCDs. Code Status Full code Discussed Condition With patient, significant other, ED physician Physician Certification 2 Midnight Certification Type: Admission for Inpatient Services Order for Inpatient Services The services are ordered in accordance with Medicare regulations or non- Medicare payer requirements, as applicable. In the case of services not specified as inpatient-only, they are appropriately provided as inpatient services in accordance with the 2-midnight benchmark. Estimated LOS (days): 2 days is the estimated time the patient will need to remain in the hospital, assuming treatment plan goals are met and no additional complications. Post-Hospital Plan: Not yet determined Chandrakant Andersen MD May 18, 2017 13:19
[2017-05-18] MEDS ORDERED: ACETAMINOPHEN 325 MG TAB PO PRN ×2 (13:30)
[2017-05-18] MEDS ORDERED: ONDANSETRON HCL 4 MG/2 ML VIAL IVP PRN (13:30)
[2017-05-18] MEDS ORDERED: LACTULOSE LIQ 300 ML in WATER STERILE FOR IRR BTL 700 ML RECTAL ONE (13:30)
[2017-05-18] MEDS ORDERED: SODIUM CHLORIDE 0.9% FLUSH 10 ML FLUSH IV FLUSH PRN (13:30)
[2017-05-18] MEDS ORDERED: NALOXONE HCL 0.4 MG/ML AMP IV PUSH PRN (13:30)
[2017-05-18] MEDS: LACTULOSE SYRUP 20 GM/30 ML CUP PO SCH ×2 (17:09→20:57)
[2017-05-18] MEDS: SPIRONOLACTONE 50 MG TAB PO SCH (17:09)
[2017-05-18 17:53] LABS: BLOOD, URINE NEG (NEG); GLUCOSE,URINE NEG (NEG); KETONE, URINE NEG (NEG); NITRITE,URINE NEG (NEG); PH, URINE 7.5 (5.0-8.5)
[2017-05-18 18:02] LABS: COMMENT (UR) CULT NOT INDICATED; CULTURE IF INDICATED CULT NOT INDICATED; SQUAMOUS EPITHELIAL CELL URINE 0-5 /hpf (0-5); URINE COLOR YELLOW (YELLW/STRAW); WBC, URINE 0-2 /hpf (0-5)
[2017-05-18] MEDS: SODIUM CHLORIDE 0.9% FLUSH 10 ML FLUSH IV FLUSH SCH (20:57)
[2017-05-18] MEDS: RIFAXIMIN 550 MG TAB PO SCH (20:57)
[2017-05-18] MEDS: PROPRANOLOL HCL 10 MG TAB PO SCH (20:57)
[2017-05-19] VITALS: BP 87/51; PULSE 74; RESP 20; TEMP 96.7; O2SAT 99
[2017-05-19 07:59] LABS: AUTOMATED NEUTROPHIL # 1.6 TH/MM3 (1.8-7.7); BASOPHIL % 0.3 % (0.0-2.0); EOSINOPHIL # 0.3 TH/MM3 (0-0.4); EOSINOPHIL % 8.7 % (0.0-4.0); HEMATOCRIT 28.5 % (35.0-46.0); LYMPH % 27.3 % (9.0-44.0); LYMPHOCYTE # 0.9 TH/MM3 (1.0-4.8); MEAN CELL VOLUME 96.4 FL (80.0-100.0); MEAN CORPUSCULAR HGB CONC 33.1 % (32.0-36.0); MONO % 16.8 % (0.0-8.0); NEUT % 46.9 % (16.0-70.0); PLATELET COUNT 99 TH/MM3 (150-450); RED BLOOD COUNT 2.96 MIL/MM3 (4.00-5.30); RED CELL DISTRIBUTION WIDTH 16.6 % (11.6-17.2); WHITE BLOOD COUNT 3.4 TH/MM3 (4.0-11.0)
[2017-05-19 08:00] VITALS: BP 99/58; PULSE 64; RESP 18; TEMP 97.8; O2SAT 100
[2017-05-19 08:00] LABS: CHLORIDE 109 MEQ/L (98-107); POTASSIUM 3.8 MEQ/L (3.5-5.1); SODIUM (NA) 138 MEQ/L (136-145)
[2017-05-19 08:02] LABS: HEMO FLAGS AUTO DIFF
[2017-05-19 08:09] LABS: ALT (GPT) 30 U/L (10-53); AST (GOT) 44 U/L (15-37)
[2017-05-19 08:11] LABS: ANION GAP 12 MEQ/L (5-15); BICARBONATE 17.2 MEQ/L (21.0-32.0); BLOOD UREA NITROGEN 11 MG/DL (7-18); TOTAL BILIRUBIN ADULT 2.2 MG/DL (0.2-1.0)
[2017-05-19 08:12] LABS: ALKALINE PHOSPHATASE 125 U/L (45-117)
[2017-05-19 08:14] LABS: GLOMERULAR FILTRATION RATE 85 ML/MIN (>89)
[2017-05-19 08:45] LABS: SCAN/DIFF AUTO DIFF CONFIRMED
[2017-05-19] MEDS: FUROSEMIDE 40 MG TAB PO SCH (09:00)
[2017-05-19] MEDS ORDERED: LEVOTHYROXINE SODIUM 50 MCG TAB PO SCH (09:00)
[2017-05-19] MEDS: SPIRONOLACTONE 50 MG TAB PO SCH ×2 (09:00→17:03)
[2017-05-19] MEDS: THIAMINE HCL 100 MG TAB PO SCH (09:09)
[2017-05-19] MEDS: RIFAXIMIN 550 MG TAB PO SCH ×2 (09:09→20:51)
[2017-05-19] MEDS: LACTULOSE SYRUP 20 GM/30 ML CUP PO SCH ×4 (09:09→20:51)
[2017-05-19] MEDS: PROPRANOLOL HCL 10 MG TAB PO SCH ×2 (09:10→20:51)
[2017-05-19] MEDS: SODIUM CHLORIDE 0.9% FLUSH 10 ML FLUSH IV FLUSH SCH ×2 (09:10→20:50)
[2017-05-19] MEDS: POTASSIUM CHLORIDE 10 MEQ CONTROLLED RELEASE TAB PO SCH (09:10)
[2017-05-19] MEDS: MAGNESIUM OXIDE 400 MG TAB PO SCH (09:10)
[2017-05-19] MEDS ORDERED: INFLUENZA VIRUS VACCINE (QUADRIVALENT) 0.5 ML SYR IM ONE (10:00)
--- NOTE | 2017-05-19 10:14 | HHI.PR ---
Subjective Remarks Follow-up hepatic encephalopathy 05/19/17-patient seen and examined, alert and oriented 3. Patient states, she was brought to the hospital because of ammonia level was too high, however now she is having appropriate conversation Objective Vitals Vital Signs Date Time Temp Pulse Resp B/P (MAP) Pulse Ox O2 Delivery O2 Flow Rate FiO2 05/19/17 08:00 97.8 64 18 99/58 (72) 100 05/19/17 00:00 96.7 74 20 87/51 (63) 99 05/18/17 20:00 97.0 66 20 94/54 (67) 100 05/18/17 16:00 98.9 70 14 86/52 (63) 100 05/18/17 15:05 97.7 69 14 93/64 (74) 100 05/18/17 14:57 97.7 69 14 93/64 (74) 100 05/18/17 14:49 05/18/17 14:12 Room Air 05/18/17 13:49 57 15 93/50 (64) 100 Room Air 05/18/17 12:52 59 14 95/52 (66) 100 Room Air 05/18/17 12:02 57 14 94/56 (69) 100 Room Air 05/18/17 11:15 54 14 91/50 (64) 100 Room Air 05/18/17 11:01 (68) 05/18/17 10:30 Room Air 05/18/17 10:30 98.2 63 12 89/57 (68) 100 Room Air I/O 05/18/17 05/18/17 05/18/17 05/19/17 05/19/17 05/19/17 07:00 15:00 23:00 07:00 15:00 23:00 Intake Total 1000 ml 120 ml Output Total 125 ml Balance 1000 ml -125 ml 120 ml Intake Oral 120 ml IV Total 1000 ml Output Urine Total 125 ml # Voids 1 3 # Bowel Movements 3 Result Diagram: 05/19/17 0735 05/19/17 0735 Imaging Last Impressions Head CT 05/18/17 1029 Signed Impressions: Service Date/Time: Thursday, May 18, 2017 11:23 - CONCLUSION: 1. Redemonstration of moderate diffuse cerebral atrophy out of proportion for age. 2. No acute intracranial abnormality. Martin Olmos MD Objective Remarks GENERAL: NAD SKIN: Warm and dry. HEAD: Normocephalic. EYES: No scleral icterus. No injection or drainage. NECK: Supple, trachea midline. No JVD or lymphadenopathy. CARDIOVASCULAR: Regular rate and rhythm without murmurs, gallops, or rubs. RESPIRATORY: Breath sounds equal bilaterally. No accessory muscle use. GASTROINTESTINAL: Abdomen soft, non-tender, nondistended. MUSCULOSKELETAL: No cyanosis, or edema. BACK: Nontender without obvious deformity. No CVA tenderness. Procedures none A/P Problem List: (1) Hepatic encephalopathy ICD Code: K72.90 - Hepatic failure, unspecified without coma Status: Resolved (2) Hyperammonemia ICD Code: E72.20 - Hyperammonemia Status: Acute (3) Cirrhosis of liver Status: Chronic Assessment and Plan 52-year-old female with Severe hepatic encephalopathy-improving Chronic alcoholic cirrhosis. Head CT without any intracranial abnormalities Continue lactulose, rifaximin, diuretics, propranolol. Hyponatremia-resolved Chronic anemia. Appears at recent baseline. Continue to monitor. Coagulopathy Due to liver disease stable continue to monitor. Hypothyroidism. Chronic. Continue home medication. GERD. History of gastric varices with banding in the past Continue home PPI. DVT prophylaxis. SCDs. Patient's condition tremendously improved since admission, therefore she will be discharged home Chandrakant Andersen MD May 19, 2017 10:14
[2017-05-19] MEDS ORDERED: FURO1TAB62 PO (10:20)
[2017-05-19 12:00] VITALS: BP 111/60; PULSE 75; RESP 18; TEMP 97.2; O2SAT 100
[2017-05-19] MEDS ORDERED: RESP: ALBUTEROL 2.5 MG/IPRATROPIUM 0.5 MG NEB (PRN) NEB (15:00)
[2017-05-19 20:00] VITALS: BP 105/59; PULSE 43; RESP 16; TEMP 99.1; O2SAT 96
[2017-05-20] VITALS: BP 87/56; PULSE 77; RESP 16; TEMP 98.8; O2SAT 95
[2017-05-20 04:00] VITALS: BP 82/48; PULSE 75; RESP 16; TEMP 98.6; O2SAT 95
[2017-05-20] MEDS ORDERED: LEVOTHYROXINE SODIUM 50 MCG TAB PO SCH (06:00)
[2017-05-20 08:00] VITALS: BP 103/65; PULSE 75; RESP 14; TEMP 96.7; O2SAT 97
--- NOTE | 2017-05-20 08:42 | EKG ---
Date Performed: 05/18/2017 Time Performed: 10:25:13 PTAGE: 52 years EKG: Sinus rhythm NORMAL ECG PREVIOUS TRACING : 04/10/2017 10.53 DOCTOR: Jesus Alberto Escalante Interpretating Date/Time 05/20/2017 08:41:41
[2017-05-20] MEDS: SODIUM CHLORIDE 0.9% FLUSH 10 ML FLUSH IV FLUSH SCH (09:17)
[2017-05-20] MEDS: THIAMINE HCL 100 MG TAB PO SCH (09:18)
[2017-05-20] MEDS: PROPRANOLOL HCL 10 MG TAB PO SCH (09:18)
[2017-05-20] MEDS: FUROSEMIDE 40 MG TAB PO SCH (09:18)
[2017-05-20] MEDS: POTASSIUM CHLORIDE 10 MEQ CONTROLLED RELEASE TAB PO SCH (09:18)
[2017-05-20] MEDS: RIFAXIMIN 550 MG TAB PO SCH (09:18)
[2017-05-20] MEDS: SPIRONOLACTONE 50 MG TAB PO SCH (09:18)
[2017-05-20] MEDS: LACTULOSE SYRUP 20 GM/30 ML CUP PO SCH (09:19)
[2017-05-20] MEDS: MAGNESIUM OXIDE 400 MG TAB PO SCH (09:19)
--- NOTE | 2017-05-20 11:17 | HHI.PR ---
Subjective Remarks Follow-up hepatic encephalopathy 05/19/17-patient seen and examined, alert and oriented 3. Patient states, she was brought to the hospital because of ammonia level was too high, however now she is having appropriate conversation 05/20/17-patient seen and examined, stable, alert and oriented 3. Afebrile. Good appetite. Nh3 down to 89 and according to patient it's back to her baseline Objective Vitals Vital Signs Date Time Temp Pulse Resp B/P (MAP) Pulse Ox O2 Delivery O2 Flow Rate FiO2 05/20/17 08:00 96.7 75 14 103/65 (78) 97 05/20/17 04:00 98.6 75 16 82/48 (59) 95 05/20/17 00:00 98.8 77 16 87/56 (66) 95 05/19/17 20:00 99.1 43 16 105/59 (74) 96 05/19/17 12:00 97.2 75 18 111/60 (77) 100 I/O 05/19/17 05/19/17 05/19/17 05/20/17 05/20/17 05/20/17 07:00 15:00 23:00 07:00 15:00 23:00 Intake Total 120 ml 625 ml 300 ml 222 ml Balance 120 ml 625 ml 300 ml 222 ml Intake Oral 120 ml 625 ml 300 ml 222 ml # Voids 3 2 2 3 1 # Bowel Movements 3 0 1 3 1 Result Diagram: 05/19/17 0735 05/19/17 0735 Objective Remarks GENERAL: NAD SKIN: Warm and dry. HEAD: Normocephalic. EYES: No scleral icterus. No injection or drainage. NECK: Supple, trachea midline. No JVD or lymphadenopathy. CARDIOVASCULAR: Regular rate and rhythm without murmurs, gallops, or rubs. RESPIRATORY: Breath sounds equal bilaterally. No accessory muscle use. GASTROINTESTINAL: Abdomen soft, non-tender, nondistended. MUSCULOSKELETAL: No cyanosis, or edema. BACK: Nontender without obvious deformity. No CVA tenderness. Procedures none A/P Problem List: (1) Hepatic encephalopathy ICD Code: K72.90 - Hepatic failure, unspecified without coma Status: Resolved (2) Hyperammonemia ICD Code: E72.20 - Hyperammonemia Status: Acute (3) Cirrhosis of liver Status: Chronic Assessment and Plan 52-year-old female with Severe hepatic encephalopathy-improved Chronic alcoholic cirrhosis. Head CT without any intracranial abnormalities Continue lactulose, rifaximin, diuretics, propranolol. Ammonia level 89 Hyponatremia-resolved Chronic anemia. Appears at recent baseline. Continue to monitor. Coagulopathy Due to liver disease stable continue to monitor. Hypothyroidism. Chronic. Continue home medication. GERD. History of gastric varices with banding in the past Continue home PPI. DVT prophylaxis. SCDs. Patient's condition tremendously improved since admission, therefore she will be discharged home Chandrakant Andersen MD May 20, 2017 11:17
--- NOTE | 2017-05-20 11:56 | HHI.DS ---
Discharge Summary Admission Date May 18, 2017 at 12:49 Discharge Date: May 20, 2017 Admitting Diagnosis HEPATIC ENCEPHALOPATHY (1) Hepatic encephalopathy ICD Code: K72.90 - Hepatic failure, unspecified without coma Status: Resolved (2) Hyperammonemia ICD Code: E72.20 - Hyperammonemia Status: Acute (3) Cirrhosis of liver Status: Chronic Procedures none Brief History - From Admission 52-year-old female with a history of chronic liver failure, ascites, hepatic encephalopathy who presents with altered mental status. Patient is extremely confused however alert. Per her significant other, she was in her usual state of health until last night before going to bed when she complains of abdominal pain. Around 6AM patient was AMS and could not talk and extremely confused. She was brought to the ED and was found to have Nh3 level of 100+. During my exam, she was alert and only oriented to self. Patient did follow commands. NO report of GI bleed, febrile episode. Per her significant other her belly has been soft and there does not appear to be significant recurrent accumulation of ascitic fluid. CBC/BMP: 05/19/17 0735 05/19/17 0735 Significant Findings Laboratory Tests Test 05/18/17 10:55 05/18/17 12:07 05/18/17 17:25 05/19/17 07:35 Red Blood Count 3.13 MIL/MM3 (4.00-5.30) 2.96 MIL/MM3 (4.00-5.30) Hemoglobin 10.4 GM/DL (11.6-15.3) 9.4 GM/DL (11.6-15.3) Hematocrit 30.3 % (35.0-46.0) 28.5 % (35.0-46.0) Red Cell Distribution Width 17.5 % (11.6-17.2) Monocytes (%) (Auto) 12.0 % (0.0-8.0) 16.8 % (0.0-8.0) Eosinophils (%) (Auto) 5.7 % (0.0-4.0) 8.7 % (0.0-4.0) Basophils (%) (Auto) 2.5 % (0.0-2.0) Prothrombin Time 15.9 SEC (9.8-11.6) Activated Partial Thromboplast Time 36.2 SEC (24.3-30.1) Albumin 2.1 GM/DL (3.4-5.0) 1.9 GM/DL (3.4-5.0) Calcium Level 7.4 MG/DL (8.5-10.1) 7.8 MG/DL (8.5-10.1) Alkaline Phosphatase 160 U/L (45-117) 125 U/L (45-117) Aspartate Amino Transf (AST/SGOT) 46 U/L (15-37) 44 U/L (15-37) Total Bilirubin 1.9 MG/DL (0.2-1.0) 2.2 MG/DL (0.2-1.0) Sodium Level 131 MEQ/L (136-145) Carbon Dioxide Level 19.0 MEQ/L (21.0-32.0) 17.2 MEQ/L (21.0-32.0) Estimat Glomerular Filtration Rate 78 ML/MIN (>89) 85 ML/MIN (>89) Protein Corrected Calcium 7.7 MG/DL (8.5-10.1) Ammonia 101 MCMOL/L (11-32) White Blood Count 3.4 TH/MM3 (4.0-11.0) Platelet Count 99 TH/MM3 (150-450) Neutrophils # (Auto) 1.6 TH/MM3 (1.8-7.7) Lymphocytes # (Auto) 0.9 TH/MM3 (1.0-4.8) Total Protein 6.3 GM/DL (6.4-8.2) Chloride Level 109 MEQ/L (98-107) Test 05/19/17 09:47 05/20/17 06:37 Ammonia 96 MCMOL/L (11-32) 89 MCMOL/L (11-32) PE at Discharge GENERAL: NAD SKIN: Warm and dry. HEAD: Normocephalic. EYES: No scleral icterus. No injection or drainage. NECK: Supple, trachea midline. No JVD or lymphadenopathy. CARDIOVASCULAR: Regular rate and rhythm without murmurs, gallops, or rubs. RESPIRATORY: Breath sounds equal bilaterally. No accessory muscle use. GASTROINTESTINAL: Abdomen soft, non-tender, nondistended. MUSCULOSKELETAL: No cyanosis, or edema. BACK: Nontender without obvious deformity. No CVA tenderness. Hospital Course Chris was admitted secondary to hepatic encephalopathy for which she was treated with ammonia with improvement of symptoms. She was continued on her diuretics for Cirrhosis. Patient's Condition conditions improved prior to discharge. She was continued on her chronic medical conditions. DVT and GI prophylaxis were provided. Pt Condition on Discharge: Fair Discharge Disposition: Discharge Home Discharge Time: <= 30 minutes Discharge Instructions DIET: Follow Instructions for: Heart Healthy Diet Activities you can perform: Regular-No Restrictions Follow up Referrals: PCP Follow-up - 1 Week New Orders: AMMONIA - 3-5 Days New Medications: Furosemide (Lasix) 20 Mg Tab 20 MG PO DAILY for Immunosuppression, #30 TAB 0 Refills Continued Medications: Lactulose Liq (Lactulose Liq) 10 Gm/15 Ml Soln 30 ML PO TID PRN for titrate to 3-4 bm for 30 Days, ML 0 Refills Levothyroxine (Levothyroxine) 50 Mcg Tab 50 MCG PO DAILY for Thyroid, #30 TAB 0 Refills Magnesium Oxide (Magnesium Oxide) 400 Mg Tab 400 MG PO DAILY for Nutritional Supplement for 30 Days, TAB 0 Refills Ondansetron Odt (Zofran Odt) 4 Mg Tab 4 MG SL Q8HR PRN for Nausea/Vomiting, #30 TAB 0 Refills Pantoprazole (Pantoprazole) 40 Mg Tab 40 MG PO DAILY for Reflux, #30 TAB 0 Refills Potassium Chloride ER (Potassium Chloride ER) 10 Meq Tab 10 MEQ PO DAILY for Electrolyte Replacement, #30 TAB 0 Refills Propranolol (Propranolol) 10 Mg Tab 10 MG PO Q12HR for prevent esophageal bleed, #60 TAB 0 Refills Rifaximin (Xifaxan) 550 Mg Tab 550 MG PO BID for Liver, #60 TAB Spironolactone (Spironolactone) 50 Mg Tab 50 MG PO BIDPC for fluid retention, #60 TAB 0 Refills Thiamine HCl (Gnp Vitamin B-1) 100 Mg Tab 100 MG PO DAILY for vitamin for 30 Days, #30 TAB Discontinued Medications: Furosemide (Furosemide) 40 Mg Tab 40 MG PO DAILY, #30 TAB 0 Refills Chandrakant Andersen MD May 20, 2017 11:56
== END 2017-05-20 12:47 | disposition home or self-care (01) | DRG 442 ==
LOC: PHED 10:16 → PHEDA 12:49 → PHICU 15:00 → PH3A 17:42
PROVIDERS: ADMIT Hospitalist; ATTEND Hospitalist
DX: K72.10 Chronic hepatic failure without coma (principal); D68.4 Acquired coagulation factor deficiency; K70.30 Alcoholic cirrhosis of liver without ascites; E87.1 Hypo-osmolality and hyponatremia; D64.9 Anemia, unspecified; Z96.642 Presence of left artificial hip joint; E03.9 Hypothyroidism, unspecified; M19.90 Unspecified osteoarthritis, unspecified site; J45.909 Unspecified asthma, uncomplicated; K21.9 Gastro-esophageal reflux disease without esophagitis; F10.21 Alcohol dependence, in remission; Z23 Encounter for immunization
CPT/HCPCS: 70450; 80053; 80307; 81001; 82140; 83735; 85025; 85610; 85730; 93005; 94664; 96360; 96361; G8996-GN; G8997-GN; G8998-GN; J2405; J7030

== ENCOUNTER 2017-05-27 11:27 | Observation (INO) | payer MEDICAID ==
[~2017-05-27] VITALS: Ht 165.1 cm; Wt 52.2 kg
[~2017-05-27 11:27] MED LIST changes: +FURO1TAB62 PO; -FURO40TA PO
[2017-05-27 11:52] VITALS: BP 99/55; PULSE 59; RESP 16; TEMP 98.1; O2SAT 100
[2017-05-27] MEDS ORDERED: SODIUM CHLORIDE 0.9% FLUSH 10 ML FLUSH IV FLUSH PRN ×2 (13:30→17:00)
[2017-05-27 13:52] VITALS: O2SAT 100
[2017-05-27 13:58] LABS: BLOOD, URINE NEG (NEG); GLUCOSE,URINE NEG (NEG); KETONE, URINE NEG (NEG); NITRITE,URINE NEG (NEG); PH, URINE 7.5 (5.0-8.5)
[2017-05-27 14:10] LABS: APTT (PATIENT) 29.1 SEC (24.3-30.1); INTERNATIONAL NORMALIZED RATIO 1.3 RATIO; PROTHROMBIN TIME - PATIENT 14.9 SEC (9.8-11.6)
[2017-05-27] MEDS ORDERED: SODIUM CHLORID 0.9% 500 ML INJ 500 ML IV ONE (14:45)
[2017-05-27 14:59] LABS: AUTOMATED NEUTROPHIL # 2.8 TH/MM3 (1.8-7.7); BASOPHIL % 0.6 % (0.0-2.0); EOSINOPHIL # 0.4 TH/MM3 (0-0.4); EOSINOPHIL % 8.4 % (0.0-4.0); HEMATOCRIT 30.7 % (35.0-46.0); HEMO FLAGS DIFF FINAL; LYMPH % 23.2 % (9.0-44.0); LYMPHOCYTE # 1.2 TH/MM3 (1.0-4.8); MEAN CELL VOLUME 97.7 FL (80.0-100.0); MEAN CORPUSCULAR HEMOGLOBIN 32.2 PG (27.0-34.0); MEAN CORPUSCULAR HGB CONC 32.9 % (32.0-36.0); MONO % 14.2 % (0.0-8.0); NEUT % 53.6 % (16.0-70.0); PLATELET COUNT 122 TH/MM3 (150-450); RED BLOOD COUNT 3.15 MIL/MM3 (4.00-5.30); RED CELL DISTRIBUTION WIDTH 16.2 % (11.6-17.2); WHITE BLOOD COUNT 5.1 TH/MM3 (4.0-11.0)
[2017-05-27 15:10] LABS: CHLORIDE 106 MEQ/L (98-107); SODIUM (NA) 135 MEQ/L (136-145)
[2017-05-27 15:14] LABS: ANION GAP 10 MEQ/L (5-15); BICARBONATE 18.7 MEQ/L (21.0-32.0)
[2017-05-27 15:15] LABS: BLOOD UREA NITROGEN 12 MG/DL (7-18)
[2017-05-27 15:17] LABS: ALT (GPT) 30 U/L (10-53); AST (GOT) 45 U/L (15-37); GLOMERULAR FILTRATION RATE 58 ML/MIN (>89)
[2017-05-27 15:19] LABS: TOTAL BILIRUBIN ADULT 2.1 MG/DL (0.2-1.0)
[2017-05-27 15:20] LABS: ALKALINE PHOSPHATASE 153 U/L (45-117)
[2017-05-27 15:23] LABS: ALCOHOL LESS THAN 3 MG/DL (0-5)
--- NOTE | 2017-05-27 15:33 | RADRPT ---
EXAM DATE/TIME: 05/27/2017 15:07 [facility] COMPARISON: CT BRAIN W/O CONTRAST, May 18, 2017, 11:23. INDICATIONS : Altered mental status. RADIATION DOSE: 61.48 CTDIvol (mGy) MEDICAL HISTORY : Cirrhosis. Hepatitis C. SURGICAL HISTORY : Cholecystectomy. ENCOUNTER: Initial ACUITY: 1 day PAIN SCALE: 0/10 LOCATION: cranial TECHNIQUE: Multiple contiguous axial images were obtained of the head. Using automated exposure control and adj ustment of the mA and/or kV according to patient size, radiation dose was kept as low as reasonably a chievable to obtain optimal diagnostic quality images. DICOM format image data is available electro nically for review and comparison. FINDINGS: CEREBRUM: The ventricles are normal for age. No evidence of midline shift, mass lesion, hemorrhage or acute in farction. No extra-axial fluid collections are seen. POSTERIOR FOSSA: The cerebellum and brainstem are intact. The 4th ventricle is midline. The cerebellopontine angle i s unremarkable. EXTRACRANIAL: The visualized portion of the orbits is intact. SKULL: The calvaria is intact. No evidence of skull fracture. CONCLUSION: No acute disease. Kaz Anderson MD FACR on May 27, 2017 at 15:31 Board Certified Radiologist. This report was verified electronically.
--- NOTE | 2017-05-27 15:51 | PD ---
HPI Chief Complaint: Altered Mental Status Time Seen by Provider: 13:14 Travel History International Travel<30 days: No Contact w/Intl Traveler<30days: No Traveled to known affect area: No History of Present Illness HPI Patient is a 52-year-old female presents emergency Department with her for evaluation of altered mental status gradually worsening over the past week. 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 She is on liver transplant list but according to her she is [place] and has a rare blood type is difficult to match her. He states that she is been missing doses for lactulose and missed at least 3 doses over the past 2 days. No fevers no cough no congestion no chest pain or shortness of breath per him. When I speak with the patient only thing she wants to tell me is "11 24". She will not give me her name and date of , nursing is having some more success and having her answer yes or no questions and answer her date of the name. PFSH Past Medical History Hx Anticoagulant Therapy: No Arthritis: Yes Asthma: Yes Autoimmune Disease: No Anxiety: Yes Depression: Yes Heart Rhythm Problems: No Cancer: No Cardiovascular Problems: Yes High Cholesterol: No Chemotherapy: No Chest Pain: No Congestive Heart Failure: No Cirrhosis: Yes (End stage ) COPD: No Cerebrovascular Accident: No Diabetes: No Diminished Hearing: No Endocrine: Yes Gastrointestinal Disorders: Yes (Upper GIB, varices, bleeding ulcers ) GERD: No Genitourinary: No Headaches: No Hepatitis: Yes (Alcoholic ) Hiatal Hernia: Yes Heparin Induced Thrombocytopen: No Hypertension: No Immune Disorder: No Implanted Vascular Access Dvce: No Kidney Stones: No Medical other: Yes (ESOPHAGEAL VARICES; LIVER CIRRHOSIS; THROMBOCYTOPENIA ;) Musculoskeletal: Yes (neck is "puffy" pt states "its puffy cause i have a endocrine problem") Neurologic: No Psychiatric: Yes Reproductive: No Respiratory: No Immunizations Current: Yes Migraines: No Radiation Therapy: No Renal Failure: No Seizures: No Sickle Cell Disease: No Sleep Apnea: No Thyroid Disease: Yes (Hypothyroidism) Ulcer: No ?: Not Menopausal: Yes Past Surgical History Abdominal Surgery: Yes (Umb. hernia repair ) AICD: No Body Medical Devices: NONE Cardiac Surgery: No Cholecystectomy: Yes (2006) Ear Surgery: No Endocrine Surgery: No Eye Surgery: No Genitourinary Surgery: No Gynecologic Surgery: No Hysterectomy: No Insulin Pump: No Joint Replacement: Yes (Lt. hip) Neurologic Surgery: No Oral Surgery: No Pacemaker: No Thoracic Surgery: No Other Surgery: Yes (Cholecystectomy) Social History Alcohol Use: No (H/O alcoholism ) Tobacco Use: No Substance Use: No Allergies-Medications (Allergen,Severity, Reaction): Coded Allergies: aspirin (Unverified Adverse Reaction, Severe, Bleeding, 05/27/17) codeine (Unverified Adverse Reaction, Severe, Vomiting, 05/27/17) morphine (Unverified Adverse Reaction, Severe, 05/27/17) Patient's states someone overdosed her on XR morphine nortriptyline (Unverified Adverse Reaction, Severe, Hallucinations, vomiting , 05/27/17) Reported Meds & Prescriptions Reported Meds & Active Scripts Active Lasix (Furosemide) 20 Mg Tab 20 Mg PO DAILY Propranolol (Propranolol HCl) 10 Mg Tab 10 Mg PO Q12HR Lactulose Liq (Lactulose) 10 Gm/15 Ml Soln 30 Ml PO TID PRN 30 Days Xifaxan (Rifaximin) 550 Mg Tab 550 Mg PO BID Zofran Odt (Ondansetron Odt) 4 Mg Tab 4 Mg SL Q8HR PRN Spironolactone 50 Mg Tab 50 Mg PO BIDPC Potassium Chloride ER (Potassium Chloride) 10 Meq Tab 10 Meq PO DAILY Levothyroxine (Levothyroxine Sodium) 50 Mcg Tab 50 Mcg PO DAILY Reported Pantoprazole (Pantoprazole Sodium) 40 Mg Tab 40 Mg PO DAILY Review of Systems ROS Limitations: Altered Mental Status Physical Exam Narrative GENERAL: Well-developed well-nourished, appears much older and stated age, confused but nontoxic appearance. SKIN: Focused skin assessment warm/dry. HEAD: Atraumatic. Normocephalic. EYES: Pupils equal and round. No scleral icterus. No injection or drainage. ENT: No nasal bleeding or discharge. Mucous membranes pink and Dry with cracked lips. NECK: Trachea midline. No JVD. CARDIOVASCULAR: Regular rate and rhythm. No murmur appreciated. RESPIRATORY: No accessory muscle use. Clear to auscultation. Breath sounds equal bilaterally. GASTROINTESTINAL: Abdomen soft, non-tender, mildly distended with minimal ascites. Hepatic and splenic margins not palpable. No rebound no percussive tenderness MUSCULOSKELETAL: No obvious deformities. No clubbing. No cyanosis. No edema. NEUROLOGICAL: Awake and alert for nursing oriented to person and place, she will not provide me with any additional history. Certainly she is confused and pulls away from IV starts multiple times. She is calling for her person not in the room when she has IV started. She will follow commands in all 4 extremities however. PSYCHIATRIC: Unable to assess Data Data Last Documented VS Vital Signs Date Time Temp Pulse Resp B/P (MAP) Pulse Ox O2 Delivery O2 Flow Rate FiO2 05/27/17 13:52 58 16 100 Room Air 05/27/17 11:52 98.1 99/55 (70) Orders Orders Ammonia (05/27/17 13:16) Complete Blood Count With Diff (05/27/17 13:16) Comprehensive Metabolic Panel (05/27/17 13:16) Prothrombin Time / Inr (Pt) (05/27/17 13:16) Act Partial Throm Time (Ptt) (05/27/17 13:16) Thyroid Stimulating Hormone (05/27/17 13:16) Urinalysis - C+S If Indicated (05/27/17 13:16) Blood Glucose (05/27/17 13:16) Ecg Monitoring (05/27/17 13:16) Iv Access Insert/Monitor (05/27/17 13:16) Oximetry (05/27/17 13:16) Sodium Chloride 0.9% Flush (Ns Flush) (05/27/17 13:30) Drug Screen, Random Urine (05/27/17 13:16) Alcohol (Ethanol) (05/27/17 13:16) Ct Brain W/O Iv Contrast(Rout) (05/27/17 ) Sodium Chlorid 0.9% 500 Ml Inj (Ns 500 M (05/27/17 14:45) Admit Order (Ed Use Only) (05/27/17 ) Labs Laboratory Tests Test 05/27/17 13:45 05/27/17 14:41 Prothrombin Time 14.9 SEC Prothromb Time International Ratio 1.3 RATIO Activated Partial Thromboplast Time 29.1 SEC Urine Collection Type CATH Urine Color YELLOW Urine Turbidity CLEAR Urine pH 7.5 Urine Specific [place] 1.010 Urine Protein NEG mg/dL Urine Glucose (UA) NEG mg/dL Urine Ketones NEG mg/dL Urine Occult Blood NEG Urine Nitrite NEG Urine Bilirubin NEG Urine Leukocyte Esterase NEG Urine WBC 0-2 /hpf Urine Squamous Epithelial Cells 0-5 /hpf Urine Transitional Epithelial Cells 0-5 /hpf Microscopic Urinalysis Comment CULT NOT INDICATED Urine Collection Time 13:54 Urine Opiates Screen NEG Urine Barbiturates Screen NEG Urine Amphetamines Screen NEG Urine Benzodiazepines Screen NEG Urine Cocaine Screen NEG Urine Cannabinoids Screen NEG White Blood Count 5.1 TH/MM3 Red Blood Count 3.15 MIL/MM3 Hemoglobin 10.1 GM/DL Hematocrit 30.7 % Mean Corpuscular Volume 97.7 FL Mean Corpuscular Hemoglobin 32.2 PG Mean Corpuscular Hemoglobin Concent 32.9 % Red Cell Distribution Width 16.2 % Platelet Count 122 TH/MM3 Mean Platelet Volume 7.1 FL Neutrophils (%) (Auto) 53.6 % Lymphocytes (%) (Auto) 23.2 % Monocytes (%) (Auto) 14.2 % Eosinophils (%) (Auto) 8.4 % Basophils (%) (Auto) 0.6 % Neutrophils # (Auto) 2.8 TH/MM3 Lymphocytes # (Auto) 1.2 TH/MM3 Monocytes # (Auto) 0.7 TH/MM3 Eosinophils # (Auto) 0.4 TH/MM3 Basophils # (Auto) 0.0 TH/MM3 CBC Comment DIFF FINAL Differential Comment Blood Urea Nitrogen 12 MG/DL Creatinine 1.00 MG/DL Random Glucose 75 MG/DL Total Protein 7.4 GM/DL Albumin 2.2 GM/DL Calcium Level 8.0 MG/DL Alkaline Phosphatase 153 U/L Aspartate Amino Transf (AST/SGOT) 45 U/L Alanine Aminotransferase (ALT/SGPT) 30 U/L Total Bilirubin 2.1 MG/DL Sodium Level 135 MEQ/L Potassium Level 4.0 MEQ/L Chloride Level 106 MEQ/L Carbon Dioxide Level 18.7 MEQ/L Anion Gap 10 MEQ/L Estimat Glomerular Filtration Rate 58 ML/MIN Ammonia 81 MCMOL/L Thyroid Stimulating Hormone 3rd Gen 4.300 uIU/ML Ethyl Alcohol Level LESS THAN 3 MG/DL [facility] Medical Decision Making Medical Screen Exam Complete: Yes Emergency Medical Condition: Yes Differential Diagnosis Altered mental status, hepatic encephalopathy, dehydration, electro-light abnormality, Narrative Course Patient roomed emergency department, multiple presentations for the same in the past, initial workup is fairly unimpressive CT head negative, ammonia level is only in the 80s. Still the patient is remaining altered for me, there may be a sacral social her secondary gain here. Still [facility] would be for observation status the patient was discussed with Dr. Christie who knows patient well be happy to admit for observation. Diagnosis Primary Impression: Altered mental status Qualified Codes: R40.2412 - [place] coma scale score 13-15, at arrival to emergency department Admitting Information Admitting Physician Requests: Observation Condition: Stable Ravi Tellez MD May 27, 2017 15:51
[2017-05-27] MEDS ORDERED: SENNOSIDES 8.6 MG TAB PO PRN (17:00)
[2017-05-27] MEDS ORDERED: ONDANSETRON HCL 4 MG/2 ML VIAL IVP PRN (17:00)
[2017-05-27] MEDS ORDERED: NALOXONE HCL 0.4 MG/ML AMP IV PUSH PRN (17:00)
[2017-05-27] MEDS: SODIUM CHLOR 0.9% 1000 ML INJ 1,000 ML IV SCH (17:55)
[2017-05-27 17:59] VITALS: BP 91/47; PULSE 71; RESP 16; O2SAT 99
--- NOTE | 2017-05-27 18:31 | HHI.HP ---
[facility] David Vo MD Admission Diagnosis Altered mental status. Diagnoses: Chief Complaint: Altered mental status Travel History International Travel<30 Days: No Contact w/Intl Traveler <30 Da: No Traveled to Known Affected Are: No History of Present Illness Patient is a 52-year-old female with known history of end-stage liver disease currently in transplantation evaluation in [place]. Periodically she has INFUSION episodes. Today she was brought into the emergency room because of intermittent confusion which recurred. There was no fevers or chills. Patient began staring out and was agitated. Her who is her primary caregiver brought her into the hospital as he has had multiple times before. She was given IV fluids and seemed to improve. Apparently she stopped taking her lactulose and although her ammonia level is relatively normal she still has elements of hepatic encephalopathy which seemed to improve with hydration and lactulose. Patient is recommended for observation. She is already improved over the last several hours Review of Systems Constitutional: DENIES: Diaphoretic episodes, Fatigue, Fever, Weight gain, Weight loss, Chills, Dizziness, Change in appetite, Night Sweats Endocrine: DENIES: Abnorml menstrual pattern, Heat/cold intolerance, Polydipsia , Polyuria, Polyphagia Eyes: DENIES: Blurred vision, Diplopia, Eye inflammation, Eye pain, Vision loss , Photosensitivity, Double Vision Ears, nose, mouth, throat: DENIES: Tinnitus, Hearing loss, Vertigo, Nasal discharge, Oral lesions, Throat pain, Hoarseness, Ear Pain, Running Nose, Epistaxis, Sinus Pain, Toothache, Odynophagia Respiratory: DENIES: Apneas, Cough, Snoring, Wheezing, Hemoptysis, Sputum production, Shortness of breath Cardiovascular: DENIES: Chest pain, Palpitations, Syncope, Dyspnea on Exertion , PND, Lower Extremity Edema, Orthopnea, Claudication Gastrointestinal: DENIES: Abdominal pain, Black stools, Bloody stools, Constipation, Diarrhea, Nausea, Vomiting, Difficulty Swallowing, Anorexia Genitourinary: DENIES: Abnormal vaginal bleeding, Dysmenorrhea, Dyspareunia, Sexual dysfunction, Urinary frequency, Urinary incontinence, Urgency, Hematuria , Dysuria, Nocturia, Vaginal discharge Musculoskeletal: DENIES: Joint pain, Muscle aches, Stiffness, Joint Swelling, Back pain, Neck pain Integumentary: DENIES: Abnormal pigmentation, Pruritus, Rash, Nail changes, Breast masses, Breast skin changes, Nipple discharge Immunologic/allergic: DENIES: Eczema, Urticaria Neurologic: DENIES: Abnormal gait, Headache, Localized weakness, Paresthesias, Seizures, Speech Problems, Tremor, Poor Balance Psychiatric: COMPLAINS OF: Confusion, DENIES: Anxiety, Mood changes, Depression , Hallucinations, Agitation, Suicidal Ideation, Homicidal Ideation, Delusions Past Family Social History Past Medical History Liver failure, currently in evaluation for liver transplant in [facility] Past Surgical History Reviewed in the EMR, nothing new Reported Medications Reviewed in the EMR, nothing new Allergies: Coded Allergies: aspirin (Unverified Adverse Reaction, Severe, Bleeding, 05/27/17) codeine (Unverified Adverse Reaction, Severe, Vomiting, 05/27/17) morphine (Unverified Adverse Reaction, Severe, 05/27/17) Patient's states someone overdosed her on XR morphine nortriptyline (Unverified Adverse Reaction, Severe, Hallucinations, vomiting , 05/27/17) Active Ordered Medications Reviewed in the EMR, nothing new Family History Reviewed in the EMR, nothing new Social History Reviewed in the EMR, nothing new Physical Exam Vital Signs Vital Signs Date Time Temp Pulse Resp B/P (MAP) Pulse Ox O2 Delivery O2 Flow Rate FiO2 05/27/17 17:59 71 16 91/47 (62) 99 Room Air 05/27/17 13:52 58 16 100 Room Air 05/27/17 13:52 100 Room Air 05/27/17 11:52 98.1 59 16 99/55 (70) 100 Physical Exam Abdomen GENERAL: This is a well-nourished, well-developed patient, in no apparent distress. SKIN: No rashes, ecchymoses or lesions. Cool and dry. HEAD: Atraumatic. Normocephalic. No temporal or scalp tenderness. EYES: Pupils equal round and reactive. Extraocular motions intact. No scleral icterus. No injection or drainage. ENT: Nose without bleeding, purulent drainage or septal hematoma. Throat without erythema, tonsillar hypertrophy or exudate. Uvula midline. Airway patent. NECK: Trachea midline. No JVD or lymphadenopathy. Supple, nontender, no meningeal signs. CARDIOVASCULAR: Regular rate and rhythm without murmurs, gallops, or rubs. RESPIRATORY: Clear to auscultation. Breath sounds equal bilaterally. No wheezes , rales, or rhonchi. GASTROINTESTINAL: Abdomen soft, non-tender, mildly distended. No hepato- splenomegaly, or palpable masses. No guarding. MUSCULOSKELETAL: Extremities without clubbing, cyanosis, or edema. No joint tenderness, effusion, or edema noted. No calf tenderness. Negative Homans sign bilaterally. NEUROLOGICAL: Awake and alert. Cranial nerves II through XII intact. Motor and sensory grossly within normal limits. Five out of 5 muscle strength in all muscle groups. Normal speech. Laboratory Laboratory Tests Test 05/27/17 13:45 05/27/17 14:41 Prothrombin Time 14.9 Prothromb Time International Ratio 1.3 Activated Partial Thromboplast Time 29.1 Urine pH 7.5 Urine Protein NEG Urine Glucose (UA) NEG Urine Ketones NEG Urine Occult Blood NEG Urine Nitrite NEG Urine Bilirubin NEG Urine Leukocyte Esterase NEG Urine Opiates Screen NEG Urine Barbiturates Screen NEG Urine Amphetamines Screen NEG Urine Benzodiazepines Screen NEG Urine Cocaine Screen NEG Urine Cannabinoids Screen NEG White Blood Count 5.1 Red Blood Count 3.15 Hemoglobin 10.1 Hematocrit 30.7 Mean Corpuscular Volume 97.7 Mean Corpuscular Hemoglobin 32.2 Mean Corpuscular Hemoglobin Concent 32.9 Red Cell Distribution Width 16.2 Platelet Count 122 Mean Platelet Volume 7.1 Neutrophils (%) (Auto) 53.6 Lymphocytes (%) (Auto) 23.2 Monocytes (%) (Auto) 14.2 Eosinophils (%) (Auto) 8.4 Basophils (%) (Auto) 0.6 Neutrophils # (Auto) 2.8 Lymphocytes # (Auto) 1.2 Monocytes # (Auto) 0.7 Eosinophils # (Auto) 0.4 Basophils # (Auto) 0.0 CBC Comment DIFF FINAL Differential Comment Blood Urea Nitrogen 12 Creatinine 1.00 Random Glucose 75 Total Protein 7.4 Albumin 2.2 Calcium Level 8.0 Alkaline Phosphatase 153 Aspartate Amino Transf (AST/SGOT) 45 Alanine Aminotransferase (ALT/SGPT) 30 Total Bilirubin 2.1 Sodium Level 135 Potassium Level 4.0 Chloride Level 106 Carbon Dioxide Level 18.7 Anion Gap 10 Estimat Glomerular Filtration Rate 58 Ammonia 81 Thyroid Stimulating Hormone 3rd Gen 4.300 Ethyl Alcohol Level LESS THAN 3 Result Diagram: 05/27/17 1441 05/27/17 1441 Imaging Last Impressions Head CT 05/27/17 0000 Signed Impressions: Service Date/Time: Saturday, May 27, 2017 15:07 - CONCLUSION: No acute disease. Kaz Anderson MD FACR Caprini VTE Risk Assessment Caprini VTE Risk Assessment: Mod/High Risk (score >= 2) Caprini Risk Assessment Model Point Value = 1 Point Value = 2 Point Value = 3 Point Value = 5 Age 41-60 Minor surgery BMI > 25 kg/m2 Swollen legs Varicose veins or History of unexplained or recurrent spontaneous Oral contraceptives or hormone replacement Sepsis (< 1 month) Serious lung disease, including pneumonia (< 1 month) Abnormal pulmonary function Acute myocardial infarction Congestive heart failure (< 1 month) History of inflammatory bowel disease Medical patient at bed rest Age 61-74 Arthroscopic surgery Major open surgery (> 45 min) Laparoscopic surgery (> 45 min) Malignancy Confined to bed (> 72 hours) Immobilizing plaster cast Central venous access Age >= 75 History of VTE Family history of VTE Factor V Leiden Prothrombin [id number] Lupus anticoagulant Anticardiolipin antibodies Elevated serum homocysteine Heparin-induced thrombocytopenia Other congenital or acquired thrombophilia Stroke (< 1 month) Elective arthroplasty Hip, pelvis, or leg fracture Acute spinal cord injury (< 1 month) Prophylaxis Regimen Total Risk Factor Score Risk Level Prophylaxis Regimen 0-1 Low Early ambulation 2 Moderate Order ONE of the following: *Sequential Compression Device (SCD) *Heparin 5000 units SQ BID 3-4 Higher Order ONE of the following medications: *Heparin 5000 units SQ TID *Enoxaparin/Lovenox 40 mg SQ daily (WT < 150 kg, CrCl > 30 mL/min) *Enoxaparin/Lovenox 30 mg SQ daily (WT < 150 kg, CrCl > 10-29 mL/min) *Enoxaparin/Lovenox 30 mg SQ BID (WT < 150 kg, CrCl > 30 mL/min) AND/OR *Sequential Compression Device (SCD) 5 or more Highest Order ONE of the following medications: *Heparin 5000 units SQ TID (Preferred with Epidurals) *Enoxaparin/Lovenox 40 mg SQ daily (WT < 150 kg, CrCl > 30 mL/min) *Enoxaparin/Lovenox 30 mg SQ daily (WT < 150 kg, CrCl > 10-29 mL/min) *Enoxaparin/Lovenox 30 mg SQ BID (WT < 150 kg, CrCl > 30 mL/min) AND *Sequential Compression Device (SCD) Assessment and Plan Problem List: (1) Metabolic encephalopathy ICD Code: G93.41 - Metabolic encephalopathy Status: Acute Plan: Continue observation. Patient has known hepatic encephalopathy that waxes and wanes. Somewhat improved discussed with patient and spouse and ER Caryn Salazar MD May 27, 2017 18:31
[2017-05-27 20:00] VITALS: BP 120/81; PULSE 88; RESP 19; TEMP 97.7; O2SAT 96
[2017-05-27] MEDS: SODIUM CHLORIDE 0.9% FLUSH 10 ML FLUSH IV FLUSH SCH (20:50)
[2017-05-28] VITALS: BP 118/78; PULSE 82; RESP 18; TEMP 97.5; O2SAT 98
[2017-05-28] MEDS: SODIUM CHLOR 0.9% 1000 ML INJ 1,000 ML IV SCH ×2 (04:15→12:52)
[2017-05-28 07:38] LABS: METHOD OF COLLECTION CATH; URINE COLOR YELLOW (YELLW/STRAW)
[2017-05-28 07:39] LABS: COMMENT (UR) CULT NOT INDICATED; CULTURE IF INDICATED CULT NOT INDICATED; SQUAMOUS EPITHELIAL CELL URINE 0-5 /hpf (0-5); TRANSITIONAL EPI CELLS, URINE 0-5 /hpf; WBC, URINE 0-2 /hpf (0-5)
[2017-05-28 08:00] VITALS: BP 87/52; PULSE 66; RESP 16; TEMP 96.5; O2SAT 100
[2017-05-28 08:14] LABS: AUTOMATED NEUTROPHIL # 2.3 TH/MM3 (1.8-7.7); BASOPHIL % 0.7 % (0.0-2.0); EOSINOPHIL # 0.4 TH/MM3 (0-0.4); EOSINOPHIL % 10.2 % (0.0-4.0); HEMO FLAGS DIFF FINAL; LYMPH % 21.4 % (9.0-44.0); LYMPHOCYTE # 0.9 TH/MM3 (1.0-4.8); MEAN CELL VOLUME 98.3 FL (80.0-100.0); MEAN CORPUSCULAR HEMOGLOBIN 31.4 PG (27.0-34.0); MONO % 12.7 % (0.0-8.0); PLATELET COUNT 101 TH/MM3 (150-450); RED BLOOD COUNT 2.95 MIL/MM3 (4.00-5.30); RED CELL DISTRIBUTION WIDTH 16.3 % (11.6-17.2); WHITE BLOOD COUNT 4.1 TH/MM3 (4.0-11.0)
[2017-05-28 08:24] LABS: POTASSIUM 3.9 MEQ/L (3.5-5.1)
[2017-05-28 08:36] LABS: BICARBONATE 19.1 MEQ/L (21.0-32.0)
[2017-05-28] MEDS: SODIUM CHLORIDE 0.9% FLUSH 10 ML FLUSH IV FLUSH SCH (09:00)
[2017-05-28 09:37] LABS: CALCIUM-PROTEIN CORRECTED 7.7 MG/DL (8.5-10.1)
[2017-05-28] MEDS ORDERED: MAGN500T2 PO (11:03)
[2017-05-28 12:00] VITALS: BP 105/65; PULSE 69; RESP 16; TEMP 98.3; O2SAT 100
--- NOTE | 2017-05-28 12:14 | HHI.DCPOC ---
Discharge Care Plan Diagnosis: (1) Metabolic encephalopathy Goals to Promote Your Health * To prevent worsening of your condition and complications * To maintain your health at the optimal level Directions to Meet Your Goals Take your medications as prescribed Follow your dietary instruction Follow activity as directed Keep your appointments as scheduled Take your immunizations and boosters as scheduled If your symptoms worsen call your PCP, if no PCP go to Urgent Care Center or Emergency Room Smoking is Dangerous to Your Health. Avoid second hand smoke Call the 24-hour hour crisis hotline for domestic abuse at Caryn Christie MD May 28, 2017 12:14
[2017-05-28] MEDS ORDERED: LACTULOSE SYRUP 20 GM/30 ML CUP PO PRN (12:15)
[2017-05-28] MEDS ORDERED: ONDANSETRON ODT 4 MG TAB SL PRN (12:15)
--- NOTE | 2017-05-28 12:20 | HHI.DS ---
Discharge Summary Admission Date May 27, 2017 at 16:05 Discharge Date: May 28, 2017 Admitting Diagnosis Altered mental status. (1) Metabolic encephalopathy ICD Code: G93.41 - Metabolic encephalopathy Status: Acute Procedures none Brief History - From Admission Patient is a 52-year-old female with known history of end-stage liver disease currently in transplantation evaluation in [place]. Periodically she has INFUSION episodes. Today she was brought into the emergency room because of intermittent confusion which recurred. There was no fevers or chills. Patient began staring out and was agitated. Her who is her primary caregiver brought her into the hospital as he has had multiple times before. She was given IV fluids and seemed to improve. Apparently she stopped taking her lactulose and although her ammonia level is relatively normal she still has elements of hepatic encephalopathy which seemed to improve with hydration and lactulose. Patient is recommended for observation. She is already improved over the last several hours CBC/BMP: 05/28/17 0721 05/28/17 0721 Significant Findings Laboratory Tests Test 05/27/17 13:45 05/27/17 14:41 05/28/17 07:21 Prothrombin Time 14.9 SEC (9.8-11.6) Red Blood Count 3.15 MIL/MM3 (4.00-5.30) 2.95 MIL/MM3 (4.00-5.30) Hemoglobin 10.1 GM/DL (11.6-15.3) 9.3 GM/DL (11.6-15.3) Hematocrit 30.7 % (35.0-46.0) 29.0 % (35.0-46.0) Platelet Count 122 TH/MM3 (150-450) 101 TH/MM3 (150-450) Monocytes (%) (Auto) 14.2 % (0.0-8.0) 12.7 % (0.0-8.0) Eosinophils (%) (Auto) 8.4 % (0.0-4.0) 10.2 % (0.0-4.0) Albumin 2.2 GM/DL (3.4-5.0) Calcium Level 8.0 MG/DL (8.5-10.1) 7.3 MG/DL (8.5-10.1) Alkaline Phosphatase 153 U/L (45-117) Aspartate Amino Transf (AST/SGOT) 45 U/L (15-37) Total Bilirubin 2.1 MG/DL (0.2-1.0) Sodium Level 135 MEQ/L (136-145) Carbon Dioxide Level 18.7 MEQ/L (21.0-32.0) 19.1 MEQ/L (21.0-32.0) Estimat Glomerular Filtration Rate 58 ML/MIN (>89) 82 ML/MIN (>89) Ammonia 81 MCMOL/L (11-32) Thyroid Stimulating Hormone 3rd Gen 4.300 uIU/ML (0.358-3.740) Lymphocytes # (Auto) 0.9 TH/MM3 (1.0-4.8) Chloride Level 111 MEQ/L (98-107) Protein Corrected Calcium 7.7 MG/DL (8.5-10.1) Imaging Last Impressions Head CT 05/27/17 0000 Signed Impressions: Service Date/Time: Saturday, May 27, 2017 15:07 - CONCLUSION: No acute disease. Kaz Anderson MD FACR PE at Discharge GENERAL: This is a well-nourished, well-developed patient, in no apparent distress. CARDIOVASCULAR: Regular rate and rhythm without murmurs, gallops, or rubs. RESPIRATORY: Clear to auscultation. Breath sounds equal bilaterally. No wheezes , rales, or rhonchi. GASTROINTESTINAL: Abdomen soft, non-tender, mildly distended. Normal active bowel sounds MUSCULOSKELETAL: Extremities without clubbing, cyanosis, or edema. NEURO: Alert & Oriented x4 to person, place, time, situation. Moves all ext x4 Pt update on day of discharge patient more alert and at baseline d/c plans discussed with patient and spouse Hospital Course Patient is a 52-year-old female who came in with metabolic encephalopathy. 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 She was given IV hydration and monitored. She did improve. Education was provided to the family the patient was discharged home Pt Condition on Discharge: Good Discharge Disposition: Discharge Home Discharge Time: <= 30 minutes Discharge Instructions DIET: Follow Instructions for: As Tolerated, No Restrictions Activities you can perform: Regular-No Restrictions Follow up Referrals: Gastroenterology - 06/01/17 with [facility] Continued Medications: Furosemide (Lasix) 20 Mg Tab 20 MG PO DAILY for Immunosuppression, #30 TAB 0 Refills Lactulose Liq (Lactulose Liq) 10 Gm/15 Ml Soln 30 ML PO TID PRN for titrate to 3-4 bm for 30 Days, ML 0 Refills Levothyroxine (Levothyroxine) 50 Mcg Tab 50 MCG PO DAILY for Thyroid, #30 TAB 0 Refills Magnesium Oxide (Magnesium Oxide) 500 Mg Tab 500 MG PO DAILY for 30 Days, #30 TAB 0 Refills Ondansetron Odt (Zofran Odt) 4 Mg Tab 4 MG SL Q8HR PRN for Nausea/Vomiting, #30 TAB 0 Refills Pantoprazole (Pantoprazole) 40 Mg Tab 40 MG PO DAILY for Reflux, #30 TAB 0 Refills Potassium Chloride ER (Potassium Chloride ER) 10 Meq Tab 10 MEQ PO DAILY for Electrolyte Replacement, #30 TAB 0 Refills Propranolol (Propranolol) 10 Mg Tab 10 MG PO Q12HR for prevent esophageal bleed, #60 TAB 0 Refills Rifaximin (Xifaxan) 550 Mg Tab 550 MG PO BID for Liver, #60 TAB Spironolactone (Spironolactone) 50 Mg Tab 50 MG PO BIDPC for fluid retention, #60 TAB 0 Refills Caryn Christie MD May 28, 2017 12:20
[2017-05-28] MEDS ORDERED: SPIRONOLACTONE 50 MG TAB PO SCH (13:00)
[2017-05-28] MEDS ORDERED: LEVOTHYROXINE SODIUM 50 MCG TAB PO SCH (13:00)
[2017-05-28] MEDS ORDERED: PROPRANOLOL HCL 10 MG TAB PO SCH (13:00)
[2017-05-28] MEDS ORDERED: PANTOPRAZOLE SOD 40 MG DELAYED RELEASE TAB PO SCH (13:00)
[2017-05-28] MEDS ORDERED: FUROSEMIDE 20 MG TAB PO SCH (13:00)
[2017-05-28] MEDS ORDERED: MAGNESIUM OXIDE 400 MG TAB PO SCH (13:00)
[2017-05-28] MEDS ORDERED: RIFAXIMIN 550 MG TAB PO SCH (13:00)
[2017-05-28] MEDS ORDERED: POTASSIUM CHLORIDE 10 MEQ CONTROLLED RELEASE TAB PO SCH (13:00)
== END 2017-05-28 14:14 | disposition home or self-care (01) ==
LOC: PHED 11:27 → PHEDA 16:05 → PH3B 18:50
PROVIDERS: ADMIT Hospitalist; ATTEND Hospitalist
DX: G93.41 Metabolic encephalopathy (principal); R45.1 Restlessness and agitation; B19.20 Unspecified viral hepatitis C without hepatic coma; K70.30 Alcoholic cirrhosis of liver without ascites; E03.9 Hypothyroidism, unspecified; J45.909 Unspecified asthma, uncomplicated; F41.9 Anxiety disorder, unspecified; F32.9 Major depressive disorder, single episode, unspecified; M19.90 Unspecified osteoarthritis, unspecified site; R40.2410 Glasgow coma scale score 13-15, unspecified time; Z79.899 Other long term (current) drug therapy; Z76.82 Awaiting organ transplant status
CPT/HCPCS: 70450; 80048; 80053; 80307; 81001; 82140; 84155; 84443; 85025; 85610; 85730; 96360; 99285; G0378; J7030; J7040

== ENCOUNTER 2017-07-02 14:47 | Inpatient (IN) | payer MEDICAID ==
[~2017-07-02] VITALS: Ht 165.1 cm; Wt 53.3 kg
[~2017-07-02 14:47] MED LIST changes: -MAGN400T2 PO; +MAGN500T2 PO; -THIA100 PO
[2017-07-02 15:07] VITALS: BP 100/60; PULSE 65; RESP 16; TEMP 97.5; O2SAT 100
[2017-07-02 15:54] LABS: AUTOMATED NEUTROPHIL # 3.4 TH/MM3 (1.8-7.7); BASOPHIL # 0.1 TH/MM3 (0-0.2); BASOPHIL % 1.2 % (0.0-2.0); CHLORIDE 102 MEQ/L (98-107); EOSINOPHIL # 0.5 TH/MM3 (0-0.4); EOSINOPHIL % 7.6 % (0.0-4.0); HEMATOCRIT 28.7 % (35.0-46.0); HEMOGLOBIN 9.5 GM/DL (11.6-15.3); LYMPH % 18.7 % (9.0-44.0); LYMPHOCYTE # 1.1 TH/MM3 (1.0-4.8); MEAN CELL VOLUME 92.5 FL (80.0-100.0); MEAN CORPUSCULAR HEMOGLOBIN 30.5 PG (27.0-34.0); MEAN CORPUSCULAR HGB CONC 32.9 % (32.0-36.0); MEAN PLATELET VOLUME 7.6 FL (7.0-11.0); MONO % 13.9 % (0.0-8.0); MONOCYTE # 0.8 TH/MM3 (0-0.9); NEUT % 58.6 % (16.0-70.0); PLATELET COUNT 183 TH/MM3 (150-450); RED BLOOD COUNT 3.11 MIL/MM3 (4.00-5.30); SODIUM (NA) 131 MEQ/L (136-145); WHITE BLOOD COUNT 5.9 TH/MM3 (4.0-11.0)
[2017-07-02 15:57] LABS: CALCIUM 7.7 MG/DL (8.5-10.1)
[2017-07-02 15:58] LABS: ALBUMIN 1.9 GM/DL (3.4-5.0); BICARBONATE 19.2 MEQ/L (21.0-32.0); BLOOD UREA NITROGEN 15 MG/DL (7-18); GLUCOSE,RANDOM 93 MG/DL (74-106); LIPASE 343 U/L (73-393)
[2017-07-02 16:01] LABS: ALT (GPT) 29 U/L (10-53); AST (GOT) 63 U/L (15-37); CREATININE 0.78 MG/DL (0.50-1.00); GLOMERULAR FILTRATION RATE 78 ML/MIN (>89)
[2017-07-02 16:02] LABS: TOTAL BILIRUBIN ADULT 1.7 MG/DL (0.2-1.0); TOTAL PROTEIN 7.1 GM/DL (6.4-8.2)
[2017-07-02 16:04] LABS: ALKALINE PHOSPHATASE 168 U/L (45-117)
[2017-07-02] MEDS ORDERED: LACTULOSE SYRUP 20 GM/30 ML CUP PO ONE (16:45)
--- NOTE | 2017-07-02 16:55 | PD ---
HPI Chief Complaint: Altered Mental Status Time Seen by Provider: 15:45 Travel History International Travel<30 days: No Contact w/Intl Traveler<30days: No Traveled to known affect area: No History of Present Illness HPI This is a 52-year-old female who has a history of end-stage liver disease who is being followed at [facility] and evaluated for possible liver transplant who presents to the emergency department with increasing confusion and somnolence that started this morning. Her had difficulty waking her up this morning and when she wakes up she is very confused and agitated, constant, severe, similar to when her ammonia is been high in the past. Her's says that she specifically take lactulose 3 times a day but her doctor says that if she starts getting dehydrated she should decrease to 2 times per day. He thinks that perhaps she doesn't go back to 3 times per day soon enough and this is when she develops encephalopathy. PFSH Past Medical History Hx Anticoagulant Therapy: No Arthritis: Yes Asthma: Yes Autoimmune Disease: No Anxiety: Yes Depression: Yes Heart Rhythm Problems: No Cancer: No Cardiovascular Problems: Yes High Cholesterol: No Chemotherapy: No Chest Pain: No Congestive Heart Failure: No Cirrhosis: Yes (End stage ) COPD: No Cerebrovascular Accident: No Diabetes: No Diminished Hearing: No Endocrine: Yes Gastrointestinal Disorders: Yes (Upper GIB, varices, bleeding ulcers ) GERD: No Genitourinary: No Headaches: No Hepatitis: Yes (Alcoholic ) Hiatal Hernia: Yes Heparin Induced Thrombocytopen: No Hypertension: No Immune Disorder: No Implanted Vascular Access Dvce: No Kidney Stones: No Medical other: Yes (ESOPHAGEAL VARICES; LIVER CIRRHOSIS; THROMBOCYTOPENIA ;) Musculoskeletal: Yes (neck is "puffy" pt states "its puffy cause i have a endocrine problem") Neurologic: No Psychiatric: Yes Reproductive: No Respiratory: No Immunizations Current: Yes Migraines: No Radiation Therapy: No Renal Failure: No Seizures: No Sickle Cell Disease: No Sleep Apnea: No Thyroid Disease: Yes (Hypothyroidism) Ulcer: No Tetanus Vaccination: < 5 Years Influenza Vaccination: Yes ?: Not Menopausal: Yes Past Surgical History Abdominal Surgery: Yes (Umb. hernia repair ) AICD: No Body Medical Devices: NONE Cardiac Surgery: No Cholecystectomy: Yes (2006) Ear Surgery: No Endocrine Surgery: No Eye Surgery: No Genitourinary Surgery: No Gynecologic Surgery: No Hysterectomy: No Insulin Pump: No Joint Replacement: Yes (Lt. hip) Neurologic Surgery: No Oral Surgery: No Pacemaker: No Thoracic Surgery: No Other Surgery: Yes (Cholecystectomy) Social History Alcohol Use: No (H/O alcoholism ) Tobacco Use: No Substance Use: No Allergies-Medications (Allergen,Severity, Reaction): Coded Allergies: aspirin (Unverified Adverse Reaction, Severe, Bleeding, 07/02/17) codeine (Unverified Adverse Reaction, Severe, Vomiting, 07/02/17) morphine (Unverified Adverse Reaction, Severe, 07/02/17) Patient's states someone overdosed her on XR morphine nortriptyline (Unverified Adverse Reaction, Severe, Hallucinations, vomiting , 07/02/17) Reported Meds & Prescriptions Reported Meds & Active Scripts Active Lasix (Furosemide) 20 Mg Tab 20 Mg PO DAILY Propranolol (Propranolol HCl) 10 Mg Tab 10 Mg PO Q12HR Lactulose Liq (Lactulose) 10 Gm/15 Ml Soln 30 Ml PO TID PRN 30 Days Xifaxan (Rifaximin) 550 Mg Tab 550 Mg PO BID Zofran Odt (Ondansetron Odt) 4 Mg Tab 4 Mg SL Q8HR PRN Spironolactone 50 Mg Tab 50 Mg PO BIDPC Potassium Chloride ER (Potassium Chloride) 10 Meq Tab 10 Meq PO DAILY Levothyroxine (Levothyroxine Sodium) 50 Mcg Tab 50 Mcg PO DAILY Reported Magnesium Oxide 500 Mg Tab 500 Mg PO DAILY 30 Days Pantoprazole (Pantoprazole Sodium) 40 Mg Tab 40 Mg PO DAILY Review of Systems ROS Limitations: Altered Mental Status Physical Exam Narrative GENERAL: Chronically ill-appearing. SKIN: Focused skin assessment warm and dry. HEAD: Atraumatic. Normocephalic. EYES: Pupils equal and round. No injection or drainage. ENT: Moist mucous membranes NECK: Trachea midline. CARDIOVASCULAR: Regular rate and rhythm. No murmur appreciated. RESPIRATORY: Clear to auscultation. Breath sounds equal bilaterally. GASTROINTESTINAL: Abdomen soft, non-tender, nondistended. MUSCULOSKELETAL: No obvious deformities. NEUROLOGICAL: Somnolent but arouses to stimulation, intermittently saying words and nonsensical sentences, intermittently agitated, moving all extremities Data Data Last Documented VS Vital Signs Date Time Temp Pulse Resp B/P (MAP) Pulse Ox O2 Delivery O2 Flow Rate FiO2 1/6/18 15:24 68 100 Room Air 07/02/17 15:07 97.5 16 100/60 (73) Orders Orders Complete Blood Count With Diff (07/02/17 15:36) Comprehensive Metabolic Panel (07/02/17 15:36) Lipase (07/02/17 15:36) Ammonia (07/02/17 15:36) Lactulose Liq (Lactulose Liq) (07/02/17 16:45) Admit To Inpatient (07/02/17 ) Vital Signs (Adult) COCO.Q4H (07/02/17 16:43) Activity Bed Rest (07/02/17 16:43) Profile Grinder Technician / Telemetry COCO.Q8H (07/02/17 16:43) Inpatient Certification (07/02/17 ) ^ Fall Precautions (07/02/17 16:43) Admit Order (Ed Use Only) (07/02/17 16:42) Labs Laboratory Tests Test 07/02/17 15:40 White Blood Count 5.9 TH/MM3 Red Blood Count 3.11 MIL/MM3 Hemoglobin 9.5 GM/DL Hematocrit 28.7 % Mean Corpuscular Volume 92.5 FL Mean Corpuscular Hemoglobin 30.5 PG Mean Corpuscular Hemoglobin Concent 32.9 % Red Cell Distribution Width 17.0 % Platelet Count 183 TH/MM3 Mean Platelet Volume 7.6 FL Neutrophils (%) (Auto) 58.6 % Lymphocytes (%) (Auto) 18.7 % Monocytes (%) (Auto) 13.9 % Eosinophils (%) (Auto) 7.6 % Basophils (%) (Auto) 1.2 % Neutrophils # (Auto) 3.4 TH/MM3 Lymphocytes # (Auto) 1.1 TH/MM3 Monocytes # (Auto) 0.8 TH/MM3 Eosinophils # (Auto) 0.5 TH/MM3 Basophils # (Auto) 0.1 TH/MM3 CBC Comment DIFF FINAL Differential Comment Blood Urea Nitrogen 15 MG/DL Creatinine 0.78 MG/DL Random Glucose 93 MG/DL Total Protein 7.1 GM/DL Albumin 1.9 GM/DL Calcium Level 7.7 MG/DL Alkaline Phosphatase 168 U/L Aspartate Amino Transf (AST/SGOT) 63 U/L Alanine Aminotransferase (ALT/SGPT) 29 U/L Total Bilirubin 1.7 MG/DL Sodium Level 131 MEQ/L Potassium Level 5.2 MEQ/L Chloride Level 102 MEQ/L Carbon Dioxide Level 19.2 MEQ/L Anion Gap 10 MEQ/L Estimat Glomerular Filtration Rate 78 ML/MIN Ammonia 115 MCMOL/L Lipase 343 U/L MDM Medical Decision Making Medical Screen Exam Complete: Yes Emergency Medical Condition: Yes Interpretation(s) Afebrile, no tachycardia, normotensive Anemia similar to prior Mild hyperkalemia Total bilirubin is 1.7 Ammonia is 1:15 Differential Diagnosis Hepatic encephalopathy, hemorrhagic stroke, ischemic stroke, drug overdose Narrative Course This is a 52-year-old female with a history of cirrhosis who presents to the emergency department with signs and symptoms classic for hepatic encephalopathy. Her ammonia is 115. It sounds like she may recently decreased her lactulose dose. Patient will be admitted for lactulose treatment and close monitoring. Diagnosis Primary Impression: Hepatic encephalopathy Admitting Information Admitting Physician Requests: Admit Jacy Dhaliwal MD Jul 02, 2017 16:55
[2017-07-02 17:32] VITALS: BP 100/57; PULSE 64; RESP 16; O2SAT 99
--- NOTE | 2017-07-02 17:42 | HHI.HP ---
[facility] Service [facility] Primary Care Physician David Vo MD Admission Diagnosis hepatic encephalopathy Diagnoses: Chief Complaint: too sleepy Travel History International Travel<30 Days: No Contact w/Intl Traveler <30 Da: No Traveled to Known Affected Are: No History of Present Illness 52-year-old female being admitted for hepatic encephalopathy. Has been not at bedside, patient is an adequate historian given her altered state. History therefore obtained from emergency room records. Per the ER doctor, patient's stated that patient was too drowsy this morning at home and he therefore brought her in. Allegedly they were instructed by the primary care doctor to decrease the lactulose out of concern for dehydration. Patient has had multiple admissions for hepatic encephalopathy with high ammonia levels. Discussed with ER doctor, they state that she does converse occasionally and is protecting her airway. Review of Systems unable to obtain ROS due to pt's mental status Past Family Social History Past Medical History Cirrhosis History of alcohol abuse Recurrent ascites Duodenal AVMs History of esophageal varices Hepatic encephalopathy Portal hypertension Chronic hyponatremia Chronic pancytopenia Past Surgical History EGD for variceal bleeds with banding Colonoscopy Cholecystectomy Left hip replacement Umbilical hernia repair Reported Medications Reported Meds & Active Scripts Active Lasix (Furosemide) 20 Mg Tab 20 Mg PO DAILY Propranolol (Propranolol HCl) 10 Mg Tab 10 Mg PO Q12HR Lactulose Liq (Lactulose) 10 Gm/15 Ml Soln 30 Ml PO TID PRN 30 Days Xifaxan (Rifaximin) 550 Mg Tab 550 Mg PO BID Zofran Odt (Ondansetron Odt) 4 Mg Tab 4 Mg SL Q8HR PRN Spironolactone 50 Mg Tab 50 Mg PO BIDPC Potassium Chloride ER (Potassium Chloride) 10 Meq Tab 10 Meq PO DAILY Levothyroxine (Levothyroxine Sodium) 50 Mcg Tab 50 Mcg PO DAILY Reported Magnesium Oxide 500 Mg Tab 500 Mg PO DAILY 30 Days Pantoprazole (Pantoprazole Sodium) 40 Mg Tab 40 Mg PO DAILY Allergies: Coded Allergies: aspirin (Unverified Adverse Reaction, Severe, Bleeding, 07/02/17) codeine (Unverified Adverse Reaction, Severe, Vomiting, 07/02/17) morphine (Unverified Adverse Reaction, Severe, 07/02/17) Patient's states someone overdosed her on XR morphine nortriptyline (Unverified Adverse Reaction, Severe, Hallucinations, vomiting , 07/02/17) Family History Patient is adopted, does not know specifics about her family history but she indicates that she believes her father and grandfather had alcohol abuse Social History Patient denies any tobacco or illicit drugs. She quit using alcohol 5 years ago , prior to that she used to drink a bottle of vodka daily Physical Exam Vital Signs Vital Signs Date Time Temp Pulse Resp B/P (MAP) Pulse Ox O2 Delivery O2 Flow Rate FiO2 07/02/17 17:32 64 16 100/57 (71) 99 Room Air 07/02/17 15:24 68 100 Room Air 07/02/17 15:07 97.5 65 16 100/60 (73) 100 Physical Exam VS: afebrile GENERAL: Middle-aged female, lying in bed, responding only as "uh huh" to all my questions, will open eyes to her name but won't elaborate SKIN: Warm and dry. EYES: Pupils equal and round. scleral icterus present ENT: No nasal bleeding or discharge. Mucous membranes pink and moist. CARDIOVASCULAR: Regular rate and rhythm. no murmurs RESPIRATORY: No accessory muscle use. Clear to auscultation. Breath sounds equal bilaterally. GASTROINTESTINAL: Abdomen soft, non-tender, nondistended. Extremities: No clubbing, cyanosis, or edema. No obvious deformities. MUSCULOSKELETAL: grossly intact ROM with 5/5 strength in upper and lower extremities proximally; thin muscle bulk and tone for age and habitus NEUROLOGICAL: NO facial droop nor slurred speech PSYCHIATRIC: altered affect and insight Laboratory Laboratory Tests Test 07/02/17 15:40 White Blood Count 5.9 Red Blood Count 3.11 Hemoglobin 9.5 Hematocrit 28.7 Mean Corpuscular Volume 92.5 Mean Corpuscular Hemoglobin 30.5 Mean Corpuscular Hemoglobin Concent 32.9 Red Cell Distribution Width 17.0 Platelet Count 183 Mean Platelet Volume 7.6 Neutrophils (%) (Auto) 58.6 Lymphocytes (%) (Auto) 18.7 Monocytes (%) (Auto) 13.9 Eosinophils (%) (Auto) 7.6 Basophils (%) (Auto) 1.2 Neutrophils # (Auto) 3.4 Lymphocytes # (Auto) 1.1 Monocytes # (Auto) 0.8 Eosinophils # (Auto) 0.5 Basophils # (Auto) 0.1 CBC Comment DIFF FINAL Differential Comment Blood Urea Nitrogen 15 Creatinine 0.78 Random Glucose 93 Total Protein 7.1 Albumin 1.9 Calcium Level 7.7 Alkaline Phosphatase 168 Aspartate Amino Transf (AST/SGOT) 63 Alanine Aminotransferase (ALT/SGPT) 29 Total Bilirubin 1.7 Sodium Level 131 Potassium Level 5.2 Chloride Level 102 Carbon Dioxide Level 19.2 Anion Gap 10 Estimat Glomerular Filtration Rate 78 Ammonia 115 Lipase 343 Result Diagram: 07/02/17 1540 07/02/17 1540 Caprini VTE Risk Assessment Caprini VTE Risk Assessment: Mod/High Risk (score >= 2) Caprini Risk Assessment Model Point Value = 1 Point Value = 2 Point Value = 3 Point Value = 5 Age 41-60 Minor surgery BMI > 25 kg/m2 Swollen legs Varicose veins or History of unexplained or recurrent spontaneous Oral contraceptives or hormone replacement Sepsis (< 1 month) Serious lung disease, including pneumonia (< 1 month) Abnormal pulmonary function Acute myocardial infarction Congestive heart failure (< 1 month) History of inflammatory bowel disease Medical patient at bed rest Age 61-74 Arthroscopic surgery Major open surgery (> 45 min) Laparoscopic surgery (> 45 min) Malignancy Confined to bed (> 72 hours) Immobilizing plaster cast Central venous access Age >= 75 History of VTE Family history of VTE Factor V Leiden Prothrombin [id number] Lupus anticoagulant Anticardiolipin antibodies Elevated serum homocysteine Heparin-induced thrombocytopenia Other congenital or acquired thrombophilia Stroke (< 1 month) Elective arthroplasty Hip, pelvis, or leg fracture Acute spinal cord injury (< 1 month) Prophylaxis Regimen Total Risk Factor Score Risk Level Prophylaxis Regimen 0-1 Low Early ambulation 2 Moderate Order ONE of the following: *Sequential Compression Device (SCD) *Heparin 5000 units SQ BID 3-4 Higher Order ONE of the following medications: *Heparin 5000 units SQ TID *Enoxaparin/Lovenox 40 mg SQ daily (WT < 150 kg, CrCl > 30 mL/min) *Enoxaparin/Lovenox 30 mg SQ daily (WT < 150 kg, CrCl > 10-29 mL/min) *Enoxaparin/Lovenox 30 mg SQ BID (WT < 150 kg, CrCl > 30 mL/min) AND/OR *Sequential Compression Device (SCD) 5 or more Highest Order ONE of the following medications: *Heparin 5000 units SQ TID (Preferred with Epidurals) *Enoxaparin/Lovenox 40 mg SQ daily (WT < 150 kg, CrCl > 30 mL/min) *Enoxaparin/Lovenox 30 mg SQ daily (WT < 150 kg, CrCl > 10-29 mL/min) *Enoxaparin/Lovenox 30 mg SQ BID (WT < 150 kg, CrCl > 30 mL/min) AND *Sequential Compression Device (SCD) Assessment and Plan Assessment and Plan 52-year-old female with Severe hepatic encephalopathy Chronic alcoholic cirrhosis. Head CT noted and review by me without any intracranial abnormalities Start lactulose, rifaximin, diuretics, propranolol. Swallow eval to be performed prior to feeding Will give rectal lactulose. Hyponatremia. 131. Chronic. Secondary to liver disease. Continue to monitor. Hyperkalemia mildly elevated, monitor Chronic anemia. Appears at recent baseline. Continue to monitor. Hypothyroidism. Chronic. Resume home medication. GERD. History of gastric varices with banding in the past Continue home PPI. DVT prophylaxis. SCDs. Physician Certification 2 Midnight Certification Type: Admission for Inpatient Services Order for Inpatient Services The services are ordered in accordance with Medicare regulations or non- Medicare payer requirements, as applicable. In the case of services not specified as inpatient-only, they are appropriately provided as inpatient services in accordance with the 2-midnight benchmark. Estimated LOS (days): 2 days is the estimated time the patient will need to remain in the hospital, assuming treatment plan goals are met and no additional complications. Post-Hospital Plan: Not yet determined Max Vines MD Jul 02, 2017 17:42 Nick Vargas Jul 02, 2017 17:52
[2017-07-02] MEDS ORDERED: LACTULOSE SYRUP 20 GM/30 ML CUP PO PRN (17:45)
[2017-07-02] MEDS: SPIRONOLACTONE 50 MG TAB PO SCH (18:00)
[2017-07-02 18:15] VITALS: BP 96/54; PULSE 72; RESP 18; TEMP 97.5; O2SAT 99
[2017-07-02 20:00] VITALS: BP 87/51; PULSE 72; RESP 20; TEMP 97.7; O2SAT 98
[2017-07-02] MEDS ORDERED: LACTULOSE LIQ 300 ML in WATER STERILE FOR IRR BTL 700 ML RECTAL ONE (20:00)
[2017-07-02 20:08] VITALS: PULSE 52
[2017-07-02] MEDS: PROPRANOLOL HCL 10 MG TAB PO SCH ×2 (21:00→21:28)
[2017-07-02] MEDS: RIFAXIMIN 550 MG TAB PO SCH (21:28)
[2017-07-02 22:20] VITALS: BP 96/57; PULSE 67; RESP 16; TEMP 97.6; O2SAT 100
[2017-07-03] VITALS: BP 106/58; PULSE 72; RESP 20; TEMP 97.9; O2SAT 99
[2017-07-03 04:00] VITALS: BP 96/51; PULSE 79; RESP 20; TEMP 97.8; O2SAT 99
[2017-07-03] MEDS ORDERED: LEVOTHYROXINE SODIUM 50 MCG TAB PO SCH (06:00)
[2017-07-03 07:13] LABS: ALKALINE PHOSPHATASE 123 U/L (45-117); ALT (GPT) 31 U/L (10-53); AST (GOT) 51 U/L (15-37); BICARBONATE 19.6 MEQ/L (21.0-32.0); BLOOD UREA NITROGEN 16 MG/DL (7-18); CALCIUM 7.9 MG/DL (8.5-10.1); CHLORIDE 106 MEQ/L (98-107); CREATININE 0.85 MG/DL (0.50-1.00); GLOMERULAR FILTRATION RATE 70 ML/MIN (>89); GLUCOSE,RANDOM 89 MG/DL (74-106); SODIUM (NA) 135 MEQ/L (136-145); TOTAL BILIRUBIN ADULT 2.3 MG/DL (0.2-1.0); TOTAL PROTEIN 6.8 GM/DL (6.4-8.2)
[2017-07-03 08:00] VITALS: BP 101/55; PULSE 75; RESP 16; TEMP 97.8; O2SAT 99
[2017-07-03] MEDS: RIFAXIMIN 550 MG TAB PO SCH (08:37)
[2017-07-03] MEDS: SPIRONOLACTONE 50 MG TAB PO SCH (08:37)
[2017-07-03] MEDS: PROPRANOLOL HCL 10 MG TAB PO SCH (08:37)
[2017-07-03] MEDS ORDERED: PANTOPRAZOLE SOD 40 MG DELAYED RELEASE TAB PO SCH (09:00)
[2017-07-03] MEDS ORDERED: POTASSIUM CHLORIDE 10 MEQ CONTROLLED RELEASE TAB PO SCH (09:00)
[2017-07-03] MEDS ORDERED: MAGNESIUM OXIDE 400 MG TAB PO SCH (11:00)
[2017-07-03 12:00] VITALS: BP 115/68; PULSE 73; RESP 18; TEMP 98.6; O2SAT 99
[2017-07-03] MEDS ORDERED: FURO20TA PO (12:04)
[2017-07-03] MEDS ORDERED: LACT10SO PO (12:52)
--- NOTE | 2017-07-03 12:53 | HHI.DCPOC ---
Discharge Care Plan Diagnosis: (1) Hepatic encephalopathy (2) Hyperammonemia Goals to Promote Your Health * To prevent worsening of your condition and complications * To maintain your health at the optimal level Directions to Meet Your Goals Take your medications as prescribed Follow your dietary instruction Follow activity as directed Keep your appointments as scheduled Take your immunizations and boosters as scheduled If your symptoms worsen call your PCP, if no PCP go to Urgent Care Center or Emergency Room Smoking is Dangerous to Your Health. Avoid second hand smoke Call the 24-hour hour crisis hotline for domestic abuse at Max Vines MD Jul 03, 2017 12:53
--- NOTE | 2017-07-03 12:57 | HHI.PR ---
Subjective Remarks Nursing denies any deterioration since last night. States that patient is alert and oriented. Patient herself says she feels fine and is alert and oriented, consummate that she is at [facility] and that she was admitted due to her liver issues and that it is 2018. is also present at the bedside. He states that with 3 doses of lactulose orally a day she ends up having almost fecal incontinence and they thus reduced her home dose of lactulose down to twice a day - at which point she can actually maintain some fecal incontinence - but then they run the risk of her becoming altered. Objective Vital Signs Date Time Temp Pulse Resp B/P (MAP) Pulse Ox O2 Delivery O2 Flow Rate FiO2 07/03/17 08:00 97.8 75 16 101/55 (70) 99 07/03/17 04:00 97.8 79 20 96/51 (66) 99 07/03/17 00:00 97.9 72 20 106/58 (74) 99 07/02/17 22:20 97.6 67 16 96/57 (70) 100 07/02/17 20:08 52 07/02/17 20:00 97.7 72 20 87/51 (63) 98 07/02/17 18:15 97.5 72 18 96/54 (68) 99 07/02/17 17:40 07/02/17 17:32 64 16 100/57 (71) 99 Room Air 07/02/17 15:24 68 100 Room Air 07/02/17 15:07 97.5 65 16 100/60 (73) 100 I/O 07/02/17 07/02/17 07/02/17 07/03/17 07/03/17 07/03/17 07:00 15:00 23:00 07:00 15:00 23:00 Intake Total 0 ml 0 ml Balance 0 ml 0 ml Intake Oral 0 ml 0 ml # Voids 1 1 # Bowel Movements 1 5 Result Diagram: 07/02/17 1540 07/03/17 0635 Objective Remarks Patient alert and oriented 3 Abdomen is soft, nontender Mild diffuse jaundice A/P Problem List: (1) Hepatic encephalopathy ICD Code: K72.90 - Hepatic failure, unspecified without coma Status: Acute (2) Hyperammonemia ICD Code: E72.20 - Hyperammonemia Status: Acute Assessment and Plan Hepatic encephalopathy - clinically resolved, ammonia level has reduced from 115 to 40 with just 2 doses of lactulose (1 orally and 1 rectally). Per the patient is due for a another possible transplant evaluation meeting later in June that could possibly bumped the patient to the front end of her wait list. Had a thorough conversation with and the patient, we agreed to come up with a home regimen where patient is to dose herself lactulose at least 3 times a day and if her bowel movements become almost uncontrollable then and only then to titrate down to twice a day; this is to be followed by an up titration back to 3 times a day once her bowel movements to come more controlled. Additionally there were counseled that they could possibly administer rectal lactulose enemas if the patient becomes too confused to take oral lactulose to see if this helps minimize further emergency room visits and or hospitalizations. They were also counseled that I will reduce the patient's lasix from 20 mg to 10 to 20 mg a day to minimize dehydration. Patient has met maximal benefit from hospitalization and is clinically stable for discharge. In total, the time spent with the patient was over 35 minute of which more than 50% of patient care was spent discussing his or her care and counseling the patient and corresponding caregivers. Max Vines MD Jul 03, 2017 12:57
== END 2017-07-03 13:45 | disposition home or self-care (01) | DRG 442 ==
LOC: PHED 14:47 → PHEDA 16:45 → PH3B 17:46
PROVIDERS: ADMIT Hospitalist; ATTEND Hospitalist
DX: K72.90 Hepatic failure, unspecified without coma (principal); K76.6 Portal hypertension; E87.1 Hypo-osmolality and hyponatremia; Z96.642 Presence of left artificial hip joint; F10.21 Alcohol dependence, in remission; K70.30 Alcoholic cirrhosis of liver without ascites; E87.5 Hyperkalemia; E03.9 Hypothyroidism, unspecified; K21.9 Gastro-esophageal reflux disease without esophagitis; J45.909 Unspecified asthma, uncomplicated; D64.9 Anemia, unspecified; F32.9 Major depressive disorder, single episode, unspecified; F41.9 Anxiety disorder, unspecified; M19.90 Unspecified osteoarthritis, unspecified site; R15.9 Full incontinence of feces
CPT/HCPCS: 80053; 82140; 83690; 85025; 99285

== ENCOUNTER 2017-07-17 11:36 | Emergency (ER) | payer MEDICAID ==
[~2017-07-17] VITALS: Ht 162.6 cm; Wt 54.0 kg
[~2017-07-17 11:36] MED LIST changes: -FURO1TAB62 PO; +FURO20TA PO
[2017-07-17 12:16] VITALS: BP 116/58; PULSE 103; RESP 16; TEMP 101.4; O2SAT 100
[2017-07-17 12:29] VITALS: BP 179/77; PULSE 98; RESP 18; TEMP 100; O2SAT 100
[2017-07-17] MEDS ORDERED: OXYC1CAP PO (12:39)
[2017-07-17] MEDS ORDERED: BIOT10TA PO (12:39)
[2017-07-17] MEDS ORDERED: SODIUM CHLOR 0.9% 1000 ML INJ 1,000 ML IV ONE (13:00)
[2017-07-17] MEDS ORDERED: OSEL75 PO (13:10)
--- NOTE | 2017-07-17 13:10 | PD ---
HPI . Flu Chief Complaint: Cold / Flu Symptoms Time Seen by Provider: 12:55 Travel History International Travel<30 days: No Contact w/Intl Traveler<30days: No Traveled to known affect area: No History of Present Illness HPI This patient presents with flulike symptoms. Onset was last night. She reports fever and coughing. She states that she cannot take Tylenol because of cirrhosis of the liver and that she cannot take nonsteroidal anti-inflammatory agents because of GI bleed. Her is here with the same thing. PFSH Past Medical History Hx Anticoagulant Therapy: No Arthritis: Yes Asthma: Yes Autoimmune Disease: No Anxiety: Yes Depression: Yes Heart Rhythm Problems: No Cancer: No Cardiovascular Problems: Yes High Cholesterol: No Chemotherapy: No Chest Pain: No Congestive Heart Failure: No Cirrhosis: Yes (End stage ) COPD: No Cerebrovascular Accident: No Diabetes: No Diminished Hearing: No Endocrine: Yes Gastrointestinal Disorders: Yes (Upper GIB, varices, bleeding ulcers ) GERD: No Genitourinary: No Headaches: No Hepatitis: Yes (Alcoholic ) Hiatal Hernia: Yes Heparin Induced Thrombocytopen: No Hypertension: No Immune Disorder: No Implanted Vascular Access Dvce: No Kidney Stones: No Medical other: Yes (ESOPHAGEAL VARICES; LIVER CIRRHOSIS; THROMBOCYTOPENIA ;) Musculoskeletal: Yes (neck is "puffy" pt states "its puffy cause i have a endocrine problem") Neurologic: No Psychiatric: Yes Reproductive: No Respiratory: No Immunizations Current: Yes Migraines: No Radiation Therapy: No Renal Failure: No Seizures: No Sickle Cell Disease: No Sleep Apnea: No Thyroid Disease: Yes (Hypothyroidism) Ulcer: No Tetanus Vaccination: < 5 Years Influenza Vaccination: Yes ?: Not Menopausal: Yes Past Surgical History Abdominal Surgery: Yes (Umb. hernia repair ) AICD: No Body Medical Devices: NONE Cardiac Surgery: No Cholecystectomy: Yes (2006) Ear Surgery: No Endocrine Surgery: No Eye Surgery: No Genitourinary Surgery: No Gynecologic Surgery: No Hysterectomy: No Insulin Pump: No Joint Replacement: Yes (Lt. hip) Neurologic Surgery: No Oral Surgery: No Pacemaker: No Thoracic Surgery: No Other Surgery: Yes (Cholecystectomy) Social History Alcohol Use: No (H/O alcoholism ) Tobacco Use: No Substance Use: No Allergies-Medications (Allergen,Severity, Reaction): Coded Allergies: aspirin (Unverified Adverse Reaction, Severe, Bleeding, 07/17/17) codeine (Unverified Adverse Reaction, Severe, Vomiting, 07/17/17) morphine (Unverified Adverse Reaction, Severe, 07/17/17) Patient's states someone overdosed her on XR morphine nortriptyline (Unverified Adverse Reaction, Severe, Hallucinations, vomiting , 07/17/17) Reported Meds & Prescriptions Reported Meds & Active Scripts Active Lactulose Liq (Lactulose) 10 Gm/15 Ml Soln 30 Ml PO TID 30 Days administer between 2 to 3 times a day. If confused, administer an enema mixture of 150 ml liquid and 500 ml distillied water. Furosemide 20 Mg Tab 20 Mg PO DAILY half tab to full tab per day for ascites Propranolol (Propranolol HCl) 10 Mg Tab 10 Mg PO Q12HR Xifaxan (Rifaximin) 550 Mg Tab 550 Mg PO BID Zofran Odt (Ondansetron Odt) 4 Mg Tab 4 Mg SL Q8HR PRN Spironolactone 50 Mg Tab 50 Mg PO BIDPC Levothyroxine (Levothyroxine Sodium) 50 Mcg Tab 50 Mcg PO DAILY Reported Biotin 10 Mg Tab 10 Mg PO DAILY Oxycodone (Oxycodone HCl) 5 Mg Cap 5 Mg PO Q8H PRN Magnesium Oxide 500 Mg Tab 500 Mg PO DAILY 30 Days Pantoprazole (Pantoprazole Sodium) 40 Mg Tab 40 Mg PO DAILY Review of Systems Except as stated in HPI: all other systems reviewed are Neg General / Constitutional: Positive: Fever, Chills Respiratory: Positive: Cough Physical Exam Narrative GENERAL: Awake and alert and in no acute distress. SKIN: Warm and dry. Normal color and turgor. HEAD: Normocephalic/atraumatic. EYES: Pupils are equal. Extraocular movements are intact. ENT: Mucous membranes are moist. NECK: Normal range of motion. CARDIOVASCULAR: Regular rate and rhythm. Sinus tachycardia. RESPIRATORY: Nonlabored respirations. Lungs are clear with full air movement throughout. MUSCULOSKELETAL: Atraumatic. NEUROLOGICAL: Nonfocal. PSYCHIATRIC: Appropriate mood and affect. Data Data Last Documented VS Vital Signs Date Time Temp Pulse Resp B/P (MAP) Pulse Ox O2 Delivery O2 Flow Rate FiO2 07/17/17 12:29 99 100 Room Air 07/17/17 12:29 100.0 18 179/77 (111) Orders Orders Sodium Chlor 0.9% 1000 Ml Inj (Ns 1000 M (07/17/17 13:00) MDM Medical Decision Making Medical Screen Exam Complete: Yes Emergency Medical Condition: Yes Differential Diagnosis Differential diagnosis of fever includes but is not limited to viral illness, strep throat, otitis media, pneumonia, sepsis, UTI Narrative Course Patient presents with the acute onset of fever and cough. She is tachycardic. She was also febrile but states that she cannot take anything for her fever goes of cirrhosis of the liver and previous GI bleed. I will give her a liter of fluid. I will discharge her to home with instructions to drink plenty of fluids. Tamiflu for influenza. Diagnosis Primary Impression: Influenza Patient Instructions: General Instructions, Influenza (DC) Med/Other Pt SpecificInfo: Prescription(s) given Scripts Oseltamivir (Tamiflu) 75 Mg Cap 75 MG PO BID for Mgmt Viral Infection for 5 Days, #10 CAP 0 Refills Prov: Rocio Wells MD 07/17/17 Disposition: 01 DISCHARGE HOME Condition: Stable Rocio Wells MD Jul 17, 2017 13:10
[2017-07-17 13:18] VITALS: BP 117/62; PULSE 92; RESP 20; O2SAT 99
[2017-07-17 14:45] VITALS: BP 114/65
[2017-07-17 14:57] VITALS: BP 215/103; PULSE 100; RESP 18; O2SAT 98
== END 2017-07-17 14:55 | disposition home or self-care (01) ==
LOC: PHED 11:36
DX: J10.89 Influenza due to other identified influenza virus with other manifestations (principal); K74.60 Unspecified cirrhosis of liver; J45.909 Unspecified asthma, uncomplicated; Z88.5 Allergy status to narcotic agent
CPT/HCPCS: 96360; 96361; 99284; J7030

== ENCOUNTER 2017-08-31 08:33 | Observation (INO) | payer MEDICAID ==
[2017-08-31] VITALS (8 sets, daily range): BP systolic 99–117; BP diastolic 54–66; PULSE 60–73; RESP 16–20; TEMP 97.4–98.4; O2SAT 95–100
[~2017-08-31] VITALS: Ht 157.5 cm; Wt 55.9 kg
[~2017-08-31 08:33] MED LIST changes: +BIOT10TA PO; +OSEL75 PO; +OXYC1CAP PO; -POTA10TA2 PO
[2017-08-31] MEDS ORDERED: LACTULOSE SYRUP 20 GM/30 ML CUP PO ONE (09:00)
[2017-08-31 09:33] LABS: BILIRUBIN, URINE NEG (NEG); BLOOD, URINE NEG (NEG); GLUCOSE,URINE NEG (NEG); KETONE, URINE NEG (NEG); NITRITE,URINE NEG (NEG); PH, URINE 8.5 (5.0-8.5); URINE COLOR YELLOW (YELLW/STRAW); URINE LEUKOCYTE ESTERASE NEG (NEG)
[2017-08-31 09:34] LABS: AUTOMATED NEUTROPHIL # 3.9 TH/MM3 (1.8-7.7); BASOPHIL # 0.1 TH/MM3 (0-0.2); EOSINOPHIL # 0.5 TH/MM3 (0-0.4); EOSINOPHIL % 8.7 % (0.0-4.0); HEMATOCRIT 31.6 % (35.0-46.0); HEMOGLOBIN 10.6 GM/DL (11.6-15.3); LYMPH % 13.6 % (9.0-44.0); LYMPHOCYTE # 0.8 TH/MM3 (1.0-4.8); MEAN CELL VOLUME 86.7 FL (80.0-100.0); MEAN CORPUSCULAR HEMOGLOBIN 29.3 PG (27.0-34.0); MEAN CORPUSCULAR HGB CONC 33.8 % (32.0-36.0); MEAN PLATELET VOLUME 7.4 FL (7.0-11.0); MONO % 9.2 % (0.0-8.0); MONOCYTE # 0.5 TH/MM3 (0-0.9); NEUT % 67.5 % (16.0-70.0); PLATELET COUNT 134 TH/MM3 (150-450); RED BLOOD COUNT 3.64 MIL/MM3 (4.00-5.30); RED CELL DISTRIBUTION WIDTH 22.1 % (11.6-17.2); WHITE BLOOD COUNT 5.9 TH/MM3 (4.0-11.0)
[2017-08-31 09:46] LABS: RBC, URINE 0-3 /hpf (0-3)
[2017-08-31 09:47] LABS: RENAL EPITHELIAL CELLS 0-5 /hpf
[2017-08-31 10:20] LABS: CHLORIDE 106 MEQ/L (98-107); SODIUM (NA) 134 MEQ/L (136-145)
[2017-08-31 10:22] LABS: CALCIUM 8.2 MG/DL (8.5-10.1)
[2017-08-31 10:23] LABS: ALBUMIN 2.2 GM/DL (3.4-5.0); BICARBONATE 19.6 MEQ/L (21.0-32.0); BLOOD UREA NITROGEN 13 MG/DL (7-18); GLUCOSE,RANDOM 109 MG/DL (74-106)
[2017-08-31 10:26] LABS: ALT (GPT) 34 U/L (10-53); AST (GOT) 66 U/L (15-37); CREATININE 0.92 MG/DL (0.50-1.00); GLOMERULAR FILTRATION RATE 64 ML/MIN (>89)
[2017-08-31 10:27] LABS: TOTAL BILIRUBIN ADULT 1.7 MG/DL (0.2-1.0)
[2017-08-31 10:28] LABS: TOTAL PROTEIN 7.9 GM/DL (6.4-8.2)
[2017-08-31 10:29] LABS: ALKALINE PHOSPHATASE 215 U/L (45-117)
--- NOTE | 2017-08-31 11:21 | PD ---
HPI Chief Complaint: Altered Mental Status Time Seen by Provider: 08:51 Travel History International Travel<30 days: No Contact w/Intl Traveler<30days: No Traveled to known affect area: No History of Present Illness HPI This is a 52-year-old female who presents the ER for altered mental status. Patient has history of end-stage liver disease and according to the she is on a list for liver transplant. She has been treated at [place], for the last 2 days patient has been lethargic, weak, increased somnolence. According to the he states that she has not been taking her lactulose for the last 3 days. There is n head trauma, no falls, no chest pain or abdominal pain. PFSH Past Medical History Hx Anticoagulant Therapy: No Arthritis: Yes Asthma: Yes Autoimmune Disease: No Anxiety: Yes Depression: Yes Heart Rhythm Problems: No Cancer: No Cardiovascular Problems: Yes High Cholesterol: No Chemotherapy: No Chest Pain: No Congestive Heart Failure: No Cirrhosis: Yes (End stage ) COPD: No Cerebrovascular Accident: No Diabetes: No Diminished Hearing: No Endocrine: Yes Gastrointestinal Disorders: Yes (Upper GIB, varices, bleeding ulcers ) GERD: No Genitourinary: No Headaches: No Hepatitis: Yes (Alcoholic ) Hiatal Hernia: Yes Heparin Induced Thrombocytopen: No Hypertension: No Immune Disorder: No Implanted Vascular Access Dvce: No Kidney Stones: No Medical other: Yes (ESOPHAGEAL VARICES; LIVER CIRRHOSIS; THROMBOCYTOPENIA ;) Musculoskeletal: Yes (neck is "puffy" pt states "its puffy cause i have a endocrine problem") Neurologic: No Psychiatric: Yes Reproductive: No Respiratory: No Immunizations Current: Yes Migraines: No Radiation Therapy: No Renal Failure: No Seizures: No Sickle Cell Disease: No Sleep Apnea: No Thyroid Disease: Yes (Hypothyroidism) Ulcer: No ?: Not Menopausal: Yes Past Surgical History Abdominal Surgery: Yes (Umb. hernia repair ) AICD: No Body Medical Devices: NONE Cardiac Surgery: No Cholecystectomy: Yes (2006) Ear Surgery: No Endocrine Surgery: No Eye Surgery: No Genitourinary Surgery: No Gynecologic Surgery: No Hysterectomy: No Insulin Pump: No Joint Replacement: Yes (Lt. hip) Neurologic Surgery: No Oral Surgery: No Pacemaker: No Thoracic Surgery: No Other Surgery: Yes (Cholecystectomy) Social History Alcohol Use: No (H/O alcoholism ) Tobacco Use: No Substance Use: No Allergies-Medications (Allergen,Severity, Reaction): Coded Allergies: aspirin (Unverified Adverse Reaction, Severe, Bleeding, 08/31/17) codeine (Unverified Adverse Reaction, Severe, Vomiting, 08/31/17) morphine (Unverified Adverse Reaction, Severe, 08/31/17) Patient's states someone overdosed her on XR morphine nortriptyline (Unverified Adverse Reaction, Severe, Hallucinations, vomiting , 08/31/17) Reported Meds & Prescriptions Reported Meds & Active Scripts Active Lactulose Liq (Lactulose) 10 Gm/15 Ml Soln 30 Ml PO TID 30 Days administer between 2 to 3 times a day. If confused, administer an enema mixture of 150 ml liquid and 500 ml distillied water. Furosemide 20 Mg Tab 20 Mg PO DAILY half tab to full tab per day for ascites Propranolol (Propranolol HCl) 10 Mg Tab 10 Mg PO Q12HR Xifaxan (Rifaximin) 550 Mg Tab 550 Mg PO BID Zofran Odt (Ondansetron Odt) 4 Mg Tab 4 Mg SL Q8HR PRN Spironolactone 50 Mg Tab 50 Mg PO BIDPC Levothyroxine (Levothyroxine Sodium) 50 Mcg Tab 50 Mcg PO DAILY Reported Biotin 10 Mg Tab 10 Mg PO DAILY Magnesium Oxide 500 Mg Tab 500 Mg PO DAILY 30 Days Pantoprazole (Pantoprazole Sodium) 40 Mg Tab 40 Mg PO DAILY Review of Systems Except as stated in HPI: all other systems reviewed are Neg Physical Exam Narrative GENERAL: Somnolent response to verbal stimuli easily arousable. SKIN: Focused skin assessment warm/dry. HEAD: Atraumatic. Normocephalic. EYES: Mild jaundice, pupils equal and round. No injection or drainage. ENT: No nasal bleeding or discharge. Mucous membranes pink and moist. NECK: Trachea midline. No JVD. CARDIOVASCULAR: Regular rate and rhythm. No murmur appreciated. RESPIRATORY: No accessory muscle use. Clear to auscultation. Breath sounds equal bilaterally. GASTROINTESTINAL: Moderate ascites, abdomen soft, non-tender, nondistended. Hepatic enlargement. MUSCULOSKELETAL: No obvious deformities. No clubbing. No cyanosis. No edema. NEUROLOGICAL: Somnolent, moves all extremities, unable to follow commands. Data Data Last Documented VS Vital Signs Date Time Temp Pulse Resp B/P (MAP) Pulse Ox O2 Delivery O2 Flow Rate FiO2 08/31/17 10:09 64 16 117/66 (83) Room Air 08/31/17 09:03 95 08/31/17 08:46 98.0 Orders Orders Complete Blood Count With Diff (08/31/17 08:51) Comprehensive Metabolic Panel (08/31/17 08:51) Urinalysis - C+S If Indicated (08/31/17 08:51) Lactic Acid (08/31/17 09:00) Ammonia (08/31/17 09:00) Lactulose Liq (Lactulose Liq) (08/31/17 09:00) B-Type Natriuretic Peptide (08/31/17 09:39) Chest, Single Ap (08/31/17 ) Labs Laboratory Tests Test 08/31/17 09:09 08/31/17 09:14 White Blood Count 5.9 TH/MM3 Red Blood Count 3.64 MIL/MM3 Hemoglobin 10.6 GM/DL Hematocrit 31.6 % Mean Corpuscular Volume 86.7 FL Mean Corpuscular Hemoglobin 29.3 PG Mean Corpuscular Hemoglobin Concent 33.8 % Red Cell Distribution Width 22.1 % Platelet Count 134 TH/MM3 Mean Platelet Volume 7.4 FL Neutrophils (%) (Auto) 67.5 % Lymphocytes (%) (Auto) 13.6 % Monocytes (%) (Auto) 9.2 % Eosinophils (%) (Auto) 8.7 % Basophils (%) (Auto) 1.0 % Neutrophils # (Auto) 3.9 TH/MM3 Lymphocytes # (Auto) 0.8 TH/MM3 Monocytes # (Auto) 0.5 TH/MM3 Eosinophils # (Auto) 0.5 TH/MM3 Basophils # (Auto) 0.1 TH/MM3 CBC Comment DIFF FINAL Differential Comment Blood Urea Nitrogen 13 MG/DL Creatinine 0.92 MG/DL Random Glucose 109 MG/DL Total Protein 7.9 GM/DL Albumin 2.2 GM/DL Calcium Level 8.2 MG/DL Alkaline Phosphatase 215 U/L Aspartate Amino Transf (AST/SGOT) 66 U/L Alanine Aminotransferase (ALT/SGPT) 34 U/L Total Bilirubin 1.7 MG/DL Sodium Level 134 MEQ/L Potassium Level 5.0 MEQ/L Chloride Level 106 MEQ/L Carbon Dioxide Level 19.6 MEQ/L Anion Gap 8 MEQ/L Estimat Glomerular Filtration Rate 64 ML/MIN Lactic Acid Level 2.2 mmol/L Ammonia 130 MCMOL/L B-Type Natriuretic Peptide 37 PG/ML Urine Collection Type CATH Urine Color YELLOW Urine Turbidity CLEAR Urine pH 8.5 Urine Specific [place] 1.010 Urine Protein NEG mg/dL Urine Glucose (UA) NEG mg/dL Urine Ketones NEG mg/dL Urine Occult Blood NEG Urine Nitrite NEG Urine Bilirubin NEG Urine Urobilinogen 0.2 MG/DL Urine Leukocyte Esterase NEG Urine RBC 0-3 /hpf Urine Squamous Epithelial Cells 6-8 /hpf Urine Renal Epithelial Cells 0-5 /hpf Microscopic Urinalysis Comment CATH-CULT NOT IND Urine Collection Time 09:14 [facility] Medical Decision Making Medical Screen Exam Complete: Yes Emergency Medical Condition: Yes Differential Diagnosis Hepatic encephalopathy, UTI. Narrative Course This is a 52-year-old female who presents to the ER complaining of confusion and somnolence, elevated ammonia level of 130. Patient did not take lactulose for last 2 days. Will admit the patient for hepatic encephalopathy for further management. Explained to the has been in the bedside and he agrees to the plan of care. I spoke with Dr. Christie will help with the treatment the patient. Diagnosis Primary Impression: Hepatic encephalopathy Admitting Information Admitting Physician Requests: Admit Condition: Stable Jose Castro MD Aug 31, 2017 11:21
--- NOTE | 2017-08-31 11:34 | RADRPT ---
EXAM DATE/TIME: 08/31/2017 11:08 [facility] COMPARISON: CHEST SINGLE AP, April 26, 2017, 15:34. INDICATIONS : Short of breath. MEDICAL HISTORY : Hiatal hernia. Hypothyroidism. Anorexia, Bulimia, Asthma, alcoholic hepatitis, cirrhosis SURGICAL HISTORY : Cholecystectomy. Umbilical hernia repair. Esophageal banding. ENCOUNTER: Initial ACUITY: 1 day PAIN SCORE: 0/10 LOCATION: Bilateral chest FINDINGS: The heart is normal in size. The lungs are clear. The visualized bony structures are grossly intact. CONCLUSION: 1. No acute cardiopulmonary findings are identified. Hussain Anderson MD on August 31, 2017 at 11:31 Board Certified Radiologist. This report was verified electronically.
[2017-08-31] MEDS ORDERED: ONDANSETRON HCL 4 MG/2 ML VIAL IVP PRN (12:30)
[2017-08-31] MEDS ORDERED: SODIUM CHLORIDE 0.9% FLUSH 10 ML FLUSH IV FLUSH PRN (12:30)
[2017-08-31] MEDS ORDERED: SENNOSIDES 8.6 MG TAB PO PRN (12:30)
[2017-08-31] MEDS ORDERED: NALOXONE HCL 0.4 MG/ML AMP IV PUSH PRN (12:30)
[2017-08-31] MEDS ORDERED: ONDANSETRON ODT 4 MG TAB SL PRN (13:30)
--- NOTE | 2017-08-31 13:34 | HHI.HP ---
[facility]ician David Vo MD Admission Diagnosis HEPATIC ENCEPHALOPATHY Diagnoses: Chief Complaint: Confusion Travel History International Travel<30 Days: No Contact w/Intl Traveler <30 Da: No Traveled to Known Affected Are: No History of Present Illness Patient is a 52-year-old female was presented to the emergency room with increased confusion over the last 24 hours. She has known end-stage liver disease and has not been taking her lactulose for several days. She is being followed in [place] for a liver transplant. is not available at this time and history is obtained from the chart. Patient simply stares out and says "umm hmm". Her vital signs are otherwise stable. Her ammonia level is 130. Patient has frequent episodes of encephalopathy related to hyperammonemia. She will be observed in the hospital for improvement with lactulose and to rule out alternative diagnoses. Review of Systems Constitutional: DENIES: Diaphoretic episodes, Fatigue, Fever, Weight gain, Weight loss, Chills, Dizziness, Change in appetite, Night Sweats Eyes: DENIES: Blurred vision, Diplopia, Eye inflammation, Eye pain, Vision loss , Photosensitivity, Double Vision Ears, nose, mouth, throat: DENIES: Tinnitus, Hearing loss, Vertigo, Nasal discharge, Oral lesions, Throat pain, Hoarseness, Ear Pain, Running Nose, Epistaxis, Sinus Pain, Toothache, Odynophagia Respiratory: DENIES: Apneas, Cough, Snoring, Wheezing, Hemoptysis, Sputum production, Shortness of breath Cardiovascular: DENIES: Chest pain, Palpitations, Syncope, Dyspnea on Exertion , PND, Lower Extremity Edema, Orthopnea, Claudication Gastrointestinal: DENIES: Abdominal pain, Black stools, Bloody stools, Constipation, Diarrhea, Nausea, Vomiting, Difficulty Swallowing, Anorexia Genitourinary: DENIES: Abnormal vaginal bleeding, Dysmenorrhea, Dyspareunia, Sexual dysfunction, Urinary frequency, Urinary incontinence, Urgency, Hematuria , Dysuria, Nocturia, Vaginal discharge Musculoskeletal: DENIES: Joint pain, Muscle aches, Stiffness, Joint Swelling, Back pain, Neck pain Integumentary: DENIES: Abnormal pigmentation, Pruritus, Rash, Nail changes, Breast masses, Breast skin changes, Nipple discharge Hematologic/lymphatic: DENIES: Bruising, Lymphadenopathy Neurologic: DENIES: Abnormal gait, Headache, Localized weakness, Paresthesias, Seizures, Speech Problems, Tremor, Poor Balance Psychiatric: COMPLAINS OF: Confusion, DENIES: Anxiety, Mood changes, Depression , Hallucinations, Agitation, Suicidal Ideation, Homicidal Ideation, Delusions Except as stated in HPI: all other systems reviewed are Neg Past Family Social History Past Medical History Hypothyroidism Esophageal varices and hepatic cirrhosis chronic thrombocytopenia related to alcohol dependency Recurrent hepatic encephalopathy Past Surgical History Umbilical hernia repair Cholecystectomy Left hip replacement History of hepatic encephalopathy secondary to alcohol related cirrhosis Hypothyroidism Reported Medications Reviewed in the EMR Allergies: Coded Allergies: aspirin (Unverified Adverse Reaction, Severe, Bleeding, 08/31/17) codeine (Unverified Adverse Reaction, Severe, Vomiting, 08/31/17) morphine (Unverified Adverse Reaction, Severe, 08/31/17) Patient's states someone overdosed her on XR morphine nortriptyline (Unverified Adverse Reaction, Severe, Hallucinations, vomiting , 08/31/17) Active Ordered Medications Reviewed in the EMR Family History Hypertension Social History . Her , no tobacco or alcohol dependency Physical Exam Vital Signs Vital Signs Date Time Temp Pulse Resp B/P (MAP) Pulse Ox O2 Delivery O2 Flow Rate FiO2 08/31/17 13:23 08/31/17 12:26 73 16 110/54 (72) 98 Room Air 08/31/17 11:45 66 18 109/64 (79) 100 Room Air 08/31/17 10:09 64 16 117/66 (83) Room Air 08/31/17 09:03 60 16 107/61 (76) 95 Room Air 08/31/17 08:46 98.0 61 16 112/65 (81) 100 Physical Exam GENERAL: This is a well-nourished, well-developed patient, answering vaguely and unable to complete history SKIN: No rashes, ecchymoses or lesions. Cool and dry. HEAD: Atraumatic. Normocephalic. No temporal or scalp tenderness. EYES: Pupils equal round and reactive. Extraocular motions intact. No scleral icterus. No injection or drainage. ENT: Nose without bleeding, purulent drainage or septal hematoma. Throat without erythema, tonsillar hypertrophy or exudate. Uvula midline. Airway patent. NECK: Trachea midline. No JVD or lymphadenopathy. Supple, nontender, no meningeal signs. CARDIOVASCULAR: Regular rate and rhythm without murmurs, gallops, or rubs. RESPIRATORY: Clear to auscultation. Breath sounds equal bilaterally. No wheezes , rales, or rhonchi. GASTROINTESTINAL: Abdomen soft, non-tender, nondistended. No hepato-splenomegaly , or palpable masses. No guarding. MUSCULOSKELETAL: Extremities without clubbing, cyanosis, or edema. No joint tenderness, effusion, or edema noted. No calf tenderness. Negative Homans sign bilaterally. NEUROLOGICAL: Awake and alert. Cranial nerves II through XII intact. Motor and sensory grossly within normal limits. Five out of 5 muscle strength in all muscle groups. Normal speech. Laboratory Laboratory Tests Test 08/31/17 09:09 08/31/17 09:14 White Blood Count 5.9 Red Blood Count 3.64 Hemoglobin 10.6 Hematocrit 31.6 Mean Corpuscular Volume 86.7 Mean Corpuscular Hemoglobin 29.3 Mean Corpuscular Hemoglobin Concent 33.8 Red Cell Distribution Width 22.1 Platelet Count 134 Mean Platelet Volume 7.4 Neutrophils (%) (Auto) 67.5 Lymphocytes (%) (Auto) 13.6 Monocytes (%) (Auto) 9.2 Eosinophils (%) (Auto) 8.7 Basophils (%) (Auto) 1.0 Neutrophils # (Auto) 3.9 Lymphocytes # (Auto) 0.8 Monocytes # (Auto) 0.5 Eosinophils # (Auto) 0.5 Basophils # (Auto) 0.1 CBC Comment DIFF FINAL Differential Comment Blood Urea Nitrogen 13 Creatinine 0.92 Random Glucose 109 Total Protein 7.9 Albumin 2.2 Calcium Level 8.2 Alkaline Phosphatase 215 Aspartate Amino Transf (AST/SGOT) 66 Alanine Aminotransferase (ALT/SGPT) 34 Total Bilirubin 1.7 Sodium Level 134 Potassium Level 5.0 Chloride Level 106 Carbon Dioxide Level 19.6 Anion Gap 8 Estimat Glomerular Filtration Rate 64 Lactic Acid Level 2.2 Ammonia 130 B-Type Natriuretic Peptide 37 Urine Collection Type CATH Urine Color YELLOW Urine Turbidity CLEAR Urine pH 8.5 Urine Specific [place] 1.010 Urine Protein NEG Urine Glucose (UA) NEG Urine Ketones NEG Urine Occult Blood NEG Urine Nitrite NEG Urine Bilirubin NEG Urine Urobilinogen 0.2 Urine Leukocyte Esterase NEG Urine RBC 0-3 Urine Squamous Epithelial Cells 6-8 Urine Renal Epithelial Cells 0-5 Microscopic Urinalysis Comment CATH-CULT NOT IND Urine Collection Time 09:14 Result Diagram: 08/31/17 0909 08/31/17 0909 Imaging Last Impressions Chest X-Ray 08/31/17 0000 Signed Impressions: Service Date/Time: Thursday, August 31, 2017 11:08 - CONCLUSION: 1. No acute cardiopulmonary findings are identified. Hussain Anderson MD Septic Shock Reassessment Septic shock perfusion: reassessment completed Caprini VTE Risk Assessment Caprini VTE Risk Assessment: Mod/High Risk (score >= 2) VTE Pharm Contraindication: Coagulopathy,INR elevated Caprini Risk Assessment Model Point Value = 1 Point Value = 2 Point Value = 3 Point Value = 5 Age 41-60 Minor surgery BMI > 25 kg/m2 Swollen legs Varicose veins or History of unexplained or recurrent spontaneous Oral contraceptives or hormone replacement Sepsis (< 1 month) Serious lung disease, including pneumonia (< 1 month) Abnormal pulmonary function Acute myocardial infarction Congestive heart failure (< 1 month) History of inflammatory bowel disease Medical patient at bed rest Age 61-74 Arthroscopic surgery Major open surgery (> 45 min) Laparoscopic surgery (> 45 min) Malignancy Confined to bed (> 72 hours) Immobilizing plaster cast Central venous access Age >= 75 History of VTE Family history of VTE Factor V Leiden Prothrombin [id number] Lupus anticoagulant Anticardiolipin antibodies Elevated serum homocysteine Heparin-induced thrombocytopenia Other congenital or acquired thrombophilia Stroke (< 1 month) Elective arthroplasty Hip, pelvis, or leg fracture Acute spinal cord injury (< 1 month) Prophylaxis Regimen Total Risk Factor Score Risk Level Prophylaxis Regimen 0-1 Low Early ambulation 2 Moderate Order ONE of the following: *Sequential Compression Device (SCD) *Heparin 5000 units SQ BID 3-4 Higher Order ONE of the following medications: *Heparin 5000 units SQ TID *Enoxaparin/Lovenox 40 mg SQ daily (WT < 150 kg, CrCl > 30 mL/min) *Enoxaparin/Lovenox 30 mg SQ daily (WT < 150 kg, CrCl > 10-29 mL/min) *Enoxaparin/Lovenox 30 mg SQ BID (WT < 150 kg, CrCl > 30 mL/min) AND/OR *Sequential Compression Device (SCD) 5 or more Highest Order ONE of the following medications: *Heparin 5000 units SQ TID (Preferred with Epidurals) *Enoxaparin/Lovenox 40 mg SQ daily (WT < 150 kg, CrCl > 30 mL/min) *Enoxaparin/Lovenox 30 mg SQ daily (WT < 150 kg, CrCl > 10-29 mL/min) *Enoxaparin/Lovenox 30 mg SQ BID (WT < 150 kg, CrCl > 30 mL/min) AND *Sequential Compression Device (SCD) Assessment and Plan Problem List: (1) Encephalopathy ICD Code: G93.40 - Encephalopathy, unspecified Plan: likely metabolic due to hepatic encephalopathy, patient's ammonia level was elevated Will need to rule out sepsis and intracranial pathology as well Resume home medications and continue with diuresis with Aldactone and Lasix, continue lactulose and follow up electrolytes Follow-up CT of the brain No evidence of SBP at this time I attempted to call the spouse and he is unavailable Caryn Christie MD Aug 31, 2017 13:34
[2017-08-31 14:31] LABS: INTERNATIONAL NORMALIZED RATIO 1.3 RATIO; PROTHROMBIN TIME - PATIENT 13.4 SEC (9.8-11.6)
--- NOTE | 2017-08-31 15:32 | RADRPT ---
EXAM DATE/TIME: 08/31/2017 14:46 [facility] COMPARISON: CT BRAIN W/O CONTRAST, November 19, 2016, 14:38. CT BRAIN W/O CONTRAST, May 27, 2017, 15:07. INDICATIONS : Altered mental status. Lethargic. RADIATION DOSE: 41.91 CTDIvol (mGy) MEDICAL HISTORY : Cirrhosis. Cardiovascular disease Hypertension.Hepatitis. SURGICAL HISTORY : Cholecystectomy. Umbilical hernia repair. ENCOUNTER: Initial ACUITY: 2 days PAIN SCALE: 0/10 LOCATION: cranial TECHNIQUE: Multiple contiguous axial images were obtained of the head. Using automated exposure control and adj ustment of the mA and/or kV according to patient size, radiation dose was kept as low as reasonably a chievable to obtain optimal diagnostic quality images. DICOM format image data is available electro nically for review and comparison. FINDINGS: CEREBRUM: The ventricles are normal for age. No evidence of midline shift, mass lesion, hemorrhage or acute in farction. No extra-axial fluid collections are seen. POSTERIOR FOSSA: There is questionable fullness of the cerebral pontine angle on the right. This may be artifactual ho wever, I cannot exclude a small acoustic schwannoma on the right. MRI imaging with contrast at some p oint would be beneficial for further assessment. EXTRACRANIAL: The visualized portion of the orbits is intact. SKULL: The calvaria is intact. No evidence of skull fracture. CONCLUSION: 1. Subtle fullness of the cerebral pontine angle on the right. This area measures approximately 0.8 x 0.8 cm and could possibly represent a small acoustic schwannoma. MRI imaging at some point would be of benefit for further assessment. 2. No acute intercranial abnormality seen. 1. Hussain Anderson MD on August 31, 2017 at 15:26 Board Certified Radiologist. This report was verified electronically.
[2017-08-31] MEDS: PANTOPRAZOLE SOD 40 MG DELAYED RELEASE TAB PO SCH (17:20)
[2017-08-31] MEDS: RIFAXIMIN 550 MG TAB PO SCH ×2 (17:20→20:28)
[2017-08-31] MEDS: LEVOTHYROXINE SODIUM 50 MCG TAB PO SCH (17:20)
[2017-08-31] MEDS: SPIRONOLACTONE 50 MG TAB PO SCH (17:55)
[2017-08-31] MEDS: LACTULOSE SYRUP 20 GM/30 ML CUP PO SCH (17:55)
[2017-08-31] MEDS: SODIUM CHLORIDE 0.9% FLUSH 10 ML FLUSH IV FLUSH SCH (20:28)
[2017-08-31] MEDS: PROPRANOLOL HCL 10 MG TAB PO SCH (20:28)
[2017-09-01] VITALS: BP 94/53; PULSE 69; RESP 20; TEMP 97.8; O2SAT 99
[2017-09-01] MEDS: LEVOTHYROXINE SODIUM 50 MCG TAB PO SCH (05:05)
[2017-09-01 05:34] LABS: BASOPHIL # 0.2 TH/MM3 (0-0.2); BASOPHIL % 4.3 % (0.0-2.0); EOSINOPHIL # 0.6 TH/MM3 (0-0.4); EOSINOPHIL % 15.6 % (0.0-4.0); HEMATOCRIT 29.9 % (35.0-46.0); HEMOGLOBIN 9.3 GM/DL (11.6-15.3); LYMPH % 20.4 % (9.0-44.0); LYMPHOCYTE # 0.8 TH/MM3 (1.0-4.8); MEAN CORPUSCULAR HEMOGLOBIN 26.7 PG (27.0-34.0); MEAN CORPUSCULAR HGB CONC 31.1 % (32.0-36.0); MEAN PLATELET VOLUME 7.3 FL (7.0-11.0); MONO % 12.1 % (0.0-8.0); MONOCYTE # 0.5 TH/MM3 (0-0.9); NEUT % 47.6 % (16.0-70.0); PLATELET COUNT 126 TH/MM3 (150-450); RED BLOOD COUNT 3.48 MIL/MM3 (4.00-5.30); WHITE BLOOD COUNT 4.1 TH/MM3 (4.0-11.0)
[2017-09-01 05:49] LABS: CALCIUM 8.1 MG/DL (8.5-10.1)
[2017-09-01 05:50] LABS: BICARBONATE 19.5 MEQ/L (21.0-32.0)
[2017-09-01 05:53] LABS: CREATININE 0.86 MG/DL (0.50-1.00)
[2017-09-01] MEDS ORDERED: FUROSEMIDE 20 MG TAB PO SCH (09:00)
[2017-09-01 09:20] VITALS: BP 113/56; PULSE 66; RESP 16; TEMP 98; O2SAT 97
--- NOTE | 2017-09-01 09:21 | HHI.DCPOC ---
Discharge Care Plan Diagnosis: (1) Hepatic encephalopathy (2) Hyperammonemia Goals to Promote Your Health * To prevent worsening of your condition and complications * To maintain your health at the optimal level Directions to Meet Your Goals Take your medications as prescribed Follow your dietary instruction Follow activity as directed Keep your appointments as scheduled Take your immunizations and boosters as scheduled If your symptoms worsen call your PCP, if no PCP go to Urgent Care Center or Emergency Room Smoking is Dangerous to Your Health. Avoid second hand smoke Call the 24-hour hour crisis hotline for domestic abuse at Caryn Christie MD Sep 01, 2017 09:20
[2017-09-01] MEDS: LACTULOSE SYRUP 20 GM/30 ML CUP PO SCH (09:50)
[2017-09-01] MEDS: RIFAXIMIN 550 MG TAB PO SCH (09:50)
[2017-09-01] MEDS: SPIRONOLACTONE 50 MG TAB PO SCH (09:52)
[2017-09-01] MEDS: PROPRANOLOL HCL 10 MG TAB PO SCH (09:52)
[2017-09-01] MEDS: PANTOPRAZOLE SOD 40 MG DELAYED RELEASE TAB PO SCH (09:52)
[2017-09-01] MEDS: SODIUM CHLORIDE 0.9% FLUSH 10 ML FLUSH IV FLUSH SCH (09:54)
--- NOTE | 2017-09-01 10:42 | HHI.DS ---
Discharge Summary Admission Date Aug 31, 2017 at 11:31 Discharge Date: Sep 01, 2017 Admitting Diagnosis HEPATIC ENCEPHALOPATHY (1) Encephalopathy ICD Code: G93.40 - Encephalopathy, unspecified Procedures none Brief History - From Admission Patient is a 52-year-old female was presented to the emergency room with increased confusion over the last 24 hours. She has known end-stage liver disease and has not been taking her lactulose for several days. She is being followed in [place] for a liver transplant. is not available at this time and history is obtained from the chart. Patient simply stares out and says "umm [facility]". Her vital signs are otherwise stable. Her ammonia level is 130. Patient has frequent episodes of encephalopathy related to hyperammonemia. She will be observed in the hospital for improvement with lactulose and to rule out alternative diagnoses. CBC/BMP: 09/01/17 0522 09/01/17 0522 Significant Findings Laboratory Tests Test 08/31/17 09:09 08/31/17 09:14 09/01/17 05:22 Red Blood Count 3.64 MIL/MM3 (4.00-5.30) 3.48 MIL/MM3 (4.00-5.30) Hemoglobin 10.6 GM/DL (11.6-15.3) 9.3 GM/DL (11.6-15.3) Hematocrit 31.6 % (35.0-46.0) 29.9 % (35.0-46.0) Red Cell Distribution Width 22.1 % (11.6-17.2) 21.0 % (11.6-17.2) Platelet Count 134 TH/MM3 (150-450) 126 TH/MM3 (150-450) Monocytes (%) (Auto) 9.2 % (0.0-8.0) 12.1 % (0.0-8.0) Eosinophils (%) (Auto) 8.7 % (0.0-4.0) 15.6 % (0.0-4.0) Lymphocytes # (Auto) 0.8 TH/MM3 (1.0-4.8) 0.8 TH/MM3 (1.0-4.8) Eosinophils # (Auto) 0.5 TH/MM3 (0-0.4) 0.6 TH/MM3 (0-0.4) Prothrombin Time 13.4 SEC (9.8-11.6) Random Glucose 109 MG/DL (74-106) 73 MG/DL (74-106) Albumin 2.2 GM/DL (3.4-5.0) Calcium Level 8.2 MG/DL (8.5-10.1) 8.1 MG/DL (8.5-10.1) Alkaline Phosphatase 215 U/L (45-117) Aspartate Amino Transf (AST/SGOT) 66 U/L (15-37) Total Bilirubin 1.7 MG/DL (0.2-1.0) Sodium Level 134 MEQ/L (136-145) Carbon Dioxide Level 19.6 MEQ/L (21.0-32.0) 19.5 MEQ/L (21.0-32.0) Estimat Glomerular Filtration Rate 64 ML/MIN (>89) 69 ML/MIN (>89) Lactic Acid Level 2.2 mmol/L (0.4-2.0) Ammonia 130 MCMOL/L (11-32) 66 MCMOL/L (11-32) Acetaminophen Level LESS THAN 2.0 MCG/ML Urine Squamous Epithelial Cells 6-8 /hpf (0-5) Mean Corpuscular Hemoglobin 26.7 PG (27.0-34.0) Mean Corpuscular Hemoglobin Concent 31.1 % (32.0-36.0) Basophils (%) (Auto) 4.3 % (0.0-2.0) Chloride Level 109 MEQ/L (98-107) Imaging Last Impressions Head CT 08/31/17 0000 Signed Impressions: Service Date/Time: Thursday, August 31, 2017 14:46 - CONCLUSION: 1. Subtle fullness of the cerebral pontine angle on the right. This area measures approximately 0.8 x 0.8 cm and could possibly represent a small acoustic schwannoma. MRI imaging at some point would be of benefit for further assessment. 2. No acute intercranial abnormality seen. 1. Hussain Anderson MD Chest X-Ray 08/31/17 0000 Signed Impressions: Service Date/Time: Thursday, August 31, 2017 11:08 - CONCLUSION: 1. No acute cardiopulmonary findings are identified. Hussain Anderson MD PE at Discharge GENERAL: This is a well-nourished, well-developed patient, in no apparent distress. CARDIOVASCULAR: Regular rate and rhythm without murmurs, gallops, or rubs. RESPIRATORY: Clear to auscultation. Breath sounds equal bilaterally. No wheezes , rales, or rhonchi. GASTROINTESTINAL: Abdomen soft, non-tender, nondistended. Normal active bowel sounds MUSCULOSKELETAL: Extremities without clubbing, cyanosis, or edema. NEURO: Alert & Oriented x4 to person, place, time, situation. Moves all ext x4 Pt update on day of discharge Patient seen today in follow for discharge planning. Doing well. Ambulating MRI findings discussed with patient and she will follow-up as an outpatient Hospital Course Patient with chronic hepatic failure secondary to alcoholism. Presents frequently with hepatic encephalopathy. Patient has stopped taking her lactulose and at this time it has been resumed and her lactulose has seemingly helped her elevated ammonia level. She is back to baseline and will go home Pt Condition on Discharge: Good Discharge Disposition: Discharge Home Discharge Time: <= 30 minutes Discharge Instructions DIET: Follow Instructions for: As Tolerated, No Restrictions Activities you can perform: Regular-No Restrictions Continued Medications: Biotin (Biotin) 10 Mg Tab 10 MG PO DAILY for Nutritional Supplement, #1 BOTTLE 0 Refills Furosemide (Furosemide) 20 Mg Tab 20 MG PO DAILY for ascities, #30 TAB 0 Refills half tab to full tab per day for ascites Lactulose Liq (Lactulose Liq) 10 Gm/15 Ml Soln 30 ML PO TID for hepatic encephalopathy for 30 Days, #1 LITER 0 Refills administer between 2 to 3 times a day. If confused, administer an enema mixture of 150 ml liquid and 500 ml distillied water. Levothyroxine (Levothyroxine) 50 Mcg Tab 50 MCG PO DAILY for Thyroid, #30 TAB 0 Refills Magnesium Oxide (Magnesium Oxide) 500 Mg Tab 500 MG PO DAILY for 30 Days, #30 TAB 0 Refills Ondansetron Odt (Zofran Odt) 4 Mg Tab 4 MG SL Q8HR PRN for Nausea/Vomiting, #30 TAB 0 Refills Pantoprazole (Pantoprazole) 40 Mg Tab 40 MG PO DAILY for Reflux, #30 TAB 0 Refills Propranolol (Propranolol) 10 Mg Tab 10 MG PO Q12HR for prevent esophageal bleed, #60 TAB 0 Refills Rifaximin (Xifaxan) 550 Mg Tab 550 MG PO BID for Liver, #60 TAB Spironolactone (Spironolactone) 50 Mg Tab 50 MG PO BIDPC for fluid retention, #60 TAB 0 Refills Caryn Christie MD Sep 01, 2017 10:42
== END 2017-09-01 11:32 | disposition home or self-care (01) ==
LOC: PHED 08:33 → PHEDA 11:31 → PH3A 13:11
PROVIDERS: ADMIT Hospitalist; ATTEND Hospitalist
DX: G93.40 Encephalopathy, unspecified (principal); K70.30 Alcoholic cirrhosis of liver without ascites; K72.10 Chronic hepatic failure without coma; F10.20 Alcohol dependence, uncomplicated; R06.02 Shortness of breath; J45.909 Unspecified asthma, uncomplicated; E03.9 Hypothyroidism, unspecified; F41.9 Anxiety disorder, unspecified; F32.9 Major depressive disorder, single episode, unspecified; M19.90 Unspecified osteoarthritis, unspecified site; Z96.642 Presence of left artificial hip joint; Z79.899 Other long term (current) drug therapy
CPT/HCPCS: 70450; 71045; 80048; 80053; 80307; 81001; 82140; 83605; 83880; 85025; 85610; 99285; G0378

== ENCOUNTER 2017-09-21 12:04 | Inpatient (IN) | payer MEDICAID ==
[~2017-09-21 12:04] MED LIST changes: -OSEL75 PO; -OXYC1CAP PO
[2017-09-21 12:19] VITALS: BP 109/66; PULSE 63; RESP 16; TEMP 97.8; O2SAT 100
[2017-09-21] MEDS ORDERED: SODIUM CHLOR 0.9% 1000 ML INJ 1,000 ML IV ONE (13:00)
--- NOTE | 2017-09-21 13:04 | PD ---
HPI Chief Complaint: Altered Mental Status Time Seen by Provider: 12:52 Travel History International Travel<30 days: No Contact w/Intl Traveler<30days: No Traveled to known affect area: No History of Present Illness HPI This 52-year-old female is brought by her because of decreased level of consciousness. She has a history of liver failure. She was a drinker in the past but has not drank for several years. She does get recurrent bouts of hepatic encephalopathy. She takes lactulose at home. says that she was well yesterday. She was ambulatory and active. She cooked dinner last night. He says that this morning when it was time to get up she could not be awoken. She usually develops her hepatic encephalopathy more gradually. There is no history of trauma. Her carried her into the emergency department [facility] Past Medical History Hx Anticoagulant Therapy: No Arthritis: Yes Asthma: Yes Autoimmune Disease: No Anxiety: Yes Depression: Yes Heart Rhythm Problems: No Cancer: No Cardiovascular Problems: Yes High Cholesterol: No Chemotherapy: No Chest Pain: No Congestive Heart Failure: No Cirrhosis: Yes (End stage ) COPD: No Cerebrovascular Accident: No Diabetes: No Diminished Hearing: No Endocrine: Yes Gastrointestinal Disorders: Yes (Upper GIB, varices, bleeding ulcers ) GERD: No Genitourinary: No Headaches: No Hepatitis: Yes (Alcoholic ) Hiatal Hernia: Yes Heparin Induced Thrombocytopen: No Hypertension: No Immune Disorder: No Implanted Vascular Access Dvce: No Kidney Stones: No Medical other: Yes (ESOPHAGEAL VARICES; LIVER CIRRHOSIS; THROMBOCYTOPENIA ;) Musculoskeletal: Yes (neck is "puffy" pt states "its puffy cause i have a endocrine problem") Neurologic: No Psychiatric: Yes Reproductive: No Respiratory: No Immunizations Current: Yes Migraines: No Radiation Therapy: No Renal Failure: No Seizures: No Sickle Cell Disease: No Sleep Apnea: No Thyroid Disease: Yes (Hypothyroidism) Ulcer: No Influenza Vaccination: Yes ?: Not Menopausal: Yes Past Surgical History Abdominal Surgery: Yes (Umb. hernia repair ) AICD: No Body Medical Devices: NONE Cardiac Surgery: No Cholecystectomy: Yes (2006) Ear Surgery: No Endocrine Surgery: No Eye Surgery: No Genitourinary Surgery: No Gynecologic Surgery: No Hysterectomy: No Insulin Pump: No Joint Replacement: Yes (Lt. hip) Neurologic Surgery: No Oral Surgery: No Pacemaker: No Thoracic Surgery: No Other Surgery: Yes (Cholecystectomy) Social History Alcohol Use: No (H/O alcoholism ) Tobacco Use: No Substance Use: No Allergies-Medications (Allergen,Severity, Reaction): Coded Allergies: aspirin (Unverified Adverse Reaction, Severe, Bleeding, 09/21/17) codeine (Unverified Adverse Reaction, Severe, Vomiting, 09/21/17) morphine (Unverified Adverse Reaction, Severe, 09/21/17) Patient's states someone overdosed her on XR morphine nortriptyline (Unverified Adverse Reaction, Severe, Hallucinations, vomiting , 09/21/17) Reported Meds & Prescriptions Reported Meds & Active Scripts Active Lactulose Liq (Lactulose) 10 Gm/15 Ml Soln 30 Ml PO TID 30 Days administer between 2 to 3 times a day. If confused, administer an enema mixture of 150 ml liquid and 500 ml distillied water. Furosemide 20 Mg Tab 20 Mg PO DAILY half tab to full tab per day for ascites Propranolol (Propranolol HCl) 10 Mg Tab 10 Mg PO Q12HR Xifaxan (Rifaximin) 550 Mg Tab 550 Mg PO BID Zofran Odt (Ondansetron Odt) 4 Mg Tab 4 Mg SL Q8HR PRN Spironolactone 50 Mg Tab 50 Mg PO BIDPC Levothyroxine (Levothyroxine Sodium) 50 Mcg Tab 50 Mcg PO DAILY Reported Biotin 10 Mg Tab 10 Mg PO DAILY Magnesium Oxide 500 Mg Tab 500 Mg PO DAILY 30 Days Pantoprazole (Pantoprazole Sodium) 40 Mg Tab 40 Mg PO DAILY Review of Systems ROS Limitations: Unresponsive, Hearing Impaired, Speech Impaired, Poor Historian Physical Exam Narrative GENERAL: Well-developed female SKIN: Focused skin assessment warm/dry. HEAD: Atraumatic. Normocephalic. EYES: Pupils equal and round. No scleral icterus. No injection or drainage. ENT: No nasal bleeding or discharge. Mucous membranes pink and moist. NECK: Trachea midline. No JVD. CARDIOVASCULAR: Regular rate and rhythm. No murmur appreciated. RESPIRATORY: No accessory muscle use. Clear to auscultation. Breath sounds equal bilaterally. GASTROINTESTINAL: Abdomen soft, non-tender, nondistended. Hepatic edge is firm. MUSCULOSKELETAL: No obvious deformities. No clubbing. No cyanosis. No edema. NEUROLOGICAL: Patient is unresponsive. She opens her eyes and responds to stimulus. He does grimace at times.. PSYCHIATRIC: Not testable Data Data Last Documented VS Vital Signs Date Time Temp Pulse Resp B/P (MAP) Pulse Ox O2 Delivery O2 Flow Rate FiO2 09/21/17 12:19 97.8 63 16 109/66 (80) 100 Orders Orders Complete Blood Count With Diff (09/21/17 12:52) Comprehensive Metabolic Panel (09/21/17 12:52) Prothrombin Time / Inr (Pt) (09/21/17 12:52) Act Partial Throm Time (Ptt) (09/21/17 12:52) Magnesium (Mg) (09/21/17 12:52) Ammonia (09/21/17 12:52) Ct Brain W/O Iv Contrast(Rout) (09/21/17 12:52) Sodium Chlor 0.9% 1000 Ml Inj (Ns 1000 M (09/21/17 13:00) Lactulose Liq (Lactulose Liq) (09/21/17 13:45) Labs Laboratory Tests Test 09/21/17 13:00 White Blood Count 4.7 TH/MM3 Red Blood Count 3.56 MIL/MM3 Hemoglobin 10.0 GM/DL Hematocrit 31.1 % Mean Corpuscular Volume 87.5 FL Mean Corpuscular Hemoglobin 28.1 PG Mean Corpuscular Hemoglobin Concent 32.1 % Red Cell Distribution Width 21.3 % Platelet Count 147 TH/MM3 Mean Platelet Volume 7.4 FL Neutrophils (%) (Auto) 51.2 % Lymphocytes (%) (Auto) 22.1 % Monocytes (%) (Auto) 13.6 % Eosinophils (%) (Auto) 11.7 % Basophils (%) (Auto) 1.4 % Neutrophils # (Auto) 2.5 TH/MM3 Lymphocytes # (Auto) 1.0 TH/MM3 Monocytes # (Auto) 0.6 TH/MM3 Eosinophils # (Auto) 0.5 TH/MM3 Basophils # (Auto) 0.1 TH/MM3 CBC Comment DIFF FINAL Differential Comment Prothrombin Time 22.1 SEC Prothromb Time International Ratio 2.2 RATIO Activated Partial Thromboplast Time 28.5 SEC Blood Urea Nitrogen 10 MG/DL Creatinine 0.86 MG/DL Random Glucose 83 MG/DL Total Protein 7.9 GM/DL Albumin 2.2 GM/DL Calcium Level 7.9 MG/DL Magnesium Level 2.0 MG/DL Alkaline Phosphatase 218 U/L Aspartate Amino Transf (AST/SGOT) 54 U/L Alanine Aminotransferase (ALT/SGPT) 33 U/L Total Bilirubin 1.4 MG/DL Sodium Level 134 MEQ/L Potassium Level 4.3 MEQ/L Chloride Level 106 MEQ/L Carbon Dioxide Level 19.2 MEQ/L Anion Gap 9 MEQ/L Estimat Glomerular Filtration Rate 69 ML/MIN Ammonia 106 MCMOL/L MDM Medical Decision Making Medical Screen Exam Complete: Yes Emergency Medical Condition: Yes Medical Record Reviewed: Yes Differential Diagnosis Differential includes hepatic encephalopathy, altered mental status, intracerebral hemorrhage Narrative Course CT brain is unchanged from previous. There is noted to be some increased density in the right cerebellar pontine angle. Her ammonia level is 106. Diagnosis Primary Impression: Encephalopathy Admitting Information Admitting Physician Requests: Admit Flaco Torres MD Sep 21, 2017 13:04
[2017-09-21 13:12] LABS: AUTOMATED NEUTROPHIL # 2.5 TH/MM3 (1.8-7.7); BASOPHIL # 0.1 TH/MM3 (0-0.2); BASOPHIL % 1.4 % (0.0-2.0); EOSINOPHIL # 0.5 TH/MM3 (0-0.4); EOSINOPHIL % 11.7 % (0.0-4.0); HEMATOCRIT 31.1 % (35.0-46.0); LYMPH % 22.1 % (9.0-44.0); MEAN CELL VOLUME 87.5 FL (80.0-100.0); MEAN CORPUSCULAR HEMOGLOBIN 28.1 PG (27.0-34.0); MEAN CORPUSCULAR HGB CONC 32.1 % (32.0-36.0); MEAN PLATELET VOLUME 7.4 FL (7.0-11.0); MONO % 13.6 % (0.0-8.0); MONOCYTE # 0.6 TH/MM3 (0-0.9); NEUT % 51.2 % (16.0-70.0); PLATELET COUNT 147 TH/MM3 (150-450); RED BLOOD COUNT 3.56 MIL/MM3 (4.00-5.30); RED CELL DISTRIBUTION WIDTH 21.3 % (11.6-17.2); WHITE BLOOD COUNT 4.7 TH/MM3 (4.0-11.0)
--- NOTE | 2017-09-21 13:20 | RADRPT ---
EXAM DATE/TIME: 09/21/2017 13:08 [place] COMPARISON: CT BRAIN W/O CONTRAST, May 27, 2017, 15:07. CT BRAIN W/O CONTRAST, August 31, 2017, 14:46. INDICATIONS : Altered mental status. RADIATION DOSE: 63.24 CTDIvol (mGy) MEDICAL HISTORY : Cirrhosis. Cardiovascular disease Hypertension.Hepatitis. SURGICAL HISTORY : Umbilical hernia repair. Cholecystectomy. ENCOUNTER: Initial ACUITY: 4 - 6 days PAIN SCALE: 0/10 LOCATION: cranial TECHNIQUE: Multiple contiguous axial images were obtained of the head. Using automated exposure control and adj ustment of the mA and/or kV according to patient size, radiation dose was kept as low as reasonably a chievable to obtain optimal diagnostic quality images. DICOM format image data is available electro nically for review and comparison. FINDINGS: CEREBRUM: The ventricles are normal for age. Bilateral cortical atrophy over both frontal lobes. No evidence of midline shift, mass lesion, hemorrhage or acute infarction. No extra-axial fluid collections are se en. POSTERIOR FOSSA: There is a stable area of some increased density in the right cerebellar pontine angle. This was pres ent in the prior study and is stable and unchanged. No new or significant changes are seen involving the posterior fossa or midbrain. EXTRACRANIAL: The visualized portion of the orbits is intact. SKULL: The calvaria is intact. No evidence of skull fracture. CONCLUSION: Stable CT scan of the brain compared to prior study of 08/31/2017. No new or significant changes are se en. There is a stable area of some increased density in the right is cerebellar pontine angle. Deepak Rhoades MD on September 21, 2017 at 13:16 Board Certified Radiologist. This report was verified electronically.
[2017-09-21 13:25] LABS: CHLORIDE 106 MEQ/L (98-107); SODIUM (NA) 134 MEQ/L (136-145)
[2017-09-21 13:28] LABS: ALBUMIN 2.2 GM/DL (3.4-5.0); BICARBONATE 19.2 MEQ/L (21.0-32.0); CALCIUM 7.9 MG/DL (8.5-10.1); GLUCOSE,RANDOM 83 MG/DL (74-106)
[2017-09-21 13:29] LABS: BLOOD UREA NITROGEN 10 MG/DL (7-18)
[2017-09-21 13:30] LABS: INTERNATIONAL NORMALIZED RATIO 2.2 RATIO; PROTHROMBIN TIME - PATIENT 22.1 SEC (9.8-11.6)
[2017-09-21 13:31] LABS: ALT (GPT) 33 U/L (10-53); AST (GOT) 54 U/L (15-37); CREATININE 0.86 MG/DL (0.50-1.00); GLOMERULAR FILTRATION RATE 69 ML/MIN (>89)
[2017-09-21 13:33] LABS: TOTAL BILIRUBIN ADULT 1.4 MG/DL (0.2-1.0); TOTAL PROTEIN 7.9 GM/DL (6.4-8.2)
[2017-09-21 13:34] LABS: ALKALINE PHOSPHATASE 218 U/L (45-117)
[2017-09-21] MEDS ORDERED: LACTULOSE SYRUP 20 GM/30 ML CUP PO ONE (13:45)
[2017-09-21 13:57] VITALS: BP 99/61; PULSE 62; RESP 18; O2SAT 100
[2017-09-21] MEDS ORDERED: NALOXONE HCL 0.4 MG/ML AMP IV PUSH PRN (14:15)
[2017-09-21] MEDS ORDERED: MAGNESIUM HYDROXIDE SUSP 30 ML CUP PO PRN (14:15)
[2017-09-21] MEDS ORDERED: ONDANSETRON HCL 4 MG/2 ML VIAL IVP PRN (14:15)
[2017-09-21] MEDS ORDERED: SODIUM CHLORIDE 0.9% FLUSH 10 ML FLUSH IV FLUSH PRN (14:15)
[2017-09-21] MEDS: SODIUM CHLOR 0.9% 1000 ML INJ 1,000 ML IV SCH ×2 (15:02→23:56)
[2017-09-21 15:14] VITALS: BP 99/59
[2017-09-21 15:50] VITALS: BP 96/72; PULSE 64; RESP 20; TEMP 98.2; O2SAT 100
--- NOTE | 2017-09-21 18:14 | HHI.HP ---
[facility] Primary Care Physician David Vo MD Admission Diagnosis HEPATIC ENCEPHALOPATHY Diagnoses: Travel History International Travel<30 Days: No Contact w/Intl Traveler <30 Da: No Traveled to Known Affected Are: No History of Present Illness Mrs. Santamaria is a 52-year-old female. She is known at her hospital due to recurrent episodes of hepatic encephalopathy. Her brought her into the ER today secondary to altered mental status, confusion, and lethargy. She has an ammonia level of 106. Etiology for her confusion appears to be hepatic encephalopathy. No signs of infection. She is unable to provide any history. Review of Systems ROS Limitations: Altered Mental Status, Unresponsive, Refused, Poor Historian Past Family Social History Past Medical History Cirrhosis History of alcohol abuse Recurrent ascites Duodenal AVMs History of esophageal varices Hepatic encephalopathy Portal hypertension Chronic hyponatremia Chronic pancytopenia Past Surgical History EGD for variceal bleeds with banding Colonoscopy Cholecystectomy Left hip replacement Umbilical hernia repair Reported Medications Reported Meds & Active Scripts Active Lactulose Liq (Lactulose) 10 Gm/15 Ml Soln 30 Ml PO TID 30 Days administer between 2 to 3 times a day. If confused, administer an enema mixture of 150 ml liquid and 500 ml distillied water. Furosemide 20 Mg Tab 20 Mg PO DAILY half tab to full tab per day for ascites Propranolol (Propranolol HCl) 10 Mg Tab 10 Mg PO Q12HR Xifaxan (Rifaximin) 550 Mg Tab 550 Mg PO BID Zofran Odt (Ondansetron Odt) 4 Mg Tab 4 Mg SL Q8HR PRN Spironolactone 50 Mg Tab 50 Mg PO BIDPC Levothyroxine (Levothyroxine Sodium) 50 Mcg Tab 50 Mcg PO DAILY Reported Biotin 10 Mg Tab 10 Mg PO DAILY Magnesium Oxide 500 Mg Tab 500 Mg PO DAILY 30 Days Pantoprazole (Pantoprazole Sodium) 40 Mg Tab 40 Mg PO DAILY Allergies: Coded Allergies: aspirin (Unverified Adverse Reaction, Severe, Bleeding, 09/21/17) codeine (Unverified Adverse Reaction, Severe, Vomiting, 09/21/17) morphine (Unverified Adverse Reaction, Severe, 09/21/17) Patient's states someone overdosed her on XR morphine nortriptyline (Unverified Adverse Reaction, Severe, Hallucinations, vomiting , 09/21/17) Active Ordered Medications Administered Medications Medications (Trade) Dose Ordered Sig/Ángela Route PRN Reason Start Time Stop Time Status Last Admin Dose Admin Sodium Chloride 1,000 ml @ 100 mls/hr Q10H ONCE IV 09/21/17 13:00 09/21/17 22:59 09/21/17 13:32 Sodium Chloride 1,000 ml @ 100 mls/hr Q10H IV 09/21/17 14:13 09/21/17 15:02 Family History Patient is adopted, does not know specifics about her family history but she indicates that she believes her father and grandfather had alcohol abuse Social History No smoking No illicit drug abuse She quit using alcohol 5 years ago, prior to that she used to drink a bottle of vodka daily Physical Exam Vital Signs Vital Signs Date Time Temp Pulse Resp B/P (MAP) Pulse Ox O2 Delivery O2 Flow Rate FiO2 09/21/17 15:50 98.2 64 20 96/72 (80) 100 09/21/17 15:14 78 18 99/59 (72) 98 09/21/17 13:57 62 18 99/61 (74) 100 Room Air 09/21/17 12:19 97.8 63 16 109/66 (80) 100 Physical Exam GENERAL: NAD, A&Ox0 HEAD: Normocephalic. NECK: Supple, trachea midline. No lymphadenopathy. EYES: No scleral icterus. No injection or drainage. CARDIOVASCULAR: Regular rate and rhythm without murmurs, gallops, or rubs. RESPIRATORY: Breath sounds equal bilaterally. No accessory muscle use. GASTROINTESTINAL: Abdomen soft, non-tender, nondistended. MUSCULOSKELETAL: No cyanosis, or edema. SKIN: Warm and dry. NEURO: No focal neurological deficitis. Laboratory Laboratory Tests Test 09/21/17 13:00 White Blood Count 4.7 Red Blood Count 3.56 Hemoglobin 10.0 Hematocrit 31.1 Mean Corpuscular Volume 87.5 Mean Corpuscular Hemoglobin 28.1 Mean Corpuscular Hemoglobin Concent 32.1 Red Cell Distribution Width 21.3 Platelet Count 147 Mean Platelet Volume 7.4 Neutrophils (%) (Auto) 51.2 Lymphocytes (%) (Auto) 22.1 Monocytes (%) (Auto) 13.6 Eosinophils (%) (Auto) 11.7 Basophils (%) (Auto) 1.4 Neutrophils # (Auto) 2.5 Lymphocytes # (Auto) 1.0 Monocytes # (Auto) 0.6 Eosinophils # (Auto) 0.5 Basophils # (Auto) 0.1 CBC Comment DIFF FINAL Differential Comment Prothrombin Time 22.1 Prothromb Time International Ratio 2.2 Activated Partial Thromboplast Time 28.5 Blood Urea Nitrogen 10 Creatinine 0.86 Random Glucose 83 Total Protein 7.9 Albumin 2.2 Calcium Level 7.9 Magnesium Level 2.0 Alkaline Phosphatase 218 Aspartate Amino Transf (AST/SGOT) 54 Alanine Aminotransferase (ALT/SGPT) 33 Total Bilirubin 1.4 Sodium Level 134 Potassium Level 4.3 Chloride Level 106 Carbon Dioxide Level 19.2 Anion Gap 9 Estimat Glomerular Filtration Rate 69 Ammonia 106 Result Diagram: 09/21/17 1300 09/21/17 1300 Imaging Last Impressions Head CT 09/21/17 1252 Signed Impressions: Service Date/Time: Thursday, September 21, 2017 13:08 - CONCLUSION: Stable CT scan of the brain compared to prior study of 08/31/2017. No new or significant changes are seen. There is a stable area of some increased density in the right is cerebellar pontine angle. MD Ross Dockeryi VTE Risk Assessment Caprini VTE Risk Assessment: No/Low Risk (score <= 1) Caprini Risk Assessment Model Point Value = 1 Point Value = 2 Point Value = 3 Point Value = 5 Age 41-60 Minor surgery BMI > 25 kg/m2 Swollen legs Varicose veins or History of unexplained or recurrent spontaneous Oral contraceptives or hormone replacement Sepsis (< 1 month) Serious lung disease, including pneumonia (< 1 month) Abnormal pulmonary function Acute myocardial infarction Congestive heart failure (< 1 month) History of inflammatory bowel disease Medical patient at bed rest Age 61-74 Arthroscopic surgery Major open surgery (> 45 min) Laparoscopic surgery (> 45 min) Malignancy Confined to bed (> 72 hours) Immobilizing plaster cast Central venous access Age >= 75 History of VTE Family history of VTE Factor V Leiden Prothrombin [id number] Lupus anticoagulant Anticardiolipin antibodies Elevated serum homocysteine Heparin-induced thrombocytopenia Other congenital or acquired thrombophilia Stroke (< 1 month) Elective arthroplasty Hip, pelvis, or leg fracture Acute spinal cord injury (< 1 month) Prophylaxis Regimen Total Risk Factor Score Risk Level Prophylaxis Regimen 0-1 Low Early ambulation 2 Moderate Order ONE of the following: *Sequential Compression Device (SCD) *Heparin 5000 units SQ BID 3-4 Higher Order ONE of the following medications: *Heparin 5000 units SQ TID *Enoxaparin/Lovenox 40 mg SQ daily (WT < 150 kg, CrCl > 30 mL/min) *Enoxaparin/Lovenox 30 mg SQ daily (WT < 150 kg, CrCl > 10-29 mL/min) *Enoxaparin/Lovenox 30 mg SQ BID (WT < 150 kg, CrCl > 30 mL/min) AND/OR *Sequential Compression Device (SCD) 5 or more Highest Order ONE of the following medications: *Heparin 5000 units SQ TID (Preferred with Epidurals) *Enoxaparin/Lovenox 40 mg SQ daily (WT < 150 kg, CrCl > 30 mL/min) *Enoxaparin/Lovenox 30 mg SQ daily (WT < 150 kg, CrCl > 10-29 mL/min) *Enoxaparin/Lovenox 30 mg SQ BID (WT < 150 kg, CrCl > 30 mL/min) AND *Sequential Compression Device (SCD) Assessment and Plan Problem List: (1) Hepatic encephalopathy ICD Code: K72.90 - Hepatic failure, unspecified without coma (2) Liver failure ICD Code: K72.90 - Hepatic failure, unspecified without coma Status: Chronic (3) Metabolic encephalopathy ICD Code: G93.41 - Metabolic encephalopathy Status: Acute (4) Encephalopathy ICD Code: G93.40 - Encephalopathy, unspecified (5) Hyperammonemia ICD Code: E72.20 - Hyperammonemia Status: Acute (6) Ascites ICD Code: R18.8 - Other ascites Status: Acute (7) Alcoholic cirrhosis of liver ICD Code: K70.30 - Alcoholic cirrhosis of liver without ascites Status: Acute (8) Cirrhosis of liver Status: Chronic Assessment and Plan 52-year-old female admitted secondary to hepatic encephalopathy Hepatic encephalopathy exacerbation Lactulose IV hydration Follow mental status Follow ammonia levels Chronic hyponatremia Slight low reading today Follow sodium levels Chronic pancytopenia Follow CBC Cirrhosis History of alcohol abuse Recurrent ascites Duodenal AVMs History of esophageal varices Portal hypertension Follow these conditions clinically No change to baseline treatments DVT prophylaxis Bleed risk SCDs Physician Certification 2 Midnight Certification Type: Admission for Inpatient Services Order for Inpatient Services The services are ordered in accordance with Medicare regulations or non- Medicare payer requirements, as applicable. In the case of services not specified as inpatient-only, they are appropriately provided as inpatient services in accordance with the 2-midnight benchmark. Estimated LOS (days): 3 days is the estimated time the patient will need to remain in the hospital, assuming treatment plan goals are met and no additional complications. Post-Hospital Plan: Home Hussain Chaudhry MD Sep 21, 2017 18:14
[2017-09-21 20:00] VITALS: BP 101/53; PULSE 70; RESP 16; TEMP 97.8; O2SAT 100
[2017-09-21] MEDS: LACTULOSE SYRUP 20 GM/30 ML CUP PO SCH (21:04)
[2017-09-21] MEDS: SODIUM CHLORIDE 0.9% FLUSH 10 ML FLUSH IV FLUSH SCH (21:05)
[2017-09-21 21:14] LABS: BILIRUBIN, URINE NEG (NEG); BLOOD, URINE NEG (NEG); GLUCOSE,URINE NEG (NEG); KETONE, URINE NEG (NEG); NITRITE,URINE NEG (NEG); URINE COLOR YELLOW (YELLW/STRAW); URINE LEUKOCYTE ESTERASE NEG (NEG)
[2017-09-21 21:24] LABS: BACTERIA, URINE FEW /hpf; RBC, URINE 0-3 /hpf (0-3); SQUAMOUS EPITHELIAL CELL URINE 0-5 /hpf (0-5); WBC, URINE 0-2 /hpf (0-5)
[2017-09-22] VITALS: BP 96/52; PULSE 65; RESP 16; TEMP 97.8; O2SAT 100
[2017-09-22 06:39] LABS: AUTOMATED NEUTROPHIL # 1.5 TH/MM3 (1.8-7.7); BASOPHIL % 1.2 % (0.0-2.0); EOSINOPHIL # 0.5 TH/MM3 (0-0.4); EOSINOPHIL % 16.1 % (0.0-4.0); HEMATOCRIT 25.4 % (35.0-46.0); HEMOGLOBIN 8.4 GM/DL (11.6-15.3); LYMPH % 25.3 % (9.0-44.0); LYMPHOCYTE # 0.8 TH/MM3 (1.0-4.8); MEAN CELL VOLUME 86.9 FL (80.0-100.0); MEAN CORPUSCULAR HEMOGLOBIN 28.9 PG (27.0-34.0); MEAN CORPUSCULAR HGB CONC 33.2 % (32.0-36.0); MEAN PLATELET VOLUME 7.1 FL (7.0-11.0); MONO % 12.7 % (0.0-8.0); MONOCYTE # 0.4 TH/MM3 (0-0.9); NEUT % 44.7 % (16.0-70.0); PLATELET COUNT 109 TH/MM3 (150-450); RED BLOOD COUNT 2.93 MIL/MM3 (4.00-5.30); RED CELL DISTRIBUTION WIDTH 20.5 % (11.6-17.2); WHITE BLOOD COUNT 3.2 TH/MM3 (4.0-11.0)
[2017-09-22 06:47] LABS: ALBUMIN 1.8 GM/DL (3.4-5.0); BICARBONATE 17.5 MEQ/L (21.0-32.0); CALCIUM 7.3 MG/DL (8.5-10.1); CALCIUM-PROTEIN CORRECTED 7.8 MG/DL (8.5-10.1); CREATININE 0.73 MG/DL (0.50-1.00); TOTAL BILIRUBIN ADULT 1.6 MG/DL (0.2-1.0); TOTAL PROTEIN 6.1 GM/DL (6.4-8.2)
[2017-09-22 08:00] VITALS: BP 99/54; PULSE 68; RESP 16; TEMP 97.4; O2SAT 100
[2017-09-22] MEDS: SODIUM CHLORIDE 0.9% FLUSH 10 ML FLUSH IV FLUSH SCH (08:17)
[2017-09-22] MEDS: LACTULOSE SYRUP 20 GM/30 ML CUP PO SCH ×2 (08:17→12:24)
[2017-09-22] MEDS: SODIUM CHLOR 0.9% 1000 ML INJ 1,000 ML IV SCH (09:57)
[2017-09-22 12:00] VITALS: BP 106/59; PULSE 75; RESP 16; TEMP 97.7; O2SAT 100
--- NOTE | 2017-09-22 18:04 | HHI.DS ---
Discharge Summary Admission Date Sep 21, 2017 at 14:16 Discharge Date: Sep 22, 2017 Admitting Diagnosis HEPATIC ENCEPHALOPATHY (1) Hepatic encephalopathy ICD Code: K72.90 - Hepatic failure, unspecified without coma Diagnosis: Principal (2) Liver failure ICD Code: K72.90 - Hepatic failure, unspecified without coma Diagnosis: Principal Status: Chronic (3) Metabolic encephalopathy ICD Code: G93.41 - Metabolic encephalopathy Diagnosis: Principal Status: Acute (4) Encephalopathy ICD Code: G93.40 - Encephalopathy, unspecified Diagnosis: Principal (5) Hyperammonemia ICD Code: E72.20 - Hyperammonemia Diagnosis: Principal Status: Acute (6) Ascites ICD Code: R18.8 - Other ascites Diagnosis: Principal Status: Acute (7) Alcoholic cirrhosis of liver ICD Code: K70.30 - Alcoholic cirrhosis of liver without ascites Diagnosis: Principal Status: Acute (8) Cirrhosis of liver Diagnosis: Principal Status: Chronic Procedures None Brief History - From Admission Mrs. Santamaria is a 52-year-old female. She is known at her hospital due to recurrent episodes of hepatic encephalopathy. Her brought her into the ER today secondary to altered mental status, confusion, and lethargy. She has an ammonia level of 106. Etiology for her confusion appears to be hepatic encephalopathy. No signs of infection. She is unable to provide any history. CBC/BMP: 09/22/17 0613 09/22/17 0613 Significant Findings Laboratory Tests Test 09/21/17 13:00 09/21/17 20:50 09/22/17 06:13 09/22/17 12:55 Red Blood Count 3.56 MIL/MM3 (4.00-5.30) 2.93 MIL/MM3 (4.00-5.30) Hemoglobin 10.0 GM/DL (11.6-15.3) 8.4 GM/DL (11.6-15.3) Hematocrit 31.1 % (35.0-46.0) 25.4 % (35.0-46.0) Red Cell Distribution Width 21.3 % (11.6-17.2) 20.5 % (11.6-17.2) Platelet Count 147 TH/MM3 (150-450) 109 TH/MM3 (150-450) Monocytes (%) (Auto) 13.6 % (0.0-8.0) 12.7 % (0.0-8.0) Eosinophils (%) (Auto) 11.7 % (0.0-4.0) 16.1 % (0.0-4.0) Eosinophils # (Auto) 0.5 TH/MM3 (0-0.4) 0.5 TH/MM3 (0-0.4) Prothrombin Time 22.1 SEC (9.8-11.6) Albumin 2.2 GM/DL (3.4-5.0) 1.8 GM/DL (3.4-5.0) Calcium Level 7.9 MG/DL (8.5-10.1) 7.3 MG/DL (8.5-10.1) Alkaline Phosphatase 218 U/L (45-117) 121 U/L (45-117) Aspartate Amino Transf (AST/SGOT) 54 U/L (15-37) 40 U/L (15-37) Total Bilirubin 1.4 MG/DL (0.2-1.0) 1.6 MG/DL (0.2-1.0) Sodium Level 134 MEQ/L (136-145) Carbon Dioxide Level 19.2 MEQ/L (21.0-32.0) 17.5 MEQ/L (21.0-32.0) Estimat Glomerular Filtration Rate 69 ML/MIN (>89) 84 ML/MIN (>89) Ammonia 106 MCMOL/L (11-32) 75 MCMOL/L (11-32) 59 MCMOL/L (11-32) Urine Bacteria FEW /hpf (NONE) White Blood Count 3.2 TH/MM3 (4.0-11.0) Neutrophils # (Auto) 1.5 TH/MM3 (1.8-7.7) Lymphocytes # (Auto) 0.8 TH/MM3 (1.0-4.8) Random Glucose 72 MG/DL (74-106) Total Protein 6.1 GM/DL (6.4-8.2) Chloride Level 114 MEQ/L (98-107) Protein Corrected Calcium 7.8 MG/DL (8.5-10.1) Hospital Course Mrs. Camacho is a 52-year-old female. She was admitted secondary to hepatic encephalopathy. She has a history of recurrent admissions here related to the same thing. Lactulose was provided overnight and patient has returned to her prior baseline. Further monitoring during the day to ensure that she was below her baseline which she says is around 60. She started out at 106 and has trended down to below 60. Mental status has transition from obtunded and confused to [place] oriented and at her baseline. Medically cleared and stable for discharge to home today. Pt Condition on Discharge: Stable Discharge Disposition: Discharge Home Discharge Time: <= 30 minutes Discharge Instructions DIET: Follow Instructions for: As Tolerated, No Restrictions Additional Diet Instructions: Low protein (avoid excess protein) Activities you can perform: Regular-No Restrictions Follow up Referrals: PCP Follow-up - 2 Weeks PCP Follow-up Continued Medications: Biotin (Biotin) 10 Mg Tab 10 MG PO DAILY for Nutritional Supplement, #1 BOTTLE 0 Refills Furosemide (Furosemide) 20 Mg Tab 20 MG PO DAILY for ascities, #30 TAB 0 Refills half tab to full tab per day for ascites Lactulose Liq (Lactulose Liq) 10 Gm/15 Ml Soln 30 ML PO TID for hepatic encephalopathy for 30 Days, #1 LITER 0 Refills administer between 2 to 3 times a day. If confused, administer an enema mixture of 150 ml liquid and 500 ml distillied water. Levothyroxine (Levothyroxine) 50 Mcg Tab 50 MCG PO DAILY for Thyroid, #30 TAB 0 Refills Magnesium Oxide (Magnesium Oxide) 500 Mg Tab 500 MG PO DAILY for 30 Days, #30 TAB 0 Refills Ondansetron Odt (Zofran Odt) 4 Mg Tab 4 MG SL Q8HR PRN for Nausea/Vomiting, #30 TAB 0 Refills Pantoprazole (Pantoprazole) 40 Mg Tab 40 MG PO DAILY for Reflux, #30 TAB 0 Refills Propranolol (Propranolol) 10 Mg Tab 10 MG PO Q12HR for prevent esophageal bleed, #60 TAB 0 Refills Rifaximin (Xifaxan) 550 Mg Tab 550 MG PO BID for Liver, #60 TAB Spironolactone (Spironolactone) 50 Mg Tab 50 MG PO BIDPC for fluid retention, #60 TAB 0 Refills Hussain Chaudhry MD Sep 22, 2017 18:04
== END 2017-09-22 14:43 | disposition home or self-care (01) | DRG 441 ==
LOC: PHED 12:04 → PHEDA 14:16 → PH3A 15:06
PROVIDERS: ADMIT Hospitalist; ATTEND Hospitalist
DX: K72.90 Hepatic failure, unspecified without coma (principal); G93.41 Metabolic encephalopathy; D61.818 Other pancytopenia; K76.6 Portal hypertension; E87.1 Hypo-osmolality and hyponatremia; K70.31 Alcoholic cirrhosis of liver with ascites; E03.9 Hypothyroidism, unspecified; M19.90 Unspecified osteoarthritis, unspecified site; F10.21 Alcohol dependence, in remission; F32.9 Major depressive disorder, single episode, unspecified; F41.9 Anxiety disorder, unspecified; Z88.5 Allergy status to narcotic agent; Z88.6 Allergy status to analgesic agent; Z96.642 Presence of left artificial hip joint
CPT/HCPCS: 70450; 80053; 81001; 82140; 83735; 85025; 85610; 85730; 96360; J7030

== ENCOUNTER 2017-10-30 14:41 | Emergency (ER) | payer MEDICAID ==
[2017-10-30] MEDS: KETOROLAC TROMETHAMINE 60 MG/2 ML (IM) VIAL IM (15:55)
== END 2017-10-30 18:50 | disposition home or self-care (01) ==
LOC: PHED 14:41 → PHEFT 18:50
DX: S82.154A Nondisplaced fracture of right tibial tuberosity, initial encounter for closed fracture (principal); M25.461 Effusion, right knee; S80.212A Abrasion, left knee, initial encounter; S80.211A Abrasion, right knee, initial encounter; K74.60 Unspecified cirrhosis of liver; J45.909 Unspecified asthma, uncomplicated; F41.9 Anxiety disorder, unspecified; M19.90 Unspecified osteoarthritis, unspecified site; W01.0XXA Fall on same level from slipping, tripping and stumbling without subsequent striking against object, initial encounter
CPT/HCPCS: 73564; 73700; 96372; 99284-25